=== PATIENT | female | born 1965 | race Caucasian/White ===

== ENCOUNTER 2016-07-28 10:05 | Inpatient (IN) | payer BC ==
--- NOTE | 2016-07-28 10:26 | EDM.PDOC ---
ED HPI GENERAL MEDICAL PROBLEM - General Chief Complaint: General Stated Complaint: CHILLS, BODY ACHES, BLOOD SUGAR ISSUES X6 DAYS Time Seen by Provider: 07/28/16 10:26 - History of Present Illness INITIAL COMMENTS - FREE TEXT/NARRATIVE: 51-year-old female presents emergency room not feeling well. Patient has a history of type 1 diabetes usually she is well controlled but her blood sugars have been going high. Her appetite is decreased. She denies pain other than in her extremities mostly her joints that are just achy. Patient denies any breathing difficulties or shortness of breath no chest discomfort. She has had no abdominal pain no nausea no vomiting. The patient is somewhat stressed out because she has many things she would like to do but just doesn't have the energy to get it done. generalized Pain Score (Numeric/FACES): 8 - Related Data Allergies Allergy/AdvReac Type Severity Reaction Status Date / Time Influenza Virus Vaccines Allergy Itching Verified 07/28/16 10:23 pneumococcal vaccine Allergy Redness Verified 07/28/16 10:23 Home Meds: Home Meds Hydrochlorothiazide 25 mg PO DAILY 07/28/16 [History] Insulin Aspart [NovoLOG] 100 unit SUBCUT ASDIRECTED PRN 07/28/16 [History] Insulin Glarg,Human.Rec.Analog [LantUS] 0 unit SUBCUT DAILY 07/28/16 [History] Lisinopril 40 mg PO DAILY 07/28/16 [History] Meloxicam 15 mg PO DAILY 07/28/16 [History] [place]-3/DHA/Epa/Fish Oil [Fish Oil 1,000 mg Softgel] 1 each PO DAILY 07/28/16 [ History] Venlafaxine [Effexor XR] 37.5 mg PO DAILY 07/28/16 [History] traZODone HCl [Trazodone HCl] 50 mg PO BEDTIME PRN 07/28/16 [History] ED ROS GENERAL - Review of Systems Review Of Systems: See Below Constitutional: Reports: no symptoms HEENT: Reports: No symptoms Respiratory: Reports: No Symptoms Cardiovascular: Reports: No symptoms Endocrine: Reports: fatigue, high glucose GI/Abdominal: Reports: No symptoms : Reports: no symptoms Musculoskeletal: Reports: joint pain, muscle pain. Denies: joint swelling Skin: Reports: other (She's developed a yeast type rash in her left lower abdomen) Neurological: Reports: No Symptoms Psychiatric: Reports: No symptoms ED EXAM, GENERAL - Physical Exam Exam: See Below Exam Limited By: No limitations General Appearance: alert, no apparent distress, other (No distress no smell of ketones) Eye Exam: bilateral eye: normal inspection Ears: normal external exam, normal canal, hearing grossly normal, normal TMs Head: atraumatic, normocephalic Neck: normal inspection, supple, non-tender, full range of motion. No: lymphadenopathy (L), lymphadenopathy (R) Respiratory/Chest: no respiratory distress, lungs clear, normal breath sounds Cardiovascular: regular rate, rhythm, no edema, no murmur GI/Abdominal: normal bowel sounds, soft, non tender, no organomegaly, no distention, no abnormal bruit, no mass Back Exam: normal inspection Extremities: normal inspection, no pedal edema Neurological: alert, oriented, normal cognition EKG INTERPRETATION EKG Date: 07/28/16 Rhythm: NSR [place]: normal P-wave: present QRS: normal ST-T: normal QT: normal Comparison: NA - no prior EKG Course - Vital Signs Last Recorded V/S: Last Vital Signs Temp 36.7 C 07/28/16 10:15 Pulse 84 07/28/16 11:54 Resp 18 07/28/16 11:54 BP 141/80 H 07/28/16 11:54 Pulse Ox 97 07/28/16 11:54 - Orders/Labs/Meds Orders: Active Orders 24 hr Category Date Time Status Patient Status [ADT] Stat ADT 07/28/16 12:13 Active EKG Documentation Completion [RC] STAT Care 07/28/16 12:24 Active Height and Weight [RC] DAILY Care 07/28/16 12:32 Active Intake and Output [RC] QSHIFT Care 07/28/16 12:32 Active Oxygen Therapy [RC] PRN Care 07/28/16 12:32 Active RT Aerosol Therapy [RC] ASDIRECTED Care 07/28/16 12:34 Active Up With Assistance [RC] ASDIRECTED Care 07/28/16 12:32 Active Up ad Jaja [RC] ASDIRECTED Care 07/28/16 12:32 Active VTE/DVT Education [RC] PER UNIT ROUTINE Care 07/28/16 12:32 Active Vital Signs [RC] Q4H Care 07/28/16 12:32 Active Consult to Case Management [CONS] Routine Cons 07/28/16 12:34 Active Consult to Diabetic Nurse Specialist [CONS] Routine Cons 07/28/16 12:34 Active Consult to Latex Foam Worker [CONS] Routine Cons 07/28/16 12:34 Active Respiratory Care Assess and Treatment [CONS] Routine Cons 07/28/16 12:34 Active Consistent Carbohydrate Diet [DIET] Diet 07/28/16 Lunch Active BASIC METABOLIC PANEL,BMP [CHEM] AM Lab 07/29/16 05:11 Ordered BASIC METABOLIC PANEL,BMP [CHEM] AM Lab 07/30/16 05:11 Ordered BASIC METABOLIC PANEL,BMP [CHEM] AM Lab 07/31/16 05:11 Ordered BASIC METABOLIC PANEL,BMP [CHEM] AM Lab 08/01/16 05:11 Ordered C-REACTIVE PROTEIN [CHEM] AM Lab 07/29/16 05:11 Ordered C-REACTIVE PROTEIN [CHEM] AM Lab 07/30/16 05:11 Ordered C-REACTIVE PROTEIN [CHEM] AM Lab 07/31/16 05:11 Ordered CBC WITH AUTO DIFF [HEME] AM Lab 07/29/16 05:11 Ordered CBC WITH AUTO DIFF [HEME] AM Lab 07/30/16 05:11 Ordered CBC WITH AUTO DIFF [HEME] AM Lab 07/31/16 05:11 Ordered CBC WITH AUTO DIFF [HEME] AM Lab 08/01/16 05:11 Ordered CULTURE BLOOD [BC] Stat Lab 07/28/16 12:06 Received CULTURE BLOOD [BC] Stat Lab 07/28/16 12:16 Received CULTURE STREP A CONFIRMATION [RM] Stat Lab 07/28/16 10:50 Results CULTURE URINE [RM] Stat Lab 07/28/16 10:40 Received LIPID PANEL [CHEM] AM Lab 07/29/16 05:11 Ordered MAGNESIUM [CHEM] AM Lab 07/29/16 05:11 Ordered MAGNESIUM [CHEM] AM Lab 07/30/16 05:11 Ordered MAGNESIUM [CHEM] AM Lab 07/31/16 05:11 Ordered MAGNESIUM [CHEM] AM Lab 08/01/16 05:11 Ordered STREP SCRN A RAPID W CULT CONF [RM] Stat Lab 07/28/16 10:50 Results Acetaminophen [Tylenol] Med 07/28/16 12:32 Active 650 mg PO Q4H PRN Acetaminophen/HYDROcodone [[place] 325-5 MG] Med 07/28/16 12:32 Active 1 tab PO Q4H PRN Albuterol [Proventil Neb Soln] Med 07/28/16 12:32 Active 2.5 mg NEB Q2H PRN Aspirin Med 07/29/16 09:00 Ordered 81 mg PO DAILY Bisacodyl [Dulcolax] Med 07/28/16 12:32 Active 5 mg PO DAILY PRN Docusate Sodium/Sennosides [Senna Plus] Med 07/28/16 12:32 Active 1 tab PO BID PRN Enoxaparin [Lovenox] Med 07/29/16 09:00 Active 30 mg SUBCUT DAILY Fish Oil/[place]-3 Fatty Acids [Fish Oil] Med 07/29/16 09:00 Active 1 gm PO DAILY HYDROmorphone [Dilaudid] Med 07/28/16 12:32 Active 0.25 mg IVPUSH Q2H PRN Hydrochlorothiazide Med 07/29/16 09:00 Active 25 mg PO DAILY Insulin Aspart [NovoLOG] Med 07/28/16 12:37 Pending 100 unit SUBCUT ASDIRECTED PRN LORazepam [Ativan] Med 07/28/16 12:32 Active 1 mg IV Q6H PRN Lisinopril [Prinivil] Med 07/29/16 09:00 Active 40 mg PO DAILY Magnesium Rep Pharmacy to Dose [Pharmacy to Dose - Med 07/28/16 13:30 Ordered Magnesium Replacement] 1 dose .XX ASDIRECTED Ondansetron [Zofran] Med 07/28/16 12:32 Active 4 mg IV Q6H PRN Polyethylene Glycol 3350 [MiraLAX] Med 07/28/16 12:32 Active 17 gm PO DAILY PRN Potassium Rep Pharmacy to Dose [Pharmacy to Dose - Med 07/28/16 13:30 Ordered Potassium Replacement] 1 dose .XX ASDIRECTED Sodium Chloride 0.9% [Normal Saline] 1,000 ml Med 07/28/16 10:45 Active IV ASDIRECTED Temazepam [Restoril] Med 07/28/16 12:32 Active 15 mg PO BEDTIME PRN Venlafaxine [Effexor XR] Med 07/29/16 09:00 Active 37.5 mg PO DAILY cefTRIAXone [Rocephin] 1 gm Med 07/29/16 11:00 Active Sodium Chloride 0.9% [Normal Saline] 100 ml IV Q24H traZODone Med 07/28/16 12:37 Active 50 mg PO BEDTIME PRN Resuscitation Status Routine Resus Stat 07/28/16 12:32 Ordered Medication Orders Acetaminophen (Tylenol) 650 mg PO Q4H PRN PRN Reason: Pain (Mild 1-3)/fever Hydrocodone Bitart/Acetaminophen ([place] 325-5 Mg) 1 tab PO Q4H PRN PRN Reason: Pain (moderate 4-6) Albuterol (Proventil Neb Soln) 2.5 mg NEB Q2H PRN PRN Reason: Shortness Of Breath/wheezing Aspirin (Aspirin) 81 mg PO DAILY [facility] Bisacodyl (Dulcolax) 5 mg PO DAILY PRN PRN Reason: Constipation Enoxaparin Sodium (Lovenox) 30 mg SUBCUT DAILY [facility] Fish Oil (Fish Oil) 1 gm PO DAILY [facility] Hydrochlorothiazide (Hydrochlorothiazide) 25 mg PO DAILY [facility] Hydromorphone HCl (Dilaudid) 0.25 mg IVPUSH Q2H PRN PRN Reason: Pain (severe 7-10) Sodium Chloride (Normal Saline) 1,000 mls @ 125 mls/hr IV ASDIRECTED [facility] Last Infusion: 07/28/16 11:35 Dose: 999 mls/hr Admin: 07/28/16 11:01 Dose: 125 mls/hr Ceftriaxone Sodium 1 gm/ (Sodium Chloride) 100 mls @ 200 mls/hr IV Q24H [facility] Insulin Aspart (Novolog) 100 unit SUBCUT ASDIRECTED PRN PRN Reason: blood sugars Lisinopril (Prinivil) 40 mg PO DAILY [facility] Lorazepam (Ativan) 1 mg IV Q6H PRN PRN Reason: Anxiety Magnesium Sulfate (Pharmacy To Dose - Magnesium Replacement) 1 dose .XX ASDIRECTED [facility] Ondansetron HCl (Zofran) 4 mg IV Q6H PRN PRN Reason: Nausea/Vomiting Polyethylene Glycol (Miralax) 17 gm PO DAILY PRN PRN Reason: Constipation Potassium Chloride (Pharmacy To Dose - Potassium Replacement) 1 dose .XX ASDIRECTED [facility] Senna/Docusate Sodium (Senna Plus) 1 tab PO BID PRN PRN Reason: Constipation Temazepam (Restoril) 15 mg PO BEDTIME PRN PRN Reason: Sleep Trazodone HCl (Trazodone) 50 mg PO BEDTIME PRN PRN Reason: Sleep Venlafaxine HCl (Effexor Xr) 37.5 mg PO DAILY [facility] Labs: Laboratory Tests 07/28/16 07/28/16 07/28/16 Range/Units 10:40 10:50 10:50 WBC 4.81 (3.98-10.04) K/mm3 RBC 3.26 L (3.98-5.22) M/mm3 Hgb 11.7 (11.2-15.7) gm/L Hct 32.7 L (34.1-44.9) % MCV 100.3 H (79.4-94.8) fl MCH 35.9 H (25.6-32.2) pg MCHC 35.8 H (32.2-35.5) g/dl RDW Std Deviation 43.7 (36.4-46.3) fL Plt Count 113 L (182-369) K/mm3 MPV 10.6 (9.4-12.3) fl Neutrophils % (Manual) 72 H (40-60) % Band Neutrophils % 0 (0-10) % Lymphocytes % (Manual) 26 (20-40) % Atypical Lymphs % 0 % Monocytes % (Manual) 2 (2-10) % Eosinophils % (Manual) 0 L (0.7-5.8) % Basophils % (Manual) 0 L (0.1-1.2) Platelet Estimate Decreased Plt Morphology Comment See note Polychromasia Few Anisocytosis 1+ slight Macrocytosis 1+ slight RBC Morph Comment Not Reportable Sodium 128 L (136-145) mEq/L Potassium 3.5 (3.5-5.1) mEq/L Chloride 92 L (98-107) mEq/L Carbon Dioxide 23 (21-32) mEq/L Anion Gap 16.5 H (5-15) BUN 26 H (7-18) mg/dL Creatinine 1.8 H (0.55-1.02) mg/dL Est Cr Clr Drug Dosing 39.54 mL/min Estimated GFR (MDRD) 30 (>60) mL/min BUN/Creatinine Ratio 14.4 (14-18) Glucose 532 H* (74-106) mg/dL Hemoglobin A1c (4.50-6.20) % Calcium 8.5 (8.5-10.1) mg/dL Total Bilirubin 0.8 (0.2-1.0) mg/dL AST 17 (15-37) U/L ALT 33 (14-59) U/L Alkaline Phosphatase 80 (46-116) U/L C-Reactive Protein (<1.0) mg/dL Total Protein 7.7 (6.4-8.2) g/dl Albumin 3.4 (3.4-5.0) g/dl Globulin 4.3 gm/dL Albumin/Globulin Ratio 0.8 L (1-2) Urine Color Yellow (Yellow) Urine Appearance Cloudy H (Clear) Urine pH 5.5 (5.0-8.0) Ur Specific [place] 1.020 (1.005-1.030) Urine Protein 2+ H (Negative) Urine Glucose (UA) 2+ H (Negative) Urine Ketones Trace H (Negative) Urine Occult Blood 3+ H (Negative) Urine Nitrite Negative (Negative) Urine Bilirubin Negative (Negative) Urine Urobilinogen 0.2 (0.2-1.0) Ur Leukocyte Esterase Trace H (Negative) Urine RBC 5-10 H (0-5) /hpf Urine WBC 75-100 H (0-5) /hpf Ur Epithelial Cells Not Reportable Ur Squamous Epith Cells 10-20 H (0-5) /hpf Urine Bacteria Many H (FEW) /hpf Urine Mucus Not seen (FEW) /hpf Ketones (0.0-0.3) mM Monoscreen (NEGATIVE) 07/28/16 07/28/16 07/28/16 Range/Units 10:50 10:50 10:50 WBC (3.98-10.04) K/mm3 RBC (3.98-5.22) M/mm3 Hgb (11.2-15.7) gm/L Hct (34.1-44.9) % MCV (79.4-94.8) fl MCH (25.6-32.2) pg MCHC (32.2-35.5) g/dl RDW Std Deviation (36.4-46.3) fL Plt Count (182-369) K/mm3 MPV (9.4-12.3) fl Neutrophils % (Manual) (40-60) % Band Neutrophils % (0-10) % Lymphocytes % (Manual) (20-40) % Atypical Lymphs % % Monocytes % (Manual) (2-10) % Eosinophils % (Manual) (0.7-5.8) % Basophils % (Manual) (0.1-1.2) Platelet Estimate Plt Morphology Comment Polychromasia Anisocytosis Macrocytosis RBC Morph Comment Sodium (136-145) mEq/L Potassium (3.5-5.1) mEq/L Chloride (98-107) mEq/L Carbon Dioxide (21-32) mEq/L Anion Gap (5-15) BUN (7-18) mg/dL Creatinine (0.55-1.02) mg/dL Est Cr Clr Drug Dosing mL/min Estimated GFR (MDRD) (>60) mL/min BUN/Creatinine Ratio (14-18) Glucose (74-106) mg/dL Hemoglobin A1c 9.00 H (4.50-6.20) % Calcium (8.5-10.1) mg/dL Total Bilirubin (0.2-1.0) mg/dL AST (15-37) U/L ALT (14-59) U/L Alkaline Phosphatase (46-116) U/L C-Reactive Protein 5.0 H* (<1.0) mg/dL Total Protein (6.4-8.2) g/dl Albumin (3.4-5.0) g/dl Globulin gm/dL Albumin/Globulin Ratio (1-2) Urine Color (Yellow) Urine Appearance (Clear) Urine pH (5.0-8.0) Ur Specific [place] (1.005-1.030) Urine Protein (Negative) Urine Glucose (UA) (Negative) Urine Ketones (Negative) Urine Occult Blood (Negative) Urine Nitrite (Negative) Urine Bilirubin (Negative) Urine Urobilinogen (0.2-1.0) Ur Leukocyte Esterase (Negative) Urine RBC (0-5) /hpf Urine WBC (0-5) /hpf Ur Epithelial Cells Ur Squamous Epith Cells (0-5) /hpf Urine Bacteria (FEW) /hpf Urine Mucus (FEW) /hpf Ketones 0.90 (0.0-0.3) mM Monoscreen (NEGATIVE) 07/28/16 Range/Units 10:50 WBC (3.98-10.04) K/mm3 RBC (3.98-5.22) M/mm3 Hgb (11.2-15.7) gm/L Hct (34.1-44.9) % MCV (79.4-94.8) fl MCH (25.6-32.2) pg MCHC (32.2-35.5) g/dl RDW Std Deviation (36.4-46.3) fL Plt Count (182-369) K/mm3 MPV (9.4-12.3) fl Neutrophils % (Manual) (40-60) % Band Neutrophils % (0-10) % Lymphocytes % (Manual) (20-40) % Atypical Lymphs % % Monocytes % (Manual) (2-10) % Eosinophils % (Manual) (0.7-5.8) % Basophils % (Manual) (0.1-1.2) Platelet Estimate Plt Morphology Comment Polychromasia Anisocytosis Macrocytosis RBC Morph Comment Sodium (136-145) mEq/L Potassium (3.5-5.1) mEq/L Chloride (98-107) mEq/L Carbon Dioxide (21-32) mEq/L Anion Gap (5-15) BUN (7-18) mg/dL Creatinine (0.55-1.02) mg/dL Est Cr Clr Drug Dosing mL/min Estimated GFR (MDRD) (>60) mL/min BUN/Creatinine Ratio (14-18) Glucose (74-106) mg/dL Hemoglobin A1c (4.50-6.20) % Calcium (8.5-10.1) mg/dL Total Bilirubin (0.2-1.0) mg/dL AST (15-37) U/L ALT (14-59) U/L Alkaline Phosphatase (46-116) U/L C-Reactive Protein (<1.0) mg/dL Total Protein (6.4-8.2) g/dl Albumin (3.4-5.0) g/dl Globulin gm/dL Albumin/Globulin Ratio (1-2) Urine Color (Yellow) Urine Appearance (Clear) Urine pH (5.0-8.0) Ur Specific [place] (1.005-1.030) Urine Protein (Negative) Urine Glucose (UA) (Negative) Urine Ketones (Negative) Urine Occult Blood (Negative) Urine Nitrite (Negative) Urine Bilirubin (Negative) Urine Urobilinogen (0.2-1.0) Ur Leukocyte Esterase (Negative) Urine RBC (0-5) /hpf Urine WBC (0-5) /hpf Ur Epithelial Cells Ur Squamous Epith Cells (0-5) /hpf Urine Bacteria (FEW) /hpf Urine Mucus (FEW) /hpf Ketones (0.0-0.3) mM Monoscreen Negative (NEGATIVE) Meds: Medications Generic Name Dose Route Start Last Admin Trade Name Freq PRN Reason Stop Dose Admin Acetaminophen 650 mg 07/28/16 12:32 Tylenol PO Q4H PRN Pain (Mild 1-3)/fever Hydrocodone Bitart/Acetaminophen 1 tab 07/28/16 12:32 [place] 325-5 Mg PO Q4H PRN Pain (moderate 4-6) Albuterol 2.5 mg 07/28/16 12:32 Proventil Neb Soln NEB Q2H PRN Shortness Of Breath/wheezing Aspirin 81 mg 07/29/16 09:00 Aspirin PO DAILY [facility] Bisacodyl 5 mg 07/28/16 12:32 Dulcolax PO DAILY PRN Constipation Enoxaparin Sodium 30 mg 07/29/16 09:00 Lovenox SUBCUT DAILY [facility] Fish Oil 1 gm 07/29/16 09:00 Fish Oil PO DAILY [facility] Hydrochlorothiazide 25 mg 07/29/16 09:00 Hydrochlorothiazide PO DAILY [facility] Hydromorphone HCl 0.25 mg 07/28/16 12:32 Dilaudid IVPUSH Q2H PRN Pain (severe 7-10) Sodium Chloride 1,000 mls @ 125 mls/hr 07/28/16 10:45 07/28/16 11:35 Normal Saline IV 999 mls/hr ASDIRECTED [facility] Infusion Ceftriaxone Sodium 1 gm/ 100 mls @ 200 mls/hr 07/29/16 11:00 Sodium Chloride IV Q24H [facility] Insulin Aspart 100 unit 07/28/16 12:37 Novolog SUBCUT ASDIRECTED PRN blood sugars Lisinopril 40 mg 07/29/16 09:00 Prinivil PO DAILY [facility] Lorazepam 1 mg 07/28/16 12:32 Ativan IV Q6H PRN Anxiety Magnesium Sulfate 1 dose 07/28/16 13:30 Pharmacy To Dose - Magnesium Replacement .XX ASDIRECTED [facility] Ondansetron HCl 4 mg 07/28/16 12:32 Zofran IV Q6H PRN Nausea/Vomiting Polyethylene Glycol 17 gm 07/28/16 12:32 Miralax PO DAILY PRN Constipation Potassium Chloride 1 dose 07/28/16 13:30 Pharmacy To Dose - Potassium Replacement .XX ASDIRECTED [facility] Senna/Docusate Sodium 1 tab 07/28/16 12:32 Senna Plus PO BID PRN Constipation Temazepam 15 mg 07/28/16 12:32 Restoril PO BEDTIME PRN Sleep Trazodone HCl 50 mg 07/28/16 12:37 Trazodone PO BEDTIME PRN Sleep Venlafaxine HCl 37.5 mg 07/29/16 09:00 Effexor Xr PO DAILY [facility] Discontinued Medications Generic Name Dose Route Start Last Admin Trade Name Freq PRN Reason Stop Dose Admin Ceftriaxone Sodium 1 gm/ 100 mls @ 200 mls/hr 07/28/16 11:37 07/28/16 12:23 Sodium Chloride IV 07/28/16 12:06 200 mls/hr ONETIME ONE Administration Insulin Human Regular 5 unit 07/28/16 11:45 07/28/16 11:51 Humulin R IV 07/28/16 11:46 5 unit NOW STA Administration Protocol Ondansetron HCl 4 mg 07/28/16 11:01 07/28/16 11:05 Zofran IVPUSH 07/28/16 11:02 4 mg ONETIME ONE Administration - Re-Assessments/Exams Free Text/Narrative Re-Assessment/Exam: 07/28/16 12:17 Patient was evaluated she's had a long history of type 1 diabetes did not appear to be ketotic. She was started on fluids labs obtained she has a urinary tract infection appears to be dehydrated with hyponatremia and hypochloremia she is developing what looks like a prerenal azotemia. Ketones are normal. After labs reviewed she was given normal saline liter bolus and 5 units of IV insulin. Blood cultures obtained. She would receive a gram of Rocephin. Case discussed with Dr. Franklin the patient will be hospitalized. Departure - Departure Time of Disposition: 12:16 Disposition: Admitted As Inpatient 65 Clinical Impression: Urinary tract infection, Dehydration, Hyperglycemia due to type 1 diabetes mellitus Referrals: Hema Negrete MD [Primary Care Provider] - Forms: ED Department Discharge - My Orders Last 24 Hours: My Active Orders 07/28/16 10:40 CULTURE URINE [RM] Stat 07/28/16 10:45 Sodium Chloride 0.9% [Normal Saline] 1,000 ml IV ASDIRECTED 07/28/16 10:50 CULTURE STREP A CONFIRMATION [RM] Stat STREP SCRN A RAPID W CULT CONF [RM] Stat 07/28/16 12:06 CULTURE BLOOD [BC] Stat 07/28/16 12:13 Patient Status [ADT] Stat 07/28/16 12:16 CULTURE BLOOD [BC] Stat 07/28/16 12:24 EKG Documentation Completion [RC] STAT - Assessment/Plan Last 24 Hours: My Active Orders 07/28/16 10:40 CULTURE URINE [RM] Stat 07/28/16 10:45 Sodium Chloride 0.9% [Normal Saline] 1,000 ml IV ASDIRECTED 07/28/16 10:50 CULTURE STREP A CONFIRMATION [RM] Stat STREP SCRN A RAPID W CULT CONF [RM] Stat 07/28/16 12:06 CULTURE BLOOD [BC] Stat 07/28/16 12:13 Patient Status [ADT] Stat 07/28/16 12:16 CULTURE BLOOD [BC] Stat 07/28/16 12:24 EKG Documentation Completion [RC] STAT
[2016-07-28] MEDS ORDERED: Sodium Chloride 0.9% 1,000 ML IV SCH (10:45)
[2016-07-28] MEDS ORDERED: Ondansetron 4 MG/2 ML SDV IVPUSH ONE (11:01)
[2016-07-28] MEDS ORDERED: cefTRIAXone 1 GM in Sodium Chloride 0.9% 100 ML IV ONE (11:37)
[2016-07-28] MEDS ORDERED: Insulin Regular, Human 100 Units/ML 3 ML Vial IV STA (11:45)
[2016-07-28] MEDS ORDERED: Polyethylene Glycol 3350 Powder 17 GM Packet PO PRN (12:32)
[2016-07-28] MEDS ORDERED: Bisacodyl 5 MG Tab PO PRN (12:32)
[2016-07-28] MEDS ORDERED: HYDROmorphone 1 MG/ML Syringe IVPUSH PRN (12:32)
[2016-07-28] MEDS ORDERED: Albuterol 0.083% 2.5 MG/3 ML Neb Soln NEB PRN (12:32)
[2016-07-28] MEDS ORDERED: Temazepam 15 MG Cap PO PRN (12:32)
[2016-07-28] MEDS ORDERED: Acetaminophen 325 MG Tab PO PRN (12:32)
[2016-07-28] MEDS ORDERED: traZODone 50 MG Tab PO PRN (12:37)
[2016-07-28] MEDS ORDERED: Insulin Aspart 100 Units/ML 3 ML Pen SUBCUT PRN (12:37)
--- NOTE | 2016-07-28 12:37 | PCM.HP ---
H&P History of Present Illness - General Date of Service: 07/28/16 Admit Problem/Dx: Admission Diagnosis/Problem Admission Diagnosis/Problem Urinary tract infection Source of Information: Patient, Provider, RN notes reviewed History Limitations: Reports: No limitations - History of Present Illness Initial Comments - Free Text/Narative: This is a 51 yo white female with past medical hx/o HTN, Chronic Pain, Anxiety/ Depression and Insomnia who comes in with complaints of not feeling well associated with chills, w/o energy, decreased appetite and multiple joint/ muscle aches. She carries a hx/o DM1 which she has been having issues controlling it. She denies any fever, nausea, vomiting, diarrhea, shortness of breath, chest pain or abdominal pain. Her initial work up in ED shows a CBC remarkable for RBC 3.26, MCV 100.3 and Platelet of 113. Her chemistry is significant for Na 128, CL 92, BUN 26, CR 1.8 , BS 532, and CRP 5. UA is pos for UTI. Her ketones is 0.90. Patient was referred to me for medical management of DM 1 with hyperglycemia and UTI. She is full code. generalized Pain Score (Numeric/FACES): 8 - Related Data Allergies/Adverse Reactions: Allergies Allergy/AdvReac Type Severity Reaction Status Date / Time Influenza Virus Vaccines Allergy Itching Verified 07/28/16 10:23 pneumococcal vaccine Allergy Redness Verified 07/28/16 10:23 Home Medications: Home Meds Hydrochlorothiazide 25 mg PO DAILY 07/28/16 [History] Insulin Aspart [NovoLOG] 100 unit SUBCUT ASDIRECTED PRN 07/28/16 [History] Insulin Glarg,Human.Rec.Analog [LantUS] 0 unit SUBCUT DAILY 07/28/16 [History] Lisinopril 40 mg PO DAILY 07/28/16 [History] Meloxicam 15 mg PO DAILY 07/28/16 [History] [place]-3/DHA/Epa/Fish Oil [Fish Oil 1,000 mg Softgel] 1 each PO DAILY 07/28/16 [ History] Venlafaxine [Effexor XR] 37.5 mg PO DAILY 07/28/16 [History] traZODone HCl [Trazodone HCl] 50 mg PO BEDTIME PRN 07/28/16 [History] Past Medical History HEENT History: Reports: Impaired vision Respiratory History: Reports: Asthma 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: Reports: Fibroids, Other (see below) Other OB/BYN History: hysterectomy with overies intact Psychiatric History: Reports: Depression Endocrine/Metabolic History: Reports: Diabetes, type I Other Endocrine/Metabolic History: recent weight gain - Infectious Disease History Infectious Disease History: Reports: Chicken pox - Past Surgical History GI Surgical History: Reports: Appendectomy, Bariatric procedure, Cholecystectomy Dermatological Surgical History: Reports: Other (see below) Social & Family History - Family History Family Medical History: Noncontributory - Tobacco Use Smoking Status *Q: Never Smoker - Caffeine Use Caffeine Use: Reports: None - Recreational Drug Use Recreational Drug Use: No H&P Review of Systems - Review of Systems: Review Of Systems: See Below General: Reports: fatigue, decreased appetite. Denies: fever, chills HEENT: Reports: no symptoms Pulmonary: Denies: Shortness of Breath Cardiovascular: Denies: chest pain, palpitations, dyspnea on exertion, edema Gastrointestinal: Denies: Abdominal pain, Nausea, Vomiting Genitourinary: Reports: no symptoms Musculoskeletal: Reports: joint pain, muscle pain Skin: Reports: rash (yeast like on left lower abdomen) Psychiatric: Denies: depression, anxiety, hallucinations Neurological: Denies: Confusion, Dizziness, Seizure, Syncope, Difficulty Walking , Weakness, Gait Disturbance Hematologic/Lymphatic: Reports: no symptoms Immunologic: Reports: no symptoms Exam - Exam Exam: See Below - Vital Signs Vital Signs: Last Vital Signs Temp 36.7 C 07/28/16 10:15 Pulse 84 07/28/16 11:54 Resp 18 07/28/16 11:54 BP 141/80 H 07/28/16 11:54 Pulse Ox 97 07/28/16 11:54 Weight: 77.111 kg - Exam General: alert, oriented, cooperative, mild distress HEENT: Conjunctiva clear, EACs clear, EOMI, Hearing intact, Mucosa moist & pink , Nares patent, Normal nasal septum, Posterior pharynx clear, Pupils equal, Pupils reactive, TMs clear Neck: supple, trachea midline, 2+ carotid pulse wo bruit, full range of motion Lungs: Clear to auscultation, Normal respiratory effort Cardiovascular: regular rate, regular rhythm Abdomen: normal bowel sounds, soft, other (skin irritation on left abdominal fold ). No: organomegaly (Female) Exam: Deferred Rectal (Female) Exam: Deferred Back Exam: normal inspection, decreased range of motion Extremities: normal inspection, normal pulses, other (ecchymosis on left lutz). No: clubbing, cyanosis, calf tenderness, edema Skin: warm, dry, intact Neuro Extensive - Mental Status: oriented x3, normal cognition, memory intact Neuro Extensive - Motor, Sensory, Reflexes: CN II-XII intact, normal gait Psychiatric: alert, normal affect, normal mood - Patient Data Lab Results last 24 hrs: Laboratory Results - last 24 hr 07/28/16 07/28/16 07/28/16 Range/Units 10:40 10:50 10:50 WBC 4.81 (3.98-10.04) K/mm3 RBC 3.26 L (3.98-5.22) M/mm3 Hgb 11.7 (11.2-15.7) gm/L Hct 32.7 L (34.1-44.9) % MCV 100.3 H (79.4-94.8) fl MCH 35.9 H (25.6-32.2) pg MCHC 35.8 H (32.2-35.5) g/dl RDW Std Deviation 43.7 (36.4-46.3) fL Plt Count 113 L (182-369) K/mm3 MPV 10.6 (9.4-12.3) fl Neutrophils % (Manual) 72 H (40-60) % Band Neutrophils % 0 (0-10) % Lymphocytes % (Manual) 26 (20-40) % Atypical Lymphs % 0 % Monocytes % (Manual) 2 (2-10) % Eosinophils % (Manual) 0 L (0.7-5.8) % Basophils % (Manual) 0 L (0.1-1.2) Platelet Estimate Decreased Plt Morphology Comment See note Polychromasia Few Anisocytosis 1+ slight Macrocytosis 1+ slight RBC Morph Comment Not Reportable Sodium 128 L (136-145) mEq/L Potassium 3.5 (3.5-5.1) mEq/L Chloride 92 L (98-107) mEq/L Carbon Dioxide 23 (21-32) mEq/L Anion Gap 16.5 H (5-15) BUN 26 H (7-18) mg/dL Creatinine 1.8 H (0.55-1.02) mg/dL Est Cr Clr Drug Dosing 39.54 mL/min Estimated GFR (MDRD) 30 (>60) mL/min BUN/Creatinine Ratio 14.4 (14-18) Glucose 532 H* (74-106) mg/dL Calcium 8.5 (8.5-10.1) mg/dL Total Bilirubin 0.8 (0.2-1.0) mg/dL AST 17 (15-37) U/L ALT 33 (14-59) U/L Alkaline Phosphatase 80 (46-116) U/L Total Protein 7.7 (6.4-8.2) g/dl Albumin 3.4 (3.4-5.0) g/dl Globulin 4.3 gm/dL Albumin/Globulin Ratio 0.8 L (1-2) Urine Color Yellow (Yellow) Urine Appearance Cloudy H (Clear) Urine pH 5.5 (5.0-8.0) Ur Specific [place] 1.020 (1.005-1.030) Urine Protein 2+ H (Negative) Urine Glucose (UA) 2+ H (Negative) Urine Ketones Trace H (Negative) Urine Occult Blood 3+ H (Negative) Urine Nitrite Negative (Negative) Urine Bilirubin Negative (Negative) Urine Urobilinogen 0.2 (0.2-1.0) Ur Leukocyte Esterase Trace H (Negative) Urine RBC 5-10 H (0-5) /hpf Urine WBC 75-100 H (0-5) /hpf Ur Epithelial Cells Not Reportable Ur Squamous Epith Cells 10-20 H (0-5) /hpf Urine Bacteria Many H (FEW) /hpf Urine Mucus Not seen (FEW) /hpf Ketones (0.0-0.3) mM 07/28/16 Range/Units 10:50 WBC (3.98-10.04) K/mm3 RBC (3.98-5.22) M/mm3 Hgb (11.2-15.7) gm/L Hct (34.1-44.9) % MCV (79.4-94.8) fl MCH (25.6-32.2) pg MCHC (32.2-35.5) g/dl RDW Std Deviation (36.4-46.3) fL Plt Count (182-369) K/mm3 MPV (9.4-12.3) fl Neutrophils % (Manual) (40-60) % Band Neutrophils % (0-10) % Lymphocytes % (Manual) (20-40) % Atypical Lymphs % % Monocytes % (Manual) (2-10) % Eosinophils % (Manual) (0.7-5.8) % Basophils % (Manual) (0.1-1.2) Platelet Estimate Plt Morphology Comment Polychromasia Anisocytosis Macrocytosis RBC Morph Comment Sodium (136-145) mEq/L Potassium (3.5-5.1) mEq/L Chloride (98-107) mEq/L Carbon Dioxide (21-32) mEq/L Anion Gap (5-15) BUN (7-18) mg/dL Creatinine (0.55-1.02) mg/dL Est Cr Clr Drug Dosing mL/min Estimated GFR (MDRD) (>60) mL/min BUN/Creatinine Ratio (14-18) Glucose (74-106) mg/dL Calcium (8.5-10.1) mg/dL Total Bilirubin (0.2-1.0) mg/dL AST (15-37) U/L ALT (14-59) U/L Alkaline Phosphatase (46-116) U/L Total Protein (6.4-8.2) g/dl Albumin (3.4-5.0) g/dl Globulin gm/dL Albumin/Globulin Ratio (1-2) Urine Color (Yellow) Urine Appearance (Clear) Urine pH (5.0-8.0) Ur Specific [place] (1.005-1.030) Urine Protein (Negative) Urine Glucose (UA) (Negative) Urine Ketones (Negative) Urine Occult Blood (Negative) Urine Nitrite (Negative) Urine Bilirubin (Negative) Urine Urobilinogen (0.2-1.0) Ur Leukocyte Esterase (Negative) Urine RBC (0-5) /hpf Urine WBC (0-5) /hpf Ur Epithelial Cells Ur Squamous Epith Cells (0-5) /hpf Urine Bacteria (FEW) /hpf Urine Mucus (FEW) /hpf Ketones 0.90 (0.0-0.3) mM Result Diagrams: 07/28/16 10:50 07/28/16 10:50 Shawn Results last 24 hrs: Microbiology 07/28/16 10:50 Influenza Type A Antigen Screen - Final Nasal, Left NEGATIVE INFLUENZA A VIRUS AG Influenza Type B Antigen Screen - Final NEGATIVE INFLUENZA B VIRUS AG 07/28/16 10:50 Group A Streptococcus Rapid Screen - Final Throat NEGATIVE STREP A SCREEN *Q Meaningful Use (ADM) - VTE *Q VTE Criteria *Q: - Stroke *Q Stroke Criteria *Q: - AMI *Q AMI Criteria *Q: Problem List Initiated/Reviewed/Updated: Yes Orders Last 24hrs: Active Orders 24 hr Category Date Time Status Patient Status [ADT] Stat ADT 07/28/16 12:13 Active EKG Documentation Completion [RC] STAT Care 07/28/16 12:24 Active Height and Weight [RC] DAILY Care 07/28/16 12:32 Active Intake and Output [RC] QSHIFT Care 07/28/16 12:32 Active Oxygen Therapy [RC] PRN Care 07/28/16 12:32 Active RT Aerosol Therapy [RC] ASDIRECTED Care 07/28/16 12:34 Active Up With Assistance [RC] ASDIRECTED Care 07/28/16 12:32 Active Up ad Jaja [RC] ASDIRECTED Care 07/28/16 12:32 Active VTE/DVT Education [RC] PER UNIT ROUTINE Care 07/28/16 12:32 Active Vital Signs [RC] Q4H Care 07/28/16 12:32 Active Consult to Case Management [CONS] Routine Cons 07/28/16 12:34 Active Consult to Diabetic Nurse Specialist [CONS] Routine Cons 07/28/16 12:34 Active Consult to Tool Grinding Technician [CONS] Routine Cons 07/28/16 12:34 Active Respiratory Care Assess and Treatment [CONS] Routine Cons 07/28/16 12:34 Active Consistent Carbohydrate Diet [DIET] Diet 07/28/16 Lunch Active A1C [GLYCOSYLATED HEMOGLOBIN,HGBA1C] [CHEM] Stat Lab 07/28/16 12:36 Ordered BASIC METABOLIC PANEL,BMP [CHEM] AM Lab 07/29/16 05:11 Ordered BASIC METABOLIC PANEL,BMP [CHEM] AM Lab 07/30/16 05:11 Ordered BASIC METABOLIC PANEL,BMP [CHEM] AM Lab 07/31/16 05:11 Ordered BASIC METABOLIC PANEL,BMP [CHEM] AM Lab 08/01/16 05:11 Ordered C-REACTIVE PROTEIN [CHEM] AM Lab 07/29/16 05:11 Ordered C-REACTIVE PROTEIN [CHEM] AM Lab 07/30/16 05:11 Ordered C-REACTIVE PROTEIN [CHEM] AM Lab 07/31/16 05:11 Ordered C-REACTIVE PROTEIN [CHEM] Stat Lab 07/28/16 12:34 Ordered CBC WITH AUTO DIFF [HEME] AM Lab 07/29/16 05:11 Ordered CBC WITH AUTO DIFF [HEME] AM Lab 07/30/16 05:11 Ordered CBC WITH AUTO DIFF [HEME] AM Lab 07/31/16 05:11 Ordered CBC WITH AUTO DIFF [HEME] AM Lab 08/01/16 05:11 Ordered CULTURE BLOOD [BC] Stat Lab 07/28/16 12:06 Received CULTURE BLOOD [BC] Stat Lab 07/28/16 12:16 Received CULTURE STREP A CONFIRMATION [RM] Stat Lab 07/28/16 10:50 Results CULTURE URINE [RM] Stat Lab 07/28/16 10:40 Received MAGNESIUM [CHEM] AM Lab 07/29/16 05:11 Ordered MAGNESIUM [CHEM] AM Lab 07/30/16 05:11 Ordered MAGNESIUM [CHEM] AM Lab 07/31/16 05:11 Ordered MAGNESIUM [CHEM] AM Lab 08/01/16 05:11 Ordered STREP SCRN A RAPID W CULT CONF [RM] Stat Lab 07/28/16 10:50 Results Acetaminophen [Tylenol] Med 07/28/16 12:32 Ordered 650 mg PO Q4H PRN Acetaminophen/HYDROcodone [[place] 325-5 MG] Med 07/28/16 12:32 Ordered 1 tab PO Q4H PRN Albuterol [Proventil Neb Soln] Med 07/28/16 12:32 Ordered 2.5 mg NEB Q2H PRN Bisacodyl [Dulcolax] Med 07/28/16 12:32 Ordered 5 mg PO DAILY PRN Docusate Sodium/Sennosides [Senna Plus] Med 07/28/16 12:32 Ordered 1 tab PO BID PRN Enoxaparin [Lovenox] Med 07/29/16 09:00 Ordered 30 mg SUBCUT DAILY HYDROmorphone [Dilaudid] Med 07/28/16 12:32 Ordered 0.25 mg IVPUSH Q2H PRN LORazepam [Ativan] Med 07/28/16 12:32 Ordered 1 mg IV Q6H PRN Ondansetron [Zofran] Med 07/28/16 12:32 Ordered 4 mg IV Q6H PRN Polyethylene Glycol 3350 [MiraLAX] Med 07/28/16 12:32 Ordered 17 gm PO DAILY PRN Sodium Chloride 0.9% [Normal Saline] 1,000 ml Med 07/28/16 10:45 Active IV ASDIRECTED Temazepam [Restoril] Med 07/28/16 12:32 Ordered 15 mg PO BEDTIME PRN Resuscitation Status Routine Resus Stat 07/28/16 12:32 Ordered Medication Orders Sodium Chloride (Normal Saline) 1,000 mls @ 125 mls/hr IV ASDIRECTED MAGO Last Infusion: 07/28/16 11:35 Dose: 999 mls/hr Admin: 07/28/16 11:01 Dose: 125 mls/hr Assessment/Plan Comment:: Assessment/Plan: Acute: Urinary Tract Infection - UA pos - CRP 5.0 - Risk factor: poorly controlled DM - UA Cx and Sx - IV Rocephin 1 gram daily Hyperglycemia with DM1.5 (LEE) - She used to be DM2 and now DM1 - BS 532 - Ketones 0.90 (normal) - A1C in April in the 5s per patient - A1C now is 9 - Insulin Regimen: she used to be on LA and SA, now only uses Lantus and units varies based on her intake - Patient I think is non-compliant - Accu-check and ISS - New Insulin Regimen based on weight: 38 TDI 19 units for Lantus in AM and 6 units Novolog SubQ with each meal Pseudo-hyponatremia - NA 128 - 2/2 Hyperglycemia - Treatment underlying cause Dehydration - BUN/Cr 26/1.8 - Spec 1.020 - She is clinically dehydrated - IV NS at 125 cc/hr Generalized Join/Muscle Aches - Strep and Influenza negative - Screen for Mononucleosis - Supportive care 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
[2016-07-28] MEDS ORDERED: 50% Dextrose in Water 50 ML Syringe IVPUSH PRN (15:26)
[2016-07-28] MEDS: Potassium Chloride 20 MEQ Tab.ER PO SCH ×2 (15:49→17:01)
[2016-07-28] MEDS: Insulin Aspart 100 Units/ML 3 ML Pen SUBCUT SCH ×3 (16:38→21:01)
[2016-07-28] MEDS: Sodium Chloride 0.9% 1,000 ML IV SCH (16:45)
[2016-07-28] MEDS ORDERED: Insulin Aspart 100 Units/ML 3 ML Pen SUBCUT SCH (17:00)
[2016-07-28] MEDS: Ondansetron 4 MG/2 ML SDV IV PRN (17:55)
[2016-07-28] MEDS: Temazepam 15 MG Cap PO PRN (21:06)
[2016-07-28] MEDS: Multivitamin/Iron/Folic Acid Tab PO SCH (22:06)
[2016-07-28] MEDS: Nystatin Topical Powder 15 GM Bottle TOP SCH (22:07)
[2016-07-29] MEDS: Sodium Chloride 0.9% 1,000 ML IV SCH ×3 (01:06→16:37)
[2016-07-29] MEDS: Ondansetron 4 MG/2 ML SDV IV PRN ×3 (07:45→18:30)
--- NOTE | 2016-07-29 07:55 | PCM.PN ---
- General Info Date of Service: 07/29/16 Admission Dx/Problem (Free Text): Admission Diagnosis/Problem Admission Diagnosis/Problem Urinary tract infection Subjective Update: Follow Up Functional Status: Reports: pain controlled, tolerating diet, ambulating, urinating. Denies: new symptoms - Review of Systems General: Reports: Malaise. Denies: Fever, Chills HEENT: Reports: no symptoms Pulmonary: Denies: shortness of breath Cardiovascular: Denies: Chest Pain, Edema Gastrointestinal: Denies: Abdominal pain, Nausea, Vomiting Genitourinary: Reports: no symptoms Musculoskeletal: Reports: joint pain, other (muscle aches) Skin: Denies: cyanosis, jaundice, pruritis, rash Neurological: Reports: Weakness. Denies: Confusion, Difficulty Walking Psychiatric: Denies: depression, anxiety, hallucinations Systems Review Comment:: No overnight issues. She slept very well. She feels better. Her UA is pos for GNR. She has no new complaints. He BS is not well controlled. Hgb is 9.5 from 11.7, Mg is 1.1 and lipid panel is abnormal. - Patient Data Vitals - most recent: Last Vital Signs Temp 37.2 C 07/29/16 07:35 Pulse 89 07/29/16 07:35 Resp 13 07/29/16 07:35 BP 144/83 H 07/29/16 07:35 Pulse Ox 98 07/29/16 07:35 Weight - most recent: 79.515 kg I&O - last 24 hours: Intake & Output 07/28/16 07/29/16 07/29/16 22:59 06:59 14:59 Intake Total 1480 800 Output Total 1150 Balance 1480 -350 Lab Results last 24 hrs: Laboratory Results - last 24 hr 07/28/16 07/28/16 07/28/16 Range/Units 13:42 16:37 21:00 WBC (3.98-10.04) K/mm3 RBC (3.98-5.22) M/mm3 Hgb (11.2-15.7) gm/L Hct (34.1-44.9) % MCV (79.4-94.8) fl MCH (25.6-32.2) pg MCHC (32.2-35.5) g/dl RDW Std Deviation (36.4-46.3) fL Plt Count (182-369) K/mm3 MPV (9.4-12.3) fl Neut % (Auto) (34.0-71.1) % Lymph % (Auto) (19.3-51.7) % Hayes % (Auto) (4.7-12.5) % Eos % (Auto) (0.7-5.8) Baso % (Auto) (0.1-1.2) % Neut # (Auto) (1.56-6.13) K/mm3 Lymph # (Auto) (1.18-3.74) K/mm3 Hayes # (Auto) (0.24-0.36) K/mm3 Eos # (Auto) (0.04-0.36) K/mm3 Baso # (Auto) (0.01-0.08) K/mm3 Manual Slide Review Sodium (136-145) mEq/L Potassium (3.5-5.1) mEq/L Chloride (98-107) mEq/L Carbon Dioxide (21-32) mEq/L Anion Gap (5-15) BUN (7-18) mg/dL Creatinine (0.55-1.02) mg/dL Est Cr Clr Drug Dosing mL/min Estimated GFR (MDRD) (>60) mL/min BUN/Creatinine Ratio (14-18) Glucose (74-106) mg/dL POC Glucose 281 H 297 H 288 H (70-105) mg/dL Calcium (8.5-10.1) mg/dL Magnesium (1.8-2.4) mg/dl C-Reactive Protein (<1.0) mg/dL Triglycerides (<150) mg/dL Cholesterol (<200) mg/dL LDL Cholesterol Direct (<100) mg/dL HDL Cholesterol (40-59) mg/dL 07/29/16 07/29/16 07/29/16 Range/Units 06:00 06:00 06:19 WBC 4.88 (3.98-10.04) K/mm3 RBC 2.68 L (3.98-5.22) M/mm3 Hgb 9.5 L (11.2-15.7) gm/L Hct 27.5 L (34.1-44.9) % MCV 102.6 H (79.4-94.8) fl MCH 35.4 H (25.6-32.2) pg MCHC 34.5 (32.2-35.5) g/dl RDW Std Deviation 44.4 (36.4-46.3) fL Plt Count 112 L (182-369) K/mm3 MPV 10.2 (9.4-12.3) fl Neut % (Auto) 49.0 (34.0-71.1) % Lymph % (Auto) 34.4 (19.3-51.7) % Hayes % (Auto) 12.7 H (4.7-12.5) % Eos % (Auto) 1.4 (0.7-5.8) Baso % (Auto) 2.3 H (0.1-1.2) % Neut # (Auto) 2.39 (1.56-6.13) K/mm3 Lymph # (Auto) 1.68 (1.18-3.74) K/mm3 Hayes # (Auto) 0.62 H (0.24-0.36) K/mm3 Eos # (Auto) 0.07 (0.04-0.36) K/mm3 Baso # (Auto) 0.11 H (0.01-0.08) K/mm3 Manual Slide Review Abnormal smear Sodium 139 (136-145) mEq/L Potassium 4.2 (3.5-5.1) mEq/L Chloride 105 (98-107) mEq/L Carbon Dioxide 23 (21-32) mEq/L Anion Gap 15.2 H (5-15) BUN 17 (7-18) mg/dL Creatinine 1.2 H (0.55-1.02) mg/dL Est Cr Clr Drug Dosing 59.30 mL/min Estimated GFR (MDRD) 47 (>60) mL/min BUN/Creatinine Ratio 14.2 (14-18) Glucose 297 H (74-106) mg/dL POC Glucose 242 H (70-105) mg/dL Calcium 7.8 L (8.5-10.1) mg/dL Magnesium 1.1 L (1.8-2.4) mg/dl C-Reactive Protein 4.4 H* (<1.0) mg/dL Triglycerides 187 H (<150) mg/dL Cholesterol 128 (<200) mg/dL LDL Cholesterol Direct 67 (<100) mg/dL HDL Cholesterol 36.0 L (40-59) mg/dL Med Orders - Current: Current Medications Acetaminophen (Tylenol) 650 mg PO Q4H PRN PRN Reason: Pain (Mild 1-3)/fever Last Admin: 07/28/16 17:05 Dose: 650 mg Hydrocodone Bitart/Acetaminophen (Britton 325-5 Mg) 1 tab PO Q4H PRN PRN Reason: Pain (moderate 4-6) Albuterol (Proventil Neb Soln) 2.5 mg NEB Q2H PRN PRN Reason: Shortness Of Breath/wheezing Aspirin (Aspirin) 81 mg PO DAILY [facility] Bisacodyl (Dulcolax) 5 mg PO DAILY PRN PRN Reason: Constipation Cyanocobalamin (Vitamin B12) 1,000 mcg PO DAILY [facility] Dextrose/Water (Dextrose 50% In Water) 50 ml IVPUSH ASDIRECTED PRN PRN Reason: Hypoglycemia Enoxaparin Sodium (Lovenox) 30 mg SUBCUT DAILY [facility] Fish Oil (Fish Oil) 1 gm PO DAILY [facility] Hydrochlorothiazide (Hydrochlorothiazide) 25 mg PO DAILY [facility] Hydromorphone HCl (Dilaudid) 0.25 mg IVPUSH Q2H PRN PRN Reason: Pain (severe 7-10) Ceftriaxone Sodium 1 gm/ (Sodium Chloride) 100 mls @ 200 mls/hr IV Q24H [facility] Sodium Chloride (Normal Saline) 1,000 mls @ 125 mls/hr IV ASDIRECTED [facility] Last Admin: 07/29/16 01:06 Dose: 125 mls/hr Insulin Aspart (Novolog) 6 unit SUBCUT TIDAC [facility] Last Admin: 07/28/16 16:38 Dose: 6 units Insulin Aspart (Novolog) 0 unit SUBCUT QIDACANDBED [facility] PRN Reason: Protocol Last Admin: 07/28/16 21:01 Dose: 6 units Insulin Detemir (Levemir) 19 unit SUBCUT DAILY [facility] Lisinopril (Prinivil) 40 mg PO DAILY [facility] Lorazepam (Ativan) 1 mg IV Q6H PRN PRN Reason: Anxiety Magnesium Sulfate (Pharmacy To Dose - Magnesium Replacement) 1 dose .XX ASDIRECTED [facility] Multivitamins/Minerals (Cerovite Advanced Formula Tablet) 1 tab PO BEDTIME [facility] Last Admin: 07/28/16 22:06 Dose: Not Given Nystatin (Nystop) 1 gm TOP BID [facility] Last Admin: 07/28/16 22:07 Dose: 1 applic Nystatin/Triamcinolone Acetonide (Mycolog Crm) 0 gm TOP BID [facility] Last Admin: 07/28/16 22:06 Dose: Not Given Ondansetron HCl (Zofran) 4 mg IV Q6H PRN PRN Reason: Nausea/Vomiting Last Admin: 07/29/16 07:45 Dose: 4 mg Polyethylene Glycol (Miralax) 17 gm PO DAILY PRN PRN Reason: Constipation Potassium Chloride (Pharmacy To Dose - Potassium Replacement) 1 dose .XX ASDIRECTED [facility] Senna/Docusate Sodium (Senna Plus) 1 tab PO BID PRN PRN Reason: Constipation Temazepam (Restoril) 30 mg PO BEDTIME PRN PRN Reason: Sleep Last Admin: 07/28/16 21:06 Dose: 30 mg Trazodone HCl (Trazodone) 50 mg PO BEDTIME PRN PRN Reason: Sleep Triamcinolone Acetonide (Triamcinolone Acetonide 0.1% Crm) 15 gm TOP BID [facility] Venlafaxine HCl (Effexor Xr) 37.5 mg PO DAILY [facility] Discontinued Medications Sodium Chloride (Normal Saline) 1,000 mls @ 125 mls/hr IV ASDIRECTED [facility] Last Infusion: 07/28/16 11:35 Dose: 999 mls/hr Ceftriaxone Sodium 1 gm/ (Sodium Chloride) 100 mls @ 200 mls/hr IV ONETIME ONE Stop: 07/28/16 12:06 Last Admin: 07/28/16 12:23 Dose: 200 mls/hr Insulin Aspart (Novolog) 100 unit SUBCUT ASDIRECTED PRN PRN Reason: blood sugars Insulin Aspart (Novolog) 0 unit SUBCUT QIDACANDBED [facility] PRN Reason: Protocol Insulin Human Regular (Humulin R) 5 unit IV NOW STA PRN Reason: Protocol Stop: 07/28/16 11:46 Last Admin: 07/28/16 11:51 Dose: 5 unit Ondansetron HCl (Zofran) 4 mg IVPUSH ONETIME ONE Stop: 07/28/16 11:02 Last Admin: 07/28/16 11:05 Dose: 4 mg Potassium Chloride (Klor-Con M20) 20 meq PO Q3H [facility] Stop: 07/28/16 18:01 Last Admin: 07/28/16 17:01 Dose: 20 meq Temazepam (Restoril) 15 mg PO BEDTIME PRN PRN Reason: Sleep - Exam General: alert, oriented, cooperative, no acute distress HEENT: Pupils equal, Pupils reactive, EOMI, Mucous membr. moist/pink Neck: supple, trachea midline, no JVD, no thyromegaly Lungs: Clear to auscultation, Normal respiratory effort Cardiovascular: Regular Rate, Regular Rhythm Abdomen: bowel sounds present, soft, no tenderness, no distension (Female) Exam: Deferred Back Exam: normal inspection, decreased range of motion Extremities: no edema, normal pulses, no tenderness/swelling, no clubbing, no cyanosis, no calf tenderness, calf tenderness Skin: warm, dry, intact, other (Abdominal skin rash: looks much better) Neurological: no new focal deficit Psy/Mental Status: alert, normal affect, normal mood - Problem List Review Problem List Initiated/Reviewed/Updated: Yes - My Orders Last 24 Hours: My Active Orders 07/28/16 12:32 Height and Weight [RC] 04 Intake and Output [RC] 04,16 Oxygen Therapy [RC] PRN Up With Assistance [RC] DAILY Up ad Jaja [RC] DAILY VTE/DVT Education [RC] QSHIFT Vital Signs [RC] Q4HR Acetaminophen [Tylenol] 650 mg PO Q4H PRN Acetaminophen/HYDROcodone [Britton 325-5 MG] 1 tab PO Q4H PRN Albuterol [Proventil Neb Soln] 2.5 mg NEB Q2H PRN Bisacodyl [Dulcolax] 5 mg PO DAILY PRN Docusate Sodium/Sennosides [Senna Plus] 1 tab PO BID PRN HYDROmorphone [Dilaudid] 0.25 mg IVPUSH Q2H PRN LORazepam [Ativan] 1 mg IV Q6H PRN Ondansetron [Zofran] 4 mg IV Q6H PRN Polyethylene Glycol 3350 [MiraLAX] 17 gm PO DAILY PRN Resuscitation Status Routine 07/28/16 12:34 RT Aerosol Therapy [RC] ASDIRECTED Consult to Case Management [CONS] Routine Consult to Diabetic Nurse Specialist [CONS] Routine Consult to [employer] Counterperson [CONS] Routine Respiratory Care Assess and Treatment [CONS] Routine 07/28/16 12:37 traZODone 50 mg PO BEDTIME PRN 04/22/17 13:30 Magnesium Rep Pharmacy to Dose [Pharmacy to Dose - Magnesium Replacement] 1 dose .XX ASDIRECTED Potassium Rep Pharmacy to Dose [Pharmacy to Dose - Potassium Replacement] 1 dose .XX ASDIRECTED 07/28/16 15:18 Patient Status [ADT] Routine 07/28/16 15:26 Blood Glucose Check, Bedside [RC] 07,11,17,21 Dextrose 50% in Water 50 ml IVPUSH ASDIRECTED PRN 07/28/16 15:30 Sodium Chloride 0.9% [Normal Saline] 1,000 ml IV ASDIRECTED 07/28/16 17:00 Insulin Aspart [NovoLOG] 6 unit SUBCUT TIDAC Insulin Aspart [NovoLOG] See Protocol SUBCUT QIDACANDBED 07/28/16 18:23 Temazepam [Restoril] 30 mg PO BEDTIME PRN 07/28/16 21:00 Multivitamins/Iron/Folic Acid [Cerovite Advanced Formula Tablet] 1 tab PO BEDTIME Nystatin/Triamcinolone Crm [Mycolog Crm] 0 gm TOP BID 07/28/16 21:30 Nystatin [Nystop] 1 gm TOP BID 07/28/16 Lunch Consistent Carbohydrate Diet [DIET] 07/29/16 09:00 Aspirin 81 mg PO DAILY Cyanocobalamin (Vitamin B12) [Vitamin B12] 1,000 mcg PO DAILY Enoxaparin [Lovenox] 30 mg SUBCUT DAILY Fish Oil/Lyons-3 Fatty Acids [Fish Oil] 1 gm PO DAILY Hydrochlorothiazide 25 mg PO DAILY Insulin Detemir [Levemir] 19 unit SUBCUT DAILY Lisinopril [Prinivil] 40 mg PO DAILY Venlafaxine [Effexor XR] 37.5 mg PO DAILY 07/29/16 10:00 Triamcinolone Acetonide [Triamcinolone Acetonide 0.1% Crm] 15 gm TOP BID 07/29/16 11:00 cefTRIAXone [Rocephin] 1 gm Sodium Chloride 0.9% [Normal Saline] 100 ml IV Q24H 07/30/16 05:11 BASIC METABOLIC PANEL,BMP [CHEM] AM C-REACTIVE PROTEIN [CHEM] AM CBC WITH AUTO DIFF [HEME] AM MAGNESIUM [CHEM] AM 07/31/16 05:11 BASIC METABOLIC PANEL,BMP [CHEM] AM C-REACTIVE PROTEIN [CHEM] AM CBC WITH AUTO DIFF [HEME] AM MAGNESIUM [CHEM] AM 08/01/16 05:11 BASIC METABOLIC PANEL,BMP [CHEM] AM CBC WITH AUTO DIFF [HEME] AM MAGNESIUM [CHEM] AM - Plan Plan:: Assessment/Plan: Acute: Urinary Tract Infection - UA pos for GNR - CRP 5.0 ---> 4.4 - Risk factor: poorly controlled DM - Pending UA Sx - Continue IV Rocephin 1 gram daily Hyperglycemia with DM 1.5 (LEE) - She used to be DM2 and now DM1 - BS 532, now in the upper 200 range - Ketones 0.90 (normal) - A1C in April in the 5s per patient - A1C now is 9 - Insulin Regimen: she used to be on LA and SA, now only uses Lantus and units varies based on her intake - Patient I think is non-compliant - Accu-check and ISS - New Insulin Regimen based on weight: 38 TDI 19 units for Lantus in AM and 6 units Novolog SubQ with each meal - Increased latuns to 20 units Sub Q daily and Novolog 7 units SubQ ACMEAL/ TID Generalized Joint/Muscle Aches - Strep and Influenza negative - Screen for Mononucleosis - Supportive care Cutaneous Candidiasis - 2/2 poorly controlled DM - Anti-fungal topical cream 15 grams BID - Looks better this am Dyslipidemia - Abnormal Trigs and HDL levels - Continue Fish Oil Supplement - Low Cholesterol diet 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
[2016-07-29] MEDS: Insulin Detemir 100 Units/ML 3 ML Pen SUBCUT SCH (08:32)
[2016-07-29] MEDS: Insulin Aspart 100 Units/ML 3 ML Pen SUBCUT SCH ×7 (08:34→21:02)
[2016-07-29] MEDS: Cyanocobalamin (Vitamin B12) 1,000 MCG Tab PO SCH (08:38)
[2016-07-29] MEDS: Fish Oil/Omega-3 Fatty Acids 1 Gm Cap PO SCH (08:38)
[2016-07-29] MEDS: Lisinopril 20 MG Tab PO SCH (08:38)
[2016-07-29] MEDS: Aspirin 81 MG Tab.Chew PO SCH (08:39)
[2016-07-29] MEDS: Venlafaxine 37.5 MG Cap.ER PO SCH (08:39)
[2016-07-29] MEDS: Nystatin Topical Powder 15 GM Bottle TOP SCH (08:39)
[2016-07-29] MEDS: Hydrochlorothiazide 25 MG Tab PO SCH (08:39)
[2016-07-29] MEDS ORDERED: Enoxaparin 30 MG/0.3 ML Syringe SUBCUT SCH (09:00)
[2016-07-29] MEDS ORDERED: INSULIN GLARGINE SUBCUT SCH (09:00)
[2016-07-29] MEDS ORDERED: Non-Formulary Medication 1 Each (Cyanocobalamin (Vitamin B-12) [Vitamin B-12] 1,000 MCG) PO SCH (09:00)
[2016-07-29] MEDS ORDERED: Insulin Detemir 100 Units/ML 3 ML Pen SUBCUT SCH (09:00)
[2016-07-29] MEDS ORDERED: [UNRECOGNIZED DRUG - OTHER] SUBCUT SCH (09:00)
[2016-07-29] MEDS ORDERED: Magnesium Sulfate/Water 2 GM in Premix Bag 1 BAG IV ONE ×3 (09:51→18:00)
[2016-07-29] MEDS ORDERED: Triamcinolone Acetonide 0.1% Crm 15 GM Tube TOP SCH (10:00)
[2016-07-29] MEDS: LORazepam 2 MG/ML MDV IV PRN ×2 (10:29→16:33)
[2016-07-29] MEDS: Acetaminophen/HYDROcodone 325-5 MG Tab PO PRN ×3 (10:29→18:30)
[2016-07-29] MEDS ORDERED: Sodium Chloride 0.9% 100 ML ONE (12:51)
[2016-07-29] MEDS: cefTRIAXone 1 GM in Sodium Chloride 0.9% 100 ML IV SCH (13:32)
[2016-07-29] MEDS ORDERED: Scopolamine 1.5 MG Transdermal Patch TRDERM PRN (16:15)
[2016-07-29] MEDS: Multivitamin/Iron/Folic Acid Tab PO SCH (20:35)
[2016-07-29] MEDS ORDERED: Multivitamins,Therapeutic Tab PO ONE (20:35)
[2016-07-29] MEDS: Temazepam 15 MG Cap PO PRN (20:39)
[2016-07-30] MEDS: Sodium Chloride 0.9% 1,000 ML IV SCH ×3 (00:53→16:49)
[2016-07-30] MEDS: LORazepam 2 MG/ML MDV IV PRN ×3 (05:58→21:09)
[2016-07-30] MEDS: Acetaminophen/HYDROcodone 325-5 MG Tab PO PRN ×2 (06:08→13:12)
[2016-07-30] MEDS: Insulin Detemir 100 Units/ML 3 ML Pen SUBCUT SCH (08:22)
[2016-07-30] MEDS: Insulin Aspart 100 Units/ML 3 ML Pen SUBCUT SCH ×7 (08:24→21:00)
[2016-07-30] MEDS: Lisinopril 20 MG Tab PO SCH (08:26)
[2016-07-30] MEDS: Enoxaparin 40 MG/0.4 ML Syringe SUBCUT SCH (08:26)
[2016-07-30] MEDS: Cyanocobalamin (Vitamin B12) 1,000 MCG Tab PO SCH (08:27)
[2016-07-30] MEDS: Aspirin 81 MG Tab.Chew PO SCH (08:27)
[2016-07-30] MEDS: Hydrochlorothiazide 25 MG Tab PO SCH (08:27)
[2016-07-30] MEDS: Fish Oil/Omega-3 Fatty Acids 1 Gm Cap PO SCH (08:27)
[2016-07-30] MEDS: Venlafaxine 37.5 MG Cap.ER PO SCH (08:27)
[2016-07-30] MEDS ORDERED: HYDROmorphone 0.5 MG/0.5 ML Syringe IVPUSH PRN (10:57)
[2016-07-30] MEDS ORDERED: Temazepam 30 MG Cap PO PRN (10:58)
[2016-07-30] MEDS: cefTRIAXone 1 GM in Sodium Chloride 0.9% 100 ML IV SCH (11:55)
--- NOTE | 2016-07-30 12:12 | PCM.PN ---
- General Info Date of Service: 07/30/16 Admission Dx/Problem (Free Text): Admission Diagnosis/Problem Admission Diagnosis/Problem Urinary tract infection Nkechi is seen this morning. She continues to feel fatigued and with achy joints, slowly improving. She does have discomfort to lower abdomen but no dysuria, no back pain. She has been afebrile. Functional Status: Reports: pain controlled, tolerating diet (minimal to no appetite; no vomiting today- tolerated breakfast well.), ambulating, urinating, new symptoms - Review of Systems General: Reports: Weakness, Fatigue, Malaise HEENT: Reports: no symptoms Pulmonary: Reports: no symptoms Cardiovascular: Reports: No Symptoms Gastrointestinal: Reports: Abdominal pain (achiness to lower abdomen), Decreased appetite, Nausea. Denies: Constipation, Diarrhea, Hematochezia, Melena, Vomiting (no further vomiting, none today) Genitourinary: Reports: no symptoms Musculoskeletal: Reports: no symptoms Skin: Reports: no symptoms Neurological: Reports: No Symptoms Psychiatric: Reports: no symptoms - Patient Data Vitals - most recent: Last Vital Signs Temp 98.1 F 07/30/16 11:58 Pulse 67 07/30/16 11:58 Resp 16 07/30/16 11:58 BP 121/83 07/30/16 11:58 Pulse Ox 98 07/30/16 11:58 Weight - most recent: 181 lb 3.2 oz I&O - last 24 hours: Intake & Output 07/29/16 07/30/16 07/30/16 22:59 06:59 14:59 Intake Total 2740 2355 Output Total 1300 1350 Balance 1440 1005 Lab Results last 24 hrs: Laboratory Results - last 24 hr 07/29/16 07/29/16 07/29/16 Range/Units 12:57 17:12 20:37 WBC (3.98-10.04) K/mm3 RBC (3.98-5.22) M/mm3 Hgb (11.2-15.7) gm/L Hct (34.1-44.9) % MCV (79.4-94.8) fl MCH (25.6-32.2) pg MCHC (32.2-35.5) g/dl RDW Std Deviation (36.4-46.3) fL Plt Count (182-369) K/mm3 MPV (9.4-12.3) fl Neut % (Auto) (34.0-71.1) % Lymph % (Auto) (19.3-51.7) % Elk % (Auto) (4.7-12.5) % Eos % (Auto) (0.7-5.8) Baso % (Auto) (0.1-1.2) % Neut # (Auto) (1.56-6.13) K/mm3 Lymph # (Auto) (1.18-3.74) K/mm3 Elk # (Auto) (0.24-0.36) K/mm3 Eos # (Auto) (0.04-0.36) K/mm3 Baso # (Auto) (0.01-0.08) K/mm3 Manual Slide Review Sodium (136-145) mEq/L Potassium (3.5-5.1) mEq/L Chloride (98-107) mEq/L Carbon Dioxide (21-32) mEq/L Anion Gap (5-15) BUN (7-18) mg/dL Creatinine (0.55-1.02) mg/dL Est Cr Clr Drug Dosing mL/min Estimated GFR (MDRD) (>60) mL/min BUN/Creatinine Ratio (14-18) Glucose (74-106) mg/dL POC Glucose 254 H 92 158 H (70-105) mg/dL Calcium (8.5-10.1) mg/dL Magnesium (1.8-2.4) mg/dl C-Reactive Protein (<1.0) mg/dL 07/30/16 07/30/16 07/30/16 Range/Units 05:10 05:10 08:21 WBC 4.19 (3.98-10.04) K/mm3 RBC 2.64 L (3.98-5.22) M/mm3 Hgb 9.4 L (11.2-15.7) gm/L Hct 27.5 L (34.1-44.9) % MCV 104.2 H (79.4-94.8) fl MCH 35.6 H (25.6-32.2) pg MCHC 34.2 (32.2-35.5) g/dl RDW Std Deviation 46.1 (36.4-46.3) fL Plt Count 129 L (182-369) K/mm3 MPV 10.0 (9.4-12.3) fl Neut % (Auto) 44.7 (34.0-71.1) % Lymph % (Auto) 41.3 (19.3-51.7) % Elk % (Auto) 10.0 (4.7-12.5) % Eos % (Auto) 1.7 (0.7-5.8) Baso % (Auto) 2.1 H (0.1-1.2) % Neut # (Auto) 1.87 (1.56-6.13) K/mm3 Lymph # (Auto) 1.73 (1.18-3.74) K/mm3 Elk # (Auto) 0.42 H (0.24-0.36) K/mm3 Eos # (Auto) 0.07 (0.04-0.36) K/mm3 Baso # (Auto) 0.09 H (0.01-0.08) K/mm3 Manual Slide Review Abnormal smear Sodium 138 (136-145) mEq/L Potassium 4.1 (3.5-5.1) mEq/L Chloride 106 (98-107) mEq/L Carbon Dioxide 25 (21-32) mEq/L Anion Gap 11.1 (5-15) BUN 10 (7-18) mg/dL Creatinine 1.1 H (0.55-1.02) mg/dL Est Cr Clr Drug Dosing 64.69 mL/min Estimated GFR (MDRD) 52 (>60) mL/min BUN/Creatinine Ratio 9.1 L (14-18) Glucose 223 H (74-106) mg/dL POC Glucose 292 H (70-105) mg/dL Calcium 7.9 L (8.5-10.1) mg/dL Magnesium 2.2 (1.8-2.4) mg/dl C-Reactive Protein 3.9 H* (<1.0) mg/dL Shawn Results last 24 hrs: Microbiology 07/28/16 12:16 Aerobic Blood Culture - Preliminary Blood NO GROWTH AFTER 1 DAY Anaerobic Blood Culture - Preliminary NO GROWTH AFTER 1 DAY Med Orders - Current: Current Medications Acetaminophen (Tylenol) 650 mg PO Q4H PRN PRN Reason: Pain (Mild 1-3)/fever Last Admin: 07/28/16 17:05 Dose: 650 mg Hydrocodone Bitart/Acetaminophen ([place] 325-5 Mg) 1 tab PO Q4H PRN PRN Reason: Pain (moderate 4-6) Last Admin: 07/30/16 06:08 Dose: 1 tab Albuterol (Proventil Neb Soln) 2.5 mg NEB Q2H PRN PRN Reason: Shortness Of Breath/wheezing Aspirin (Aspirin) 81 mg PO DAILY [facility] Last Admin: 07/30/16 08:27 Dose: 81 mg Bisacodyl (Dulcolax) 5 mg PO DAILY PRN PRN Reason: Constipation Cyanocobalamin (Vitamin B12) 1,000 mcg PO DAILY [facility] Last Admin: 07/30/16 08:27 Dose: 1,000 mcg Dextrose/Water (Dextrose 50% In Water) 50 ml IVPUSH ASDIRECTED PRN PRN Reason: Hypoglycemia Enoxaparin Sodium (Lovenox) 40 mg SUBCUT DAILY [facility] Last Admin: 07/30/16 08:26 Dose: 40 mg Fish Oil (Fish Oil) 1 gm PO DAILY [facility] Last Admin: 07/30/16 08:27 Dose: 1 gm Hydrochlorothiazide (Hydrochlorothiazide) 25 mg PO DAILY [facility] Last Admin: 07/30/16 08:27 Dose: 25 mg Hydromorphone HCl (Dilaudid) 0.25 mg IVPUSH Q2H PRN PRN Reason: Pain (severe 7-10) Ceftriaxone Sodium 1 gm/ (Sodium Chloride) 100 mls @ 200 mls/hr IV Q24H [facility] Last Admin: 07/30/16 11:55 Dose: 200 mls/hr Sodium Chloride (Normal Saline) 1,000 mls @ 125 mls/hr IV ASDIRECTED [facility] Last Admin: 07/30/16 08:51 Dose: 125 mls/hr Insulin Aspart (Novolog) 0 unit SUBCUT QIDACANDBED [facility] PRN Reason: Protocol Last Admin: 07/30/16 11:56 Dose: 4 units Insulin Aspart (Novolog) 7 unit SUBCUT TIDAC [facility] Last Admin: 07/30/16 11:56 Dose: 7 units Insulin Detemir (Levemir) 20 unit SUBCUT DAILY [facility] Last Admin: 07/30/16 08:22 Dose: 20 units Lisinopril (Prinivil) 40 mg PO DAILY [facility] Last Admin: 07/30/16 08:26 Dose: 40 mg Lorazepam (Ativan) 1 mg IV Q6H PRN PRN Reason: Anxiety Last Admin: 07/30/16 05:58 Dose: 1 mg Magnesium Sulfate (Pharmacy To Dose - Magnesium Replacement) 1 dose .XX ASDIRECTED PRN PRN Reason: rx to dose Miscellaneous Information (Remove Patch) 1 ea TRDERM Q72H PRN PRN Reason: Nausea/Vomiting Multivitamins (Thera) 1 each PO BEDTIME [facility] Nystatin/Triamcinolone Acetonide (Mycolog Crm) 0 gm TOP BID [facility] Last Admin: 07/30/16 08:27 Dose: 1 applic Ondansetron HCl (Zofran) 4 mg IV Q6H PRN PRN Reason: Nausea/Vomiting Last Admin: 07/29/16 18:30 Dose: 4 mg Polyethylene Glycol (Miralax) 17 gm PO DAILY PRN PRN Reason: Constipation Potassium Chloride (Pharmacy To Dose - Potassium Replacement) 1 dose .XX ASDIRECTED PRN PRN Reason: RX TO DOSE Scopolamine (Transderm-Scop) 1.5 mg TRDERM Q72H PRN PRN Reason: Nausea/Vomiting Last Admin: 07/29/16 16:38 Dose: 1.5 mg Senna/Docusate Sodium (Senna Plus) 1 tab PO BID PRN PRN Reason: Constipation Temazepam (Restoril) 30 mg PO BEDTIME PRN PRN Reason: Sleep Trazodone HCl (Trazodone) 50 mg PO BEDTIME PRN PRN Reason: Sleep Venlafaxine HCl (Effexor Xr) 37.5 mg PO DAILY [facility] Last Admin: 07/30/16 08:27 Dose: 37.5 mg Discontinued Medications Enoxaparin Sodium (Lovenox) 30 mg SUBCUT DAILY [facility] Last Admin: 07/29/16 08:38 Dose: 30 mg Hydromorphone HCl (Dilaudid) 0.25 mg IVPUSH Q2H PRN PRN Reason: Pain (severe 7-10) Sodium Chloride (Normal Saline) 1,000 mls @ 125 mls/hr IV ASDIRECTED [facility] Last Infusion: 07/28/16 11:35 Dose: 999 mls/hr Ceftriaxone Sodium 1 gm/ (Sodium Chloride) 100 mls @ 200 mls/hr IV ONETIME ONE Stop: 07/28/16 12:06 Last Admin: 07/28/16 12:23 Dose: 200 mls/hr Magnesium Sulfate 2 gm/ Premix 50 mls @ 25 mls/hr IV ONETIME ONE Stop: 07/29/16 11:50 Last Admin: 07/29/16 10:14 Dose: 25 mls/hr Magnesium Sulfate 2 gm/ Premix 50 mls @ 25 mls/hr IV ONETIME ONE Stop: 07/29/16 19:59 Last Admin: 07/29/16 17:16 Dose: 25 mls/hr Magnesium Sulfate 2 gm/ Premix 50 mls @ 25 mls/hr IV ONETIME ONE Stop: 07/29/16 13:59 Last Admin: 07/29/16 14:09 Dose: 25 mls/hr Sodium Chloride (Normal Saline) Confirm Administered Dose 100 mls @ as directed .ROUTE .STK-MED ONE Stop: 07/29/16 12:52 Last Admin: 07/29/16 13:01 Dose: Not Given Insulin Aspart (Novolog) 100 unit SUBCUT ASDIRECTED PRN PRN Reason: blood sugars Insulin Aspart (Novolog) 0 unit SUBCUT QIDACANDBED [facility] PRN Reason: Protocol Insulin Aspart (Novolog) 6 unit SUBCUT TIDAC [facility] Last Admin: 07/29/16 10:46 Dose: Not Given Insulin Detemir (Levemir) 19 unit SUBCUT DAILY [facility] Insulin Human Regular (Humulin R) 5 unit IV NOW STA PRN Reason: Protocol Stop: 07/28/16 11:46 Last Admin: 07/28/16 11:51 Dose: 5 unit Multivitamins (Thera) 1 each PO ONETIME ONE Stop: 07/29/16 20:36 Last Admin: 07/29/16 20:42 Dose: 1 each Multivitamins/Minerals (Cerovite Advanced Formula Tablet) 1 tab PO BEDTIME [facility] Last Admin: 07/29/16 20:35 Dose: Not Given Nystatin (Nystop) 1 gm TOP BID [facility] Last Admin: 07/29/16 08:39 Dose: 1 applic Ondansetron HCl (Zofran) 4 mg IVPUSH ONETIME ONE Stop: 07/28/16 11:02 Last Admin: 07/28/16 11:05 Dose: 4 mg Potassium Chloride (Klor-Con M20) 20 meq PO Q3H [facility] Stop: 07/28/16 18:01 Last Admin: 07/28/16 17:01 Dose: 20 meq Temazepam (Restoril) 15 mg PO BEDTIME PRN PRN Reason: Sleep Temazepam (Restoril) 30 mg PO BEDTIME PRN PRN Reason: Sleep Last Admin: 07/29/16 20:39 Dose: 30 mg Triamcinolone Acetonide (Triamcinolone Acetonide 0.1% Crm) 15 gm TOP BID [facility] Last Admin: 07/29/16 10:59 Dose: Not Given - Exam Quality Assessment: DVT prophylaxis General: alert, oriented, cooperative, no acute distress HEENT: Pupils equal, Pupils reactive, EOMI, Mucous membr. moist/pink Neck: supple Lungs: Clear to auscultation, Normal respiratory effort Cardiovascular: Regular Rate, Regular Rhythm Abdomen: bowel sounds present, soft, tenderness (mild to lower abdomen, suprapubic tenderness to palpation). No: rigidity, rebound, guarding, distension (Female) Exam: Deferred Back Exam: normal inspection Extremities: no edema, no calf tenderness Peripheral Pulses: 1+: dorsalis pedis (L), dorsalis pedis (R) Skin: warm, dry, intact Neurological: no new focal deficit Psy/Mental Status: alert, normal affect, normal mood - Problem List & Annotations (1) Urinary tract infection SNOMED Code(s): 55980609 Code(s): N39.0 - URINARY TRACT INFECTION, SITE NOT SPECIFIED Status: Acute Priority: High Current Visit: Yes Qualifiers: Urinary tract infection type: acute cystitis (2) Hyperglycemia due to type 1 diabetes mellitus SNOMED Code(s): 180198094078672, 118644046813259 Code(s): E10.65 - TYPE 1 DIABETES MELLITUS WITH HYPERGLYCEMIA Status: Chronic Priority: High Current Visit: Yes (3) Dehydration SNOMED Code(s): 92535155 Code(s): E86.0 - DEHYDRATION Status: Resolved Priority: High Current Visit: Yes - Problem List Review Problem List Initiated/Reviewed/Updated: Yes - Plan Plan:: Assessment/Plan: Acute: Urinary Tract Infection - UA pos for GNR- ecoli; sensitive to Rocephin- cont current tx - CRP 5.0 ---> 4.4-- improving - Risk factor: poorly controlled DM - Pending UA Sx - Continue IV Rocephin 1 gram daily Hyperglycemia with DM 1.5 (LEE) - She used to be DM2 and now DM1 - BS 532, now in the upper 200 range - Ketones 0.90 (normal) - A1C in April in the 5s per patient - A1C now is 9 - Insulin Regimen: she used to be on LA and SA, now only uses Lantus and units varies based on her intake - Patient I think is non-compliant - Accu-check and ISS - New Insulin Regimen based on weight: 38 TDI 19 units for Lantus in AM and 6 units Novolog SubQ with each meal - Increased latuns to 20 units Sub Q daily and Novolog 7 units SubQ ACMEAL/ TID Generalized Joint/Muscle Aches---very slowly improving - Strep and Influenza negative - Screen for Mononucleosis- negative - Supportive care Cutaneous Candidiasis--improved - 2/2 poorly controlled DM - Anti-fungal topical cream 15 grams BID - Looks better this am Dyslipidemia - Abnormal Trigs and HDL levels - Continue Fish Oil Supplement - Low Cholesterol diet Hx/o Gastric Bypass, 22 yrs ago - Stable - Continue oral MVI daily Resolved: S/P Pseudo-hyponatremia - NA 128 --> 139 - 2/2 Hyperglycemia - Treatment underlying cause S/p Dehydration - BUN/Cr 26/1.8 - Spec 1.020 - She is clinically dehydrated - IV NS at 125 cc/hr Plan: She looks much better; clinically improving Continue current treatment; at least 3 days of IV abx Routine AM Labs Diabetic Education Encourage to Ambulate TID as tolerated Additional orders as above DVT/GI prophylax Patient is Full Code
[2016-07-30] MEDS: Ondansetron 4 MG/2 ML SDV IV PRN (13:00)
[2016-07-30] MEDS: Famotidine 20 MG Tab PO SCH ×2 (16:48→20:55)
[2016-07-30] MEDS ORDERED: Multivitamins,Therapeutic Tab PO SCH (21:00)
--- NOTE | 2016-07-30 21:43 | PCM.SN ---
- Free Text/Narrative Note: She got nauseous this afternoon and her glucose dropped to as low as 39. Patient was offered food but refused so she was given Amp of D50 to improved her level. Patient is very picky with her meals and what she wants to eat. Given that I just started her on insulin regimen, I decided to d/c her scheduled Novolog and switched sliding scale instead. If she is better tomorrow , she can go home. Her PCP can continue to follow her insulin regimen. I could tell, she is non- compliant.
[2016-07-31] MEDS: Sodium Chloride 0.9% 1,000 ML IV SCH (04:23)
[2016-07-31] MEDS: Acetaminophen/HYDROcodone 325-5 MG Tab PO PRN (04:25)
[2016-07-31] MEDS: LORazepam 2 MG/ML MDV IV PRN (04:25)
[2016-07-31] MEDS: Insulin Aspart 100 Units/ML 3 ML Pen SUBCUT SCH ×2 (07:01→12:16)
--- NOTE | 2016-07-31 07:19 | PCM.DCSUM1 ---
Discharge Summary - Hospital Course Free Text/Narrative:: This is a 51 yo white female with past medical hx/o HTN, Chronic Pain, Anxiety/ Depression and Insomnia who comes in with complaints of not feeling well associated with chills, w/o energy, decreased appetite and multiple joint/ muscle aches. She carries a hx/o DM1 which she has been having issues controlling it. She denies any fever, nausea, vomiting, diarrhea, shortness of breath, chest pain or abdominal pain. Her initial work up in ED shows a CBC remarkable for RBC 3.26, MCV 100.3 and Platelet of 113. Her chemistry is significant for Na 128, CL 92, BUN 26, CR 1.8 , BS 532, and CRP 5. UA is pos for UTI. Her ketones is 0.90. Patient was referred to Hospitalist service for medical management of DM with hyperglycemia and UTI. She is full code. Patient is admitted, started on IV Rocephin for AUTI, SSI coverage for hyperglycemia. Blood sugars were 170-250's during her stay. A1C is 9.0, she states up from 5.0 since April. CDE was consulted and worked with her. UC came back with ecoli, pansensitive. BC were negative. She rec'd 3 days of IV abx, IVF x 2 days for hydration. She had decreased appetite with intermittent nausea, h.pylori was negative. Perry was also negative and checked due to myalgais and arthralgias. Strenght, appetite slowly improved, labs/CRP improved. She will be discharged home today with 5 day course of Ceftin and instructed to follow up with her PCP Dr. Suarez within 5-7 days of discharge for recheck and to continue to see CDE as outpatient for assistance and continuing ed re: DM. - Discharge Data Discharge Date: 07/31/16 (admit date 07/28/16) Discharge Disposition: Home, Self-Care 01 Condition: Undetermined - Discharge Diagnosis/Problem(s) (1) Urinary tract infection SNOMED Code(s): 94253153 ICD Code: N39.0 - URINARY TRACT INFECTION, SITE NOT SPECIFIED Status: Acute Priority: High Current Visit: Yes Qualifiers: Urinary tract infection type: acute cystitis (2) Hyperglycemia due to type 1 diabetes mellitus SNOMED Code(s): 752441917306401, 025551700971947 ICD Code: E10.65 - TYPE 1 DIABETES MELLITUS WITH HYPERGLYCEMIA Status: Chronic Priority: High Current Visit: Yes (3) Dehydration SNOMED Code(s): 80395841 ICD Code: E86.0 - DEHYDRATION Status: Resolved Priority: High Current Visit: Yes - Patient Summary/Data Operative Procedure(s) Performed: None Complications: None Consults: Consultations 07/28/16 12:34 Consult to Case Management [CONS] Routine Consult to Diabetic Nurse Specialist [CONS] Routine Consult to Sanitation Engineer [CONS] Routine Respiratory Care Assess and Treatment [CONS] Routine Labs Pending at D/C: None Recommended Follow-up Testing/Procedures: Follow up with Dr. Suarez within 5-7 days of discharge Recommend to Follow up with Diabetic Ed for further education/assistance with recent elevations of A1C and blood sugar changes Push fluids Tylenol if needed for pain/achiness Small frequent meals 4-5 times daily Planned Operative Procedure(s) after DC: None Hospital Course: As above - Patient Instructions Diet: Drink 8-10+ Glasses/Day, Diabetic Diet Activity: As Tolerated Showering/Bathing: May Shower Notify Provider of: Fever, Increased Pain, Nausea and/or Vomiting - Discharge Plan Prescriptions/Med Rec: Aspirin 81 mg PO DAILY #30 tab.chew Cefuroxime [Ceftin] 500 mg PO BID #10 tablet Famotidine [Pepcid] 20 mg PO BID #60 tablet Insulin Aspart [NovoLOG] 0 unit SUBCUT QIDACANDBED #3 pen Nystatin/Triamcinolone Crm [Mycolog Crm] 0 gm TOP BID #30 gm Home Medications: Home Meds Cyanocobalamin (Vitamin B-12) [Vitamin B-12] 1,000 mcg PO DAILY 07/28/16 [ History] Hydrochlorothiazide 25 mg PO DAILY 07/28/16 [History] Insulin Aspart [NovoLOG] 100 unit SUBCUT ASDIRECTED PRN 07/28/16 [History] Insulin Glarg,Human.Rec.Analog [Lantus] 0 unit SUBCUT DAILY 07/28/16 [History] Iron 1 tab PO DAILY 07/28/16 [History] Lisinopril 40 mg PO DAILY 07/28/16 [History] Meloxicam 15 mg PO DAILY 07/28/16 [History] Multivitamin [Daily Multiple Vitamin] 1 tab PO DAILY 07/28/16 [History] [place]-3/DHA/Epa/Fish Oil [Fish Oil 1,000 mg Softgel] 2 each PO DAILY 07/28/16 [ History] Venlafaxine [Effexor XR] 37.5 mg PO DAILY 07/28/16 [History] traZODone HCl [Trazodone HCl] 50 mg PO BEDTIME PRN 07/28/16 [History] Acetaminophen [Tylenol] 650 mg PO Q4H PRN #0 tablet 07/31/16 [Rx] Aspirin 81 mg PO DAILY #30 tab.chew 07/31/16 [Rx] Cefuroxime [Ceftin] 500 mg PO BID #10 tablet 07/31/16 [Rx] Famotidine [Pepcid] 20 mg PO BID #60 tablet 07/31/16 [Rx] Insulin Aspart [NovoLOG] 0 unit SUBCUT QIDACANDBED #3 pen 07/31/16 [Rx] Nystatin/Triamcinolone Crm [Mycolog Crm] 0 gm TOP BID #30 gm 07/31/16 [Rx] Patient Handouts: Diabetes and Foot Care, Diabetes and Sick Day Management, Diabetic Ketoacidosis, Urinary Tract Infection, Adult, [place] Forms: ED Department Discharge Referrals: Hema Negrete MD [Primary Care Provider] - - Discharge Summary/Plan Comment DC Time >30 min.: Yes (40 min) - General Info Date of Service: 07/31/16 Admission Dx/Problem (Free Text: Admission Diagnosis/Problem Admission Diagnosis/Problem Urinary tract infection [place] is seen this morning. She continues to feel fatigued and with achy joints, continues to slowly improving. She does have discomfort to lower abdomen but no dysuria, no back pain. She has been afebrile. Appetite is slowly improving also. Functional Status: Reports: pain controlled, tolerating diet, ambulating, urinating. Denies: new symptoms - Review of Systems General: Reports: Fatigue. Denies: Fever HEENT: Reports: no symptoms Pulmonary: Reports: no symptoms Cardiovascular: Reports: No Symptoms Gastrointestinal: Reports: Abdominal pain (suprapubic; improving), Decreased appetite (improving), Nausea (improving). Denies: Diarrhea, Vomiting Genitourinary: Reports: no symptoms Musculoskeletal: Reports: other (generalized achiness slowly improving) Neurological: Reports: No Symptoms Psychiatric: Reports: anxiety (improving slowly) - Patient Data Vitals - Most Recent: Last Vital Signs Temp 98.8 F 07/31/16 04:04 Pulse 66 07/31/16 04:04 Resp 15 07/31/16 04:04 BP 141/76 H 07/31/16 04:04 Pulse Ox 97 07/31/16 04:04 Weight - Most Recent: 184 lb 8 oz I&O - Last 24 hours: Intake & Output 07/30/16 07/31/16 07/31/16 22:59 06:59 14:59 Intake Total 2301 2068 Output Total 1250 1850 Balance 1051 218 Lab Results - Last 24 hrs: Laboratory Results - last 24 hr 07/30/16 07/30/16 07/30/16 Range/Units 05:10 08:21 13:41 WBC (3.98-10.04) K/mm3 RBC (3.98-5.22) M/mm3 Hgb (11.2-15.7) gm/L Hct (34.1-44.9) % MCV (79.4-94.8) fl MCH (25.6-32.2) pg MCHC (32.2-35.5) g/dl RDW Std Deviation (36.4-46.3) fL Plt Count (182-369) K/mm3 MPV (9.4-12.3) fl Neut % (Auto) (34.0-71.1) % Lymph % (Auto) (19.3-51.7) % Perry % (Auto) (4.7-12.5) % Eos % (Auto) (0.7-5.8) Baso % (Auto) (0.1-1.2) % Neut # (Auto) (1.56-6.13) K/mm3 Lymph # (Auto) (1.18-3.74) K/mm3 Perry # (Auto) (0.24-0.36) K/mm3 Eos # (Auto) (0.04-0.36) K/mm3 Baso # (Auto) (0.01-0.08) K/mm3 POC Glucose 292 H 39 L (70-105) mg/dL H. pylori IgG Antibody Negative (NEGATIVE) 07/30/16 07/30/16 07/30/16 Range/Units 14:10 14:49 17:28 WBC (3.98-10.04) K/mm3 RBC (3.98-5.22) M/mm3 Hgb (11.2-15.7) gm/L Hct (34.1-44.9) % MCV (79.4-94.8) fl MCH (25.6-32.2) pg MCHC (32.2-35.5) g/dl RDW Std Deviation (36.4-46.3) fL Plt Count (182-369) K/mm3 MPV (9.4-12.3) fl Neut % (Auto) (34.0-71.1) % Lymph % (Auto) (19.3-51.7) % Perry % (Auto) (4.7-12.5) % Eos % (Auto) (0.7-5.8) Baso % (Auto) (0.1-1.2) % Neut # (Auto) (1.56-6.13) K/mm3 Lymph # (Auto) (1.18-3.74) K/mm3 Perry # (Auto) (0.24-0.36) K/mm3 Eos # (Auto) (0.04-0.36) K/mm3 Baso # (Auto) (0.01-0.08) K/mm3 POC Glucose 41 L 133 H 170 H (70-105) mg/dL H. pylori IgG Antibody (NEGATIVE) 07/30/16 07/31/16 07/31/16 Range/Units 20:59 06:15 07:00 WBC 4.44 (3.98-10.04) K/mm3 RBC 2.72 L (3.98-5.22) M/mm3 Hgb 9.7 L (11.2-15.7) gm/L Hct 28.3 L (34.1-44.9) % MCV 104.0 H (79.4-94.8) fl MCH 35.7 H (25.6-32.2) pg MCHC 34.3 (32.2-35.5) g/dl RDW Std Deviation 46.6 H (36.4-46.3) fL Plt Count 191 (182-369) K/mm3 MPV 10.0 (9.4-12.3) fl Neut % (Auto) 49.5 (34.0-71.1) % Lymph % (Auto) 36.9 (19.3-51.7) % Perry % (Auto) 10.4 (4.7-12.5) % Eos % (Auto) 2.5 (0.7-5.8) Baso % (Auto) 0.5 (0.1-1.2) % Neut # (Auto) 2.20 (1.56-6.13) K/mm3 Lymph # (Auto) 1.64 (1.18-3.74) K/mm3 Perry # (Auto) 0.46 H (0.24-0.36) K/mm3 Eos # (Auto) 0.11 (0.04-0.36) K/mm3 Baso # (Auto) 0.02 (0.01-0.08) K/mm3 POC Glucose 255 H 159 H (70-105) mg/dL H. pylori IgG Antibody (NEGATIVE) ELVIRA Results - Last 24 hrs: Microbiology 07/28/16 12:16 Aerobic Blood Culture - Preliminary Blood NO GROWTH AFTER 2 DAYS Anaerobic Blood Culture - Preliminary NO GROWTH AFTER 2 DAYS Med Orders - Current: Current Medications Acetaminophen (Tylenol) 650 mg PO Q4H PRN PRN Reason: Pain (Mild 1-3)/fever Last Admin: 07/28/16 17:05 Dose: 650 mg Hydrocodone Bitart/Acetaminophen ([place] 325-5 Mg) 1 tab PO Q4H PRN PRN Reason: Pain (moderate 4-6) Last Admin: 07/31/16 04:25 Dose: 1 tab Albuterol (Proventil Neb Soln) 2.5 mg NEB Q2H PRN PRN Reason: Shortness Of Breath/wheezing Aspirin (Aspirin) 81 mg PO DAILY [facility] Last Admin: 07/30/16 08:27 Dose: 81 mg Bisacodyl (Dulcolax) 5 mg PO DAILY PRN PRN Reason: Constipation Last Admin: 07/31/16 06:56 Dose: 5 mg Cyanocobalamin (Vitamin B12) 1,000 mcg PO DAILY [facility] Last Admin: 07/30/16 08:27 Dose: 1,000 mcg Dextrose/Water (Dextrose 50% In Water) 50 ml IVPUSH ASDIRECTED PRN PRN Reason: Hypoglycemia Last Admin: 07/30/16 14:18 Dose: 50 ml Enoxaparin Sodium (Lovenox) 40 mg SUBCUT DAILY [facility] Last Admin: 07/30/16 08:26 Dose: 40 mg Famotidine (Pepcid) 20 mg PO BID [facility] Last Admin: 07/30/16 20:55 Dose: 20 mg Fish Oil (Fish Oil) 1 gm PO DAILY [facility] Last Admin: 07/30/16 08:27 Dose: 1 gm Hydrochlorothiazide (Hydrochlorothiazide) 25 mg PO DAILY [facility] Last Admin: 07/30/16 08:27 Dose: 25 mg Hydromorphone HCl (Dilaudid) 0.25 mg IVPUSH Q2H PRN PRN Reason: Pain (severe 7-10) Ceftriaxone Sodium 1 gm/ (Sodium Chloride) 100 mls @ 200 mls/hr IV Q24H [facility] Last Admin: 07/30/16 11:55 Dose: 200 mls/hr Sodium Chloride (Normal Saline) 1,000 mls @ 125 mls/hr IV ASDIRECTED [facility] Last Admin: 07/31/16 04:23 Dose: 125 mls/hr Insulin Aspart (Novolog) 0 unit SUBCUT QIDACANDBED [facility] PRN Reason: Protocol Last Admin: 07/31/16 07:01 Dose: 2 units Insulin Detemir (Levemir) 20 unit SUBCUT DAILY [facility] Last Admin: 07/30/16 08:22 Dose: 20 units Lisinopril (Prinivil) 40 mg PO DAILY [facility] Last Admin: 07/30/16 08:26 Dose: 40 mg Lorazepam (Ativan) 1 mg IV Q6H PRN PRN Reason: Anxiety Last Admin: 07/31/16 04:25 Dose: 1 mg Magnesium Sulfate (Pharmacy To Dose - Magnesium Replacement) 1 dose .XX ASDIRECTED PRN PRN Reason: rx to dose Miscellaneous Information (Remove Patch) 1 ea TRDERM Q72H PRN PRN Reason: Nausea/Vomiting Multivitamins (Thera) 1 each PO BEDTIME [facility] Last Admin: 07/30/16 20:55 Dose: 1 each Nystatin/Triamcinolone Acetonide (Mycolog Crm) 0 gm TOP BID [facility] Last Admin: 07/30/16 20:54 Dose: 1 applic Ondansetron HCl (Zofran) 4 mg IV Q6H PRN PRN Reason: Nausea/Vomiting Last Admin: 07/30/16 13:00 Dose: 4 mg Polyethylene Glycol (Miralax) 17 gm PO DAILY PRN PRN Reason: Constipation Potassium Chloride (Pharmacy To Dose - Potassium Replacement) 1 dose .XX ASDIRECTED PRN PRN Reason: RX TO DOSE Scopolamine (Transderm-Scop) 1.5 mg TRDERM Q72H PRN PRN Reason: Nausea/Vomiting Last Admin: 07/29/16 16:38 Dose: 1.5 mg Senna/Docusate Sodium (Senna Plus) 1 tab PO BID PRN PRN Reason: Constipation Temazepam (Restoril) 30 mg PO BEDTIME PRN PRN Reason: Sleep Last Admin: 07/30/16 21:08 Dose: 30 mg Trazodone HCl (Trazodone) 50 mg PO BEDTIME PRN PRN Reason: Sleep Venlafaxine HCl (Effexor Xr) 37.5 mg PO DAILY [facility] Last Admin: 07/30/16 08:27 Dose: 37.5 mg Discontinued Medications Enoxaparin Sodium (Lovenox) 30 mg SUBCUT DAILY [facility] Last Admin: 07/29/16 08:38 Dose: 30 mg Hydromorphone HCl (Dilaudid) 0.25 mg IVPUSH Q2H PRN PRN Reason: Pain (severe 7-10) Sodium Chloride (Normal Saline) 1,000 mls @ 125 mls/hr IV ASDIRECTED [facility] Last Infusion: 07/28/16 11:35 Dose: 999 mls/hr Ceftriaxone Sodium 1 gm/ (Sodium Chloride) 100 mls @ 200 mls/hr IV ONETIME ONE Stop: 07/28/16 12:06 Last Admin: 07/28/16 12:23 Dose: 200 mls/hr Magnesium Sulfate 2 gm/ Premix 50 mls @ 25 mls/hr IV ONETIME ONE Stop: 07/29/16 11:50 Last Admin: 07/29/16 10:14 Dose: 25 mls/hr Magnesium Sulfate 2 gm/ Premix 50 mls @ 25 mls/hr IV ONETIME ONE Stop: 07/29/16 19:59 Last Admin: 07/29/16 17:16 Dose: 25 mls/hr Magnesium Sulfate 2 gm/ Premix 50 mls @ 25 mls/hr IV ONETIME ONE Stop: 07/29/16 13:59 Last Admin: 07/29/16 14:09 Dose: 25 mls/hr Sodium Chloride (Normal Saline) Confirm Administered Dose 100 mls @ as directed .ROUTE .STK-MED ONE Stop: 07/29/16 12:52 Last Admin: 07/29/16 13:01 Dose: Not Given Insulin Aspart (Novolog) 100 unit SUBCUT ASDIRECTED PRN PRN Reason: blood sugars Insulin Aspart (Novolog) 0 unit SUBCUT QIDACANDBED [facility] PRN Reason: Protocol Insulin Aspart (Novolog) 6 unit SUBCUT TIDAC [facility] Last Admin: 07/29/16 10:46 Dose: Not Given Insulin Aspart (Novolog) 7 unit SUBCUT TIDAC [facility] Last Admin: 07/30/16 17:56 Dose: Not Given Insulin Detemir (Levemir) 19 unit SUBCUT DAILY [facility] Insulin Human Regular (Humulin R) 5 unit IV NOW STA PRN Reason: Protocol Stop: 07/28/16 11:46 Last Admin: 07/28/16 11:51 Dose: 5 unit Multivitamins (Thera) 1 each PO ONETIME ONE Stop: 07/29/16 20:36 Last Admin: 07/29/16 20:42 Dose: 1 each Multivitamins/Minerals (Cerovite Advanced Formula Tablet) 1 tab PO BEDTIME [facility] Last Admin: 07/29/16 20:35 Dose: Not Given Nystatin (Nystop) 1 gm TOP BID [facility] Last Admin: 07/29/16 08:39 Dose: 1 applic Ondansetron HCl (Zofran) 4 mg IVPUSH ONETIME ONE Stop: 07/28/16 11:02 Last Admin: 07/28/16 11:05 Dose: 4 mg Potassium Chloride (Klor-Con M20) 20 meq PO Q3H [facility]O Stop: 07/28/16 18:01 Last Admin: 07/28/16 17:01 Dose: 20 meq Temazepam (Restoril) 15 mg PO BEDTIME PRN PRN Reason: Sleep Temazepam (Restoril) 30 mg PO BEDTIME PRN PRN Reason: Sleep Last Admin: 07/29/16 20:39 Dose: 30 mg Triamcinolone Acetonide (Triamcinolone Acetonide 0.1% Crm) 15 gm TOP BID [facility] Last Admin: 07/29/16 10:59 Dose: Not Given - Exam Quality Assessment: Reports: DVT prophylaxis General: Reports: alert, oriented, cooperative, no acute distress HEENT: Reports: Pupils equal, Pupils reactive, EOMI, Mucous membr. moist/pink Neck: Reports: supple Lungs: Reports: Clear to auscultation, Normal respiratory effort Cardiovascular: Reports: Regular Rate, Regular Rhythm Abdomen: Reports: bowel sounds present, soft, no distension, tenderness ( minimal to suprapubic area this morning) (Female) Exam: Deferred Rectal (Female) Exam: Deferred Back Exam: Reports: normal inspection Extremities: Reports: no edema Skin: Reports: warm, dry, intact Neurological: Reports: no new focal deficit Psy/Mental Status: Reports: alert, normal affect, normal mood *Q Meaningful Use (DIS) - VTE *Q VTE Criteria *Q: - Stroke *Q Stroke Criteria *Q: - AMI *Q AMI Criteria *Q:
[2016-07-31] MEDS ORDERED: Magnesium Sulfate/Water 2 GM in Premix Bag 1 BAG IV ONE (08:30)
[2016-07-31] MEDS: Lisinopril 20 MG Tab PO SCH (08:45)
[2016-07-31] MEDS: Cyanocobalamin (Vitamin B12) 1,000 MCG Tab PO SCH (08:45)
[2016-07-31] MEDS: Venlafaxine 37.5 MG Cap.ER PO SCH (08:45)
[2016-07-31] MEDS: Fish Oil/Omega-3 Fatty Acids 1 Gm Cap PO SCH (08:45)
[2016-07-31] MEDS: Aspirin 81 MG Tab.Chew PO SCH (08:45)
[2016-07-31] MEDS: Hydrochlorothiazide 25 MG Tab PO SCH (08:46)
[2016-07-31] MEDS: Enoxaparin 40 MG/0.4 ML Syringe SUBCUT SCH (08:46)
[2016-07-31] MEDS: Insulin Detemir 100 Units/ML 3 ML Pen SUBCUT SCH (08:46)
[2016-07-31] MEDS: cefTRIAXone 1 GM in Sodium Chloride 0.9% 100 ML IV SCH (11:06)
[2016-07-31] MEDS: Famotidine 20 MG Tab PO SCH (11:07)
[2016-07-31 11:57] VITALS: BP 113/82
[2016-07-31] MEDS ORDERED: LORazepam 0.5 MG Tab PO ONE (12:04)
== END 2016-07-31 14:09 | disposition home or self-care (01) | DRG 463 ==
LOC: JD.ED 10:05 → JD.MS 12:13
PROVIDERS: ADMIT Internal Medicine; ATTEND Internal Medicine
DX: N39.0 Urinary tract infection, site not specified (principal); B96.20 Unspecified Escherichia coli [E. coli] as the cause of diseases classified elsewhere; E10.65 Type 1 diabetes mellitus with hyperglycemia; Z79.4 Long term (current) use of insulin; E86.0 Dehydration; E87.1 Hypo-osmolality and hyponatremia; E87.8 Other disorders of electrolyte and fluid balance, not elsewhere classified; F32.9 Major depressive disorder, single episode, unspecified; F41.9 Anxiety disorder, unspecified; I10 Essential (primary) hypertension; G47.00 Insomnia, unspecified; H54.7 Unspecified visual loss; B37.2 Candidiasis of skin and nail; Z98.84 Bariatric surgery status; E78.5 Hyperlipidemia, unspecified; G89.29 Other chronic pain; M25.50 Pain in unspecified joint; M79.1 Myalgia; Z91.14 Patient's other noncompliance with medication regimen; Z79.82 Long term (current) use of aspirin; Z88.7 Allergy status to serum and vaccine
CPT/HCPCS: 36415; 80048; 80053; 80061; 81001; 82009; 82962; 83036; 83735; 85025; 86140; 86308; 86677; 87040; 87081; 87086; 87088; 87186; 87430; 87804; 93005; 96361; 96365; 96375; 99222; 99232; 99285; 99285-25; A9270-GY; J0696; J1650; J1815-GY; J1817; J2060; J2405; J3475; J7030; J7040; J7060

== ENCOUNTER 2016-08-20 15:01 | Emergency (ER) | payer BC ==
[2016-08-20 15:18] VITALS: BP 161/125
[2016-08-20] MEDS ORDERED: HYDROmorphone 0.5 MG/0.5 ML Syringe IM ONE (15:51)
--- NOTE | 2016-08-20 16:00 | EDM.PDOC ---
ED HPI GENERAL MEDICAL PROBLEM - General Chief Complaint: Laceration Stated Complaint: FELL, HIT FACE ON BATH TUB Time Seen by Provider: 08/20/16 15:30 Source of Information: Reports: Patient History Limitations: Reports: No Limitations - History of Present Illness INITIAL COMMENTS - FREE TEXT/NARRATIVE: 51-year-old female presents for evaluation and treatment of an injury to the left cheek. Patient reports that she is currently moving. She states that she tripped on a box ans struck the left side her face in a cast iron bathtub. This occurred around 0900 today. She states that over the past few hours her left cheek has significantly become more swollen. She also reports a laceration to the inside of her mouth with a substantial amount of bleeding from the laceration. She states that she did not feel dizzy or lightheaded and the fall was caused by tripping. She did not hit her head, pass out or lose consciousness. No vision changes, or vomiting. Face is very tender to palpation. No bloody nose. No loose or missing teeth. Reports feeling dizzy and nauseated since falling but this is improving. Denies any neck pain. Patient's immunizations are up to date. Patient is a diabetic. Patient originally seen at the walk-in clinic and sent to us for further management. Left Face Pain Score (Numeric/FACES): 9 - Related Data Allergies Allergy/AdvReac Type Severity Reaction Status Date / Time Influenza Virus Vaccines Allergy Itching Verified 08/20/16 15:18 pneumococcal vaccine Allergy Redness Verified 08/20/16 15:18 Home Meds: Home Meds Cyanocobalamin (Vitamin B-12) [Vitamin B-12] 1,000 mcg PO DAILY 07/28/16 [ History] Hydrochlorothiazide 25 mg PO DAILY 07/28/16 [History] Insulin Aspart [NovoLOG] 100 unit SUBCUT ASDIRECTED PRN 07/28/16 [History] Insulin Glarg,Human.Rec.Analog [Lantus] 20 unit SUBCUT DAILY 07/28/16 [History] Iron 1 tab PO DAILY 07/28/16 [History] Lisinopril 40 mg PO DAILY 07/28/16 [History] Meloxicam 15 mg PO DAILY 07/28/16 [History] Multivitamin [Daily Multiple Vitamin] 1 tab PO DAILY 07/28/16 [History] [place]-3/DHA/Epa/Fish Oil [Fish Oil 1,000 mg Softgel] 2 each PO DAILY 07/28/16 [ History] Venlafaxine [Effexor XR] 37.5 mg PO DAILY 07/28/16 [History] traZODone HCl [Trazodone HCl] 50 mg PO BEDTIME PRN 07/28/16 [History] Acetaminophen [Tylenol] 650 mg PO Q4H PRN #0 tablet 07/31/16 [Rx] Aspirin 81 mg PO DAILY #30 tab.chew 07/31/16 [Rx] Amoxicillin/Potassium Clav [Augmentin 875-125 Tablet] 1 each PO BID #20 tablet 08/20/16 [Rx] LORazepam [Ativan] 0.5 mg PO TID PRN 08/20/16 [History] oxyCODONE HCl/Acetaminophen [Percocet 5-325 mg Tablet] 1 each PO Q6HR PRN #20 tablet 08/20/16 [Rx] Past Medical History HEENT History: Reports: Impaired Vision Other HEENT History: wear glasses Cardiovascular History: Reports: Hypertension Respiratory History: Reports: Asthma Gastrointestinal History: Reports: GERD, Pancreatitis Genitourinary History: Reports: UTI, Recurrent [employer] History: Reports: Fibroids, Other (See Below) Other OB/BYN History: hysterectomy with overies intact Neurological History: Reports: None Psychiatric History: Reports: Depression Endocrine/Metabolic History: Reports: Diabetes, Type I Other Endocrine/Metabolic History: recent weight gain Hematologic History: Reports: Iron Deficiency Dermatologic History: Reports: None - Infectious Disease History Infectious Disease History: Reports: Chicken Pox - Past Surgical History Cardiovascular Surgical History: Reports: None GI Surgical History: Reports: Appendectomy, Bariatric Procedure, Cholecystectomy Female Surgical History: Reports: Hysterectomy, Other (See Below) Neurological Surgical History: Reports: None Dermatological Surgical History: Reports: Other (See Below) Social & Family History - Family History Family Medical History: Noncontributory - Tobacco Use Smoking Status *Q: Never Smoker - Caffeine Use Caffeine Use: Reports: None - Recreational Drug Use Recreational Drug Use: No ED ROS GENERAL - Review of Systems Review Of Systems: See Below HEENT: Reports: Other (facial swelling left cheeck; approximately 4cm laceration to the left cheeck). Denies: Dental Pain, Nosebleed GI/Abdominal: Reports: Nausea (earlier now resvolving) Musculoskeletal: Denies: Neck Pain Skin: Reports: Wound (left inner cheeck) Neurological: Reports: Dizziness (earlier, now resolving). Denies: Headache, Syncope ED EXAM, SKIN/RASH Exam: See Below Exam Limited By: No Limitations General Appearance: Alert, WD/WN, No Apparent Distress Eye Exam: Bilateral Eye: EOMI, PERRL Ears: Normal External Exam, Normal Canal, Hearing Grossly Normal, Normal TMs Nose: Normal Inspection, No Blood Throat/Mouth: Normal Inspection, Normal Voice, No Airway Compromise, Other Head: Facial Swelling (softball sized swelling/hematoma to the left cheeck), Facial Tenderness (left inferior orbit, left zygomatic process), Sinus Tenderness (left maxillary sinus ) Neck: Normal Inspection, Supple, Non-Tender, Full Range of Motion Respiratory/Chest: No Respiratory Distress, Lungs Clear, Normal Breath Sounds Cardiovascular: Normal Peripheral Pulses, Regular Rate, Rhythm, No Murmur Neurological: Alert, Oriented, Normal Cognition, Normal Gait Psychiatric: Normal Affect, Normal Mood Skin: Warm, Dry, Ecchymosis (left cheeck) Location, Skin: Face (softball sized hematoma to the left cheeck; 4cm laceration to the left inner cheeck/mouth) Characteristics: Linear (linear 4cm laceration) Associated features: Tenderness Course - Vital Signs Last Recorded V/S: Last Vital Signs Temp 37.2 C 08/20/16 15:11 Pulse 112 H 08/20/16 15:11 Resp 18 08/20/16 15:11 BP 161/125 H 08/20/16 15:11 Pulse Ox 100 08/20/16 15:11 - Orders/Labs/Meds Meds: Medications Discontinued Medications Generic Name Dose Route Start Last Admin Trade Name Shashankq PRN Reason Stop Dose Admin Hydromorphone HCl 0.5 mg 08/20/16 15:51 08/20/16 16:14 Dilaudid IM 08/20/16 15:52 0.5 mg ONETIME ONE Administration - Radiology Interpretation Free Text/Narrative:: CT of the facial bones impression per DR. Black 1. Soft tissue swelling and soft tissue air within the left check as well as probable soft tissue hematoma. 2. No acute bony abnormality is appreciated on CT study of the facial bones. CT Results Date: 08/20/16 - Re-Assessments/Exams Free Text/Narrative Re-Assessment/Exam: 08/20/16 16:[address] results with the patient. I feel the laceration inside her mouth will heal well without sutures. At this time she should utilize medication for pain and ice. Will place her on antibiotics as the laceration is likely from her teeth and to prevent any infection. Will discharge home. Discharge instructions as documented. Departure - Departure Time of Disposition: 16:44 Disposition: Home, Self-Care 01 Condition: fair Clinical Impression: Hematoma - Discharge Information Prescriptions: oxyCODONE HCl/Acetaminophen [Percocet 5-325 mg Tablet] 1 each PO Q6HR PRN #20 tablet PRN Reason: Pain Amoxicillin/Potassium Clav [Augmentin 875-125 Tablet] 1 each PO BID #20 tablet Instructions: Hematoma, [id number] Referrals: Hema Negrete MD [Primary Care Provider] - Forms: ED Department Discharge Additional Instructions: You were given medication in the ER that can affect your ability to drive and operate machinery. No driving or operating machinery with in 12 hours of taking narcotic medication Take the Augmentin as prescribed. 1 tab PO bid x 10 days. Take with food. Recommend yogurt or a probiotic. Take percocoet 1 tab PO every 4-6 hours prn pain. No driving or operating machienry within 12 hours of taking percocet. Percocoet can be habit forming. Take as few of these as needed to control your pain. Followup with primary care provider on or Saturday this week for recheck. Rinse your mouth several times a day. Please return to the ER should your symptoms change or worsen.
--- NOTE | 2016-08-20 16:29 | CT ---
CT facial bones Technique: Multiple axial sections through the facial bones were obtained. Reconstructed coronal and sagittal images were reviewed. Findings: Diffuse soft tissue swelling is seen within the left cheek. Large amount of soft tissue air seen within the left cheek. Soft tissue density also noted within the soft tissue swelling presumably representing hematoma. Mastoid sinuses and middle ear cavities are clear. Mild nasal septal deviation is seen which is chronic. Paranasal sinuses are clear. No fracture is seen within the mandible. Zygomatic arches show no fracture. Surrounding bony structures around the sinuses appear intact. No acute nasal bone fracture is seen. No orbital wall fracture is seen. Impression: 1. Soft tissue swelling and soft tissue air within the left cheek as well as probable soft tissue hematoma. 2. No acute bony abnormality is appreciated on CT study of the facial bones. Diagnostic code #3
== END 2016-08-20 17:15 | disposition home or self-care (01) ==
LOC: JD.ED 15:01
DX: S01.412A Laceration without foreign body of left cheek and temporomandibular area, initial encounter (principal); S00.83XA Contusion of other part of head, initial encounter; I10 Essential (primary) hypertension; J45.909 Unspecified asthma, uncomplicated; K21.9 Gastro-esophageal reflux disease without esophagitis; E10.9 Type 1 diabetes mellitus without complications; Z88.8 Allergy status to other drugs, medicaments and biological substances; Z79.82 Long term (current) use of aspirin; Z79.899 Other long term (current) drug therapy; Z79.4 Long term (current) use of insulin; Z90.49 Acquired absence of other specified parts of digestive tract; Z90.710 Acquired absence of both cervix and uterus; W01.198A Fall on same level from slipping, tripping and stumbling with subsequent striking against other object, initial encounter
CPT/HCPCS: 70486; 96372; 99284; J1170; 99283

== ENCOUNTER 2017-01-10 17:36 | Inpatient (IN) | payer BC ==
--- NOTE | 2017-01-10 17:57 | EDM.PDOC ---
ED HPI GENERAL MEDICAL PROBLEM - General Chief Complaint: Neurological Problem Stated Complaint: Altered mental status Time Seen by Provider: 01/10/17 17:40 Source of Information: Reports: EMS, RN Notes Reviewed History Limitations: Reports: Altered Mental Status, Intoxication - History of Present Illness INITIAL COMMENTS - FREE TEXT/NARRATIVE: 51 year old female is brought to the ER today by [facility] due to altered mental status. Her daughter called EMS because she was unable to get ahold of her Mom all day today. The patient has a known history of alcohol abuse and diabetes. Blood sugar on scene was around 280. The patient was found on the floor with altered mental status and smells of ETOH. The patient is not able provide any additional information. During exam her speech is slurred and she appears acute intoxicated. I did find a pill in her lap during exam. Nursing staff did look it up and found that it is Lyrica. Family arrived shortly after patient's arrival and offered some additional information. The patient's daughter said that her brother who lives in [place] contacted her because he got a text from his Mom (Nkechi) stating "Please come, I have no one." The daughter tried to get a hold of Nkechi and was unable to so she went to her home and found her on the floor, surrounded by open pill bottles. There was "fluid" found on the patient's pillow described as schroeder in color. They are unsure if this is drool or vomit. The patient's is also present. When asked if they feel she intentionally overdosed they replied "absolutely." The patient has a history of depression with suicidal intent in the past. She drinks vodka daily. She has not been sober in over 5-6 years. When asked if she become shakey when she doesn't drink, the family replied "probably." The said he works quite a bit so he is unsure what Nkechi does throughout the day. The family did bring in her pill bottles and all pills from the floor. - Related Data Allergies Allergy/AdvReac Type Severity Reaction Status Date / Time Influenza Virus Vaccines Allergy Itching Verified 08/20/16 15:18 pneumococcal vaccine Allergy Redness Verified 08/20/16 15:18 Home Meds: Home Meds Cyanocobalamin (Vitamin B-12) [Vitamin B-12] 1,000 mcg PO DAILY 07/28/16 [ History] Hydrochlorothiazide 25 mg PO DAILY 07/28/16 [History] Insulin Aspart [NovoLOG] 100 unit SUBCUT ASDIRECTED PRN 07/28/16 [History] Insulin Glarg,Human.Rec.Analog [Lantus] 20 unit SUBCUT DAILY 07/28/16 [History] Iron 1 tab PO DAILY 07/28/16 [History] Lisinopril 40 mg PO DAILY 07/28/16 [History] Meloxicam 15 mg PO DAILY 07/28/16 [History] Multivitamin [Daily Multiple Vitamin] 1 tab PO DAILY 07/28/16 [History] [place]-3/DHA/Epa/Fish Oil [Fish Oil 1,000 mg Softgel] 2 each PO DAILY 07/28/16 [ History] Venlafaxine [Effexor XR] 37.5 mg PO DAILY 07/28/16 [History] traZODone HCl [Trazodone HCl] 50 mg PO BEDTIME PRN 07/28/16 [History] Acetaminophen [Tylenol] 650 mg PO Q4H PRN #0 tablet 07/31/16 [Rx] Aspirin 81 mg PO DAILY #30 tab.chew 07/31/16 [Rx] Amoxicillin/Potassium Clav [Augmentin 875-125 Tablet] 1 each PO BID #20 tablet 08/20/16 [Rx] LORazepam [Ativan] 0.5 mg PO TID PRN 08/20/16 [History] oxyCODONE HCl/Acetaminophen [Percocet 5-325 mg Tablet] 1 each PO Q6HR PRN #20 tablet 08/20/16 [Rx] Past Medical History HEENT History: Reports: Impaired Vision Other HEENT History: wear glasses Cardiovascular History: Reports: Hypertension Respiratory History: Reports: Asthma Gastrointestinal History: Reports: GERD, Pancreatitis Genitourinary History: Reports: UTI, Recurrent GORE SEAMER History: Reports: Fibroids, Other (See Below) Other OB/BYN History: hysterectomy with overies intact Neurological History: Reports: None Psychiatric History: Reports: Depression Endocrine/Metabolic History: Reports: Diabetes, Type I Other Endocrine/Metabolic History: recent weight gain Hematologic History: Reports: Iron Deficiency Dermatologic History: Reports: None - Infectious Disease History Infectious Disease History: Reports: Chicken Pox - Past Surgical History Cardiovascular Surgical History: Reports: None GI Surgical History: Reports: Appendectomy, Bariatric Procedure, Cholecystectomy Female Surgical History: Reports: Hysterectomy, Other (See Below) Neurological Surgical History: Reports: None Dermatological Surgical History: Reports: Other (See Below) Social & Family History - Family History Family Medical History: Noncontributory - Tobacco Use Smoking Status *Q: Never Smoker - Caffeine Use Caffeine Use: Reports: None - Recreational Drug Use Recreational Drug Use: No ED ROS GENERAL - Review of Systems Review Of Systems: ROS reveals no pertinent complaints other than HPI. (Patient unable to give any additional history) - Physical Exam Exam: See Below Exam Limited By: Altered Mental Status General Appearance: Lethargic, Other (altered mental status, slurred speech, unkept, smells of ETOH ) Eye Exam: Bilateral Eye: Other (Pupils are equal round and reactive. Pupils are mildly dilated. ) Head Exam: Atraumatic, Normocephalic Neck: Normal Inspection, Supple, Non-Tender, Full Range of Motion Respiratory/Chest: No Respiratory Distress, Lungs Clear, Normal Breath Sounds, No Accessory Muscle Use, Crackles (right base ), Other (oxygen saturation high 80s to low 90s on 5-6 L NC ) Cardiovascular: Normal Peripheral Pulses, No Edema, No Murmur, Tachycardia GI/Abdominal: Normal Bowel Sounds, Soft, Non-Tender, No Distention Neuro Exam (Abbreviated): Inattentive, Confused, Slow to Respond, Other ( lethargic. appears intoxicated. ) Extremities: Other (bruising to upper and lower extremities at various stagles of healing. ) Psychiatric: Flat Affect Skin Exam: Warm, Dry, Intact EKG INTERPRETATION EKG Date: 01/10/17 Time: 18:18 Rhythm: Other (Sinus tach) Rate (Beats/Min): 110 [place]: Normal P-Wave: Present QRS: Normal ST-T: Normal QT: Normal Course - Vital Signs Last Recorded V/S: Last Vital Signs Temp 98.0 F 01/10/17 17:40 Pulse 84 01/10/17 17:40 Resp 16 01/10/17 17:40 BP 92/61 01/10/17 17:40 Pulse Ox 89 L 01/10/17 17:40 - Orders/Labs/Meds Orders: Active Orders 24 hr Category Date Time Status EKG Documentation Completion [RC] ASDIRECTED Care 01/10/17 17:57 Active Peripheral IV Care [RC] . DIRECTED Care 01/10/17 17:50 Active CXR [Chest 1V Frontal] [CR] Stat Exams 01/10/17 17:49 Taken Cervical Spine wo Cont [CT] Stat Exams 01/10/17 17:51 Taken Head wo Cont [CT] Stat Exams 01/10/17 17:49 Taken ACETAMINOPHEN [CHEM] Stat Lab 01/10/17 18:30 Results COMPREHENSIVE METABOLIC PN,CMP [CHEM] Stat Lab 01/10/17 18:30 Results CREATINE KINASE,CK [CHEM] Stat Lab 01/10/17 18:30 Results ETHANOL BLOOD MEDICAL [CHEM] Stat Lab 01/10/17 18:30 Results LIPASE [CHEM] Stat Lab 01/10/17 18:30 Results Magnesium Sulfate/Water [Magnesium Sulfate 2 GM in Med 01/10/17 19:47 Active Water 50 ML] 2 gm Premix Bag 1 bag IV ONETIME Sodium Chloride 0.9% [Saline Flush] Med 01/10/17 17:48 Active 10 ml FLUSH ASDIRECTED PRN Peripheral IV Insertion Adult [OM.PC] Stat Oth 01/10/17 17:49 Ordered EKG 12 Lead [EK] Stat Ther 01/10/17 17:57 Ordered Medication Orders Magnesium Sulfate 2 gm/ Premix 50 mls @ 25 mls/hr IV ONETIME ONE Stop: 01/10/17 21:46 Sodium Chloride (Saline Flush) 10 ml FLUSH ASDIRECTED PRN PRN Reason: Keep Vein Open Last Admin: 01/10/17 18:22 Dose: 10 ml Labs: Laboratory Tests 01/10/17 01/10/17 01/10/17 Range/Units 17:49 18:10 18:10 WBC (3.98-10.04) K/mm3 RBC (3.98-5.22) M/mm3 Hgb (11.2-15.7) gm/L Hct (34.1-44.9) % MCV (79.4-94.8) fl MCH (25.6-32.2) pg MCHC (32.2-35.5) g/dl RDW Std Deviation (36.4-46.3) fL Plt Count (182-369) K/mm3 MPV (9.4-12.3) fl Neut % (Auto) (34.0-71.1) % Lymph % (Auto) (19.3-51.7) % [place] % (Auto) (4.7-12.5) % Eos % (Auto) (0.7-5.8) Baso % (Auto) (0.1-1.2) % Neut # (Auto) (1.56-6.13) K/mm3 Lymph # (Auto) (1.18-3.74) K/mm3 [place] # (Auto) (0.24-0.36) K/mm3 Eos # (Auto) (0.04-0.36) K/mm3 Baso # (Auto) (0.01-0.08) K/mm3 Manual Slide Review Sodium (136-145) mEq/L Potassium (3.5-5.1) mEq/L Chloride (98-107) mEq/L Carbon Dioxide (21-32) mEq/L Anion Gap (5-15) BUN (7-18) mg/dL Creatinine (0.55-1.02) mg/dL Est Cr Clr Drug Dosing mL/min Estimated GFR (MDRD) (>60) mL/min BUN/Creatinine Ratio (14-18) Glucose (74-106) mg/dL POC Glucose 253 H (70-105) mg/dL Serum Osmolality (280-300) mosm/kg Calcium (8.5-10.1) mg/dL Magnesium (1.8-2.4) mg/dl Total Bilirubin (0.2-1.0) mg/dL AST (15-37) U/L ALT (14-59) U/L Alkaline Phosphatase (46-116) U/L Total Protein (6.4-8.2) g/dl Albumin (3.4-5.0) g/dl Globulin gm/dL Albumin/Globulin Ratio (1-2) Lipase (73-393) U/L Urine Color Yellow (Yellow) Urine Appearance Cloudy H (Clear) Urine pH 5.5 (5.0-8.0) Ur Specific [place] 1.025 (1.005-1.030) Urine Protein 2+ H (Negative) Urine Glucose (UA) Negative (Negative) Urine Ketones Negative (Negative) Urine Occult Blood 2+ H (Negative) Urine Nitrite Negative (Negative) Urine Bilirubin Negative (Negative) Urine Urobilinogen 0.2 (0.2-1.0) Ur Leukocyte Esterase 1+ H (Negative) Urine RBC 5-10 H (0-5) /hpf Urine WBC 5-10 H (0-5) /hpf Ur Epithelial Cells 0-5 (0-5) /hpf Urine Bacteria Many H (FEW) /hpf Urine Mucus Few (FEW) /hpf Salicylates (2.8-20) mg/dL Urine Opiates Screen Negative (NEGATIVE) Ur Buprenorphine Scrn Negative (NEGATIVE) Ur Oxycodone Screen Negative (NEGATIVE) Urine Methadone Screen Negative (NEGATIVE) Ur Propoxyphene Screen Negative (NEGATIVE) Acetaminophen (10-30) ug/mL Ur Barbiturates Screen Negative (NEGATIVE) Ur Tricyclics Screen Negative (NEGATIVE) Ur Phencyclidine Scrn Negative (NEGATIVE) Ur Amphetamine Screen Negative (NEGATIVE) U Methamphetamines Scrn Negative (NEGATIVE) U Benzodiazepines Scrn Presumptive positive H (NEGATIVE) U Cocaine Metab Screen Negative (NEGATIVE) U Marijuana (THC) Screen Negative (NEGATIVE) Ethyl Alcohol (0.00) gm% Ketones (0.0-0.3) mM 01/10/17 01/10/17 01/10/17 Range/Units 18:30 18:30 18:30 WBC 7.74 (3.98-10.04) K/mm3 RBC 3.41 L (3.98-5.22) M/mm3 Hgb 12.6 (11.2-15.7) gm/L Hct 36.0 (34.1-44.9) % MCV 105.6 H (79.4-94.8) fl MCH 37.0 H (25.6-32.2) pg MCHC 35.0 (32.2-35.5) g/dl RDW Std Deviation 45.0 (36.4-46.3) fL Plt Count 109 L (182-369) K/mm3 MPV 9.5 (9.4-12.3) fl Neut % (Auto) 86.4 H (34.0-71.1) % Lymph % (Auto) 5.4 L (19.3-51.7) % [place] % (Auto) 7.8 (4.7-12.5) % Eos % (Auto) 0 L (0.7-5.8) Baso % (Auto) 0.1 (0.1-1.2) % Neut # (Auto) 6.69 H (1.56-6.13) K/mm3 Lymph # (Auto) 0.42 L (1.18-3.74) K/mm3 [place] # (Auto) 0.60 H (0.24-0.36) K/mm3 Eos # (Auto) 0.00 L (0.04-0.36) K/mm3 Baso # (Auto) 0.01 (0.01-0.08) K/mm3 Manual Slide Review Abnormal smear Sodium 135 L (136-145) mEq/L Potassium 5.2 H (3.5-5.1) mEq/L Chloride 99 (98-107) mEq/L Carbon Dioxide 20 L (21-32) mEq/L Anion Gap 21.2 H (5-15) BUN 42 H (7-18) mg/dL Creatinine 3.6 H (0.55-1.02) mg/dL Est Cr Clr Drug Dosing 15.78 mL/min Estimated GFR (MDRD) 13 (>60) mL/min BUN/Creatinine Ratio 11.7 L (14-18) Glucose 288 H (74-106) mg/dL POC Glucose (70-105) mg/dL Serum Osmolality (280-300) mosm/kg Calcium 7.9 L (8.5-10.1) mg/dL Magnesium (1.8-2.4) mg/dl Total Bilirubin 0.6 (0.2-1.0) mg/dL AST 498 H (15-37) U/L ALT 236 H (14-59) U/L Alkaline Phosphatase 124 H (46-116) U/L Total Protein 6.9 (6.4-8.2) g/dl Albumin 3.1 L (3.4-5.0) g/dl Globulin 3.8 gm/dL Albumin/Globulin Ratio 0.8 L (1-2) Lipase 66 L (73-393) U/L Urine Color (Yellow) Urine Appearance (Clear) Urine pH (5.0-8.0) Ur Specific [place] (1.005-1.030) Urine Protein (Negative) Urine Glucose (UA) (Negative) Urine Ketones (Negative) Urine Occult Blood (Negative) Urine Nitrite (Negative) Urine Bilirubin (Negative) Urine Urobilinogen (0.2-1.0) Ur Leukocyte Esterase (Negative) Urine RBC (0-5) /hpf Urine WBC (0-5) /hpf Ur Epithelial Cells (0-5) /hpf Urine Bacteria (FEW) /hpf Urine Mucus (FEW) /hpf Salicylates 1.4 L (2.8-20) mg/dL Urine Opiates Screen (NEGATIVE) Ur Buprenorphine Scrn (NEGATIVE) Ur Oxycodone Screen (NEGATIVE) Urine Methadone Screen (NEGATIVE) Ur Propoxyphene Screen (NEGATIVE) Acetaminophen 0 L (10-30) ug/mL Ur Barbiturates Screen (NEGATIVE) Ur Tricyclics Screen (NEGATIVE) Ur Phencyclidine Scrn (NEGATIVE) Ur Amphetamine Screen (NEGATIVE) U Methamphetamines Scrn (NEGATIVE) U Benzodiazepines Scrn (NEGATIVE) U Cocaine Metab Screen (NEGATIVE) U Marijuana (THC) Screen (NEGATIVE) Ethyl Alcohol 0.00 (0.00) gm% Ketones (0.0-0.3) mM 01/10/17 01/10/17 01/10/17 Range/Units 18:30 18:30 18:30 WBC (3.98-10.04) K/mm3 RBC (3.98-5.22) M/mm3 Hgb (11.2-15.7) gm/L Hct (34.1-44.9) % MCV (79.4-94.8) fl MCH (25.6-32.2) pg MCHC (32.2-35.5) g/dl RDW Std Deviation (36.4-46.3) fL Plt Count (182-369) K/mm3 MPV (9.4-12.3) fl Neut % (Auto) (34.0-71.1) % Lymph % (Auto) (19.3-51.7) % [place] % (Auto) (4.7-12.5) % Eos % (Auto) (0.7-5.8) Baso % (Auto) (0.1-1.2) % Neut # (Auto) (1.56-6.13) K/mm3 Lymph # (Auto) (1.18-3.74) K/mm3 [place] # (Auto) (0.24-0.36) K/mm3 Eos # (Auto) (0.04-0.36) K/mm3 Baso # (Auto) (0.01-0.08) K/mm3 Manual Slide Review Sodium (136-145) mEq/L Potassium (3.5-5.1) mEq/L Chloride (98-107) mEq/L Carbon Dioxide (21-32) mEq/L Anion Gap (5-15) BUN (7-18) mg/dL Creatinine (0.55-1.02) mg/dL Est Cr Clr Drug Dosing mL/min Estimated GFR (MDRD) (>60) mL/min BUN/Creatinine Ratio (14-18) Glucose (74-106) mg/dL POC Glucose (70-105) mg/dL Serum Osmolality 305 H (280-300) mosm/kg Calcium (8.5-10.1) mg/dL Magnesium 1.1 L (1.8-2.4) mg/dl Total Bilirubin (0.2-1.0) mg/dL AST (15-37) U/L ALT (14-59) U/L Alkaline Phosphatase (46-116) U/L Total Protein (6.4-8.2) g/dl Albumin (3.4-5.0) g/dl Globulin gm/dL Albumin/Globulin Ratio (1-2) Lipase (73-393) U/L Urine Color (Yellow) Urine Appearance (Clear) Urine pH (5.0-8.0) Ur Specific [place] (1.005-1.030) Urine Protein (Negative) Urine Glucose (UA) (Negative) Urine Ketones (Negative) Urine Occult Blood (Negative) Urine Nitrite (Negative) Urine Bilirubin (Negative) Urine Urobilinogen (0.2-1.0) Ur Leukocyte Esterase (Negative) Urine RBC (0-5) /hpf Urine WBC (0-5) /hpf Ur Epithelial Cells (0-5) /hpf Urine Bacteria (FEW) /hpf Urine Mucus (FEW) /hpf Salicylates (2.8-20) mg/dL Urine Opiates Screen (NEGATIVE) Ur Buprenorphine Scrn (NEGATIVE) Ur Oxycodone Screen (NEGATIVE) Urine Methadone Screen (NEGATIVE) Ur Propoxyphene Screen (NEGATIVE) Acetaminophen (10-30) ug/mL Ur Barbiturates Screen (NEGATIVE) Ur Tricyclics Screen (NEGATIVE) Ur Phencyclidine Scrn (NEGATIVE) Ur Amphetamine Screen (NEGATIVE) U Methamphetamines Scrn (NEGATIVE) U Benzodiazepines Scrn (NEGATIVE) U Cocaine Metab Screen (NEGATIVE) U Marijuana (THC) Screen (NEGATIVE) Ethyl Alcohol (0.00) gm% Ketones 1.23 (0.0-0.3) mM Meds: Medications Generic Name Dose Route Start Last Admin Trade Name Freq PRN Reason Stop Dose Admin Magnesium Sulfate 2 gm/ Premix 50 mls @ 25 mls/hr 01/10/17 19:47 IV 01/10/17 21:46 ONETIME ONE Sodium Chloride 10 ml 01/10/17 17:48 01/10/17 18:22 Saline Flush FLUSH 10 ml ASDIRECTED PRN Administration Keep Vein Open Discontinued Medications Generic Name Dose Route Start Last Admin Trade Name Freq PRN Reason Stop Dose Admin Sodium Chloride 1,000 mls @ 999 mls/hr 01/10/17 18:40 01/10/17 18:52 Normal Saline IV 01/10/17 19:40 999 mls/hr ONETIME ONE Administration Ceftriaxone Sodium 1 gm/ 100 mls @ 200 mls/hr 01/10/17 19:46 01/10/17 19:59 Sodium Chloride IV 01/10/17 20:15 200 mls/hr ONETIME ONE Administration - Re-Assessments/Exams Free Text/Narrative Re-Assessment/Exam: Nursing staff and I went through the pill bottles. Sertraline 50mg tabs. Filled 05/02/16 #30. 5 tabs in the bottle with two that have lost the coating HCTZ 25mg tabs. Filled 12/11/16 #30. 16 tabs in bottle Lyrica 75mg tabs. Filled 11/23/16 #60. 20 tabs in bottle Lisinopril 40mg tabs. Filled 12/11/16 #30. 9 tabs in bottle Trazadone 50mg tabs. Filled 12/24/16 #30. 1 tab in bottle Meloxicam 15mg tabs. Filled 11/26/16. #30. 1 tab in bottle Temazepam 30mg tabs. Filled 07/31/16 #30. 0 tabs in bottle Lorazepam 0.5mg tabs. Filled 07/31/16 #30. 0 tabs in bottle Venlafaxine 37.5mg tabs. Filled 11/23/16 #30. 0 tabs in bottle. I spoke to Greta at [place] poison control. Most concerning for overdose is the Venlafaxine due to risk for seizure and QT prolongation. Recommends treating with mag sulfate 2 grams if QT becomes prolonged. Also monitor for tachyarrhythmias. Otherwise recommend supportive treatment and at minimal over night admission. 01/10/17 19:[address]iscussed lab results with Dr. Salgado. WBC is normal. CMP reveals that the patient has an acute kidney injury as well as electrolyte abnormalities. Plan will be go given 2 grams Mag Sulfate for Mag of 1.1. Also, patient has a UTI. 1 gram Rocephin ordered. Chest x-ray reveals blunting of the right heart border. No clear consolidation or infiltrate. Otherwise unremarkable. UDS is positive for benzos. Otherwise negative. ETOH is 0. Salicylate and acetaminophen are normal. Head and c-spine CTs are negative for acute findings. Read by [facility]. I called and spoke to Hospitalist Dr. Franklin who has accepted care of patient for inpatient admission to ICU for altered mental status, overdose, and acute kidney injury. Departure - Departure Time of Disposition: 20:01 Disposition: Admitted As Inpatient 65 Condition: Serious Clinical Impression: Alcohol abuse Overdose Qualifiers: Encounter type: initial encounter Injury intent: undetermined intent Qualified Code(s): T50.904A - Poisoning by unspecified drugs, medicaments and biological substances, undetermined, initial encounter Altered mental status Qualifiers: Altered mental status type: unspecified Qualified Code(s): R41.82 - Altered mental status, unspecified - Discharge Information - My Orders Last 24 Hours: My Active Orders 01/10/17 17:48 Sodium Chloride 0.9% [Saline Flush] 10 ml FLUSH ASDIRECTED PRN 01/10/17 17:49 CXR [Chest 1V Frontal] [CR] Stat Head wo Cont [CT] Stat Peripheral IV Insertion Adult [OM.PC] Stat 01/10/17 17:50 Peripheral IV Care [RC] . DIRECTED 01/10/17 17:51 Cervical Spine wo Cont [CT] Stat 01/10/17 17:57 EKG Documentation Completion [RC] ASDIRECTED EKG 12 Lead [EK] Stat 01/10/17 18:30 ACETAMINOPHEN [CHEM] Stat COMPREHENSIVE METABOLIC PN,CMP [CHEM] Stat CREATINE KINASE,CK [CHEM] Stat ETHANOL BLOOD MEDICAL [CHEM] Stat LIPASE [CHEM] Stat 01/10/17 19:47 Magnesium Sulfate/Water [Magnesium Sulfate 2 GM in Water 50 ML] 2 gm Premix Bag 1 bag IV ONETIME - Assessment/Plan Last 24 Hours: My Active Orders 01/10/17 17:48 Sodium Chloride 0.9% [Saline Flush] 10 ml FLUSH ASDIRECTED PRN 01/10/17 17:49 CXR [Chest 1V Frontal] [CR] Stat Head wo Cont [CT] Stat Peripheral IV Insertion Adult [OM.PC] Stat 01/10/17 17:50 Peripheral IV Care [RC] . DIRECTED 01/10/17 17:51 Cervical Spine wo Cont [CT] Stat 01/10/17 17:57 EKG Documentation Completion [RC] ASDIRECTED EKG 12 Lead [EK] Stat 01/10/17 18:30 ACETAMINOPHEN [CHEM] Stat COMPREHENSIVE METABOLIC PN,CMP [CHEM] Stat CREATINE KINASE,CK [CHEM] Stat ETHANOL BLOOD MEDICAL [CHEM] Stat LIPASE [CHEM] Stat 01/10/17 19:47 Magnesium Sulfate/Water [Magnesium Sulfate 2 GM in Water 50 ML] 2 gm Premix Bag 1 bag IV ONETIME
[2017-01-10] MEDS: Sodium Chloride 0.9% 10 ML Syringe FLUSH PRN ×2 (18:22→22:16)
[2017-01-10] MEDS ORDERED: Sodium Chloride 0.9% 1,000 ML IV ONE ×2 (18:40→21:46)
[2017-01-10] MEDS ORDERED: cefTRIAXone 1 GM in Sodium Chloride 0.9% 100 ML IV ONE (19:46)
[2017-01-10] MEDS ORDERED: Magnesium Sulfate/Water 2 GM in Premix Bag 1 BAG IV ONE ×2 (19:47→22:14)
--- NOTE | 2017-01-10 21:06 | PCM.HP ---
H&P History of Present Illness - General Date of Service: 01/10/17 Admit Problem/Dx: Admission Diagnosis/Problem Admission Diagnosis/Problem Altered mental status Source of Information: Family, Provider, RN, RN Notes Reviewed, Significant Other History Limitations: Reports: Altered Mental Status - History of Present Illness Initial Comments - Free Text/Narative: Nkechi Pang is a 51 yo female pt. who was brought to our ED tonight via ambulance after being found in an altered mental status by family. Her daughter called EMS after she was unable to get ahold of her. Apparently the patient's son contacted the patient's daughter after he received a text from Nkechi stating "please come, I have no one." the daughter arrived at the patient' s house and Nkechi was found on the floor surrounded by open pill bottles. It is unknown how long she was down for. There was a fluid of some type found on the patient's pillow described as schroeder in color. They were unsure if this is drool or vomit. The patient's was also present in the ED. ED provider asked if they felt she was trying to overdose intentionally and they responded "absolutely." Patient has a history of depression and suicidal intent in the past. Family reports she drinks vodka daily. reports he works quite a bit and is unsure what the patient does throughout the day. Family reports she has not been sober in over 5-6 years and they believe she becomes shaky when she doesn't drink. The family did bring the pill bottles found near the patient. Blood sugar on scene was around 280. EMS crew and ED provider reported she smelled of EtOH. ED provider found a pill in her lap during her exam and this was found to be Lyrica. Pill bottles brought to ED and examined by ED staff were as follows: Sertraline 50mg tabs. Filled 05/02/16 #30. 5 tabs in the bottle with two that have lost the coating HCTZ 25mg tabs. Filled 12/11/16 #30. 16 tabs in bottle Lyrica 75mg tabs. Filled 11/23/16 #60. 20 tabs in bottle Lisinopril 40mg tabs. Filled 12/11/16 #30. 9 tabs in bottle Trazadone 50mg tabs. Filled 12/24/16 #30. 1 tab in bottle Meloxicam 15mg tabs. Filled 11/26/16. #30. 1 tab in bottle Temazepam 30mg tabs. Filled 07/31/16 #30. 0 tabs in bottle Lorazepam 0.5mg tabs. Filled 07/31/16 #30. 0 tabs in bottle Venlafaxine 37.5mg tabs. Filled 11/23/16 #30. 0 tabs in bottle. In ED patient was quite lethargic. Vital signs were: temp 98, pulse 84, respirations 16, BP 92/61, pulse ox 89% on room air. She was stared on O2. Labs were obtained. White count was normal at 7.74. Hemoglobin normal at 12.6. She was macrocytic at 105.6. Platelets were low at 109. Sodium was slightly low at 135. Potassium was slightly high at 5.2. Magnesium was very low at 1.1. Her anion gap was high at 21.2. BUN was high at 42. Creatinine was high at 3.16. Her EGFR was 13. Glucose was high at 288. Calcium was low at 7.9. AST was high at 498. PLT was high at 236. Alkaline phosphatase was high at 124. Albumin was low at 3.1. Lipase was low at 66. CRP was 1.9. Ethanol alcohol in the ED was negative. Urine drug screen was presumptive positive for benzodiazepines. All others were negative. Salicylate and acetaminophen are normal. UA was slightly suggestive of a UTI. Ketones were high at 1.23. [place] poison control was contacted by ED staff. They were mostly concerned with Venlafaxine causing seizure and QT prolongation. She was given 2 g of mag sulfate and 1 g Rocephin in ED. Chest x-ray revealed blunting of right heart border with no clear consolidation or infiltrate. Head and spine CTs, read by V rad, were negative for acute findings. Twelve-lead EKG obtained showed sinus tachycardia with no other ectopy. QT was normal. The patient was subsequently admitted to the ICU for altered mental status, overdose, and acute kidney injury. Once on the floor lab notified ED the patient 's CK returned [id number]. This is extremely high. Patient is a full code. She reportedly does not have a PCP. Left Leg Pain Score (Numeric/FACES): 7 (Patient unable to give definative number due to altered mental status. ) Bilateral Leg Pain Score (Numeric/FACES): 8 - Related Data Allergies/Adverse Reactions: Allergies Allergy/AdvReac Type Severity Reaction Status Date / Time Influenza Virus Vaccines Allergy Itching Verified 08/20/16 15:18 pneumococcal vaccine Allergy Redness Verified 08/20/16 15:18 Home Medications: Home Meds Cyanocobalamin (Vitamin B-12) [Vitamin B-12] 1,000 mcg PO DAILY 07/28/16 [ History] Hydrochlorothiazide 25 mg PO DAILY 07/28/16 [History] Insulin Aspart [NovoLOG] 100 unit SUBCUT ASDIRECTED PRN 07/28/16 [History] Insulin Glarg,Human.Rec.Analog [Lantus] 20 unit SUBCUT DAILY 07/28/16 [History] Iron 1 tab PO DAILY 07/28/16 [History] Lisinopril 40 mg PO DAILY 07/28/16 [History] Meloxicam 15 mg PO DAILY 07/28/16 [History] Multivitamin [Daily Multiple Vitamin] 1 tab PO DAILY 07/28/16 [History] [place]-3/DHA/Epa/Fish Oil [Fish Oil 1,000 mg Softgel] 2 each PO DAILY 07/28/16 [ History] Venlafaxine [Effexor XR] 37.5 mg PO DAILY 07/28/16 [History] traZODone HCl [Trazodone HCl] 50 mg PO BEDTIME PRN 07/28/16 [History] Acetaminophen [Tylenol] 650 mg PO Q4H PRN #0 tablet 07/31/16 [Rx] Aspirin 81 mg PO DAILY #30 tab.chew 07/31/16 [Rx] Amoxicillin/Potassium Clav [Augmentin 875-125 Tablet] 1 each PO BID #20 tablet 08/20/16 [Rx] LORazepam [Ativan] 0.5 mg PO TID PRN 08/20/16 [History] oxyCODONE HCl/Acetaminophen [Percocet 5-325 mg Tablet] 1 each PO Q6HR PRN #20 tablet 08/20/16 [Rx] Past Medical History HEENT History: Reports: Impaired Vision Other HEENT History: wear glasses Cardiovascular History: Reports: Hypertension Respiratory History: Reports: Asthma Gastrointestinal History: Reports: GERD, Pancreatitis Genitourinary History: Reports: UTI, Recurrent [employer]ER History: Reports: Fibroids, Other (See Below) Other OB/BYN History: hysterectomy with overies intact Musculoskeletal History: Reports: Other (See Below) Other Musculoskeletal History: pt takes lyrica for pain Neurological History: Reports: None Psychiatric History: Reports: Depression Endocrine/Metabolic History: Reports: Diabetes, Type I Other Endocrine/Metabolic History: recent weight gain Hematologic History: Reports: Iron Deficiency Other Oncologic History: colon polups Dermatologic History: Reports: None - Infectious Disease History Infectious Disease History: Reports: Chicken Pox - Past Surgical History Cardiovascular Surgical History: Reports: None GI Surgical History: Reports: Appendectomy, Bariatric Procedure, Cholecystectomy Female Surgical History: Reports: Hysterectomy, Other (See Below) Neurological Surgical History: Reports: None Dermatological Surgical History: Reports: Other (See Below) Social & Family History - Family History Family Medical History: Noncontributory - Tobacco Use Smoking Status *Q: Never Smoker Second Hand Smoke Exposure: No - Caffeine Use Caffeine Use: Reports: None Other Caffeine Use: unknown - Alcohol Use Days Per Week of Alcohol Use: 7 Number of Drinks Per Day: 3 Total Drinks Per Week: 21 Date of Last Drink: 01/09/17 Time of Last Drink: 21:00 - Recreational Drug Use Recreational Drug Use: No Recreational Drug Type: Reports: Other (see below) Other Recreational Drug Type: pt denies, unknown H&P Review of Systems - Review of Systems: Review Of Systems: Unable To Obtain Pulmonary: Denies: Shortness of Breath Cardiovascular: Denies: Chest Pain Gastrointestinal: Denies: Abdominal Pain Genitourinary: Denies: Dysuria Musculoskeletal: Reports: Leg Pain (patient rubs leg when asking about pain and points. She attempts to talk but I am unable to understand what she is saying. ) Review of Systems Comment:: Attempted ROS however pt. is very difficult to understand due to overdose. Exam - Exam Exam: See Below - Vital Signs Vital Signs: Last Vital Signs Temp 98.0 F 01/10/17 17:40 Pulse 105 H 01/10/17 20:35 Resp 18 01/10/17 20:35 BP 96/70 01/10/17 20:35 Pulse Ox 94 L 01/10/17 20:35 Weight: 176 lb - Exam Quality Assessment: Supplemental Oxygen, DVT Prophylaxis General: Alert, Cooperative, Mild Distress, Other (Responds to questions but speech is garbled and slurred. She is unkept.) HEENT: Conjunctiva Clear, Hearing Intact, Mucosa Moist & Haven, Nares Patent, Posterior Pharynx Clear, Pupils Equal, Pupils Reactive, Other (Pupils mildly dilated ) Neck: Supple, Trachea Midline. No: JVD Lungs: Normal Respiratory Effort, Crackles (most pronounced in lower quadrants ) Cardiovascular: Regular Rhythm, Tachycardia. No: Systolic Murmur, Diastolic Murmur GI/Abdominal Exam: Normal Bowel Sounds, Soft, Non-Tender, No Organomegaly, No Distention (Female) Exam: Deferred Rectal (Female) Exam: Deferred Back Exam: Normal Inspection, Full Range of Motion Extremities: No Pedal Edema, Normal Capillary Refill, Other (scattered bruising throughout extremities ). No: Non-Tender (light touch on left leg and patient yells. Appears to be tender throughout entire leg. Scattered bruising. Good pulse. No streaking, erythema, or increased warmth.) Peripheral Pulses: 3+: Radial (L), Radial (R), Posterior Tibial (L), Posterior Tibial (R), Dorsalis Pedis (L), Dorsalis Pedis (R) Skin: Warm, Dry, Intact, Ecchymosis (scattered and in various stages of healing ) Neurological: Cranial Nerves Intact (grossly ), Strength Equal Bilateral, Normal Tone, Sensation Intact. No: Normal Speech Neuro Extensive - Mental Status: Alert, Inattentive, Opens Eyes to Commands, Slow Response to Commands, Other (Difficult to examine due to garbled speech. She does appear to respond appropriatly when asked questions by pointing, etc. ) Neuro Extensive - Motor, Sensory, Reflexes: CN II-XII Intact (grossly ), Other ( Difficlut to examine due to patients altered state ). No: Tongue Deviation (L) , Tongue Deviation (R), Facial palsy (L), Facial Palsy (R), Facial Palsy w Forehead, Facial Palsy wo Forehead Psychiatric: Alert, Depressed, Hallucinations Physical Exam Comments:: patient examined while lying in bed. Exam is extremely difficult as patient does not follow directions and is unable to communicate with garbled speech. She does appear to respond appropriately by pointing when asked where she is having pain. She points to her left leg in a fight touch it she appears to be in distress. I explained to patient our plan and she appeared to understand. I asked patient if she was trying to kill herself tonight and she responds no and appears somewhat upset. She then attempted to tell me something but it was incomprehensible. - Patient Data Result Diagrams: 01/10/17 18:30 01/10/17 18:30 *Q Meaningful Use (ADM) - VTE *Q VTE Criteria *Q: - Stroke *Q Stroke Criteria *Q: - AMI *Q AMI Criteria *Q: - Problem List (1) Rhabdomyolysis SNOMED Code(s): 304057222 ICD Code: M62.82 - RHABDOMYOLYSIS Status: Acute Priority: High Current Visit: Yes Qualifiers: Rhabdomyolysis type: non-traumatic Qualified Code(s): M62.82 - Rhabdomyolysis (2) Altered mental status SNOMED Code(s): 295770682 ICD Code: R41.82 - ALTERED MENTAL STATUS, UNSPECIFIED Status: Acute Priority: High Current Visit: Yes Qualifiers: Altered mental status type: disorientation Qualified Code(s): R41.0 - Disorientation, unspecified (3) Alcohol abuse SNOMED Code(s): 38401365 ICD Code: F10.10 - ALCOHOL ABUSE, UNCOMPLICATED Status: Acute Priority: Medium Current Visit: Yes (4) Overdose SNOMED Code(s): 06489764 ICD Code: T50.901A - POISONING BY UNSP DRUG/MEDS/BIOL SUBST, ACCIDENTAL, INIT Status: Acute Priority: High Current Visit: Yes Qualifiers: Encounter type: initial encounter Injury intent: undetermined intent Qualified Code(s): T50.904A - Poisoning by unspecified drugs, medicaments and biological substances, undetermined, initial encounter (5) Urinary tract infection SNOMED Code(s): 66669641 ICD Code: N39.0 - URINARY TRACT INFECTION, SITE NOT SPECIFIED Status: Acute Priority: Medium Current Visit: Yes Qualifiers: Urinary tract infection type: acute cystitis (6) Hyperglycemia due to type 1 diabetes mellitus SNOMED Code(s): 767801392266216 ICD Code: E10.65 - TYPE 1 DIABETES MELLITUS WITH HYPERGLYCEMIA Status: Chronic Priority: Medium Current Visit: Yes (7) Hypomagnesemia SNOMED Code(s): 884704209 ICD Code: E83.42 - HYPOMAGNESEMIA Status: Acute Priority: High Current Visit: Yes Problem List Initiated/Reviewed/Updated: Yes Orders Last 24hrs: Active Orders 24 hr Category Date Time Status Patient Status [ADT] Routine ADT 01/10/17 20:33 Active Medication Orders Magnesium Sulfate 2 gm/ Premix 50 mls @ 25 mls/hr IV ONETIME ONE Stop: 01/10/17 21:46 Sodium Chloride (Saline Flush) 10 ml FLUSH ASDIRECTED PRN PRN Reason: Keep Vein Open Last Admin: 01/10/17 18:22 Dose: 10 ml Assessment/Plan Comment:: I/P: Acute: Altered mental status -Most likely 2/2 overdose of prescription medications -It is unknown how much or exactly what meds patient took -Review of medications prescribed is most concerning for risk of seizure and QT prolongation -Continuous cardiac monitoring -1:1 care -NPO -O2 as directed, monitor for respiratory depression -Unknown if suicide attempt -Hx/o depression and prior suicidal intent -UDS Positive for benzodiazepines -ETOH negative -Type I diabetic - Glucose in ED 288 -CT scan negative for acute abnormality -Repeat 12-lead EKG tomorrow AM -Follow-up EKG in AM -Aspiration/fall/seizure/suicide precautions as indicated Rhabdomyolysis -Unknown how long patient was lying on ground before being found -CK 37730 -Pt. complaining of leg pain -eGFR - 13 -Creatinine - 3.6 -BUN - 42 -Anion gap 21.2 -2nd IV established -2L fluid bolus now -Joseph cath for strict I&O -Avoid nephrotoxic drugs -Continue to monitor labs -Retroperitoneal US in AM UTI -UA mildly suggestive of UTI -Rocephin given in ED -Urine culture ordered Hx/o ETOH abuse -Family reports pt. drinks heavily daily -ETOH 0.00 in ED -Liver enzymes elevated -Concern over withdrawal symptoms -CIWAA protocol Q1hr initiated -PRN ativan ordered for seizures -Catapress PRN -Folic acid 1mg tomorrow -Thiamine 200mg IV now -Topamax 25 mg BID Concern over possible aspiration -Lower lobe crackles on exam -Pt. had apparently vomited on scene -Unknown how long patient was down -CXR reveals blunting of right heart border with no clear consolation or infiltrate - Repeat CXR in AM -WBC 7.74 -Pt. has new productive cough -Afebrile -Levaquin started Hypomagnesemia -Mag 1.1 in ED -Mag sulfate 2gm given in ED -Ordered 2nd Mag sulfate 2gm to follow ED dose -Pharmacy to monitor and replete Hyperglycemia -Type I diabetic -Glucose 288 in ED -Sliding scale insulin per protocol -A1C ordered in AM -D50 for hypoglycemia -Before meal and before bed glucose checks ordered Patient is high fall risk Chronic: HTN - PRN medications Asthma - PRN duoneb, RT assess and treat GERD Depression Iron deficiency Plan: CM/SW for discharge planning Dr. Gallardo consult Mason Mckeon consult Hold home medications for now Routine AM labs as ordered DVT/PE prophylaxis - MJ hose; SCDs and lovenox contraindicated in patients current medical state GI prophylaxis Other orders as indicated above Pt. is full code. This case was discussed with Dr. Franklin and he was intimately involved in patients care.
[2017-01-10] MEDS: Sodium Chloride 0.9% 1,000 ML IV SCH (21:30)
[2017-01-10] MEDS ORDERED: Sodium Chloride 0.9% 10 ML Syringe FLUSH PRN (21:45)
[2017-01-10] MEDS ORDERED: Sodium Chloride 0.9% 1,000 ML IV SCH (21:45)
[2017-01-10] MEDS ORDERED: hydrALAZINE 10 MG Tab PO PRN (21:53)
[2017-01-10] MEDS ORDERED: Thiamine 200 MG in Sodium Chloride 0.9% 100 ML IV ONE (21:54)
[2017-01-10] MEDS ORDERED: diphenhydrAMINE 50 MG/ML SDV IVPUSH ONE (21:56)
[2017-01-10] MEDS ORDERED: 50% Dextrose in Water 50 ML Syringe IVPUSH PRN (21:57)
[2017-01-10] MEDS ORDERED: cloNIDine 0.1 MG Tab PO PRN (22:06)
[2017-01-10] MEDS ORDERED: Famotidine 20 MG/2 ML SDV IVPUSH ONE (22:11)
[2017-01-10] MEDS ORDERED: Levofloxacin/Dextrose 5%-Water 250 MG in Premix Bag 1 BAG IV ONE (22:16)
[2017-01-10] MEDS: Insulin Aspart 100 Units/ML 3 ML Pen SUBCUT SCH (22:47)
[2017-01-11] MEDS: Insulin Aspart 100 Units/ML 3 ML Pen SUBCUT SCH ×3 (00:54→12:06)
[2017-01-11] MEDS: Sodium Chloride 0.9% 1,000 ML IV SCH ×4 (01:33→13:27)
[2017-01-11] MEDS: LORazepam 2 MG/ML MDV IVPUSH PRN ×5 (05:48→21:44)
--- NOTE | 2017-01-11 07:44 | CR ---
Chest: Portable view of the chest was obtained. Comparison: No prior chest x-ray. Mild increased density appears to be present within the right middle lobe and around the right perihilar region and within the right upper lung. Mild areas of bronchitis causing these findings is possible. Difficult to exclude mild area of pneumonia within the right middle lobe. Lungs otherwise are clear. Heart size is normal. Mediastinum is within normal limits. Bony structures are grossly intact. Impression: 1. Increased density within the right perihilar region, right upper lobe and right middle lobe. Areas of bronchitis are possible as well as possible right middle lobe pneumonia. 2. Other portions of the portable chest x-ray are unremarkable. Diagnostic code #3
--- NOTE | 2017-01-11 07:44 | CT ---
CT cervical spine Technique: Multiple axial sections were obtained from above C1 inferiorly to the bottom of T2. Reconstructed sagittal and coronal images were reviewed. Findings: Vertebral body heights and disc spaces are maintained. Minimal anterior endplate osteophytes are noted at C5-C6 and C6-C7. Visualized mastoid sinuses and middle ear cavities are clear. Posterior skull base is intact. Mild motion artifact is seen. Vertebral bodies and posterior arches appear intact. No fracture is identified. No bony central or bony neural foraminal stenosis is seen. No abnormal subluxation is seen on reconstructed sagittal images. Small air-fluid levels are seen within the sphenoid sinus. Patchy areas of increased density noted within the right upper lung with no prior chest CT imaging to correlate. Impression: 1. Air-fluid level within the sphenoid sinus. This represents either retained secretions or change from sinusitis. Please correlate with the patient's symptoms. 2. Patchy areas of increased density within the right upper lung. Uncertain without previous chest CT if this represents areas of scarring or other abnormality. 3. Minimal degenerative change. No acute cervical spine abnormality is identified. Diagnostic code #3 I agree with preliminary report issued by [facility] ([facility] report finalized on 01/10/17, 8:12 PM Central Time)
--- NOTE | 2017-01-11 07:44 | CT ---
Head CT Technique: Multiple axial sections through the brain were obtained. Intravenous contrast was not utilized. Comparison: No prior intracranial imaging. Findings: Ventricles along with basal cisterns and sulci over the convexities appear within normal limits for the patient's age. No abnormal parenchymal densities are seen. No evidence of intracranial hemorrhage. No midline shift or mass effect is seen. Bone window settings were reviewed which show mucosal thickening within the right maxillary sinus and ethmoid sinuses as well as sphenoid sinus showing an air-fluid level. No acute calvarial abnormality is seen. Impression: 1. Sinus findings which on head CT appear to represent changes of acute sinusitis. These findings are not seen on prior facial CT performed on 08/20/16. 2. No acute intracranial abnormality is identified. Diagnostic code #3 I agree with preliminary report issued by [facility] ([facility] report finalized on 01/10/17, 8:14 PM Central Time)
[2017-01-11] MEDS ORDERED: Folic Acid 1 MG Tab PO SCH (09:00)
[2017-01-11] MEDS ORDERED: Topiramate 25 MG Tab PO SCH (09:00)
[2017-01-11] MEDS ORDERED: Famotidine 20 MG Tab PO SCH (09:00)
--- NOTE | 2017-01-11 09:16 | US ---
Renal ultrasound: Multiple real-time images of the kidneys were obtained. Technologist's note: Suboptimal exam, patient extremely combative unresponsive to breathing and positioning instructions Kidneys show no hydronephrosis or discrete mass. Cortical thickness appears preserved. Resistivity indices within the right kidney appear within normal limits. Resistivity indices could not be obtained within the left kidney. Joseph catheter noted within the bladder. Measurements: Right kidney: Length 11.0 cm Left kidney length: 12.1 cm Impression: 1. Less than optimal study as noted above. Joseph catheter present within the bladder. 2. No abnormality is otherwise appreciated on renal ultrasound exam. Diagnostic code #2
--- NOTE | 2017-01-11 10:46 | CR ---
Chest: Two views of the chest were obtained. Comparison: Previous chest x-ray of 01/10/17. Poor inspiratory effort is seen as well as poor positioning. Within this limitation there is felt to be some atelectasis possibly due to aspiration within the right base. Lungs otherwise are grossly clear. Heart size and mediastinum are normal. Bony structures are grossly intact. Surgical clips are seen within the upper abdomen. Impression: 1. Increased density within the right lung base compatible with atelectasis possibly due to aspiration. 2. Nothing acute is otherwise appreciated. Diagnostic code #3
--- NOTE | 2017-01-11 14:03 | PCM.PN ---
- General Info Date of Service: 01/11/17 Admission Dx/Problem (Free Text): Admission Diagnosis/Problem Admission Diagnosis/Problem Altered mental status Subjective Update: Patient seen and examined bedside with the nurse. Still lethargic / obtunded and unresponsive to verbal and tactile stimuli. Does not follow commands. Family at bedside and was unanimous that patient was not making much progress. She is said to have a waxing and waning level of consciousness. Still on IVF hydration with 0.9% Normal saline. Noted to have labored breathing which was noisy. Patient undergoing frequent suctioning. Functional Status: Reports: Pain Controlled. Denies: Tolerating Diet, New Symptoms Pain Score: 0 - Review of Systems General: Reports: Other (obtunded) HEENT: Reports: Other (unable to determine) Pulmonary: Reports: Other (unable to determine) Cardiovascular: Reports: No Symptoms Gastrointestinal: Reports: No Symptoms Genitourinary: Reports: No Symptoms Musculoskeletal: Reports: No Symptoms Skin: Reports: No Symptoms Neurological: Reports: No Symptoms Psychiatric: Reports: No Symptoms Systems Review Comment:: Unable to determine as patient is unresponsive to tactile and verbal stimuli - Patient Data Vitals - Most Recent: Last Vital Signs Temp 100.5 F 01/11/17 12:00 Pulse 105 H 01/11/17 04:00 Resp 18 01/11/17 12:00 BP 117/78 01/11/17 12:00 Pulse Ox 94 L 01/11/17 12:00 Weight - Most Recent: 84.368 kg I&O - Last 24 Hours: Intake & Output 01/10/17 01/11/17 01/11/17 22:59 06:59 14:59 Intake Total 4273 Output Total 20 355 433 Balance -20 3918 -433 Imaging Impressions - Last 24 Hours: Chest X-ray 01/11/17: Increasing right lung base density compatible with atelectasis possibly due to aspiration otherwise clear. Lab Results Last 24 Hours: Laboratory Results - last 24 hr 01/10/17 01/11/17 01/11/17 Range/Units 22:36 00:47 01:40 WBC (3.98-10.04) K/mm3 RBC (3.98-5.22) M/mm3 Hgb (11.2-15.7) gm/L Hct (34.1-44.9) % MCV (79.4-94.8) fl MCH (25.6-32.2) pg MCHC (32.2-35.5) g/dl RDW Std Deviation (36.4-46.3) fL Plt Count (182-369) K/mm3 MPV (9.4-12.3) fl Neut % (Auto) (34.0-71.1) % Lymph % (Auto) (19.3-51.7) % [place] % (Auto) (4.7-12.5) % Eos % (Auto) (0.7-5.8) Baso % (Auto) (0.1-1.2) % Neut # (Auto) (1.56-6.13) K/mm3 Lymph # (Auto) (1.18-3.74) K/mm3 [place] # (Auto) (0.24-0.36) K/mm3 Eos # (Auto) (0.04-0.36) K/mm3 Baso # (Auto) (0.01-0.08) K/mm3 Manual Slide Review Puncture Site ABG pH (7.35-7.45) ABG pCO2 (35.0-45.0) mmHg ABG pO2 (80.0-100.0) mmHg ABG HCO3 (22.0-26.0) meq/L ABG O2 Saturation (96.0-97.0) % ABG Base Excess (-2-2.0) A-a Gradient mmHg O2 Delivery Device Oxygen Flow Rate FiO2 (21.00-100.00) % Sodium 139 (136-145) mEq/L Potassium 4.5 (3.5-5.1) mEq/L Chloride 107 (98-107) mEq/L Carbon Dioxide 19 L (21-32) mEq/L Anion Gap 17.5 H (5-15) BUN 42 H (7-18) mg/dL Creatinine 3.3 H (0.55-1.02) mg/dL Est Cr Clr Drug Dosing 20.84 mL/min Estimated GFR (MDRD) 15 (>60) mL/min BUN/Creatinine Ratio 12.7 L (14-18) Glucose 198 H (74-106) mg/dL POC Glucose 229 H 194 H (70-105) mg/dL Hemoglobin A1c (4.50-6.20) % Calcium 6.7 L (8.5-10.1) mg/dL Magnesium (1.8-2.4) mg/dl Total Bilirubin 0.3 (0.2-1.0) mg/dL AST 575 H (15-37) U/L ALT 229 H (14-59) U/L Alkaline Phosphatase 96 (46-116) U/L Creatine Kinase 87094 H (26-192) U/L Total Protein 5.9 L (6.4-8.2) g/dl Albumin 2.5 L (3.4-5.0) g/dl Globulin 3.4 gm/dL Albumin/Globulin Ratio 0.7 L (1-2) 01/11/17 01/11/17 01/11/17 Range/Units 05:00 05:40 05:40 WBC 5.31 (3.98-10.04) K/mm3 RBC 2.86 L (3.98-5.22) M/mm3 Hgb 10.5 L (11.2-15.7) gm/L Hct 30.9 L (34.1-44.9) % MCV 108.0 H (79.4-94.8) fl MCH 36.7 H (25.6-32.2) pg MCHC 34.0 (32.2-35.5) g/dl RDW Std Deviation 46.4 H (36.4-46.3) fL Plt Count 79 L (182-369) K/mm3 MPV 10.1 (9.4-12.3) fl Neut % (Auto) 83.4 H (34.0-71.1) % Lymph % (Auto) 10.0 L (19.3-51.7) % [place] % (Auto) 4.9 (4.7-12.5) % Eos % (Auto) 0.2 L (0.7-5.8) Baso % (Auto) 0.2 (0.1-1.2) % Neut # (Auto) 4.43 (1.56-6.13) K/mm3 Lymph # (Auto) 0.53 L (1.18-3.74) K/mm3 [place] # (Auto) 0.26 (0.24-0.36) K/mm3 Eos # (Auto) 0.01 L (0.04-0.36) K/mm3 Baso # (Auto) 0.01 (0.01-0.08) K/mm3 Manual Slide Review Abnormal smear Puncture Site Rt radial ABG pH 7.25 L (7.35-7.45) ABG pCO2 38.4 (35.0-45.0) mmHg ABG pO2 67.0 L (80.0-100.0) mmHg ABG HCO3 16.3 L (22.0-26.0) meq/L ABG O2 Saturation 93.5 L (96.0-97.0) % ABG Base Excess -9.7 L (-2-2.0) A-a Gradient 269 mmHg O2 Delivery Device Simple mask Oxygen Flow Rate 10.0 FiO2 60.00 (21.00-100.00) % Sodium 142 (136-145) mEq/L Potassium 4.6 (3.5-5.1) mEq/L Chloride 110 H (98-107) mEq/L Carbon Dioxide 20 L (21-32) mEq/L Anion Gap 16.6 H (5-15) BUN 47 H (7-18) mg/dL Creatinine 3.1 H (0.55-1.02) mg/dL Est Cr Clr Drug Dosing 22.19 mL/min Estimated GFR (MDRD) 16 (>60) mL/min BUN/Creatinine Ratio 15.2 (14-18) Glucose 182 H (74-106) mg/dL POC Glucose (70-105) mg/dL Hemoglobin A1c (4.50-6.20) % Calcium 6.6 L (8.5-10.1) mg/dL Magnesium 2.4 (1.8-2.4) mg/dl Total Bilirubin (0.2-1.0) mg/dL AST (15-37) U/L ALT (14-59) U/L Alkaline Phosphatase (46-116) U/L Creatine Kinase 58124 H (26-192) U/L Total Protein (6.4-8.2) g/dl Albumin (3.4-5.0) g/dl Globulin gm/dL Albumin/Globulin Ratio (1-2) 01/11/17 01/11/17 01/11/17 Range/Units 05:40 06:24 11:34 WBC (3.98-10.04) K/mm3 RBC (3.98-5.22) M/mm3 Hgb (11.2-15.7) gm/L Hct (34.1-44.9) % MCV (79.4-94.8) fl MCH (25.6-32.2) pg MCHC (32.2-35.5) g/dl RDW Std Deviation (36.4-46.3) fL Plt Count (182-369) K/mm3 MPV (9.4-12.3) fl Neut % (Auto) (34.0-71.1) % Lymph % (Auto) (19.3-51.7) % [place] % (Auto) (4.7-12.5) % Eos % (Auto) (0.7-5.8) Baso % (Auto) (0.1-1.2) % Neut # (Auto) (1.56-6.13) K/mm3 Lymph # (Auto) (1.18-3.74) K/mm3 [place] # (Auto) (0.24-0.36) K/mm3 Eos # (Auto) (0.04-0.36) K/mm3 Baso # (Auto) (0.01-0.08) K/mm3 Manual Slide Review Puncture Site ABG pH (7.35-7.45) ABG pCO2 (35.0-45.0) mmHg ABG pO2 (80.0-100.0) mmHg ABG HCO3 (22.0-26.0) meq/L ABG O2 Saturation (96.0-97.0) % ABG Base Excess (-2-2.0) A-a Gradient mmHg O2 Delivery Device Oxygen Flow Rate FiO2 (21.00-100.00) % Sodium (136-145) mEq/L Potassium (3.5-5.1) mEq/L Chloride (98-107) mEq/L Carbon Dioxide (21-32) mEq/L Anion Gap (5-15) BUN (7-18) mg/dL Creatinine (0.55-1.02) mg/dL Est Cr Clr Drug Dosing mL/min Estimated GFR (MDRD) (>60) mL/min BUN/Creatinine Ratio (14-18) Glucose (74-106) mg/dL POC Glucose 180 H 142 H (70-105) mg/dL Hemoglobin A1c 7.60 H (4.50-6.20) % Calcium (8.5-10.1) mg/dL Magnesium (1.8-2.4) mg/dl Total Bilirubin (0.2-1.0) mg/dL AST (15-37) U/L ALT (14-59) U/L Alkaline Phosphatase (46-116) U/L Creatine Kinase (26-192) U/L Total Protein (6.4-8.2) g/dl Albumin (3.4-5.0) g/dl Globulin gm/dL Albumin/Globulin Ratio (1-2) Med Orders - Current: Current Medications Clonidine HCl (Catapres) 0.1 mg PO Q4H PRN PRN Reason: Agitation Dextrose/Water (Dextrose 50% In Water) 50 ml IVPUSH ASDIRECTED PRN PRN Reason: hypoglycemia Famotidine (Pepcid) 20 mg PO DAILY [facility] Last Admin: 01/11/17 10:31 Dose: Not Given Folic Acid (Folic Acid) 1 mg PO DAILY [facility] Last Admin: 01/11/17 10:31 Dose: Not Given Hydralazine HCl (Apresoline) 20 mg PO Q6H PRN PRN Reason: Hypertension Sodium Chloride (Normal Saline) 1,000 mls @ 250 mls/hr IV ASDIRECTED [facility] Last Admin: 01/11/17 13:27 Dose: 250 mls/hr Insulin Aspart (Novolog) 0 unit SUBCUT Q6HR [facility] PRN Reason: Protocol Last Admin: 01/11/17 12:06 Dose: Not Given Lorazepam (Ativan) 1 - 3 mg IVPUSH Q4H PRN; Protocol PRN Reason: withdrawal Last Admin: 01/11/17 08:55 Dose: 2 mg Lorazepam (Ativan) 2 mg IVPUSH Q4H PRN PRN Reason: Seizures Magnesium Sulfate (Pharmacy To Dose - Magnesium Replacement) 1 dose .XX ASDIRECTED [facility] Metoprolol Tartrate (Lopressor) 5 mg IVPUSH Q4H PRN PRN Reason: Tachycardia Potassium Chloride (Pharmacy To Dose - Potassium Replacement) 1 dose .XX ASDIRECTED [facility] Sodium Chloride (Saline Flush) 10 ml FLUSH ASDIRECTED PRN PRN Reason: Keep Vein Open Last Admin: 01/10/17 22:16 Dose: 10 ml Sodium Chloride (Saline Flush) 10 ml FLUSH ASDIRECTED PRN PRN Reason: Keep Vein Open Discontinued Medications Diphenhydramine HCl (Benadryl) 50 mg IVPUSH ONETIME ONE Stop: 01/10/17 21:57 Last Admin: 01/10/17 22:28 Dose: 50 mg Famotidine (Pepcid) 20 mg IVPUSH ONETIME ONE Stop: 01/10/17 22:12 Last Admin: 01/10/17 22:28 Dose: 20 mg Sodium Chloride (Normal Saline) 1,000 mls @ 999 mls/hr IV ONETIME ONE Stop: 01/10/17 19:40 Last Admin: 01/10/17 18:52 Dose: 999 mls/hr Ceftriaxone Sodium 1 gm/ (Sodium Chloride) 100 mls @ 200 mls/hr IV ONETIME ONE Stop: 01/10/17 20:15 Last Admin: 01/10/17 19:59 Dose: 200 mls/hr Magnesium Sulfate 2 gm/ Premix 50 mls @ 25 mls/hr IV ONETIME ONE Stop: 01/10/17 21:46 Last Admin: 01/10/17 21:08 Dose: 25 mls/hr Sodium Chloride (Normal Saline) 1,000 mls @ 999 mls/hr IV ASDIRECTED [facility] Last Admin: 01/10/17 22:19 Dose: 999 mls/hr Sodium Chloride (Normal Saline) 1,000 mls @ 999 mls/hr IV ONETIME ONE Stop: 01/10/17 22:46 Last Admin: 01/10/17 22:18 Dose: 999 mls/hr Thiamine HCl 200 mg/ Sodium (Chloride) 102 mls @ 204 mls/hr IV ONETIME ONE Stop: 01/10/17 21:55 Last Admin: 01/10/17 22:39 Dose: 204 mls/hr Magnesium Sulfate 2 gm/ Premix 50 mls @ 25 mls/hr IV ONETIME ONE Stop: 01/11/17 00:13 Last Admin: 01/10/17 23:31 Dose: 25 mls/hr Levofloxacin/Dextrose 250 mg/ (Premix) 50 mls @ 50 mls/hr IV ONETIME ONE Stop: 01/10/17 23:15 Last Admin: 01/11/17 00:28 Dose: 50 mls/hr Topiramate (Topamax) 25 mg PO BID [facility] Last Admin: 01/11/17 12:19 Dose: Not Given - Exam Quality Assessment: Supplemental Oxygen, Urine Catheter, DVT Prophylaxis General: No Acute Distress, Obtunded, Other (Restless). No: Alert, Oriented, Cooperative HEENT: Pupils Equal, Pupils Reactive. No: Scleral Icterus Neck: Supple, Trachea Midline, No JVD Lungs: Clear to Auscultation, Other (Noisy breathing) Cardiovascular: Regular Rate, Regular Rhythm, No Murmurs GI/Abdominal Exam: Normal Bowel Sounds, Soft (Female) Exam: Deferred Back Exam: Normal Inspection Extremities: Normal Inspection, No Pedal Edema, Normal Capillary Refill Peripheral Pulses: 2+: Carotid (L), Carotid (R), Brachial (L), Brachial (R), Radial (L), Radial (R), Femoral (L), Femoral (R), Popliteal (L), Popliteal (R), Posterior Tibial (L), Posterior Tibial (R), Dorsalis Pedis (L), Dorsalis Pedis ( R) Skin: Warm, Dry, Intact Neurological: Other (Obtunded) Psy/Mental Status: Other (Obtunded). No: Alert - Problem List & Annotations (1) Anemia SNOMED Code(s): 384261005 Code(s): D64.9 - ANEMIA, UNSPECIFIED Status: Acute Current Visit: Yes Qualifiers: Anemia type: unspecified type Qualified Code(s): D64.9 - Anemia, unspecified Annotation/Comment:: Possibly dilutional (2) Thrombocytopenia SNOMED Code(s): 680030264 Code(s): D69.6 - THROMBOCYTOPENIA, UNSPECIFIED Status: Chronic Current Visit: Yes (3) Metabolic acidosis with normal anion gap and failure of bicarbonate regeneration SNOMED Code(s): 84690470 Code(s): E87.2 - ACIDOSIS Status: Acute Current Visit: Yes (4) Alcohol abuse SNOMED Code(s): 84099139 Code(s): F10.10 - ALCOHOL ABUSE, UNCOMPLICATED Status: Acute Priority: Medium Current Visit: Yes (5) Altered mental status SNOMED Code(s): 016982695 Code(s): R41.82 - ALTERED MENTAL STATUS, UNSPECIFIED Status: Acute Priority: High Current Visit: Yes Qualifiers: Altered mental status type: somnolence Qualified Code(s): R40.0 - Somnolence (6) Overdose SNOMED Code(s): 12469410 Code(s): T50.901A - POISONING BY UNSP DRUG/MEDS/BIOL SUBST, ACCIDENTAL, INIT Status: Acute Priority: High Current Visit: Yes Qualifiers: Encounter type: initial encounter Injury intent: undetermined intent Qualified Code(s): T50.904A - Poisoning by unspecified drugs, medicaments and biological substances, undetermined, initial encounter (7) Rhabdomyolysis SNOMED Code(s): 251778982 Code(s): M62.82 - RHABDOMYOLYSIS Status: Acute Priority: High Current Visit: Yes Qualifiers: Rhabdomyolysis type: non-traumatic Qualified Code(s): M62.82 - Rhabdomyolysis - Problem List Review Problem List Initiated/Reviewed/Updated: Yes - Plan Plan:: I/P: Acute: Altered mental status -Most likely 2/2 overdose of prescription medications -It is unknown how much or exactly what meds patient took -Review of medications prescribed is most concerning for risk of seizure and QT prolongation -Continuous cardiac monitoring -1:1 care -NPO -O2 as directed, monitor for respiratory depression -Unknown if suicide attempt -Hx/o depression and prior suicidal intent -UDS Positive for benzodiazepines -ETOH negative -Type I diabetic - Glucose in ED 288 -CT scan negative for acute abnormality -Repeat 12-lead EKG tomorrow AM -Follow-up EKG in AM -Aspiration/fall/seizure/suicide precautions as indicated Rhabdomyolysis -Unknown how long patient was lying on ground before being found -CK [address]31 -Pt. complaining of leg pain -eGFR - 13 -Creatinine - 3.6 -BUN - 42 -Anion gap 21.2 -2nd IV established -2L fluid bolus now -Joseph cath for strict I&O -Avoid nephrotoxic drugs -Continue to monitor labs -Retroperitoneal US in AM UTI -UA mildly suggestive of UTI -Rocephin given in ED -Urine culture ordered Hx/o ETOH abuse -Family reports pt. drinks heavily daily -ETOH 0.00 in ED -Liver enzymes elevated -Concern over withdrawal symptoms -CIWAA protocol Q1hr initiated -PRN ativan ordered for seizures -Catapress PRN -Folic acid 1mg tomorrow -Thiamine 200mg IV now -Topamax 25 mg BID Right lung atelectasis possibly due to aspiration -Lower lobe crackles on exam -Pt. had apparently vomited on scene -Unknown how long patient was down -CXR reveals blunting of right heart border with no clear consolation or infiltrate -WBC 7.74 -Pt. has new productive cough -Afebrile -Levaquin started Hypomagnesemia -Mag 1.1 in ED -Mag sulfate 2gm given in ED -Ordered 2nd Mag sulfate 2gm to follow ED dose -Pharmacy to monitor and replete Hyperglycemia -Type I diabetic -Start Insulin Glargin at 10 units at bedtime -D50 for hypoglycemia -Glucose checks every 6hrs Patient is high fall risk Chronic: HTN - PRN medications Asthma - PRN duoneb, RT assess and treat GERD Depression Iron deficiency Thrombocytopenia Plan: CM/SW for discharge planning Dr. Gallardo consult Mason Mckeon consult Hold home medications for now Routine AM labs CPK levels daily DVT/PE prophylaxis - MJ hose; SCDs and lovenox contraindicated in patients current medical state GI prophylaxis Other orders as indicated above Pt. is full code.
[2017-01-11] MEDS: Dextrose 5%-0.9% NaCl 1,000 ML IV SCH (18:02)
[2017-01-11] MEDS: Pantoprazole 40 MG Vial IVPUSH SCH (18:02)
[2017-01-11] MEDS: Insulin Detemir 100 Units/ML 3 ML Pen SUBCUT SCH (20:03)
[2017-01-12] MEDS: Dextrose 5%-0.9% NaCl 1,000 ML IV SCH ×2 (00:43→07:24)
[2017-01-12] MEDS: LORazepam 2 MG/ML MDV IVPUSH PRN ×9 (02:42→22:51)
[2017-01-12] MEDS: Metoprolol Tartrate 5 MG/5 ML SDV IVPUSH PRN ×2 (04:07→18:27)
[2017-01-12] MEDS: Pantoprazole 40 MG Vial IVPUSH SCH (08:08)
[2017-01-12] MEDS: Insulin Aspart 100 Units/ML 3 ML Pen SUBCUT SCH ×4 (10:07→21:38)
--- NOTE | 2017-01-12 12:53 | PCM.PN ---
- General Info Date of Service: 01/12/17 Admission Dx/Problem (Free Text): Admission Diagnosis/Problem Admission Diagnosis/Problem Altered mental status Subjective Update: Patient seen and examined bedside with the nurse. Daughter noted at bedside. Patient appears much improved today as she is able to respond to her name and makes attempts to speak. Functional Status: Denies: New Symptoms - Review of Systems Systems Review Comment:: Unable to assess as patient is still obtunded. - Patient Data Vitals - Most Recent: Last Vital Signs Temp 100.1 F 01/12/17 12:00 Pulse 111 H 01/12/17 04:07 Resp 16 01/12/17 12:00 BP 151/83 H 01/12/17 12:00 Pulse Ox 96 01/12/17 12:00 Weight - Most Recent: 85.91 kg I&O - Last 24 Hours: Intake & Output 01/11/17 01/12/17 01/12/17 22:59 06:59 14:59 Intake Total 3165 1669 Output Total 2130 625 400 Balance 1035 1044 -400 Lab Results Last 24 Hours: Laboratory Results - last 24 hr 01/11/17 01/11/17 01/12/17 Range/Units 17:21 20:01 03:08 WBC (3.98-10.04) K/mm3 RBC (3.98-5.22) M/mm3 Hgb (11.2-15.7) gm/L Hct (34.1-44.9) % MCV (79.4-94.8) fl MCH (25.6-32.2) pg MCHC (32.2-35.5) g/dl RDW Std Deviation (36.4-46.3) fL Plt Count (182-369) K/mm3 MPV (9.4-12.3) fl Neut % (Auto) (34.0-71.1) % Lymph % (Auto) (19.3-51.7) % [place] % (Auto) (4.7-12.5) % Eos % (Auto) (0.7-5.8) Baso % (Auto) (0.1-1.2) % Neut # (Auto) (1.56-6.13) K/mm3 Lymph # (Auto) (1.18-3.74) K/mm3 [place] # (Auto) (0.24-0.36) K/mm3 Eos # (Auto) (0.04-0.36) K/mm3 Baso # (Auto) (0.01-0.08) K/mm3 Manual Slide Review Sodium (136-145) mEq/L Potassium (3.5-5.1) mEq/L Chloride (98-107) mEq/L Carbon Dioxide (21-32) mEq/L Anion Gap (5-15) BUN (7-18) mg/dL Creatinine (0.55-1.02) mg/dL Est Cr Clr Drug Dosing mL/min Estimated GFR (MDRD) (>60) mL/min BUN/Creatinine Ratio (14-18) Glucose (74-106) mg/dL POC Glucose 136 H 197 H 228 H (70-105) mg/dL Calcium (8.5-10.1) mg/dL Magnesium (1.8-2.4) mg/dl 01/12/17 01/12/17 01/12/17 Range/Units 05:40 05:40 07:56 WBC 5.03 (3.98-10.04) K/mm3 RBC 2.86 L (3.98-5.22) M/mm3 Hgb 10.3 L (11.2-15.7) gm/L Hct 31.1 L (34.1-44.9) % MCV 108.7 H (79.4-94.8) fl MCH 36.0 H (25.6-32.2) pg MCHC 33.1 (32.2-35.5) g/dl RDW Std Deviation 47.0 H (36.4-46.3) fL Plt Count 77 L (182-369) K/mm3 MPV 10.5 (9.4-12.3) fl Neut % (Auto) 76.7 H (34.0-71.1) % Lymph % (Auto) 14.9 L (19.3-51.7) % [place] % (Auto) 7.4 (4.7-12.5) % Eos % (Auto) 0.4 L (0.7-5.8) Baso % (Auto) 0.2 (0.1-1.2) % Neut # (Auto) 3.86 (1.56-6.13) K/mm3 Lymph # (Auto) 0.75 L (1.18-3.74) K/mm3 [place] # (Auto) 0.37 H (0.24-0.36) K/mm3 Eos # (Auto) 0.02 L (0.04-0.36) K/mm3 Baso # (Auto) 0.01 (0.01-0.08) K/mm3 Manual Slide Review Abnormal smear Sodium 145 (136-145) mEq/L Potassium 4.0 (3.5-5.1) mEq/L Chloride 113 H (98-107) mEq/L Carbon Dioxide 19 L (21-32) mEq/L Anion Gap 17.0 H (5-15) BUN 30 H (7-18) mg/dL Creatinine 1.5 H (0.55-1.02) mg/dL Est Cr Clr Drug Dosing 45.85 mL/min Estimated GFR (MDRD) 36 (>60) mL/min BUN/Creatinine Ratio 20.0 H (14-18) Glucose 227 H (74-106) mg/dL POC Glucose 231 H (70-105) mg/dL Calcium 6.7 L (8.5-10.1) mg/dL Magnesium 1.7 L (1.8-2.4) mg/dl 01/12/17 Range/Units 10:04 WBC (3.98-10.04) K/mm3 RBC (3.98-5.22) M/mm3 Hgb (11.2-15.7) gm/L Hct (34.1-44.9) % MCV (79.4-94.8) fl MCH (25.6-32.2) pg MCHC (32.2-35.5) g/dl RDW Std Deviation (36.4-46.3) fL Plt Count (182-369) K/mm3 MPV (9.4-12.3) fl Neut % (Auto) (34.0-71.1) % Lymph % (Auto) (19.3-51.7) % [place] % (Auto) (4.7-12.5) % Eos % (Auto) (0.7-5.8) Baso % (Auto) (0.1-1.2) % Neut # (Auto) (1.56-6.13) K/mm3 Lymph # (Auto) (1.18-3.74) K/mm3 [place] # (Auto) (0.24-0.36) K/mm3 Eos # (Auto) (0.04-0.36) K/mm3 Baso # (Auto) (0.01-0.08) K/mm3 Manual Slide Review Sodium (136-145) mEq/L Potassium (3.5-5.1) mEq/L Chloride (98-107) mEq/L Carbon Dioxide (21-32) mEq/L Anion Gap (5-15) BUN (7-18) mg/dL Creatinine (0.55-1.02) mg/dL Est Cr Clr Drug Dosing mL/min Estimated GFR (MDRD) (>60) mL/min BUN/Creatinine Ratio (14-18) Glucose (74-106) mg/dL POC Glucose 262 H (70-105) mg/dL Calcium (8.5-10.1) mg/dL Magnesium (1.8-2.4) mg/dl Med Orders - Current: Current Medications Dextrose/Water (Dextrose 50% In Water) 50 ml IVPUSH ASDIRECTED PRN PRN Reason: hypoglycemia Hydralazine HCl (Apresoline) 10 mg IVPUSH Q2H PRN PRN Reason: Hypertension Dextrose/Sodium Chloride (Dextrose 5%-Normal Saline) 1,000 mls @ 150 mls/hr IV ASDIRECTED [facility] Last Admin: 01/12/17 07:24 Dose: 150 mls/hr Insulin Aspart (Novolog) 0 unit SUBCUT QIDACANDBED [facility] PRN Reason: Protocol Last Admin: 01/12/17 11:21 Dose: Not Given Insulin Detemir (Levemir) 10 unit SUBCUT BEDTIME [facility] Last Admin: 01/11/17 20:03 Dose: 10 units Lorazepam (Ativan) 2 mg IVPUSH Q4H PRN PRN Reason: Seizures Lorazepam (Ativan) 1 - 3 mg IVPUSH ASDIRECTED PRN; Protocol PRN Reason: withdrawal Last Admin: 01/12/17 09:58 Dose: 1 mg Magnesium Sulfate (Pharmacy To Dose - Magnesium Replacement) 1 dose .XX ASDIRECTED PRN PRN Reason: RX to Dose Metoprolol Tartrate (Lopressor) 5 mg IVPUSH Q4H PRN PRN Reason: Tachycardia Last Admin: 01/12/17 04:07 Dose: 5 mg Pantoprazole Sodium (Protonix Iv) 40 mg IVPUSH DAILY [facility] Last Admin: 01/12/17 08:08 Dose: 40 mg Potassium Chloride (Pharmacy To Dose - Potassium Replacement) 1 dose .XX ASDIRECTED [facility] Sodium Chloride (Saline Flush) 10 ml FLUSH ASDIRECTED PRN PRN Reason: Keep Vein Open Last Admin: 01/10/17 22:16 Dose: 10 ml Sodium Chloride (Saline Flush) 10 ml FLUSH ASDIRECTED PRN PRN Reason: Keep Vein Open Discontinued Medications Clonidine HCl (Catapres) 0.1 mg PO Q4H PRN PRN Reason: Agitation Diphenhydramine HCl (Benadryl) 50 mg IVPUSH ONETIME ONE Stop: 01/10/17 21:57 Last Admin: 01/10/17 22:28 Dose: 50 mg Famotidine (Pepcid) 20 mg IVPUSH ONETIME ONE Stop: 01/10/17 22:12 Last Admin: 01/10/17 22:28 Dose: 20 mg Famotidine (Pepcid) 20 mg PO DAILY [facility] Last Admin: 01/11/17 10:31 Dose: Not Given Folic Acid (Folic Acid) 1 mg PO DAILY [facility] Last Admin: 01/11/17 10:31 Dose: Not Given Hydralazine HCl (Apresoline) 20 mg PO Q6H PRN PRN Reason: Hypertension Sodium Chloride (Normal Saline) 1,000 mls @ 999 mls/hr IV ONETIME ONE Stop: 01/10/17 19:40 Last Admin: 01/10/17 18:52 Dose: 999 mls/hr Ceftriaxone Sodium 1 gm/ (Sodium Chloride) 100 mls @ 200 mls/hr IV ONETIME ONE Stop: 01/10/17 20:15 Last Admin: 01/10/17 19:59 Dose: 200 mls/hr Magnesium Sulfate 2 gm/ Premix 50 mls @ 25 mls/hr IV ONETIME ONE Stop: 01/10/17 21:46 Last Admin: 01/10/17 21:08 Dose: 25 mls/hr Sodium Chloride (Normal Saline) 1,000 mls @ 250 mls/hr IV ASDIRECTED [facility] Last Admin: 01/11/17 13:27 Dose: 250 mls/hr Sodium Chloride (Normal Saline) 1,000 mls @ 999 mls/hr IV ASDIRECTED [facility] Last Admin: 01/10/17 22:19 Dose: 999 mls/hr Sodium Chloride (Normal Saline) 1,000 mls @ 999 mls/hr IV ONETIME ONE Stop: 01/10/17 22:46 Last Admin: 01/10/17 22:18 Dose: 999 mls/hr Thiamine HCl 200 mg/ Sodium (Chloride) 102 mls @ 204 mls/hr IV ONETIME ONE Stop: 01/10/17 21:55 Last Admin: 01/10/17 22:39 Dose: 204 mls/hr Magnesium Sulfate 2 gm/ Premix 50 mls @ 25 mls/hr IV ONETIME ONE Stop: 01/11/17 00:13 Last Admin: 01/10/17 23:31 Dose: 25 mls/hr Levofloxacin/Dextrose 250 mg/ (Premix) 50 mls @ 50 mls/hr IV ONETIME ONE Stop: 01/10/17 23:15 Last Admin: 01/11/17 00:28 Dose: 50 mls/hr Magnesium Sulfate/Dextrose 1 (gm/ Premix) 100 mls @ 100 mls/hr IV Q1H [facility] Stop: 01/12/17 10:59 Last Admin: 01/12/17 10:41 Dose: 100 mls/hr Insulin Aspart (Novolog) 0 unit SUBCUT Q6HR [facility] PRN Reason: Protocol Last Admin: 01/11/17 12:06 Dose: Not Given Lorazepam (Ativan) 1 - 3 mg IVPUSH Q4H PRN; Protocol PRN Reason: withdrawal Last Admin: 01/11/17 21:44 Dose: 1 mg Magnesium Sulfate (Pharmacy To Dose - Magnesium Replacement) 1 dose .XX ASDIRECTED [facility] Topiramate (Topamax) 25 mg PO BID [facility] Last Admin: 01/11/17 12:19 Dose: Not Given - Exam Quality Assessment: Supplemental Oxygen, Urine Catheter, DVT Prophylaxis General: Obtunded. No: Alert, Oriented, Cooperative HEENT: Pupils Equal Neck: Supple Lungs: Clear to Auscultation, Normal Respiratory Effort Cardiovascular: Regular Rate, Regular Rhythm GI/Abdominal Exam: Normal Bowel Sounds, Soft, Non-Tender, No Organomegaly, No Distention, No Abnormal Bruit, No Mass, Pelvis Stable (Female) Exam: Deferred Back Exam: Normal Inspection Extremities: Normal Inspection, No Pedal Edema Peripheral Pulses: 2+: Carotid (L), Carotid (R), Brachial (L), Brachial (R), Radial (L), Radial (R), Femoral (L), Femoral (R), Popliteal (L), Popliteal (R), Posterior Tibial (L), Posterior Tibial (R), Dorsalis Pedis (L), Dorsalis Pedis ( R) Skin: Warm, Dry, Intact Neurological: No New Focal Deficit Psy/Mental Status: Other (Obtunded). No: Alert - Problem List & Annotations (1) Anemia SNOMED Code(s): 633230967 Code(s): D64.9 - ANEMIA, UNSPECIFIED Status: Acute Current Visit: Yes Qualifiers: Anemia type: unspecified type Qualified Code(s): D64.9 - Anemia, unspecified Annotation/Comment:: Possibly dilutional (2) Thrombocytopenia SNOMED Code(s): 763085369 Code(s): D69.6 - THROMBOCYTOPENIA, UNSPECIFIED Status: Chronic Current Visit: Yes (3) Metabolic acidosis with normal anion gap and failure of bicarbonate regeneration SNOMED Code(s): 69915437 Code(s): E87.2 - ACIDOSIS Status: Acute Current Visit: Yes (4) Alcohol abuse SNOMED Code(s): 94708978 Code(s): F10.10 - ALCOHOL ABUSE, UNCOMPLICATED Status: Acute Priority: Medium Current Visit: Yes (5) Altered mental status SNOMED Code(s): 807632793 Code(s): R41.82 - ALTERED MENTAL STATUS, UNSPECIFIED Status: Acute Priority: High Current Visit: Yes Qualifiers: Altered mental status type: somnolence Qualified Code(s): R40.0 - Somnolence (6) Overdose SNOMED Code(s): 86364773 Code(s): T50.901A - POISONING BY UNSP DRUG/MEDS/BIOL SUBST, ACCIDENTAL, INIT Status: Acute Priority: High Current Visit: Yes Qualifiers: Encounter type: initial encounter Injury intent: undetermined intent Qualified Code(s): T50.904A - Poisoning by unspecified drugs, medicaments and biological substances, undetermined, initial encounter (7) Rhabdomyolysis SNOMED Code(s): 675806470 Code(s): M62.82 - RHABDOMYOLYSIS Status: Acute Priority: High Current Visit: Yes Qualifiers: Rhabdomyolysis type: non-traumatic Qualified Code(s): M62.82 - Rhabdomyolysis - Problem List Review Problem List Initiated/Reviewed/Updated: Yes - My Orders Last 24 Hours: My Active Orders 01/11/17 17:32 Blood Glucose Check, Bedside [RC] Q6H 01/11/17 17:45 Dextrose 5%-0.9% NaCl [Dextrose 5%-Normal Saline] 1,000 ml IV ASDIRECTED Pantoprazole [ProTONIX IV] 40 mg IVPUSH DAILY 01/11/17 21:00 Insulin Detemir [Levemir] 10 unit SUBCUT BEDTIME 01/12/17 09:45 Insulin Aspart [NovoLOG] See Protocol SUBCUT QIDACANDBED 01/12/17 12:41 CREATINE KINASE,CK [CHEM] Stat 01/12/17 12:43 hydrALAZINE [Apresoline] 10 mg IVPUSH Q2H PRN - Plan Plan:: I/P: Acute: Altered mental status most likely 2/2 overdose of prescription medications -Continuous cardiac monitoring -1:1 care -NPO -Continue IV fluid hydration with D5 0.45% normal saline -Aspiration/fall/seizure/suicide precautions as indicated Rhabdomyolysis -Recheck CPK level today. -Continue IV fluid hydration UTI -UA mildly suggestive of UTI -Rocephin given in ED -Urine culture ordered Hx/o ETOH abuse -Family reports pt. drinks heavily daily -ETOH 0.00 in ED -Liver enzymes elevated -Concern over withdrawal symptoms -CIWAA protocol Q1hr initiated -PRN ativan ordered for seizures -Catapress PRN -Folic acid 1mg tomorrow -Thiamine 200mg IV now -Topamax 25 mg BID Right lung atelectasis possibly due to aspiration -Lower lobe crackles on exam -Pt. had apparently vomited on scene -Unknown how long patient was down -CXR reveals blunting of right heart border with no clear consolation or infiltrate -WBC 7.74 -Pt. has new productive cough -Afebrile -Levaquin started Hypomagnesemia -Pharmacy to monitor and replete Hyperglycemia -Type I diabetic -Start Insulin Glargin at 10 units at bedtime -D50 for hypoglycemia -Glucose checks every 6hrs Patient is high fall risk Chronic: HTN - PRN medications Asthma - PRN duoneb, RT assess and treat GERD Depression Iron deficiency Thrombocytopenia Plan: CM/SW for discharge planning Dr. Gallardo consult Mason Mckeon consult Hold home medications for now Routine AM labs CPK levels daily DVT/PE prophylaxis - MJ hose; SCDs and lovenox contraindicated in patients current medical state GI prophylaxis Other orders as indicated above Pt. is full code.
[2017-01-12] MEDS: hydrALAZINE 20 MG/ML SDV IVPUSH PRN ×2 (14:13→16:13)
[2017-01-12] MEDS: cefTRIAXone 1 GM in Sodium Chloride 0.9% 100 ML IV SCH (14:35)
[2017-01-12] MEDS: Dextrose 5%-0.45% NaCl 1,000 ML IV SCH ×2 (15:03→22:54)
[2017-01-12] MEDS: Insulin Detemir 100 Units/ML 3 ML Pen SUBCUT SCH (21:28)
[2017-01-12] MEDS: Sodium Chloride 0.9% 10 ML Syringe FLUSH PRN (22:52)
[2017-01-13] MEDS: hydrALAZINE 20 MG/ML SDV IVPUSH PRN ×2 (00:04→03:15)
[2017-01-13] MEDS: Insulin Aspart 100 Units/ML 3 ML Pen SUBCUT SCH ×5 (00:05→21:49)
[2017-01-13] MEDS: LORazepam 2 MG/ML MDV IVPUSH PRN ×12 (00:21→21:54)
[2017-01-13] MEDS: Metoprolol Tartrate 5 MG/5 ML SDV IVPUSH PRN ×3 (01:17→08:46)
[2017-01-13] MEDS: Dextrose 5%-0.45% NaCl 1,000 ML IV SCH (06:45)
[2017-01-13] MEDS: Pantoprazole 40 MG Vial IVPUSH SCH (08:01)
[2017-01-13] MEDS ORDERED: Magnesium Sulfate/Water 50 ML ONE (08:42)
[2017-01-13] MEDS ORDERED: Magnesium Sulfate/Water 2 GM in Premix Bag 1 BAG IV ONE (08:42)
[2017-01-13] MEDS ORDERED: Albuterol/Ipratropium 3.0-0.5 MG/3 ML Neb Soln ONE (08:52)
[2017-01-13] MEDS: Albuterol/Ipratropium 3.0-0.5 MG/3 ML Neb Soln NEB SCH ×5 (09:11→23:35)
--- NOTE | 2017-01-13 10:10 | PCM.PN ---
- General Info Date of Service: 01/13/17 Admission Dx/Problem (Free Text): Admission Diagnosis/Problem Admission Diagnosis/Problem Altered mental status Subjective Update: Patient seen and examined bedside with the nurse this morning. She is noted to be very restless and combative at times and has had to be held that. She is still on Ativan according to CIWA scale and vital signs are noted to be unstable. She appears hypoxic when she started struggling but once settled her oxygen saturation improves. Chest x-ray which was done as well as ABG did not reveal any obvious abnormalities. She is still on IV fluid hydration and repeat CPK level appears to be elevated at 11,000. Functional Status: Reports: Other (Patient is still sedated/obtunded and restless) - Review of Systems Systems Review Comment:: Unable to obtain as patient is still obtunded - Patient Data Vitals - Most Recent: Last Vital Signs Temp 99.0 F 01/13/17 08:00 Pulse 125 H 01/13/17 08:46 Resp 22 H 01/13/17 08:00 BP 156/91 H 01/13/17 08:46 Pulse Ox 96 01/13/17 09:18 Weight - Most Recent: 88.314 kg I&O - Last 24 Hours: Intake & Output 01/12/17 01/13/17 01/13/17 22:59 06:59 14:59 Intake Total 1882 1640 Output Total 837 785 300 Balance 1045 855 -300 Lab Results Last 24 Hours: Laboratory Results - last 24 hr 01/12/17 01/12/17 01/12/17 Range/Units 05:40 14:38 16:50 WBC (3.98-10.04) K/mm3 RBC (3.98-5.22) M/mm3 Hgb (11.2-15.7) gm/L Hct (34.1-44.9) % MCV (79.4-94.8) fl MCH (25.6-32.2) pg MCHC (32.2-35.5) g/dl RDW Std Deviation (36.4-46.3) fL Plt Count (182-369) K/mm3 MPV (9.4-12.3) fl Neut % (Auto) (34.0-71.1) % Lymph % (Auto) (19.3-51.7) % Dodge % (Auto) (4.7-12.5) % Eos % (Auto) (0.7-5.8) Baso % (Auto) (0.1-1.2) % Neut # (Auto) (1.56-6.13) K/mm3 Lymph # (Auto) (1.18-3.74) K/mm3 Dodge # (Auto) (0.24-0.36) K/mm3 Eos # (Auto) (0.04-0.36) K/mm3 Baso # (Auto) (0.01-0.08) K/mm3 Manual Slide Review Sodium (136-145) mEq/L Potassium (3.5-5.1) mEq/L Chloride (98-107) mEq/L Carbon Dioxide (21-32) mEq/L Anion Gap (5-15) BUN (7-18) mg/dL Creatinine (0.55-1.02) mg/dL Est Cr Clr Drug Dosing mL/min Estimated GFR (MDRD) (>60) mL/min BUN/Creatinine Ratio (14-18) Glucose (74-106) mg/dL POC Glucose 282 H 317 H (70-105) mg/dL Calcium (8.5-10.1) mg/dL Magnesium (1.8-2.4) mg/dl Creatine Kinase 04884 H (26-192) U/L 01/12/17 01/13/17 01/13/17 Range/Units 21:33 03:42 04:55 WBC 7.11 (3.98-10.04) K/mm3 RBC 2.68 L (3.98-5.22) M/mm3 Hgb 9.7 L (11.2-15.7) gm/L Hct 29.2 L (34.1-44.9) % MCV 109.0 H (79.4-94.8) fl MCH 36.2 H (25.6-32.2) pg MCHC 33.2 (32.2-35.5) g/dl RDW Std Deviation 48.4 H (36.4-46.3) fL Plt Count 68 L (182-369) K/mm3 MPV 10.2 (9.4-12.3) fl Neut % (Auto) 85.5 H (34.0-71.1) % Lymph % (Auto) 8.0 L (19.3-51.7) % Dodge % (Auto) 5.8 (4.7-12.5) % Eos % (Auto) 0.3 L (0.7-5.8) Baso % (Auto) 0.1 (0.1-1.2) % Neut # (Auto) 6.08 (1.56-6.13) K/mm3 Lymph # (Auto) 0.57 L (1.18-3.74) K/mm3 Dodge # (Auto) 0.41 H (0.24-0.36) K/mm3 Eos # (Auto) 0.02 L (0.04-0.36) K/mm3 Baso # (Auto) 0.01 (0.01-0.08) K/mm3 Manual Slide Review Abnormal smear Sodium (136-145) mEq/L Potassium (3.5-5.1) mEq/L Chloride (98-107) mEq/L Carbon Dioxide (21-32) mEq/L Anion Gap (5-15) BUN (7-18) mg/dL Creatinine (0.55-1.02) mg/dL Est Cr Clr Drug Dosing mL/min Estimated GFR (MDRD) (>60) mL/min BUN/Creatinine Ratio (14-18) Glucose (74-106) mg/dL POC Glucose 299 H 358 H (70-105) mg/dL Calcium (8.5-10.1) mg/dL Magnesium (1.8-2.4) mg/dl Creatine Kinase (26-192) U/L 01/13/17 Range/Units 04:55 WBC (3.98-10.04) K/mm3 RBC (3.98-5.22) M/mm3 Hgb (11.2-15.7) gm/L Hct (34.1-44.9) % MCV (79.4-94.8) fl MCH (25.6-32.2) pg MCHC (32.2-35.5) g/dl RDW Std Deviation (36.4-46.3) fL Plt Count (182-369) K/mm3 MPV (9.4-12.3) fl Neut % (Auto) (34.0-71.1) % Lymph % (Auto) (19.3-51.7) % Dodge % (Auto) (4.7-12.5) % Eos % (Auto) (0.7-5.8) Baso % (Auto) (0.1-1.2) % Neut # (Auto) (1.56-6.13) K/mm3 Lymph # (Auto) (1.18-3.74) K/mm3 Dodge # (Auto) (0.24-0.36) K/mm3 Eos # (Auto) (0.04-0.36) K/mm3 Baso # (Auto) (0.01-0.08) K/mm3 Manual Slide Review Sodium 144 (136-145) mEq/L Potassium 3.6 (3.5-5.1) mEq/L Chloride 114 H (98-107) mEq/L Carbon Dioxide 20 L (21-32) mEq/L Anion Gap 13.6 (5-15) BUN 16 (7-18) mg/dL Creatinine 1.1 H (0.55-1.02) mg/dL Est Cr Clr Drug Dosing 62.52 mL/min Estimated GFR (MDRD) 52 (>60) mL/min BUN/Creatinine Ratio 14.5 (14-18) Glucose 352 H (74-106) mg/dL POC Glucose (70-105) mg/dL Calcium 7.0 L (8.5-10.1) mg/dL Magnesium 1.6 L (1.8-2.4) mg/dl Creatine Kinase (26-192) U/L Med Orders - Current: Current Medications Albuterol/Ipratropium (Duoneb 3.0-0.5 Mg/3 Ml) 3 ml NEB Q4HRRT [facility] Last Admin: 01/13/17 09:14 Dose: Not Given Dextrose/Water (Dextrose 50% In Water) 50 ml IVPUSH ASDIRECTED PRN PRN Reason: hypoglycemia Hydralazine HCl (Apresoline) 10 mg IVPUSH Q2H PRN PRN Reason: Hypertension Last Admin: 01/13/17 03:15 Dose: 10 mg Ceftriaxone Sodium 1 gm/ (Sodium Chloride) 100 mls @ 200 mls/hr IV Q24H [facility] Last Admin: 01/12/17 14:35 Dose: 200 mls/hr Dextrose/Sodium Chloride (Dextrose 5%-1/2 Ns) 1,000 mls @ 125 mls/hr IV ASDIRECTED [facility] Last Admin: 01/13/17 06:45 Dose: 125 mls/hr Potassium Chloride 10 meq/ (Premix) 100 mls @ 100 mls/hr IV Q1H [facility] Stop: 01/13/17 14:59 Magnesium Sulfate 2 gm/ Premix 50 mls @ 25 mls/hr IV ONETIME ONE Stop: 01/13/17 10:41 Last Admin: 01/13/17 08:46 Dose: 25 mls/hr Insulin Aspart (Novolog) 0 unit SUBCUT Q6H [facility] PRN Reason: Protocol Last Admin: 01/13/17 04:13 Dose: 5 units Insulin Detemir (Levemir) 10 unit SUBCUT BID [facility] Lorazepam (Ativan) 2 mg IVPUSH Q4H PRN PRN Reason: Seizures Lorazepam (Ativan) 1 - 3 mg IVPUSH ASDIRECTED PRN; Protocol PRN Reason: withdrawal Last Admin: 01/13/17 08:08 Dose: 1 mg Magnesium Sulfate (Pharmacy To Dose - Magnesium Replacement) 1 dose .XX ASDIRECTED PRN PRN Reason: RX to Dose Metoprolol Tartrate (Lopressor) 5 mg IVPUSH Q4H PRN PRN Reason: Tachycardia Last Admin: 01/13/17 08:46 Dose: 5 mg Pantoprazole Sodium (Protonix Iv) 40 mg IVPUSH DAILY [facility] Last Admin: 01/13/17 08:01 Dose: 40 mg Potassium Chloride (Pharmacy To Dose - Potassium Replacement) 1 dose .XX ASDIRECTED [facility] Sodium Chloride (Saline Flush) 10 ml FLUSH ASDIRECTED PRN PRN Reason: Keep Vein Open Discontinued Medications Albuterol/Ipratropium (Duoneb 3.0-0.5 Mg/3 Ml) Confirm Administered Dose 3 ml .ROUTE .STK-MED ONE Stop: 01/13/17 08:53 Last Admin: 01/13/17 09:03 Dose: Not Given Clonidine HCl (Catapres) 0.1 mg PO Q4H PRN PRN Reason: Agitation Diphenhydramine HCl (Benadryl) 50 mg IVPUSH ONETIME ONE Stop: 01/10/17 21:57 Last Admin: 01/10/17 22:28 Dose: 50 mg Famotidine (Pepcid) 20 mg IVPUSH ONETIME ONE Stop: 01/10/17 22:12 Last Admin: 01/10/17 22:28 Dose: 20 mg Famotidine (Pepcid) 20 mg PO DAILY [facility] Last Admin: 01/11/17 10:31 Dose: Not Given Folic Acid (Folic Acid) 1 mg PO DAILY [facility] Last Admin: 01/11/17 10:31 Dose: Not Given Hydralazine HCl (Apresoline) 20 mg PO Q6H PRN PRN Reason: Hypertension Sodium Chloride (Normal Saline) 1,000 mls @ 999 mls/hr IV ONETIME ONE Stop: 01/10/17 19:40 Last Admin: 01/10/17 18:52 Dose: 999 mls/hr Ceftriaxone Sodium 1 gm/ (Sodium Chloride) 100 mls @ 200 mls/hr IV ONETIME ONE Stop: 01/10/17 20:15 Last Admin: 01/10/17 19:59 Dose: 200 mls/hr Magnesium Sulfate 2 gm/ Premix 50 mls @ 25 mls/hr IV ONETIME ONE Stop: 01/10/17 21:46 Last Admin: 01/10/17 21:08 Dose: 25 mls/hr Sodium Chloride (Normal Saline) 1,000 mls @ 250 mls/hr IV ASDIRECTED [facility] Last Admin: 01/11/17 13:27 Dose: 250 mls/hr Sodium Chloride (Normal Saline) 1,000 [facility]ls @ [facility] Admin: 01/10/17 22:19 Dose: 999 mls/hr Sodium Chloride (Normal Saline) 1,000 mls @ 999 mls/hr IV ONETIME ONE Stop: 01/10/17 22:46 Last Admin: 01/10/17 22:18 Dose: 999 mls/hr Thiamine HCl 200 mg/ Sodium (Chloride) 102 mls @ 204 mls/hr IV ONETIME ONE Stop: 01/10/17 21:55 Last Admin: 01/10/17 22:39 Dose: 204 mls/hr Magnesium Sulfate 2 gm/ Premix 50 mls @ 25 mls/hr IV ONETIME ONE Stop: 01/11/17 00:13 Last Admin: 01/10/17 23:31 Dose: 25 mls/hr Levofloxacin/Dextrose 250 mg/ (Premix) 50 mls @ 50 mls/hr IV ONETIME ONE Stop: 01/10/17 23:15 Last Admin: 01/11/17 00:28 Dose: 50 mls/hr Dextrose/Sodium Chloride (Dextrose 5%-Normal Saline) 1,000 mls @ 150 mls/hr IV ASDIRECTED [facility] Last Admin: 01/12/17 07:24 Dose: 150 mls/hr Magnesium Sulfate/Dextrose 1 (gm/ Premix) 100 mls @ 100 mls/hr IV Q1H [facility] Stop: 01/12/17 10:59 Last Admin: 01/12/17 10:41 Dose: 100 mls/hr Magnesium Sulfate/Dextrose 1 (gm/ Premix) 100 mls @ 100 mls/hr IV Q1H [facility] Stop: 01/13/17 10:59 Magnesium Sulfate (Magnesium Sulfate 2 Gm In Water 50 Ml) Confirm Administered Dose 50 mls @ as directed .ROUTE .STK-MED ONE Stop: 01/13/17 08:43 Last Admin: 01/13/17 08:59 Dose: Not Given Insulin Aspart (Novolog) 0 unit SUBCUT Q6HR [facility] PRN Reason: Protocol Last Admin: 01/11/17 12:06 Dose: Not Given Insulin Aspart (Novolog) 0 unit SUBCUT QIDACANDBED [facility] PRN Reason: Protocol Last Admin: 01/12/17 16:56 Dose: 4 units Insulin Aspart (Novolog) 0 unit SUBCUT Q6HR [facility] PRN Reason: Protocol Last Admin: 01/13/17 00:05 Dose: Not Given Insulin Detemir (Levemir) 10 unit SUBCUT BEDTIME [facility] Last Admin: 01/12/17 21:28 Dose: 10 units Lorazepam (Ativan) 1 - 3 mg IVPUSH Q4H PRN; Protocol PRN Reason: withdrawal Last Admin: 01/11/17 21:44 Dose: 1 mg Magnesium Sulfate (Pharmacy To Dose - Magnesium Replacement) 1 dose .XX ASDIRECTED [facility] Sodium Chloride (Saline Flush) 10 ml FLUSH ASDIRECTED PRN PRN Reason: Keep Vein Open Last Admin: 01/12/17 22:52 Dose: 10 ml Topiramate (Topamax) 25 mg PO BID [facility] Last Admin: 01/11/17 12:19 Dose: Not Given - Exam General: Mild Distress, Sedated, Obtunded HEENT: Pupils Equal, Pupils Reactive Neck: Supple Lungs: Clear to Auscultation, Other (Intermittent laboured breathing) Cardiovascular: Tachycardia GI/Abdominal Exam: Normal Bowel Sounds, Soft, Non-Tender, No Organomegaly, No Distention, No Abnormal Bruit, No Mass, Pelvis Stable (Female) Exam: Deferred Back Exam: Normal Inspection Extremities: Normal Inspection, No Pedal Edema Peripheral Pulses: 2+: Carotid (L), Carotid (R), Brachial (L), Brachial (R), Radial (L), Radial (R), Femoral (L), Femoral (R), Popliteal (L), Popliteal (R), Posterior Tibial (L), Posterior Tibial (R), Dorsalis Pedis (L), Dorsalis Pedis ( R) Skin: Warm, Dry, Intact Neurological: No New Focal Deficit Psy/Mental Status: Withdrawal Symptoms - Problem List & Annotations (1) Withdrawal symptoms, drug or narcotic SNOMED Code(s): 602854528 Code(s): F19.939 - OTHER PSYCHOACTIVE SUBSTANCE USE, UNSP WITH WITHDRAWAL, UNSP Status: Acute Current Visit: Yes (2) Overdose SNOMED Code(s): 12592719 Code(s): T50.901A - POISONING BY UNSP DRUG/MEDS/BIOL SUBST, ACCIDENTAL, INIT Status: Acute Priority: High Current Visit: Yes Qualifiers: Encounter type: initial encounter Injury intent: undetermined intent Qualified Code(s): T50.904A - Poisoning by unspecified drugs, medicaments and biological substances, undetermined, initial encounter (3) Altered mental status SNOMED Code(s): 794255332 Code(s): R41.82 - ALTERED MENTAL STATUS, UNSPECIFIED Status: Acute Priority: High Current Visit: Yes Qualifiers: Altered mental status type: somnolence Qualified Code(s): R40.0 - Somnolence (4) Escherichia coli urinary tract infection SNOMED Code(s): 163558183 Code(s): N39.0 - URINARY TRACT INFECTION, SITE NOT SPECIFIED; B96.20 - UNSP ESCHERICHIA COLI THE CAUSE OF DISEASES CLASSD ELSWHR Status: Acute Priority: High Current Visit: Yes (5) Rhabdomyolysis SNOMED Code(s): 909520434 Code(s): M62.82 - RHABDOMYOLYSIS Status: Acute Priority: High Current Visit: Yes Qualifiers: Rhabdomyolysis type: non-traumatic Qualified Code(s): M62.82 - Rhabdomyolysis (6) Anemia SNOMED Code(s): 127086249 Code(s): D64.9 - ANEMIA, UNSPECIFIED Status: Acute Current Visit: Yes Qualifiers: Anemia type: unspecified type Qualified Code(s): D64.9 - Anemia, unspecified Annotation/Comment:: Possibly dilutional (7) Thrombocytopenia SNOMED Code(s): 897730291 Code(s): D69.6 - THROMBOCYTOPENIA, UNSPECIFIED Status: Chronic Current Visit: Yes (8) Metabolic acidosis with normal anion gap and failure of bicarbonate regeneration SNOMED Code(s): 87383684 Code(s): E87.2 - ACIDOSIS Status: Acute Current Visit: Yes (9) Alcohol abuse SNOMED Code(s): 74758925 Code(s): F10.10 - ALCOHOL ABUSE, UNCOMPLICATED Status: Acute Priority: Medium Current Visit: Yes - Problem List Review Problem List Initiated/Reviewed/Updated: Yes - My Orders Last 24 Hours: My Active Orders 01/12/17 12:43 hydrALAZINE [Apresoline] 10 mg IVPUSH Q2H PRN 01/12/17 14:00 cefTRIAXone [Rocephin] 1 gm Sodium Chloride 0.9% [Normal Saline] 100 ml IV Q24H 01/12/17 14:15 Dextrose 5%-0.45% NaCl [Dextrose 5%-1/2 NS] 1,000 ml IV ASDIRECTED 01/13/17 04:00 Insulin Aspart [NovoLOG] See Protocol SUBCUT Q6H 01/13/17 08:42 Magnesium Sulfate/Water [Magnesium Sulfate 2 GM in Water 50 ML] 2 gm Premix Bag 1 bag IV ONETIME 01/13/17 08:55 RT Aerosol Therapy [RC] ASDIRECTED 01/13/17 09:00 Albuterol/Ipratropium [DuoNeb 3.0-0.5 MG/3 ML] 3 ml NEB Q4HRRT 01/13/17 09:29 ABG [BLOOD GAS ARTERIAL] [BG] Routine 01/13/17 09:31 Chest 1V Frontal [CR] Routine 01/13/17 10:00 Insulin Detemir [Levemir] 10 unit SUBCUT BID 01/13/17 11:00 Potassium Chloride [KCl 10 MEQ in Water 100 ML] 10 meq Premix Bag 1 bag IV Q1H - Plan Plan:: I/P: Acute: Altered mental status most likely 2/2 overdose of prescription medications -Continuous cardiac monitoring -1:1 care -NPO -Continue IV fluid hydration with 0.9% normal saline -Aspiration/fall/seizure/suicide precautions as indicated Rhabdomyolysis -Recheck CPK level daily. -Continue IV fluid hydration Escherichia coli UTI -Continue IV antibiotic therapy with Rocephin 1 g every 24 hours. Hx/o ETOH abuse/dependence -Family reports pt. drinks heavily daily -ETOH 0.00 in ED -Liver enzymes elevated -Concern over withdrawal symptoms -CIWAA protocol Q1hr initiated -PRN ativan ordered for seizures -Catapress PRN -Folic acid 1mg tomorrow -Thiamine 200mg IV now Right lung atelectasis possibly due to aspiration -Repeat chest x-ray done today we will await radiology interpretation. I personally reviewed the chest x-ray and appreciates only a left lower lobe atelectasis without any opacities or consolidation. - Continue DuoNeb therapy every 4 hours. Gait Hypomagnesemia -Pharmacy to monitor and replete Hyperglycemia -Start Insulin Glargin at 10 units twice daily -Low to medium-dose insulin sliding scale coverage. -D50 for hypoglycemia -Glucose checks every 6hrs Patient is high fall risk Chronic: HTN - PRN medications Asthma - PRN duoneb, RT assess and treat GERD Depression Iron deficiency Thrombocytopenia Plan: CM/SW for discharge planning Dr. Gallardo consult Mason Mckeon consult Hold home medications for now Routine AM labs CPK levels daily DVT/PE prophylaxis - MJ hose; SCDs and lovenox contraindicated in patients current medical state GI prophylaxis Other orders as indicated above Pt. is full code.
[2017-01-13] MEDS: Potassium Chloride 10 MEQ in Premix Bag 1 BAG IV SCH ×4 (10:11→13:08)
[2017-01-13] MEDS: Insulin Detemir 100 Units/ML 3 ML Pen SUBCUT SCH ×2 (10:13→21:50)
[2017-01-13] MEDS ORDERED: Furosemide 20 MG/2 ML VIAL IVPUSH ONE (10:42)
[2017-01-13] MEDS ORDERED: Sodium Chloride 0.9% 1,000 ML IV SCH (10:45)
[2017-01-13] MEDS: LORazepam 2 MG/ML MDV IVPUSH SCH ×2 (11:43→17:26)
[2017-01-13] MEDS: cefTRIAXone 1 GM in Sodium Chloride 0.9% 100 ML IV SCH (13:58)
[2017-01-13] MEDS ORDERED: LORazepam 2 MG/ML MDV IVPUSH PRN (15:46)
[2017-01-13] MEDS: Morphine 2 MG/ML Syringe IVPUSH PRN ×3 (15:55→22:00)
[2017-01-13] MEDS: Sodium Chloride 0.9% 1,000 ML IV SCH ×2 (16:37→21:40)
[2017-01-14] MEDS: LORazepam 2 MG/ML MDV IVPUSH SCH ×4 (00:32→18:14)
[2017-01-14] MEDS: Morphine 2 MG/ML Syringe IVPUSH PRN ×6 (00:58→19:52)
[2017-01-14] MEDS: LORazepam 2 MG/ML MDV IVPUSH PRN ×4 (01:04→21:15)
[2017-01-14] MEDS: Sodium Chloride 0.9% 1,000 ML IV SCH ×5 (02:25→22:26)
[2017-01-14] MEDS: Albuterol/Ipratropium 3.0-0.5 MG/3 ML Neb Soln NEB SCH ×3 (03:32→09:58)
[2017-01-14] MEDS: Insulin Aspart 100 Units/ML 3 ML Pen SUBCUT SCH ×4 (04:57→21:47)
[2017-01-14] MEDS: Metoprolol Tartrate 5 MG/5 ML SDV IVPUSH PRN ×3 (06:21→21:31)
[2017-01-14] MEDS: hydrALAZINE 20 MG/ML SDV IVPUSH PRN ×3 (06:53→15:36)
[2017-01-14] MEDS ORDERED: Magnesium Sulfate/Water 4 GM in Premix Bag 1 BAG IV SCH (08:30)
[2017-01-14] MEDS: Pantoprazole 40 MG Vial IVPUSH SCH (09:23)
[2017-01-14] MEDS: Insulin Detemir 100 Units/ML 3 ML Pen SUBCUT SCH ×2 (09:25→21:44)
--- NOTE | 2017-01-14 10:24 | CR ---
Chest: Portable view of the chest was obtained. Comparison: Prior chest x-ray of 01/11/17. Patchy areas of increased density are noted within the right upper and throughout the left lung as well as right lung. Atelectasis adjacent to the minor fissure that was noted on prior study appears improved. Heart size and mediastinum are within normal limits for portable technique. Bony structures are grossly intact. Previous abdominal surgery is noted. Impression: 1. Decreased atelectasis within the right lung base. 2. Areas of increasing density within the right and left lung with differential including change from aspiration, pneumonia as well as diffuse areas of atelectasis. Diagnostic code #3 Agree with preliminary report issued by [facility] ([facility] preliminary report dictated on 01/13/17, 12:44 PM Central Time)
[2017-01-14] MEDS ORDERED: Furosemide 40 MG/4 ML VIAL IVPUSH ONE (11:37)
[2017-01-14] MEDS: Potassium Chloride 10 MEQ in Premix Bag 1 BAG IV SCH ×4 (12:24→16:17)
--- NOTE | 2017-01-14 13:10 | PCM.PN ---
- General Info Date of Service: 01/14/17 Admission Dx/Problem (Free Text): Admission Diagnosis/Problem Admission Diagnosis/Problem Altered mental status Subjective Update: Patient seen and examined bedside with the nurse this morning. Still intermittently agitated with periods of rest. She is still on Ativan as well as morphine and vital signs are noted to be unstable. She appears hypoxic when she is restless but once settled her oxygen saturation improves. Chest x-ray was done this morning and we await radiology interpretation. She is still on IV fluid hydration at 200 mL/h and repeat CPK level has decreased to 5000. Patient is noted to have a run of V. tach as well as SVTs intermittently. - Review of Systems Systems Review Comment:: Unable to obtain as patient is still obtunded/sedated - Patient Data Vitals - Most Recent: Last Vital Signs Temp 99.4 F 01/14/17 09:07 Pulse 122 H 01/14/17 09:07 Resp 26 H 01/14/17 09:07 BP 140/83 01/14/17 09:07 Pulse Ox 97 01/14/17 09:58 Weight - Most Recent: 90.083 kg I&O - Last 24 Hours: Intake & Output 01/13/17 01/14/17 01/14/17 22:59 06:59 14:59 Intake Total 2550 241 Output Total 430 425 35 Balance 2120 -184 -35 Lab Results Last 24 Hours: Laboratory Results - last 24 hr 01/13/17 01/13/17 01/13/17 Range/Units 14:33 15:46 21:45 WBC (3.98-10.04) K/mm3 RBC (3.98-5.22) M/mm3 Hgb (11.2-15.7) gm/L Hct (34.1-44.9) % MCV (79.4-94.8) fl MCH (25.6-32.2) pg MCHC (32.2-35.5) g/dl RDW Std Deviation (36.4-46.3) fL Plt Count (182-369) K/mm3 MPV (9.4-12.3) fl Neut % (Auto) (34.0-71.1) % Lymph % (Auto) (19.3-51.7) % Miner % (Auto) (4.7-12.5) % Eos % (Auto) (0.7-5.8) Baso % (Auto) (0.1-1.2) % Neut # (Auto) (1.56-6.13) K/mm3 Lymph # (Auto) (1.18-3.74) K/mm3 Miner # (Auto) (0.24-0.36) K/mm3 Eos # (Auto) (0.04-0.36) K/mm3 Baso # (Auto) (0.01-0.08) K/mm3 Manual Slide Review Sodium (136-145) mEq/L Potassium (3.5-5.1) mEq/L Chloride (98-107) mEq/L Carbon Dioxide (21-32) mEq/L Anion Gap (5-15) BUN (7-18) mg/dL Creatinine (0.55-1.02) mg/dL Est Cr Clr Drug Dosing mL/min Estimated GFR (MDRD) (>60) mL/min BUN/Creatinine Ratio (14-18) Glucose (74-106) mg/dL POC Glucose 276 H 165 H (70-105) mg/dL Calcium (8.5-10.1) mg/dL Magnesium (1.8-2.4) mg/dl Creatine Kinase (26-192) U/L C.difficile 027-NAP1-B1 Presumptive negative C. difficile Tox (PCR) Negative 01/14/17 01/14/17 01/14/17 Range/Units 04:52 05:35 05:35 WBC 4.64 (3.98-10.04) K/mm3 RBC 2.40 L (3.98-5.22) M/mm3 Hgb 8.7 L (11.2-15.7) gm/L Hct 26.8 L (34.1-44.9) % MCV 111.7 H (79.4-94.8) fl MCH 36.3 H (25.6-32.2) pg MCHC 32.5 (32.2-35.5) g/dl RDW Std Deviation 50.3 H (36.4-46.3) fL Plt Count 68 L (182-369) K/mm3 MPV 10.5 (9.4-12.3) fl Neut % (Auto) 72.3 H (34.0-71.1) % Lymph % (Auto) 14.4 L (19.3-51.7) % Miner % (Auto) 11.2 (4.7-12.5) % Eos % (Auto) 1.5 (0.7-5.8) Baso % (Auto) 0.2 (0.1-1.2) % Neut # (Auto) 3.35 (1.56-6.13) K/mm3 Lymph # (Auto) 0.67 L (1.18-3.74) K/mm3 Miner # (Auto) 0.52 H (0.24-0.36) K/mm3 Eos # (Auto) 0.07 (0.04-0.36) K/mm3 Baso # (Auto) 0.01 (0.01-0.08) K/mm3 Manual Slide Review Abnormal smear Sodium 149 H (136-145) mEq/L Potassium 3.7 (3.5-5.1) mEq/L Chloride 117 H (98-107) mEq/L Carbon Dioxide 23 (21-32) mEq/L Anion Gap 12.7 (5-15) BUN 10 (7-18) mg/dL Creatinine 0.9 (0.55-1.02) mg/dL Est Cr Clr Drug Dosing 76.42 mL/min Estimated GFR (MDRD) > 60 (>60) mL/min BUN/Creatinine Ratio 11.1 L (14-18) Glucose 161 H (74-106) mg/dL POC Glucose 151 H (70-105) mg/dL Calcium 6.9 L (8.5-10.1) mg/dL Magnesium 1.6 L (1.8-2.4) mg/dl Creatine Kinase (26-192) U/L C.difficile 027-NAP1-B1 C. difficile Tox (PCR) 01/14/17 01/14/17 01/14/17 Range/Units 05:35 09:26 10:49 WBC (3.98-10.04) K/mm3 RBC (3.98-5.22) M/mm3 Hgb (11.2-15.7) gm/L Hct (34.1-44.9) % MCV (79.4-94.8) fl MCH (25.6-32.2) pg MCHC (32.2-35.5) g/dl RDW Std Deviation (36.4-46.3) fL Plt Count (182-369) K/mm3 MPV (9.4-12.3) fl Neut % (Auto) (34.0-71.1) % Lymph % (Auto) (19.3-51.7) % Miner % (Auto) (4.7-12.5) % Eos % (Auto) (0.7-5.8) Baso % (Auto) (0.1-1.2) % Neut # (Auto) (1.56-6.13) K/mm3 Lymph # (Auto) (1.18-3.74) K/mm3 Miner # (Auto) (0.24-0.36) K/mm3 Eos # (Auto) (0.04-0.36) K/mm3 Baso # (Auto) (0.01-0.08) K/mm3 Manual Slide Review Sodium (136-145) mEq/L Potassium (3.5-5.1) mEq/L Chloride (98-107) mEq/L Carbon Dioxide (21-32) mEq/L Anion Gap (5-15) BUN (7-18) mg/dL Creatinine (0.55-1.02) mg/dL Est Cr Clr Drug Dosing mL/min Estimated GFR (MDRD) (>60) mL/min BUN/Creatinine Ratio (14-18) Glucose (74-106) mg/dL POC Glucose 177 H 180 H (70-105) mg/dL Calcium (8.5-10.1) mg/dL Magnesium (1.8-2.4) mg/dl Creatine Kinase 5730 H (26-192) U/L C.difficile 027-NAP1-B1 C. difficile Tox (PCR) Shawn Results Last 24 Hours: Microbiology 01/13/17 14:33 Stool for WBCs - Final Stool / Feces NO WBC SEEN Med Orders - Current: Current Medications Dextrose/Water (Dextrose 50% In Water) 50 ml IVPUSH ASDIRECTED PRN PRN Reason: hypoglycemia Hydralazine HCl (Apresoline) 10 mg IVPUSH Q2H PRN PRN Reason: Hypertension Last Admin: 01/14/17 11:59 Dose: 10 mg Ceftriaxone Sodium 1 gm/ (Sodium Chloride) 100 mls @ 200 mls/hr IV Q24H [facility] Last Admin: 01/13/17 13:58 Dose: 200 mls/hr Potassium Chloride 10 meq/ (Premix) 100 mls @ 100 mls/hr IV Q1H [facility] Stop: 01/14/17 16:29 Last Admin: 01/14/17 12:24 Dose: 100 mls/hr Sodium Chloride (Normal Saline) 1,000 mls @ 100 mls/hr IV ASDIRECTED [facility] Insulin Aspart (Novolog) 0 unit SUBCUT Q6H [facility] PRN Reason: Protocol Last Admin: 01/14/17 10:49 Dose: 3 units Insulin Detemir (Levemir) 10 unit SUBCUT BID [facility] Last Admin: 01/14/17 09:25 Dose: 10 units Levalbuterol HCl (Xopenex) 1.25 mg NEB Q4HRRT [facility] Lorazepam (Ativan) 1 - 3 mg IVPUSH ASDIRECTED PRN; Protocol PRN Reason: withdrawal Last Admin: 01/14/17 01:04 Dose: 2 mg Lorazepam (Ativan) 4 mg IVPUSH Q6H [facility] Last Admin: 01/14/17 10:36 Dose: 4 mg Lorazepam (Ativan) 4 mg IVPUSH Q2H PRN PRN Reason: severe agitation/withdrawl Last Admin: 01/14/17 01:42 Dose: 4 mg Magnesium Sulfate (Pharmacy To Dose - Magnesium Replacement) 1 dose .XX ASDIRECTED PRN PRN Reason: RX to Dose Metoprolol Tartrate (Lopressor) 5 mg IVPUSH Q4H PRN PRN Reason: Tachycardia Last Admin: 01/14/17 06:21 Dose: 5 mg Morphine Sulfate (Morphine) 2 mg IVPUSH Q2H PRN PRN Reason: pain, NVPS agitation Last Admin: 01/14/17 11:11 Dose: 2 mg Pantoprazole Sodium (Protonix Iv) 40 mg IVPUSH DAILY [facility] Last Admin: 01/14/17 09:23 Dose: 40 mg Potassium Chloride (Pharmacy To Dose - Potassium Replacement) 1 dose .XX ASDIRECTED [facility] Sodium Chloride (Saline Flush) 10 ml FLUSH ASDIRECTED PRN PRN Reason: Keep Vein Open Discontinued Medications Albuterol/Ipratropium (Duoneb 3.0-0.5 Mg/3 Ml) 3 ml NEB Q4HRRT [facility] Last Admin: 01/14/17 09:58 Dose: 3 ml Albuterol/Ipratropium (Duoneb 3.0-0.5 Mg/3 Ml) Confirm Administered Dose 3 ml .ROUTE .STK-MED ONE Stop: 01/13/17 08:53 Last Admin: 01/13/17 09:03 Dose: Not Given Clonidine HCl (Catapres) 0.1 mg PO Q4H PRN PRN Reason: Agitation Diphenhydramine HCl (Benadryl) 50 mg IVPUSH ONETIME ONE Stop: 01/10/17 21:57 Last Admin: 01/10/17 22:28 Dose: 50 mg Famotidine (Pepcid) 20 mg IVPUSH ONETIME ONE Stop: 01/10/17 22:12 Last Admin: 01/10/17 22:28 Dose: 20 mg Famotidine (Pepcid) 20 mg PO DAILY [facility] Last Admin: 01/11/17 10:31 Dose: Not Given Folic Acid (Folic Acid) 1 mg PO DAILY [facility] Last Admin: 01/11/17 10:31 Dose: Not Given Furosemide (Lasix) 20 mg IVPUSH NOW ONE Stop: 01/13/17 10:43 Last Admin: 01/13/17 10:56 Dose: 20 mg Furosemide (Lasix) 40 mg IVPUSH NOW ONE Stop: 01/14/17 11:38 Last Admin: 01/14/17 11:51 Dose: 40 mg Hydralazine HCl (Apresoline) 20 mg PO Q6H PRN PRN Reason: Hypertension Sodium Chloride (Normal Saline) 1,000 mls @ 999 mls/hr IV ONETIME ONE Stop: 01/10/17 19:40 Last Admin: 01/10/17 18:52 Dose: 999 mls/hr Ceftriaxone Sodium 1 gm/ (Sodium Chloride) 100 mls @ 200 mls/hr IV ONETIME ONE Stop: 01/10/17 20:15 Last Admin: 01/10/17 19:59 Dose: 200 mls/hr Magnesium Sulfate 2 gm/ Premix 50 mls @ 25 mls/hr IV ONETIME ONE Stop: 01/10/17 21:46 Last Admin: 01/10/17 21:08 Dose: 25 mls/hr Sodium Chloride (Normal Saline) 1,000 mls @ 250 mls/hr IV ASDIRECTED [facility] Last Admin: 01/11/17 13:27 Dose: 250 mls/hr Sodium Chloride (Normal Saline) 1,000 mls @ 999 mls/hr IV ASDIRECTED [facility] Last Admin: 01/10/17 22:19 Dose: 999 mls/hr Sodium Chloride (Normal Saline) 1,000 mls @ 999 mls/hr IV ONETIME ONE Stop: 01/10/17 22:46 Last Admin: 01/10/17 22:18 Dose: 999 mls/hr Thiamine HCl 200 mg/ Sodium (Chloride) 102 mls @ 204 mls/hr IV ONETIME ONE Stop: 01/10/17 21:55 Last Admin: 01/10/17 22:39 Dose: 204 mls/hr Magnesium Sulfate 2 gm/ Premix 50 mls @ 25 mls/hr IV ONETIME ONE Stop: 01/11/17 00:13 Last Admin: 01/10/17 23:31 Dose: 25 mls/hr Levofloxacin/Dextrose 250 mg/ (Premix) 50 mls @ 50 mls/hr IV ONETIME ONE Stop: 01/10/17 23:15 Last Admin: 01/11/17 00:28 Dose: 50 mls/hr Dextrose/Sodium Chloride (Dextrose 5%-Normal Saline) 1,000 mls @ 150 mls/hr IV ASDIRECTED [facility] Last Admin: 01/12/17 07:24 Dose: 150 mls/hr Magnesium Sulfate/Dextrose 1 (gm/ Premix) 100 mls @ 100 mls/hr IV Q1H [facility] Stop: 01/12/17 10:59 Last Admin: 01/12/17 10:41 Dose: 100 mls/hr Dextrose/Sodium Chloride (Dextrose 5%-1/2 Ns) 1,000 mls @ 125 mls/hr IV ASDIRECTED [facility] Last Admin: 01/13/17 06:45 Dose: 125 mls/hr Magnesium Sulfate/Dextrose 1 (gm/ Premix) 100 mls @ 100 mls/hr IV Q1H [facility] Stop: 01/13/17 10:59 Potassium Chloride 10 meq/ (Premix) 100 mls @ 100 mls/hr IV Q1H [facility] Stop: 01/13/17 14:59 Last Admin: 01/13/17 13:08 Dose: 100 mls/hr Magnesium Sulfate 2 gm/ Premix 50 mls @ 25 mls/hr IV ONETIME ONE Stop: 01/13/17 10:41 Last Admin: 01/13/17 08:46 Dose: 25 mls/hr Magnesium Sulfate (Magnesium Sulfate 2 Gm In Water 50 Ml) Confirm Administered Dose 50 mls @ as directed .ROUTE .STK-MED ONE Stop: 01/13/17 08:43 Last Admin: 01/13/17 08:59 Dose: Not Given Sodium Chloride (Normal Saline) 1,000 mls @ 125 mls/hr IV ASDIRECTED [facility] Last Admin: 01/13/17 14:37 Dose: 125 mls/hr Sodium Chloride (Normal Saline) 1,000 mls @ 200 mls/hr IV ASDIRECTED [facility] Last Infusion: 01/14/17 12:40 Dose: 100 mls/hr Magnesium Sulfate 4 gm/ Premix 100 mls @ 25 mls/hr IV ONETIME [facility] Stop: 01/14/17 12:29 Last Admin: 01/14/17 08:48 Dose: 25 mls/hr Insulin Aspart (Novolog) 0 unit SUBCUT Q6HR [facility] PRN Reason: Protocol Last Admin: 01/11/17 12:06 Dose: Not Given Insulin Aspart (Novolog) 0 unit SUBCUT QIDACANDBED [facility] PRN Reason: Protocol Last Admin: 01/12/17 16:56 Dose: 4 units Insulin Aspart (Novolog) 0 unit SUBCUT Q6HR [facility] PRN Reason: Protocol Last Admin: 01/13/17 00:05 Dose: Not Given Insulin Detemir (Levemir) 10 unit SUBCUT BEDTIME [facility] Last Admin: 01/12/17 21:28 Dose: 10 units Lorazepam (Ativan) 1 - 3 mg IVPUSH Q4H PRN; Protocol PRN Reason: withdrawal Last Admin: 01/11/17 21:44 Dose: 1 mg Lorazepam (Ativan) 2 mg IVPUSH Q4H PRN PRN Reason: Seizures Last Admin: 01/13/17 13:55 Dose: 2 mg Magnesium Sulfate (Pharmacy To Dose - Magnesium Replacement) 1 dose .XX ASDIRECTED [facility] Sodium Chloride (Saline Flush) 10 ml FLUSH ASDIRECTED PRN PRN Reason: Keep Vein Open Last Admin: 01/12/17 22:52 Dose: 10 ml Topiramate (Topamax) 25 mg PO BID [facility] Last Admin: 01/11/17 12:19 Dose: Not Given - Exam General: Sedated, Obtunded. No: Alert, Oriented HEENT: Pupils Equal, Pupils Reactive, EOMI, Mucous Membr. Moist/[place]ck: Supple Lungs: Rales, Rhonchi, Other (Tachypnea) Cardiovascular: Tachycardia GI/Abdominal Exam: Normal Bowel Sounds, Soft, Non-Tender, No Organomegaly, No Distention, No Abnormal Bruit, No Mass, Pelvis Stable (Female) Exam: Deferred Back Exam: Normal Inspection Extremities: Normal Inspection, Normal Range of Motion, Non-Tender, No Pedal Edema, Normal Capillary Refill Peripheral Pulses: 2+: Carotid (L), Carotid (R), Brachial (L), Brachial (R), Radial (L), Radial (R), Femoral (L), Femoral (R), Popliteal (L), Popliteal (R), Posterior Tibial (L), Posterior Tibial (R), Dorsalis Pedis (L), Dorsalis Pedis ( R) Skin: Warm, Dry, Intact Neurological: Other (Patient is able to move all limbs) Psy/Mental Status: Other (Obtunded) - Problem List & Annotations (1) Withdrawal symptoms, drug or narcotic SNOMED Code(s): 539598895 Code(s): F19.939 - OTHER PSYCHOACTIVE SUBSTANCE USE, UNSP WITH WITHDRAWAL, UNSP Status: Acute Current Visit: Yes (2) Overdose SNOMED Code(s): 07362478 Code(s): T50.901A - POISONING BY UNSP DRUG/MEDS/BIOL SUBST, ACCIDENTAL, INIT Status: Acute Priority: High Current Visit: Yes Qualifiers: Encounter type: initial encounter Injury intent: undetermined intent Qualified Code(s): T50.904A - Poisoning by unspecified drugs, medicaments and biological substances, undetermined, initial encounter (3) Altered mental status SNOMED Code(s): 018480505 Code(s): R41.82 - ALTERED MENTAL STATUS, UNSPECIFIED Status: Acute Priority: High Current Visit: Yes Qualifiers: Altered mental status type: somnolence Qualified Code(s): R40.0 - Somnolence (4) Escherichia coli urinary tract infection SNOMED Code(s): 428939044 Code(s): N39.0 - URINARY TRACT INFECTION, SITE NOT SPECIFIED; B96.20 - UNSP ESCHERICHIA COLI THE CAUSE OF DISEASES CLASSD ELSWHR Status: Acute Priority: High Current Visit: Yes (5) Rhabdomyolysis SNOMED Code(s): 132562883 Code(s): M62.82 - RHABDOMYOLYSIS Status: Acute Priority: High Current Visit: Yes Qualifiers: Rhabdomyolysis type: non-traumatic Qualified Code(s): M62.82 - Rhabdomyolysis (6) Anemia SNOMED Code(s): 371708705 Code(s): D64.9 - ANEMIA, UNSPECIFIED Status: Acute Current Visit: Yes Qualifiers: Anemia type: unspecified type Qualified Code(s): D64.9 - Anemia, unspecified Annotation/Comment:: Possibly dilutional (7) Thrombocytopenia SNOMED Code(s): 548577834 Code(s): D69.6 - THROMBOCYTOPENIA, UNSPECIFIED Status: Chronic Current Visit: Yes (8) Metabolic acidosis with normal anion gap and failure of bicarbonate regeneration SNOMED Code(s): 15351065 Code(s): E87.2 - ACIDOSIS Status: Acute Current Visit: Yes (9) Alcohol abuse SNOMED Code(s): 41662173 Code(s): F10.10 - ALCOHOL ABUSE, UNCOMPLICATED Status: Acute Priority: Medium Current Visit: Yes - Problem List Review Problem List Initiated/Reviewed/Updated: Yes - My Orders Last 24 Hours: My Active Orders 01/13/17 14:33 CULTURE STOOL + SHIGATOX [RM] Routine 01/13/17 15:46 LORazepam [Ativan] 4 mg IVPUSH Q2H PRN Morphine 2 mg IVPUSH Q2H PRN 01/13/17 15:50 Communication Order [RC] STAT 01/14/17 09:54 Blood Glucose Check, Bedside [RC] ONETIME 01/14/17 11:38 RT Aerosol Therapy [RC] ASDIRECTED 01/14/17 11:57 Chest 1V Frontal [CR] Stat 01/14/17 12:30 Potassium Chloride [KCl 10 MEQ in Water 100 ML] 10 meq Premix Bag 1 bag IV Q1H 01/14/17 12:45 Sodium Chloride 0.9% [Normal Saline] 1,000 ml IV ASDIRECTED 01/14/17 13:00 CALCIUM, IONIZED [REF] Stat 01/14/17 14:00 Levalbuterol HCl [Xopenex] 1.25 mg NEB Q4HRRT - Plan Plan:: I/P: Acute: Altered mental status most likely 2/2 overdose of prescription medications -Continuous cardiac monitoring -1:1 care -Will plan to insert NG tube for feeding. -Continue IV fluid hydration with 0.9% normal saline -Aspiration/fall/seizure/suicide precautions as indicated Rhabdomyolysis -Recheck CPK level daily. -Continue IV fluid hydration Escherichia coli UTI -Continue IV antibiotic therapy with Rocephin 1 g every 24 hours. Hx/o ETOH abuse/dependence -Concern over withdrawal symptoms -CIWAA protocol -PRN ativan Right lung atelectasis possibly due to aspiration -Repeat chest x-ray done today we will await radiology interpretation. I personally reviewed the chest x-ray and appreciates only a left lower lobe atelectasis without any opacities or consolidation. - Continue bronchodilator therapy therapy every 4 hours. Hypomagnesemia -Pharmacy to monitor and replete Hyperglycemia -Start Insulin Glargin at 10 units twice daily -Low to medium-dose insulin sliding scale coverage. -D50 for hypoglycemia -Glucose checks every 6hrs Patient is high fall risk Chronic: HTN - PRN medications Asthma - PRN duoneb, RT assess and treat GERD Depression Iron deficiency Thrombocytopenia Plan: CM/SW for discharge planning Dr. Gallardo consult Mason Mckeon consult Hold home medications for now Routine AM labs CPK levels daily DVT/PE prophylaxis - MJ hose; SCDs and lovenox contraindicated in patients current medical state GI prophylaxis Other orders as indicated above Pt. is full code.
--- NOTE | 2017-01-14 13:39 | CR ---
Chest: Portable view of the chest was obtained. Comparison: Previous chest x-ray of 01/13/17. Increased density throughout the left chest as well as within the right chest is seen. Findings are stable from prior exam. Heart size and mediastinum are also stable as well as bony structures. Impression: 1. Diffuse increased density within both sides of the chest worse on the left side. Findings remain stable from previous study performed one day earlier. Diagnostic code #3
[2017-01-14] MEDS: cefTRIAXone 1 GM in Sodium Chloride 0.9% 100 ML IV SCH (14:09)
[2017-01-14] MEDS: Levalbuterol HCl 1.25 MG/3 ML Neb NEB SCH ×3 (14:36→21:19)
[2017-01-15] MEDS: LORazepam 2 MG/ML MDV IVPUSH SCH ×2 (00:36→05:06)
[2017-01-15] MEDS: Morphine 2 MG/ML Syringe IVPUSH PRN ×3 (00:56→06:38)
[2017-01-15] MEDS: LORazepam 2 MG/ML MDV IVPUSH PRN ×2 (01:32→02:45)
[2017-01-15] MEDS: hydrALAZINE 20 MG/ML SDV IVPUSH PRN ×6 (02:06→21:32)
[2017-01-15] MEDS: Metoprolol Tartrate 5 MG/5 ML SDV IVPUSH PRN ×5 (02:31→21:35)
[2017-01-15] MEDS: Levalbuterol HCl 1.25 MG/3 ML Neb NEB SCH ×6 (02:34→21:24)
[2017-01-15] MEDS: Insulin Aspart 100 Units/ML 3 ML Pen SUBCUT SCH ×3 (04:35→18:07)
[2017-01-15] MEDS: Pantoprazole 40 MG Vial IVPUSH SCH (08:13)
[2017-01-15] MEDS: Insulin Detemir 100 Units/ML 3 ML Pen SUBCUT SCH ×2 (08:19→21:15)
[2017-01-15] MEDS ORDERED: Furosemide 40 MG/4 ML VIAL IVPUSH ONE (09:16)
[2017-01-15] MEDS ORDERED: LORazepam 2 MG/ML MDV IVPUSH PRN (09:20)
--- NOTE | 2017-01-15 12:56 | PCM.PN ---
- General Info Date of Service: 01/15/17 Admission Dx/Problem (Free Text): Admission Diagnosis/Problem Admission Diagnosis/Problem Altered mental status Subjective Update: Patient seen and examined bedside with the nurse. No change in condition the patient appears to be resting comfortably. Vitals appear to be stable at this time. - Review of Systems Systems Review Comment:: Unable to obtain as patient is still obtunded - Patient Data Vitals - Most Recent: Last Vital Signs Temp 99.0 F 01/15/17 11:42 Pulse 104 H 01/15/17 11:42 Resp 19 01/15/17 11:42 BP 168/96 H 01/15/17 11:42 Pulse Ox 94 L 01/15/17 11:42 Weight - Most Recent: 90.945 kg I&O - Last 24 Hours: Intake & Output 01/14/17 01/15/17 01/15/17 22:59 06:59 14:59 Intake Total 2139 1126 Output Total 8498 377 7239 Balance 984 721 -1775 Lab Results Last 24 Hours: Laboratory Results - last 24 hr 01/14/17 01/14/17 01/15/17 Range/Units 16:55 21:43 04:31 POC Glucose 176 H 186 H 190 H (70-105) mg/dL Creatine Kinase (26-192) U/L NT-Pro-B Natriuret Pep (0-125) pg/mL 01/15/17 Range/Units 11:21 POC Glucose (70-105) mg/dL Creatine Kinase 2631 H (26-192) U/L NT-Pro-B Natriuret Pep 9394 H (0-125) pg/mL Shawn Results Last 24 Hours: Microbiology 01/13/17 14:33 Stool Culture - Preliminary Stool / Feces - Final - Final Med Orders - Current: Current Medications Dextrose/Water (Dextrose 50% In Water) 50 ml IVPUSH ASDIRECTED PRN PRN Reason: hypoglycemia Hydralazine HCl (Apresoline) 10 mg IVPUSH Q2H PRN PRN Reason: Hypertension Last Admin: 01/15/17 11:44 Dose: 10 mg Ceftriaxone Sodium 1 gm/ (Sodium Chloride) 100 mls @ 200 mls/hr IV Q24H [facility] Last Admin: 01/14/17 14:09 Dose: 200 mls/hr Sodium Chloride (Normal Saline) 1,000 mls @ 100 mls/hr IV ASDIRECTED [facility] Last Admin: 01/14/17 22:26 Dose: 100 mls/hr Insulin Aspart (Novolog) 0 unit SUBCUT Q6H [facility] PRN Reason: Protocol Last Admin: 01/15/17 11:53 Dose: Not Given Insulin Detemir (Levemir) 10 unit SUBCUT BID [facility] Last Admin: 01/15/17 08:19 Dose: 10 units Levalbuterol HCl (Xopenex) 1.25 mg NEB Q4HRRT [facility] Last Admin: 01/15/17 10:13 Dose: 1.25 mg Lorazepam (Ativan) 0 mg IVPUSH ASDIRECTED PRN; Protocol PRN Reason: withdrawal Magnesium Sulfate (Pharmacy To Dose - Magnesium Replacement) 1 dose .XX ASDIRECTED PRN PRN Reason: RX to Dose Metoprolol Tartrate (Lopressor) 5 mg IVPUSH Q4H PRN PRN Reason: Tachycardia Last Admin: 01/15/17 11:08 Dose: 5 mg Morphine Sulfate (Morphine) 2 mg IVPUSH Q2H PRN PRN Reason: pain, NVPS agitation Last Admin: 01/15/17 06:38 Dose: 2 mg Pantoprazole Sodium (Protonix Iv) 40 mg IVPUSH DAILY [facility] Last Admin: 01/15/17 08:13 Dose: 40 mg Potassium Chloride (Pharmacy To Dose - Potassium Replacement) 1 dose .XX ASDIRECTED [facility] Sodium Chloride (Saline Flush) 10 ml FLUSH ASDIRECTED PRN PRN Reason: Keep Vein Open Last Admin: 01/14/17 19:53 Dose: 10 ml Discontinued Medications Albuterol/Ipratropium (Duoneb 3.0-0.5 Mg/3 Ml) 3 ml NEB Q4HRRT [facility] Last Admin: 01/14/17 09:58 Dose: 3 ml Albuterol/Ipratropium (Duoneb 3.0-0.5 Mg/3 Ml) Confirm Administered Dose 3 ml .ROUTE .STK-MED ONE Stop: 01/13/17 08:53 Last Admin: 01/13/17 09:03 Dose: Not Given Clonidine HCl (Catapres) 0.1 mg PO Q4H PRN PRN Reason: Agitation Diphenhydramine HCl (Benadryl) 50 mg IVPUSH ONETIME ONE Stop: 01/10/17 21:57 Last Admin: 01/10/17 22:28 Dose: 50 mg Famotidine (Pepcid) 20 mg IVPUSH ONETIME ONE Stop: 01/10/17 22:12 Last Admin: 01/10/17 22:28 Dose: 20 mg Famotidine (Pepcid) 20 mg PO DAILY [facility] Last Admin: 01/11/17 10:31 Dose: Not Given Folic Acid (Folic Acid) 1 mg PO DAILY [facility] Last Admin: 01/11/17 10:31 Dose: Not Given Furosemide (Lasix) 20 mg IVPUSH NOW ONE Stop: 01/13/17 10:43 Last Admin: 01/13/17 10:56 Dose: 20 mg Furosemide (Lasix) 40 mg IVPUSH NOW ONE Stop: 01/14/17 11:38 Last Admin: 01/14/17 11:51 Dose: 40 mg Furosemide (Lasix) 40 mg IVPUSH NOW ONE Stop: 01/15/17 09:17 Last Admin: 01/15/17 09:27 Dose: 40 mg Hydralazine HCl (Apresoline) 20 mg PO Q6H PRN PRN Reason: Hypertension Sodium Chloride (Normal Saline) 1,000 mls @ 999 mls/hr IV ONETIME ONE Stop: 01/10/17 19:40 Last Admin: 01/10/17 18:52 Dose: 999 mls/hr Ceftriaxone Sodium 1 gm/ (Sodium Chloride) 100 mls @ 200 mls/hr IV ONETIME ONE Stop: 01/10/17 20:15 Last Admin: 01/10/17 19:59 Dose: 200 mls/hr Magnesium Sulfate 2 gm/ Premix 50 mls @ 25 mls/hr IV ONETIME ONE Stop: 01/10/17 21:46 Last Admin: 01/10/17 21:08 Dose: 25 mls/hr Sodium Chloride (Normal Saline) 1,000 mls @ 250 mls/hr IV ASDIRECTED [facility] Last Admin: 01/11/17 13:27 Dose: 250 mls/hr Sodium Chloride (Normal Saline) 1,000 mls @ 999 mls/hr IV ASDIRECTED [facility] Last Admin: 01/10/17 22:19 Dose: 999 mls/hr Sodium Chloride (Normal Saline) 1,000 mls @ 999 mls/hr IV ONETIME ONE Stop: 01/10/17 22:46 Last Admin: 01/10/17 22:18 Dose: 999 mls/hr Thiamine HCl 200 mg/ Sodium (Chloride) 102 mls @ 204 mls/hr IV ONETIME ONE Stop: 01/10/17 21:55 Last Admin: 01/10/17 22:39 Dose: 204 mls/hr Magnesium Sulfate 2 gm/ Premix 50 mls @ 25 mls/hr IV ONETIME ONE Stop: 01/11/17 00:13 Last Admin: 01/10/17 23:31 Dose: 25 mls/hr Levofloxacin/Dextrose 250 mg/ (Premix) 50 mls @ 50 mls/hr IV ONETIME ONE Stop: 01/10/17 23:15 Last Admin: 01/11/17 00:28 Dose: 50 mls/hr Dextrose/Sodium Chloride (Dextrose 5%-Normal Saline) 1,000 mls @ 150 mls/hr IV ASDIRECTED [facility] Last Admin: 01/12/17 07:24 Dose: 150 mls/hr Magnesium Sulfate/Dextrose 1 (gm/ Premix) 100 mls @ 100 mls/hr IV Q1H [facility] Stop: 01/12/17 10:59 Last Admin: 01/12/17 10:41 Dose: 100 mls/hr Dextrose/Sodium Chloride (Dextrose 5%-1/2 Ns) 1,000 mls @ 125 mls/hr IV ASDIRECTED [facility] Last Admin: 01/13/17 06:45 Dose: 125 mls/hr Magnesium Sulfate/Dextrose 1 (gm/ Premix) 100 mls @ 100 mls/hr IV Q1H [facility] Stop: 01/13/17 10:59 Potassium Chloride 10 meq/ (Premix) 100 mls @ 100 mls/hr IV Q1H [facility] Stop: 01/13/17 14:59 Last Admin: 01/13/17 13:08 Dose: 100 mls/hr Magnesium Sulfate 2 gm/ Premix 50 mls @ 25 mls/hr IV ONETIME ONE Stop: 01/13/17 10:41 Last Admin: 01/13/17 08:46 Dose: 25 mls/hr Magnesium Sulfate (Magnesium Sulfate 2 Gm In Water 50 Ml) Confirm Administered Dose 50 mls @ as directed .ROUTE .STK-MED ONE Stop: 01/13/17 08:43 Last Admin: 01/13/17 08:59 Dose: Not Given Sodium Chloride (Normal Saline) 1,000 mls @ 125 mls/hr IV ASDIRECTED [facility] Last Admin: 01/13/17 14:37 Dose: 125 mls/hr Sodium Chloride (Normal Saline) 1,000 mls @ 200 mls/hr IV ASDIRECTED [facility] Last Infusion: 01/14/17 12:40 Dose: 100 mls/hr Potassium Chloride 10 meq/ (Premix) 100 mls @ 100 mls/hr IV Q1H [facility] Stop: 01/14/17 16:29 Last Admin: 01/14/17 16:17 Dose: 100 mls/hr Magnesium Sulfate 4 gm/ Premix 100 mls @ 25 mls/hr IV ONETIME [facility] Stop: 01/14/17 12:29 Last Admin: 01/14/17 08:48 Dose: 25 mls/hr Insulin Aspart (Novolog) 0 unit SUBCUT Q6HR [facility] PRN Reason: Protocol Last Admin: 01/11/17 12:06 Dose: Not Given Insulin Aspart (Novolog) 0 unit SUBCUT QIDACANDBED [facility] PRN Reason: Protocol Last Admin: 01/12/17 16:56 Dose: 4 units Insulin Aspart (Novolog) 0 unit SUBCUT Q6HR [facility] PRN Reason: Protocol Last Admin: 01/13/17 00:05 Dose: Not Given Insulin Aspart (Novolog) 0 unit SUBCUT Q6H [facility] PRN Reason: Protocol Last Admin: 01/15/17 04:35 Dose: 3 units Insulin Detemir (Levemir) 10 unit SUBCUT BEDTIME [facility] Last Admin: 01/12/17 21:28 Dose: 10 units Lorazepam (Ativan) 1 - 3 mg IVPUSH Q4H PRN; Protocol PRN Reason: withdrawal Last Admin: 01/11/17 21:44 Dose: 1 mg Lorazepam (Ativan) 2 mg IVPUSH Q4H PRN PRN Reason: Seizures Last Admin: 01/13/17 13:55 Dose: 2 mg Lorazepam (Ativan) 1 - 3 mg IVPUSH ASDIRECTED PRN; Protocol PRN Reason: withdrawal Last Admin: 01/15/17 02:45 Dose: 2 mg Lorazepam (Ativan) 4 mg IVPUSH Q6H [facility] Last Admin: 01/15/17 05:06 Dose: 4 mg Lorazepam (Ativan) 4 mg IVPUSH Q2H PRN PRN Reason: severe agitation/withdrawl Last Admin: 01/14/17 01:42 Dose: 4 mg Magnesium Sulfate (Pharmacy To Dose - Magnesium Replacement) 1 dose .XX ASDIRECTED [facility] Sodium Chloride (Saline Flush) 10 ml FLUSH ASDIRECTED PRN PRN Reason: Keep Vein Open Last Admin: 01/12/17 22:52 Dose: 10 ml Topiramate (Topamax) 25 mg PO BID [facility] Last Admin: 01/11/17 12:19 Dose: Not Given - Exam General: Obtunded HEENT: Pupils Equal, Pupils Reactive, EOMI, Mucous Membr. Moist/[place] Neck: Supple Lungs: Rales, Rhonchi, Wheezing Cardiovascular: Regular Rate, Regular Rhythm GI/Abdominal Exam: Normal Bowel Sounds, Soft, Non-Tender, No Organomegaly, No Distention, No Abnormal Bruit, No Mass, Pelvis Stable (Female) Exam: Deferred Back Exam: Normal Inspection Extremities: Normal Inspection, Normal Range of Motion, Non-Tender, No Pedal Edema, Normal Capillary Refill Peripheral Pulses: 2+: Carotid (L), Carotid (R), Brachial (L), Brachial (R), Radial (L), Radial (R), Femoral (L), Femoral (R), Popliteal (L), Popliteal (R), Posterior Tibial (L), Posterior Tibial (R), Dorsalis Pedis (L), Dorsalis Pedis ( R) Skin: Warm, Dry, Other (Stage I decubitus ulcer noted) Neurological: Other (Patient is able to move all limbs) Psy/Mental Status: Agitated, Withdrawal Symptoms - Problem List & Annotations (1) Withdrawal symptoms, drug or narcotic SNOMED Code(s): 160496631 Code(s): F19.939 - OTHER PSYCHOACTIVE SUBSTANCE USE, UNSP WITH WITHDRAWAL, UNSP Status: Acute Priority: High Current Visit: Yes (2) Overdose SNOMED Code(s): 76906696 Code(s): T50.901A - POISONING BY UNSP DRUG/MEDS/BIOL SUBST, ACCIDENTAL, INIT Status: Acute Priority: High Current Visit: Yes Qualifiers: Encounter type: initial encounter Injury intent: undetermined intent Qualified Code(s): T50.904A - Poisoning by unspecified drugs, medicaments and biological substances, undetermined, initial encounter (3) Altered mental status SNOMED Code(s): 460408392 Code(s): R41.82 - ALTERED MENTAL STATUS, UNSPECIFIED Status: Acute Priority: High Current Visit: Yes Qualifiers: Altered mental status type: somnolence Qualified Code(s): R40.0 - Somnolence (4) Escherichia coli urinary tract infection SNOMED Code(s): 861004435 Code(s): N39.0 - URINARY TRACT INFECTION, SITE NOT SPECIFIED; B96.20 - UNSP ESCHERICHIA COLI THE CAUSE OF DISEASES CLASSD ELSWHR Status: Acute Priority: High Current Visit: Yes (5) Rhabdomyolysis SNOMED Code(s): 259026024 Code(s): M62.82 - RHABDOMYOLYSIS Status: Acute Priority: High Current Visit: Yes Qualifiers: Rhabdomyolysis type: non-traumatic Qualified Code(s): M62.82 - Rhabdomyolysis (6) Anemia SNOMED Code(s): 872867363 Code(s): D64.9 - ANEMIA, UNSPECIFIED Status: Acute Current Visit: Yes Qualifiers: Anemia type: unspecified type Qualified Code(s): D64.9 - Anemia, unspecified Annotation/Comment:: Possibly dilutional (7) Thrombocytopenia SNOMED Code(s): 798040360 Code(s): D69.6 - THROMBOCYTOPENIA, UNSPECIFIED Status: Chronic Current Visit: Yes (8) Metabolic acidosis with normal anion gap and failure of bicarbonate regeneration SNOMED Code(s): 73243768 Code(s): E87.2 - ACIDOSIS Status: Acute Priority: Medium Current Visit : Yes (9) Alcohol abuse SNOMED Code(s): 38972678 Code(s): F10.10 - ALCOHOL ABUSE, UNCOMPLICATED Status: Acute Priority: Medium Current Visit: Yes - Problem List Review Problem List Initiated/Reviewed/Updated: Yes - My Orders Last 24 Hours: My Active Orders 01/14/17 12:45 Sodium Chloride 0.9% [Normal Saline] 1,000 ml IV ASDIRECTED 01/14/17 14:00 Levalbuterol HCl [Xopenex] 1.25 mg NEB Q4HRRT 01/14/17 14:05 CALCIUM, IONIZED [REF] Stat 01/15/17 09:20 LORazepam [Ativan] See Protocol IVPUSH ASDIRECTED PRN 01/15/17 12:00 Insulin Aspart [NovoLOG] 0 unit SUBCUT Q6H - Assessment Assessment:: 1. Suicidal attempts with prescription drug overdose. 2. Acute withdrawal syndrome. 3. Altered mental status due to obtundation/sedation. 4. Urinary tract infection due to Escherichia coli. 5. Rhabdomyolysis. 6. Pneumonia versus atelectasis versus pulmonary vascular congestion. - Plan Plan:: 1. Continue ICU management. 2. We'll discontinue IV fluid hydration as CPK level has reduced considerably. We'll give IV fluid boluses as needed. 3. IV Lasix 40 mg twice daily. 4. Bronchodilator therapy with Xopenex every 4 hours as needed. Respiratory therapy evaluation and treatment. 5. Oxygen supplementation therapy to maintain oxygen saturation above 90%. 6. Continue IV antibiotic therapy with Rocephin and add azithromycin 500 mg twice daily. 7. Continue CIWA protocol according to CIWA scale with Ativan according to protocol. We'll attempt to safely awaken patient today. 8. DVT prophylaxis with MJ hose. Pharmacologic anticoagulation contraindicated as patient has thrombocytopenia from chronic alcohol use. 9. Substance abuse counseling and psychiatry consults in the chart for when patient is stable. 10. Social service evaluation for discharge planning.
[2017-01-15] MEDS: cefTRIAXone 1 GM in Sodium Chloride 0.9% 100 ML IV SCH (13:10)
[2017-01-15] MEDS: Azithromycin 500 MG in Sodium Chloride 0.9% 250 ML IV SCH (13:48)
[2017-01-15] MEDS: Furosemide 40 MG/4 ML VIAL IVPUSH SCH ×2 (15:54→21:15)
[2017-01-15] MEDS: Sodium Chloride 0.9% 1,000 ML IV SCH (16:00)
[2017-01-16] MEDS: hydrALAZINE 20 MG/ML SDV IVPUSH PRN ×4 (00:04→22:06)
[2017-01-16] MEDS: Morphine 2 MG/ML Syringe IVPUSH PRN ×4 (00:20→22:38)
[2017-01-16] MEDS: Insulin Aspart 100 Units/ML 3 ML Pen SUBCUT SCH ×4 (00:42→18:24)
[2017-01-16] MEDS: Levalbuterol HCl 1.25 MG/3 ML Neb NEB SCH ×7 (01:44→22:38)
[2017-01-16] MEDS ORDERED: Magnesium Sulfate/Water 2 GM in Premix Bag 1 BAG IV ONE ×2 (04:43→11:15)
[2017-01-16] MEDS: Potassium Chloride 10 MEQ in Premix Bag 1 BAG IV SCH ×7 (05:18→23:38)
[2017-01-16] MEDS: Dextrose 5% in Water 1,000 ML IV SCH ×2 (05:59→22:00)
--- NOTE | 2017-01-16 06:13 | PCM.SN ---
- Free Text/Narrative Note: I was called in to see the patient at about 4 AM this morning as the nurse reported the patient's had a right facial droop and was not moving the right side of the body and also was not responding to pain. Laboratory investigations obtained showed the patient's had a high sodium level of 152, hypokalemia with potassium of 3.0, magnesium of 0.9. Vital signs showed a blood pressure of 127/ 78 milligrams as omega-3 heart rate of 99, respiratory rate of 18 and oxygen saturation of 95% on 2 L of oxygen via nasal cannula. A CT scan of the head without contrast was requested to rule out any acute intracranial pathology. The results of the CT scan showed no CT evidence of acute stroke. It did show chronic age-related changes but no evidence of acute intracranial pathology. I then placed a call to the neurologist regional sales associate, Dr. Connolly and after discussing the case with him and he recommended that we get an MRI as well as EEG and call him back with the results. He also agreed with correcting the electrolytes imbalance and to continue observing the patient. At this time patient is resting in bed although she is unable to respond to verbal or tactile stimuli.
--- NOTE | 2017-01-16 06:26 | CR ---
Chest: Frontal view of the chest was obtained. Comparison: Prior chest x-ray of 01/14/17. Slight increased density within the right upper chest is seen which is fairly stable from most recent study. Left lung appears better aerated from prior exam but central lung markings remain increased on the left side. Heart size and mediastinum are normal. Bony structures are unremarkable. Surgical material is seen within the upper abdomen. Impression: 1. Chest slightly improved on the left side. Other portions of the chest remain stable. Diagnostic code #3
--- NOTE | 2017-01-16 08:21 | CT ---
Head CT Technique: Multiple axial sections through the brain were obtained. Comparison: Prior head CT study of 01/10/17. Findings: Ventricles along with basal cisterns and sulci over the convexities are within normal limits for the patient's age. No abnormal parenchymal densities are seen. No evidence of intracranial hemorrhage. No midline shift or mass effect is seen. Slight atherosclerotic calcification is seen within the carotid siphon. Bone window settings were reviewed which show moderate mucosal thickening within the right maxillary sinus as well as mucosal thickening within the ethmoid and frontal sinuses. Mild mucosal thickening also seen within the sphenoid sinus. Sinus findings were noted on previous exam but findings have slightly worsened. Impression: 1. No acute intracranial abnormality is definitely appreciated. 2. Sinus findings which have worsened from prior exam and please correlate if sinus findings are chronic or acute on chronic. Diagnostic code #3 Agree with preliminary report issued by [facility] ([facility] preliminary report dictated on 01/16/17, 6:22 AM Central Time)
[2017-01-16] MEDS: Furosemide 40 MG/4 ML VIAL IVPUSH SCH ×2 (09:35→21:54)
[2017-01-16] MEDS: Pantoprazole 40 MG Vial IVPUSH SCH (09:36)
--- NOTE | 2017-01-16 09:54 | MR ---
MRI brain Technique: T1 sagittal; T2, T2 FLAIR, T1 and diffusion axial; T1 FLAIR coronal images were also obtained through the brain. Comparison: Previous head CT exam performed on the same day. Findings: Motion artifact is seen throughout the exam. Ventricles along with basal cisterns are sulci over the convexities are within normal limits for the patient's age. Normal signal void is seen within the major cerebral arteries within the skull base. Sinus disease is seen as described on recent head CT exam. No abnormal signal is appreciated within the brain parenchyma. There are no definite acute diffusion abnormalities being seen. Impression: 1. Significant motion artifact. Within this limitation, sinus disease is seen as noted on recent CT exam. 2. No additional abnormality is appreciated on MRI study of the brain. No acute diffusion abnormalities are seen. Diagnostic code #2
[2017-01-16] MEDS ORDERED: LYTES IV SCH ×2 (10:00)
[2017-01-16] MEDS ORDERED: D10 IV SCH ×2 (10:00)
[2017-01-16] MEDS: Insulin Detemir 100 Units/ML 3 ML Pen SUBCUT SCH ×2 (10:00→21:55)
[2017-01-16] MEDS ORDERED: [UNRECOGNIZED DRUG - OTHER] IV SCH ×2 (10:00)
[2017-01-16] MEDS ORDERED: MVI IV SCH ×2 (10:00)
[2017-01-16] MEDS ORDERED: VITAMIN K IV SCH ×2 (10:00)
[2017-01-16] MEDS ORDERED: CALCIUM IV SCH ×2 (10:00)
[2017-01-16] MEDS ORDERED: Fat Emulsion 500 ML IV SCH (12:00)
[2017-01-16] MEDS: Enoxaparin 40 MG/0.4 ML Syringe SUBCUT SCH (12:42)
--- NOTE | 2017-01-16 13:16 | PCM.PN ---
- General Info Date of Service: 01/16/17 Subjective Update: No meaningful interactive activity, currently obtunded. CVA work up in progress ; family updated during rounds Functional Status: Reports: Urinating - Review of Systems General: Reports: No Symptoms HEENT: Reports: No Symptoms Pulmonary: Reports: No Symptoms Cardiovascular: Reports: No Symptoms Gastrointestinal: Reports: No Symptoms Genitourinary: Reports: No Symptoms Musculoskeletal: Reports: No Symptoms Skin: Reports: No Symptoms Neurological: Reports: No Symptoms Psychiatric: Reports: No Symptoms - Patient Data Vitals - Most Recent: Last Vital Signs Temp 37.3 C 01/16/17 12:00 Pulse 102 H 01/16/17 08:00 Resp 18 01/16/17 12:00 BP 144/78 H 01/16/17 12:00 Pulse Ox 93 L 01/16/17 12:00 Weight - Most Recent: 86.727 kg I&O - Last 24 Hours: Intake & Output 01/15/17 01/16/17 01/16/17 22:59 06:59 14:59 Intake Total 1227 Output Total 3035 810 420 Balance -1808 -810 -420 Lab Results Last 24 Hours: Laboratory Results - last 24 hr 01/15/17 01/15/17 01/15/17 Range/Units 11:52 17:48 21:17 WBC (3.98-10.04) K/mm3 RBC (3.98-5.22) M/mm3 Hgb (11.2-15.7) gm/L Hct (34.1-44.9) % MCV (79.4-94.8) fl MCH (25.6-32.2) pg MCHC (32.2-35.5) g/dl RDW Std Deviation (36.4-46.3) fL Plt Count (182-369) K/mm3 MPV (9.4-12.3) fl Neut % (Auto) (34.0-71.1) % Lymph % (Auto) (19.3-51.7) % Robeson % (Auto) (4.7-12.5) % Eos % (Auto) (0.7-5.8) Baso % (Auto) (0.1-1.2) % Neut # (Auto) (1.56-6.13) K/mm3 Lymph # (Auto) (1.18-3.74) K/mm3 Robeson # (Auto) (0.24-0.36) K/mm3 Eos # (Auto) (0.04-0.36) K/mm3 Baso # (Auto) (0.01-0.08) K/mm3 Manual Slide Review D-Dimer, Quantitative (0.19-0.59) mg/L Puncture Site ABG pH (7.35-7.45) ABG pCO2 (35.0-45.0) mmHg ABG pO2 (80.0-100.0) mmHg ABG HCO3 (22.0-26.0) meq/L ABG O2 Saturation (96.0-97.0) % ABG Base Excess (-2-2.0) A-a Gradient mmHg O2 Delivery Device Oxygen Flow Rate FiO2 (21.00-100.00) % Sodium (136-145) mEq/L Potassium (3.5-5.1) mEq/L Chloride (98-107) mEq/L Carbon Dioxide (21-32) mEq/L Anion Gap (5-15) BUN (7-18) mg/dL Creatinine (0.55-1.02) mg/dL Est Cr Clr Drug Dosing mL/min Estimated GFR (MDRD) (>60) mL/min BUN/Creatinine Ratio (14-18) Glucose (74-106) mg/dL POC Glucose 143 H 104 117 H (70-105) mg/dL Calcium (8.5-10.1) mg/dL Phosphorus (2.6-4.7) mg/dL Magnesium (1.8-2.4) mg/dl Total Bilirubin (0.2-1.0) mg/dL AST (15-37) U/L ALT (14-59) U/L Alkaline Phosphatase (46-116) U/L Ammonia (11-32) umol/L Creatine Kinase (26-192) U/L NT-Pro-B Natriuret Pep (0-125) pg/mL Total Protein (6.4-8.2) g/dl Albumin (3.4-5.0) g/dl Globulin gm/dL Albumin/Globulin Ratio (1-2) 01/16/17 01/16/17 01/16/17 Range/Units 00:22 02:55 02:55 WBC 4.33 (3.98-10.04) K/mm3 RBC 2.67 L (3.98-5.22) M/mm3 Hgb 9.6 L (11.2-15.7) gm/L Hct 29.6 L (34.1-44.9) % MCV 110.9 H (79.4-94.8) fl MCH 36.0 H (25.6-32.2) pg MCHC 32.4 (32.2-35.5) g/dl RDW Std Deviation 50.5 H (36.4-46.3) fL Plt Count 104 L (182-369) K/mm3 MPV 10.4 (9.4-12.3) fl Neut % (Auto) 64.3 (34.0-71.1) % Lymph % (Auto) 19.4 (19.3-51.7) % Robeson % (Auto) 12.5 (4.7-12.5) % Eos % (Auto) 1.2 (0.7-5.8) Baso % (Auto) 1.2 (0.1-1.2) % Neut # (Auto) 2.79 (1.56-6.13) K/mm3 Lymph # (Auto) 0.84 L (1.18-3.74) K/mm3 Robeson # (Auto) 0.54 H (0.24-0.36) K/mm3 Eos # (Auto) 0.05 (0.04-0.36) K/mm3 Baso # (Auto) 0.05 (0.01-0.08) K/mm3 Manual Slide Review Abnormal smear D-Dimer, Quantitative (0.19-0.59) mg/L Puncture Site ABG pH (7.35-7.45) ABG pCO2 (35.0-45.0) mmHg ABG pO2 (80.0-100.0) mmHg ABG HCO3 (22.0-26.0) meq/L ABG O2 Saturation (96.0-97.0) % ABG Base Excess (-2-2.0) A-a Gradient mmHg O2 Delivery Device Oxygen Flow Rate FiO2 (21.00-100.00) % Sodium 152 H (136-145) mEq/L Potassium 3.0 L (3.5-5.1) mEq/L Chloride 110 H (98-107) mEq/L Carbon Dioxide 28 (21-32) mEq/L Anion Gap 17.0 H (5-15) BUN 10 (7-18) mg/dL Creatinine 1.0 (0.55-1.02) mg/dL Est Cr Clr Drug Dosing 68.77 mL/min Estimated GFR (MDRD) 58 (>60) mL/min BUN/Creatinine Ratio 10.0 L (14-18) Glucose 146 H (74-106) mg/dL POC Glucose 146 H (70-105) mg/dL Calcium 8.3 L (8.5-10.1) mg/dL Phosphorus (2.6-4.7) mg/dL Magnesium 0.9 L (1.8-2.4) mg/dl Total Bilirubin 0.7 (0.2-1.0) mg/dL AST 83 H (15-37) U/L ALT 141 H (14-59) U/L Alkaline Phosphatase 80 (46-116) U/L Ammonia (11-32) umol/L Creatine Kinase (26-192) U/L NT-Pro-B Natriuret Pep (0-125) pg/mL Total Protein 6.0 L (6.4-8.2) g/dl Albumin 2.1 L (3.4-5.0) g/dl Globulin 3.9 gm/dL Albumin/Globulin Ratio 0.5 L (1-2) 01/16/17 01/16/17 01/16/17 Range/Units 02:55 02:55 05:49 WBC (3.98-10.04) K/mm3 RBC (3.98-5.22) M/mm3 Hgb (11.2-15.7) gm/L Hct (34.1-44.9) % MCV (79.4-94.8) fl MCH (25.6-32.2) pg MCHC (32.2-35.5) g/dl RDW Std Deviation (36.4-46.3) fL Plt Count (182-369) K/mm3 MPV (9.4-12.3) fl Neut % (Auto) (34.0-71.1) % Lymph % (Auto) (19.3-51.7) % Robeson % (Auto) (4.7-12.5) % Eos % (Auto) (0.7-5.8) Baso % (Auto) (0.1-1.2) % Neut # (Auto) (1.56-6.13) K/mm3 Lymph # (Auto) (1.18-3.74) K/mm3 Robeson # (Auto) (0.24-0.36) K/mm3 Eos # (Auto) (0.04-0.36) K/mm3 Baso # (Auto) (0.01-0.08) K/mm3 Manual Slide Review D-Dimer, Quantitative 2.73 H (0.19-0.59) mg/L Puncture Site Rt brachial ABG pH 7.44 (7.35-7.45) ABG pCO2 41.5 (35.0-45.0) mmHg ABG pO2 71.0 L (80.0-100.0) mmHg ABG HCO3 27.8 H (22.0-26.0) meq/L ABG O2 Saturation 92.6 L (96.0-97.0) % ABG Base Excess 3.8 H (-2-2.0) A-a Gradient 56 mmHg O2 Delivery Device Nasal cannula Oxygen Flow Rate 2.0 FiO2 28.00 (21.00-100.00) % Sodium (136-145) mEq/L Potassium (3.5-5.1) mEq/L Chloride (98-107) mEq/L Carbon Dioxide (21-32) mEq/L Anion Gap (5-15) BUN (7-18) mg/dL Creatinine (0.55-1.02) mg/dL Est Cr Clr Drug Dosing mL/min Estimated GFR (MDRD) (>60) mL/min BUN/Creatinine Ratio (14-18) Glucose (74-106) mg/dL POC Glucose (70-105) mg/dL Calcium (8.5-10.1) mg/dL Phosphorus (2.6-4.7) mg/dL Magnesium (1.8-2.4) mg/dl Total Bilirubin (0.2-1.0) mg/dL AST (15-37) U/L ALT (14-59) U/L Alkaline Phosphatase (46-116) U/L Ammonia 12 (11-32) umol/L Creatine Kinase (26-192) U/L NT-Pro-B Natriuret Pep (0-125) pg/mL Total Protein (6.4-8.2) g/dl Albumin (3.4-5.0) g/dl Globulin gm/dL Albumin/Globulin Ratio (1-2) 01/16/17 01/16/17 01/16/17 Range/Units 06:28 09:59 11:33 WBC (3.98-10.04) K/mm3 RBC (3.98-5.22) M/mm3 Hgb (11.2-15.7) gm/L Hct (34.1-44.9) % MCV (79.4-94.8) fl MCH (25.6-32.2) pg MCHC (32.2-35.5) g/dl RDW Std Deviation (36.4-46.3) fL Plt Count (182-369) K/mm3 MPV (9.4-12.3) fl Neut % (Auto) (34.0-71.1) % Lymph % (Auto) (19.3-51.7) % Robeson % (Auto) (4.7-12.5) % Eos % (Auto) (0.7-5.8) Baso % (Auto) (0.1-1.2) % Neut # (Auto) (1.56-6.13) K/mm3 Lymph # (Auto) (1.18-3.74) K/mm3 Robeson # (Auto) (0.24-0.36) K/mm3 Eos # (Auto) (0.04-0.36) K/mm3 Baso # (Auto) (0.01-0.08) K/mm3 Manual Slide Review D-Dimer, Quantitative (0.19-0.59) mg/L Puncture Site ABG pH (7.35-7.45) ABG pCO2 (35.0-45.0) mmHg ABG pO2 (80.0-100.0) mmHg ABG HCO3 (22.0-26.0) meq/L ABG O2 Saturation (96.0-97.0) % ABG Base Excess (-2-2.0) A-a Gradient mmHg O2 Delivery Device Oxygen Flow Rate FiO2 (21.00-100.00) % Sodium 150 H (136-145) mEq/L Potassium 3.6 (3.5-5.1) mEq/L Chloride 108 H (98-107) mEq/L Carbon Dioxide 27 (21-32) mEq/L Anion Gap 18.6 H (5-15) BUN 13 (7-18) mg/dL Creatinine 0.9 (0.55-1.02) mg/dL Est Cr Clr Drug Dosing 76.42 mL/min Estimated GFR (MDRD) > 60 (>60) mL/min BUN/Creatinine Ratio 14.4 (14-18) Glucose 224 H (74-106) mg/dL POC Glucose 140 H 208 H (70-105) mg/dL Calcium 8.4 L (8.5-10.1) mg/dL Phosphorus (2.6-4.7) mg/dL Magnesium (1.8-2.4) mg/dl Total Bilirubin (0.2-1.0) mg/dL AST (15-37) U/L ALT (14-59) U/L Alkaline Phosphatase (46-116) U/L Ammonia (11-32) umol/L Creatine Kinase (26-192) U/L NT-Pro-B Natriuret Pep (0-125) pg/mL Total Protein (6.4-8.2) g/dl Albumin (3.4-5.0) g/dl Globulin gm/dL Albumin/Globulin Ratio (1-2) 01/16/17 01/16/17 01/16/17 Range/Units 11:33 11:33 12:46 WBC (3.98-10.04) K/mm3 RBC (3.98-5.22) M/mm3 Hgb (11.2-15.7) gm/L Hct (34.1-44.9) % MCV (79.4-94.8) fl MCH (25.6-32.2) pg MCHC (32.2-35.5) g/dl RDW Std Deviation (36.4-46.3) fL Plt Count (182-369) K/mm3 MPV (9.4-12.3) fl Neut % (Auto) (34.0-71.1) % Lymph % (Auto) (19.3-51.7) % Robeson % (Auto) (4.7-12.5) % Eos % (Auto) (0.7-5.8) Baso % (Auto) (0.1-1.2) % Neut # (Auto) (1.56-6.13) K/mm3 Lymph # (Auto) (1.18-3.74) K/mm3 Robeson # (Auto) (0.24-0.36) K/mm3 Eos # (Auto) (0.04-0.36) K/mm3 Baso # (Auto) (0.01-0.08) K/mm3 Manual Slide Review D-Dimer, Quantitative (0.19-0.59) mg/L Puncture Site ABG pH (7.35-7.45) ABG pCO2 (35.0-45.0) mmHg ABG pO2 (80.0-100.0) mmHg ABG HCO3 (22.0-26.0) meq/L ABG O2 Saturation (96.0-97.0) % ABG Base Excess (-2-2.0) A-a Gradient mmHg O2 Delivery Device Oxygen Flow Rate FiO2 (21.00-100.00) % Sodium (136-145) mEq/L Potassium (3.5-5.1) mEq/L Chloride (98-107) mEq/L Carbon Dioxide (21-32) mEq/L Anion Gap (5-15) BUN (7-18) mg/dL Creatinine (0.55-1.02) mg/dL Est Cr Clr Drug Dosing mL/min Estimated GFR (MDRD) (>60) mL/min BUN/Creatinine Ratio (14-18) Glucose (74-106) mg/dL POC Glucose 236 H (70-105) mg/dL Calcium (8.5-10.1) mg/dL Phosphorus 2.3 L (2.6-4.7) mg/dL Magnesium (1.8-2.4) mg/dl Total Bilirubin (0.2-1.0) mg/dL AST (15-37) U/L ALT (14-59) U/L Alkaline Phosphatase (46-116) U/L Ammonia (11-32) umol/L Creatine Kinase 1323 H (26-192) U/L NT-Pro-B Natriuret Pep 6895 H (0-125) pg/mL Total Protein (6.4-8.2) g/dl Albumin (3.4-5.0) g/dl Globulin gm/dL Albumin/Globulin Ratio (1-2) Shawn Results Last 24 Hours: Microbiology 01/13/17 14:33 Stool Culture - Final Stool / Feces - Final - Final Med Orders - Current: Current Medications Dextrose/Water (Dextrose 50% In Water) 50 ml IVPUSH ASDIRECTED PRN PRN Reason: hypoglycemia Enoxaparin Sodium (Lovenox) 40 mg SUBCUT DAILY [facility] Last Admin: 01/16/17 12:42 Dose: 40 mg Furosemide (Lasix) 40 mg IVPUSH BID [facility] Stop: 01/16/17 21:01 Last Admin: 01/16/17 09:35 Dose: 40 mg Hydralazine HCl (Apresoline) 10 mg IVPUSH Q2H PRN PRN Reason: Hypertension Last Admin: 01/16/17 02:12 Dose: 10 mg Ceftriaxone Sodium 1 gm/ (Sodium Chloride) 100 mls @ 200 mls/hr IV Q24H [facility] Last Admin: 01/15/17 13:10 Dose: 200 mls/hr Azithromycin 500 mg/ Sodium (Chloride) 250 mls @ 250 mls/hr IV Q24H [facility] Last Admin: 01/15/17 13:48 Dose: 250 mls/hr Dextrose/Water (Dextrose 5% In Water) 1,000 mls @ 75 mls/hr IV ASDIRECTED [facility] Last Admin: 01/16/17 05:59 Dose: 75 mls/hr Multivitamins/Minerals 10 ml/Amino Acids/Electrolytes/Dextrose 1,010 mls @ 40 mls/hr IV Q24H [facility] Fat Emulsion Intravenous (Intralipid 20%) 500 mls @ 43 mls/hr IV Q24H [facility] Insulin Aspart (Novolog) 0 unit SUBCUT Q6H [facility] PRN Reason: Protocol Last Admin: 01/16/17 12:47 Dose: 6 units Insulin Detemir (Levemir) 10 unit SUBCUT BID [facility] Last Admin: 01/16/17 10:00 Dose: 10 units Levalbuterol HCl (Xopenex) 1.25 mg NEB Q4HRRT [facility] Last Admin: 01/16/17 09:50 Dose: 1.25 mg Lorazepam (Ativan) 0 mg IVPUSH ASDIRECTED PRN; Protocol PRN Reason: withdrawal Magnesium Sulfate (Pharmacy To Dose - Magnesium Replacement) 1 dose .XX ASDIRECTED PRN PRN Reason: RX to Dose Metoprolol Tartrate (Lopressor) 5 mg IVPUSH Q4H PRN PRN Reason: Tachycardia Last Admin: 01/15/17 21:35 Dose: 5 mg Morphine Sulfate (Morphine) 2 mg IVPUSH Q2H PRN PRN Reason: pain, NVPS agitation Last Admin: 01/16/17 09:34 Dose: 2 mg Pantoprazole Sodium (Protonix Iv) 40 mg IVPUSH DAILY [facility] Last Admin: 01/16/17 09:36 Dose: 40 mg Potassium Chloride (Pharmacy To Dose - Potassium Replacement) 1 dose .XX ASDIRECTED [facility] Sodium Chloride (Saline Flush) 10 ml FLUSH ASDIRECTED PRN PRN Reason: Keep Vein Open Last Admin: 01/14/17 19:53 Dose: 10 ml Discontinued Medications Albuterol/Ipratropium (Duoneb 3.0-0.5 Mg/3 Ml) 3 ml NEB Q4HRRT [facility] Last Admin: 01/14/17 09:58 Dose: 3 ml Albuterol/Ipratropium (Duoneb 3.0-0.5 Mg/3 Ml) Confirm Administered Dose 3 ml .ROUTE .STK-MED ONE Stop: 01/13/17 08:53 Last Admin: 01/13/17 09:03 Dose: Not Given Clonidine HCl (Catapres) 0.1 mg PO Q4H PRN PRN Reason: Agitation Diphenhydramine HCl (Benadryl) 50 mg IVPUSH ONETIME ONE Stop: 01/10/17 21:57 Last Admin: 01/10/17 22:28 Dose: 50 mg Famotidine (Pepcid) 20 mg IVPUSH ONETIME ONE Stop: 01/10/17 22:12 Last Admin: 01/10/17 22:28 Dose: 20 mg Famotidine (Pepcid) 20 mg PO DAILY [facility] Last Admin: 01/11/17 10:31 Dose: Not Given Folic Acid (Folic Acid) 1 mg PO DAILY [facility] Last Admin: 01/11/17 10:31 Dose: Not Given Furosemide (Lasix) 20 mg IVPUSH NOW ONE Stop: 01/13/17 10:43 Last Admin: 01/13/17 10:56 Dose: 20 mg Furosemide (Lasix) 40 mg IVPUSH NOW ONE Stop: 01/14/17 11:38 Last Admin: 01/14/17 11:51 Dose: 40 mg Furosemide (Lasix) 40 mg IVPUSH NOW ONE Stop: 01/15/17 09:17 Last Admin: 01/15/17 09:27 Dose: 40 mg Hydralazine HCl (Apresoline) 20 mg PO Q6H PRN PRN Reason: Hypertension Sodium Chloride (Normal Saline) 1,000 mls @ 999 mls/hr IV ONETIME ONE Stop: 01/10/17 19:40 Last Admin: 01/10/17 18:52 Dose: 999 mls/hr Ceftriaxone Sodium 1 gm/ (Sodium Chloride) 100 mls @ 200 mls/hr IV ONETIME ONE Stop: 01/10/17 20:15 Last Admin: 01/10/17 19:59 Dose: 200 mls/hr Magnesium Sulfate 2 gm/ Premix 50 mls @ 25 mls/hr IV ONETIME ONE Stop: 01/10/17 21:46 Last Admin: 01/10/17 21:08 Dose: 25 mls/hr Sodium Chloride (Normal Saline) 1,000 mls @ 250 mls/hr IV ASDIRECTED [facility] Last Admin: 01/11/17 13:27 Dose: 250 mls/hr Sodium Chloride (Normal Saline) 1,000 mls @ 999 mls/hr IV ASDIRECTED [facility] Last Admin: 01/10/17 22:19 Dose: 999 mls/hr Sodium Chloride (Normal Saline) 1,000 mls @ 999 mls/hr IV ONETIME ONE Stop: 01/10/17 22:46 Last Admin: 01/10/17 22:18 Dose: 999 mls/hr Thiamine HCl 200 mg/ Sodium (Chloride) 102 mls @ 204 mls/hr IV ONETIME ONE Stop: 01/10/17 21:55 Last Admin: 01/10/17 22:39 Dose: 204 mls/hr Magnesium Sulfate 2 gm/ Premix 50 mls @ 25 mls/hr IV ONETIME ONE Stop: 01/11/17 00:13 Last Admin: 01/10/17 23:31 Dose: 25 mls/hr Levofloxacin/Dextrose 250 mg/ (Premix) 50 mls @ 50 mls/hr IV ONETIME ONE Stop: 01/10/17 23:15 Last Admin: 01/11/17 00:28 Dose: 50 mls/hr Dextrose/Sodium Chloride (Dextrose 5%-Normal Saline) 1,000 mls @ 150 mls/hr IV ASDIRECTED [facility] Last Admin: 01/12/17 07:24 Dose: 150 mls/hr Magnesium Sulfate/Dextrose 1 (gm/ Premix) 100 mls @ 100 mls/hr IV Q1H [facility] Stop: 01/12/17 10:59 Last Admin: 01/12/17 10:41 Dose: 100 mls/hr Dextrose/Sodium Chloride (Dextrose 5%-1/2 Ns) 1,000 mls @ 125 mls/hr IV ASDIRECTED [facility] Last Admin: 01/13/17 06:45 Dose: 125 mls/hr Magnesium Sulfate/Dextrose 1 (gm/ Premix) 100 mls @ 100 mls/hr IV Q1H [facility] Stop: 01/13/17 10:59 Potassium Chloride 10 meq/ (Premix) 100 mls @ 100 mls/hr IV Q1H [facility] Stop: 01/13/17 14:59 Last Admin: 01/13/17 13:08 Dose: 100 mls/hr Magnesium Sulfate 2 gm/ Premix 50 mls @ 25 mls/hr IV ONETIME ONE Stop: 01/13/17 10:41 Last Admin: 01/13/17 08:46 Dose: 25 mls/hr Magnesium Sulfate (Magnesium Sulfate 2 Gm In Water 50 Ml) Confirm Administered Dose 50 mls @ as directed .ROUTE .K-MED ONE Stop: 01/13/17 08:43 Last Admin: 01/13/17 08:59 Dose: Not Given Sodium Chloride (Normal Saline) 1,000 mls @ 125 mls/hr IV ASDIRECTED [facility] Last Admin: 01/13/17 14:37 Dose: 125 mls/hr Sodium Chloride (Normal Saline) 1,000 mls @ 200 mls/hr IV ASDIRECTED [facility] Last Infusion: 01/14/17 12:40 Dose: 100 mls/hr Potassium Chloride 10 meq/ (Premix) 100 mls @ 100 mls/hr IV Q1H [facility] Stop: 01/14/17 16:29 Last Admin: 01/14/17 16:17 Dose: 100 mls/hr Magnesium Sulfate 4 gm/ Premix 100 mls @ 25 mls/hr IV ONETIME [facility] Stop: 01/14/17 12:29 Last Admin: 01/14/17 08:48 Dose: 25 mls/hr Sodium Chloride (Normal Saline) 1,000 mls @ 100 mls/hr IV ASDIRECTED [facility] Last Admin: 01/15/17 16:00 Dose: 100 mls/hr Magnesium Sulfate 2 gm/ Premix 50 mls @ 25 mls/hr IV ONETIME ONE Stop: 01/16/17 06:42 Last Admin: 01/16/17 05:18 Dose: 25 mls/hr Potassium Chloride 10 meq/ (Premix) 100 mls @ 100 mls/hr IV Q1H [facility] Stop: 01/16/17 10:59 Last Admin: 01/16/17 12:38 Dose: 100 mls/hr Multivitamins/Minerals 10 ml/Amino Acids/Electrolytes/Dextrose 1,010 mls @ 40 mls/hr IV Q24H [facility] Magnesium Sulfate 2 gm/ Premix 50 mls @ 25 mls/hr IV ONETIME ONE Stop: 01/16/17 13:14 Last Admin: 01/16/17 11:58 Dose: 25 mls/hr Insulin Aspart (Novolog) 0 unit SUBCUT Q6HR [facility] PRN Reason: Protocol Last Admin: 01/11/17 12:06 Dose: Not Given Insulin Aspart (Novolog) 0 unit SUBCUT QIDACANDBED [facility] PRN Reason: Protocol Last Admin: 01/12/17 16:56 Dose: 4 units Insulin Aspart (Novolog) 0 unit SUBCUT Q6HR [facility] PRN Reason: Protocol Last Admin: 01/13/17 00:05 Dose: Not Given Insulin Aspart (Novolog) 0 unit SUBCUT Q6H [facility] PRN Reason: Protocol Last Admin: 01/15/17 04:35 Dose: 3 units Insulin Detemir (Levemir) 10 unit SUBCUT BEDTIME [facility] Last Admin: 01/12/17 21:28 Dose: 10 units Lorazepam (Ativan) 1 - 3 mg IVPUSH Q4H PRN; Protocol PRN Reason: withdrawal Last Admin: 01/11/17 21:44 Dose: 1 mg Lorazepam (Ativan) 2 mg IVPUSH Q4H PRN PRN Reason: Seizures Last Admin: 01/13/17 13:55 Dose: 2 mg Lorazepam (Ativan) 1 - 3 mg IVPUSH ASDIRECTED PRN; Protocol PRN Reason: withdrawal Last Admin: 01/15/17 02:45 Dose: 2 mg Lorazepam (Ativan) 4 mg IVPUSH Q6H [facility] Last Admin: 01/15/17 05:06 Dose: 4 mg Lorazepam (Ativan) 4 mg IVPUSH Q2H PRN PRN Reason: severe agitation/withdrawl Last Admin: 01/14/17 01:42 Dose: 4 mg Magnesium Sulfate (Pharmacy To Dose - Magnesium Replacement) 1 dose .XX ASDIRECTED [facility] Sodium Chloride (Saline Flush) 10 ml FLUSH ASDIRECTED PRN PRN Reason: Keep Vein Open Last Admin: 01/12/17 22:52 Dose: 10 ml Topiramate (Topamax) 25 mg PO BID [facility] Last Admin: 01/11/17 12:19 Dose: Not Given - Exam Quality Assessment: Supplemental Oxygen, Central Line/PICC, DVT Prophylaxis General: Obtunded HEENT: Pupils Equal, Pupils Reactive Neck: Supple, Trachea Midline Lungs: Normal Respiratory Effort, Decreased Breath Sounds GI/Abdominal Exam: Normal Bowel Sounds, Soft, Non-Tender (Female) Exam: Deferred Back Exam: Normal Inspection Extremities: Normal Inspection Skin: Warm Neurological: No New Focal Deficit, Other (obtunded) - Problem List & Annotations (1) Encephalopathy acute SNOMED Code(s): 9136547 Code(s): G93.40 - ENCEPHALOPATHY, UNSPECIFIED Status: Acute Current Visit : Yes - Problem List Review Problem List Initiated/Reviewed/Updated: Yes - My Orders Last 24 Hours: My Active Orders 01/16/17 11:15 Enoxaparin [Lovenox] 40 mg SUBCUT DAILY 01/16/17 11:27 Notify Provider Consults [RC] ASDIRECTED 01/16/17 12:07 Neuro Check [RC] BID 01/16/17 13:00 Echo Comp wo Cont [US] Routine 01/16/17 18:00 BASIC METABOLIC PANEL,BMP [CHEM] Routine MAGNESIUM [CHEM] Routine - Assessment Assessment:: 1. Suicidal attempts with prescription drug overdose. 2. Acute withdrawal syndrome. 3. Altered mental status due---metabolic encephalopathy. 4. Urinary tract infection due to Escherichia coli. 5. Rhabdomyolysis, resolving. 6. Pneumonia versus atelectasis versus pulmonary vascular congestion; diuresed. - Plan Plan:: 1. Continue ICU management. 2. We'll discontinue IV fluid hydration as CPK level has reduced considerably. We'll give IV fluid boluses as needed. 3. IV Lasix 40 mg twice daily. 4. Bronchodilator therapy with Xopenex every 4 hours as needed. Respiratory therapy evaluation and treatment. 5. Oxygen supplementation therapy to maintain oxygen saturation above 90%. 6. Continue IV antibiotic therapy with Rocephin and add azithromycin 500 mg twice daily. 7. DC CIWA, neurochecks as ordered; aspiration precautions. 8. DVT prophylaxis with MJ hose. Pharmacologic anticoagulation contraindicated as patient has thrombocytopenia from chronic alcohol use. 9. Substance abuse counseling and psychiatry consults in the chart for when patient is stable. 10. Social service evaluation for discharge planning. 11. Dietary consult re: TPN. 12. Dextrose for free water, correct sodium --->LOS exceed 96 hours with current neurologic status
[2017-01-16] MEDS: cefTRIAXone 1 GM in Sodium Chloride 0.9% 100 ML IV SCH (14:48)
[2017-01-16] MEDS: Azithromycin 500 MG in Sodium Chloride 0.9% 250 ML IV SCH (14:52)
[2017-01-16] MEDS ORDERED: VITAMIN K IV ONE ×2 (15:00)
[2017-01-16] MEDS ORDERED: LYTES IV ONE ×2 (15:00)
[2017-01-16] MEDS ORDERED: MVI IV ONE ×2 (15:00)
[2017-01-16] MEDS ORDERED: [UNRECOGNIZED DRUG - OTHER] IV ONE ×2 (15:00)
[2017-01-16] MEDS ORDERED: CALCIUM IV ONE ×2 (15:00)
--- NOTE | 2017-01-16 15:21 | CR ---
Chest: Portable view of the chest was obtained. Study centered to the right side. Right-sided PICC line seen. Tip lies within the right atrium. Lungs are grossly clear. Impression: 1. Right atrial position of the PICC line. Diagnostic code #2
--- NOTE | 2017-01-16 15:21 | CR ---
Chest: Portable view of the chest were obtained. Comparison: Previous chest x-ray performed earlier on same day. Tip of PICC line difficult to determine due to patient rotation. Tip location presumably at the right atrial and superior vena cava junction. Lungs are grossly clear. Impression: 1. Findings as noted above. Diagnostic code #2
--- NOTE | 2017-01-16 15:45 | PCM.SN ---
- Free Text/Narrative Note: 01-16-17 Start- 1400 End 1440 PICC placement Order from Dr Moser for PICC placement for altered mental status and total parenteral nutrition. Chart reviewed. Patient educated. Agrees to proceed. Consent signed. Site cleansed with ChloraPrep. Lidocaine 1% local anesthetic injected prior to 20ga IV catheter insertion under ultrasound guidance. Sterile gown, gloves and drape used. 5fr Groshong NXT ClearVue dual lumen PICC inserted 38cm per sterile technique right proximal antecubital. Secured with statlock. Flushes well with NaCl with good blood return. Dressed with opsite with CHG. 7cm PICC catheter remains out for measurement purposes. Chest Xray taken. Confirmed SVC placement per radiologist. PICC line inserted per Lucas HERNANDEZ. Nguyễn Guerin VICE PRESIDENT OF [employer]ODUCT MARKETING
[2017-01-16] MEDS: Fat Emulsion 500 ML IV SCH (17:45)
[2017-01-16] MEDS ORDERED: Levalbuterol HCl 1.25 MG/3 ML Neb ONE (18:01)
[2017-01-16] MEDS ORDERED: Magnesium Sulfate/Water 50 ML IV SCH (23:30)
[2017-01-17] MEDS: Insulin Aspart 100 Units/ML 3 ML Pen SUBCUT SCH ×4 (00:22→19:06)
[2017-01-17] MEDS: Potassium Chloride 10 MEQ in Premix Bag 1 BAG IV SCH ×7 (00:46→16:19)
[2017-01-17] MEDS: Levalbuterol HCl 1.25 MG/3 ML Neb NEB SCH ×5 (01:19→20:49)
[2017-01-17] MEDS: Morphine 2 MG/ML Syringe IVPUSH PRN (04:24)
[2017-01-17] MEDS: hydrALAZINE 20 MG/ML SDV IVPUSH PRN (08:12)
[2017-01-17] MEDS ORDERED: Magnesium Sulfate/Water 2 GM in Premix Bag 1 BAG IV ONE ×3 (09:41→18:00)
[2017-01-17] MEDS ORDERED: CALCIUM IV SCH ×2 (10:00)
[2017-01-17] MEDS ORDERED: D10 IV SCH ×2 (10:00)
[2017-01-17] MEDS ORDERED: LYTES IV SCH ×2 (10:00)
[2017-01-17] MEDS ORDERED: MVI IV SCH ×2 (10:00)
[2017-01-17] MEDS ORDERED: Bisacodyl 10 MG Supp RECTAL ONE ×2 (10:00→13:15)
[2017-01-17] MEDS ORDERED: [UNRECOGNIZED DRUG - OTHER] IV SCH ×2 (10:00)
[2017-01-17] MEDS ORDERED: VITAMIN K IV SCH ×2 (10:00)
[2017-01-17] MEDS: Insulin Detemir 100 Units/ML 3 ML Pen SUBCUT SCH ×2 (10:11→20:46)
[2017-01-17] MEDS: Enoxaparin 40 MG/0.4 ML Syringe SUBCUT SCH (10:19)
[2017-01-17] MEDS: Pantoprazole 40 MG Vial IVPUSH SCH (10:21)
[2017-01-17] MEDS ORDERED: 50% Dextrose in Water 50 ML Syringe IVPUSH PRN (10:37)
[2017-01-17] MEDS: Lactated Ringers 1,000 ML IV SCH (11:06)
[2017-01-17] MEDS: Metoprolol Tartrate 5 MG/5 ML SDV IVPUSH SCH ×2 (11:10→19:09)
[2017-01-17] MEDS: Furosemide 40 MG/4 ML VIAL IVPUSH SCH (11:18)
--- NOTE | 2017-01-17 12:27 | PCM.PN ---
- General Info Date of Service: 01/17/17 Functional Status: Reports: Tolerating Diet (TPN), Other (obtunded; moving extremities) - Review of Systems General: Reports: No Symptoms HEENT: Reports: No Symptoms Pulmonary: Reports: No Symptoms Cardiovascular: Reports: No Symptoms Gastrointestinal: Reports: No Symptoms Genitourinary: Reports: No Symptoms Musculoskeletal: Reports: No Symptoms Skin: Reports: No Symptoms Neurological: Reports: No Symptoms Psychiatric: Reports: No Symptoms - Patient Data Vitals - Most Recent: Last Vital Signs Temp 36.9 C 01/17/17 08:00 Pulse 103 H 01/17/17 11:10 Resp 20 01/17/17 08:00 BP 146/85 H 01/17/17 11:10 Pulse Ox 93 L 01/17/17 08:00 Weight - Most Recent: 83.869 kg I&O - Last 24 Hours: Intake & Output 01/16/17 01/17/17 01/17/17 22:59 06:59 14:59 Intake Total 1600 2812 Output Total 560 1375 475 Balance 1040 1437 -475 Lab Results Last 24 Hours: Laboratory Results - last 24 hr 01/16/17 01/16/17 01/16/17 Range/Units 12:46 17:56 18:09 WBC (3.98-10.04) K/mm3 RBC (3.98-5.22) M/mm3 Hgb (11.2-15.7) gm/L Hct (34.1-44.9) % MCV (79.4-94.8) fl MCH (25.6-32.2) pg MCHC (32.2-35.5) g/dl RDW Std Deviation (36.4-46.3) fL Plt Count (182-369) K/mm3 MPV (9.4-12.3) fl Neutrophils % (Manual) (40-60) % Band Neutrophils % (0-10) % Lymphocytes % (Manual) (20-40) % Atypical Lymphs % % Monocytes % (Manual) (2-10) % Eosinophils % (Manual) (0.7-5.8) % Basophils % (Manual) (0.1-1.2) Toxic Granulation Platelet Estimate Macrocytosis Target Cells Tear Drop Cells RBC Morph Comment Sodium 149 H (136-145) mEq/L Potassium 3.1 L (3.5-5.1) mEq/L Chloride 108 H (98-107) mEq/L Carbon Dioxide 28 (21-32) mEq/L Anion Gap 16.1 H (5-15) BUN 12 (7-18) mg/dL Creatinine 0.9 (0.55-1.02) mg/dL Est Cr Clr Drug Dosing 76.42 mL/min Estimated GFR (MDRD) > 60 (>60) mL/min BUN/Creatinine Ratio 13.3 L (14-18) Glucose 293 H (74-106) mg/dL POC Glucose 236 H 267 H (70-105) mg/dL Calcium 8.2 L (8.5-10.1) mg/dL Magnesium 1.4 L (1.8-2.4) mg/dl C-Reactive Protein (<1.0) mg/dL 01/16/17 01/17/17 01/17/17 Range/Units 21:57 00:21 06:06 WBC (3.98-10.04) K/mm3 RBC (3.98-5.22) M/mm3 Hgb (11.2-15.7) gm/L Hct (34.1-44.9) % MCV (79.4-94.8) fl MCH (25.6-32.2) pg MCHC (32.2-35.5) g/dl RDW Std Deviation (36.4-46.3) fL Plt Count (182-369) K/mm3 MPV (9.4-12.3) fl Neutrophils % (Manual) (40-60) % Band Neutrophils % (0-10) % Lymphocytes % (Manual) (20-40) % Atypical Lymphs % % Monocytes % (Manual) (2-10) % Eosinophils % (Manual) (0.7-5.8) % Basophils % (Manual) (0.1-1.2) Toxic Granulation Platelet Estimate Macrocytosis Target Cells Tear Drop Cells RBC Morph Comment Sodium (136-145) mEq/L Potassium (3.5-5.1) mEq/L Chloride (98-107) mEq/L Carbon Dioxide (21-32) mEq/L Anion Gap (5-15) BUN (7-18) mg/dL Creatinine (0.55-1.02) mg/dL Est Cr Clr Drug Dosing mL/min Estimated GFR (MDRD) (>60) mL/min BUN/Creatinine Ratio (14-18) Glucose (74-106) mg/dL POC Glucose 296 H 382 H 300 H (70-105) mg/dL Calcium (8.5-10.1) mg/dL Magnesium (1.8-2.4) mg/dl C-Reactive Protein (<1.0) mg/dL 01/17/17 01/17/17 01/17/17 Range/Units 06:58 06:58 06:58 WBC 4.29 (3.98-10.04) K/mm3 RBC 2.58 L (3.98-5.22) M/mm3 Hgb 9.2 L (11.2-15.7) gm/L Hct 28.2 L (34.1-44.9) % MCV 109.3 H (79.4-94.8) fl MCH 35.7 H (25.6-32.2) pg MCHC 32.6 (32.2-35.5) g/dl RDW Std Deviation 49.0 H (36.4-46.3) fL Plt Count 122 L (182-369) K/mm3 MPV 10.6 (9.4-12.3) fl Neutrophils % (Manual) 70 H (40-60) % Band Neutrophils % 0 (0-10) % Lymphocytes % (Manual) 25 (20-40) % Atypical Lymphs % 0 % Monocytes % (Manual) 1 L (2-10) % Eosinophils % (Manual) 3 (0.7-5.8) % Basophils % (Manual) 1 (0.1-1.2) Toxic Granulation 1+ slight Platelet Estimate Decreased Macrocytosis 2+ moderate Target Cells 1+ slight Tear Drop Cells 1+ slight RBC Morph Comment Not Reportable Sodium 144 (136-145) mEq/L Potassium 3.3 L (3.5-5.1) mEq/L Chloride 104 (98-107) mEq/L Carbon Dioxide 32 (21-32) mEq/L Anion Gap 11.3 (5-15) BUN 11 (7-18) mg/dL Creatinine 1.0 (0.55-1.02) mg/dL Est Cr Clr Drug Dosing 68.77 mL/min Estimated GFR (MDRD) 58 (>60) mL/min BUN/Creatinine Ratio 11.0 L (14-18) Glucose 330 H (74-106) mg/dL POC Glucose 336 H (70-105) mg/dL Calcium 8.2 L (8.5-10.1) mg/dL Magnesium (1.8-2.4) mg/dl C-Reactive Protein 3.2 H* (<1.0) mg/dL 01/17/17 01/17/17 Range/Units 06:58 10:10 WBC (3.98-10.04) K/mm3 RBC (3.98-5.22) M/mm3 Hgb (11.2-15.7) gm/L Hct (34.1-44.9) % MCV (79.4-94.8) fl MCH (25.6-32.2) pg MCHC (32.2-35.5) g/dl RDW Std Deviation (36.4-46.3) fL Plt Count (182-369) K/mm3 MPV (9.4-12.3) fl Neutrophils % (Manual) (40-60) % Band Neutrophils % (0-10) % Lymphocytes % (Manual) (20-40) % Atypical Lymphs % % Monocytes % (Manual) (2-10) % Eosinophils % (Manual) (0.7-5.8) % Basophils % (Manual) (0.1-1.2) Toxic Granulation Platelet Estimate Macrocytosis Target Cells Tear Drop Cells RBC Morph Comment Sodium (136-145) mEq/L Potassium (3.5-5.1) mEq/L Chloride (98-107) mEq/L Carbon Dioxide (21-32) mEq/L Anion Gap (5-15) BUN (7-18) mg/dL Creatinine (0.55-1.02) mg/dL Est Cr Clr Drug Dosing mL/min Estimated GFR (MDRD) (>60) mL/min BUN/Creatinine Ratio (14-18) Glucose (74-106) mg/dL POC Glucose 293 H (70-105) mg/dL Calcium (8.5-10.1) mg/dL Magnesium 1.6 L (1.8-2.4) mg/dl C-Reactive Protein (<1.0) mg/dL Shawn Results Last 24 Hours: Microbiology 01/13/17 14:33 Stool Culture - Final Stool / Feces - Final - Final Med Orders - Current: Current Medications Dextrose/Water (Dextrose 50% In Water) 50 ml IVPUSH ASDIRECTED PRN PRN Reason: Hypoglycemia Enoxaparin Sodium (Lovenox) 40 mg SUBCUT DAILY [facility] Last Admin: 01/17/17 10:19 Dose: 40 mg Furosemide (Lasix) 40 mg IVPUSH DAILY [facility] Last Admin: 01/17/17 11:18 Dose: 40 mg Hydralazine HCl (Apresoline) 10 mg IVPUSH Q2H PRN PRN Reason: Hypertension Last Admin: 01/17/17 08:12 Dose: 10 mg Ceftriaxone Sodium 1 gm/ (Sodium Chloride) 100 mls @ 200 mls/hr IV Q24H [facility] Last Admin: 01/16/17 14:48 Dose: 200 mls/hr Azithromycin 500 mg/ Sodium (Chloride) 250 mls @ 250 mls/hr IV Q24H [facility] Last Admin: 01/16/17 14:52 Dose: 250 mls/hr Fat Emulsion Intravenous (Intralipid 20%) 500 mls @ 43 mls/hr IV [id number] [facility] Last Infusion: 01/16/17 19:10 Dose: 43 mls/hr Multivitamins/Minerals 10 ml/Amino Acids/Electrolytes/Dextrose 1,010 mls @ 40 mls/hr IV ONETIME ONE Stop: 01/17/17 16:14 Last Admin: 01/16/17 15:21 Dose: 40 mls/hr Lactated Ringer's (Ringers, Lactated) 1,000 mls @ 50 mls/hr IV ASDIRECTED [facility] Last Admin: 01/17/17 11:06 Dose: 50 mls/hr Magnesium Sulfate 2 gm/ Premix 50 mls @ 25 mls/hr IV ONETIME ONE Stop: 01/17/17 19:59 Potassium Chloride 10 meq/ (Premix) 100 mls @ 100 mls/hr IV Q1H [facility] Stop: 01/17/17 15:59 Last Admin: 01/17/17 12:09 Dose: 100 mls/hr Multivitamins/Minerals 10 ml/Amino Acids/Electrolytes/Dextrose 1,010 mls @ 55 mls/hr IV ONETIME ONE Stop: 01/18/17 09:21 Insulin Aspart (Novolog) 0 unit SUBCUT Q6H [facility] PRN Reason: Protocol Last Admin: 01/17/17 11:08 Dose: 9 units Insulin Detemir (Levemir) 10 unit SUBCUT BID [facility] Last Admin: 01/17/17 10:11 Dose: 10 units Levalbuterol HCl (Xopenex) 1.25 mg NEB QID [facility] Lorazepam (Ativan) 0 mg IVPUSH ASDIRECTED PRN; Protocol PRN Reason: withdrawal Metoprolol Tartrate (Lopressor) 5 mg IVPUSH Q6H [facility] Last Admin: 01/17/17 11:10 Dose: 5 mg Morphine Sulfate (Morphine) 2 mg IVPUSH Q2H PRN PRN Reason: pain, NVPS agitation Last Admin: 01/17/17 04:24 Dose: 2 mg Pantoprazole Sodium (Protonix Iv) 40 mg IVPUSH DAILY [facility] Last Admin: 01/17/17 10:21 Dose: 40 mg Potassium Chloride (Pharmacy To Dose - Potassium Replacement) 1 dose .XX ASDIRECTED [facility] Sodium Chloride (Saline Flush) 10 ml FLUSH ASDIRECTED PRN PRN Reason: Keep Vein Open Last Admin: 01/14/17 19:53 Dose: 10 ml Discontinued Medications Albuterol/Ipratropium (Duoneb 3.0-0.5 Mg/3 Ml) 3 ml NEB Q4HRRT [facility] Last Admin: 01/14/17 09:58 Dose: 3 ml Albuterol/Ipratropium (Duoneb 3.0-0.5 Mg/3 Ml) Confirm Administered Dose 3 ml .ROUTE .STK-MED ONE Stop: 01/13/17 08:53 Last Admin: 01/13/17 09:03 Dose: Not Given Bisacodyl (Dulcolax) 10 mg RECTAL ONETIME ONE Stop: 01/17/17 10:01 Clonidine HCl (Catapres) 0.1 mg PO Q4H PRN PRN Reason: Agitation Dextrose/Water (Dextrose 50% In Water) 50 ml IVPUSH ASDIRECTED PRN PRN Reason: hypoglycemia Diphenhydramine HCl (Benadryl) 50 mg IVPUSH ONETIME ONE Stop: 01/10/17 21:57 Last Admin: 01/10/17 22:28 Dose: 50 mg Famotidine (Pepcid) 20 mg IVPUSH ONETIME ONE Stop: 01/10/17 22:12 Last Admin: 01/10/17 22:28 Dose: 20 mg Famotidine (Pepcid) 20 mg PO DAILY [facility] Last Admin: 01/11/17 10:31 Dose: Not Given Folic Acid (Folic Acid) 1 mg PO DAILY [facility] Last Admin: 01/11/17 10:31 Dose: Not Given Furosemide (Lasix) 20 mg IVPUSH NOW ONE Stop: 01/13/17 10:43 Last Admin: 01/13/17 10:56 Dose: 20 mg Furosemide (Lasix) 40 mg IVPUSH NOW ONE Stop: 01/14/17 11:38 Last Admin: 01/14/17 11:51 Dose: 40 mg Furosemide (Lasix) 40 mg IVPUSH NOW ONE Stop: 01/15/17 09:17 Last Admin: 01/15/17 09:27 Dose: 40 mg Furosemide (Lasix) 40 mg IVPUSH BID [facility] Stop: 01/16/17 21:01 Last Admin: 01/16/17 21:54 Dose: 40 mg Hydralazine HCl (Apresoline) 20 mg PO Q6H PRN PRN Reason: Hypertension Sodium Chloride (Normal Saline) 1,000 mls @ 999 mls/hr IV ONETIME ONE Stop: 01/10/17 19:40 Last Admin: 01/10/17 18:52 Dose: 999 mls/hr Ceftriaxone Sodium 1 gm/ (Sodium Chloride) 100 mls @ 200 mls/hr IV ONETIME ONE Stop: 01/10/17 20:15 Last Admin: 01/10/17 19:59 Dose: 200 mls/hr Magnesium Sulfate 2 gm/ Premix 50 mls @ 25 mls/hr IV ONETIME ONE Stop: 01/10/17 21:46 Last Admin: 01/10/17 21:08 Dose: 25 mls/hr Sodium Chloride (Normal Saline) 1,000 mls @ 250 mls/hr IV ASDIRECTED [facility] Last Admin: 01/11/17 13:27 Dose: 250 mls/hr Sodium Chloride (Normal Saline) 1,000 mls @ 999 mls/hr IV ASDIRECTED [facility] Last Admin: 01/10/17 22:19 Dose: 999 mls/hr Sodium Chloride (Normal Saline) 1,000 mls @ 999 mls/hr IV ONETIME ONE Stop: 01/10/17 22:46 Last Admin: 01/10/17 22:18 Dose: 999 mls/hr Thiamine HCl 200 mg/ Sodium (Chloride) 102 mls @ 204 mls/hr IV ONETIME ONE Stop: 01/10/17 21:55 Last Admin: 01/10/17 22:39 Dose: 204 mls/hr Magnesium Sulfate 2 gm/ Premix 50 mls @ 25 mls/hr IV ONETIME ONE Stop: 01/11/17 00:13 Last Admin: 01/10/17 23:31 Dose: 25 mls/hr Levofloxacin/Dextrose 250 mg/ (Premix) 50 mls @ 50 mls/hr IV ONETIME ONE Stop: 01/10/17 23:15 Last Admin: 01/11/17 00:28 Dose: 50 mls/hr Dextrose/Sodium Chloride (Dextrose 5%-Normal Saline) 1,000 mls @ 150 mls/hr IV ASDIRECTED [facility] Last Admin: 01/12/17 07:24 Dose: 150 mls/hr Magnesium Sulfate/Dextrose 1 (gm/ Premix) 100 mls @ 100 mls/hr IV Q1H [facility] Stop: 01/12/17 10:59 Last Admin: 01/12/17 10:41 Dose: 100 mls/hr Dextrose/Sodium Chloride (Dextrose 5%-1/2 Ns) 1,000 mls @ 125 mls/hr IV ASDIRECTED [facility] Last Admin: 01/13/17 06:45 Dose: 125 mls/hr Magnesium Sulfate/Dextrose 1 (gm/ Premix) 100 mls @ 100 mls/hr IV Q1H [facility] Stop: 01/13/17 10:59 Potassium Chloride 10 meq/ (Premix) 100 mls @ 100 mls/hr IV Q1H [facility] Stop: 01/13/17 14:59 Last Admin: 01/13/17 13:08 Dose: 100 mls/hr Magnesium Sulfate 2 gm/ Premix 50 mls @ 25 mls/hr IV ONETIME ONE Stop: 01/13/17 10:41 Last Admin: 01/13/17 08:46 Dose: 25 mls/hr Magnesium Sulfate (Magnesium Sulfate 2 Gm In Water 50 Ml) Confirm Administered Dose 50 mls @ as directed .ROUTE .STK-MED ONE Stop: 01/13/17 08:43 Last Admin: 01/13/17 08:59 Dose: Not Given Sodium Chloride (Normal Saline) 1,000 mls @ 125 mls/hr IV ASDIRECTED [facility] Last Admin: 01/13/17 14:37 Dose: 125 mls/hr Sodium Chloride (Normal Saline) 1,000 mls @ 200 mls/hr IV ASDIRECTED [facility] Last Infusion: 01/14/17 12:40 Dose: 100 mls/hr Potassium Chloride 10 meq/ (Premix) 100 mls @ 100 mls/hr IV Q1H [facility] Stop: 01/14/17 16:29 Last Admin: 01/14/17 16:17 Dose: 100 mls/hr Magnesium Sulfate 4 gm/ Premix 100 mls @ 25 mls/hr IV ONETIME [facility] Stop: 01/14/17 12:29 Last Admin: 01/14/17 08:48 Dose: 25 mls/hr Sodium Chloride (Normal Saline) 1,000 mls @ 100 mls/hr IV ASDIRECTED [facility] Last Admin: 01/15/17 16:00 Dose: 100 mls/hr Magnesium Sulfate 2 gm/ Premix 50 mls @ 25 mls/hr IV ONETIME ONE Stop: 01/16/17 06:42 Last Admin: 01/16/17 05:18 Dose: 25 mls/hr Potassium Chloride 10 meq/ (Premix) 100 mls @ 100 mls/hr IV Q1H [facility] Stop: 01/16/17 10:59 Last Admin: 01/16/17 12:38 Dose: 100 mls/hr Dextrose/Water (Dextrose 5% In Water) 1,000 mls @ 75 mls/hr IV ASDIRECTED [facility] Last Admin: 01/16/17 22:00 Dose: 75 mls/hr Multivitamins/Minerals 10 ml/Amino Acids/Electrolytes/Dextrose 1,010 mls @ 40 mls/hr IV Q24H [facility] Magnesium Sulfate 2 gm/ Premix 50 mls @ 25 mls/hr IV ONETIME ONE Stop: 01/16/17 13:14 Last Admin: 01/16/17 11:58 Dose: 25 mls/hr Potassium Chloride 10 meq/ (Premix) 100 mls @ 100 mls/hr IV Q1H [facility] Stop: 01/17/17 03:29 Last Admin: 01/17/17 02:46 Dose: 100 mls/hr Magnesium Sulfate (Magnesium Sulfate 2 Gm In Water 50 Ml) 50 mls @ 25 mls/hr IV Q2H [facility] Stop: 01/17/17 01:29 Last Admin: 01/16/17 23:37 Dose: 25 mls/hr Magnesium Sulfate 2 gm/ Premix 50 mls @ 25 mls/hr IV ONETIME ONE Stop: 01/17/17 11:40 Magnesium Sulfate 2 gm/ Premix 50 mls @ 25 mls/hr IV ONETIME ONE Stop: 01/17/17 12:14 Last Admin: 01/17/17 12:08 Dose: 25 mls/hr Insulin Aspart (Novolog) 0 unit SUBCUT Q6HR [facility] PRN Reason: Protocol Last Admin: 01/11/17 12:06 Dose: Not Given Insulin Aspart (Novolog) 0 unit SUBCUT QIDACANDBED [facility] PRN Reason: Protocol Last Admin: 01/12/17 16:56 Dose: 4 units Insulin Aspart (Novolog) 0 unit SUBCUT Q6HR [facility] PRN Reason: Protocol Last Admin: 01/13/17 00:05 Dose: Not Given Insulin Aspart (Novolog) 0 unit SUBCUT Q6H [facility] PRN Reason: Protocol Last Admin: 01/15/17 04:35 Dose: 3 units Insulin Detemir (Levemir) 10 unit SUBCUT BEDTIME [facility] Last Admin: 01/12/17 21:28 Dose: 10 units Levalbuterol HCl (Xopenex) 1.25 mg NEB Q4HRRT [facility] Last Admin: 01/17/17 05:25 Dose: 1.25 mg Levalbuterol HCl (Xopenex) Confirm Administered Dose 1.25 mg .ROUTE .STK-MED ONE Stop: 01/16/17 18:02 Last Admin: 01/16/17 19:55 Dose: Not Given Lorazepam (Ativan) 1 - 3 mg IVPUSH Q4H PRN; Protocol PRN Reason: withdrawal Last Admin: 01/11/17 21:44 Dose: 1 mg Lorazepam (Ativan) 2 mg IVPUSH Q4H PRN PRN Reason: Seizures Last Admin: 01/13/17 13:55 Dose: 2 mg Lorazepam (Ativan) 1 - 3 mg IVPUSH ASDIRECTED PRN; Protocol PRN Reason: withdrawal Last Admin: 01/15/17 02:45 Dose: 2 mg Lorazepam (Ativan) 4 mg IVPUSH Q6H [facility] Last Admin: 01/15/17 05:06 Dose: 4 mg Lorazepam (Ativan) 4 mg IVPUSH Q2H PRN PRN Reason: severe agitation/withdrawl Last Admin: 01/14/17 01:42 Dose: 4 mg Magnesium Sulfate (Pharmacy To Dose - Magnesium Replacement) 1 dose .XX ASDIRECTED [facility] Metoprolol Tartrate (Lopressor) 5 mg IVPUSH Q4H PRN PRN Reason: Tachycardia Last Admin: 01/15/17 21:35 Dose: 5 mg Sodium Chloride (Saline Flush) 10 ml FLUSH ASDIRECTED PRN PRN Reason: Keep Vein Open Last Admin: 01/12/17 22:52 Dose: 10 ml Topiramate (Topamax) 25 mg PO BID [facility] Last Admin: 01/11/17 12:19 Dose: Not Given - Exam Quality Assessment: Central Line/PICC, DVT Prophylaxis, Skin Breakdown General: Obtunded HEENT: Pupils Equal, Pupils Reactive Neck: Supple, Trachea Midline Lungs: Normal Respiratory Effort, Decreased Breath Sounds Cardiovascular: Regular Rate, Regular Rhythm GI/Abdominal Exam: Normal Bowel Sounds, Soft, Non-Tender, No Organomegaly, No Distention (Female) Exam: Deferred Back Exam: Normal Inspection Extremities: Normal Inspection, Pedal Edema Skin: Warm Neurological: No New Focal Deficit Psy/Mental Status: Other (obtunded) - Problem List & Annotations (1) Encephalopathy acute SNOMED Code(s): 5454249 Code(s): G93.40 - ENCEPHALOPATHY, UNSPECIFIED Status: Acute Current Visit : Yes - Problem List Review Problem List Initiated/Reviewed/Updated: Yes - My Orders Last 24 Hours: My Active Orders 01/16/17 15:00 MVI, Adult with Vitamin K [M.V.I. Adult] 10 ml AA 4.25%/Calcium/D25W/Lytes [ Clinimix E 4.25/25] 1,000 ml IV ONETIME 01/16/17 18:00 Fat Emulsion [Intralipid 20%] 500 ml IV [id number] 01/17/17 09:45 Furosemide [Lasix] 40 mg IVPUSH DAILY Lactated Ringers [Ringers, Lactated] 1,000 ml IV ASDIRECTED 01/17/17 09:46 RT Aerosol Therapy [RC] ASDIRECTED Consult to Physical Therapy [PT Evaluation and Treatment] [CONS] Routine 01/17/17 09:49 Neurovascular Check [RC] Q4HR 01/17/17 09:50 Communication Order [RC] ASDIRECTED 01/17/17 10:37 Dextrose 50% in Water 50 ml IVPUSH ASDIRECTED PRN 01/17/17 12:00 Neuro Check [RC] Q4H Metoprolol Tartrate [Lopressor] 5 mg IVPUSH Q6H Potassium Chloride [KCl 10 MEQ in Water 100 ML] 10 meq Premix Bag 1 bag IV Q1H 01/17/17 13:00 Levalbuterol HCl [Xopenex] 1.25 mg NEB QID 01/17/17 15:00 MVI, Adult with Vitamin K [M.V.I. Adult] 10 ml AA 4.25%/Calcium/D25W/Lytes [ Clinimix E 4.25/25] 1,000 ml IV ONETIME 01/17/17 18:00 Magnesium Sulfate/Water [Magnesium Sulfate 2 GM in Water 50 ML] 2 gm Premix Bag 1 bag IV ONETIME - Assessment Assessment:: 1. S/P suicidal attempts with prescription drug overdose. 2. S/P acute withdrawal syndrome of multiple medications. 3. Altered mental status due--->metabolic encephalopathy; EEG results discussed , MRI unremarkable for CVA. 4. Urinary tract infection due to Escherichia coli-->completion of ATB therapy. 5. Rhabdomyolysis, resolving; current CPK-->TBD. 6. Pneumonia versus atelectasis versus pulmonary vascular congestion; diuresed. 7. Electrolytes abnormalities: K, Mg; 30 beat run of VT, Mg~1.6 8. 2D echo structurally normal heart, grade I diastolic dysfunction, LVEF WNL. - Plan Plan:: 1. Continue ICU management. 2. Adjust IV fluid hydration as CPK level has reduced considerably. Determine amount of free water, provided by IVF. 3. IV Lasix 40 mg twice daily, adjust as needed. 4. Bronchodilator therapy with Xopenex every 4 hours as needed. Respiratory therapy evaluation and treatment. 5. Oxygen supplementation therapy to maintain oxygen saturation above 90%. 6. Stop IV antibiotic therapy. 7. DC CIWA, neurochecks as ordered; aspiration precautions--->scheduled change of HOB either 30 or 40 degrees as ordered.. 8. DVT prophylaxis with MJ hose, added lovenox to avoid DVT, high probability, will monitor platelets. 9. Substance abuse counseling and psychiatry consults in the chart for when patient is stable. 10. Social service evaluation for discharge planning. 11. Dietary consult re: TPN. 12. Dextrose for free water, correct sodium---stopped, LR has been started. LOS>96 hours, minimal response, currently stable; consider transfer out of ICU.
[2017-01-17] MEDS: Azithromycin 500 MG in Sodium Chloride 0.9% 250 ML IV SCH (13:47)
[2017-01-17] MEDS: cefTRIAXone 1 GM in Sodium Chloride 0.9% 100 ML IV SCH (14:59)
[2017-01-17] MEDS ORDERED: LYTES IV ONE ×2 (15:00)
[2017-01-17] MEDS ORDERED: MVI IV ONE ×2 (15:00)
[2017-01-17] MEDS ORDERED: CALCIUM IV ONE ×2 (15:00)
[2017-01-17] MEDS ORDERED: [UNRECOGNIZED DRUG - OTHER] IV ONE ×2 (15:00)
[2017-01-17] MEDS ORDERED: VITAMIN K IV ONE ×2 (15:00)
[2017-01-17] MEDS ORDERED: Potassium Chloride 10 MEQ in Premix Bag 1 BAG IV SCH (16:15)
[2017-01-18] MEDS: Metoprolol Tartrate 5 MG/5 ML SDV IVPUSH SCH ×4 (00:35→17:47)
[2017-01-18] MEDS: Insulin Aspart 100 Units/ML 3 ML Pen SUBCUT SCH ×4 (00:37→17:46)
[2017-01-18] MEDS: hydrALAZINE 20 MG/ML SDV IVPUSH PRN ×3 (04:15→20:34)
[2017-01-18] MEDS: Morphine 2 MG/ML Syringe IVPUSH PRN ×3 (04:40→20:38)
[2017-01-18] MEDS: Lactated Ringers 1,000 ML IV SCH (06:35)
[2017-01-18] MEDS: Furosemide 40 MG/4 ML VIAL IVPUSH SCH (08:04)
[2017-01-18] MEDS: Pantoprazole 40 MG Vial IVPUSH SCH (08:05)
[2017-01-18] MEDS: Insulin Detemir 100 Units/ML 3 ML Pen SUBCUT SCH ×2 (08:06→20:58)
[2017-01-18] MEDS: Enoxaparin 40 MG/0.4 ML Syringe SUBCUT SCH (08:08)
[2017-01-18] MEDS: Levalbuterol HCl 1.25 MG/3 ML Neb NEB SCH ×4 (09:02→20:55)
[2017-01-18] MEDS ORDERED: Magnesium Sulfate/Water 4 GM in Premix Bag 1 BAG IV ONE (09:45)
[2017-01-18] MEDS: MVI IV SCH ×2 (10:27)
[2017-01-18] MEDS: VITAMIN K IV SCH ×2 (10:27)
[2017-01-18] MEDS: [UNRECOGNIZED DRUG - OTHER] IV SCH ×2 (10:27)
[2017-01-18] MEDS: LYTES IV SCH ×2 (10:27)
[2017-01-18] MEDS: CALCIUM IV SCH ×2 (10:27)
[2017-01-18] MEDS ORDERED: POTASSIUM CHLORIDE IV ONE (12:30)
[2017-01-18] MEDS ORDERED: LACTATED RINGERS IV ONE (12:30)
--- NOTE | 2017-01-18 14:18 | PCM.PN ---
- General Info Date of Service: 01/18/17 Functional Status: Reports: Urinating - Review of Systems General: Reports: No Symptoms HEENT: Reports: No Symptoms Pulmonary: Reports: No Symptoms Cardiovascular: Reports: No Symptoms Gastrointestinal: Reports: No Symptoms Genitourinary: Reports: No Symptoms Musculoskeletal: Reports: No Symptoms Skin: Reports: No Symptoms Neurological: Reports: Weakness, Other (more 4 extremity movement) Psychiatric: Reports: No Symptoms - Patient Data Vitals - Most Recent: Last Vital Signs Temp 37.2 C 01/18/17 12:00 Pulse 79 01/18/17 12:00 Resp 19 01/18/17 12:00 BP 141/77 H 01/18/17 12:00 Pulse Ox 94 L 01/18/17 12:00 Weight - Most Recent: 84.822 kg I&O - Last 24 Hours: Intake & Output 01/17/17 01/18/17 01/18/17 22:59 06:59 14:59 Intake Total 1100 2606 Output Total 429 576 0248 Balance 310 2121 -1150 Lab Results Last 24 Hours: Laboratory Results - last 24 hr 01/14/17 01/17/17 01/17/17 Range/Units 14:05 16:58 19:04 WBC (3.98-10.04) K/mm3 RBC (3.98-5.22) M/mm3 Hgb (11.2-15.7) gm/L Hct (34.1-44.9) % MCV (79.4-94.8) fl MCH (25.6-32.2) pg MCHC (32.2-35.5) g/dl RDW Std Deviation (36.4-46.3) fL Plt Count (182-369) K/mm3 MPV (9.4-12.3) fl Neut % (Auto) (34.0-71.1) % Lymph % (Auto) (19.3-51.7) % Tucker % (Auto) (4.7-12.5) % Eos % (Auto) (0.7-5.8) Baso % (Auto) (0.1-1.2) % Neut # (Auto) (1.56-6.13) K/mm3 Lymph # (Auto) (1.18-3.74) K/mm3 Tucker # (Auto) (0.24-0.36) K/mm3 Eos # (Auto) (0.04-0.36) K/mm3 Baso # (Auto) (0.01-0.08) K/mm3 Manual Slide Review Sodium (136-145) mEq/L Potassium (3.5-5.1) mEq/L Chloride (98-107) mEq/L Carbon Dioxide (21-32) mEq/L Anion Gap (5-15) BUN (7-18) mg/dL Creatinine (0.55-1.02) mg/dL Est Cr Clr Drug Dosing mL/min Estimated GFR (MDRD) (>60) mL/min BUN/Creatinine Ratio (14-18) Glucose (74-106) mg/dL POC Glucose 373 H (70-105) mg/dL Calcium (8.5-10.1) mg/dL Ionized Calcium 4.45 L (4.75-5.30) mg/dL Ionized Calcium pH 7.4 4.27 L (4.75-5.30) mg/dL Magnesium (1.8-2.4) mg/dl Creatine Kinase 469 H (26-192) U/L C-Reactive Protein (<1.0) mg/dL 01/17/17 01/18/17 01/18/17 Range/Units 20:27 00:35 06:01 WBC (3.98-10.04) K/mm3 RBC (3.98-5.22) M/mm3 Hgb (11.2-15.7) gm/L Hct (34.1-44.9) % MCV (79.4-94.8) fl MCH (25.6-32.2) pg MCHC (32.2-35.5) g/dl RDW Std Deviation (36.4-46.3) fL Plt Count (182-369) K/mm3 MPV (9.4-12.3) fl Neut % (Auto) (34.0-71.1) % Lymph % (Auto) (19.3-51.7) % Tucker % (Auto) (4.7-12.5) % Eos % (Auto) (0.7-5.8) Baso % (Auto) (0.1-1.2) % Neut # (Auto) (1.56-6.13) K/mm3 Lymph # (Auto) (1.18-3.74) K/mm3 Tucker # (Auto) (0.24-0.36) K/mm3 Eos # (Auto) (0.04-0.36) K/mm3 Baso # (Auto) (0.01-0.08) K/mm3 Manual Slide Review Sodium (136-145) mEq/L Potassium (3.5-5.1) mEq/L Chloride (98-107) mEq/L Carbon Dioxide (21-32) mEq/L Anion Gap (5-15) BUN (7-18) mg/dL Creatinine (0.55-1.02) mg/dL Est Cr Clr Drug Dosing mL/min Estimated GFR (MDRD) (>60) mL/min BUN/Creatinine Ratio (14-18) Glucose (74-106) mg/dL POC Glucose 268 H 321 H 260 H (70-105) mg/dL Calcium (8.5-10.1) mg/dL Ionized Calcium (4.75-5.30) mg/dL Ionized Calcium pH 7.4 (4.75-5.30) mg/dL Magnesium (1.8-2.4) mg/dl Creatine Kinase (26-192) U/L C-Reactive Protein (<1.0) mg/dL 01/18/17 01/18/17 01/18/17 Range/Units 08:47 08:47 11:58 WBC 4.98 (3.98-10.04) K/mm3 RBC 2.73 L (3.98-5.22) M/mm3 Hgb 9.7 L (11.2-15.7) gm/L Hct 29.3 L (34.1-44.9) % MCV 107.3 H (79.4-94.8) fl MCH 35.5 H (25.6-32.2) pg MCHC 33.1 (32.2-35.5) g/dl RDW Std Deviation 46.7 H (36.4-46.3) fL Plt Count 123 L (182-369) K/mm3 MPV 10.8 (9.4-12.3) fl Neut % (Auto) 66.3 (34.0-71.1) % Lymph % (Auto) 22.3 (19.3-51.7) % Tucker % (Auto) 7.4 (4.7-12.5) % Eos % (Auto) 2.6 (0.7-5.8) Baso % (Auto) 0.8 (0.1-1.2) % Neut # (Auto) 3.30 (1.56-6.13) K/mm3 Lymph # (Auto) 1.11 L (1.18-3.74) K/mm3 Tucker # (Auto) 0.37 H (0.24-0.36) K/mm3 Eos # (Auto) 0.13 (0.04-0.36) K/mm3 Baso # (Auto) 0.04 (0.01-0.08) K/mm3 Manual Slide Review Abnormal smear Sodium 141 (136-145) mEq/L Potassium 3.3 L (3.5-5.1) mEq/L Chloride 103 (98-107) mEq/L Carbon Dioxide 32 (21-32) mEq/L Anion Gap 9.3 (5-15) BUN 10 (7-18) mg/dL Creatinine 0.9 (0.55-1.02) mg/dL Est Cr Clr Drug Dosing 76.42 mL/min Estimated GFR (MDRD) > 60 (>60) mL/min BUN/Creatinine Ratio 11.1 L (14-18) Glucose 236 H (74-106) mg/dL POC Glucose 333 H (70-105) mg/dL Calcium 8.5 (8.5-10.1) mg/dL Ionized Calcium (4.75-5.30) mg/dL Ionized Calcium pH 7.4 (4.75-5.30) mg/dL Magnesium 1.3 L (1.8-2.4) mg/dl Creatine Kinase 323 H (26-192) U/L C-Reactive Protein 2.6 H* (<1.0) mg/dL Med Orders - Current: Current Medications Dextrose/Water (Dextrose 50% In Water) 50 ml IVPUSH ASDIRECTED PRN PRN Reason: Hypoglycemia Enoxaparin Sodium (Lovenox) 40 mg SUBCUT DAILY [facility] Last Admin: 01/18/17 08:08 Dose: 40 mg Furosemide (Lasix) 40 mg IVPUSH DAILY [facility] Last Admin: 01/18/17 08:04 Dose: 40 mg Hydralazine HCl (Apresoline) 10 mg IVPUSH Q2H PRN PRN Reason: Hypertension Last Admin: 01/18/17 04:15 Dose: 10 mg Fat Emulsion Intravenous (Intralipid 20%) 500 mls @ 43 mls/hr IV MoWeFr@1800 [facility] Last Infusion: 01/16/17 19:10 Dose: 43 mls/hr Lactated Ringer's (Ringers, Lactated) 1,000 mls @ 50 mls/hr IV ASDIRECTED [facility] Last Admin: 01/18/17 06:35 Dose: 50 mls/hr Multivitamins/Minerals 10 ml/Amino Acids/Electrolytes/Dextrose 1,010 mls @ 70 mls/hr IV DAILY@1000 [facility] Last Admin: 01/18/17 10:27 Dose: 70 mls/hr Amino Acids/Electrolytes/Dextrose (Clinimix E 4.25/25) 1,000 mls @ 70 mls/hr IV DAILY@2300 [facility] Potassium Chloride 80 meq/ (Lactated Ringer's) 1,040 mls @ 130 mls/hr IV ONETIME ONE Stop: 01/18/17 20:29 Last Admin: 01/18/17 12:04 Dose: 130 mls/hr Insulin Aspart (Novolog) 0 unit SUBCUT Q6H [facility] PRN Reason: Protocol Last Admin: 01/18/17 11:59 Dose: 12 units Insulin Detemir (Levemir) 10 unit SUBCUT BID [facility] Last Admin: 01/18/17 08:06 Dose: 10 units Levalbuterol HCl (Xopenex) 1.25 mg NEB QIDRT [facility] Last Admin: 01/18/17 09:02 Dose: 1.25 mg Lorazepam (Ativan) 0 mg IVPUSH ASDIRECTED PRN; Protocol PRN Reason: withdrawal Metoprolol Tartrate (Lopressor) 5 mg IVPUSH Q6H [facility] Last Admin: 01/18/17 11:56 Dose: 5 mg Morphine Sulfate (Morphine) 2 mg IVPUSH Q2H PRN PRN Reason: pain, NVPS agitation Last Admin: 01/18/17 13:33 Dose: 2 mg Pantoprazole Sodium (Protonix Iv) 40 mg IVPUSH DAILY [facility] Last Admin: 01/18/17 08:05 Dose: 40 mg Potassium Chloride (Pharmacy To Dose - Potassium Replacement) 1 dose .XX ASDIRECTED [facility] Sodium Chloride (Saline Flush) 10 ml FLUSH ASDIRECTED PRN PRN Reason: Keep Vein Open Last Admin: 01/14/17 19:53 Dose: 10 ml Discontinued Medications Albuterol/Ipratropium (Duoneb 3.0-0.5 Mg/3 Ml) 3 ml NEB Q4HRRT [facility] Last Admin: 01/14/17 09:58 Dose: 3 ml Albuterol/Ipratropium (Duoneb 3.0-0.5 Mg/3 Ml) Confirm Administered Dose 3 ml .ROUTE .STK-MED ONE Stop: 01/13/17 08:53 Last Admin: 01/13/17 09:03 Dose: Not Given Bisacodyl (Dulcolax) 10 mg RECTAL ONETIME ONE Stop: 01/17/17 10:01 Last Admin: 01/17/17 13:37 Dose: Not Given Bisacodyl (Dulcolax) 10 mg RECTAL ONETIME ONE Stop: 01/17/17 13:16 Last Admin: 01/17/17 13:35 Dose: 10 mg Clonidine HCl (Catapres) 0.1 mg PO Q4H PRN PRN Reason: Agitation Dextrose/Water (Dextrose 50% In Water) 50 ml IVPUSH ASDIRECTED PRN PRN Reason: hypoglycemia Diphenhydramine HCl (Benadryl) 50 mg IVPUSH ONETIME ONE Stop: 01/10/17 21:57 Last Admin: 01/10/17 22:28 Dose: 50 mg Famotidine (Pepcid) 20 mg IVPUSH ONETIME ONE Stop: 01/10/17 22:12 Last Admin: 01/10/17 22:28 Dose: 20 mg Famotidine (Pepcid) 20 mg PO DAILY [facility] Last Admin: 01/11/17 10:31 Dose: Not Given Folic Acid (Folic Acid) 1 mg PO DAILY [facility] Last Admin: 01/11/17 10:31 Dose: Not Given Furosemide (Lasix) 20 mg IVPUSH NOW ONE Stop: 01/13/17 10:43 Last Admin: 01/13/17 10:56 Dose: 20 mg Furosemide (Lasix) 40 mg IVPUSH NOW ONE Stop: 01/14/17 11:38 Last Admin: 01/14/17 11:51 Dose: 40 mg Furosemide (Lasix) 40 mg IVPUSH NOW ONE Stop: 01/15/17 09:17 Last Admin: 01/15/17 09:27 Dose: 40 mg Furosemide (Lasix) 40 mg IVPUSH BID [facility] Stop: 01/16/17 21:01 Last Admin: 01/16/17 21:54 Dose: 40 mg Hydralazine HCl (Apresoline) 20 mg PO Q6H PRN PRN Reason: Hypertension Sodium Chloride (Normal Saline) 1,000 mls @ 999 mls/hr IV ONETIME ONE Stop: 01/10/17 19:40 Last Admin: 01/10/17 18:52 Dose: 999 mls/hr Ceftriaxone Sodium 1 gm/ (Sodium Chloride) 100 mls @ 200 mls/hr IV ONETIME ONE Stop: 01/10/17 20:15 Last Admin: 01/10/17 19:59 Dose: 200 mls/hr Magnesium Sulfate 2 gm/ Premix 50 mls @ 25 mls/hr IV ONETIME ONE Stop: 01/10/17 21:46 Last Admin: 01/10/17 21:08 Dose: 25 mls/hr Sodium Chloride (Normal Saline) 1,000 mls @ 250 mls/hr IV ASDIRECTED [facility] Last Admin: 01/11/17 13:27 Dose: 250 mls/hr Sodium Chloride (Normal Saline) 1,000 mls @ 999 mls/hr IV ASDIRECTED [facility] Last Admin: 01/10/17 22:19 Dose: 999 mls/hr Sodium Chloride (Normal Saline) 1,000 mls @ 999 mls/hr IV ONETIME ONE Stop: 01/10/17 22:46 Last Admin: 01/10/17 22:18 Dose: 999 mls/hr Thiamine HCl 200 mg/ Sodium (Chloride) 102 mls @ 204 mls/hr IV ONETIME ONE Stop: 01/10/17 21:55 Last Admin: 01/10/17 22:39 Dose: 204 mls/hr Magnesium Sulfate 2 gm/ Premix 50 mls @ 25 mls/hr IV ONETIME ONE Stop: 01/11/17 00:13 Last Admin: 01/10/17 23:31 Dose: 25 mls/hr Levofloxacin/Dextrose 250 mg/ (Premix) 50 mls @ 50 mls/hr IV ONETIME ONE Stop: 01/10/17 23:15 Last Admin: 01/11/17 00:28 Dose: 50 mls/hr Dextrose/Sodium Chloride (Dextrose 5%-Normal Saline) 1,000 mls @ 150 mls/hr IV ASDIRECTED [facility] Last Admin: 01/12/17 07:24 Dose: 150 mls/hr Magnesium Sulfate/Dextrose 1 (gm/ Premix) 100 mls @ 100 mls/hr IV Q1H [facility] Stop: 01/12/17 10:59 Last Admin: 01/12/17 10:41 Dose: 100 mls/hr Ceftriaxone Sodium 1 gm/ (Sodium Chloride) 100 mls @ 200 mls/hr IV Q24H [facility] Last Admin: 01/17/17 14:59 Dose: 200 mls/hr Dextrose/Sodium Chloride (Dextrose 5%-1/2 Ns) 1,000 mls @ 125 mls/hr IV ASDIRECTED [facility] Last Admin: 01/13/17 06:45 Dose: 125 mls/hr Magnesium Sulfate/Dextrose 1 (gm/ Premix) 100 mls @ 100 mls/hr IV Q1H [facility] Stop: 01/13/17 10:59 Potassium Chloride 10 meq/ (Premix) 100 mls @ 100 mls/hr IV Q1H [facility] Stop: 01/13/17 14:59 Last Admin: 01/13/17 13:08 Dose: 100 mls/hr Magnesium Sulfate 2 gm/ Premix 50 mls @ 25 mls/hr IV ONETIME ONE Stop: 01/13/17 10:41 Last Admin: 01/13/17 08:46 Dose: 25 mls/hr Magnesium Sulfate (Magnesium Sulfate 2 Gm In Water 50 Ml) Confirm Administered Dose 50 mls @ as directed .ROUTE .STK-MED ONE Stop: 01/13/17 08:43 Last Admin: 01/13/17 08:59 Dose: Not Given Sodium Chloride (Normal Saline) 1,000 mls @ 125 mls/hr IV ASDIRECTED [facility] Last Admin: 01/13/17 14:37 Dose: 125 mls/hr Sodium Chloride (Normal Saline) 1,000 mls @ 200 mls/hr IV ASDIRECTED [facility] Last Infusion: 01/14/17 12:40 Dose: 100 mls/hr Potassium Chloride 10 meq/ (Premix) 100 mls @ 100 mls/hr IV Q1H [facility] Stop: 01/14/17 16:29 Last Admin: 01/14/17 16:17 Dose: 100 mls/hr Magnesium Sulfate 4 gm/ Premix 100 mls @ 25 mls/hr IV ONETIME [facility] Stop: 01/14/17 12:29 Last Admin: 01/14/17 08:48 Dose: 25 mls/hr Sodium Chloride (Normal Saline) 1,000 mls @ 100 mls/hr IV ASDIRECTED [facility] Last Admin: 01/15/17 16:00 Dose: 100 mls/hr Azithromycin 500 mg/ Sodium (Chloride) 250 mls @ 250 mls/hr IV Q24H [facility] Last Admin: 01/17/17 13:47 Dose: 250 mls/hr Magnesium Sulfate 2 gm/ Premix 50 mls @ 25 mls/hr IV ONETIME ONE Stop: 01/16/17 06:42 Last Admin: 01/16/17 05:18 Dose: 25 mls/hr Potassium Chloride 10 meq/ (Premix) 100 mls @ 100 mls/hr IV Q1H [facility] Stop: 01/16/17 10:59 Last Admin: 01/16/17 12:38 Dose: 100 mls/hr Dextrose/Water (Dextrose 5% In Water) 1,000 mls @ 75 mls/hr IV ASDIRECTED [facility] Last Admin: 01/16/17 22:00 Dose: 75 mls/hr Multivitamins/Minerals 10 ml/Amino Acids/Electrolytes/Dextrose 1,010 mls @ 40 mls/hr IV Q24H [facility] Magnesium Sulfate 2 gm/ Premix 50 mls @ 25 mls/hr IV ONETIME ONE Stop: 01/16/17 13:14 Last Admin: 01/16/17 11:58 Dose: 25 mls/hr Multivitamins/Minerals 10 ml/Amino Acids/Electrolytes/Dextrose 1,010 mls @ 40 mls/hr IV ONETIME ONE Stop: 01/17/17 16:14 Last Admin: 01/16/17 15:21 Dose: 40 mls/hr Potassium Chloride 10 meq/ (Premix) 100 mls @ 100 mls/hr IV Q1H [facility] Stop: 01/17/17 03:29 Last Admin: 01/17/17 02:46 Dose: 100 mls/hr Magnesium Sulfate (Magnesium Sulfate 2 Gm In Water 50 Ml) 50 mls @ 25 mls/hr IV Q2H [facility] Stop: 01/17/17 01:29 Last Admin: 01/16/17 23:37 Dose: 25 mls/hr Magnesium Sulfate 2 gm/ Premix 50 mls @ 25 mls/hr IV ONETIME ONE Stop: 01/17/17 11:40 Last Admin: 01/17/17 13:38 Dose: Not Given Magnesium Sulfate 2 gm/ Premix 50 mls @ 25 mls/hr IV ONETIME ONE Stop: 01/17/17 12:14 Last Admin: 01/17/17 12:08 Dose: 25 mls/hr Magnesium Sulfate 2 gm/ Premix 50 mls @ 25 mls/hr IV ONETIME ONE Stop: 01/17/17 19:59 Last Admin: 01/17/17 19:14 Dose: 25 mls/hr Potassium Chloride 10 meq/ (Premix) 100 mls @ 100 mls/hr IV Q1H [facility] Stop: 01/17/17 15:59 Last Admin: 01/17/17 16:19 Dose: 100 mls/hr Multivitamins/Minerals 10 ml/Amino Acids/Electrolytes/Dextrose 1,010 mls @ 55 mls/hr IV ONETIME ONE Stop: 01/18/17 09:21 Last Admin: 01/17/17 16:22 Dose: 55 mls/hr Potassium Chloride 10 meq/ (Premix) 100 mls @ 100 mls/hr IV Q1H [facility] Stop: 01/17/17 17:14 Last Admin: 01/17/17 16:23 Dose: Not Given Magnesium Sulfate 4 gm/ Premix 100 mls @ 50 mls/hr IV ONETIME ONE Stop: 01/18/17 11:44 Last Admin: 01/18/17 10:26 Dose: 50 mls/hr Insulin Aspart (Novolog) 0 unit SUBCUT Q6HR [facility] PRN Reason: Protocol Last Admin: 01/11/17 12:06 Dose: Not Given Insulin Aspart (Novolog) 0 unit SUBCUT QIDACANDBED [facility] PRN Reason: Protocol Last Admin: 01/12/17 16:56 Dose: 4 units Insulin Aspart (Novolog) 0 unit SUBCUT Q6HR [facility] PRN Reason: Protocol Last Admin: 01/13/17 00:05 Dose: Not Given Insulin Aspart (Novolog) 0 unit SUBCUT Q6H [facility] PRN Reason: Protocol Last Admin: 01/15/17 04:35 Dose: 3 units Insulin Detemir (Levemir) 10 unit SUBCUT BEDTIME [facility] Last Admin: 01/12/17 21:28 Dose: 10 units Levalbuterol HCl (Xopenex) 1.25 mg NEB Q4HRRT [facility] Last Admin: 01/17/17 05:25 Dose: 1.25 mg Levalbuterol HCl (Xopenex) Confirm Administered Dose 1.25 mg .ROUTE .STK-MED ONE Stop: 01/16/17 18:02 Last Admin: 01/16/17 19:55 Dose: Not Given Levalbuterol HCl (Xopenex) 1.25 mg NEB QID [facility] Last Admin: 01/17/17 20:49 Dose: 1.25 mg Lorazepam (Ativan) 1 - 3 mg IVPUSH Q4H PRN; Protocol PRN Reason: withdrawal Last Admin: 01/11/17 21:44 Dose: 1 mg Lorazepam (Ativan) 2 mg IVPUSH Q4H PRN PRN Reason: Seizures Last Admin: 01/13/17 13:55 Dose: 2 mg Lorazepam (Ativan) 1 - 3 mg IVPUSH ASDIRECTED PRN; Protocol PRN Reason: withdrawal Last Admin: 01/15/17 02:45 Dose: 2 mg Lorazepam (Ativan) 4 mg IVPUSH Q6H [facility] Last Admin: 01/15/17 05:06 Dose: 4 mg Lorazepam (Ativan) 4 mg IVPUSH Q2H PRN PRN Reason: severe agitation/withdrawl Last Admin: 01/14/17 01:42 Dose: 4 mg Magnesium Sulfate (Pharmacy To Dose - Magnesium Replacement) 1 dose .XX ASDIRECTED [facility] Metoprolol Tartrate (Lopressor) 5 mg IVPUSH Q4H PRN PRN Reason: Tachycardia Last Admin: 01/15/17 21:35 Dose: 5 mg Sodium Chloride (Saline Flush) 10 ml FLUSH ASDIRECTED PRN PRN Reason: Keep Vein Open Last Admin: 01/12/17 22:52 Dose: 10 ml Topiramate (Topamax) 25 mg PO BID [facility] Last Admin: 01/11/17 12:19 Dose: Not Given - Exam Quality Assessment: Supplemental Oxygen, Central Line/PICC, Urine Catheter, DVT Prophylaxis General: No Acute Distress, Lethargic HEENT: Pupils Equal Neck: Supple, Trachea Midline Lungs: Normal Respiratory Effort, Decreased Breath Sounds Cardiovascular: Regular Rate GI/Abdominal Exam: Normal Bowel Sounds, Soft, Non-Tender, No Organomegaly, No Distention (Female) Exam: Deferred Back Exam: Normal Inspection Extremities: Normal Inspection Skin: Warm Wound/Incisions: Erythema Neurological: No New Focal Deficit Psy/Mental Status: Alert, Other (more interaction, minimal verbal response; starting to track movement.) - Problem List & Annotations (1) Encephalopathy acute SNOMED Code(s): 8971871 Code(s): G93.40 - ENCEPHALOPATHY, UNSPECIFIED Status: Acute Current Visit : Yes - Problem List Review Problem List Initiated/Reviewed/Updated: Yes - My Orders Last 24 Hours: My Active Orders 01/18/17 10:00 MVI, Adult with Vitamin K [M.V.I. Adult] 10 ml AA 4.25%/Calcium/D25W/Lytes [ Clinimix E 4.25/25] 1,000 ml IV DAILY@1000 01/18/17 12:30 Potassium Chloride 80 meq Lactated Ringers [Ringers, Lactated] 1,000 ml IV ONETIME 01/18/17 23:00 AA 4.25%/Calcium/D25W/Lytes [Clinimix E 4.25/25] 1,000 ml IV DAILY@2300 01/18/17 Dinner NPO [Nothing Per Oral Diet] [DIET] - Assessment Assessment:: 1. S/P suicidal attempts with prescription drug overdose. 2. S/P acute withdrawal syndrome of multiple medications. 3. Altered mental status due--->Metabolic Encephalopathy, improving; EEG results discussed, MRI unremarkable for CVA. 4. Urinary tract infection due to Escherichia coli-->completion of ATB therapy. 5. Rhabdomyolysis, resolving; current CPK--.<500. 6. Pneumonia versus atelectasis versus pulmonary vascular congestion; diuresed. 7. Electrolytes abnormalities: K--added to TPN, Mg; 30 beat run of VT, Mg~1.3-- ->4Gm this am. 8. 2D echo structurally normal heart, grade I diastolic dysfunction, LVEF WNL. 9. Elevated BS, modest increase in insulin yesterday. - Plan Plan:: 1. Continue ICU management-->MS tele in am, 02/19/17. 2. Adjust IV fluid hydration as CPK level has reduced considerably. Determine amount of free water, provided by IVF. 3. IV Lasix 40 mg twice daily, adjust as needed. 4. Bronchodilator therapy with Xopenex every 4 hours as needed. Respiratory therapy evaluation and treatment. 5. Oxygen supplementation therapy to maintain oxygen saturation above 90%. 6. Stop IV antibiotic therapy. 7. DC CIWA, neurochecks as ordered; aspiration precautions--->scheduled change of HOB either 30 or 40 degrees as ordered.. 8. DVT prophylaxis with MJ hose, added lovenox to avoid DVT, high probability, will monitor platelets. 9. Substance abuse counseling and psychiatry consults in the chart for when patient is stable. 10. Social service evaluation for discharge planning. 11. Dietary consult re: TPN. 12. Dextrose for free water, correct sodium---stopped, LR has been started. 13. Consult OT LOS>96 hours, minimal response, currently stable; transfer out of ICU, .
[2017-01-18] MEDS: Fat Emulsion 500 ML IV SCH (17:52)
[2017-01-18] MEDS ORDERED: Haloperidol Lactate 5 MG/ML SDV IVPUSH PRN (21:10)
[2017-01-18] MEDS ORDERED: DEXTROSE IV SCH (23:00)
[2017-01-18] MEDS ORDERED: AMINO ACIDS IV SCH (23:00)
[2017-01-18] MEDS ORDERED: CALCIUM IV SCH (23:00)
[2017-01-18] MEDS ORDERED: LYTES IV SCH (23:00)
[2017-01-18] MEDS: traZODone 50 MG Tab PO PRN (23:50)
[2017-01-19] MEDS: Insulin Aspart 100 Units/ML 3 ML Pen SUBCUT SCH ×4 (00:07→18:24)
[2017-01-19] MEDS: Metoprolol Tartrate 5 MG/5 ML SDV IVPUSH SCH ×5 (00:09→23:50)
[2017-01-19] MEDS: Levalbuterol HCl 1.25 MG/3 ML Neb NEB SCH ×4 (06:19→20:17)
[2017-01-19] MEDS: Morphine 2 MG/ML Syringe IVPUSH PRN ×2 (07:48→18:34)
[2017-01-19] MEDS: Furosemide 40 MG/4 ML VIAL IVPUSH SCH (08:18)
[2017-01-19] MEDS: Pantoprazole 40 MG Vial IVPUSH SCH (08:18)
[2017-01-19] MEDS: Enoxaparin 40 MG/0.4 ML Syringe SUBCUT SCH (08:19)
[2017-01-19] MEDS: Insulin Detemir 100 Units/ML 3 ML Pen SUBCUT SCH ×2 (08:27→20:41)
[2017-01-19] MEDS: Lactated Ringers 1,000 ML IV SCH (10:11)
--- NOTE | 2017-01-19 12:16 | PCM.PN ---
- General Info Date of Service: 01/19/17 Functional Status: Reports: Tolerating Diet, Ambulating (minimal) - Review of Systems General: Reports: Weakness HEENT: Reports: No Symptoms Pulmonary: Reports: Shortness of Breath Cardiovascular: Reports: No Symptoms Gastrointestinal: Reports: No Symptoms Genitourinary: Reports: No Symptoms Musculoskeletal: Reports: No Symptoms Skin: Reports: No Symptoms Neurological: Reports: No Symptoms Psychiatric: Reports: No Symptoms - Patient Data Vitals - Most Recent: Last Vital Signs Temp 37.2 C 01/19/17 08:00 Pulse 89 01/19/17 06:07 Resp 18 01/19/17 08:00 BP 150/78 H 01/19/17 08:00 Pulse Ox 91 L 01/19/17 10:01 Weight - Most Recent: 86.273 kg I&O - Last 24 Hours: Intake & Output 01/18/17 01/19/17 01/19/17 22:59 06:59 14:59 Intake Total 1682 1316 Output Total 775 400 900 Balance 907 916 -900 Lab Results Last 24 Hours: Laboratory Results - last 24 hr 01/18/17 01/18/17 01/19/17 Range/Units 17:46 20:56 00:05 POC Glucose 338 H 249 H 361 H (70-105) mg/dL 01/19/17 Range/Units 06:03 POC Glucose 272 H (70-105) mg/dL Med Orders - Current: Current Medications Dextrose/Water (Dextrose 50% In Water) 50 ml IVPUSH ASDIRECTED PRN PRN Reason: Hypoglycemia Enoxaparin Sodium (Lovenox) 40 mg SUBCUT DAILY [facility] Last Admin: 01/19/17 08:19 Dose: 40 mg Furosemide (Lasix) 40 mg IVPUSH DAILY [facility] Last Admin: 01/19/17 08:18 Dose: 40 mg Haloperidol Lactate (Haldol) 0.5 mg IVPUSH Q6H PRN PRN Reason: restlessness Hydralazine HCl (Apresoline) 10 mg IVPUSH Q2H PRN PRN Reason: Hypertension Last Admin: 01/18/17 20:34 Dose: 10 mg Fat Emulsion Intravenous (Intralipid 20%) 500 mls @ 43 mls/hr IV [id number] [facility] Last Infusion: 01/18/17 19:13 Dose: 43 mls/hr Lactated Ringer's (Ringers, Lactated) 1,000 mls @ 50 mls/hr IV ASDIRECTED [facility] Last Admin: 01/19/17 10:11 Dose: 50 mls/hr Multivitamins/Minerals 10 ml/Amino Acids/Electrolytes/Dextrose 1,010 mls @ 70 mls/hr IV DAILY@1000 [facility] Last Admin: 01/18/17 10:27 Dose: 70 mls/hr Amino Acids/Electrolytes/Dextrose (Clinimix E 4.25/25) 1,000 mls @ 70 mls/hr IV DAILY@2300 [facility] Last Admin: 01/18/17 23:07 Dose: 70 mls/hr Insulin Aspart (Novolog) 0 unit SUBCUT Q6H [facility] PRN Reason: Protocol Last Admin: 01/19/17 06:10 Dose: 9 units Insulin Detemir (Levemir) 10 unit SUBCUT BID [facility] Last Admin: 01/19/17 08:27 Dose: 10 units Levalbuterol HCl (Xopenex) 1.25 mg NEB QIDRT [facility] Last Admin: 01/19/17 10:00 Dose: 1.25 mg Lorazepam (Ativan) 0 mg IVPUSH ASDIRECTED PRN; Protocol PRN Reason: withdrawal Metoprolol Tartrate (Lopressor) 5 mg IVPUSH Q6H [facility] Last Admin: 01/19/17 06:07 Dose: 5 mg Morphine Sulfate (Morphine) 2 mg IVPUSH Q2H PRN PRN Reason: pain, NVPS agitation Last Admin: 01/19/17 07:48 Dose: 2 mg Pantoprazole Sodium (Protonix Iv) 40 mg IVPUSH DAILY [facility] Last Admin: 01/19/17 08:18 Dose: 40 mg Potassium Chloride (Pharmacy To Dose - Potassium Replacement) 1 dose .XX ASDIRECTED [facility] Sodium Chloride (Saline Flush) 10 ml FLUSH ASDIRECTED PRN PRN Reason: Keep Vein Open Last Admin: 01/14/17 19:53 Dose: 10 ml Temazepam (Restoril) 15 mg PO BEDTIME [facility] Trazodone HCl (Trazodone) 50 mg PO BEDTIME PRN PRN Reason: Sleep Last Admin: 01/18/17 23:50 Dose: 50 mg Discontinued Medications Albuterol/Ipratropium (Duoneb 3.0-0.5 Mg/3 Ml) 3 ml NEB Q4HRRT [facility] Last Admin: 01/14/17 09:58 Dose: 3 ml Albuterol/Ipratropium (Duoneb 3.0-0.5 Mg/3 Ml) Confirm Administered Dose 3 ml .ROUTE .STK-MED ONE Stop: 01/13/17 08:53 Last Admin: 01/13/17 09:03 Dose: Not Given Bisacodyl (Dulcolax) 10 mg RECTAL ONETIME ONE Stop: 01/17/17 10:01 Last Admin: 01/17/17 13:37 Dose: Not Given Bisacodyl (Dulcolax) 10 mg RECTAL ONETIME ONE Stop: 01/17/17 13:16 Last Admin: 01/17/17 13:35 Dose: 10 mg Clonidine HCl (Catapres) 0.1 mg PO Q4H PRN PRN Reason: Agitation Dextrose/Water (Dextrose 50% In Water) 50 ml IVPUSH ASDIRECTED PRN PRN Reason: hypoglycemia Diphenhydramine HCl (Benadryl) 50 mg IVPUSH ONETIME ONE Stop: 01/10/17 21:57 Last Admin: 01/10/17 22:28 Dose: 50 mg Famotidine (Pepcid) 20 mg IVPUSH ONETIME ONE Stop: 01/10/17 22:12 Last Admin: 01/10/17 22:28 Dose: 20 mg Famotidine (Pepcid) 20 mg PO DAILY [facility] Last Admin: 01/11/17 10:31 Dose: Not Given Folic Acid (Folic Acid) 1 mg PO DAILY [facility] Last Admin: 01/11/17 10:31 Dose: Not Given Furosemide (Lasix) 20 mg IVPUSH NOW ONE Stop: 01/13/17 10:43 Last Admin: 01/13/17 10:56 Dose: 20 mg Furosemide (Lasix) 40 mg IVPUSH NOW ONE Stop: 01/14/17 11:38 Last Admin: 01/14/17 11:51 Dose: 40 mg Furosemide (Lasix) 40 mg IVPUSH NOW ONE Stop: 01/15/17 09:17 Last Admin: 01/15/17 09:27 Dose: 40 mg Furosemide (Lasix) 40 mg IVPUSH BID [facility] Stop: 01/16/17 21:01 Last Admin: 01/16/17 21:54 Dose: 40 mg Hydralazine HCl (Apresoline) 20 mg PO Q6H PRN PRN Reason: Hypertension Sodium Chloride (Normal Saline) 1,000 mls @ 999 mls/hr IV ONETIME ONE Stop: 01/10/17 19:40 Last Admin: 01/10/17 18:52 Dose: 999 mls/hr Ceftriaxone Sodium 1 gm/ (Sodium Chloride) 100 mls @ 200 mls/hr IV ONETIME ONE Stop: 01/10/17 20:15 Last Admin: 01/10/17 19:59 Dose: 200 mls/hr Magnesium Sulfate 2 gm/ Premix 50 mls @ 25 mls/hr IV ONETIME ONE Stop: 01/10/17 21:46 Last Admin: 01/10/17 21:08 Dose: 25 mls/hr Sodium Chloride (Normal Saline) 1,000 mls @ 250 mls/hr IV ASDIRECTED [facility] Last Admin: 01/11/17 13:27 Dose: 250 mls/hr Sodium Chloride (Normal Saline) 1,000 mls @ [facility] Admin: 01/10/17 22:19 Dose: 999 mls/hr Sodium Chloride (Normal Saline) 1,000 mls @ 999 mls/hr IV ONETIME ONE Stop: 01/10/17 22:46 Last Admin: 01/10/17 22:18 Dose: 999 mls/hr Thiamine HCl 200 mg/ Sodium (Chloride) 102 mls @ 204 mls/hr IV ONETIME ONE Stop: 01/10/17 21:55 Last Admin: 01/10/17 22:39 Dose: 204 mls/hr Magnesium Sulfate 2 gm/ Premix 50 mls @ 25 mls/hr IV ONETIME ONE Stop: 01/11/17 00:13 Last Admin: 01/10/17 23:31 Dose: 25 mls/hr Levofloxacin/Dextrose 250 mg/ (Premix) 50 mls @ 50 mls/hr IV ONETIME ONE Stop: 01/10/17 23:15 Last Admin: 01/11/17 00:28 Dose: 50 mls/hr Dextrose/Sodium Chloride (Dextrose 5%-Normal Saline) 1,000 mls @ 150 mls/hr IV ASDIRECTED [facility] Last Admin: 01/12/17 07:24 Dose: 150 mls/hr Magnesium Sulfate/Dextrose 1 (gm/ Premix) 100 mls @ 100 mls/hr IV Q1H [facility] Stop: 01/12/17 10:59 Last Admin: 01/12/17 10:41 Dose: 100 mls/hr Ceftriaxone Sodium 1 gm/ (Sodium Chloride) 100 mls @ 200 mls/hr IV Q24H [facility] Last Admin: 01/17/17 14:59 Dose: 200 mls/hr Dextrose/Sodium Chloride (Dextrose 5%-1/2 Ns) 1,000 mls @ 125 mls/hr IV ASDIRECTED [facility] Last Admin: 01/13/17 06:45 Dose: 125 mls/hr Magnesium Sulfate/Dextrose 1 (gm/ Premix) 100 mls @ 100 mls/hr IV Q1H [facility] Stop: 01/13/17 10:59 Potassium Chloride 10 meq/ (Premix) 100 mls @ 100 mls/hr IV Q1H [facility] Stop: 01/13/17 14:59 Last Admin: 01/13/17 13:08 Dose: 100 mls/hr Magnesium Sulfate 2 gm/ Premix 50 mls @ 25 mls/hr IV ONETIME ONE Stop: 01/13/17 10:41 Last Admin: 01/13/17 08:46 Dose: 25 mls/hr Magnesium Sulfate (Magnesium Sulfate 2 Gm In Water 50 Ml) Confirm Administered Dose 50 mls @ as directed .ROUTE .ST-MED ONE Stop: 01/13/17 08:43 Last Admin: 01/13/17 08:59 Dose: Not Given Sodium Chloride (Normal Saline) 1,000 mls @ 125 mls/hr IV ASDIRECTED [facility] Last Admin: 01/13/17 14:37 Dose: 125 mls/hr Sodium Chloride (Normal Saline) 1,000 mls @ 200 mls/hr IV ASDIRECTED [facility] Last Infusion: 01/14/17 12:40 Dose: 100 mls/hr Potassium Chloride 10 meq/ (Premix) 100 mls @ 100 mls/hr IV Q1H [facility] Stop: 01/14/17 16:29 Last Admin: 01/14/17 16:17 Dose: 100 mls/hr Magnesium Sulfate 4 gm/ Premix 100 mls @ 25 mls/hr IV ONETIME [facility] Stop: 01/14/17 12:29 Last Admin: 01/14/17 08:48 Dose: 25 mls/hr Sodium Chloride (Normal Saline) 1,000 mls @ 100 mls/hr IV ASDIRECTED [facility] Last Admin: 01/15/17 16:00 Dose: 100 mls/hr Azithromycin 500 mg/ Sodium (Chloride) 250 mls @ 250 mls/hr IV Q24H [facility] Last Admin: 01/17/17 13:47 Dose: 250 mls/hr Magnesium Sulfate 2 gm/ Premix 50 mls @ 25 mls/hr IV ONETIME ONE Stop: 01/16/17 06:42 Last Admin: 01/16/17 05:18 Dose: 25 mls/hr Potassium Chloride 10 meq/ (Premix) 100 mls @ 100 mls/hr IV Q1H [facility] Stop: 01/16/17 10:59 Last Admin: 01/16/17 12:38 Dose: 100 mls/hr Dextrose/Water (Dextrose 5% In Water) 1,000 mls @ 75 mls/hr IV ASDIRECTED [facility] Last Admin: 01/16/17 22:00 Dose: 75 mls/hr Multivitamins/Minerals 10 ml/Amino Acids/Electrolytes/Dextrose 1,010 mls @ 40 mls/hr IV Q24H [facility] Magnesium Sulfate 2 gm/ Premix 50 mls @ 25 mls/hr IV ONETIME ONE Stop: 01/16/17 13:14 Last Admin: 01/16/17 11:58 Dose: 25 mls/hr Multivitamins/Minerals 10 ml/Amino Acids/Electrolytes/Dextrose 1,010 mls @ 40 mls/hr IV ONETIME ONE Stop: 01/17/17 16:14 Last Admin: 01/16/17 15:21 Dose: 40 mls/hr Potassium Chloride 10 meq/ (Premix) 100 mls @ 100 mls/hr IV Q1H [facility] Stop: 01/17/17 03:29 Last Admin: 01/17/17 02:46 Dose: 100 mls/hr Magnesium Sulfate (Magnesium Sulfate 2 Gm In Water 50 Ml) 50 mls @ 25 mls/hr IV Q2H [facility] Stop: 01/17/17 01:29 Last Admin: 01/16/17 23:37 Dose: 25 mls/hr Magnesium Sulfate 2 gm/ Premix 50 mls @ 25 mls/hr IV ONETIME ONE Stop: 01/17/17 11:40 Last Admin: 01/17/17 13:38 Dose: Not Given Magnesium Sulfate 2 gm/ Premix 50 mls @ 25 mls/hr IV ONETIME ONE Stop: 01/17/17 12:14 Last Admin: 01/17/17 12:08 Dose: 25 mls/hr Magnesium Sulfate 2 gm/ Premix 50 mls @ 25 mls/hr IV ONETIME ONE Stop: 01/17/17 19:59 Last Admin: 01/17/17 19:14 Dose: 25 mls/hr Potassium Chloride 10 meq/ (Premix) 100 mls @ 100 mls/hr IV Q1H [facility] Stop: 01/17/17 15:59 Last Admin: 01/17/17 16:19 Dose: 100 mls/hr Multivitamins/Minerals 10 ml/Amino Acids/Electrolytes/Dextrose 1,010 mls @ 55 mls/hr IV ONETIME ONE Stop: 01/18/17 09:21 Last Admin: 01/17/17 16:22 Dose: 55 mls/hr Potassium Chloride 10 meq/ (Premix) 100 mls @ 100 mls/hr IV Q1H [facility] Stop: 01/17/17 17:14 Last Admin: 01/17/17 16:23 Dose: Not Given Magnesium Sulfate 4 gm/ Premix 100 mls @ 50 mls/hr IV ONETIME ONE Stop: 01/18/17 11:44 Last Admin: 01/18/17 10:26 Dose: 50 mls/hr Potassium Chloride 80 meq/ (Lactated Ringer's) 1,040 mls @ 130 mls/hr IV ONETIME ONE Stop: 01/18/17 20:29 Last Admin: 01/18/17 12:04 Dose: 130 mls/hr Insulin Aspart (Novolog) 0 unit SUBCUT Q6HR [facility] PRN Reason: Protocol Last Admin: 01/11/17 12:06 Dose: Not Given Insulin Aspart (Novolog) 0 unit SUBCUT QIDACANDBED [facility] PRN Reason: Protocol Last Admin: 01/12/17 16:56 Dose: 4 units Insulin Aspart (Novolog) 0 unit SUBCUT Q6HR [facility] PRN Reason: Protocol Last Admin: 01/13/17 00:05 Dose: Not Given Insulin Aspart (Novolog) 0 unit SUBCUT Q6H [facility] PRN Reason: Protocol Last Admin: 01/15/17 04:35 Dose: 3 units Insulin Detemir (Levemir) 10 unit SUBCUT BEDTIME [facility] Last Admin: 01/12/17 21:28 Dose: 10 units Levalbuterol HCl (Xopenex) 1.25 mg NEB Q4HRRT [facility] Last Admin: 01/17/17 05:25 Dose: 1.25 mg Levalbuterol HCl (Xopenex) Confirm Administered Dose 1.25 mg .ROUTE .STK-MED ONE Stop: 01/16/17 18:02 Last Admin: 01/16/17 19:55 Dose: Not Given Levalbuterol HCl (Xopenex) 1.25 mg NEB QID [facility] Last Admin: 01/17/17 20:49 Dose: 1.25 mg Lorazepam (Ativan) 1 - 3 mg IVPUSH Q4H PRN; Protocol PRN Reason: withdrawal Last Admin: 01/11/17 21:44 Dose: 1 mg Lorazepam (Ativan) 2 mg IVPUSH Q4H PRN PRN Reason: Seizures Last Admin: 01/13/17 13:55 Dose: 2 mg Lorazepam (Ativan) 1 - 3 mg IVPUSH ASDIRECTED PRN; Protocol PRN Reason: withdrawal Last Admin: 01/15/17 02:45 Dose: 2 mg Lorazepam (Ativan) 4 mg IVPUSH Q6H [facility] Last Admin: 01/15/17 05:06 Dose: 4 mg Lorazepam (Ativan) 4 mg IVPUSH Q2H PRN PRN Reason: severe agitation/withdrawl Last Admin: 01/14/17 01:42 Dose: 4 mg Magnesium Sulfate (Pharmacy To Dose - Magnesium Replacement) 1 dose .XX ASDIRECTED [facility] Metoprolol Tartrate (Lopressor) 5 mg IVPUSH Q4H PRN PRN Reason: Tachycardia Last Admin: 01/15/17 21:35 Dose: 5 mg Sodium Chloride (Saline Flush) 10 ml FLUSH ASDIRECTED PRN PRN Reason: Keep Vein Open Last Admin: 01/12/17 22:52 Dose: 10 ml Topiramate (Topamax) 25 mg PO BID [facility] Last Admin: 01/11/17 12:19 Dose: Not Given - Exam Quality Assessment: Urine Catheter, DVT Prophylaxis, Skin Breakdown General: Alert, Oriented, No Acute Distress HEENT: Pupils Equal, Pupils Reactive, EOMI Neck: Supple, Trachea Midline, No JVD Lungs: Normal Respiratory Effort, Decreased Breath Sounds Cardiovascular: Regular Rate, Regular Rhythm GI/Abdominal Exam: Normal Bowel Sounds, Soft, Non-Tender, No Organomegaly, No Distention (Female) Exam: Deferred Back Exam: Normal Inspection Extremities: Normal Inspection, Non-Tender Skin: Warm Neurological: No New Focal Deficit, Normal Speech Psy/Mental Status: Alert - Problem List & Annotations (1) Encephalopathy acute SNOMED Code(s): 8962309 Code(s): G93.40 - ENCEPHALOPATHY, UNSPECIFIED Status: Acute Current Visit : Yes (2) Personality disorder in adult SNOMED Code(s): 65753847 Code(s): F60.9 - PERSONALITY DISORDER, UNSPECIFIED Status: Acute Current Visit: Yes (3) Suicide attempt by multiple drug overdose SNOMED Code(s): 61885868 Code(s): T50.902A - POISONING BY UNSP DRUG/MEDS/BIOL SUBST, SELF-HARM, INIT Status: Acute Current Visit: Yes - Problem List Review Problem List Initiated/Reviewed/Updated: Yes - My Orders Last 24 Hours: My Active Orders 01/18/17 14:46 Consult to Occupational Therapy [OT Evaluation and Treatment] [CONS] Routine 01/18/17 17:00 Consult to Speech Language Pathology [STUDY DIRECTOR Evaluation and Treatment] [CONS] Routine 01/18/17 18:58 Communication Order [RC] ASDIRECTED 01/18/17 21:10 Haloperidol Lactate [Haldol] 0.5 mg IVPUSH Q6H PRN 01/18/17 23:00 AA 4.25%/Calcium/D25W/Lytes [Clinimix E 4.25/25] 1,000 ml IV DAILY@2300 01/18/17 23:24 traZODone 50 mg PO BEDTIME PRN 01/19/17 09:19 Admission Status [Patient Status] [ADT] Routine 01/19/17 11:15 Up With Assistance [RC] ASDIRECTED 01/19/17 21:00 Temazepam [Restoril] 15 mg PO BEDTIME 01/19/17 Breakfast Full Liquid Diet [DIET] - Assessment Assessment:: 1. S/P suicidal attempts with prescription drug overdose. 2. S/P acute withdrawal syndrome of multiple medications. 3. Altered mental status due--->Metabolic Encephalopathy,resolved. 4. Urinary tract infection due to Escherichia coli-->completed ATB therapy. 5. Rhabdomyolysis, resolving; current CPK--.<500; resolved. 6. Pneumonia versus atelectasis versus pulmonary vascular congestion; diuresed. 7. Electrolytes abnormalities: K--added to TPN, Mg; 30 beat run of VT, Mg~1.3-- ->4Gm this am. 8. 2D echo structurally normal heart, grade I diastolic dysfunction, LVEF WNL. 9. Elevated BS, modest increase in insulin yesterday. 10. Swallow eval completed, no restrictions will advance diet slowly. - Plan Plan:: 1. Transfer to [facility], room 8. 2. Continue LR at 50 cc/hr; start full liquids; complete current TPN, dc today. 3. IV Lasix 40 mg twice daily, adjust as needed. 4. Bronchodilator therapy with Xopenex every 4 hours as needed. Respiratory therapy evaluation and treatment. 5. Oxygen supplementation therapy to maintain oxygen saturation above 90%. 6. DC avalos later today 7. DC plan will change to psych/substance abuse needs; doubt need for SNF, will reassess after PT/OT eval. 8. DVT prophylaxis with MJ hose/Lovenox. 9. Substance abuse counseling and psychiatry consults in the chart for when patient is stable; Dr Gallardo VM for consult today if possible; Mason Mckeon on Saturday, 01/21. 10. Social service evaluation for discharge planning. 11. Dietary consult re: TPN--->stopped, see diet advanced to oral intake. LOS>96 hours, minimal response, currently stable; transfer out of ICU, .
[2017-01-19] MEDS: LYTES IV SCH ×2 (20:00)
[2017-01-19] MEDS: VITAMIN K IV SCH ×2 (20:00)
[2017-01-19] MEDS: CALCIUM IV SCH ×2 (20:00)
[2017-01-19] MEDS: MVI IV SCH ×2 (20:00)
[2017-01-19] MEDS: [UNRECOGNIZED DRUG - OTHER] IV SCH ×2 (20:00)
[2017-01-19] MEDS: traZODone 50 MG Tab PO PRN (20:41)
[2017-01-19] MEDS: Temazepam 15 MG Cap PO SCH (20:43)
[2017-01-20] MEDS: Metoprolol Tartrate 5 MG/5 ML SDV IVPUSH SCH ×2 (05:59→12:02)
[2017-01-20] MEDS: Lactated Ringers 1,000 ML IV SCH ×2 (05:59→21:35)
[2017-01-20] MEDS: Levalbuterol HCl 1.25 MG/3 ML Neb NEB SCH ×4 (06:23→20:17)
[2017-01-20] MEDS: Insulin Aspart 100 Units/ML 3 ML Pen SUBCUT SCH ×4 (07:06→21:20)
[2017-01-20] MEDS: Pantoprazole 40 MG Vial IVPUSH SCH (09:18)
[2017-01-20] MEDS: Furosemide 40 MG/4 ML VIAL IVPUSH SCH (09:18)
[2017-01-20] MEDS: Enoxaparin 40 MG/0.4 ML Syringe SUBCUT SCH (09:18)
[2017-01-20] MEDS: Insulin Detemir 100 Units/ML 3 ML Pen SUBCUT SCH ×2 (09:19→21:23)
[2017-01-20] MEDS ORDERED: QUEtiapine 25 MG Tab PO SCH (10:45)
--- NOTE | 2017-01-20 11:11 | PCM.PN ---
- General Info Date of Service: 01/20/17 Functional Status: Reports: Tolerating Diet - Review of Systems General: Reports: Weakness HEENT: Reports: No Symptoms Pulmonary: Reports: No Symptoms Cardiovascular: Reports: No Symptoms Gastrointestinal: Reports: No Symptoms Genitourinary: Reports: No Symptoms Musculoskeletal: Reports: No Symptoms Skin: Reports: No Symptoms Neurological: Reports: No Symptoms Psychiatric: Reports: No Symptoms - Patient Data Vitals - Most Recent: Last Vital Signs Temp 37.1 C 01/19/17 16:22 Pulse 82 01/20/17 05:59 Resp 14 01/19/17 16:22 BP 125/82 01/20/17 05:59 Pulse Ox 91 L 01/20/17 06:23 Weight - Most Recent: 87.226 kg I&O - Last 24 Hours: Intake & Output 01/19/17 01/20/17 01/20/17 22:59 06:59 14:59 Intake Total 784 1371 Output Total 150 1250 Balance 634 121 Lab Results Last 24 Hours: Laboratory Results - last 24 hr 01/19/17 01/19/17 01/19/17 Range/Units 12:28 18:18 20:40 POC Glucose 328 H 277 H 183 H (70-105) mg/dL 01/20/17 Range/Units 06:01 POC Glucose 127 H (70-105) mg/dL Med Orders - Current: Current Medications Dextrose/Water (Dextrose 50% In Water) 50 ml IVPUSH ASDIRECTED PRN PRN Reason: Hypoglycemia Enoxaparin Sodium (Lovenox) 40 mg SUBCUT DAILY [facility] Last Admin: 01/20/17 09:18 Dose: 40 mg Fluoxetine HCl (Prozac) 20 mg PO DAILY [facility] Folic Acid (Folic Acid) 1 mg PO DAILY [facility] Furosemide (Lasix) 40 mg IVPUSH DAILY [facility] Last Admin: 01/20/17 09:18 Dose: 40 mg Haloperidol Lactate (Haldol) 0.5 mg IVPUSH Q6H PRN PRN Reason: restlessness Hydralazine HCl (Apresoline) 10 mg IVPUSH Q2H PRN PRN Reason: Hypertension Last Admin: 01/18/17 20:34 Dose: 10 mg Lactated Ringer's (Ringers, Lactated) 1,000 mls @ 50 mls/hr IV ASDIRECTED [facility] Last Admin: 01/20/17 05:59 Dose: 50 mls/hr Insulin Aspart (Novolog) 0 unit SUBCUT QIDACANDBED [facility] PRN Reason: Protocol Last Admin: 01/20/17 07:06 Dose: Not Given Insulin Detemir (Levemir) 10 unit SUBCUT BID [facility] Last Admin: 01/20/17 09:19 Dose: 10 units Levalbuterol HCl (Xopenex) 1.25 mg NEB QIDRT [facility] Last Admin: 01/20/17 06:23 Dose: 1.25 mg Lorazepam (Ativan) 0 mg IVPUSH ASDIRECTED PRN; Protocol PRN Reason: withdrawal Metoprolol Tartrate (Lopressor) 5 mg IVPUSH Q6H [facility] Last Admin: 01/20/17 05:59 Dose: 5 mg Morphine Sulfate (Morphine) 2 mg IVPUSH Q2H PRN PRN Reason: pain, NVPS agitation Last Admin: 01/19/17 18:34 Dose: 2 mg Pantoprazole Sodium (Protonix Iv) 40 mg IVPUSH DAILY [facility] Last Admin: 01/20/17 09:18 Dose: 40 mg Potassium Chloride (Pharmacy To Dose - Potassium Replacement) 1 dose .XX ASDIRECTED [facility] Quetiapine Fumarate (Seroquel) 50 mg PO BEDTIME [facility] Sodium Chloride (Saline Flush) 10 ml FLUSH ASDIRECTED PRN PRN Reason: Keep Vein Open Last Admin: 01/14/17 19:53 Dose: 10 ml Temazepam (Restoril) 15 mg PO BEDTIME [facility] Last Admin: 01/19/17 20:43 Dose: 15 mg Thiamine HCl (Vitamin B-1) 100 mg PO DAILY [facility] Topiramate (Topamax) 25 mg PO BID [facility] Discontinued Medications Albuterol/Ipratropium (Duoneb 3.0-0.5 Mg/3 Ml) 3 ml NEB Q4HRRT [facility] Last Admin: 01/14/17 09:58 Dose: 3 ml Albuterol/Ipratropium (Duoneb 3.0-0.5 Mg/3 Ml) Confirm Administered Dose 3 ml .ROUTE .STK-MED ONE Stop: 01/13/17 08:53 Last Admin: 01/13/17 09:03 Dose: Not Given Bisacodyl (Dulcolax) 10 mg RECTAL ONETIME ONE Stop: 01/17/17 10:01 Last Admin: 01/17/17 13:37 Dose: Not Given Bisacodyl (Dulcolax) 10 mg RECTAL ONETIME ONE Stop: 01/17/17 13:16 Last Admin: 01/17/17 13:35 Dose: 10 mg Clonidine HCl (Catapres) 0.1 mg PO Q4H PRN PRN Reason: Agitation Dextrose/Water (Dextrose 50% In Water) 50 ml IVPUSH ASDIRECTED PRN PRN Reason: hypoglycemia Diphenhydramine HCl (Benadryl) 50 mg IVPUSH ONETIME ONE Stop: 01/10/17 21:57 Last Admin: 01/10/17 22:28 Dose: 50 mg Famotidine (Pepcid) 20 mg IVPUSH ONETIME ONE Stop: 01/10/17 22:12 Last Admin: 01/10/17 22:28 Dose: 20 mg Famotidine (Pepcid) 20 mg PO DAILY [facility] Last Admin: 01/11/17 10:31 Dose: Not Given Folic Acid (Folic Acid) 1 mg PO DAILY [facility] Last Admin: 01/11/17 10:31 Dose: Not Given Furosemide (Lasix) 20 mg IVPUSH NOW ONE Stop: 01/13/17 10:43 Last Admin: 01/13/17 10:56 Dose: 20 mg Furosemide (Lasix) 40 mg IVPUSH NOW ONE Stop: 01/14/17 11:38 Last Admin: 01/14/17 11:51 Dose: 40 mg Furosemide (Lasix) 40 mg IVPUSH NOW ONE Stop: 01/15/17 09:17 Last Admin: 01/15/17 09:27 Dose: 40 mg Furosemide (Lasix) 40 mg IVPUSH BID [facility] Stop: 01/16/17 21:01 Last Admin: 01/16/17 21:54 Dose: 40 mg Hydralazine HCl (Apresoline) 20 mg PO Q6H PRN PRN Reason: Hypertension Sodium Chloride (Normal Saline) 1,000 mls @ 999 mls/hr IV ONETIME ONE Stop: 01/10/17 19:40 Last Admin: 01/10/17 18:52 Dose: 999 mls/hr Ceftriaxone Sodium 1 gm/ (Sodium Chloride) 100 mls @ 200 mls/hr IV ONETIME ONE Stop: 01/10/17 20:15 Last Admin: 01/10/17 19:59 Dose: 200 mls/hr Magnesium Sulfate 2 gm/ Premix 50 mls @ 25 mls/hr IV ONETIME ONE Stop: 01/10/17 21:46 Last Admin: 01/10/17 21:08 Dose: 25 mls/hr Sodium Chloride (Normal Saline) 1,000 mls @ 250 mls/hr IV ASDIRECTED [facility] Last Admin: 01/11/17 13:27 Dose: 250 mls/hr Sodium Chloride (Normal Saline) 1,000 mls @ 999 mls/hr IV ASDIRECTED [facility] Last Admin: 01/10/17 22:19 Dose: 999 mls/hr Sodium Chloride (Normal Saline) 1,000 mls @ 999 mls/hr IV ONETIME ONE Stop: 01/10/17 22:46 Last Admin: 01/10/17 22:18 Dose: 999 mls/hr Thiamine HCl 200 mg/ Sodium (Chloride) 102 mls @ 204 mls/hr IV ONETIME ONE Stop: 01/10/17 21:55 Last Admin: 01/10/17 22:39 Dose: 204 mls/hr Magnesium Sulfate 2 gm/ Premix 50 mls @ 25 mls/hr IV ONETIME ONE Stop: 01/11/17 00:13 Last Admin: 01/10/17 23:31 Dose: 25 mls/hr Levofloxacin/Dextrose 250 mg/ (Premix) 50 mls @ 50 mls/hr IV ONETIME ONE Stop: 01/10/17 23:15 Last Admin: 01/11/17 00:28 Dose: 50 mls/hr Dextrose/Sodium Chloride (Dextrose 5%-Normal Saline) 1,000 mls @ 150 mls/hr IV ASDIRECTED [facility] Last Admin: 01/12/17 07:24 Dose: 150 mls/hr Magnesium Sulfate/Dextrose 1 (gm/ Premix) 100 mls @ 100 mls/hr IV Q1H [facility] Stop: 01/12/17 10:59 Last Admin: 01/12/17 10:41 Dose: 100 mls/hr Ceftriaxone Sodium 1 gm/ (Sodium Chloride) 100 mls @ 200 mls/hr IV Q24H [facility] Last Admin: 01/17/17 14:59 Dose: 200 mls/hr Dextrose/Sodium Chloride (Dextrose 5%-1/2 Ns) 1,000 mls @ 125 mls/hr IV ASDIRECTED [facility] Last Admin: 01/13/17 06:45 Dose: 125 mls/hr Magnesium Sulfate/Dextrose 1 (gm/ Premix) 100 mls @ 100 mls/hr IV Q1H [facility] Stop: 01/13/17 10:59 Potassium Chloride 10 meq/ (Premix) 100 mls @ 100 mls/hr IV Q1H [facility] Stop: 01/13/17 14:59 Last Admin: 01/13/17 13:08 Dose: 100 mls/hr Magnesium Sulfate 2 gm/ Premix 50 mls @ 25 mls/hr IV ONETIME ONE Stop: 01/13/17 10:41 Last Admin: 01/13/17 08:46 Dose: 25 mls/hr Magnesium Sulfate (Magnesium Sulfate 2 Gm In Water 50 Ml) Confirm Administered Dose 50 mls @ as directed .ROUTE .[facility] ONE Stop: 01/13/17 08:43 Last Admin: 01/13/17 08:59 Dose: Not Given Sodium Chloride (Normal Saline) 1,000 mls @ 125 mls/hr IV ASDIRECTED [facility] Last Admin: 01/13/17 14:37 Dose: 125 mls/hr Sodium Chloride (Normal Saline) 1,000 mls @ 200 mls/hr IV ASDIRECTED [facility] Last Infusion: 01/14/17 12:40 Dose: 100 mls/hr Potassium Chloride 10 meq/ (Premix) 100 mls @ 100 mls/hr IV Q1H [facility] Stop: 01/14/17 16:29 Last Admin: 01/14/17 16:17 Dose: 100 mls/hr Magnesium Sulfate 4 gm/ Premix 100 mls @ 25 mls/hr IV ONETIME [facility] Stop: 01/14/17 12:29 Last Admin: 01/14/17 08:48 Dose: 25 mls/hr Sodium Chloride (Normal Saline) 1,000 mls @ 100 mls/hr IV ASDIRECTED [facility] Last Admin: 01/15/17 16:00 Dose: 100 mls/hr Azithromycin 500 mg/ Sodium (Chloride) 250 mls @ 250 mls/hr IV Q24H [facility] Last Admin: 01/17/17 13:47 Dose: 250 mls/hr Magnesium Sulfate 2 gm/ Premix 50 mls @ 25 mls/hr IV ONETIME ONE Stop: 01/16/17 06:42 Last Admin: 01/16/17 05:18 Dose: 25 mls/hr Potassium Chloride 10 meq/ (Premix) 100 mls @ 100 mls/hr IV Q1H [facility] Stop: 01/16/17 10:59 Last Admin: 01/16/17 12:38 Dose: 100 mls/hr Dextrose/Water (Dextrose 5% In Water) 1,000 mls @ 75 mls/hr IV ASDIRECTED [facility] Last Admin: 01/16/17 22:00 Dose: 75 mls/hr Multivitamins/Minerals 10 ml/Amino Acids/Electrolytes/Dextrose 1,010 mls @ 40 mls/hr IV Q24H [facility] Magnesium Sulfate 2 gm/ Premix 50 mls @ 25 mls/hr IV ONETIME ONE Stop: 01/16/17 13:14 Last Admin: 01/16/17 11:58 Dose: 25 mls/hr Fat Emulsion Intravenous (Intralipid 20%) 500 mls @ 43 mls/hr IV [id number] [facility] Last Infusion: 01/18/17 19:13 Dose: 43 mls/hr Multivitamins/Minerals 10 ml/Amino Acids/Electrolytes/Dextrose 1,010 mls @ 40 mls/hr IV ONETIME ONE Stop: 01/17/17 16:14 Last Admin: 01/16/17 15:21 Dose: 40 mls/hr Potassium Chloride 10 meq/ (Premix) 100 mls @ 100 mls/hr IV Q1H [facility] Stop: 01/17/17 03:29 Last Admin: 01/17/17 02:46 Dose: 100 mls/hr Magnesium Sulfate (Magnesium Sulfate 2 Gm In Water 50 Ml) 50 mls @ 25 mls/hr IV Q2H [facility] Stop: 01/17/17 01:29 Last Admin: 01/16/17 23:37 Dose: 25 mls/hr Magnesium Sulfate 2 gm/ Premix 50 mls @ 25 mls/hr IV ONETIME ONE Stop: 01/17/17 11:40 Last Admin: 01/17/17 13:38 Dose: Not Given Magnesium Sulfate 2 gm/ Premix 50 mls @ 25 mls/hr IV ONETIME ONE Stop: 01/17/17 12:14 Last Admin: 01/17/17 12:08 Dose: 25 mls/hr Magnesium Sulfate 2 gm/ Premix 50 mls @ 25 mls/hr IV ONETIME ONE Stop: 01/17/17 19:59 Last Admin: 01/17/17 19:14 Dose: 25 mls/hr Potassium Chloride 10 meq/ (Premix) 100 mls @ 100 mls/hr IV Q1H [facility] Stop: 01/17/17 15:59 Last Admin: 01/17/17 16:19 Dose: 100 mls/hr Multivitamins/Minerals 10 ml/Amino Acids/Electrolytes/Dextrose 1,010 mls @ 55 mls/hr IV ONETIME ONE Stop: 01/18/17 09:21 Last Admin: 01/17/17 16:22 Dose: 55 mls/hr Potassium Chloride 10 meq/ (Premix) 100 mls @ 100 mls/hr IV Q1H [facility] Stop: 01/17/17 17:14 Last Admin: 01/17/17 16:23 Dose: Not Given Multivitamins/Minerals 10 ml/Amino Acids/Electrolytes/Dextrose 1,010 mls @ 70 mls/hr IV DAILY@1000 [facility] Last Admin: 01/19/17 20:00 Dose: Not Given Amino Acids/Electrolytes/Dextrose (Clinimix E 4.25/25) 1,000 mls @ 70 mls/hr IV DAILY@2300 [facility] Last Admin: 01/18/17 23:07 Dose: 70 mls/hr Magnesium Sulfate 4 gm/ Premix 100 mls @ 50 mls/hr IV ONETIME ONE Stop: 01/18/17 11:44 Last Admin: 01/18/17 10:26 Dose: 50 mls/hr Potassium Chloride 80 meq/ (Lactated Ringer's) 1,040 mls @ 130 mls/hr IV ONETIME ONE Stop: 01/18/17 20:29 Last Admin: 01/18/17 12:04 Dose: 130 mls/hr Insulin Aspart (Novolog) 0 unit SUBCUT Q6HR [facility] PRN Reason: Protocol Last Admin: 01/11/17 12:06 Dose: Not Given Insulin Aspart (Novolog) 0 unit SUBCUT QIDACANDBED [facility] PRN Reason: Protocol Last Admin: 01/12/17 16:56 Dose: 4 units Insulin Aspart (Novolog) 0 unit SUBCUT Q6HR [facility] PRN Reason: Protocol Last Admin: 01/13/17 00:05 Dose: Not Given Insulin Aspart (Novolog) 0 unit SUBCUT Q6H [facility] PRN Reason: Protocol Last Admin: 01/15/17 04:35 Dose: 3 units Insulin Aspart (Novolog) 0 unit SUBCUT Q6H [facility] PRN Reason: Protocol Last Admin: 01/19/17 18:24 Dose: 9 units Insulin Detemir (Levemir) 10 unit SUBCUT BEDTIME [facility] Last Admin: 01/12/17 21:28 Dose: 10 units Levalbuterol HCl (Xopenex) 1.25 mg NEB Q4HRRT [facility] Last Admin: 01/17/17 05:25 Dose: 1.25 mg Levalbuterol HCl (Xopenex) Confirm Administered Dose 1.25 mg .ROUTE .[facility] ONE Stop: 01/16/17 18:02 Last Admin: 01/16/17 19:55 Dose: Not Given Levalbuterol HCl (Xopenex) 1.25 mg NEB QID [facility] Last Admin: 01/17/17 20:49 Dose: 1.25 mg Lorazepam (Ativan) 1 - 3 mg IVPUSH Q4H PRN; Protocol PRN Reason: withdrawal Last Admin: 01/11/17 21:44 Dose: 1 mg Lorazepam (Ativan) 2 mg IVPUSH Q4H PRN PRN Reason: Seizures Last Admin: 01/13/17 13:55 Dose: 2 mg Lorazepam (Ativan) 1 - 3 mg IVPUSH ASDIRECTED PRN; Protocol PRN Reason: withdrawal Last Admin: 01/15/17 02:45 Dose: 2 mg Lorazepam (Ativan) 4 mg IVPUSH Q6H [facility] Last Admin: 01/15/17 05:06 Dose: 4 mg Lorazepam (Ativan) 4 mg IVPUSH Q2H PRN PRN Reason: severe agitation/withdrawl Last Admin: 01/14/17 01:42 Dose: 4 mg Magnesium Sulfate (Pharmacy To Dose - Magnesium Replacement) 1 dose .XX ASDIRECTED [facility] Metoprolol Tartrate (Lopressor) 5 mg IVPUSH Q4H PRN PRN Reason: Tachycardia Last Admin: 01/15/17 21:35 Dose: 5 mg Quetiapine Fumarate (Seroquel) 50 mg PO BEDTIME [facility] Last Admin: 01/20/17 10:53 Dose: Not Given Sodium Chloride (Saline Flush) 10 ml FLUSH ASDIRECTED PRN PRN Reason: Keep Vein Open Last Admin: 01/12/17 22:52 Dose: 10 ml Topiramate (Topamax) 25 mg PO BID [facility] Last Admin: 01/11/17 12:19 Dose: Not Given Trazodone HCl (Trazodone) 50 mg PO BEDTIME PRN PRN Reason: Sleep Last Admin: 01/19/17 20:41 Dose: 50 mg - Exam Quality Assessment: Urine Catheter, DVT Prophylaxis General: Alert, Oriented, No Acute Distress HEENT: Pupils Equal, Pupils Reactive, EOMI Neck: Supple, Trachea Midline, No JVD Lungs: Clear to Auscultation, Normal Respiratory Effort Cardiovascular: Regular Rate, Regular Rhythm GI/Abdominal Exam: Normal Bowel Sounds, Soft, Non-Tender, No Organomegaly, No Distention (Female) Exam: Deferred Back Exam: Normal Inspection Extremities: Normal Inspection Skin: Warm Neurological: No New Focal Deficit, Normal Speech Psy/Mental Status: Alert - Problem List & Annotations (1) Encephalopathy acute SNOMED Code(s): 8813443 Code(s): G93.40 - ENCEPHALOPATHY, UNSPECIFIED Status: Acute Current Visit : Yes (2) Personality disorder in adult SNOMED Code(s): 55383328 Code(s): F60.9 - PERSONALITY DISORDER, UNSPECIFIED Status: Acute Current Visit: Yes (3) Suicide attempt by multiple drug overdose SNOMED Code(s): 56501126 Code(s): T50.902A - POISONING BY UNSP DRUG/MEDS/BIOL SUBST, SELF-HARM, INIT Status: Acute Current Visit: Yes - Problem List Review Problem List Initiated/Reviewed/Updated: Yes - My Orders Last 24 Hours: My Active Orders 01/19/17 11:15 Up With Assistance [RC] ASDIRECTED 01/19/17 13:23 Neuro Check [RC] BID 01/19/17 21:00 Temazepam [Restoril] 15 mg PO BEDTIME 01/20/17 07:00 Insulin Aspart [NovoLOG] See Protocol SUBCUT QIDACANDBED 01/20/17 21:00 QUEtiapine [SEROquel] 50 mg PO BEDTIME 01/20/17 Lunch Soft Diet [DIET] - Assessment Assessment:: 1. S/P suicidal attempts with prescription drug overdose. 2. S/P acute withdrawal syndrome of multiple medications. 3. Altered mental status due--->Metabolic Encephalopathy,resolved. 4. Urinary tract infection due to Escherichia coli-->completed ATB therapy. 5. Rhabdomyolysis, resolving; current CPK--.<500; resolved. 6. Pneumonia versus atelectasis versus pulmonary vascular congestion; diuresed-- ->resolved. 7. Electrolytes abnormalities: start oral replacement. 8. 2D echo structurally normal heart, grade I diastolic dysfunction, LVEF WNL. 9. Elevated BS, modest increase in insulin yesterday. 10. Swallow eval completed, no restrictions will advance diet slowly-->soft diet today, patient refused liquids for breakfast. - Plan Plan:: 1. Transfer to [facility], room 8. 2. Continue LR at 50 cc/hr; start full liquids; complete current TPN, dc today. 3. IV Lasix 40 mg twice daily, adjust as needed. 4. Bronchodilator therapy with Xopenex every 4 hours as needed. Respiratory therapy evaluation and treatment. 5. Oxygen supplementation therapy to maintain oxygen saturation above 90%. 6. DC robbie later today 7. DC plan will change to psych/substance abuse needs; doubt need for SNF, will reassess after PT/OT eval. 8. DVT prophylaxis with MJ hose/Lovenox. 9. Substance abuse counseling and psychiatry consults in the chart for when patient is stable; Dr Gallardo VM for consult today if possible; Mason Mckeon on Saturday, 01/21. 10. Social service evaluation for discharge planning. 11. Dietary consult re: TPN--->stopped, see diet advanced to oral intake. 12. DC robbie; PICC for IV needs. LOS>96 hours, additional assessment by page/ pending; meds were added by Dr Gallardo; will be committed at [place].
[2017-01-20] MEDS: Potassium Chloride 20 MEQ Tab.ER PO SCH ×2 (12:39→21:17)
[2017-01-20] MEDS: Pantoprazole 40 MG Tab.CR PO SCH ×2 (12:39→17:15)
[2017-01-20] MEDS: Lisinopril 10 MG Tab PO SCH (17:50)
[2017-01-20] MEDS: QUEtiapine 25 MG Tab PO SCH (21:18)
[2017-01-20] MEDS: Topiramate 25 MG Tab PO SCH (21:18)
[2017-01-20] MEDS: Temazepam 15 MG Cap PO SCH (21:18)
[2017-01-21] MEDS: Pantoprazole 40 MG Tab.CR PO SCH ×2 (06:32→17:54)
[2017-01-21] MEDS: Levalbuterol HCl 1.25 MG/3 ML Neb NEB SCH ×4 (06:36→22:00)
[2017-01-21] MEDS: Insulin Aspart 100 Units/ML 3 ML Pen SUBCUT SCH ×4 (08:11→21:42)
[2017-01-21] MEDS: Insulin Detemir 100 Units/ML 3 ML Pen SUBCUT SCH ×2 (08:12→21:38)
[2017-01-21] MEDS: Lisinopril 10 MG Tab PO SCH (08:13)
[2017-01-21] MEDS: Enoxaparin 40 MG/0.4 ML Syringe SUBCUT SCH (08:13)
[2017-01-21] MEDS: Potassium Chloride 20 MEQ Tab.ER PO SCH ×2 (08:14→21:35)
[2017-01-21] MEDS: Thiamine 100 MG Tab PO SCH (08:14)
[2017-01-21] MEDS: Folic Acid 1 MG Tab PO SCH (08:14)
[2017-01-21] MEDS: FLUoxetine 20 MG Cap PO SCH (08:14)
[2017-01-21] MEDS: Topiramate 25 MG Tab PO SCH ×2 (08:15→21:35)
[2017-01-21] MEDS: Hydrochlorothiazide/Triamterene 50-75 MG Tab PO SCH (08:15)
--- NOTE | 2017-01-21 08:25 | CONS ---
CONSULTING PHYSICIAN: Eben Gallardo MD DATE OF CONSULTATION: 01/20/2017 TITLE: Psychiatric evaluation. This is a 60-minute inpatient clinical event. IDENTIFICATION: The patient is a 51-year-old female who is admitted to the inpatient medical unit at [facility] on 01/10/2017. She is seen for psychiatric evaluation. CHIEF COMPLAINT: "Combination of all other things. I just basically reviewed." HISTORY OF PRESENT ILLNESS: The patient is a 51-year-old female who is admitted to the inpatient MICU at [facility] on 01/10/2017, in the phase of overdose and alcohol intoxication. The patient was recently transferred to the regular medical unit after she was stabilized. At this point in time, she states that she has been drinking heavily for about 5 years. She states it has been on the order of "at least a few drinks a day." She states she drinks hard liquor. She states that she has been struggling with "some depression" for at least the past 6 months and reports a lot of "family problems" involving her children. She states that "mostly just mainly depression" but notes that there are "mood swings for sure." She states that she is increasingly isolative, has lack of appetite, lack of energy, lack of interest. She is having more crying episodes and she will sleep up to 12 hours a day, although she states that the sleep is disrupted and she does not feel very rested at any time during the day. She reports racing thoughts and ruminations and she states a lot of the reason she is drinking so heavily is "to help me sleep." She states that she feels safe at this point in time. She denies any suicidal or homicidal ideation, but does acknowledge she was suicidal prior to admission. Denies that she is having any psychotic, delusional, or paranoid symptoms at this point in time. She denies any illicit substance use complicating the clinical picture. She does report she is having a hard time thinking clearly. She does admit to racing thoughts, ruminations at this point in time. It is hard to focus or concentrate. She states that she is open to try medications knowing "anything to help" would be good at this point in time. She is feeling so poorly. MEDICATIONS: At time of presentation. 1. Insulin. 2. Trazodone 50 mg at bedtime. The patient states she did overdose on the trazodone. ALLERGIES: Influenza/immuno vaccine. PAST MEDICAL HISTORY: Type 1 diabetes. REVIEW OF SYSTEMS: Aside from endocrine, all other major organ systems are negative at this point in time for acute difficulties or complications. FAMILY PSYCHIATRIC AND CD HISTORY: The patient reports mother has a history of depression. PAST PSYCHIATRIC AND CD HISTORY: The patient denies any previous psychiatric hospitalizations or chemical dependency treatments. She is a nontobacco user. She has been drinking "a few drinks a day." For the past 5 years, there is some collateral information per staff report that the family has been concerned about patient's drinking for some time. The patient reports 2 suicide attempts by OD, the last 1 being 1 month ago. She denies any past psychiatric medication history aside from the trazodone, but collateral information from staff reveals the patient has been on temazepam, Zoloft, Effexor XR, Lyrica and Ativan in the past. PRIMARY MD: Dr. Suarez at [place]. SOCIAL HISTORY: The patient is born and raised in [place], [place]. She is a 3rd of 4 siblings and 2 sisters, 1 brother. The patient's parents have been for past 65 years. Father is a meneses. Mother is a nurse. The patient's highest level of education is that she has Bachelor's of Science from [employer]. She lives in [place] with her . Her is a tank six pack loader operator. She has been twice. 1st marriage was for 17 years. She has 3 children from this marriage. She has had a 2nd marriage now for 15 years. Denies any miscarriages or abortions. Denies any prior service or current legal difficulties. She was raised [employer]. She enjoys painting and gardening. MENTAL STATUS EXAM: The patient is a 51-year-old soft-spoken white female in no apparent distress. Speech is of increased latency of response, shortened duration of utterance. Psychomotor activity is within normal limits. There is no abnormal motor movements or tics observed. The patient is cognitively oriented. Mood is depressed. Affect is consistent with stated mood restrictive but cooperative overall for the purposes of the inpatient consult. There is no behavioral or stated evidence of acute suicidal or homicidal ideation or acute psychotic, delusional, or paranoid symptoms. Thought processes are significant for thought blocking as well as racing thoughts, ruminations, however there are no acute manic symptoms, loose associations evident. Judgment and insight do appear impaired at this point in time, but motivation for help appears good. VITALS: 134/84, 107, 70, and 99.5 degrees. IMPRESSION: [place] I. 1. Alcohol dependence, F10.20. 2. Bipolar affective disease, F31.67. 3. Rule out major depressive disorder. [place] II: None. [place] III. 1. Diabetes type 1. [place] IV: Severe. [place] V: 55. PLAN: 1. Discontinue trazodone. 2. Discontinue Effexor XR. The patient is currently been prescribed this medication. 3. Folic acid supplementation. 4. Thiamine supplementation. 5. Begin Prozac 20 mg q.a.m. for mood. 6. Begin Seroquel 50 mg at bedtime for clarity of thought and mood stability. 7. Begin Topamax 25 mg b.i.d. for mood stability, anxiety reduction and seizure prophylaxis. 8. Chemical dependency consult. 9. We will transfer to inpatient psych when medically stable for further treatment for her mood. 10.Sobriety. 11.AA rep to visit patient while the patient remains on unit. 12.Pastoral guidance. 13.We will continue to follow up with the patient on regular basis or on an as- needed basis while she remains on the inpatient medical unit. 14.We will follow up with the patient sooner if any complications in the interim. 15.Crisis plan is in place.. BECKIE /[id number]
[2017-01-21] MEDS: Saccharomyces Boulardii (Probiotic) 250 MG Cap PO SCH ×2 (12:58→21:37)
--- NOTE | 2017-01-21 14:13 | PCM.PN ---
- General Info Date of Service: 01/21/17 Functional Status: Reports: Tolerating Diet, Ambulating, Urinating - Review of Systems General: Reports: Weakness HEENT: Reports: No Symptoms Pulmonary: Reports: No Symptoms Cardiovascular: Reports: No Symptoms Gastrointestinal: Reports: No Symptoms Genitourinary: Reports: No Symptoms Musculoskeletal: Reports: No Symptoms Skin: Reports: No Symptoms Neurological: Reports: No Symptoms Psychiatric: Reports: No Symptoms - Patient Data Vitals - Most Recent: Last Vital Signs Temp 37.3 C 01/21/17 12:22 Pulse 92 01/21/17 12:22 Resp 19 01/21/17 12:22 BP 126/66 01/21/17 12:22 Pulse Ox 95 01/21/17 12:22 Weight - Most Recent: 81.238 kg I&O - Last 24 Hours: Intake & Output 01/20/17 01/21/17 01/21/17 22:59 06:59 14:59 Intake Total 1527 1052 Output Total 1500 900 Balance 27 152 Lab Results Last 24 Hours: Laboratory Results - last 24 hr 01/20/17 01/20/17 01/21/17 Range/Units 16:20 20:40 06:34 POC Glucose 276 H 269 H 280 H (70-105) mg/dL NT-Pro-B Natriuret Pep (0-125) pg/mL 01/21/17 01/21/17 Range/Units 06:55 11:39 POC Glucose 347 H (70-105) mg/dL NT-Pro-B Natriuret Pep 794 H (0-125) pg/mL Med Orders - Current: Current Medications Dextrose/Water (Dextrose 50% In Water) 50 ml IVPUSH ASDIRECTED PRN PRN Reason: Hypoglycemia Enoxaparin Sodium (Lovenox) 40 mg SUBCUT DAILY [facility] Last Admin: 01/21/17 08:13 Dose: 40 mg Fluoxetine HCl (Prozac) 20 mg PO DAILY [facility] Last Admin: 01/21/17 08:14 Dose: 20 mg Folic Acid (Folic Acid) 1 mg PO DAILY [facility] Last Admin: 01/21/17 08:14 Dose: 1 mg Haloperidol Lactate (Haldol) 0.5 mg IVPUSH Q6H PRN PRN Reason: restlessness Lactated Ringer's (Ringers, Lactated) 1,000 mls @ 50 mls/hr IV ASDIRECTED [facility] Last Admin: 01/20/17 21:35 Dose: 50 mls/hr Insulin Aspart (Novolog) 0 unit SUBCUT QIDACANDBED [facility] PRN Reason: Protocol Last Admin: 01/21/17 11:58 Dose: 12 units Insulin Detemir (Levemir) 10 unit SUBCUT BID [facility] Last Admin: 01/21/17 08:12 Dose: 10 units Levalbuterol HCl (Xopenex) 1.25 mg NEB QIDRT [facility] Last Admin: 01/21/17 09:35 Dose: 1.25 mg Lisinopril (Prinivil) 10 mg PO DAILY [facility] Last Admin: 01/21/17 08:13 Dose: 10 mg Lorazepam (Ativan) 0 mg IVPUSH ASDIRECTED PRN; Protocol PRN Reason: withdrawal Morphine Sulfate (Morphine) 2 mg IVPUSH Q2H PRN PRN Reason: pain, NVPS agitation Last Admin: 01/19/17 18:34 Dose: 2 mg Pantoprazole Sodium (Protonix) 40 mg PO BIDAC [facility] Last Admin: 01/21/17 06:32 Dose: 40 mg Potassium Chloride (Klor-Con M20) 40 meq PO BID [facility] Stop: 01/21/17 21:01 Last Admin: 01/21/17 08:14 Dose: 40 meq Quetiapine Fumarate (Seroquel) 50 mg PO BEDTIME [facility] Last Admin: 01/20/17 21:18 Dose: 50 mg Saccharomyces Boulardii (Florastor) 250 mg PO BID [facility] Last Admin: 01/21/17 12:58 Dose: 250 mg Sodium Chloride (Saline Flush) 10 ml FLUSH ASDIRECTED PRN PRN Reason: Keep Vein Open Last Admin: 01/14/17 19:53 Dose: 10 ml Temazepam (Restoril) 15 mg PO BEDTIME [facility] Last Admin: 01/20/17 21:18 Dose: 15 mg Thiamine HCl (Vitamin B-1) 100 mg PO DAILY [facility] Last Admin: 01/21/17 08:14 Dose: 100 mg Topiramate (Topamax) 25 mg PO BID [facility] Last Admin: 01/21/17 08:15 Dose: 25 mg Triamterene/HCTZ (Maxzide 50-75 Mg) 1 each PO DAILY [facility] Last Admin: 01/21/17 08:15 Dose: 1 each Discontinued Medications Albuterol/Ipratropium (Duoneb 3.0-0.5 Mg/3 Ml) 3 ml NEB Q4HRRT [facility] Last Admin: 01/14/17 09:58 Dose: 3 ml Albuterol/Ipratropium (Duoneb 3.0-0.5 Mg/3 Ml) Confirm Administered Dose 3 ml .ROUTE .STK-MED ONE Stop: 01/13/17 08:53 Last Admin: 01/13/17 09:03 Dose: Not Given Bisacodyl (Dulcolax) 10 mg RECTAL ONETIME ONE Stop: 01/17/17 10:01 Last Admin: 01/17/17 13:37 Dose: Not Given Bisacodyl (Dulcolax) 10 mg RECTAL ONETIME ONE Stop: 01/17/17 13:16 Last Admin: 01/17/17 13:35 Dose: 10 mg Clonidine HCl (Catapres) 0.1 mg PO Q4H PRN PRN Reason: Agitation Dextrose/Water (Dextrose 50% In Water) 50 ml IVPUSH ASDIRECTED PRN PRN Reason: hypoglycemia Diphenhydramine HCl (Benadryl) 50 mg IVPUSH ONETIME ONE Stop: 01/10/17 21:57 Last Admin: 01/10/17 22:28 Dose: 50 mg Famotidine (Pepcid) 20 mg IVPUSH ONETIME ONE Stop: 01/10/17 22:12 Last Admin: 01/10/17 22:28 Dose: 20 mg Famotidine (Pepcid) 20 mg PO DAILY [facility] Last Admin: 01/11/17 10:31 Dose: Not Given Folic Acid (Folic Acid) 1 mg PO DAILY [facility] Last Admin: 01/11/17 10:31 Dose: Not Given Furosemide (Lasix) 20 mg IVPUSH NOW ONE Stop: 01/13/17 10:43 Last Admin: 01/13/17 10:56 Dose: 20 mg Furosemide (Lasix) 40 mg IVPUSH NOW ONE Stop: 01/14/17 11:38 Last Admin: 01/14/17 11:51 Dose: 40 mg Furosemide (Lasix) 40 mg IVPUSH NOW ONE Stop: 01/15/17 09:17 Last Admin: 01/15/17 09:27 Dose: 40 mg Furosemide (Lasix) 40 mg IVPUSH BID [facility] Stop: 01/16/17 21:01 Last Admin: 01/16/17 21:54 Dose: 40 mg Furosemide (Lasix) 40 mg IVPUSH DAILY [facility] Last Admin: 01/20/17 09:18 Dose: 40 mg Hydralazine HCl (Apresoline) 20 mg PO Q6H PRN PRN Reason: Hypertension Hydralazine HCl (Apresoline) 10 mg IVPUSH Q2H PRN PRN Reason: Hypertension Last Admin: 01/18/17 20:34 Dose: 10 mg Sodium Chloride (Normal Saline) 1,000 mls @ 999 mls/hr IV ONETIME ONE Stop: 01/10/17 19:40 Last Admin: 01/10/17 18:52 Dose: 999 mls/hr Ceftriaxone Sodium 1 gm/ (Sodium Chloride) 100 mls @ 200 mls/hr IV ONETIME ONE Stop: 01/10/17 20:15 Last Admin: 01/10/17 19:59 Dose: 200 mls/hr Magnesium Sulfate 2 gm/ Premix 50 mls @ 25 mls/hr IV ONETIME ONE Stop: 01/10/17 21:46 Last Admin: 01/10/17 21:08 Dose: 25 mls/hr Sodium Chloride (Normal Saline) 1,000 mls @ 250 mls/hr IV ASDIRECTED [facility] Last Admin: 01/11/17 13:27 Dose: 250 mls/hr Sodium Chloride (Normal Saline) 1,000 mls @ 999 mls/hr IV ASDIRECTED [facility] Last Admin: 01/10/17 22:19 Dose: 999 mls/hr Sodium Chloride (Normal Saline) 1,000 mls @ 999 mls/hr IV ONETIME ONE Stop: 01/10/17 22:46 Last Admin: 01/10/17 22:18 Dose: 999 mls/hr Thiamine HCl 200 mg/ Sodium (Chloride) 102 mls @ 204 mls/hr IV ONETIME ONE Stop: 01/10/17 21:55 Last Admin: 01/10/17 22:39 Dose: 204 mls/hr Magnesium Sulfate 2 gm/ Premix 50 mls @ 25 mls/hr IV ONETIME ONE Stop: 01/11/17 00:13 Last Admin: 01/10/17 23:31 Dose: 25 mls/hr Levofloxacin/Dextrose 250 mg/ (Premix) 50 mls @ 50 mls/hr IV ONETIME ONE Stop: 01/10/17 23:15 Last Admin: 01/11/17 00:28 Dose: 50 mls/hr Dextrose/Sodium Chloride (Dextrose 5%-Normal Saline) 1,000 mls @ 150 mls/hr IV ASDIRECTED [facility] Last Admin: 01/12/17 07:24 Dose: 150 mls/hr Magnesium Sulfate/Dextrose 1 (gm/ Premix) 100 mls @ 100 mls/hr IV Q1H [facility] Stop: 01/12/17 10:59 Last Admin: 01/12/17 10:41 Dose: 100 mls/hr Ceftriaxone Sodium 1 gm/ (Sodium Chloride) 100 mls @ 200 mls/hr IV Q24H [facility] Last Admin: 01/17/17 14:59 Dose: 200 mls/hr Dextrose/Sodium Chloride (Dextrose 5%-1/2 Ns) 1,000 mls @ 125 mls/hr IV ASDIRECTED [facility] Last Admin: 01/13/17 06:45 Dose: 125 mls/hr Magnesium Sulfate/Dextrose 1 (gm/ Premix) 100 mls @ 100 mls/hr IV Q1H [facility] Stop: 01/13/17 10:59 Potassium Chloride 10 meq/ (Premix) 100 mls @ 100 mls/hr IV Q1H [facility] Stop: 01/13/17 14:59 Last Admin: 01/13/17 13:08 Dose: 100 mls/hr Magnesium Sulfate 2 gm/ Premix 50 mls @ 25 mls/hr IV ONETIME ONE Stop: 01/13/17 10:41 Last Admin: 01/13/17 08:46 Dose: 25 mls/hr Magnesium Sulfate (Magnesium Sulfate 2 Gm In Water 50 Ml) Confirm Administered Dose 50 mls @ as directed .ROUTE .STK-MED ONE Stop: 01/13/17 08:43 Last Admin: 01/13/17 08:59 Dose: Not Given Sodium Chloride (Normal Saline) 1,000 mls @ 125 mls/hr IV ASDIRECTED [facility] Last Admin: 01/13/17 14:37 Dose: 125 mls/hr Sodium Chloride (Normal Saline) 1,000 mls @ 200 mls/hr IV ASDIRECTED [facility] Last Infusion: 01/14/17 12:40 Dose: 100 mls/hr Potassium Chloride 10 meq/ (Premix) 100 mls @ 100 mls/hr IV Q1H [facility] Stop: 01/14/17 16:29 Last Admin: 01/14/17 16:17 Dose: 100 mls/hr Magnesium Sulfate 4 gm/ Premix 100 mls @ 25 mls/hr IV ONETIME [facility] Stop: 01/14/17 12:29 Last Admin: 01/14/17 08:48 Dose: 25 mls/hr Sodium Chloride (Normal Saline) 1,000 mls @ 100 mls/hr IV ASDIRECTED [facility] Last Admin: 01/15/17 16:00 Dose: 100 mls/hr Azithromycin 500 mg/ Sodium (Chloride) 250 mls @ 250 mls/hr IV Q24H [facility] Last Admin: 01/17/17 13:47 Dose: 250 mls/hr Magnesium Sulfate 2 gm/ Premix 50 mls @ 25 mls/hr IV ONETIME ONE Stop: 01/16/17 06:42 Last Admin: 01/16/17 05:18 Dose: 25 mls/hr Potassium Chloride 10 meq/ (Premix) 100 mls @ 100 mls/hr IV Q1H [facility] Stop: 01/16/17 10:59 Last Admin: 01/16/17 12:38 Dose: 100 mls/hr Dextrose/Water (Dextrose 5% In Water) 1,000 mls @ 75 mls/hr IV ASDIRECTED [facility] Last Admin: 01/16/17 22:00 Dose: 75 mls/hr Multivitamins/Minerals 10 ml/Amino Acids/Electrolytes/Dextrose 1,010 mls @ 40 mls/hr IV Q24H [facility] Magnesium Sulfate 2 gm/ Premix 50 mls @ 25 mls/hr IV ONETIME ONE Stop: 01/16/17 13:14 Last Admin: 01/16/17 11:58 Dose: 25 mls/hr Fat Emulsion Intravenous (Intralipid 20%) 500 mls @ 43 mls/hr IV [id number] [facility] Last Infusion: 01/18/17 19:13 Dose: 43 mls/hr Multivitamins/Minerals 10 ml/Amino Acids/Electrolytes/Dextrose 1,010 mls @ 40 mls/hr IV ONETIME ONE Stop: 01/17/17 16:14 Last Admin: 01/16/17 15:21 Dose: 40 mls/hr Potassium Chloride 10 meq/ (Premix) 100 mls @ 100 mls/hr IV Q1H [facility] Stop: 01/17/17 03:29 Last Admin: 01/17/17 02:46 Dose: 100 mls/hr Magnesium Sulfate (Magnesium Sulfate 2 Gm In Water 50 Ml) 50 mls @ 25 mls/hr IV Q2H [facility] Stop: 01/17/17 01:29 Last Admin: 01/16/17 23:37 Dose: 25 mls/hr Magnesium Sulfate 2 gm/ Premix 50 mls @ 25 mls/hr IV ONETIME ONE Stop: 01/17/17 11:40 Last Admin: 01/17/17 13:38 Dose: Not Given Magnesium Sulfate 2 gm/ Premix 50 mls @ 25 mls/hr IV ONETIME ONE Stop: 01/17/17 12:14 Last Admin: 01/17/17 12:08 Dose: 25 mls/hr Magnesium Sulfate 2 gm/ Premix 50 mls @ 25 mls/hr IV ONETIME ONE Stop: 01/17/17 19:59 Last Admin: 01/17/17 19:14 Dose: 25 mls/hr Potassium Chloride 10 meq/ (Premix) 100 mls @ 100 mls/hr IV Q1H [facility] Stop: 01/17/17 15:59 Last Admin: 01/17/17 16:19 Dose: 100 mls/hr Multivitamins/Minerals 10 ml/Amino Acids/Electrolytes/Dextrose 1,010 mls @ 55 mls/hr IV ONETIME ONE Stop: 01/18/17 09:21 Last Admin: 01/17/17 16:22 Dose: 55 mls/hr Potassium Chloride 10 meq/ (Premix) 100 mls @ 100 mls/hr IV Q1H [facility] Stop: 01/17/17 17:14 Last Admin: 01/17/17 16:23 Dose: Not Given Multivitamins/Minerals 10 ml/Amino Acids/Electrolytes/Dextrose 1,010 mls @ 70 mls/hr IV DAILY@1000 [facility] Last Admin: 01/19/17 20:00 Dose: Not Given Amino Acids/Electrolytes/Dextrose (Clinimix E 4.25/25) 1,000 mls @ 70 mls/hr IV DAILY@2300 [facility] Last Admin: 01/18/17 23:07 Dose: 70 mls/hr Magnesium Sulfate 4 gm/ Premix 100 mls @ 50 mls/hr IV ONETIME ONE Stop: 01/18/17 11:44 Last Admin: 01/18/17 10:26 Dose: 50 mls/hr Potassium Chloride 80 meq/ (Lactated Ringer's) 1,040 mls @ 130 mls/hr IV ONETIME ONE Stop: 01/18/17 20:29 Last Admin: 01/18/17 12:04 Dose: 130 mls/hr Insulin Aspart (Novolog) 0 unit SUBCUT Q6HR [facility] PRN Reason: Protocol Last Admin: 01/11/17 12:06 Dose: Not Given Insulin Aspart (Novolog) 0 unit SUBCUT QIDACANDBED [facility] PRN Reason: Protocol Last Admin: 01/12/17 16:56 Dose: 4 units Insulin Aspart (Novolog) 0 unit SUBCUT Q6HR [facility] PRN Reason: Protocol Last Admin: 01/13/17 00:05 Dose: Not Given Insulin Aspart (Novolog) 0 unit SUBCUT Q6H [facility] PRN Reason: Protocol Last Admin: 01/15/17 04:35 Dose: 3 units Insulin Aspart (Novolog) 0 unit SUBCUT Q6H [facility] PRN Reason: Protocol Last Admin: 01/19/17 18:24 Dose: 9 units Insulin Detemir (Levemir) 10 unit SUBCUT BEDTIME [facility] Last Admin: 01/12/17 21:28 Dose: 10 units Levalbuterol HCl (Xopenex) 1.25 mg NEB Q4HRRT [facility] Last Admin: 01/17/17 05:25 Dose: 1.25 mg Levalbuterol HCl (Xopenex) Confirm Administered Dose 1.25 mg .ROUTE .STK-MED ONE Stop: 01/16/17 18:02 Last Admin: 01/16/17 19:55 Dose: Not Given Levalbuterol HCl (Xopenex) 1.25 mg NEB QID [facility] Last Admin: 01/17/17 20:49 Dose: 1.25 mg Lorazepam (Ativan) 1 - 3 mg IVPUSH Q4H PRN; Protocol PRN Reason: withdrawal Last Admin: 01/11/17 21:44 Dose: 1 mg Lorazepam (Ativan) 2 mg IVPUSH Q4H PRN PRN Reason: Seizures Last Admin: 01/13/17 13:55 Dose: 2 mg Lorazepam (Ativan) 1 - 3 mg IVPUSH ASDIRECTED PRN; Protocol PRN Reason: withdrawal Last Admin: 01/15/17 02:45 Dose: 2 mg Lorazepam (Ativan) 4 mg IVPUSH Q6H [facility] Last Admin: 01/15/17 05:06 Dose: 4 mg Lorazepam (Ativan) 4 mg IVPUSH Q2H PRN PRN Reason: severe agitation/withdrawl Last Admin: 01/14/17 01:42 Dose: 4 mg Magnesium Sulfate (Pharmacy To Dose - Magnesium Replacement) 1 dose .XX ASDIRECTED [facility] Metoprolol Tartrate (Lopressor) 5 mg IVPUSH Q4H PRN PRN Reason: Tachycardia Last Admin: 01/15/17 21:35 Dose: 5 mg Metoprolol Tartrate (Lopressor) 5 mg IVPUSH Q6H [facility] Last Admin: 01/20/17 12:02 Dose: 5 mg Pantoprazole Sodium (Protonix Iv) 40 mg IVPUSH DAILY [facility] Last Admin: 01/20/17 09:18 Dose: 40 mg Potassium Chloride (Pharmacy To Dose - Potassium Replacement) 1 dose .XX ASDIRECTED [facility] Quetiapine Fumarate (Seroquel) 50 mg PO BEDTIME [facility] Last Admin: 01/20/17 10:53 Dose: Not Given Sodium Chloride (Saline Flush) 10 ml FLUSH ASDIRECTED PRN PRN Reason: Keep Vein Open Last Admin: 01/12/17 22:52 Dose: 10 ml Topiramate (Topamax) 25 mg PO BID [facility] Last Admin: 01/11/17 12:19 Dose: Not Given Trazodone HCl (Trazodone) 50 mg PO BEDTIME PRN PRN Reason: Sleep Last Admin: 01/19/17 20:41 Dose: 50 mg - Exam Quality Assessment: Central Line/PICC, DVT Prophylaxis General: Alert, Oriented, Cooperative, No Acute Distress HEENT: Pupils Equal, Pupils Reactive, EOMI Neck: Supple, Trachea Midline Lungs: Normal Respiratory Effort Cardiovascular: Regular Rate, Regular Rhythm GI/Abdominal Exam: Normal Bowel Sounds, Soft, Non-Tender, No Organomegaly, No Distention (Female) Exam: Deferred Back Exam: Normal Inspection Extremities: Normal Inspection, Normal Range of Motion Skin: Warm Neurological: No New Focal Deficit, Normal Speech Psy/Mental Status: Alert - Problem List & Annotations (1) Encephalopathy acute SNOMED Code(s): 9218245 Code(s): G93.40 - ENCEPHALOPATHY, UNSPECIFIED Status: Acute Current Visit : Yes (2) Personality disorder in adult SNOMED Code(s): 11948839 Code(s): F60.9 - PERSONALITY DISORDER, UNSPECIFIED Status: Acute Current Visit: Yes (3) Suicide attempt by multiple drug overdose SNOMED Code(s): 38372954 Code(s): T50.902A - POISONING BY UNSP DRUG/MEDS/BIOL SUBST, SELF-HARM, INIT Status: Acute Current Visit: Yes - Problem List Review Problem List Initiated/Reviewed/Updated: Yes - My Orders Last 24 Hours: My Active Orders 01/20/17 17:45 Lisinopril [Prinivil] 10 mg PO DAILY 01/20/17 21:00 QUEtiapine [SEROquel] 50 mg PO BEDTIME 01/21/17 09:00 HCTZ/Triamterene [Maxzide 50-75 MG] 1 each PO DAILY 01/21/17 12:43 C DIFFICILE BY PCR W/NAP1 [MOLEC] Routine 01/21/17 12:45 Saccharomyces Boulardii [Florastor] 250 mg PO BID 01/22/17 05:00 PRO B-TYPE NATRIUR PEPT,BNPPRO [CHEM] DAILY 01/23/17 05:00 PRO B-TYPE NATRIUR PEPT,BNPPRO [CHEM] DAILY 01/24/17 05:00 PRO B-TYPE NATRIUR PEPT,BNPPRO [CHEM] DAILY - Assessment Assessment:: 1. S/P suicidal attempts with prescription drug overdose; history of ETOH abuse /dependence. 2. S/P acute withdrawal syndrome of multiple medications. 3. Altered mental status due--->Metabolic Encephalopathy,resolved. 4. Urinary tract infection due to Escherichia coli-->completed ATB therapy. 5. Rhabdomyolysis, resolving; current CPK--.<500; resolved. 6. Pneumonia versus atelectasis versus pulmonary vascular congestion; diuresed-- ->resolved. 7. Electrolytes abnormalities: start oral replacement. 8. 2D echo structurally normal heart, grade I diastolic dysfunction, LVEF WNL. 9. Elevated BS, modest increase in insulin yesterday. 10. Diarrhea with stool studies, pending. - Plan Plan:: 1. Continue LR at 50 cc/hr; start full liquids; complete current TPN, dc today. 2. IV Lasix 40 mg twice daily, adjust as needed. 3. Bronchodilator therapy with Xopenex every 4 hours as needed. Respiratory therapy evaluation and treatment. 4. DC PICC 6. Clarify home meds. 7. Start meds suggested by psychiatry. 8. DVT prophylaxis with MJ hose/Lovenox. 10. Social service evaluation for discharge planning; change of plan to psych/ substance abuse; no longer needs SNF. LOS>96 hours, additional assessment by page/SA pending; meds were added by Dr Gallardo; will be committed at [place].
[2017-01-21] MEDS ORDERED: Budesonide/Formoterol 80-4.5 MCG/Puff 6.9 GM Inhaler INH SCH (21:00)
[2017-01-21] MEDS: Temazepam 15 MG Cap PO SCH (21:36)
[2017-01-21] MEDS: QUEtiapine 25 MG Tab PO SCH (21:37)
[2017-01-21] MEDS ORDERED: Formoterol/Mometasone 100-5 MCG 8.8 GM Inhaler IH ONE (22:00)
[2017-01-21] MEDS: Lactated Ringers 1,000 ML IV SCH (22:22)
--- NOTE | 2017-01-21 23:37 | CONS ---
CONSULTING PHYSICIAN: Mason Mckeon LAC DATE OF CONSULTATION: 01/21/2017 TIME: 10:07 p.m. The patient is a 51-year-old female, who was admitted to [facility] ICU on 01/10/2017. An alcohol and drug consultation were requested by her medical treatment team. SOURCE OF INFORMATION: Hospital records, patient's self report, and LANDON were signed to include the patient's in the evaluation, background research, and prescription drug monitoring report. HISTORY OF PRESENT ILLNESS: The patient is a 51-year-old female, admitted to [facility] ICU on 01/10/2017 with an overdose of pills secondary to dual diagnosis. To date, the patient has been hospitalized for 11 days in a life-threatening condition. The patient was brought to [facility] ED via [facility] after the patient's daughter alerted emergency responders that she could not get a hold of her mother. Emergency room reports indicate that the patient's son received a text from the patient on 01/10/2017 with a picture of a bowl of pills and a text stating "please come, I have no one." The family reports to ED physician that they felt the patient intentionally overdosed and that she has a history of depression with suicidal intent. The family goes on to report that the patient drinks vodka daily and has not been sober in over 5 to 6 years. The patient presented to ED with an altered mental state, rhabdomyolysis, anemia, thrombocytopenia, metabolic acidosis with normal anion gap and failure of bicarbonate regeneration secondary to overdose poisoned by unspecified drugs, medications, and/or biological substances undetermined. Complicating her medical condition is type 1 diabetes and post gastric bypass surgery. SOCIAL HISTORY: The patient reports that she was born and raised in [facility] and she is the third of 4 siblings. She has 2 sisters and 1 brother. The patient's parents have been for the past 65 years. Her father is a meneses and her mother is a nurse. The patient reports that she graduated with a Bachelor of Science from [employer] in developmental disability. She reports that she was at age 17 and had 3 children from that marriage. She was again in 2001 and they are still . 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 The patient has been unemployed for some time. She enjoys cooking and gardening and would like to be a caterer. She currently lives with her in [place], [place]. PSYCHIATRIC HISTORY: The patient denies any previous psychiatric hospitalizations; however, she reports 2 suicide attempts by overdose, the last one being 1 month ago. The prescription drug monitoring report was pulled and it indicates the patient has been prescribed lorazepam and temazepam in this past year. She reports to Dr. Gallardo that she has been struggling with depression for at least the past 6 months as well as mood swings. She has reported that she is increasingly isolating and has a lack of appetite, a lack of energy, and a lack of interest. She states that she is having more crying episodes and she will sleep up to 12 hours a day. She is reporting to Dr. Gallardo as well that she has racing thoughts and ruminations and she states this is a lot of the reason that she is drinking so heavily is to "help me sleep." SUBSTANCE ABUSE HISTORY: The patient denies any past chemical dependency treatment. Her response to substance abuse questioning is minimal and answers with equivocation. She reports no illicit or licit drug use or tobacco use. With regard to alcohol, the patient reports that she has had gastric bypass surgery when she was 28 years old and started drinking when she was 29. While in her 29, she states she and her would go out on Saturday night and she would typically drink 3 to 4 fruity drinks. In her early 39, she reports drinking on weekends, typically 5 to 6 [employer] or vodka grapefruit juice. In her late 39, she states she would drink maybe 3 times a week during the summer and less during the winter typically 4 to 5 drinks per occasion, drinking something sweet with an umbrella. She states she has been drunk probably 4 times in the past 5 years. In the last year, the patient reports that she is typically drinking 3 times a week during the summer and less in the winter, typically drinking 4 to 5 fruity drinks. When her was asked if her drinking was causing a problem in their marriage, he replied yes. At that point, the patient pointed out that he is drinking as well and he conceded that he is drinking as much as she is. The patient is denying drinking in combination with the pills when she overdosed; however, emergency room doctor's report that she smelled of an alcohol odor. Her MELANI was 0.00, however her medical condition upon arrival, indicates that alcohol could have been used and metabolized before admission. Accompanying the patient in ED was her daughter who reported that her mother has drank for a long time and that she is afraid that she will drink herself to . The patient's daughter also reports that the family has been trying to get the patient to go to substance abuse treatment; however, the patient becomes very angry with them when they talk about her alcohol use. Doctor reports indicate that the patient experienced severe withdrawals and displayed a high tolerance for Ativan. Dr. Gallardo has also visited with the patient and gave her an alcohol dependence diagnosis. The patient continues to drink exacerbating her diabetes type 1 and gastric bypass. The patient meets DSM-5 criteria for the following diagnosis. F10.20 alcohol use disorder, severe. F10.239 alcohol withdrawal without perceptual disturbance. ASAM DIMENSIONS: Dimension 1: Score 4. The patient presented incapacitated with severe signs and symptoms of intoxication and withdrawal. The patient presented as a danger to self or others. Dimension 2: Score 1. The patient is presenting with a type 1 diabetes and gastric bypass; however, she tolerates and jayson with physical discomfort and is able to get the services she needs. Dimension 3: Score 2+. The patient appears to have difficulty with impulse control and lacks coping skills. She attempted suicide twice in the past month, seems to have difficulty functioning in significant life areas, and has symptoms of emotional problems; however, she is able to participate in most treatment activities. Dimension 4: Score 4. The patient appears noncompliant with treatment, has no awareness of her addiction or mental health disorder and does not want or is unwilling to explore change or is in total denial of the illness and its implications. Dimension 5: Score 3+. The patient has little recognition in understanding of relapse and recidivism issues, displays a high vulnerability for further substance use or mental health problems. Dimension 6: Score 3. The patient is not engaged in structured meaningful activity and her drinks as well. Her family has pulled back their support for her. ASSESSMENT SUMMARY: The patient appears to be a nice woman who is very guarded about her substance use. Equivocated generalized and minimized her use. She is verbalizing and demonstrating very little insight into the seriousness of her medical condition, her mental health, her substance use, and the negative affects her behaviors are having on her family as well as her own self destruction. She continues to drink despite having diabetes type 1 and gastric bypass not to mention the amount that she is drinking far surpasses an acceptable amount for a gastric bypass patient. The patient is presenting with serious dual diagnosis and is meeting ASAM criteria for a level 3.7, medically monitored inpatient treatment. Her family has reported to hospital staff that they are seeking professional intervention as there is real concern for the patient's continued well being. The patient is meeting ASAM imminent danger criteria and the [facility] machine former was consulted concerning a petition for involuntary commitment which was exercised on 01/21/2017. Dr. Moser and Susu Jiménez RN the patient's machine adjuster leader case trim were consulted and it was agreed that a long-term facility would be appropriate to address this patient's dual diagnosis. Susu Jiménez RN will contact facilities tomorrow, 01/22/2017 to secure a safe discharge plan. RECOMMENDATION: Level 3.7 medically managed inpatient treatment at any admitting facility a petition for involuntary commitment was executed on 01/21/2017. BECKIE /[id number]
[2017-01-22] MEDS: Formoterol/Mometasone 100-5 MCG 8.8 GM Inhaler IH SCH ×2 (06:21→20:58)
[2017-01-22] MEDS: Levalbuterol HCl 1.25 MG/3 ML Neb NEB SCH ×4 (06:22→20:58)
[2017-01-22] MEDS: Insulin Aspart 100 Units/ML 3 ML Pen SUBCUT SCH ×4 (06:59→22:31)
[2017-01-22] MEDS: Pantoprazole 40 MG Tab.CR PO SCH ×2 (06:59→16:53)
[2017-01-22] MEDS: Insulin Detemir 100 Units/ML 3 ML Pen SUBCUT SCH ×2 (09:55→20:18)
[2017-01-22] MEDS: Enoxaparin 40 MG/0.4 ML Syringe SUBCUT SCH (09:56)
[2017-01-22] MEDS: Thiamine 100 MG Tab PO SCH (09:56)
[2017-01-22] MEDS: Topiramate 25 MG Tab PO SCH ×2 (09:56→20:18)
[2017-01-22] MEDS: Lisinopril 10 MG Tab PO SCH (09:56)
[2017-01-22] MEDS: Hydrochlorothiazide/Triamterene 50-75 MG Tab PO SCH (09:57)
[2017-01-22] MEDS: Folic Acid 1 MG Tab PO SCH (09:57)
[2017-01-22] MEDS: FLUoxetine 20 MG Cap PO SCH (09:57)
--- NOTE | 2017-01-22 11:59 | PCM.PN ---
- General Info Date of Service: 01/22/17 Functional Status: Reports: Tolerating Diet, Ambulating (with walker), Urinating - Review of Systems General: Reports: Weakness HEENT: Reports: No Symptoms Pulmonary: Reports: No Symptoms Cardiovascular: Reports: No Symptoms Gastrointestinal: Reports: No Symptoms Genitourinary: Reports: No Symptoms Musculoskeletal: Reports: No Symptoms Skin: Reports: No Symptoms Neurological: Reports: No Symptoms Psychiatric: Reports: No Symptoms - Patient Data Vitals - Most Recent: Last Vital Signs Temp 37.1 C 01/22/17 07:25 Pulse 87 01/22/17 07:25 Resp 19 01/22/17 07:25 BP 112/67 01/22/17 09:56 Pulse Ox 99 01/22/17 10:15 Weight - Most Recent: 78.562 kg I&O - Last 24 Hours: Intake & Output 01/21/17 01/22/17 01/22/17 22:59 06:59 14:59 Intake Total 770 650 60 Output Total 950 1400 Balance -180 -750 60 Lab Results Last 24 Hours: Laboratory Results - last 24 hr 01/21/17 01/21/17 01/22/17 Range/Units 16:07 20:28 05:55 POC Glucose 200 H 287 H (70-105) mg/dL NT-Pro-B Natriuret Pep 451 H (0-125) pg/mL 01/22/17 Range/Units 06:30 POC Glucose 156 H (70-105) mg/dL NT-Pro-B Natriuret Pep (0-125) pg/mL Med Orders - Current: Current Medications Dextrose/Water (Dextrose 50% In Water) 50 ml IVPUSH ASDIRECTED PRN PRN Reason: Hypoglycemia Enoxaparin Sodium (Lovenox) 40 mg SUBCUT DAILY [facility] Last Admin: 01/22/17 09:56 Dose: 40 mg Fluoxetine HCl (Prozac) 20 mg PO DAILY [facility] Last Admin: 01/22/17 09:57 Dose: 20 mg Folic Acid (Folic Acid) 1 mg PO DAILY [facility] Last Admin: 01/22/17 09:57 Dose: 1 mg Haloperidol Lactate (Haldol) 0.5 mg IVPUSH Q6H PRN PRN Reason: restlessness Lactated Ringer's (Ringers, Lactated) 1,000 mls @ 50 mls/hr IV ASDIRECTED [facility] Last Admin: 01/21/17 22:22 Dose: 50 mls/hr Insulin Aspart (Novolog) 0 unit SUBCUT QIDACANDBED [facility] PRN Reason: Protocol Last Admin: 01/22/17 06:59 Dose: 2 units Insulin Detemir (Levemir) 10 unit SUBCUT BID [facility] Last Admin: 01/22/17 09:55 Dose: 10 units Levalbuterol HCl (Xopenex) 1.25 mg NEB QIDRT [facility] Last Admin: 01/22/17 10:12 Dose: 1.25 mg Lisinopril (Prinivil) 10 mg PO DAILY [facility] Last Admin: 01/22/17 09:56 Dose: 10 mg Lorazepam (Ativan) 0 mg IVPUSH ASDIRECTED PRN; Protocol PRN Reason: withdrawal Mometasone Furoate/Formoterol Fumar (Dulera 100-5 Mcg) 2 puff IH BIDRT [facility] Last Admin: 01/22/17 06:21 Dose: 2 puff Morphine Sulfate (Morphine) 2 mg IVPUSH Q2H PRN PRN Reason: pain, NVPS agitation Last Admin: 01/19/17 18:34 Dose: 2 mg Pantoprazole Sodium (Protonix) 40 mg PO BIDAC [facility] Last Admin: 01/22/17 06:59 Dose: 40 mg Quetiapine Fumarate (Seroquel) 50 mg PO BEDTIME [facility] Last Admin: 01/21/17 21:37 Dose: 50 mg Saccharomyces Boulardii (Florastor) 250 mg PO BID [facility] Last Admin: 01/21/17 21:37 Dose: 250 mg Sodium Chloride (Saline Flush) 10 ml FLUSH ASDIRECTED PRN PRN Reason: Keep Vein Open Last Admin: 01/14/17 19:53 Dose: 10 ml Temazepam (Restoril) 15 mg PO BEDTIME [facility] Last Admin: 01/21/17 21:36 Dose: 15 mg Thiamine HCl (Vitamin B-1) 100 mg PO DAILY [facility] Last Admin: 01/22/17 09:56 Dose: 100 mg Topiramate (Topamax) 25 mg PO BID [facility] Last Admin: 01/22/17 09:56 Dose: 25 mg Triamterene/HCTZ (Maxzide 50-75 Mg) 1 each PO DAILY [facility] Last Admin: 01/22/17 09:57 Dose: 1 each Discontinued Medications Albuterol/Ipratropium (Duoneb 3.0-0.5 Mg/3 Ml) 3 ml NEB Q4HRRT [facility] Last Admin: 01/14/17 09:58 Dose: 3 ml Albuterol/Ipratropium (Duoneb 3.0-0.5 Mg/3 Ml) Confirm Administered Dose 3 ml .ROUTE .STK-MED ONE Stop: 01/13/17 08:53 Last Admin: 01/13/17 09:03 Dose: Not Given Bisacodyl (Dulcolax) 10 mg RECTAL ONETIME ONE Stop: 01/17/17 10:01 Last Admin: 01/17/17 13:37 Dose: Not Given Bisacodyl (Dulcolax) 10 mg RECTAL ONETIME ONE Stop: 01/17/17 13:16 Last Admin: 01/17/17 13:35 Dose: 10 mg Budesonide/Formoterol Fumarate (Symbicort 80-4.5 Mcg) 0 gm INH BID [facility] Clonidine HCl (Catapres) 0.1 mg PO Q4H PRN PRN Reason: Agitation Dextrose/Water (Dextrose 50% In Water) 50 ml IVPUSH ASDIRECTED PRN PRN Reason: hypoglycemia Diphenhydramine HCl (Benadryl) 50 mg IVPUSH ONETIME ONE Stop: 01/10/17 21:57 Last Admin: 01/10/17 22:28 Dose: 50 mg Famotidine (Pepcid) 20 mg IVPUSH ONETIME ONE Stop: 01/10/17 22:12 Last Admin: 01/10/17 22:28 Dose: 20 mg Famotidine (Pepcid) 20 mg PO DAILY [facility] Last Admin: 01/11/17 10:31 Dose: Not Given Folic Acid (Folic Acid) 1 mg PO DAILY [facility] Last Admin: 01/11/17 10:31 Dose: Not Given Furosemide (Lasix) 20 mg IVPUSH NOW ONE Stop: 01/13/17 10:43 Last Admin: 01/13/17 10:56 Dose: 20 mg Furosemide (Lasix) 40 mg IVPUSH NOW ONE Stop: 01/14/17 11:38 Last Admin: 01/14/17 11:51 Dose: 40 mg Furosemide (Lasix) 40 mg IVPUSH NOW ONE Stop: 01/15/17 09:17 Last Admin: 01/15/17 09:27 Dose: 40 mg Furosemide (Lasix) 40 mg IVPUSH BID [facility] Stop: 01/16/17 21:01 Last Admin: 01/16/17 21:54 Dose: 40 mg Furosemide (Lasix) 40 mg IVPUSH DAILY [facility] Last Admin: 01/20/17 09:18 Dose: 40 mg Hydralazine HCl (Apresoline) 20 mg PO Q6H PRN PRN Reason: Hypertension Hydralazine HCl (Apresoline) 10 mg IVPUSH Q2H PRN PRN Reason: Hypertension Last Admin: 01/18/17 20:34 Dose: 10 mg Sodium Chloride (Normal Saline) 1,000 mls @ 999 mls/hr IV ONETIME ONE Stop: 01/10/17 19:40 Last Admin: 01/10/17 18:52 Dose: 999 mls/hr Ceftriaxone Sodium 1 gm/ (Sodium Chloride) 100 mls @ 200 mls/hr IV ONETIME ONE Stop: 01/10/17 20:15 Last Admin: 01/10/17 19:59 Dose: 200 mls/hr Magnesium Sulfate 2 gm/ Premix 50 mls @ 25 mls/hr IV ONETIME ONE Stop: 01/10/17 21:46 Last Admin: 01/10/17 21:08 Dose: 25 mls/hr Sodium Chloride (Normal Saline) 1,000 mls @ 250 mls/hr IV ASDIRECTED [facility] Last Admin: 01/11/17 13:27 Dose: 250 mls/hr Sodium Chloride (Normal Saline) 1,000 mls @ 999 mls/hr IV ASDIRECTED [facility] Last Admin: 01/10/17 22:19 Dose: 999 mls/hr Sodium Chloride (Normal Saline) 1,000 mls @ 999 mls/hr IV ONETIME ONE Stop: 01/10/17 22:46 Last Admin: 01/10/17 22:18 Dose: 999 mls/hr Thiamine HCl 200 mg/ Sodium (Chloride) 102 mls @ 204 mls/hr IV ONETIME ONE Stop: 01/10/17 21:55 Last Admin: 01/10/17 22:39 Dose: 204 mls/hr Magnesium Sulfate 2 gm/ Premix 50 mls @ 25 mls/hr IV ONETIME ONE Stop: 01/11/17 00:13 Last Admin: 01/10/17 23:31 Dose: 25 mls/hr Levofloxacin/Dextrose 250 mg/ (Premix) 50 mls @ 50 mls/hr IV ONETIME ONE Stop: 01/10/17 23:15 Last Admin: 01/11/17 00:28 Dose: 50 mls/hr Dextrose/Sodium Chloride (Dextrose 5%-Normal Saline) 1,000 mls @ 150 mls/hr IV ASDIRECTED [facility] Last Admin: 01/12/17 07:24 Dose: 150 mls/hr Magnesium Sulfate/Dextrose 1 (gm/ Premix) 100 mls @ 100 mls/hr IV Q1H [facility] Stop: 01/12/17 10:59 Last Admin: 01/12/17 10:41 Dose: 100 mls/hr Ceftriaxone Sodium 1 gm/ (Sodium Chloride) 100 mls @ 200 mls/hr IV Q24H [facility] Last Admin: 01/17/17 14:59 Dose: 200 mls/hr Dextrose/Sodium Chloride (Dextrose 5%-1/2 Ns) 1,000 mls @ 125 mls/hr IV ASDIRECTED [facility] Last Admin: 01/13/17 06:45 Dose: 125 mls/hr Magnesium Sulfate/Dextrose 1 (gm/ Premix) 100 mls @ 100 mls/hr IV Q1H [facility] Stop: 01/13/17 10:59 Potassium Chloride 10 meq/ (Premix) 100 mls @ 100 mls/hr IV Q1H [facility] Stop: 01/13/17 14:59 Last Admin: 01/13/17 13:08 Dose: 100 mls/hr Magnesium Sulfate 2 gm/ Premix 50 mls @ 25 mls/hr IV ONETIME ONE Stop: 01/13/17 10:41 Last Admin: 01/13/17 08:46 Dose: 25 mls/hr Magnesium Sulfate (Magnesium Sulfate 2 Gm In Water 50 Ml) Confirm Administered Dose 50 mls @ as directed .ROUTE .STK-MED ONE Stop: 01/13/17 08:43 Last Admin: 01/13/17 08:59 Dose: Not Given Sodium Chloride (Normal Saline) 1,000 mls @ 125 mls/hr IV ASDIRECTED [facility] Last Admin: 01/13/17 14:37 Dose: 125 mls/hr Sodium Chloride (Normal Saline) 1,000 mls @ 200 mls/hr IV ASDIRECTED [facility] Last Infusion: 01/14/17 12:40 Dose: 100 mls/hr Potassium Chloride 10 meq/ (Premix) 100 mls @ 100 mls/hr IV Q1H [facility] Stop: 01/14/17 16:29 Last Admin: 01/14/17 16:17 Dose: 100 mls/hr Magnesium Sulfate 4 gm/ Premix 100 mls @ 25 mls/hr IV ONETIME [facility] Stop: 01/14/17 12:29 Last Admin: 01/14/17 08:48 Dose: 25 mls/hr Sodium Chloride (Normal Saline) 1,000 mls @ 100 mls/hr IV ASDIRECTED [facility] Last Admin: 01/15/17 16:00 Dose: 100 mls/hr Azithromycin 500 mg/ Sodium (Chloride) 250 mls @ 250 mls/hr IV Q24H [facility] Last Admin: 01/17/17 13:47 Dose: 250 mls/hr Magnesium Sulfate 2 gm/ Premix 50 mls @ 25 mls/hr IV ONETIME ONE Stop: 01/16/17 06:42 Last Admin: 01/16/17 05:18 Dose: 25 mls/hr Potassium Chloride 10 meq/ (Premix) 100 mls @ 100 mls/hr IV Q1H [facility] Stop: 01/16/17 10:59 Last Admin: 01/16/17 12:38 Dose: 100 mls/hr Dextrose/Water (Dextrose 5% In Water) 1,000 mls @ 75 mls/hr IV ASDIRECTED [facility] Last Admin: 01/16/17 22:00 Dose: 75 mls/hr Multivitamins/Minerals 10 ml/Amino Acids/Electrolytes/Dextrose 1,010 mls @ 40 mls/hr IV Q24H [facility] Magnesium Sulfate 2 gm/ Premix 50 mls @ 25 mls/hr IV ONETIME ONE Stop: 01/16/17 13:14 Last Admin: 01/16/17 11:58 Dose: 25 mls/hr Fat Emulsion Intravenous (Intralipid 20%) 500 mls @ 43 mls/hr IV [id number] [facility] Last Infusion: 01/18/17 19:13 Dose: 43 mls/hr Multivitamins/Minerals 10 ml/Amino Acids/Electrolytes/Dextrose 1,010 mls @ 40 mls/hr IV ONETIME ONE Stop: 01/17/17 16:14 Last Admin: 01/16/17 15:21 Dose: 40 mls/hr Potassium Chloride 10 meq/ (Premix) 100 mls @ 100 mls/hr IV Q1H [facility] Stop: 01/17/17 03:29 Last Admin: 01/17/17 02:46 Dose: 100 mls/hr Magnesium Sulfate (Magnesium Sulfate 2 Gm In Water 50 Ml) 50 mls @ 25 mls/hr IV Q2H [facility] Stop: 01/17/17 01:29 Last Admin: 01/16/17 23:37 Dose: 25 mls/hr Magnesium Sulfate 2 gm/ Premix 50 mls @ 25 mls/hr IV ONETIME ONE Stop: 01/17/17 11:40 Last Admin: 01/17/17 13:38 Dose: Not Given Magnesium Sulfate 2 gm/ Premix 50 mls @ 25 mls/hr IV ONETIME ONE Stop: 01/17/17 12:14 Last Admin: 01/17/17 12:08 Dose: 25 mls/hr Magnesium Sulfate 2 gm/ Premix 50 mls @ 25 mls/hr IV ONETIME ONE Stop: 01/17/17 19:59 Last Admin: 01/17/17 19:14 Dose: 25 mls/hr Potassium Chloride 10 meq/ (Premix) 100 mls @ 100 mls/hr IV Q1H [facility] Stop: 01/17/17 15:59 Last Admin: 01/17/17 16:19 Dose: 100 mls/hr Multivitamins/Minerals 10 ml/Amino Acids/Electrolytes/Dextrose 1,010 mls @ 55 mls/hr IV ONETIME ONE Stop: 01/18/17 09:21 Last Admin: 01/17/17 16:22 Dose: 55 mls/hr Potassium Chloride 10 meq/ (Premix) 100 mls @ 100 mls/hr IV Q1H [facility] Stop: 01/17/17 17:14 Last Admin: 01/17/17 16:23 Dose: Not Given Multivitamins/Minerals 10 ml/Amino Acids/Electrolytes/Dextrose 1,010 mls @ 70 mls/hr IV DAILY@1000 [facility] Last Admin: 01/19/17 20:00 Dose: Not Given Amino Acids/Electrolytes/Dextrose (Clinimix E 4.25/25) 1,000 mls @ 70 mls/hr IV DAILY@2300 [facility] Last Admin: 01/18/17 23:07 Dose: 70 mls/hr Magnesium Sulfate 4 gm/ Premix 100 mls @ 50 mls/hr IV ONETIME ONE Stop: 01/18/17 11:44 Last Admin: 01/18/17 10:26 Dose: 50 mls/hr Potassium Chloride 80 meq/ (Lactated Ringer's) 1,040 mls @ 130 mls/hr IV ONETIME ONE Stop: 01/18/17 20:29 Last Admin: 01/18/17 12:04 Dose: 130 mls/hr Insulin Aspart (Novolog) 0 unit SUBCUT Q6HR [facility] PRN Reason: Protocol Last Admin: 01/11/17 12:06 Dose: Not Given Insulin Aspart (Novolog) 0 unit SUBCUT QIDACANDBED [facility] PRN Reason: Protocol Last Admin: 01/12/17 16:56 Dose: 4 units Insulin Aspart (Novolog) 0 unit SUBCUT Q6HR [facility] PRN Reason: Protocol Last Admin: 01/13/17 00:05 Dose: Not Given Insulin Aspart (Novolog) 0 unit SUBCUT Q6H [facility] PRN Reason: Protocol Last Admin: 01/15/17 04:35 Dose: 3 units Insulin Aspart (Novolog) 0 unit SUBCUT Q6H [facility] PRN Reason: Protocol Last Admin: 01/19/17 18:24 Dose: 9 units Insulin Aspart (Novolog) 0 unit SUBCUT QIDACANDBED [facility] PRN Reason: Protocol Last Admin: 01/21/17 11:58 Dose: 12 units Insulin Detemir (Levemir) 10 unit SUBCUT BEDTIME [facility] Last Admin: 01/12/17 21:28 Dose: 10 units Levalbuterol HCl (Xopenex) 1.25 mg NEB Q4HRRT [facility] Last Admin: 01/17/17 05:25 Dose: 1.25 mg Levalbuterol HCl (Xopenex) Confirm Administered Dose 1.25 mg .ROUTE .STK-MED ONE Stop: 01/16/17 18:02 Last Admin: 01/16/17 19:55 Dose: Not Given Levalbuterol HCl (Xopenex) 1.25 mg NEB QID [facility] Last Admin: 01/17/17 20:49 Dose: 1.25 mg Lorazepam (Ativan) 1 - 3 mg IVPUSH Q4H PRN; Protocol PRN Reason: withdrawal Last Admin: 01/11/17 21:44 Dose: 1 mg Lorazepam (Ativan) 2 mg IVPUSH Q4H PRN PRN Reason: Seizures Last Admin: 01/13/17 13:55 Dose: 2 mg Lorazepam (Ativan) 1 - 3 mg IVPUSH ASDIRECTED PRN; Protocol PRN Reason: withdrawal Last Admin: 01/15/17 02:45 Dose: 2 mg Lorazepam (Ativan) 4 mg IVPUSH Q6H [facility] Last Admin: 01/15/17 05:06 Dose: 4 mg Lorazepam (Ativan) 4 mg IVPUSH Q2H PRN PRN Reason: severe agitation/withdrawl Last Admin: 01/14/17 01:42 Dose: 4 mg Magnesium Sulfate (Pharmacy To Dose - Magnesium Replacement) 1 dose .XX ASDIRECTED [facility] Metoprolol Tartrate (Lopressor) 5 mg IVPUSH Q4H PRN PRN Reason: Tachycardia Last Admin: 01/15/17 21:35 Dose: 5 mg Metoprolol Tartrate (Lopressor) 5 mg IVPUSH Q6H [facility] Last Admin: 01/20/17 12:02 Dose: 5 mg Mometasone Furoate/Formoterol Fumar (Dulera 100-5 Mcg) 2 puff IH ONETIME ONE Stop: 01/21/17 22:01 Last Admin: 01/21/17 21:58 Dose: 2 puff Pantoprazole Sodium (Protonix Iv) 40 mg IVPUSH DAILY [facility] Last Admin: 01/20/17 09:18 Dose: 40 mg Potassium Chloride (Pharmacy To Dose - Potassium Replacement) 1 dose .XX ASDIRECTED [facility] Potassium Chloride (Klor-Con M20) 40 meq PO BID [facility] Stop: 01/21/17 21:01 Last Admin: 01/21/17 21:35 Dose: 40 meq Quetiapine Fumarate (Seroquel) 50 mg PO BEDTIME [facility] Last Admin: 01/20/17 10:53 Dose: Not Given Sodium Chloride (Saline Flush) 10 ml FLUSH ASDIRECTED PRN PRN Reason: Keep Vein Open Last Admin: 01/12/17 22:52 Dose: 10 ml Topiramate (Topamax) 25 mg PO BID [facility] Last Admin: 01/11/17 12:19 Dose: Not Given Trazodone HCl (Trazodone) 50 mg PO BEDTIME PRN PRN Reason: Sleep Last Admin: 01/19/17 20:41 Dose: 50 mg - Exam Quality Assessment: DVT Prophylaxis General: Alert, Oriented, Cooperative, No Acute Distress HEENT: Pupils Equal, Pupils Reactive, EOMI Neck: Supple, Trachea Midline Lungs: Normal Respiratory Effort Cardiovascular: Regular Rate GI/Abdominal Exam: Normal Bowel Sounds, Soft, Non-Tender, No Organomegaly, No Distention (Female) Exam: Deferred Back Exam: Normal Inspection Extremities: Normal Inspection Skin: Warm Neurological: No New Focal Deficit Psy/Mental Status: Alert - Problem List & Annotations (1) Encephalopathy acute SNOMED Code(s): 5819313 Code(s): G93.40 - ENCEPHALOPATHY, UNSPECIFIED Status: Acute Current Visit : Yes (2) Personality disorder in adult SNOMED Code(s): 24884663 Code(s): F60.9 - PERSONALITY DISORDER, UNSPECIFIED Status: Acute Current Visit: Yes (3) Suicide attempt by multiple drug overdose SNOMED Code(s): 92392901 Code(s): T50.902A - POISONING BY UNSP DRUG/MEDS/BIOL SUBST, SELF-HARM, INIT Status: Acute Current Visit: Yes - Problem List Review Problem List Initiated/Reviewed/Updated: Yes - My Orders Last 24 Hours: My Active Orders 01/21/17 12:43 C DIFFICILE BY PCR W/NAP1 [MOLEC] Routine 01/21/17 12:45 Saccharomyces Boulardii [Florastor] 250 mg PO BID 01/21/17 17:00 Insulin Aspart [NovoLOG] See Protocol SUBCUT QIDACANDBED 01/21/17 20:32 Central Line PICC Discontinue [OM.PC] Routine 01/21/17 Dinner ADA Diabetic [[employer] Diet] [DIET] 01/23/17 05:00 PRO B-TYPE NATRIUR PEPT,BNPPRO [CHEM] DAILY 01/24/17 05:00 PRO B-TYPE NATRIUR PEPT,BNPPRO [CHEM] DAILY - Assessment Assessment:: 1. S/P suicidal attempts with prescription drug overdose; history of ETOH abuse /dependence. 2. S/P acute withdrawal syndrome of multiple medications. 3. Altered mental status due--->Metabolic Encephalopathy,resolved. 4. Urinary tract infection due to Escherichia coli-->completed ATB therapy. 5. Rhabdomyolysis, resolving; current CPK--.<500; resolved. 6. Pneumonia versus atelectasis versus pulmonary vascular congestion; diuresed-- ->resolved. 7. Electrolytes abnormalities: start oral replacement. 8. 2D echo structurally normal heart, grade I diastolic dysfunction, LVEF WNL. - Plan Plan:: 1. Continue LR at 50 cc/hr; start full liquids; complete current TPN, dc today. 2. IV Lasix 40 mg twice daily, adjust as needed. 3. Bronchodilator therapy with Xopenex every 4 hours as needed. Respiratory therapy evaluation and treatment. 4. DC PICC 6. Clarify home meds. 7. Start meds suggested by psychiatry. 8. DVT prophylaxis with MJ hose/Lovenox. 10. Social service evaluation for discharge planning; change of plan to psych/ substance abuse; no longer needs SNF. senior living psychiatric facility is sought followed by inpatient substance abuse treatment. LOS>96 hours, additional assessment by psychiatric/SA pending; meds were added by Dr Gallardo; will be committed at [place].
[2017-01-22] MEDS ORDERED: Benzocaine/Cetylpyridinium/Menthol Lozenge MUCMEM PRN (19:24)
[2017-01-22] MEDS: QUEtiapine 25 MG Tab PO SCH (20:17)
[2017-01-22] MEDS: Temazepam 15 MG Cap PO SCH (20:18)
[2017-01-22] MEDS: Saccharomyces Boulardii (Probiotic) 250 MG Cap PO SCH (20:19)
[2017-01-23] MEDS: Pantoprazole 40 MG Tab.CR PO SCH (05:20)
[2017-01-23] MEDS: Thiamine 100 MG Tab PO SCH (08:52)
[2017-01-23] MEDS: Saccharomyces Boulardii (Probiotic) 250 MG Cap PO SCH ×2 (08:52→11:33)
[2017-01-23] MEDS: Enoxaparin 40 MG/0.4 ML Syringe SUBCUT SCH (08:52)
[2017-01-23] MEDS: Insulin Detemir 100 Units/ML 3 ML Pen SUBCUT SCH (08:53)
[2017-01-23] MEDS: FLUoxetine 20 MG Cap PO SCH (08:53)
[2017-01-23] MEDS: Topiramate 25 MG Tab PO SCH (08:53)
[2017-01-23] MEDS: Folic Acid 1 MG Tab PO SCH (08:53)
[2017-01-23] MEDS: Hydrochlorothiazide/Triamterene 50-75 MG Tab PO SCH (08:53)
[2017-01-23] MEDS: Insulin Aspart 100 Units/ML 3 ML Pen SUBCUT SCH ×2 (08:54→11:32)
[2017-01-23] MEDS ORDERED: Lisinopril 20 MG Tab PO SCH (09:00)
[2017-01-23] MEDS: Levalbuterol HCl 1.25 MG/3 ML Neb NEB SCH (10:38)
[2017-01-23] MEDS ORDERED: Magnesium Sulfate/Water 4 GM in Premix Bag 1 BAG IV ONE (11:00)
--- NOTE | 2017-01-23 13:39 | PCM.DCSUM1 ---
Discharge Summary - Hospital Course Free Text/Narrative:: 51 year old female attempted suicide with a bowel of medication as described in the H and P. She was treated medically for withdrawal. The patient also had a UTI as well as rhabdomyolysis. She remained in the ICU for aggressive management of medical needs, the nigth of 01/15 her neuro exam changed and a CT of the head was performed this was negative for a CVA. An EEG was performed that was consistent with a metabolic encephalopathy, thus the patient had supported care and slowly became alert and oriented. The consult for psych as well as substance abuse were performed. Treatment for ARF, AUTI were continued. PT/OT were able to complete their consults. The patient had an involuntary commitment, when medically stable was transferred to [facility] for initially psychiatric care followed by substance abuse treatment. Throughout the hospital stay, there is documentation of a long standing abuse of alcohol. She was escorted by the [employer] department to [place]. Primary Dx Major Depressive disorder Bipolar affective disorder Alcohol Dependence Rhabdomyolysis Acute renal failure Diabetes mellitus, type 1 Metabolic encephalopathy Disposition [facility], [place] Activity As tolerated Diet ADA Medication See list Follow up TBD 1. Suicidal attempts with prescription drug overdose. 2. Acute withdrawal syndrome. 3. Altered mental status due---metabolic encephalopathy. 4. Urinary tract infection due to Escherichia coli. 5. Rhabdomyolysis, resolving. 6. Pneumonia versus atelectasis versus pulmonary vascular congestion; diuresed. - Plan Plan:: 1. Continue ICU management. 2. We'll discontinue IV fluid hydration as CPK level has reduced considerably. We'll give IV fluid boluses as needed. 3. IV Lasix 40 mg twice daily. 4. Bronchodilator therapy with Xopenex every 4 hours as needed. Respiratory therapy evaluation and treatment. 5. Oxygen supplementation therapy to maintain oxygen saturation above 90%. 6. Continue IV antibiotic therapy with Rocephin and add azithromycin 500 mg twice daily. 7. DC CIWA, neurochecks as ordered; aspiration precautions. 8. DVT prophylaxis with MJ hose. Pharmacologic anticoagulation contraindicated as patient has thrombocytopenia from chronic alcohol use. 9. Substance abuse counseling and psychiatry consults in the chart for when patient is stable. 10. Social service evaluation for discharge planning. 11. Dietary consult re: TPN. 12. Dextrose for free water, correct sodium - Discharge Data Discharge Date: 01/23/17 Discharge Disposition: DC/Tfer to Psych Hosp/Unit 65 Condition: Good - Discharge Diagnosis/Problem(s) (1) Encephalopathy acute SNOMED Code(s): 0474877 ICD Code: G93.40 - ENCEPHALOPATHY, UNSPECIFIED Status: Acute (2) Personality disorder in adult SNOMED Code(s): 56800986 ICD Code: F60.9 - PERSONALITY DISORDER, UNSPECIFIED Status: Acute (3) Suicide attempt by multiple drug overdose SNOMED Code(s): 98392529 ICD Code: T50.902A - POISONING BY UNSP DRUG/MEDS/BIOL SUBST, SELF-HARM, INIT Status: Acute - Patient Summary/Data Consults: Consultations 01/10/17 21:32 Consult to Case Management [CONS] Routine Consult to Label Paster [CONS] Routine Respiratory Care Assess and Treatment [CONS] Routine 01/11/17 08:00 Consult for Substance Abuse [CONS] Routine Consult to Physician [CONS] Routine 01/16/17 06:31 Nutrition Reassessment/Plan, Adult [Consult to Retail Store Associate] [CONS] Routine 01/17/17 09:46 Consult to Physical Therapy [PT Evaluation and Treatment] [CONS] Routine 01/18/17 14:46 Consult to Occupational Therapy [OT Evaluation and Treatment] [CONS] Routine 01/18/17 17:00 Consult to Speech Language Pathology [LUMP ROLLER Evaluation and Treatment] [CONS] Routine 01/20/17 10:23 Consult to Spiritual Care [CONS] Routine - Patient Instructions Diet: Diabetic Diet Activity: As Tolerated Driving: Do Not Drive Showering/Bathing: May Shower Notify Provider of: Fever - Discharge Plan Prescriptions/Med Rec: Benzocaine/Cetylpyrd/Menthol [Cepacol Sore Throat] 1 lozenge MUCMEM Q2HR PRN # 60 rusty PRN Reason: Sore Throat FLUoxetine [PROzac] 20 mg PO DAILY #30 cap Folic Acid 1 mg PO DAILY #30 tablet HCTZ/Triamterene [Maxzide 50-75 MG] 1 each PO DAILY #30 tablet Insulin Detemir [Levemir] 10 unit SUBCUT BID #30 pen Lisinopril [Prinivil] 20 mg PO DAILY #30 tablet Pantoprazole [ProTONIX] 40 mg PO BIDAC #60 tab.cr QUEtiapine [SEROquel] 50 mg PO BEDTIME #30 tablet Temazepam [Restoril] 15 mg PO BEDTIME #30 cap Thiamine [Vitamin B-1] 100 mg PO DAILY #30 tablet Topiramate [Topamax] 25 mg PO BID #60 tablet Home Medications: Home Meds Iron 1 tab PO DAILY 07/28/16 [History] Aspirin 81 mg PO DAILY #30 tab.chew 07/31/16 [Rx] Albuterol [Ventolin HFA] 2 puff INH Q4H PRN 01/21/17 [History] Budesonide/Formoterol Fumarate [Symbicort 80-4.5 Mcg Inhaler] 2 puff IH BID [History] Benzocaine/Cetylpyrd/Menthol [Cepacol Sore Throat] 1 lozenge MUCMEM Q2HR PRN # 60 rusty 01/23/17 [Rx] FLUoxetine [PROzac] 20 mg PO DAILY #30 cap 01/23/17 [Rx] Folic Acid 1 mg PO DAILY #30 tablet 01/23/17 [Rx] HCTZ/Triamterene [Maxzide 50-75 MG] 1 each PO DAILY #30 tablet 01/23/17 [Rx] Insulin Detemir [Levemir] 10 unit SUBCUT BID #30 pen 01/23/17 [Rx] Lisinopril [Prinivil] 20 mg PO DAILY #30 tablet 01/23/17 [Rx] Pantoprazole [ProTONIX] 40 mg PO BIDAC #60 tab.cr 01/23/17 [Rx] QUEtiapine [SEROquel] 50 mg PO BEDTIME #30 tablet 01/23/17 [Rx] Temazepam [Restoril] 15 mg PO BEDTIME #30 cap 01/23/17 [Rx] Thiamine [Vitamin B-1] 100 mg PO DAILY #30 tablet 01/23/17 [Rx] Topiramate [Topamax] 25 mg PO BID #60 tablet 01/23/17 [Rx] Patient Handouts: Alcohol Intoxication, [id number], Urinary Tract Infection, Adult, [id number], Drug Overdose, Iron Deficiency Anemia, Adult, Stress and Stress Management, Alcohol Withdrawal, [id number] Forms: ED Department Discharge Referrals: PCP,None [Primary Care Provider] - - Discharge Summary/Plan Comment DC Time >30 min.: No - General Info Functional Status: Reports: Tolerating Diet, Ambulating, Urinating - Review of Systems General: Reports: No Symptoms HEENT: Reports: No Symptoms Pulmonary: Reports: No Symptoms Cardiovascular: Reports: No Symptoms Gastrointestinal: Reports: No Symptoms Genitourinary: Reports: No Symptoms Musculoskeletal: Reports: No Symptoms Skin: Reports: No Symptoms Neurological: Reports: No Symptoms Psychiatric: Reports: No Symptoms - Patient Data Vitals - Most Recent: Last Vital Signs Temp 37.1 C 01/23/17 05:17 Pulse 100 01/23/17 09:31 Resp 14 01/23/17 05:17 BP 113/58 L 01/23/17 09:31 Pulse Ox 98 01/23/17 10:40 Weight - Most Recent: 76.566 kg I&O - Last 24 hours: Intake & Output 01/22/17 01/23/17 01/23/17 22:59 06:59 14:59 Intake Total 1390 400 120 Output Total 700 Balance 690 400 120 Lab Results - Last 24 hrs: Laboratory Results - last 24 hr 01/22/17 01/22/17 01/22/17 Range/Units 13:55 16:50 20:12 WBC (3.98-10.04) K/mm3 RBC (3.98-5.22) M/mm3 Hgb (11.2-15.7) gm/L Hct (34.1-44.9) % MCV (79.4-94.8) fl MCH (25.6-32.2) pg MCHC (32.2-35.5) g/dl RDW Std Deviation (36.4-46.3) fL Plt Count (182-369) K/mm3 MPV (9.4-12.3) fl Neut % (Auto) (34.0-71.1) % Lymph % (Auto) (19.3-51.7) % [place] % (Auto) (4.7-12.5) % Eos % (Auto) (0.7-5.8) Baso % (Auto) (0.1-1.2) % Neut # (Auto) (1.56-6.13) K/mm3 Lymph # (Auto) (1.18-3.74) K/mm3 [place] # (Auto) (0.24-0.36) K/mm3 Eos # (Auto) (0.04-0.36) K/mm3 Baso # (Auto) (0.01-0.08) K/mm3 Manual Slide Review Sodium (136-145) mEq/L Potassium (3.5-5.1) mEq/L Chloride (98-107) mEq/L Carbon Dioxide (21-32) mEq/L Anion Gap (5-15) BUN (7-18) mg/dL Creatinine (0.55-1.02) mg/dL Est Cr Clr Drug Dosing mL/min Estimated GFR (MDRD) (>60) mL/min BUN/Creatinine Ratio (14-18) Glucose (74-106) mg/dL POC Glucose 318 H 285 H 128 H (70-105) mg/dL Calcium (8.5-10.1) mg/dL Magnesium (1.8-2.4) mg/dl Total Bilirubin (0.2-1.0) mg/dL AST (15-37) U/L ALT (14-59) U/L Alkaline Phosphatase (46-116) U/L NT-Pro-B Natriuret Pep (0-125) pg/mL Total Protein (6.4-8.2) g/dl Albumin (3.4-5.0) g/dl Globulin gm/dL Albumin/Globulin Ratio (1-2) 01/23/17 01/23/17 01/23/17 Range/Units 05:05 05:05 06:16 WBC (3.98-10.04) K/mm3 RBC (3.98-5.22) M/mm3 Hgb (11.2-15.7) gm/L Hct (34.1-44.9) % MCV (79.4-94.8) fl MCH (25.6-32.2) pg MCHC (32.2-35.5) g/dl RDW Std Deviation (36.4-46.3) fL Plt Count (182-369) K/mm3 MPV (9.4-12.3) fl Neut % (Auto) (34.0-71.1) % Lymph % (Auto) (19.3-51.7) % [place] % (Auto) (4.7-12.5) % Eos % (Auto) (0.7-5.8) Baso % (Auto) (0.1-1.2) % Neut # (Auto) (1.56-6.13) K/mm3 Lymph # (Auto) (1.18-3.74) K/mm3 [place] # (Auto) (0.24-0.36) K/mm3 Eos # (Auto) (0.04-0.36) K/mm3 Baso # (Auto) (0.01-0.08) K/mm3 Manual Slide Review Sodium 140 (136-145) mEq/L Potassium 4.5 (3.5-5.1) mEq/L Chloride 106 (98-107) mEq/L Carbon Dioxide 19 L (21-32) mEq/L Anion Gap 19.5 H (5-15) BUN 14 (7-18) mg/dL Creatinine 1.8 H (0.55-1.02) mg/dL Est Cr Clr Drug Dosing 38.21 mL/min Estimated GFR (MDRD) 30 (>60) mL/min BUN/Creatinine Ratio 7.8 L (14-18) Glucose 115 H (74-106) mg/dL POC Glucose 133 H (70-105) mg/dL Calcium 9.0 (8.5-10.1) mg/dL Magnesium 1.3 L (1.8-2.4) mg/dl Total Bilirubin 0.5 (0.2-1.0) mg/dL AST 29 (15-37) U/L ALT 51 (14-59) U/L Alkaline Phosphatase 69 (46-116) U/L NT-Pro-B Natriuret Pep 245 H (0-125) pg/mL Total Protein 6.4 (6.4-8.2) g/dl Albumin 2.6 L (3.4-5.0) g/dl Globulin 3.8 gm/dL Albumin/Globulin Ratio 0.7 L (1-2) 01/23/17 01/23/17 Range/Units 09:45 11:19 WBC 4.00 (3.98-10.04) K/mm3 RBC 2.90 L (3.98-5.22) M/mm3 Hgb 10.1 L (11.2-15.7) gm/L Hct 31.5 L (34.1-44.9) % MCV 108.6 H (79.4-94.8) fl MCH 34.8 H (25.6-32.2) pg MCHC 32.1 L (32.2-35.5) g/dl RDW Std Deviation 50.1 H (36.4-46.3) fL Plt Count 271 (182-369) K/mm3 MPV 10.7 (9.4-12.3) fl Neut % (Auto) 49.6 (34.0-71.1) % Lymph % (Auto) 31.3 (19.3-51.7) % [place] % (Auto) 13.0 H (4.7-12.5) % Eos % (Auto) 3.8 (0.7-5.8) Baso % (Auto) 1.8 H (0.1-1.2) % Neut # (Auto) 1.99 (1.56-6.13) K/mm3 Lymph # (Auto) 1.25 (1.18-3.74) K/mm3 [place] # (Auto) 0.52 H (0.24-0.36) K/mm3 Eos # (Auto) 0.15 (0.04-0.36) K/mm3 Baso # (Auto) 0.07 (0.01-0.08) K/mm3 Manual Slide Review Abnormal smear Sodium (136-145) mEq/L Potassium (3.5-5.1) mEq/L Chloride (98-107) mEq/L Carbon Dioxide (21-32) mEq/L Anion Gap (5-15) BUN (7-18) mg/dL Creatinine (0.55-1.02) mg/dL Est Cr Clr Drug Dosing mL/min Estimated GFR (MDRD) (>60) mL/min BUN/Creatinine Ratio (14-18) Glucose (74-106) mg/dL POC Glucose 221 H (70-105) mg/dL Calcium (8.5-10.1) mg/dL Magnesium (1.8-2.4) mg/dl Total Bilirubin (0.2-1.0) mg/dL AST (15-37) U/L ALT (14-59) U/L Alkaline Phosphatase (46-116) U/L NT-Pro-B Natriuret Pep (0-125) pg/mL Total Protein (6.4-8.2) g/dl Albumin (3.4-5.0) g/dl Globulin gm/dL Albumin/Globulin Ratio (1-2) Med Orders - Current: Current Medications Benzocaine/Menthol (Cepacol Sore Throat) 1 lozenge MUCMEM Q2HR PRN PRN Reason: Sore Throat Last Admin: 01/22/17 20:18 Dose: 1 lozenge Dextrose/Water (Dextrose 50% In Water) 50 ml IVPUSH ASDIRECTED PRN PRN Reason: Hypoglycemia Enoxaparin Sodium (Lovenox) 40 mg SUBCUT DAILY [facility] Last Admin: 01/23/17 08:52 Dose: 40 mg Fluoxetine HCl (Prozac) 20 mg PO DAILY [facility] Last Admin: 01/23/17 08:53 Dose: 20 mg Folic Acid (Folic Acid) 1 mg PO DAILY [facility] Last Admin: 01/23/17 08:53 Dose: 1 mg Haloperidol Lactate (Haldol) 0.5 mg IVPUSH Q6H PRN PRN Reason: restlessness Magnesium Sulfate 4 gm/ Premix 100 mls @ 25 mls/hr IV ONETIME ONE Stop: 01/23/17 14:59 Last Admin: 01/23/17 11:26 Dose: 25 mls/hr Insulin Aspart (Novolog) 0 unit SUBCUT QIDACANDBED [facility] PRN Reason: Protocol Last Admin: 01/23/17 11:32 Dose: 4 units Insulin Detemir (Levemir) 10 unit SUBCUT BID [facility] Last Admin: 01/23/17 08:53 Dose: 10 units Levalbuterol HCl (Xopenex) 1.25 mg NEB QIDRT [facility] Last Admin: 01/23/17 10:38 Dose: 1.25 mg Lisinopril (Prinivil) 20 mg PO DAILY [facility] Last Admin: 01/23/17 08:53 Dose: 20 mg Lorazepam (Ativan) 0 mg IVPUSH ASDIRECTED PRN; Protocol PRN Reason: withdrawal Mometasone Furoate/Formoterol Fumar (Dulera 100-5 Mcg) 2 puff IH BIDRT [facility] Last Admin: 01/22/17 20:58 Dose: 2 puff Morphine Sulfate (Morphine) 2 mg IVPUSH Q2H PRN PRN Reason: pain, NVPS agitation Last Admin: 01/19/17 18:34 Dose: 2 mg Pantoprazole Sodium (Protonix) 40 mg PO BIDAC [facility] Last Admin: 01/23/17 05:20 Dose: 40 mg Quetiapine Fumarate (Seroquel) 50 mg PO BEDTIME [facility] Last Admin: 01/22/17 20:17 Dose: 50 mg Saccharomyces Boulardii (Florastor) 250 mg PO BID [facility] Last Admin: 01/23/17 11:33 Dose: 250 mg Sodium Chloride (Saline Flush) 10 ml FLUSH ASDIRECTED PRN PRN Reason: Keep Vein Open Last Admin: 01/14/17 19:53 Dose: 10 ml Temazepam (Restoril) 15 mg PO BEDTIME [facility] Last Admin: 01/22/17 20:18 Dose: 15 mg Thiamine HCl (Vitamin B-1) 100 mg PO DAILY [facility] Last Admin: 01/23/17 08:52 Dose: 100 mg Topiramate (Topamax) 25 mg PO BID [facility] Last Admin: 01/23/17 08:53 Dose: 25 mg Triamterene/HCTZ (Maxzide 50-75 Mg) 1 each PO DAILY [facility] Last Admin: 01/23/17 08:53 Dose: 1 each Discontinued Medications Albuterol/Ipratropium (Duoneb 3.0-0.5 Mg/3 Ml) 3 ml NEB Q4HRRT [facility] Last Admin: 01/14/17 09:58 Dose: 3 ml Albuterol/Ipratropium (Duoneb 3.0-0.5 Mg/3 Ml) Confirm Administered Dose 3 ml .ROUTE .STK-MED ONE Stop: 01/13/17 08:53 Last Admin: 01/13/17 09:03 Dose: Not Given Bisacodyl (Dulcolax) 10 mg RECTAL ONETIME ONE Stop: 01/17/17 10:01 Last Admin: 01/17/17 13:37 Dose: Not Given Bisacodyl (Dulcolax) 10 mg RECTAL ONETIME ONE Stop: 01/17/17 13:16 Last Admin: 01/17/17 13:35 Dose: 10 mg Budesonide/Formoterol Fumarate (Symbicort 80-4.5 Mcg) 0 gm INH BID [facility] Clonidine HCl (Catapres) 0.1 mg PO Q4H PRN PRN Reason: Agitation Dextrose/Water (Dextrose 50% In Water) 50 ml IVPUSH ASDIRECTED PRN PRN Reason: hypoglycemia Diphenhydramine HCl (Benadryl) 50 mg IVPUSH ONETIME ONE Stop: 01/10/17 21:57 Last Admin: 01/10/17 22:28 Dose: 50 mg Famotidine (Pepcid) 20 mg IVPUSH ONETIME ONE Stop: 01/10/17 22:12 Last Admin: 01/10/17 22:28 Dose: 20 mg Famotidine (Pepcid) 20 mg PO DAILY [facility] Last Admin: 01/11/17 10:31 Dose: Not Given Folic Acid (Folic Acid) 1 mg PO DAILY [facility] Last Admin: 01/11/17 10:31 Dose: Not Given Furosemide (Lasix) 20 mg IVPUSH NOW ONE Stop: 01/13/17 10:43 Last Admin: 01/13/17 10:56 Dose: 20 mg Furosemide (Lasix) 40 mg IVPUSH NOW ONE Stop: 01/14/17 11:38 Last Admin: 01/14/17 11:51 Dose: 40 mg Furosemide (Lasix) 40 mg IVPUSH NOW ONE Stop: 01/15/17 09:17 Last Admin: 01/15/17 09:27 Dose: 40 mg Furosemide (Lasix) 40 mg IVPUSH BID [facility] Stop: 01/16/17 21:01 Last Admin: 01/16/17 21:54 Dose: 40 mg Furosemide (Lasix) 40 mg IVPUSH DAILY [facility] Last Admin: 01/20/17 09:18 Dose: 40 mg Hydralazine HCl (Apresoline) 20 mg PO Q6H PRN PRN Reason: Hypertension Hydralazine HCl (Apresoline) 10 mg IVPUSH Q2H PRN PRN Reason: Hypertension Last Admin: 01/18/17 20:34 Dose: 10 mg Sodium Chloride (Normal Saline) 1,000 mls @ 999 mls/hr IV ONETIME ONE Stop: 01/10/17 19:40 Last Admin: 01/10/17 18:52 Dose: 999 mls/hr Ceftriaxone Sodium 1 gm/ (Sodium Chloride) 100 mls @ 200 mls/hr IV ONETIME ONE Stop: 01/10/17 20:15 Last Admin: 01/10/17 19:59 Dose: 200 mls/hr Magnesium Sulfate 2 gm/ Premix 50 mls @ 25 mls/hr IV ONETIME ONE Stop: 01/10/17 21:46 Last Admin: 01/10/17 21:08 Dose: 25 mls/hr Sodium Chloride (Normal Saline) 1,000 mls @ 250 mls/hr IV ASDIRECTED [facility] Last Admin: 01/11/17 13:27 Dose: 250 mls/hr Sodium Chloride (Normal Saline) 1,000 mls @ 999 mls/hr IV ASDIRECTED [facility] Last Admin: 01/10/17 22:19 Dose: 999 mls/hr Sodium Chloride (Normal Saline) 1,000 mls @ 999 mls/hr IV ONETIME ONE Stop: 01/10/17 22:46 Last Admin: 01/10/17 22:18 Dose: 999 mls/hr Thiamine HCl 200 mg/ Sodium (Chloride) 102 mls @ 204 mls/hr IV ONETIME ONE Stop: 01/10/17 21:55 Last Admin: 01/10/17 22:39 Dose: 204 mls/hr Magnesium Sulfate 2 gm/ Premix 50 mls @ 25 mls/hr IV ONETIME ONE Stop: 01/11/17 00:13 Last Admin: 01/10/17 23:31 Dose: 25 mls/hr Levofloxacin/Dextrose 250 mg/ (Premix) 50 mls @ 50 mls/hr IV ONETIME ONE Stop: 01/10/17 23:15 Last Admin: 01/11/17 00:28 Dose: 50 mls/hr Dextrose/Sodium Chloride (Dextrose 5%-Normal Saline) 1,000 mls [facility] Admin: 01/12/17 07:24 Dose: 150 mls/hr Magnesium Sulfate/Dextrose 1 (gm/ Premix) 100 mls @ 100 mls/hr IV Q1H [facility] Stop: 01/12/17 10:59 Last Admin: 01/12/17 10:41 Dose: 100 mls/hr Ceftriaxone Sodium 1 gm/ (Sodium Chloride) 100 mls @ 200 mls/hr IV Q24H [facility] Last Admin: 01/17/17 14:59 Dose: 200 mls/hr Dextrose/Sodium Chloride (Dextrose 5%-1/2 Ns) 1,000 mls @ 125 [facility] Last Admin: 01/13/17 06:45 Dose: 125 mls/hr Magnesium Sulfate/Dextrose 1 (gm/ Premix) 100 mls @ 100 mls/hr IV Q1H [facility] Stop: 01/13/17 10:59 Potassium Chloride 10 meq/ (Premix) 100 mls @ 100 mls/hr IV Q1H [facility] Stop: 01/13/17 14:59 Last Admin: 01/13/17 13:08 Dose: 100 mls/hr Magnesium Sulfate 2 gm/ Premix 50 mls @ 25 mls/hr IV ONETIME ONE Stop: 01/13/17 10:41 Last Admin: 01/13/17 08:46 Dose: 25 mls/hr Magnesium Sulfate (Magnesium Sulfate 2 Gm In Water 50 Ml) Confirm Administered Dose 50 mls @ as directed .ROUTE .[facility] ONE Stop: 01/13/17 08:43 Last Admin: 01/13/17 08:59 Dose: Not Given Sodium Chloride (Normal Saline) 1,000 mls @ 125 mls/hr IV ASDIRECTED [facility] Last Admin: 01/13/17 14:37 Dose: 125 mls/hr Sodium Chloride (Normal Saline) 1,000 mls @ 200 mls/hr IV ASDIRECTED [facility] Last Infusion: 01/14/17 12:40 Dose: 100 mls/hr Potassium Chloride 10 meq/ (Premix) 100 mls @ 100 mls/hr IV Q1H [facility] Stop: 01/14/17 16:29 Last Admin: 01/14/17 16:17 Dose: 100 mls/hr Magnesium Sulfate 4 gm/ Premix 100 mls @ 25 mls/hr IV ONETIME [facility] Stop: 01/14/17 12:29 Last Admin: 01/14/17 08:48 Dose: 25 mls/hr Sodium Chloride (Normal Saline) 1,000 mls @ 100 mls/hr IV ASDIRECTED [facility] Last Admin: 01/15/17 16:00 Dose: 100 mls/hr Azithromycin 500 mg/ Sodium (Chloride) 250 mls @ 250 mls/hr IV Q24H [facility] Last Admin: 01/17/17 13:47 Dose: 250 mls/hr Magnesium Sulfate 2 gm/ Premix 50 mls @ 25 mls/hr IV ONETIME ONE Stop: 01/16/17 06:42 Last Admin: 01/16/17 05:18 Dose: 25 mls/hr Potassium Chloride 10 meq/ (Premix) 100 mls @ 100 mls/hr IV Q1H [facility] Stop: 01/16/17 10:59 Last Admin: 01/16/17 12:38 Dose: 100 mls/hr Dextrose/Water (Dextrose 5% In Water) 1,000 mls @ 75 mls/hr IV ASDIRECTED [facility] Last Admin: 01/16/17 22:00 Dose: 75 mls/hr Multivitamins/Minerals 10 ml/Amino Acids/Electrolytes/Dextrose 1,010 mls @ 40 mls/hr IV Q24H [facility] Magnesium Sulfate 2 gm/ Premix 50 mls @ 25 mls/hr IV ONETIME ONE Stop: 01/16/17 13:14 Last Admin: 01/16/17 11:58 Dose: 25 mls/hr Fat Emulsion Intravenous (Intralipid 20%) 500 mls @ 43 mls/hr IV [id number] [facility] Last Infusion: 01/18/17 19:13 Dose: 43 mls/hr Multivitamins/Minerals 10 ml/Amino Acids/Electrolytes/Dextrose 1,010 mls @ 40 mls/hr IV ONETIME ONE Stop: 01/17/17 16:14 Last Admin: 01/16/17 15:21 Dose: 40 mls/hr Potassium Chloride 10 meq/ (Premix) 100 mls @ 100 mls/hr IV Q1H [facility] Stop: 01/17/17 03:29 Last Admin: 01/17/17 02:46 Dose: 100 mls/hr Magnesium Sulfate (Magnesium Sulfate 2 Gm In Water 50 Ml) 50 mls @ 25 mls/hr IV Q2H [facility] Stop: 01/17/17 01:29 Last Admin: 01/16/17 23:37 Dose: 25 mls/hr Magnesium Sulfate 2 gm/ Premix 50 mls @ 25 mls/hr IV ONETIME ONE Stop: 01/17/17 11:40 Last Admin: 01/17/17 13:38 Dose: Not Given Lactated Ringer's (Ringers, Lactated) 1,000 mls @ 50 mls/hr IV ASDIRECTED [facility] Last Admin: 01/21/17 22:22 Dose: 50 mls/hr Magnesium Sulfate 2 gm/ Premix 50 mls @ 25 mls/hr IV ONETIME ONE Stop: 01/17/17 12:14 Last Admin: 01/17/17 12:08 Dose: 25 mls/hr Magnesium Sulfate 2 gm/ Premix 50 mls @ 25 mls/hr IV ONETIME ONE Stop: 01/17/17 19:59 Last Admin: 01/17/17 19:14 Dose: 25 mls/hr Potassium Chloride 10 meq/ (Premix) 100 mls @ 100 mls/hr IV Q1H [facility] Stop: 01/17/17 15:59 Last Admin: 01/17/17 16:19 Dose: 100 mls/hr Multivitamins/Minerals 10 ml/Amino Acids/Electrolytes/Dextrose 1,010 mls @ 55 mls/hr IV ONETIME ONE Stop: 01/18/17 09:21 Last Admin: 01/17/17 16:22 Dose: 55 mls/hr Potassium Chloride 10 meq/ (Premix) 100 mls @ 100 mls/hr IV Q1H [facility] Stop: 01/17/17 17:14 Last Admin: 01/17/17 16:23 Dose: Not Given Multivitamins/Minerals 10 ml/Amino Acids/Electrolytes/Dextrose 1,010 mls @ 70 mls/hr IV DAILY@1000 MAGO Last Admin: 01/19/17 20:00 Dose: Not Given Amino Acids/Electrolytes/Dextrose (Clinimix E 4.25/25) 1,000 mls @ 70 mls/hr IV DAILY@2300 MAGO Last Admin: 01/18/17 23:07 Dose: 70 mls/hr Magnesium Sulfate 4 gm/ Premix 100 mls @ 50 mls/hr IV ONETIME ONE Stop: 01/18/17 11:44 Last Admin: 01/18/17 10:26 Dose: 50 mls/hr Potassium Chloride 80 meq/ (Lactated Ringer's) 1,040 mls @ 130 mls/hr IV ONETIME ONE Stop: 01/18/17 20:29 Last Admin: 01/18/17 12:04 Dose: 130 mls/hr Insulin Aspart (Novolog) 0 unit SUBCUT Q6HR [facility]O PRN Reason: Protocol Last Admin: 01/11/17 12:06 Dose: Not Given Insulin Aspart (Novolog) 0 unit SUBCUT QIDACANDBED MAGO PRN Reason: Protocol Last Admin: 01/12/17 16:56 Dose: 4 units Insulin Aspart (Novolog) 0 unit SUBCUT Q6HR [facility]O PRN Reason: Protocol Last Admin: 01/13/17 00:05 Dose: Not Given Insulin Aspart (Novolog) 0 unit SUBCUT Q6H [facility] PRN Reason: Protocol Last Admin: 01/15/17 04:35 Dose: 3 units Insulin Aspart (Novolog) 0 unit SUBCUT Q6H MAGO PRN Reason: Protocol Last Admin: 01/19/17 18:24 Dose: 9 units Insulin Aspart (Novolog) 0 unit SUBCUT QIDACANDBED [facility] PRN Reason: Protocol Last Admin: 01/21/17 11:58 Dose: 12 units Insulin Detemir (Levemir) 10 unit SUBCUT BEDTIME [facility] Last Admin: 01/12/17 21:28 Dose: 10 units Levalbuterol HCl (Xopenex) 1.25 mg NEB Q4HRRT [facility] Last Admin: 01/17/17 05:25 Dose: 1.25 mg Levalbuterol HCl (Xopenex) Confirm Administered Dose 1.25 mg .ROUTE [facility] Stop: 01/16/17 18:02 Last Admin: 01/16/17 19:55 Dose: Not Given Levalbuterol HCl (Xopenex) 1.25 mg NEB QID [facility] Last Admin: 01/17/17 20:49 Dose: 1.25 mg Lisinopril (Prinivil) 10 mg PO DAILY [facility] Last Admin: 01/22/17 09:56 Dose: 10 mg Lorazepam (Ativan) 1 - 3 mg IVPUSH Q4H PRN; Protocol PRN Reason: withdrawal Last Admin: 01/11/17 21:44 Dose: 1 mg Lorazepam (Ativan) 2 mg IVPUSH Q4H PRN PRN Reason: Seizures Last Admin: 01/13/17 13:55 Dose: 2 mg Lorazepam (Ativan) 1 - 3 mg IVPUSH ASDIRECTED PRN; Protocol PRN Reason: withdrawal Last Admin: 01/15/17 02:45 Dose: 2 mg Lorazepam (Ativan) 4 mg IVPUSH Q6H [facility] Last Admin: 01/15/17 05:06 Dose: 4 mg Lorazepam (Ativan) 4 mg IVPUSH Q2H PRN PRN Reason: severe agitation/withdrawl Last Admin: 01/14/17 01:42 Dose: 4 mg Magnesium Sulfate (Pharmacy To Dose - Magnesium Replacement) 1 dose .XX ASDIRECTED [facility] Metoprolol Tartrate (Lopressor) 5 mg IVPUSH Q4H PRN PRN Reason: Tachycardia Last Admin: 01/15/17 21:35 Dose: 5 mg Metoprolol Tartrate (Lopressor) 5 mg IVPUSH Q6H [facility] Last Admin: 01/20/17 12:02 Dose: 5 mg Mometasone Furoate/Formoterol Fumar (Dulera 100-5 Mcg) 2 puff IH ONETIME ONE Stop: 01/21/17 22:01 Last Admin: 01/21/17 21:58 Dose: 2 puff Pantoprazole Sodium (Protonix Iv) 40 mg IVPUSH DAILY [facility] Last Admin: 01/20/17 09:18 Dose: 40 mg Potassium Chloride (Pharmacy To Dose - Potassium Replacement) 1 dose .XX ASDIRECTED [facility] Potassium Chloride (Klor-Con M20) 40 meq PO BID [facility] [facility] Stop: 01/21/17 21:01 Last Admin: 01/21/17 21:35 Dose: 40 meq Quetiapine Fumarate (Seroquel) 50 mg PO BEDTIME [facility] Last Admin: 01/20/17 10:53 Dose: Not Given Sodium Chloride (Saline Flush) 10 ml FLUSH ASDIRECTED PRN PRN Reason: Keep Vein Open Last Admin: 01/12/17 22:52 Dose: 10 ml Topiramate (Topamax) 25 mg PO BID [facility] Last Admin: 01/11/17 12:19 Dose: Not Given Trazodone HCl (Trazodone) 50 mg PO BEDTIME PRN PRN Reason: Sleep Last Admin: 01/19/17 20:41 Dose: 50 mg - Exam Quality Assessment: Reports: DVT Prophylaxis General: Reports: Alert, Oriented, Cooperative HEENT: Reports: Pupils Equal, Pupils Reactive, EOMI Neck: Reports: Supple, Trachea Midline Lungs: Reports: Normal Respiratory Effort Cardiovascular: Reports: Regular Rate, Regular Rhythm GI/Abdominal Exam: Normal Bowel Sounds, Soft, Non-Tender, No Organomegaly, No Distention (Female) Exam: Deferred Rectal (Female) Exam: Deferred Back Exam: Reports: Normal Inspection Extremities: Normal Inspection Skin: Reports: Warm Neurological: Reports: No New Focal Deficit Psy/Mental Status: Reports: Alert, Anxious *Q Meaningful Use (DIS) - VTE *Q VTE Criteria *Q: - Stroke *Q Stroke Criteria *Q: - AMI *Q AMI Criteria *Q:
[2017-01-23 15:48] VITALS: BP 105/55
== END 2017-01-23 15:40 | DRG 52 ==
LOC: JD.ED 17:36 → JD.ICU 20:07 → JD.MS 01-19 12:08
PROVIDERS: ADMIT Internal Medicine; ATTEND Internal Medicine
PROC: 02HV33Z Insertion of Infusion Device into Superior Vena Cava, Percutaneous Approach (ICD-10-PCS; principal; 2017-01-16)
DX: G93.41 Metabolic encephalopathy (principal); R41.82 Altered mental status, unspecified; M62.82 Rhabdomyolysis; F10.20 Alcohol dependence, uncomplicated; N39.0 Urinary tract infection, site not specified; B96.20 Unspecified Escherichia coli [E. coli] as the cause of diseases classified elsewhere; F31.89 Other bipolar disorder; D64.9 Anemia, unspecified; D69.6 Thrombocytopenia, unspecified; T50.902A Poisoning by unspecified drugs, medicaments and biological substances, intentional self-harm, initial encounter; E10.65 Type 1 diabetes mellitus with hyperglycemia; Z79.4 Long term (current) use of insulin; E83.42 Hypomagnesemia; I10 Essential (primary) hypertension; J45.909 Unspecified asthma, uncomplicated; K21.9 Gastro-esophageal reflux disease without esophagitis; D50.9 Iron deficiency anemia, unspecified; Z91.81 History of falling; F19.939 Other psychoactive substance use, unspecified with withdrawal, unspecified; E87.0 Hyperosmolality and hypernatremia; E87.6 Hypokalemia; F60.9 Personality disorder, unspecified; R19.7 Diarrhea, unspecified; J69.0 Pneumonitis due to inhalation of food and vomit; J98.11 Atelectasis; Z98.84 Bariatric surgery status; Z88.7 Allergy status to serum and vaccine; Z79.82 Long term (current) use of aspirin; Z79.899 Other long term (current) drug therapy
CPT/HCPCS: 31720; 36415; 36569; 36600; 70450; 70450-26; 70551; 70551-26; 71010; 71010-26; 71020; 71020-26; 72125; 72125-26; 76770; 76770-26; 80048; 80053; 80306; 81001; 82009; 82140; 82330; 82550; 82803; 82962; 83036; 83690; 83735; 83880; 83930; 84100; 85025; 85379; 86140; 87046; 87086; 87088; 87186; 87493; 89055; 92610-GN; 93005; 93306; 94640; 94664; 94667; 94668; 94761; 94762; 95816; 95824; 96361; 96365; 97110-GO; 97110-GP; 97116-GP; 97161-GP; 97165-GO; 97530-GO; 99285; 99285-25; A9270-GY; C1751; C9113; G0480; J0360; J0456; J0696; J1200; J1650; J1815-GY; J1940; J1956; J2060; J2270; J3411; J3475; J3480; J3490; J7030; J7040; J7042; J7050; J7060; J7120; P9612

== ENCOUNTER 2017-05-19 04:45 | Inpatient (IN) | payer BC ==
[2017-05-19] MEDS ORDERED: Sodium Chloride 0.9% 1,000 ML IV SCH ×2 (05:00→11:00)
--- NOTE | 2017-05-19 05:03 | EDM.PDOC ---
ED HPI GENERAL MEDICAL PROBLEM - General Chief Complaint: Drug or Alcohol Abuse Stated Complaint: [facility] Time Seen by Provider: 05/19/17 05:05 Source of Information: Reports: EMS History Limitations: Reports: Other (Patient is obtunded) - History of Present Illness INITIAL COMMENTS - FREE TEXT/NARRATIVE: This is a 52-year-old female. She was brought into the ER by the ambulance because she was found to be unresponsive by her . Apparently she was laying on the floor in their bedroom and the last known time where she was responsive was at 8 PM yesterday evening according to the . When the emesis crew got there there were some pill bottles around there were all empty but we don't know how fully were in the first place. The pill bottles included lorazepam 1 mg fluoxetine 20 mg doxepin 10 mg Lyrica 75 mg and pravastatin. She also is believed to have been drinking some vodka last night. I can get no further history from the patient or the EMS due to the patient's condition. The is not here at this time. She does have a history and her notes of a previous overdose as well as problems with diabetes and elevated blood sugars. A blood sugar was not taken at the scene but here it was above 400. - Related Data Allergies Allergy/AdvReac Type Severity Reaction Status Date / Time Influenza Virus Vaccines Allergy Itching Verified 08/20/16 15:18 pneumococcal vaccine Allergy Redness Verified 08/20/16 15:18 Home Meds: Home Meds Iron 1 tab PO DAILY 07/28/16 [History] Aspirin 81 mg PO DAILY #30 tab.chew 07/31/16 [Rx] Albuterol [Ventolin HFA] 2 puff INH Q4H PRN 01/21/17 [History] Budesonide/Formoterol Fumarate [Symbicort 80-4.5 Mcg Inhaler] 2 puff IH BID [History] Benzocaine/Cetylpyrd/Menthol [Cepacol Sore Throat] 1 lozenge MUCMEM Q2HR PRN # 60 rusty 01/23/17 [Rx] FLUoxetine [PROzac] 20 mg PO DAILY #30 cap 01/23/17 [Rx] Folic Acid 1 mg PO DAILY #30 tablet 01/23/17 [Rx] HCTZ/Triamterene [Maxzide 50-75 MG] 1 each PO DAILY #30 tablet 01/23/17 [Rx] Insulin Detemir [Levemir] 10 unit SUBCUT BID #30 pen 01/23/17 [Rx] Lisinopril [Prinivil] 20 mg PO DAILY #30 tablet 01/23/17 [Rx] Pantoprazole [ProTONIX] 40 mg PO BIDAC #60 tab.cr 01/23/17 [Rx] QUEtiapine [SEROquel] 50 mg PO BEDTIME #30 tablet 01/23/17 [Rx] Temazepam [Restoril] 15 mg PO BEDTIME #30 cap 01/23/17 [Rx] Thiamine [Vitamin B-1] 100 mg PO DAILY #30 tablet 01/23/17 [Rx] Topiramate [Topamax] 25 mg PO BID #60 tablet 01/23/17 [Rx] Past Medical History HEENT History: Reports: Impaired Vision Other HEENT History: wear glasses Cardiovascular History: Reports: Hypertension Respiratory History: Reports: Asthma Gastrointestinal History: Reports: GERD, Pancreatitis Genitourinary History: Reports: UTI, 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: Fibroids, Other (See Below) Other OB/BYN History: hysterectomy with overies intact Musculoskeletal History: Reports: Other (See Below) Other Musculoskeletal History: pt takes lyrica for pain Neurological History: Reports: None Psychiatric History: Reports: Depression Endocrine/Metabolic History: Reports: Diabetes, Type I Other Endocrine/Metabolic History: recent weight gain Hematologic History: Reports: Iron Deficiency Other Oncologic History: colon polups Dermatologic History: Reports: None - Infectious Disease History Infectious Disease History: Reports: Chicken Pox - Past Surgical History Cardiovascular Surgical History: Reports: None GI Surgical History: Reports: Appendectomy, Bariatric Procedure, Cholecystectomy Female Surgical History: Reports: Hysterectomy, Other (See Below) Neurological Surgical History: Reports: None Dermatological Surgical History: Reports: Other (See Below) Social & Family History - Family History Family Medical History: Noncontributory - Tobacco Use Smoking Status *Q: Never Smoker Second Hand Smoke Exposure: No - Caffeine Use Caffeine Use: Reports: None Other Caffeine Use: unknown - Alcohol Use Days Per Week of Alcohol Use: 7 Number of Drinks Per Day: 3 Total Drinks Per Week: 21 - Recreational Drug Use Recreational Drug Use: No Recreational Drug Type: Reports: Other (see below) Other Recreational Drug Type: pt denies, unknown ED ROS GENERAL - Review of Systems Review Of Systems: Unable To Obtain (Patient is obtunded) - Physical Exam Exam: See Below Exam Limited By: Other (Patient is obtunded) General Appearance: Obtunded, Other (GCS = 7, once we get some more information on blood gas all determined at that time whether going to intubate her, her pulse ox even on room air has been 100%) Eye Exam: Bilateral Eye: Other (Pupils are very sluggish, she will open her eyes to painful stimuli, her eyes appear to be very dry) Ears: Normal External Exam, Normal Canal, Normal TMs Nose: Normal Inspection Throat/Mouth: Other (Very dry mucous membranes she does attempt to vocalize at times but is incomprehensible her airway is maintained at this time does not appear to be compromised) Head Exam: Atraumatic, Normocephalic Neck: Supple Respiratory/Chest: No Respiratory Distress, Lungs Clear, Normal Breath Sounds, Other (She does tend to have very deep respirations suggesting maybe coos moles respirations) Cardiovascular: Regular Rate, Rhythm, No Murmur, Tachycardia GI/Abdominal: Soft, Other (He does not appear to have any tenderness or flinching when I push deep into her abdomen no organomegaly noted) Neuro Exam (Abbreviated): Unresponsive Back Exam: Normal Inspection Extremities: Other (She will move her upper extremities and she does straighten her lower extremities when we roll her, but this is not purposeful movement, she does have an abnormal withdrawal to pain when I cause painful stimuli to her hands and fingers) Psychiatric: Other (Patient is unresponsive) Skin Exam: Other (Scan especially in the hands and feet is cool her central body skin temperature appears to be tepid) EKG INTERPRETATION EKG Interpretation Comments: EKG shows a sinus tachycardia there are no acute ST or T-wave changes noted there is no ischemia noted Course - Vital Signs Last Recorded V/S: Last Vital Signs Temp 96.6 F 05/19/17 04:58 Pulse 99 05/19/17 04:58 Resp 18 05/19/17 04:58 BP 117/87 05/19/17 04:58 Pulse Ox 100 05/19/17 04:58 - Orders/Labs/Meds Orders: Active Orders 24 hr Category Date Time Status EKG 12 Lead [EKG Documentation Completion] [RC] STAT Care 05/19/17 04:54 Active CXR [Chest 1V Frontal] [CR] Stat Exams 05/19/17 04:52 Taken Head wo Cont [CT] Stat Exams 05/19/17 04:57 Taken CULTURE BLOOD [BC] Stat Lab 05/19/17 07:45 Received CULTURE BLOOD [BC] Stat Lab 05/19/17 08:13 Received Insulin Regular, Human [HumuLIN R] 100 unit Med 05/19/17 07:30 Active Sodium Chloride 0.9% [Normal Saline] 99 ml IV TITRATE Sodium Chloride 0.9% [Normal Saline] 1,000 ml Med 05/19/17 05:00 Active IV ASDIRECTED Sodium Chloride 0.9% [Normal Saline] 1,000 ml Med 05/19/17 08:36 Active IV ONETIME Sodium Chloride 0.9% [Normal Saline] 1,000 ml Med 05/19/17 08:38 Active IV ONETIME Blood Culture x2 Reflex Set [OM.PC] Stat Oth 05/19/17 06:25 Ordered Medication Orders Sodium Chloride (Normal Saline) 1,000 mls @ 1,000 mls/hr IV ASDIRECTED MAGO Last Admin: 05/19/17 06:13 Dose: 1,000 mls/hr Insulin Human Regular 100 unit (/ Sodium Chloride) 100 mls @ 7.71 mls/hr IV TITRATE MAGO; 0.1 UNITS/KG/HR PRN Reason: Protocol Last Admin: 05/19/17 08:27 Dose: 0.03 units/kg/hr, 3 mls/hr Sodium Chloride (Normal Saline) 1,000 mls @ 999 mls/hr IV ONETIME ONE Stop: 05/19/17 09:36 Last Admin: 05/19/17 08:39 Dose: 999 mls/hr Sodium Chloride (Normal Saline) 1,000 mls @ 500 mls/hr IV ONETIME ONE Stop: 05/19/17 10:37 Last Admin: 05/19/17 08:39 Dose: 500 mls/hr Labs: Laboratory Tests 05/19/17 05/19/17 05/19/17 Range/Units 04:52 04:52 04:54 WBC (3.98-10.04) K/mm3 RBC (3.98-5.22) M/mm3 Hgb (11.2-15.7) gm/L Hct (34.1-44.9) % MCV (79.4-94.8) fl MCH (25.6-32.2) pg MCHC (32.2-35.5) g/dl RDW Std Deviation (36.4-46.3) fL Plt Count (182-369) K/mm3 MPV (9.4-12.3) fl Neut % (Auto) (34.0-71.1) % Lymph % (Auto) (19.3-51.7) % [place] % (Auto) (4.7-12.5) % Eos % (Auto) (0.7-5.8) Baso % (Auto) (0.1-1.2) % Neut # (Auto) (1.56-6.13) K/mm3 Lymph # (Auto) (1.18-3.74) K/mm3 [place] # (Auto) (0.24-0.36) K/mm3 Eos # (Auto) (0.04-0.36) K/mm3 Baso # (Auto) (0.01-0.08) K/mm3 Puncture Site Lt radial ABG pH 7.18 L* (7.35-7.45) ABG pCO2 31.3 L (35.0-45.0) mmHg ABG pO2 99.0 (80.0-100.0) mmHg ABG HCO3 11.3 L (22.0-26.0) meq/L ABG O2 Saturation 95.4 L (96.0-97.0) % ABG Base Excess -15.8 L (-2-2.0) O2 Delivery Device Room air FiO2 21.00 (21.00-100.00) % Sodium (136-145) mEq/L Potassium (3.5-5.1) mEq/L Chloride (98-107) mEq/L Carbon Dioxide (21-32) mEq/L Anion Gap (5-15) BUN (7-18) mg/dL Creatinine (0.55-1.02) mg/dL Est Cr Clr Drug Dosing Estimated GFR (MDRD) (>60) mL/min BUN/Creatinine Ratio (14-18) Glucose (74-106) mg/dL POC Glucose (70-105) mg/dL Lactic Acid (0.4-2.0) mmol/L Calcium (8.5-10.1) mg/dL Magnesium (1.8-2.4) mg/dl Total Bilirubin (0.2-1.0) mg/dL AST (15-37) U/L ALT (14-59) U/L Alkaline Phosphatase (46-116) U/L Creatine Kinase (26-192) U/L Troponin I (0.00-0.056) ng/mL Total Protein (6.4-8.2) g/dl Albumin (3.4-5.0) g/dl Globulin gm/dL Albumin/Globulin Ratio (1-2) HCG, Qual (NEGATIVE) Urine Color Yellow (Yellow) Urine Appearance Slt cloudy H (Clear) Urine pH 5.0 (5.0-8.0) Ur Specific [place] 1.010 (1.005-1.030) Urine Protein 2+ H (Negative) Urine Glucose (UA) 2+ H (Negative) Urine Ketones Negative (Negative) Urine Occult Blood 2+ H (Negative) Urine Nitrite Negative (Negative) Urine Bilirubin Negative (Negative) Urine Urobilinogen 0.2 (0.2-1.0) Ur Leukocyte Esterase Negative (Negative) Urine RBC 0-5 (0-5) /hpf Urine WBC 0-5 (0-5) /hpf Ur Epithelial Cells 0-5 (0-5) /hpf Urine Bacteria Many H (FEW) /hpf Urine Mucus Not seen (FEW) /hpf Urine Opiates Screen Negative (NEGATIVE) Ur Buprenorphine Scrn Negative (NEGATIVE) Ur Oxycodone Screen Negative (NEGATIVE) Urine Methadone Screen Negative (NEGATIVE) Ur Propoxyphene Screen Negative (NEGATIVE) Ur Barbiturates Screen Negative (NEGATIVE) Ur Tricyclics Screen Presumptive positive H (NEGATIVE) Ur Phencyclidine Scrn Negative (NEGATIVE) Ur Amphetamine Screen Negative (NEGATIVE) U Methamphetamines Scrn Negative (NEGATIVE) U Benzodiazepines Scrn Negative (NEGATIVE) U Cocaine Metab Screen Negative (NEGATIVE) U Marijuana (THC) Screen Negative (NEGATIVE) Ethyl Alcohol (0.00) gm% Ketones (0.0-0.3) mM 05/19/17 05/19/17 05/19/17 Range/Units 05:13 05:13 05:13 WBC 3.12 L (3.98-10.04) K/mm3 RBC 3.91 L (3.98-5.22) M/mm3 Hgb 12.8 (11.2-15.7) gm/L Hct 37.3 (34.1-44.9) % MCV 95.4 H (79.4-94.8) fl MCH 32.7 H (25.6-32.2) pg MCHC 34.3 (32.2-35.5) g/dl RDW Std Deviation 45.7 (36.4-46.3) fL Plt Count 123 L (182-369) K/mm3 MPV 9.6 (9.4-12.3) fl Neut % (Auto) 78.6 H (34.0-71.1) % Lymph % (Auto) 17.0 L (19.3-51.7) % [place] % (Auto) 3.5 L (4.7-12.5) % Eos % (Auto) 0.3 L (0.7-5.8) Baso % (Auto) 0.3 (0.1-1.2) % Neut # (Auto) 2.45 (1.56-6.13) K/mm3 Lymph # (Auto) 0.53 L (1.18-3.74) K/mm3 [place] # (Auto) 0.11 L (0.24-0.36) K/mm3 Eos # (Auto) 0.01 L (0.04-0.36) K/mm3 Baso # (Auto) 0.01 (0.01-0.08) K/mm3 Puncture Site ABG pH (7.35-7.45) ABG pCO2 (35.0-45.0) mmHg ABG pO2 (80.0-100.0) mmHg ABG HCO3 (22.0-26.0) meq/L ABG O2 Saturation (96.0-97.0) % ABG Base Excess (-2-2.0) O2 Delivery Device FiO2 (21.00-100.00) % Sodium 134 L (136-145) mEq/L Potassium 4.1 (3.5-5.1) mEq/L Chloride 98 (98-107) mEq/L Carbon Dioxide 15 L (21-32) mEq/L Anion Gap 25.1 H (5-15) BUN 23 H (7-18) mg/dL Creatinine 2.0 H (0.55-1.02) mg/dL Est Cr Clr Drug Dosing TNP Estimated GFR (MDRD) 26 (>60) mL/min BUN/Creatinine Ratio 11.5 L (14-18) Glucose 570 H* (74-106) mg/dL POC Glucose (70-105) mg/dL Lactic Acid 8.1 H (0.4-2.0) mmol/L Calcium 8.5 (8.5-10.1) mg/dL Magnesium 1.4 L (1.8-2.4) mg/dl Total Bilirubin 0.4 (0.2-1.0) mg/dL AST 27 (15-37) U/L ALT 33 (14-59) U/L Alkaline Phosphatase 82 (46-116) U/L Creatine Kinase 625 H (26-192) U/L Troponin I < 0.017 (0.00-0.056) ng/mL Total Protein 7.1 (6.4-8.2) g/dl Albumin 3.6 (3.4-5.0) g/dl Globulin 3.5 gm/dL Albumin/Globulin Ratio 1.0 (1-2) HCG, Qual (NEGATIVE) Urine Color (Yellow) Urine Appearance (Clear) Urine pH (5.0-8.0) Ur Specific [place] (1.005-1.030) Urine Protein (Negative) Urine Glucose (UA) (Negative) Urine Ketones (Negative) Urine Occult Blood (Negative) Urine Nitrite (Negative) Urine Bilirubin (Negative) Urine Urobilinogen (0.2-1.0) Ur Leukocyte Esterase (Negative) Urine RBC (0-5) /hpf Urine WBC (0-5) /hpf Ur Epithelial Cells (0-5) /hpf Urine Bacteria (FEW) /hpf Urine Mucus (FEW) /hpf Urine Opiates Screen (NEGATIVE) Ur Buprenorphine Scrn (NEGATIVE) Ur Oxycodone Screen (NEGATIVE) Urine Methadone Screen (NEGATIVE) Ur Propoxyphene Screen (NEGATIVE) Ur Barbiturates Screen (NEGATIVE) Ur Tricyclics Screen (NEGATIVE) Ur Phencyclidine Scrn (NEGATIVE) Ur Amphetamine Screen (NEGATIVE) U Methamphetamines Scrn (NEGATIVE) U Benzodiazepines Scrn (NEGATIVE) U Cocaine Metab Screen (NEGATIVE) U Marijuana (THC) Screen (NEGATIVE) Ethyl Alcohol 0.15 (0.00) gm% Ketones (0.0-0.3) mM 05/19/17 05/19/17 05/19/17 Range/Units 05:13 05:13 07:22 WBC (3.98-10.04) K/mm3 RBC (3.98-5.22) M/mm3 Hgb (11.2-15.7) gm/L Hct (34.1-44.9) % MCV (79.4-94.8) fl MCH (25.6-32.2) pg MCHC (32.2-35.5) g/dl RDW Std Deviation (36.4-46.3) fL Plt Count (182-369) K/mm3 MPV (9.4-12.3) fl Neut % (Auto) (34.0-71.1) % Lymph % (Auto) (19.3-51.7) % [place] % (Auto) (4.7-12.5) % Eos % (Auto) (0.7-5.8) Baso % (Auto) (0.1-1.2) % Neut # (Auto) (1.56-6.13) K/mm3 Lymph # (Auto) (1.18-3.74) K/mm3 [place] # (Auto) (0.24-0.36) K/mm3 Eos # (Auto) (0.04-0.36) K/mm3 Baso # (Auto) (0.01-0.08) K/mm3 Puncture Site ABG pH (7.35-7.45) ABG pCO2 (35.0-45.0) mmHg ABG pO2 (80.0-100.0) mmHg ABG HCO3 (22.0-26.0) meq/L ABG O2 Saturation (96.0-97.0) % ABG Base Excess (-2-2.0) O2 Delivery Device FiO2 (21.00-100.00) % Sodium (136-145) mEq/L Potassium (3.5-5.1) mEq/L Chloride (98-107) mEq/L Carbon Dioxide (21-32) mEq/L Anion Gap (5-15) BUN (7-18) mg/dL Creatinine (0.55-1.02) mg/dL Est Cr Clr Drug Dosing Estimated GFR (MDRD) (>60) mL/min BUN/Creatinine Ratio (14-18) Glucose (74-106) mg/dL POC Glucose 391 H (70-105) mg/dL Lactic Acid (0.4-2.0) mmol/L Calcium (8.5-10.1) mg/dL Magnesium (1.8-2.4) mg/dl Total Bilirubin (0.2-1.0) mg/dL AST (15-37) U/L ALT (14-59) U/L Alkaline Phosphatase (46-116) U/L Creatine Kinase (26-192) U/L Troponin I (0.00-0.056) ng/mL Total Protein (6.4-8.2) g/dl Albumin (3.4-5.0) g/dl Globulin gm/dL Albumin/Globulin Ratio (1-2) HCG, Qual Negative (NEGATIVE) Urine Color (Yellow) Urine Appearance (Clear) Urine pH (5.0-8.0) Ur Specific [place] (1.005-1.030) Urine Protein (Negative) Urine Glucose (UA) (Negative) Urine Ketones (Negative) Urine Occult Blood (Negative) Urine Nitrite (Negative) Urine Bilirubin (Negative) Urine Urobilinogen (0.2-1.0) Ur Leukocyte Esterase (Negative) Urine RBC (0-5) /hpf Urine WBC (0-5) /hpf Ur Epithelial Cells (0-5) /hpf Urine Bacteria (FEW) /hpf Urine Mucus (FEW) /hpf Urine Opiates Screen (NEGATIVE) Ur Buprenorphine Scrn (NEGATIVE) Ur Oxycodone Screen (NEGATIVE) Urine Methadone Screen (NEGATIVE) Ur Propoxyphene Screen (NEGATIVE) Ur Barbiturates Screen (NEGATIVE) Ur Tricyclics Screen (NEGATIVE) Ur Phencyclidine Scrn (NEGATIVE) Ur Amphetamine Screen (NEGATIVE) U Methamphetamines Scrn (NEGATIVE) U Benzodiazepines Scrn (NEGATIVE) U Cocaine Metab Screen (NEGATIVE) U Marijuana (THC) Screen (NEGATIVE) Ethyl Alcohol (0.00) gm% Ketones 1.11 (0.0-0.3) mM 05/19/17 Range/Units 08:12 WBC (3.98-10.04) K/mm3 RBC (3.98-5.22) M/mm3 Hgb (11.2-15.7) gm/L Hct (34.1-44.9) % MCV (79.4-94.8) fl MCH (25.6-32.2) pg MCHC (32.2-35.5) g/dl RDW Std Deviation (36.4-46.3) fL Plt Count (182-369) K/mm3 MPV (9.4-12.3) fl Neut % (Auto) (34.0-71.1) % Lymph % (Auto) (19.3-51.7) % [place] % (Auto) (4.7-12.5) % Eos % (Auto) (0.7-5.8) Baso % (Auto) (0.1-1.2) % Neut # (Auto) (1.56-6.13) K/mm3 Lymph # (Auto) (1.18-3.74) K/mm3 [place] # (Auto) (0.24-0.36) K/mm3 Eos # (Auto) (0.04-0.36) K/mm3 Baso # (Auto) (0.01-0.08) K/mm3 Puncture Site ABG pH (7.35-7.45) ABG pCO2 (35.0-45.0) mmHg ABG pO2 (80.0-100.0) mmHg ABG HCO3 (22.0-26.0) meq/L ABG O2 Saturation (96.0-97.0) % ABG Base Excess (-2-2.0) O2 Delivery Device FiO2 (21.00-100.00) % Sodium (136-145) mEq/L Potassium (3.5-5.1) mEq/L Chloride (98-107) mEq/L Carbon Dioxide (21-32) mEq/L Anion Gap (5-15) BUN (7-18) mg/dL Creatinine (0.55-1.02) mg/dL Est Cr Clr Drug Dosing Estimated GFR (MDRD) (>60) mL/min BUN/Creatinine Ratio (14-18) Glucose (74-106) mg/dL POC Glucose 338 H (70-105) mg/dL Lactic Acid (0.4-2.0) mmol/L Calcium (8.5-10.1) mg/dL Magnesium (1.8-2.4) mg/dl Total Bilirubin (0.2-1.0) mg/dL AST (15-37) U/L ALT (14-59) U/L Alkaline Phosphatase (46-116) U/L Creatine Kinase (26-192) U/L Troponin I (0.00-0.056) ng/mL Total Protein (6.4-8.2) g/dl Albumin (3.4-5.0) g/dl Globulin gm/dL Albumin/Globulin Ratio (1-2) HCG, Qual (NEGATIVE) Urine Color (Yellow) Urine Appearance (Clear) Urine pH (5.0-8.0) Ur Specific [place] (1.005-1.030) Urine Protein (Negative) Urine Glucose (UA) (Negative) Urine Ketones (Negative) Urine Occult Blood (Negative) Urine Nitrite (Negative) Urine Bilirubin (Negative) Urine Urobilinogen (0.2-1.0) Ur Leukocyte Esterase (Negative) Urine RBC (0-5) /hpf Urine WBC (0-5) /hpf Ur Epithelial Cells (0-5) /hpf Urine Bacteria (FEW) /hpf Urine Mucus (FEW) /hpf Urine Opiates Screen (NEGATIVE) Ur Buprenorphine Scrn (NEGATIVE) Ur Oxycodone Screen (NEGATIVE) Urine Methadone Screen (NEGATIVE) Ur Propoxyphene Screen (NEGATIVE) Ur Barbiturates Screen (NEGATIVE) Ur Tricyclics Screen (NEGATIVE) Ur Phencyclidine Scrn (NEGATIVE) Ur Amphetamine Screen (NEGATIVE) U Methamphetamines Scrn (NEGATIVE) U Benzodiazepines Scrn (NEGATIVE) U Cocaine Metab Screen (NEGATIVE) U Marijuana (THC) Screen (NEGATIVE) Ethyl Alcohol (0.00) gm% Ketones (0.0-0.3) mM Meds: Medications Generic Name Dose Route Start Last Admin Trade Name Freq PRN Reason Stop Dose Admin Sodium Chloride 1,000 mls @ 1,000 mls/hr 05/19/17 05:00 05/19/17 06:13 Normal Saline IV 1,000 mls/hr ASDIRECTED MAGO Administration Insulin Human Regular 100 unit 100 mls @ 7.71 mls/hr 05/19/17 07:30 05/19/17 08:27 / Sodium Chloride IV 0.03 units/kg/hr TITRATE MAGO 3 mls/hr Protocol Administration 0.1 UNITS/KG/HR Sodium Chloride 1,000 mls @ 999 mls/hr 05/19/17 08:36 05/19/17 08:39 Normal Saline IV 05/19/17 09:36 999 mls/hr ONETIME ONE Administration Sodium Chloride 1,000 mls @ 500 mls/hr 05/19/17 08:38 05/19/17 08:39 Normal Saline IV 05/19/17 10:37 500 mls/hr ONETIME ONE Administration Discontinued Medications Generic Name Dose Route Start Last Admin Trade Name Fabio PRN Reason Stop Dose Admin Sodium Chloride 1,000 mls @ 999 mls/hr 05/19/17 06:14 05/19/17 06:15 Normal Saline IV 05/19/17 07:14 999 mls/hr ONETIME ONE Administration Sodium Chloride 1,000 mls @ 999 mls/hr 05/19/17 06:14 05/19/17 04:57 Normal Saline IV 05/19/17 07:14 999 mls/hr ONETIME ONE Administration Sodium Chloride 1,000 mls @ 999 mls/hr 05/19/17 06:14 05/19/17 06:16 Normal Saline IV 05/19/17 07:14 Not Given ONETIME ONE Insulin Human Regular 10 unit 05/19/17 06:00 05/19/17 06:07 Humulin R IV 05/19/17 06:01 10 unit ONETIME ONE Administration - Radiology Interpretation Free Text/Narrative:: CT of the head does not show any acute findings. Chest x-ray shows some faint possible consolidative findings or could just be positional but no definite infiltrates. - Re-Assessments/Exams Free Text/Narrative Re-Assessment/Exam: 05/19/17 05:10 Blood gas on upon arrival shows a pH of 7.18 CO2 of 31 and O2 of 99 05/19/17 07:20 I called the nurse ladies underwear operator to come and intubate the patient because she continues to be unresponsive despite the time and her careful monitoring of her. As soon as the nurse ladies underwear operator arrived and started evaluating the patient the patient woke up and told her that she was cold. I go in and evaluate the patient in that she is fully awake and talking and she notes she is in the ER. Her blood sugar despite the 10 units of insulin is still over 400 by Accu-Chek and we will start an insulin drip on her. 02/11/18 08:40 The patient's arrived to the ER I spoke to him regarding the patient's condition. I also told the patient she will be admitted to the hospital to the ICU for control of her diabetes. I did speak to Dr. Moser regarding the patient and she'll place her in the ICU for further evaluation and treatment. Departure - Departure Time of Disposition: 08:41 Disposition: Admitted As Inpatient 65 Condition: Poor Clinical Impression: Severe dehydration, Unresponsive episode Diabetic ketoacidosis associated with type 1 diabetes mellitus Qualifiers: Diabetes mellitus complication detail: with coma Qualified Code(s): E10.11 - Type 1 diabetes mellitus with ketoacidosis with coma Alcohol intoxication Qualifiers: Complication of substance-induced condition: uncomplicated Qualified Code(s): F10.920 - Alcohol use, unspecified with intoxication, uncomplicated Rhabdomyolysis Qualifiers: Rhabdomyolysis type: non-traumatic Qualified Code(s): M62.82 - Rhabdomyolysis - Discharge Information Additional Instructions: I spoke to Dr. Moser and she will admit the patient to the ICU for further evaluation and treatment ED Communication - ED Communication Date/Time Date: 05/19/17 Time Called: 08:44 - Discussed Case With (1) Discussed Case With (1): Admitting Provider Person/s Notified (1): Myra Moser - Conversation Summary Summary Comment: I spoke with Dr. Moser and she'll admit the patient to the ICU for further evaluation and treatment - My Orders Last 24 Hours: My Active Orders 05/19/17 04:52 CXR [Chest 1V Frontal] [CR] Stat 05/19/17 04:54 EKG 12 Lead [EKG Documentation Completion] [RC] STAT 05/19/17 04:57 Head wo Cont [CT] Stat 05/19/17 05:00 Sodium Chloride 0.9% [Normal Saline] 1,000 ml IV ASDIRECTED 05/19/17 06:25 Blood Culture x2 Reflex Set [OM.PC] Stat 05/19/17 07:30 Insulin Regular, Human [HumuLIN R] 100 unit Sodium Chloride 0.9% [Normal Saline] 99 ml IV TITRATE 05/19/17 07:45 CULTURE BLOOD [BC] Stat 05/19/17 08:13 CULTURE BLOOD [BC] Stat 05/19/17 08:36 Sodium Chloride 0.9% [Normal Saline] 1,000 ml IV ONETIME 05/19/17 08:38 Sodium Chloride 0.9% [Normal Saline] 1,000 ml IV ONETIME - Assessment/Plan Last 24 Hours: My Active Orders 05/19/17 04:52 CXR [Chest 1V Frontal] [CR] Stat 05/19/17 04:54 EKG 12 Lead [EKG Documentation Completion] [RC] STAT 05/19/17 04:57 Head wo Cont [CT] Stat 05/19/17 05:00 Sodium Chloride 0.9% [Normal Saline] 1,000 ml IV ASDIRECTED 05/19/17 06:25 Blood Culture x2 Reflex Set [OM.PC] Stat 05/19/17 07:30 Insulin Regular, Human [HumuLIN R] 100 unit Sodium Chloride 0.9% [Normal Saline] 99 ml IV TITRATE 05/19/17 07:45 CULTURE BLOOD [BC] Stat 05/19/17 08:13 CULTURE BLOOD [BC] Stat 05/19/17 08:36 Sodium Chloride 0.9% [Normal Saline] 1,000 ml IV ONETIME 05/19/17 08:38 Sodium Chloride 0.9% [Normal Saline] 1,000 ml IV ONETIME
[2017-05-19] MEDS ORDERED: Insulin Regular, Human 100 Units/ML 3 ML Vial IV ONE (06:00)
[2017-05-19] MEDS ORDERED: Sodium Chloride 0.9% 1,000 ML IV ONE ×5 (06:14→08:38)
--- NOTE | 2017-05-19 10:59 | PCM.HP ---
H&P History of Present Illness - General Date of Service: 05/19/17 Source of Information: Provider History Limitations: Reports: No Limitations - History of Present Illness Initial Comments - Free Text/Narative: 52 year old female presented with a GCS 7, was found to have an AG 25; glucose 570; CK 625; lactic acid 8.1; BUN/Cr 23/2.0; Mg 1.4; MELANI 0.15. An ABG was done on arrival that documented a pH 7.18, CO2 31, O2 99. The original decision to intubated was cancelled after she began to respond to treatment of IVF, hydration and insulin. She was found by her with multiple empty bottles of prescription drugs. She had a similar episode in January 2017 when she called one of her children and subsequently took several of her prescriptions at one time mixed with alcohol. She was discharged for psychiatric treatment as well as substance abuse treatment. She will be admitted to the ICU for DKA and alcohol withdrawal. Onset of Symptoms: Reports: Unknown/Unsure Symptom Onset Date: 05/19/17 Duration of Symptoms: Reports: Hour(s):, Getting Worse Location: Reports: Generalized Quality: Reports: Same as Previous Episode Severity: Moderate Improves with: Reports: Medication Worsens with: Reports: None Associated Symptoms: Reports: Confusion, Weakness - Related Data Allergies/Adverse Reactions: Allergies Allergy/AdvReac Type Severity Reaction Status Date / Time Influenza Virus Vaccines Allergy Itching Verified 08/20/16 15:18 pneumococcal vaccine Allergy Redness Verified 08/20/16 15:18 Home Medications: Home Meds Iron 1 tab PO DAILY 07/28/16 [History] Aspirin 81 mg PO DAILY #30 tab.chew 07/31/16 [Rx] Albuterol [Ventolin HFA] 2 puff INH Q4H PRN 01/21/17 [History] Budesonide/Formoterol Fumarate [Symbicort 80-4.5 Mcg Inhaler] 2 puff IH BID [History] Benzocaine/Cetylpyrd/Menthol [Cepacol Sore Throat] 1 lozenge MUCMEM Q2HR PRN # 60 rusty 01/23/17 [Rx] FLUoxetine [PROzac] 20 mg PO DAILY #30 cap 01/23/17 [Rx] Folic Acid 1 mg PO DAILY #30 tablet 01/23/17 [Rx] HCTZ/Triamterene [Maxzide 50-75 MG] 1 each PO DAILY #30 tablet 01/23/17 [Rx] Insulin Detemir [Levemir] 10 unit SUBCUT BID #30 pen 01/23/17 [Rx] Lisinopril [Prinivil] 20 mg PO DAILY #30 tablet 01/23/17 [Rx] Pantoprazole [ProTONIX] 40 mg PO BIDAC #60 tab.cr 01/23/17 [Rx] QUEtiapine [SEROquel] 50 mg PO BEDTIME #30 tablet 01/23/17 [Rx] Temazepam [Restoril] 15 mg PO BEDTIME #30 cap 01/23/17 [Rx] Thiamine [Vitamin B-1] 100 mg PO DAILY #30 tablet 01/23/17 [Rx] Topiramate [Topamax] 25 mg PO BID #60 tablet 01/23/17 [Rx] Past Medical History HEENT History: Reports: Impaired Vision Other HEENT History: wear glasses Cardiovascular History: Reports: Hypertension Respiratory History: Reports: Asthma Gastrointestinal History: Reports: GERD, Pancreatitis Genitourinary History: Reports: UTI, Recurrent [employer] History: Reports: Fibroids, Other (See Below) Other OB/BYN History: hysterectomy with overies intact Musculoskeletal History: Reports: Other (See Below) Other Musculoskeletal History: pt takes lyrica for pain Neurological History: Reports: None Psychiatric History: Reports: Depression Endocrine/Metabolic History: Reports: Diabetes, Type I Other Endocrine/Metabolic History: recent weight gain Hematologic History: Reports: Iron Deficiency Other Oncologic History: colon polups Dermatologic History: Reports: None - Infectious Disease History Infectious Disease History: Reports: Chicken Pox - Past Surgical History Cardiovascular Surgical History: Reports: None GI Surgical History: Reports: Appendectomy, Bariatric Procedure, Cholecystectomy Female Surgical History: Reports: Hysterectomy, Other (See Below) Neurological Surgical History: Reports: None Dermatological Surgical History: Reports: Other (See Below) Social & Family History - Family History Family Medical History: Noncontributory - Tobacco Use Smoking Status *Q: Never Smoker Second Hand Smoke Exposure: No - Caffeine Use Caffeine Use: Reports: None Other Caffeine Use: unknown - Alcohol Use Days Per Week of Alcohol Use: 7 Number of Drinks Per Day: 3 Total Drinks Per Week: 21 - Recreational Drug Use Recreational Drug Use: No Recreational Drug Type: Reports: Other (see below) Other Recreational Drug Type: pt denies, unknown H&P Review of Systems - Review of Systems: Review Of Systems: Unable To Obtain Exam - Exam Exam: See Below - Vital Signs Vital Signs: Last Vital Signs Temp 35.9 C 05/19/17 04:58 Pulse 101 H 05/19/17 10:08 Resp 16 05/19/17 10:08 BP 156/86 H 05/19/17 10:08 Pulse Ox 95 05/19/17 10:08 Weight: 77.111 kg - Exam Quality Assessment: Supplemental Oxygen, DVT Prophylaxis General: Lethargic HEENT: Pupils Equal, Pupils Reactive Neck: Trachea Midline Lungs: Normal Respiratory Effort, Decreased Breath Sounds Cardiovascular: Regular Rate, Regular Rhythm GI/Abdominal Exam: Normal Bowel Sounds, Soft, Non-Tender, No Organomegaly, No Distention (Female) Exam: Deferred Rectal (Female) Exam: Deferred Back Exam: Normal Inspection Extremities: Normal Inspection, Non-Tender, No Pedal Edema Skin: Warm Neurological: Cranial Nerves Intact Neuro Extensive - Motor, Sensory, Reflexes: CN II-XII Intact Psychiatric: Other (lethargic) - Patient Data Lab Results Last 24 hrs: Laboratory Results - last 24 hr 05/19/17 Range/Units 10:36 POC Glucose 232 H (70-105) mg/dL Result Diagrams: 05/19/17 05:13 05/19/17 15:49 *Q Meaningful Use (ADM) - VTE *Q VTE Criteria *Q: - Stroke *Q Stroke Criteria *Q: - AMI *Q AMI Criteria *Q: Problem List Initiated/Reviewed/Updated: Yes Orders Last 24hrs: Active Orders 24 hr Category Date Time Status Sodium Chloride 0.9% [Normal Saline] 1,000 ml Med 05/19/17 11:00 Active IV ASDIRECTED Medication Orders Sodium Chloride (Normal Saline) 1,000 mls @ 1,000 mls/hr IV ASDIRECTED MAGO Last Admin: 05/19/17 06:13 Dose: 1,000 mls/hr Insulin Human Regular 100 unit (/ Sodium Chloride) 100 mls @ 7.71 mls/hr IV TITRATE MAGO; 0.1 UNITS/KG/HR PRN Reason: Protocol Last Titration: 05/19/17 10:56 Dose: 0.03 units/kg/hr, 2.5 mls/hr Titration: 05/19/17 09:30 Dose: 0.03 units/kg/hr, 3 mls/hr Admin: 05/19/17 08:27 Dose: 0.03 units/kg/hr, 3 mls/hr Sodium Chloride (Normal Saline) 1,000 mls @ 150 mls/hr IV ASDIRECTED MAGO Last Admin: 05/19/17 10:57 Dose: 150 mls/hr Assessment/Plan Comment:: Impression: DKA with history of DM type I AMS, improving JEFF ETOH dependence/abuse (21 drinks per week, drinks daily); MELANI 0.15 CIWA ~7 Query suicide gesture, prescription bottles were empty Depression/Anxiety--recent treatment Fall 2016 Chronic HTN Pancreatitis GERD Plan: DKA protocol CIWA protocol Psych consult SA consult Daily labs Home meds GI/DVT prophylaxis
[2017-05-19] MEDS ORDERED: Lactated Ringers 1,000 ML IV SCH (11:00)
[2017-05-19] MEDS ORDERED: Magnesium Sulfate/Water 4 GM in Premix Bag 1 BAG IV ONE (12:42)
[2017-05-19] MEDS: Sodium Chloride 0.9% 1,000 ML IV SCH ×2 (13:05→14:28)
[2017-05-19] MEDS: Magnesium Sulfate/Water 2 GM in Premix Bag 1 BAG IV SCH ×2 (13:15→14:31)
[2017-05-19] MEDS ORDERED: Metoprolol Tartrate 5 MG/5 ML SDV IVPUSH PRN (13:29)
[2017-05-19] MEDS ORDERED: Haloperidol Lactate 5 MG/ML SDV IVPUSH PRN (13:31)
[2017-05-19] MEDS: Pantoprazole 40 MG Tab.CR PO SCH (16:27)
--- NOTE | 2017-05-19 17:46 | CT ---
Head CT Technique: Multiple axial sections through the brain were obtained. Intravenous contrast was not utilized. Comparison: Prior head CT study of 01/16/17. Prior MRI brain of 01/16/17 is also available. Findings: Ventricles along with basal cisterns and sulci over convexities are within normal limits for the patient's age. No abnormal parenchymal densities are seen. No evidence of intracranial hemorrhage. No midline shift or mass effect is seen. Minimal mucosal thickening is seen within the left ethmoid sinus which is incidental. No acute calvarial abnormality is appreciated. Impression: 1. Sinus finding which is incidental. Nothing acute is seen on noncontrast head CT exam. No significant change from previous study is seen. Diagnostic code #2 I agree with preliminary report issued by [facility] ([facility] preliminary report dictated on 05/19/17, 6:42 AM Central Time)
--- NOTE | 2017-05-19 17:46 | CR ---
Chest: Portable view of the chest was obtained. Comparison: Prior chest x-ray of 01/16/17. Heart size and mediastinum are normal. Lungs are clear. Bony structures are grossly intact. Surgical clips are seen within the upper left abdomen. Impression: 1. Nothing acute is identified on portable chest x-ray. Diagnostic code #2
[2017-05-19] MEDS: chlordiazePOXIDE 25 MG Cap PO SCH ×2 (18:19→20:44)
[2017-05-19] MEDS: QUEtiapine 25 MG Tab PO SCH (20:44)
[2017-05-19] MEDS: Topiramate 25 MG Tab PO SCH (20:44)
[2017-05-19] MEDS: Metoprolol Tartrate 25 MG Tab PO SCH (20:44)
[2017-05-19] MEDS: cloNIDine 0.1 MG Tab PO SCH (20:55)
[2017-05-19] MEDS: Budesonide/Formoterol 80-4.5 MCG/Puff 6.9 GM Inhaler INH SCH (21:37)
[2017-05-19] MEDS: Dextrose 5%-0.9% NaCl 1,000 ML IV SCH (21:39)
[2017-05-20] MEDS: Dextrose 5%-0.9% NaCl 1,000 ML IV SCH (05:24)
[2017-05-20] MEDS: cloNIDine 0.1 MG Tab PO SCH ×3 (05:24→20:09)
[2017-05-20] MEDS: Pantoprazole 40 MG Tab.CR PO SCH ×2 (05:24→15:14)
[2017-05-20] MEDS: Insulin Detemir 100 Units/ML 3 ML Pen SUBCUT SCH ×3 (07:44→20:08)
[2017-05-20] MEDS: Aspirin 81 MG Tab.Chew PO SCH (08:14)
[2017-05-20] MEDS: Folic Acid 1 MG Tab PO SCH (08:14)
[2017-05-20] MEDS: chlordiazePOXIDE 25 MG Cap PO SCH ×2 (08:15→20:09)
[2017-05-20] MEDS: Metoprolol Tartrate 25 MG Tab PO SCH ×2 (08:15→20:09)
[2017-05-20] MEDS: Ferrous Sulfate 140 MG Tab PO SCH (08:16)
[2017-05-20] MEDS: Thiamine 100 MG Tab PO SCH (08:16)
[2017-05-20] MEDS: FLUoxetine 20 MG Cap PO SCH (08:16)
[2017-05-20] MEDS: Topiramate 25 MG Tab PO SCH ×2 (08:17→20:09)
[2017-05-20] MEDS ORDERED: Lactated Ringers 1,000 ML IV SCH (10:15)
[2017-05-20] MEDS: Budesonide/Formoterol 80-4.5 MCG/Puff 6.9 GM Inhaler INH SCH ×2 (10:21→20:20)
[2017-05-20] MEDS ORDERED: Potassium Chloride 20 MEQ Tab.ER PO SCH (11:30)
--- NOTE | 2017-05-20 11:30 | PCM.PN ---
- General Info Date of Service: 05/20/17 Functional Status: Reports: Pain Controlled, Tolerating Diet, Ambulating, Urinating - Review of Systems General: Reports: No Symptoms HEENT: Reports: No Symptoms Pulmonary: Reports: No Symptoms Cardiovascular: Reports: No Symptoms Gastrointestinal: Reports: No Symptoms Genitourinary: Reports: No Symptoms Musculoskeletal: Reports: No Symptoms Skin: Reports: No Symptoms Neurological: Reports: No Symptoms Psychiatric: Reports: No Symptoms - Patient Data Vitals - Most Recent: Last Vital Signs Temp 37.1 C 05/20/17 08:12 Pulse 73 05/20/17 08:15 Resp 16 05/20/17 08:12 BP 154/80 H 05/20/17 08:15 Pulse Ox 100 05/20/17 08:12 Weight - Most Recent: 83.143 kg I&O - Last 24 Hours: Intake & Output 05/19/17 05/20/17 05/20/17 22:59 06:59 14:59 Intake Total 3144 1480 484 Output Total 1650 550 Balance 1494 930 484 Lab Results Last 24 Hours: Laboratory Results - last 24 hr 05/19/17 05/19/17 05/19/17 Range/Units 13:02 14:11 15:12 WBC (3.98-10.04) K/mm3 RBC (3.98-5.22) M/mm3 Hgb (11.2-15.7) gm/L Hct (34.1-44.9) % MCV (79.4-94.8) fl MCH (25.6-32.2) pg MCHC (32.2-35.5) g/dl RDW Std Deviation (36.4-46.3) fL Plt Count (182-369) K/mm3 MPV (9.4-12.3) fl Neut % (Auto) (34.0-71.1) % Lymph % (Auto) (19.3-51.7) % [place] % (Auto) (4.7-12.5) % Eos % (Auto) (0.7-5.8) Baso % (Auto) (0.1-1.2) % Neut # (Auto) (1.56-6.13) K/mm3 Lymph # (Auto) (1.18-3.74) K/mm3 [place] # (Auto) (0.24-0.36) K/mm3 Eos # (Auto) (0.04-0.36) K/mm3 Baso # (Auto) (0.01-0.08) K/mm3 Sodium (136-145) mEq/L Potassium (3.5-5.1) mEq/L Chloride (98-107) mEq/L Carbon Dioxide (21-32) mEq/L Anion Gap (5-15) BUN (7-18) mg/dL Creatinine (0.55-1.02) mg/dL Est Cr Clr Drug Dosing mL/min Estimated GFR (MDRD) (>60) mL/min BUN/Creatinine Ratio (14-18) Glucose (74-106) mg/dL POC Glucose 135 H 72 79 (70-105) mg/dL Calcium (8.5-10.1) mg/dL C-Reactive Protein (<1.0) mg/dL Mycoplasma pneumon IgM (NEGATIVE) 05/19/17 05/19/17 05/19/17 Range/Units 15:49 16:15 17:14 WBC (3.98-10.04) K/mm3 RBC (3.98-5.22) M/mm3 Hgb (11.2-15.7) gm/L Hct (34.1-44.9) % MCV (79.4-94.8) fl MCH (25.6-32.2) pg MCHC (32.2-35.5) g/dl RDW Std Deviation (36.4-46.3) fL Plt Count (182-369) K/mm3 MPV (9.4-12.3) fl Neut % (Auto) (34.0-71.1) % Lymph % (Auto) (19.3-51.7) % [place] % (Auto) (4.7-12.5) % Eos % (Auto) (0.7-5.8) Baso % (Auto) (0.1-1.2) % Neut # (Auto) (1.56-6.13) K/mm3 Lymph # (Auto) (1.18-3.74) K/mm3 [place] # (Auto) (0.24-0.36) K/mm3 Eos # (Auto) (0.04-0.36) K/mm3 Baso # (Auto) (0.01-0.08) K/mm3 Sodium 145 (136-145) mEq/L Potassium 3.4 L (3.5-5.1) mEq/L Chloride 111 H (98-107) mEq/L Carbon Dioxide 21 (21-32) mEq/L Anion Gap 16.4 H (5-15) BUN 15 (7-18) mg/dL Creatinine 1.2 H (0.55-1.02) mg/dL Est Cr Clr Drug Dosing 58.63 mL/min Estimated GFR (MDRD) 47 (>60) mL/min BUN/Creatinine Ratio 12.5 L (14-18) Glucose 101 (74-106) mg/dL POC Glucose 87 90 (70-105) mg/dL Calcium 7.5 L (8.5-10.1) mg/dL C-Reactive Protein (<1.0) mg/dL Mycoplasma pneumon IgM (NEGATIVE) 05/19/17 05/19/17 05/19/17 Range/Units 18:15 20:00 20:01 WBC (3.98-10.04) K/mm3 RBC (3.98-5.22) M/mm3 Hgb (11.2-15.7) gm/L Hct (34.1-44.9) % MCV (79.4-94.8) fl MCH (25.6-32.2) pg MCHC (32.2-35.5) g/dl RDW Std Deviation (36.4-46.3) fL Plt Count (182-369) K/mm3 MPV (9.4-12.3) fl Neut % (Auto) (34.0-71.1) % Lymph % (Auto) (19.3-51.7) % [place] % (Auto) (4.7-12.5) % Eos % (Auto) (0.7-5.8) Baso % (Auto) (0.1-1.2) % Neut # (Auto) (1.56-6.13) K/mm3 Lymph # (Auto) (1.18-3.74) K/mm3 [place] # (Auto) (0.24-0.36) K/mm3 Eos # (Auto) (0.04-0.36) K/mm3 Baso # (Auto) (0.01-0.08) K/mm3 Sodium 142 (136-145) mEq/L Potassium 3.2 L (3.5-5.1) mEq/L Chloride 109 H (98-107) mEq/L Carbon Dioxide 21 (21-32) mEq/L Anion Gap 15.2 H (5-15) BUN 12 (7-18) mg/dL Creatinine 1.2 H (0.55-1.02) mg/dL Est Cr Clr Drug Dosing 58.63 mL/min Estimated GFR (MDRD) 47 (>60) mL/min BUN/Creatinine Ratio 10.0 L (14-18) Glucose 125 H (74-106) mg/dL POC Glucose 110 H 114 H (70-105) mg/dL Calcium 7.6 L (8.5-10.1) mg/dL C-Reactive Protein (<1.0) mg/dL Mycoplasma pneumon IgM (NEGATIVE) 05/19/17 05/19/17 05/19/17 Range/Units 21:00 22:09 23:23 WBC (3.98-10.04) K/mm3 RBC (3.98-5.22) M/mm3 Hgb (11.2-15.7) gm/L Hct (34.1-44.9) % MCV (79.4-94.8) fl MCH (25.6-32.2) pg MCHC (32.2-35.5) g/dl RDW Std Deviation (36.4-46.3) fL Plt Count (182-369) K/mm3 MPV (9.4-12.3) fl Neut % (Auto) (34.0-71.1) % Lymph % (Auto) (19.3-51.7) % [place] % (Auto) (4.7-12.5) % Eos % (Auto) (0.7-5.8) Baso % (Auto) (0.1-1.2) % Neut # (Auto) (1.56-6.13) K/mm3 Lymph # (Auto) (1.18-3.74) K/mm3 [place] # (Auto) (0.24-0.36) K/mm3 Eos # (Auto) (0.04-0.36) K/mm3 Baso # (Auto) (0.01-0.08) K/mm3 Sodium (136-145) mEq/L Potassium (3.5-5.1) mEq/L Chloride (98-107) mEq/L Carbon Dioxide (21-32) mEq/L Anion Gap (5-15) BUN (7-18) mg/dL Creatinine (0.55-1.02) mg/dL Est Cr Clr Drug Dosing mL/min Estimated GFR (MDRD) (>60) mL/min BUN/Creatinine Ratio (14-18) Glucose (74-106) mg/dL POC Glucose 131 H 139 H 136 H (70-105) mg/dL Calcium (8.5-10.1) mg/dL C-Reactive Protein (<1.0) mg/dL Mycoplasma pneumon IgM (NEGATIVE) 05/20/17 05/20/17 05/20/17 Range/Units 00:20 00:29 01:31 WBC (3.98-10.04) K/mm3 RBC (3.98-5.22) M/mm3 Hgb (11.2-15.7) gm/L Hct (34.1-44.9) % MCV (79.4-94.8) fl MCH (25.6-32.2) pg MCHC (32.2-35.5) g/dl RDW Std Deviation (36.4-46.3) fL Plt Count (182-369) K/mm3 MPV (9.4-12.3) fl Neut % (Auto) (34.0-71.1) % Lymph % (Auto) (19.3-51.7) % [place] % (Auto) (4.7-12.5) % Eos % (Auto) (0.7-5.8) Baso % (Auto) (0.1-1.2) % Neut # (Auto) (1.56-6.13) K/mm3 Lymph # (Auto) (1.18-3.74) K/mm3 [place] # (Auto) (0.24-0.36) K/mm3 Eos # (Auto) (0.04-0.36) K/mm3 Baso # (Auto) (0.01-0.08) K/mm3 Sodium 143 (136-145) mEq/L Potassium 3.1 L (3.5-5.1) mEq/L Chloride 112 H (98-107) mEq/L Carbon Dioxide 23 (21-32) mEq/L Anion Gap 11.1 (5-15) BUN 11 (7-18) mg/dL Creatinine 1.1 H (0.55-1.02) mg/dL Est Cr Clr Drug Dosing 63.96 mL/min Estimated GFR (MDRD) 52 (>60) mL/min BUN/Creatinine Ratio 10.0 L (14-18) Glucose 137 H (74-106) mg/dL POC Glucose 135 H 133 H (70-105) mg/dL Calcium 7.4 L (8.5-10.1) mg/dL C-Reactive Protein (<1.0) mg/dL Mycoplasma pneumon IgM (NEGATIVE) 05/20/17 05/20/17 05/20/17 Range/Units 02:44 03:30 05:19 WBC (3.98-10.04) K/mm3 RBC (3.98-5.22) M/mm3 Hgb (11.2-15.7) gm/L Hct (34.1-44.9) % MCV (79.4-94.8) fl MCH (25.6-32.2) pg MCHC (32.2-35.5) g/dl RDW Std Deviation (36.4-46.3) fL Plt Count (182-369) K/mm3 MPV (9.4-12.3) fl Neut % (Auto) (34.0-71.1) % Lymph % (Auto) (19.3-51.7) % [place] % (Auto) (4.7-12.5) % Eos % (Auto) (0.7-5.8) Baso % (Auto) (0.1-1.2) % Neut # (Auto) (1.56-6.13) K/mm3 Lymph # (Auto) (1.18-3.74) K/mm3 [place] # (Auto) (0.24-0.36) K/mm3 Eos # (Auto) (0.04-0.36) K/mm3 Baso # (Auto) (0.01-0.08) K/mm3 Sodium 143 (136-145) mEq/L Potassium 3.1 L (3.5-5.1) mEq/L Chloride 112 H (98-107) mEq/L Carbon Dioxide 23 (21-32) mEq/L Anion Gap 11.1 (5-15) BUN 11 (7-18) mg/dL Creatinine 1.1 H (0.55-1.02) mg/dL Est Cr Clr Drug Dosing 63.96 mL/min Estimated GFR (MDRD) 52 (>60) mL/min BUN/Creatinine Ratio 10.0 L (14-18) Glucose 100 (74-106) mg/dL POC Glucose 124 H 112 H (70-105) mg/dL Calcium 7.7 L (8.5-10.1) mg/dL C-Reactive Protein 0.2 (<1.0) mg/dL Mycoplasma pneumon IgM Negative (NEGATIVE) 05/20/17 05/20/17 05/20/17 Range/Units 05:19 05:19 06:40 WBC 4.39 (3.98-10.04) K/mm3 RBC 3.20 L (3.98-5.22) M/mm3 Hgb 10.6 L (11.2-15.7) gm/L Hct 30.8 L (34.1-44.9) % MCV 96.3 H (79.4-94.8) fl MCH 33.1 H (25.6-32.2) pg MCHC 34.4 (32.2-35.5) g/dl RDW Std Deviation 44.8 (36.4-46.3) fL Plt Count 115 L (182-369) K/mm3 MPV 9.7 (9.4-12.3) fl Neut % (Auto) 50.1 (34.0-71.1) % Lymph % (Auto) 40.5 (19.3-51.7) % [place] % (Auto) 6.2 (4.7-12.5) % Eos % (Auto) 3.0 (0.7-5.8) Baso % (Auto) 0.2 (0.1-1.2) % Neut # (Auto) 2.20 (1.56-6.13) K/mm3 Lymph # (Auto) 1.78 (1.18-3.74) K/mm3 [place] # (Auto) 0.27 (0.24-0.36) K/mm3 Eos # (Auto) 0.13 (0.04-0.36) K/mm3 Baso # (Auto) 0.01 (0.01-0.08) K/mm3 Sodium (136-145) mEq/L Potassium (3.5-5.1) mEq/L Chloride (98-107) mEq/L Carbon Dioxide (21-32) mEq/L Anion Gap (5-15) BUN (7-18) mg/dL Creatinine (0.55-1.02) mg/dL Est Cr Clr Drug Dosing mL/min Estimated GFR (MDRD) (>60) mL/min BUN/Creatinine Ratio (14-18) Glucose (74-106) mg/dL POC Glucose 106 H 135 H (70-105) mg/dL Calcium (8.5-10.1) mg/dL C-Reactive Protein (<1.0) mg/dL Mycoplasma pneumon IgM (NEGATIVE) 05/20/17 Range/Units 07:43 WBC (3.98-10.04) K/mm3 RBC (3.98-5.22) M/mm3 Hgb (11.2-15.7) gm/L Hct (34.1-44.9) % MCV (79.4-94.8) fl MCH (25.6-32.2) pg MCHC (32.2-35.5) g/dl RDW Std Deviation (36.4-46.3) fL Plt Count (182-369) K/mm3 MPV (9.4-12.3) fl Neut % (Auto) (34.0-71.1) % Lymph % (Auto) (19.3-51.7) % [place] % (Auto) (4.7-12.5) % Eos % (Auto) (0.7-5.8) Baso % (Auto) (0.1-1.2) % Neut # (Auto) (1.56-6.13) K/mm3 Lymph # (Auto) (1.18-3.74) K/mm3 [place] # (Auto) (0.24-0.36) K/mm3 Eos # (Auto) (0.04-0.36) K/mm3 Baso # (Auto) (0.01-0.08) K/mm3 Sodium (136-145) mEq/L Potassium (3.5-5.1) mEq/L Chloride (98-107) mEq/L Carbon Dioxide (21-32) mEq/L Anion Gap (5-15) BUN (7-18) mg/dL Creatinine (0.55-1.02) mg/dL Est Cr Clr Drug Dosing mL/min Estimated GFR (MDRD) (>60) mL/min BUN/Creatinine Ratio (14-18) Glucose (74-106) mg/dL POC Glucose 135 H (70-105) mg/dL Calcium (8.5-10.1) mg/dL C-Reactive Protein (<1.0) mg/dL Mycoplasma pneumon IgM (NEGATIVE) Shawn Results Last 24 Hours: Microbiology 05/19/17 18:00 Influenza Type A Antigen Screen - Final Nasal, Right NEGATIVE INFLUENZA A VIRUS AG Influenza Type B Antigen Screen - Final NEGATIVE INFLUENZA B VIRUS AG Med Orders - Current: Current Medications Aspirin (Aspirin) 81 mg PO DAILY [facility] Last Admin: 05/20/17 08:14 Dose: 81 mg Budesonide/Formoterol Fumarate (Symbicort 80-4.5 Mcg) 0 gm INH BID [facility] Last Admin: 05/20/17 10:21 Dose: Not Given Chlordiazepoxide HCl (Librium) 25 mg PO BID [facility] Last Admin: 05/20/17 08:15 Dose: 25 mg Clonidine HCl (Catapres) 0.1 mg PO Q8H [facility] Last Admin: 05/20/17 05:24 Dose: 0.1 mg Ferrous Sulfate (Slow Fe) 140 mg PO DAILY [facility] Last Admin: 05/20/17 08:16 Dose: 140 mg Fluoxetine HCl (Prozac) 20 mg PO DAILY [facility] Last Admin: 05/20/17 08:16 Dose: 20 mg Folic Acid (Folic Acid) 1 mg PO DAILY [facility] Last Admin: 05/20/17 08:14 Dose: 1 mg Haloperidol Lactate (Haldol) 1 mg IVPUSH Q8H PRN PRN Reason: restlessness Insulin Human Regular 100 unit (/ Sodium Chloride) 100 mls @ 8.31 mls/hr IV TITRATE MAGO; 0.1 UNITS/KG/HR PRN Reason: Protocol Last Titration: 05/20/17 06:42 Dose: 0.01 units/kg/hr, 1 mls/hr Dextrose/Sodium Chloride (Dextrose 5%-Normal Saline) 1,000 mls @ 125 mls/hr IV ASDIRECTED [facility] Last Admin: 05/20/17 05:24 Dose: 125 mls/hr Lactated Ringer's (Ringers, Lactated) 1,000 mls @ 75 mls/hr IV ASDIRECTED [facility] Stop: 05/20/17 16:00 Last Admin: 05/20/17 11:14 Dose: 75 mls/hr Potassium Chloride 10 meq/ (Premix) 100 mls @ 100 mls/hr IV ASDIRECTED [facility] Stop: 05/23/17 12:29 Insulin Aspart (Novolog) 0 unit SUBCUT QIDACANDBED [facility] PRN Reason: Protocol Insulin Detemir (Levemir) 10 unit SUBCUT BID [facility] Last Admin: 05/20/17 08:14 Dose: Not Given Metoprolol Tartrate (Lopressor) 5 mg IVPUSH Q4H PRN PRN Reason: HR>120 Metoprolol Tartrate (Lopressor) 25 mg PO Q12HR [facility] Last Admin: 05/20/17 08:15 Dose: 25 mg Pantoprazole Sodium (Protonix) 40 mg PO BIDAC [facility] Last Admin: 05/20/17 05:24 Dose: 40 mg Quetiapine Fumarate (Seroquel) 50 mg PO BEDTIME [facility] Last Admin: 05/19/17 20:44 Dose: 50 mg Thiamine HCl (Vitamin B-1) 100 mg PO DAILY [facility] Last Admin: 05/20/17 08:16 Dose: 100 mg Topiramate (Topamax) 25 mg PO BID [facility] Last Admin: 05/20/17 08:17 Dose: 25 mg Discontinued Medications Sodium Chloride (Normal Saline) 1,000 mls @ 1,000 mls/hr IV ASDIRECTED [facility] Last Admin: 05/19/17 06:13 Dose: 1,000 mls/hr Sodium Chloride (Normal Saline) 1,000 mls @ 999 mls/hr IV ONETIME ONE Stop: 05/19/17 07:14 Last Admin: 05/19/17 06:15 Dose: 999 mls/hr Sodium Chloride (Normal Saline) 1,000 mls @ 999 mls/hr IV ONETIME ONE Stop: 05/19/17 07:14 Last Admin: 05/19/17 04:57 Dose: 999 mls/hr Sodium Chloride (Normal Saline) 1,000 mls @ 999 mls/hr IV ONETIME ONE Stop: 05/19/17 07:14 Last Admin: 05/19/17 06:16 Dose: Not Given Insulin Human Regular 100 unit (/ Sodium Chloride) 100 mls @ 7.71 mls/hr IV TITRATE MAGO; 0.1 UNITS/KG/HR PRN Reason: Protocol Last Titration: 05/19/17 10:56 Dose: 0.03 units/kg/hr, 2.5 mls/hr Sodium Chloride (Normal Saline) 1,000 mls @ 999 mls/hr IV ONETIME ONE Stop: 05/19/17 09:36 Last Admin: 05/19/17 08:39 Dose: 999 mls/hr Sodium Chloride (Normal Saline) 1,000 mls @ 500 mls/hr IV ONETIME ONE Stop: 05/19/17 10:37 Last Admin: 05/19/17 08:39 Dose: 500 mls/hr Lactated Ringer's (Ringers, Lactated) 1,000 mls @ 150 mls/hr IV ASDIRECTED [facility] Sodium Chloride (Normal Saline) 1,000 mls @ 150 mls/hr IV ASDIRECTED [facility] Last Admin: 05/19/17 10:57 Dose: 150 mls/hr Magnesium Sulfate 4 gm/ Premix 100 mls @ 50 mls/hr IV ONETIME ONE Stop: 05/19/17 14:41 Last Admin: 05/19/17 13:24 Dose: Not Given Sodium Chloride (Normal Saline) 1,000 mls @ 999 mls/hr IV ASDIRECTED [facility] Stop: 05/20/17 13:49 Last Admin: 05/19/17 14:28 Dose: 999 mls/hr Magnesium Sulfate 2 gm/ Premix 50 mls @ 50 mls/hr IV Q1H [facility] Stop: 05/19/17 15:14 Last Admin: 05/19/17 14:31 Dose: 50 mls/hr Insulin Human Regular (Humulin R) 10 unit IV ONETIME ONE Stop: 05/19/17 06:01 Last Admin: 05/19/17 06:07 Dose: 10 unit - Exam Quality Assessment: Supplemental Oxygen, DVT Prophylaxis General: Alert, Oriented, Cooperative HEENT: Pupils Equal, Pupils Reactive, EOMI Neck: Trachea Midline, No JVD Lungs: Normal Respiratory Effort Cardiovascular: Regular Rate, Regular Rhythm GI/Abdominal Exam: Normal Bowel Sounds, Soft, Non-Tender, No Organomegaly, No Distention (Female) Exam: Deferred Back Exam: Normal Inspection Extremities: Normal Inspection Skin: Warm Neurological: No New Focal Deficit Psy/Mental Status: Alert, Normal Affect, Normal Mood - Problem List Review Problem List Initiated/Reviewed/Updated: Yes - My Orders Last 24 Hours: My Active Orders 05/19/17 12:30 Insulin Regular, Human [HumuLIN R] 100 unit Sodium Chloride 0.9% [Normal Saline] 99 ml IV TITRATE 05/19/17 12:42 Consult for Substance Abuse [CONS] Routine 05/19/17 12:43 CIWAA Assessment [RC] Q4HR Notify Provider Consults [RC] ASDIRECTED Consult to Physician [CONS] Routine 05/19/17 13:24 Consult to Physical Therapy [PT Evaluation and Treatment] [CONS] Routine 05/19/17 13:25 Consult to Occupational Therapy [OT Evaluation and Treatment] [CONS] Routine Consult to Supervisor Byproducts [CONS] Routine 05/19/17 13:29 Metoprolol Tartrate [Lopressor] 5 mg IVPUSH Q4H PRN 05/19/17 13:31 Haloperidol Lactate [Haldol] 1 mg IVPUSH Q8H PRN 05/19/17 16:00 Pantoprazole [ProTONIX] 40 mg PO BIDAC 05/19/17 18:30 chlordiazePOXIDE [Librium] 25 mg PO BID 05/19/17 21:00 Budesonide/Formoterol [Symbicort 80-4.5 MCG] 0 gm INH BID Dextrose 5%-0.9% NaCl [Dextrose 5%-Normal Saline] 1,000 ml IV ASDIRECTED Metoprolol Tartrate [Lopressor] 25 mg PO Q12HR QUEtiapine [SEROquel] 50 mg PO BEDTIME Topiramate [Topamax] 25 mg PO BID cloNIDine [Catapres] 0.1 mg PO Q8H 05/19/17 22:52 Code Status [Resuscitation Status] Routine 05/20/17 09:00 Aspirin 81 mg PO DAILY FLUoxetine [PROzac] 20 mg PO DAILY Ferrous Sulfate [Slow Fe] 140 mg PO DAILY Folic Acid 1 mg PO DAILY Thiamine [Vitamin B-1] 100 mg PO DAILY 05/20/17 10:12 Antiembolic Devices [RC] PER UNIT ROUTINE MJ Hose [Antiembolic Hose] [OM.PC] Routine 05/20/17 10:15 Lactated Ringers [Ringers, Lactated] 1,000 ml IV ASDIRECTED 05/20/17 11:00 Insulin Aspart [NovoLOG] See Protocol SUBCUT QIDACANDBED 05/20/17 11:22 BASIC METABOLIC PANEL,BMP [CHEM] Routine 05/20/17 11:30 Potassium Chloride [KCl 10 MEQ in Water 100 ML] 10 meq Premix Bag 1 bag IV ASDIRECTED 05/21/17 05:00 CBC WITH AUTO DIFF [HEME] DAILY CRP [C-REACTIVE PROTEIN] [CHEM] DAILY 05/22/17 05:00 CBC WITH AUTO DIFF [HEME] DAILY CRP [C-REACTIVE PROTEIN] [CHEM] DAILY 05/23/17 05:00 CBC WITH AUTO DIFF [HEME] DAILY - Plan Plan:: Impression: DKA with history of DM type I AMS, resolved JEFF, resolved ETOH dependence/abuse (21 drinks per week, drinks daily); MELANI 0.15 CIWA ~7-->0 Depression/Anxiety--recent treatment Fall 2016 Chronic HTN Pancreatitis GERD Plan: Advance diet as tolerated Replace electrolytes DKA protocol [facility] protocol Psych consult--declined SA consult--declined Patient stated that she will no longer see her psychiatrist in [place]. Will be treated by a psychologist in [facility]. Additional medical needs will be addressed by Dr Suarez. Daily labs Home meds GI/DVT prophylaxis
[2017-05-20] MEDS: Potassium Chloride 10 MEQ in Premix Bag 1 BAG IV SCH ×4 (12:00→15:13)
[2017-05-20] MEDS: Insulin Aspart 100 Units/ML 3 ML Pen SUBCUT SCH ×4 (12:09→23:17)
[2017-05-20] MEDS ORDERED: hydrALAZINE 20 MG/ML SDV IVPUSH PRN (16:19)
[2017-05-20] MEDS: QUEtiapine 25 MG Tab PO SCH (20:09)
[2017-05-21] MEDS: cloNIDine 0.1 MG Tab PO SCH (05:30)
[2017-05-21] MEDS: Pantoprazole 40 MG Tab.CR PO SCH (05:31)
[2017-05-21] MEDS: Insulin Aspart 100 Units/ML 3 ML Pen SUBCUT SCH (06:57)
[2017-05-21 08:14] VITALS: BP 140/77
[2017-05-21] MEDS: FLUoxetine 20 MG Cap PO SCH (08:20)
[2017-05-21] MEDS: Folic Acid 1 MG Tab PO SCH (08:20)
[2017-05-21] MEDS: Budesonide/Formoterol 80-4.5 MCG/Puff 6.9 GM Inhaler INH SCH ×2 (08:20→08:37)
[2017-05-21] MEDS: chlordiazePOXIDE 25 MG Cap PO SCH (08:20)
[2017-05-21] MEDS: Thiamine 100 MG Tab PO SCH (08:20)
[2017-05-21] MEDS: Aspirin 81 MG Tab.Chew PO SCH (08:20)
[2017-05-21] MEDS: Ferrous Sulfate 140 MG Tab PO SCH (08:20)
[2017-05-21] MEDS: Topiramate 25 MG Tab PO SCH (08:20)
[2017-05-21] MEDS: Metoprolol Tartrate 25 MG Tab PO SCH (08:20)
[2017-05-21] MEDS: Insulin Detemir 100 Units/ML 3 ML Pen SUBCUT SCH (09:00)
--- NOTE | 2017-05-21 11:37 | PCM.DCSUM1 ---
Discharge Summary - Hospital Course Free Text/Narrative:: 52 year old female presented with a GCS 7, was found to have an AG 25; glucose 570; CK 625; lactic acid 8.1; BUN/Cr 23/2.0; Mg 1.4; MELANI 0.15. An ABG was done on arrival that documented a pH 7.18, CO2 31, O2 99. The original decision to intubated was cancelled after she began to respond to treatment of IVF, hydration and insulin. She was found by her with multiple empty bottles of prescription drugs. She had a similar episode in January 2017 when she called one of her children and subsequently took several of her prescriptions at one time mixed with alcohol. She was discharged for psychiatric treatment as well as substance abuse treatment. She will be admitted to the ICU for DKA and alcohol withdrawal. 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 [CONS] Routine - Patient Instructions Diet: Heart Healthy Diet, Diabetic Diet (2000 kevon) Activity: As Tolerated Driving: Do Not Drive Showering/Bathing: May Shower Notify Provider of: Fever, Nausea and/or Vomiting - Discharge Plan Home Medications: Home Meds Iron 1 tab PO DAILY 07/28/16 [History] Aspirin 81 mg PO DAILY #30 tab.chew 07/31/16 [Rx] Albuterol [Ventolin HFA] 2 puff INH Q4H PRN 01/21/17 [History] Budesonide/Formoterol Fumarate [Symbicort 80-4.5 Mcg Inhaler] 2 puff IH BID [History] Benzocaine/Cetylpyrd/Menthol [Cepacol Sore Throat] 1 lozenge MUCMEM Q2HR PRN # 60 rusty 01/23/17 [Rx] FLUoxetine [PROzac] 20 mg PO DAILY #30 cap 01/23/17 [Rx] Folic Acid 1 mg PO DAILY #30 tablet 10/18/17 [Rx] HCTZ/Triamterene [Maxzide 50-75 MG] 1 each PO DAILY #30 tablet 01/23/17 [Rx] Insulin Detemir [Levemir] 10 unit SUBCUT BID #30 pen 01/23/17 [Rx] Lisinopril [Prinivil] 20 mg PO DAILY #30 tablet 01/23/17 [Rx] Pantoprazole [ProTONIX] 40 mg PO BIDAC #60 tab.cr 01/23/17 [Rx] QUEtiapine [SEROquel] 50 mg PO BEDTIME #30 tablet 01/23/17 [Rx] Temazepam [Restoril] 15 mg PO BEDTIME #30 cap 01/23/17 [Rx] Thiamine [Vitamin B-1] 100 mg PO DAILY #30 tablet 01/23/17 [Rx] Topiramate [Topamax] 25 mg PO BID #60 tablet 01/23/17 [Rx] Patient Handouts: Diabetic Ketoacidosis, Dehydration, Adult, [id number] - Discharge Summary/Plan Comment DC Time >30 min.: No Discharge Summary/Plan Comment: Impression: DKA with history of DM type I AMS, resolved JEFF, resolved ETOH dependence/abuse (21 drinks per week, drinks daily); MELANI 0.15 CIWA ~7-->0 Depression/Anxiety--recent treatment Fall 2016 Chronic HTN Pancreatitis GERD Plan: Advance diet as tolerated Replace electrolytes DKA protocol CIFL protocol Psych consult--declined SA consult--declined Patient stated that she will no longer see her psychiatrist in [place]. Will be treated by a psychologist in [facility]. Additional medical needs will be addressed by Dr Suarez. Daily labs Home meds GI/DVT prophylaxis - General Info Date of Service: 05/19/17 Functional Status: Reports: Tolerating Diet, Ambulating, Urinating - Review of Systems General: Reports: No Symptoms HEENT: Reports: No Symptoms Pulmonary: Reports: No Symptoms Cardiovascular: Reports: No Symptoms Gastrointestinal: Reports: No Symptoms Genitourinary: Reports: No Symptoms Musculoskeletal: Reports: No Symptoms Skin: Reports: No Symptoms Neurological: Reports: No Symptoms Psychiatric: Reports: No Symptoms - Patient Data Vitals - Most Recent: Last Vital Signs Temp 36.8 C 02/13/18 08:00 Pulse 71 05/21/17 08:20 Resp 18 05/21/17 08:00 BP 140/77 05/21/17 08:20 Pulse Ox 99 05/21/17 08:38 Weight - Most Recent: 84.1 kg I&O - Last 24 hours: Intake & Output 05/20/17 05/21/17 05/21/17 22:59 06:59 14:59 Intake Total 1947 1200 Output Total 1650 1000 400 Balance 297 200 -400 Lab Results - Last 24 hrs: Laboratory Results - last 24 hr 05/20/17 05/20/17 05/20/17 Range/Units 12:03 12:05 16:24 WBC (3.98-10.04) K/mm3 RBC (3.98-5.22) M/mm3 Hgb (11.2-15.7) gm/L Hct (34.1-44.9) % MCV (79.4-94.8) fl MCH (25.6-32.2) pg MCHC (32.2-35.5) g/dl RDW Std Deviation (36.4-46.3) fL Plt Count (182-369) K/mm3 MPV (9.4-12.3) fl Neut % (Auto) (34.0-71.1) % Lymph % (Auto) (19.3-51.7) % [place] % (Auto) (4.7-12.5) % Eos % (Auto) (0.7-5.8) Baso % (Auto) (0.1-1.2) % Neut # (Auto) (1.56-6.13) K/mm3 Lymph # (Auto) (1.18-3.74) K/mm3 [place] # (Auto) (0.24-0.36) K/mm3 Eos # (Auto) (0.04-0.36) K/mm3 Baso # (Auto) (0.01-0.08) K/mm3 Manual Slide Review Sodium 141 (136-145) mEq/L Potassium 3.4 L (3.5-5.1) mEq/L Chloride 108 H (98-107) mEq/L Carbon Dioxide 21 (21-32) mEq/L Anion Gap 15.4 H (5-15) BUN 10 (7-18) mg/dL Creatinine 1.1 H (0.55-1.02) mg/dL Est Cr Clr Drug Dosing 63.96 mL/min Estimated GFR (MDRD) 52 (>60) mL/min BUN/Creatinine Ratio 9.1 L (14-18) Glucose 223 H (74-106) mg/dL POC Glucose 235 H 257 H (70-105) mg/dL Calcium 7.9 L (8.5-10.1) mg/dL C-Reactive Protein (<1.0) mg/dL 05/20/17 05/20/17 05/21/17 Range/Units 16:25 20:06 05:49 WBC 3.65 L (3.98-10.04) K/mm3 RBC 3.19 L (3.98-5.22) M/mm3 Hgb 10.3 L (11.2-15.7) gm/L Hct 30.9 L (34.1-44.9) % MCV 96.9 H (79.4-94.8) fl MCH 32.3 H (25.6-32.2) pg MCHC 33.3 (32.2-35.5) g/dl RDW Std Deviation 44.8 (36.4-46.3) fL Plt Count 104 L (182-369) K/mm3 MPV 10.1 (9.4-12.3) fl Neut % (Auto) 44.7 (34.0-71.1) % Lymph % (Auto) 43.8 (19.3-51.7) % [place] % (Auto) 7.7 (4.7-12.5) % Eos % (Auto) 3.3 (0.7-5.8) Baso % (Auto) 0.5 (0.1-1.2) % Neut # (Auto) 1.63 (1.56-6.13) K/mm3 Lymph # (Auto) 1.60 (1.18-3.74) K/mm3 [place] # (Auto) 0.28 (0.24-0.36) K/mm3 Eos # (Auto) 0.12 (0.04-0.36) K/mm3 Baso # (Auto) 0.02 (0.01-0.08) K/mm3 Manual Slide Review Not Reportable Sodium 138 (136-145) mEq/L Potassium 4.7 (3.5-5.1) mEq/L Chloride 107 (98-107) mEq/L Carbon Dioxide 22 (21-32) mEq/L Anion Gap 13.7 (5-15) BUN 9 (7-18) mg/dL Creatinine 1.0 (0.55-1.02) mg/dL Est Cr Clr Drug Dosing 70.35 mL/min Estimated GFR (MDRD) 58 (>60) mL/min BUN/Creatinine Ratio 9.0 L (14-18) Glucose 276 H (74-106) mg/dL POC Glucose 165 H (70-105) mg/dL Calcium 8.1 L (8.5-10.1) mg/dL C-Reactive Protein (<1.0) mg/dL 05/21/17 05/21/17 05/21/17 Range/Units 05:49 05:50 07:54 WBC (3.98-10.04) K/mm3 RBC (3.98-5.22) M/mm3 Hgb (11.2-15.7) gm/L Hct (34.1-44.9) % MCV (79.4-94.8) fl MCH (25.6-32.2) pg MCHC (32.2-35.5) g/dl RDW Std Deviation (36.4-46.3) fL Plt Count (182-369) K/mm3 MPV (9.4-12.3) fl Neut % (Auto) (34.0-71.1) % Lymph % (Auto) (19.3-51.7) % [place] % (Auto) (4.7-12.5) % Eos % (Auto) (0.7-5.8) Baso % (Auto) (0.1-1.2) % Neut # (Auto) (1.56-6.13) K/mm3 Lymph # (Auto) (1.18-3.74) K/mm3 [place] # (Auto) (0.24-0.36) K/mm3 Eos # (Auto) (0.04-0.36) K/mm3 Baso # (Auto) (0.01-0.08) K/mm3 Manual Slide Review Sodium 141 (136-145) mEq/L Potassium 3.6 (3.5-5.1) mEq/L Chloride 109 H (98-107) mEq/L Carbon Dioxide 21 (21-32) mEq/L Anion Gap 14.6 (5-15) BUN 11 (7-18) mg/dL Creatinine 1.0 (0.55-1.02) mg/dL Est Cr Clr Drug Dosing 70.35 mL/min Estimated GFR (MDRD) 58 (>60) mL/min BUN/Creatinine Ratio 11.0 L (14-18) Glucose 86 (74-106) mg/dL POC Glucose 101 97 (70-105) mg/dL Calcium 8.5 (8.5-10.1) mg/dL C-Reactive Protein 0.2 (<1.0) mg/dL Med Orders - Current: Current Medications Aspirin (Aspirin) 81 mg PO DAILY [facility] Last Admin: 05/21/17 08:20 Dose: 81 mg Budesonide/Formoterol Fumarate (Symbicort 80-4.5 Mcg) 0 gm INH BID [facility] Last Admin: 05/21/17 08:37 Dose: 2 puff Chlordiazepoxide HCl (Librium) 25 mg PO BID [facility] Last Admin: 05/21/17 08:20 Dose: 25 mg Clonidine HCl (Catapres) 0.1 mg PO Q8H [facility] Last Admin: 05/21/17 05:30 Dose: Not Given Ferrous Sulfate (Slow Fe) 140 mg PO DAILY [facility] Last Admin: 05/21/17 08:20 Dose: 140 mg Fluoxetine HCl (Prozac) 20 mg PO DAILY [facility] Last Admin: 05/21/17 08:20 Dose: 20 mg Folic Acid (Folic Acid) 1 mg PO DAILY [facility] Last Admin: 05/21/17 08:20 Dose: 1 mg Haloperidol Lactate (Haldol) 1 mg IVPUSH Q8H PRN PRN Reason: restlessness Hydralazine HCl (Apresoline) 20 mg IVPUSH Q6H PRN PRN Reason: Hypertension Last Admin: 05/20/17 16:40 Dose: 20 mg Insulin Human Regular 100 unit (/ Sodium Chloride) 100 mls @ 8.31 mls/hr IV TITRATE MAGO; 0.1 UNITS/KG/HR PRN Reason: Protocol Last Titration: 05/20/17 06:42 Dose: 0.01 units/kg/hr, 1 mls/hr Dextrose/Sodium Chloride (Dextrose 5%-Normal Saline) 1,000 mls @ 125 mls/hr IV ASDIRECTED [facility] Last Admin: 05/20/17 05:24 Dose: 125 mls/hr Potassium Chloride 10 meq/ (Premix) 100 mls @ 100 mls/hr IV ASDIRECTED [facility] Stop: 05/23/17 12:29 Last Admin: 05/20/17 15:13 Dose: 100 mls/hr Insulin Aspart (Novolog) 0 unit SUBCUT QIDACANDBED [facility] PRN Reason: Protocol Last Admin: 05/21/17 06:57 Dose: Not Given Insulin Detemir (Levemir) 10 unit SUBCUT BID [facility] Last Admin: 05/21/17 09:00 Dose: 10 units Metoprolol Tartrate (Lopressor) 5 mg IVPUSH Q4H PRN PRN Reason: HR>120 Metoprolol Tartrate (Lopressor) 25 mg PO Q12HR [facility] Last Admin: 05/21/17 08:20 Dose: 25 mg Pantoprazole Sodium (Protonix) 40 mg PO BIDAC [facility] Last Admin: 05/21/17 05:31 Dose: 40 mg Quetiapine Fumarate (Seroquel) 50 mg PO BEDTIME [facility] Last Admin: 05/20/17 20:09 Dose: 50 mg Thiamine HCl (Vitamin B-1) 100 mg PO DAILY [facility] Last Admin: 05/21/17 08:20 Dose: 100 mg Topiramate (Topamax) 25 mg PO BID [facility] Last Admin: 05/21/17 08:20 Dose: 25 mg Discontinued Medications Sodium Chloride (Normal Saline) 1,000 mls @ 1,000 mls/hr IV ASDIRECTED [facility] Last Admin: 05/19/17 06:13 Dose: 1,000 mls/hr Sodium Chloride (Normal Saline) 1,000 mls @ 999 mls/hr IV ONETIME ONE Stop: 05/19/17 07:14 Last Admin: 05/19/17 06:15 Dose: 999 mls/hr Sodium Chloride (Normal Saline) 1,000 mls @ 999 mls/hr IV ONETIME ONE Stop: 05/19/17 07:14 Last Admin: 05/19/17 04:57 Dose: 999 mls/hr Sodium Chloride (Normal Saline) 1,000 mls @ 999 mls/hr IV ONETIME ONE Stop: 05/19/17 07:14 Last Admin: 05/19/17 06:16 Dose: Not Given Insulin Human Regular 100 unit (/ Sodium Chloride) 100 mls @ 7.71 mls/hr IV TITRATE MAGO; 0.1 UNITS/KG/HR PRN Reason: Protocol Last Titration: 05/19/17 10:56 Dose: 0.03 units/kg/hr, 2.5 mls/hr Sodium Chloride (Normal Saline) 1,000 mls @ 999 mls/hr IV ONETIME ONE Stop: 05/19/17 09:36 Last Admin: 05/19/17 08:39 Dose: 999 mls/hr Sodium Chloride (Normal Saline) 1,000 mls @ 500 mls/hr IV ONETIME ONE Stop: 05/19/17 10:37 Last Admin: 05/19/17 08:39 Dose: 500 mls/hr Lactated Ringer's (Ringers, Lactated) 1,000 mls @ 150 mls/hr IV ASDIRECTED [facility] Sodium Chloride (Normal Saline) 1,000 mls @ 150 mls/hr IV ASDIRECTED [facility] Last Admin: 05/19/17 10:57 Dose: 150 mls/hr Magnesium Sulfate 4 gm/ Premix 100 mls @ 50 mls/hr IV ONETIME ONE Stop: 05/19/17 14:41 Last Admin: 05/19/17 13:24 Dose: Not Given Sodium Chloride (Normal Saline) 1,000 mls @ 999 mls/hr IV ASDIRECTED [facility] Stop: 05/20/17 13:49 Last Admin: 05/19/17 14:28 Dose: 999 mls/hr Magnesium Sulfate 2 gm/ Premix 50 mls @ 50 mls/hr IV Q1H [facility] Stop: 05/19/17 15:14 Last Admin: 05/19/17 14:31 Dose: 50 mls/hr Lactated Ringer's (Ringers, Lactated) 1,000 mls @ 75 mls/hr IV ASDIRECTED [facility] Stop: 05/20/17 16:00 Last Admin: 05/20/17 11:14 Dose: 75 mls/hr Insulin Human Regular (Humulin R) 10 unit IV ONETIME ONE Stop: 05/19/17 06:01 Last Admin: 05/19/17 06:07 Dose: 10 unit Potassium Chloride (Klor-Con M20) 40 meq PO BID [facility] Stop: 05/21/17 21:01 Last Admin: 05/20/17 12:02 Dose: 40 meq - Exam Quality Assessment: Reports: DVT Prophylaxis General: Reports: Alert, Oriented, Cooperative, No Acute Distress HEENT: Reports: Pupils Equal, Pupils Reactive, EOMI Neck: Reports: Trachea Midline, No JVD Lungs: Reports: Normal Respiratory Effort GI/Abdominal Exam: Normal Bowel Sounds, Soft, Non-Tender, No Organomegaly, No Distention (Female) Exam: Deferred Rectal (Female) Exam: Deferred Back Exam: Reports: Normal Inspection Extremities: Normal Inspection, Normal Range of Motion, Non-Tender, No Pedal Edema Skin: Reports: Warm, Dry, Intact Neurological: Reports: No New Focal Deficit, Normal Gait, Normal Speech Psy/Mental Status: Reports: Alert, Normal Affect, Normal Mood *Q Meaningful Use (DIS) - VTE *Q VTE Criteria *Q: - Stroke *Q Stroke Criteria *Q: - AMI *Q AMI Criteria *Q:
== END 2017-05-21 12:20 | disposition home or self-care (01) | DRG 420 ==
LOC: JD.ED 04:45 → JD.ICU 09:54 → UNDOADMIN 09:54 → JD.ICU 12:15
PROVIDERS: ADMIT Internal Medicine Cardiovascular Disease; ATTEND Internal Medicine Cardiovascular Disease
DX: E10.11 Type 1 diabetes mellitus with ketoacidosis with coma (principal); Z79.4 Long term (current) use of insulin; F10.239 Alcohol dependence with withdrawal, unspecified; E86.0 Dehydration; Y90.0 Blood alcohol level of less than 20 mg/100 ml; N17.9 Acute kidney failure, unspecified; F32.9 Major depressive disorder, single episode, unspecified; F41.9 Anxiety disorder, unspecified; I10 Essential (primary) hypertension; J45.909 Unspecified asthma, uncomplicated; E61.1 Iron deficiency; K21.9 Gastro-esophageal reflux disease without esophagitis; H54.7 Unspecified visual loss; K86.1 Other chronic pancreatitis; Z88.7 Allergy status to serum and vaccine; Z79.82 Long term (current) use of aspirin; Z79.899 Other long term (current) drug therapy
CPT/HCPCS: 36415; 36600; 70450; 70450-26; 71045; 71045-26; 80048; 80053; 80306; 81001; 82009; 82550; 82803; 82962; 83605; 83735; 84484; 84703; 85025; 86140; 86738; 87040; 87804; 87899; 93005; 94664; 96361; 96365; 96376; 97161-GP; 97165-GO; 99223; 99231; 99238; 99285; 99285-25; A9270-GY; G0480; J0360; J1815; J1815-GY; J3475; J3480; J7030; J7040; J7042; J7120; P9612

== ENCOUNTER 2017-06-01 08:58 | Emergency (ER) | payer BC ==
[2017-06-01] MEDS ORDERED: Sodium Chloride 0.9% 10 ML Syringe FLUSH PRN ×2 (09:11→09:12)
[2017-06-01] MEDS ORDERED: Naloxone 0.4 MG/ML SDV IVPUSH ONE (09:12)
[2017-06-01] MEDS ORDERED: Naloxone 2 MG/2 ML Syringe ONE (09:15)
[2017-06-01 09:16] VITALS: BP 83/56
[2017-06-01] MEDS: Sodium Chloride 0.9% 1,000 ML IV SCH ×2 (09:17→10:25)
--- NOTE | 2017-06-01 09:53 | CT ---
Head CT Technique: Multiple axial sections through the brain were obtained. Intravenous contrast was not utilized. Comparison: Prior head CT exam of 05/19/17. Findings: Ventricles along with basal cisterns and sulci over the convexities are within normal limits for the patient's age. No abnormal parenchymal densities are seen. No evidence of intracranial hemorrhage. No midline shift or mass effect is seen. Mild mucosal thickening is seen within the sphenoid sinus. Minimal calcification within the carotid siphon is seen. No acute calvarial abnormality is seen. Impression: 1. Mild mucosal thickening within the sphenoid sinus which appears stable from prior exam and is felt to be incidental. 2. Nothing acute is identified on noncontrast head CT study. No significant change is seen from previous exam. Diagnostic code #2
[2017-06-01 09:56] LABS: ACETAMINOPHEN 0 ug/mL (10-30)
[2017-06-01] MEDS ORDERED: Sodium Chloride 0.9% 1,000 ML ONE (10:28)
[2017-06-01] MEDS ORDERED: Magnesium Sulfate/Water 2 GM in Premix Bag 1 BAG IV ONE (11:16)
--- NOTE | 2017-06-01 11:20 | EDM.PDOC ---
ED HPI GENERAL MEDICAL PROBLEM - General Chief Complaint: Neurological Problem Stated Complaint: [facility] Time Seen by Provider: 06/01/17 09:10 Source of Information: Reports: EMS, Family (), RN Notes Reviewed - History of Present Illness INITIAL COMMENTS - FREE TEXT/NARRATIVE: 52-year-old lady found unresponsive in a chair and either family or living room of home this morning by . He had gone to bed as usual last evening. At that time she was sitting in a chair watching a movie or something like that on her I pad. She was in no apparent distress. Of note she does drink alcohol, vodka daily and had been consuming alcohol yesterday evening as usual. Her was not aware of her being in any unusual emotional distress. When he awakened this morning she was sitting in the chair totally unresponsive. Initially thought she was , called EMS. He than realized she was breathing, was not dusky. Upon EMS arrival she was breathing with oxygenation around 88% room air. She was unresponsive verbally and to pain for them. She was hypotensive at the scene. They did start an IV and some IV normal saline with improved blood pressure recorded during transport. She does have history of a similar incident occurring last January about 4 months ago. At that time it benzodiazepine overdose. According to prior records she is on daily lorazepam, temazepam and trazodone in addition to her other meds. See medication list for details. Blood sugar on scene was 295. She also does have history of hypertension. - Related Data Allergies Allergy/AdvReac Type Severity Reaction Status Date / Time Influenza Virus Vaccines Allergy Itching Verified 08/20/16 15:18 pneumococcal vaccine Allergy Redness Verified 08/20/16 15:18 Home Meds: Home Meds Iron 1 tab PO DAILY 07/28/16 [History] Aspirin 81 mg PO DAILY #30 tab.chew 07/31/16 [Rx] Albuterol [Ventolin HFA] 2 puff INH Q4H PRN 01/21/17 [History] Budesonide/Formoterol Fumarate [Symbicort 80-4.5 Mcg Inhaler] 2 puff IH BID [History] Benzocaine/Cetylpyrd/Menthol [Cepacol Sore Throat] 1 lozenge MUCMEM Q2HR PRN # 60 rusty 01/23/17 [Rx] FLUoxetine [PROzac] 20 mg PO DAILY #30 cap 01/23/17 [Rx] Folic Acid 1 mg PO DAILY #30 tablet 01/23/17 [Rx] HCTZ/Triamterene [Maxzide 50-75 MG] 1 each PO DAILY #30 tablet 01/23/17 [Rx] Insulin Detemir [Levemir] 10 unit SUBCUT BID #30 pen 01/23/17 [Rx] Lisinopril [Prinivil] 20 mg PO DAILY #30 tablet 01/23/17 [Rx] Pantoprazole [ProTONIX] 40 mg PO BIDAC #60 tab.cr 01/23/17 [Rx] QUEtiapine [SEROquel] 50 mg PO BEDTIME #30 tablet 01/23/17 [Rx] Temazepam [Restoril] 15 mg PO BEDTIME #30 cap 01/23/17 [Rx] Thiamine [Vitamin B-1] 100 mg PO DAILY #30 tablet 01/23/17 [Rx] Topiramate [Topamax] 25 mg PO BID #60 tablet 01/23/17 [Rx] Past Medical History HEENT History: Reports: Impaired Vision Other HEENT History: wear glasses Cardiovascular History: Reports: Hypertension Respiratory History: Reports: Asthma Gastrointestinal History: Reports: GERD, Pancreatitis Genitourinary History: Reports: UTI, Recurrent [employer] History: Reports: Fibroids, Other (See Below) Other OB/BYN History: hysterectomy with overies intact Musculoskeletal History: Reports: Other (See Below) Other Musculoskeletal History: pt takes lyrica for pain Neurological History: Reports: None Psychiatric History: Reports: Depression Endocrine/Metabolic History: Reports: Diabetes, Type I Other Endocrine/Metabolic History: recent weight gain Hematologic History: Reports: Iron Deficiency Other Oncologic History: colon polups Dermatologic History: Reports: None - Infectious Disease History Infectious Disease History: Reports: Chicken Pox - Past Surgical History Cardiovascular Surgical History: Reports: None GI Surgical History: Reports: Appendectomy, Bariatric Procedure, Cholecystectomy Female Surgical History: Reports: Hysterectomy, Other (See Below) Neurological Surgical History: Reports: None Dermatological Surgical History: Reports: Other (See Below) Social & Family History - Family History Family Medical History: Noncontributory - Tobacco Use Smoking Status *Q: Unknown Ever Smoked Second Hand Smoke Exposure: No - Caffeine Use Caffeine Use: Reports: None Other Caffeine Use: unknown Caffeine Use Comment: unable to assess - Alcohol Use Days Per Week of Alcohol Use: 7 Number of Drinks Per Day: 3 Total Drinks Per Week: 21 - Recreational Drug Use Recreational Drug Use: No Recreational Drug Type: Reports: Other (see below) Other Recreational Drug Type: pt denies, unknown ED ROS GENERAL - Review of Systems Review Of Systems: Unable To Obtain (What limited information I do have is from her ) - Physical Exam Exam: See Below Exam Limited By: Altered Mental Status General Appearance: Obtunded, Other (Patient breathing on arrival to ED with no apparent airway difficulty, totally unresponsive verbally and to painful stimuli ) Eye Exam: Bilateral Eye: PERRL Ears: Normal External Exam Nose: Normal Inspection Throat/Mouth: Normal Inspection, Other Head Exam: Atraumatic (No evidence of intraoral injury) Neck: Supple, Full Range of Motion Respiratory/Chest: No Respiratory Distress, Lungs Clear, Normal Breath Sounds, No Accessory Muscle Use Cardiovascular: Regular Rate, Rhythm GI/Abdominal: Soft, Non-Tender Neuro Exam (Abbreviated): Unresponsive Extremities: Other (No evidence of upper or lower extremity injury, one area of mild bruising right forearm, otherwise no needle tracks visible) Skin Exam: Warm, Dry, Normal Color EKG INTERPRETATION EKG Date: 06/01/17 Rhythm: NSR [place]: Normal QRS: Normal ST-T: Other (T-wave inversions leads 3 and aVF) Course - Vital Signs Last Recorded V/S: Last Vital Signs Temp 95.1 F L 06/01/17 09:47 Pulse 83 06/01/17 09:10 Resp 16 06/01/17 09:10 BP 83/56 L 06/01/17 09:10 Pulse Ox 96 06/01/17 09:10 - Orders/Labs/Meds Orders: Active Orders 24 hr Category Date Time Status EKG 12 Lead [EKG Documentation Completion] [RC] STAT Care 06/01/17 09:10 Active Joseph Catheter Insertion [Insert Urinary Catheter] [OM. Care 06/01/17 11:45 Ordered PC] Q24H Insert Joseph Catheter [Insert Urinary Catheter] [OM.PC] Care 06/01/17 09:25 Ordered Stat POC Glucose [Blood Glucose Check, Bedside] [RC] ONETIME Care 06/01/17 09:25 Active Peripheral IV Care [RC] . DIRECTED Care 06/01/17 09:11 Active Peripheral IV Care [RC] . DIRECTED Care 06/01/17 09:12 Active Urinary Catheter Assessment [RC] ASDIRECTED Care 06/01/17 09:25 Active Urinary Catheter Assessment [RC] ASDIRECTED Care 06/01/17 11:39 Active Peripheral IV Insertion Adult [OM.PC] Stat Oth 06/01/17 09:11 Ordered Peripheral IV Insertion Adult [OM.PC] Stat Ot 06/01/17 09:12 Ordered Labs: Laboratory Tests 06/01/17 06/01/17 06/01/17 Range/Units 09:21 09:25 09:25 WBC 2.21 L* (3.98-10.04) K/mm3 RBC 3.29 L (3.98-5.22) M/mm3 Hgb 11.2 (11.2-15.7) gm/L Hct 31.8 L (34.1-44.9) % MCV 96.7 H (79.4-94.8) fl MCH 34.0 H (25.6-32.2) pg MCHC 35.2 (32.2-35.5) g/dl RDW Std Deviation 46.2 (36.4-46.3) fL Plt Count 132 L (182-369) K/mm3 MPV 9.7 (9.4-12.3) fl Neut % (Auto) 70.2 (34.0-71.1) % Lymph % (Auto) 23.5 (19.3-51.7) % Tripp % (Auto) 4.5 L (4.7-12.5) % Eos % (Auto) 0.9 (0.7-5.8) Baso % (Auto) 0.9 (0.1-1.2) % Neut # (Auto) 1.55 L (1.56-6.13) K/mm3 Lymph # (Auto) 0.52 L (1.18-3.74) K/mm3 Tripp # (Auto) 0.10 L (0.24-0.36) K/mm3 Eos # (Auto) 0.02 L (0.04-0.36) K/mm3 Baso # (Auto) 0.02 (0.01-0.08) K/mm3 Manual Slide Review Abnormal smear Puncture Site ABG pH (7.35-7.45) ABG pCO2 (35.0-45.0) mmHg ABG pO2 (80.0-100.0) mmHg ABG HCO3 (22.0-26.0) meq/L ABG O2 Saturation (96.0-97.0) % ABG Base Excess (-2-2.0) Burt Test O2 Delivery Device Oxygen Flow Rate FiO2 (21.00-100.00) % Sodium (136-145) mEq/L Potassium (3.5-5.1) mEq/L Chloride (98-107) mEq/L Carbon Dioxide (21-32) mEq/L Anion Gap (5-15) BUN (7-18) mg/dL Creatinine (0.55-1.02) mg/dL Est Cr Clr Drug Dosing Estimated GFR (MDRD) (>60) mL/min BUN/Creatinine Ratio (14-18) Glucose (74-106) mg/dL POC Glucose 295 H (70-105) mg/dL Lactic Acid (0.4-2.0) mmol/L Calcium (8.5-10.1) mg/dL Magnesium (1.8-2.4) mg/dl Total Bilirubin (0.2-1.0) mg/dL AST (15-37) U/L ALT (14-59) U/L Alkaline Phosphatase (46-116) U/L Total Protein (6.4-8.2) g/dl Albumin (3.4-5.0) g/dl Globulin gm/dL Albumin/Globulin Ratio (1-2) Urine Color (Yellow) Urine Appearance (Clear) Urine pH (5.0-8.0) Ur Specific [place] (1.005-1.030) Urine Protein (Negative) Urine Glucose (UA) (Negative) Urine Ketones (Negative) Urine Occult Blood (Negative) Urine Nitrite (Negative) Urine Bilirubin (Negative) Urine Urobilinogen (0.2-1.0) Ur Leukocyte Esterase (Negative) Urine RBC (0-5) /hpf Urine WBC (0-5) /hpf Ur Epithelial Cells (0-5) /hpf Urine Bacteria (FEW) /hpf Urine Mucus (FEW) /hpf Salicylates (2.8-20) mg/dL Urine Opiates Screen Negative (NEGATIVE) Ur Buprenorphine Scrn Negative (NEGATIVE) Ur Oxycodone Screen Negative (NEGATIVE) Urine Methadone Screen Negative (NEGATIVE) Ur Propoxyphene Screen Negative (NEGATIVE) Acetaminophen (10-30) ug/mL Ur Barbiturates Screen Negative (NEGATIVE) Ur Tricyclics Screen Negative (NEGATIVE) Ur Phencyclidine Scrn Negative (NEGATIVE) Ur Amphetamine Screen Negative (NEGATIVE) U Methamphetamines Scrn Negative (NEGATIVE) U Benzodiazepines Scrn Presumptive positive H (NEGATIVE) U Cocaine Metab Screen Negative (NEGATIVE) U Marijuana (THC) Screen Negative (NEGATIVE) Ethyl Alcohol (0.00) gm% 06/01/17 06/01/17 06/01/17 Range/Units 09:25 09:25 09:25 WBC (3.98-10.04) K/mm3 RBC (3.98-5.22) M/mm3 Hgb (11.2-15.7) gm/L Hct (34.1-44.9) % MCV (79.4-94.8) fl MCH (25.6-32.2) pg MCHC (32.2-35.5) g/dl RDW Std Deviation (36.4-46.3) fL Plt Count (182-369) K/mm3 MPV (9.4-12.3) fl Neut % (Auto) (34.0-71.1) % Lymph % (Auto) (19.3-51.7) % Tripp % (Auto) (4.7-12.5) % Eos % (Auto) (0.7-5.8) Baso % (Auto) (0.1-1.2) % Neut # (Auto) (1.56-6.13) K/mm3 Lymph # (Auto) (1.18-3.74) K/mm3 Tripp # (Auto) (0.24-0.36) K/mm3 Eos # (Auto) (0.04-0.36) K/mm3 Baso # (Auto) (0.01-0.08) K/mm3 Manual Slide Review Puncture Site ABG pH (7.35-7.45) ABG pCO2 (35.0-45.0) mmHg ABG pO2 (80.0-100.0) mmHg ABG HCO3 (22.0-26.0) meq/L ABG O2 Saturation (96.0-97.0) % ABG Base Excess (-2-2.0) Burt Test O2 Delivery Device Oxygen Flow Rate FiO2 (21.00-100.00) % Sodium 138 (136-145) mEq/L Potassium 4.0 (3.5-5.1) mEq/L Chloride 104 (98-107) mEq/L Carbon Dioxide 18 L (21-32) mEq/L Anion Gap 20.0 H (5-15) BUN 18 (7-18) mg/dL Creatinine 1.5 H (0.55-1.02) mg/dL Est Cr Clr Drug Dosing TNP Estimated GFR (MDRD) 36 (>60) mL/min BUN/Creatinine Ratio 12.0 L (14-18) Glucose 301 H (74-106) mg/dL POC Glucose (70-105) mg/dL Lactic Acid (0.4-2.0) mmol/L Calcium 8.4 L (8.5-10.1) mg/dL Magnesium 1.4 L (1.8-2.4) mg/dl Total Bilirubin 0.4 (0.2-1.0) mg/dL AST 22 (15-37) U/L ALT 36 (14-59) U/L Alkaline Phosphatase 88 (46-116) U/L Total Protein 6.1 L (6.4-8.2) g/dl Albumin 3.1 L (3.4-5.0) g/dl Globulin 3.0 gm/dL Albumin/Globulin Ratio 1.0 (1-2) Urine Color (Yellow) Urine Appearance (Clear) Urine pH (5.0-8.0) Ur Specific [place] (1.005-1.030) Urine Protein (Negative) Urine Glucose (UA) (Negative) Urine Ketones (Negative) Urine Occult Blood (Negative) Urine Nitrite (Negative) Urine Bilirubin (Negative) Urine Urobilinogen (0.2-1.0) Ur Leukocyte Esterase (Negative) Urine RBC (0-5) /hpf Urine WBC (0-5) /hpf Ur Epithelial Cells (0-5) /hpf Urine Bacteria (FEW) /hpf Urine Mucus (FEW) /hpf Salicylates 0.6 L (2.8-20) mg/dL Urine Opiates Screen (NEGATIVE) Ur Buprenorphine Scrn (NEGATIVE) Ur Oxycodone Screen (NEGATIVE) Urine Methadone Screen (NEGATIVE) Ur Propoxyphene Screen (NEGATIVE) Acetaminophen 0 L (10-30) ug/mL Ur Barbiturates Screen (NEGATIVE) Ur Tricyclics Screen (NEGATIVE) Ur Phencyclidine Scrn (NEGATIVE) Ur Amphetamine Screen (NEGATIVE) U Methamphetamines Scrn (NEGATIVE) U Benzodiazepines Scrn (NEGATIVE) U Cocaine Metab Screen (NEGATIVE) U Marijuana (THC) Screen (NEGATIVE) Ethyl Alcohol 0.10 (0.00) gm% 06/01/17 06/01/17 06/01/17 Range/Units 09:25 09:51 11:39 WBC (3.98-10.04) K/mm3 RBC (3.98-5.22) M/mm3 Hgb (11.2-15.7) gm/L Hct (34.1-44.9) % MCV (79.4-94.8) fl MCH (25.6-32.2) pg MCHC (32.2-35.5) g/dl RDW Std Deviation (36.4-46.3) fL Plt Count (182-369) K/mm3 MPV (9.4-12.3) fl Neut % (Auto) (34.0-71.1) % Lymph % (Auto) (19.3-51.7) % Tripp % (Auto) (4.7-12.5) % Eos % (Auto) (0.7-5.8) Baso % (Auto) (0.1-1.2) % Neut # (Auto) (1.56-6.13) K/mm3 Lymph # (Auto) (1.18-3.74) K/mm3 Tripp # (Auto) (0.24-0.36) K/mm3 Eos # (Auto) (0.04-0.36) K/mm3 Baso # (Auto) (0.01-0.08) K/mm3 Manual Slide Review Puncture Site Lt radial ABG pH 7.22 L (7.35-7.45) ABG pCO2 44.4 (35.0-45.0) mmHg ABG pO2 84.0 (80.0-100.0) mmHg ABG HCO3 17.4 L (22.0-26.0) meq/L ABG O2 Saturation 94.7 L (96.0-97.0) % ABG Base Excess -9.4 L (-2-2.0) Burt Test Positive O2 Delivery Device Nasal cannula Oxygen Flow Rate 2.0 FiO2 0.00 L (21.00-100.00) % Sodium (136-145) mEq/L Potassium (3.5-5.1) mEq/L Chloride (98-107) mEq/L Carbon Dioxide (21-32) mEq/L Anion Gap (5-15) BUN (7-18) mg/dL Creatinine (0.55-1.02) mg/dL Est Cr Clr Drug Dosing Estimated GFR (MDRD) (>60) mL/min BUN/Creatinine Ratio (14-18) Glucose (74-106) mg/dL POC Glucose (70-105) mg/dL Lactic Acid 3.7 H (0.4-2.0) mmol/L Calcium (8.5-10.1) mg/dL Magnesium (1.8-2.4) mg/dl Total Bilirubin (0.2-1.0) mg/dL AST (15-37) U/L ALT (14-59) U/L Alkaline Phosphatase (46-116) U/L Total Protein (6.4-8.2) g/dl Albumin (3.4-5.0) g/dl Globulin gm/dL Albumin/Globulin Ratio (1-2) Urine Color Yellow (Yellow) Urine Appearance Clear (Clear) Urine pH 6.5 (5.0-8.0) Ur Specific [place] 1.010 (1.005-1.030) Urine Protein 1+ H (Negative) Urine Glucose (UA) Negative (Negative) Urine Ketones Negative (Negative) Urine Occult Blood Trace-lysed H (Negative) Urine Nitrite Negative (Negative) Urine Bilirubin Negative (Negative) Urine Urobilinogen 0.2 (0.2-1.0) Ur Leukocyte Esterase Negative (Negative) Urine RBC 5-10 H (0-5) /hpf Urine WBC 0-5 (0-5) /hpf Ur Epithelial Cells 0-5 (0-5) /hpf Urine Bacteria Few (FEW) /hpf Urine Mucus Not seen (FEW) /hpf Salicylates (2.8-20) mg/dL Urine Opiates Screen (NEGATIVE) Ur Buprenorphine Scrn (NEGATIVE) Ur Oxycodone Screen (NEGATIVE) Urine Methadone Screen (NEGATIVE) Ur Propoxyphene Screen (NEGATIVE) Acetaminophen (10-30) ug/mL Ur Barbiturates Screen (NEGATIVE) Ur Tricyclics Screen (NEGATIVE) Ur Phencyclidine Scrn (NEGATIVE) Ur Amphetamine Screen (NEGATIVE) U Methamphetamines Scrn (NEGATIVE) U Benzodiazepines Scrn (NEGATIVE) U Cocaine Metab Screen (NEGATIVE) U Marijuana (THC) Screen (NEGATIVE) Ethyl Alcohol (0.00) gm% Meds: Medications Discontinued Medications Generic Name Dose Route Start Last Admin Trade Name Freq PRN Reason Stop Dose Admin Sodium Chloride 1,000 mls @ 150 mls/hr 06/01/17 09:15 06/01/17 10:25 Normal Saline IV 999 mls/hr ONETIME MAGO Administration Sodium Chloride Confirm 06/01/17 10:28 06/01/17 10:31 Normal Saline Administered 06/01/17 10:29 Not Given Dose 1,000 mls @ as directed .ROUTE .STK-MED ONE Magnesium Sulfate 2 gm/ Premix 50 mls @ 25 mls/hr 06/01/17 11:16 06/01/17 11: 21 IV 06/01/17 13:15 25 mls/hr ONETIME ONE Administration Magnesium Sulfate Confirm 06/01/17 11:24 Magnesium Sulfate 2 Gm In Water 50 Ml Administered 06/01/17 11:25 Dose 50 mls @ as directed .ROUTE .STK-MED ONE Naloxone HCl Confirm 06/01/17 09:15 06/01/17 10:31 Narcan Administered 06/01/17 09:16 Not Given Dose 2 mg .ROUTE .STK-MED ONE Naloxone HCl 2 mg 06/01/17 09:12 06/01/17 09:18 Narcan IVPUSH 06/01/17 09:13 2 mg ONETIME ONE Administration Sodium Chloride 10 ml 06/01/17 09:11 06/01/17 10:06 Saline Flush FLUSH 10 ml ASDIRECTED PRN Administration Keep Vein Open Sodium Chloride 10 ml 06/01/17 09:12 Saline Flush FLUSH ASDIRECTED PRN Keep Vein Open - Re-Assessments/Exams Free Text/Narrative Re-Assessment/Exam: 06/01/17 11:35. Upon arrival we maintained her at 2 L nasal cannula. With that sats ahve been running in the upper 90s, currently 100%. No wheezing stridor or other evidence of airway or respiratory distress. Labs have come back as documented. Blood alcohol 0.1. Tox screen positive for benzodiazepines, negative for everything else. Moderate dehydration with anion gap of around 20, bicarbonate 18. We did give 2 L of IV fluid on arrival with her initial blood pressure in the mid 80s. With that her blood pressures come up to the 100-110 range systolic. Heart rate continues around 85. She continues to be totally unresponsive verbally as well as to any type of touch or painful stimuli. We are still on ICU diversion. I've been told there is no plan for discharge at this time for any of the current ICU patients. Therefore she will be transferred to [facility]. I discussed this with her who is present and also with Dr. Chowdary, [facility] who does accept patient in transfer. Departure - Departure Time of Disposition: 11:05 Disposition: DC/Tfer to Acute Hospital 02 Condition: Fair Clinical Impression: Dehydration Drug overdose Qualifiers: Encounter type: initial encounter Injury intent: undetermined intent Qualified Code(s): T50.904A - Poisoning by unspecified drugs, medicaments and biological substances, undetermined, initial encounter Altered mental status Qualifiers: Altered mental status type: somnolence Qualified Code(s): R40.0 - Somnolence Alcohol intoxication Qualifiers: Complication of substance-induced condition: uncomplicated Qualified Code(s): F10.920 - Alcohol use, unspecified with intoxication, uncomplicated - Discharge Information Referrals: Hema Negrete MD [Primary Care Provider] - Forms: ED Department Discharge - My Orders Last 24 Hours: My Active Orders 06/01/17 09:10 EKG 12 Lead [EKG Documentation Completion] [] STAT 06/01/17 09:11 Peripheral IV Care [RC] . DIRECTED Peripheral IV Insertion Adult [OM.PC] Stat 06/01/17 09:12 Peripheral IV Care [] . DIRECTED Peripheral IV Insertion Adult [OM.PC] Stat 06/01/17 09:25 Insert Joseph Catheter [Insert Urinary Catheter] [OM.PC] Stat POC Glucose [Blood Glucose Check, Bedside] [] ONETIME Urinary Catheter Assessment [] ASDIRECTED 06/01/17 11:39 Urinary Catheter Assessment [] ASDIRECTED 06/01/17 11:45 Joseph Catheter Insertion [Insert Urinary Catheter] [OM.PC] Q24H - Assessment/Plan Last 24 Hours: My Active Orders 06/01/17 09:10 EKG 12 Lead [EKG Documentation Completion] [RC] STAT 06/01/17 09:11 Peripheral IV Care [RC] . DIRECTED Peripheral IV Insertion Adult [OM.PC] Stat 06/01/17 09:12 Peripheral IV Care [RC] . DIRECTED Peripheral IV Insertion Adult [OM.PC] Stat 06/01/17 09:25 Insert Joseph Catheter [Insert Urinary Catheter] [OM.PC] Stat POC Glucose [Blood Glucose Check, Bedside] [RC] ONETIME Urinary Catheter Assessment [RC] ASDIRECTED 06/01/17 11:39 Urinary Catheter Assessment [RC] ASDIRECTED 06/01/17 11:45 Joseph Catheter Insertion [Insert Urinary Catheter] [OM.PC] Q24H
[2017-06-01] MEDS ORDERED: Magnesium Sulfate/Water 50 ML ONE (11:24)
== END 2017-06-01 12:05 ==
LOC: JD.ED 08:58
DX: T65.94XA Toxic effect of unspecified substance, undetermined, initial encounter (principal); E86.0 Dehydration; R40.0 Somnolence; F10.920 Alcohol use, unspecified with intoxication, uncomplicated; E10.9 Type 1 diabetes mellitus without complications; I10 Essential (primary) hypertension; K21.9 Gastro-esophageal reflux disease without esophagitis; J45.909 Unspecified asthma, uncomplicated; Z88.7 Allergy status to serum and vaccine; Z79.82 Long term (current) use of aspirin; Z79.899 Other long term (current) drug therapy
CPT/HCPCS: 36415; 36600; 51702; 70450; 80053; 80306; 81001; 82803; 82962; 83605; 83735; 85025; 93005; 96361; 96365; 96375; 99285; G0480; J2310; J7040; J7050; 93010; J3475

== ENCOUNTER 2018-05-27 05:47 | Inpatient (IN) | payer BC ==
[2018-05-27] MEDS ORDERED: Midazolam 5 MG/ML 5 ML MDV ONE (05:50)
[2018-05-27] MEDS ORDERED: Succinylcholine 200 MG/10 ML MDV ONE (05:50)
[2018-05-27] MEDS ORDERED: Midazolam 1 MG/ML 5 ML SDV ONE (05:50)
[2018-05-27] MEDS ORDERED: Dextrose 5%-0.9% NaCl 1,000 ML ONE ×3 (05:54→12:32)
[2018-05-27] MEDS ORDERED: 50% Dextrose in Water 50 ML Syringe ONE ×2 (06:22→13:06)
--- NOTE | 2018-05-27 06:35 | EDM.PDOC ---
ED HPI GENERAL MEDICAL PROBLEM - General Chief Complaint: Neuro Symptoms/Deficits Stated Complaint: [facility] Time Seen by Provider: 05/27/18 06:37 Source of Information: Reports: EMS, Family (Social history was supplied to the EMS staff through the .) History Limitations: Reports: Other (A she arrives completely) - History of Present Illness INITIAL COMMENTS - FREE TEXT/NARRATIVE: Paramedics warned us that this patient was coming in unresponsive. Medical alert was called at 0540 hrs. She was attended immediately by all staff in the ED she was found to be unresponsive. History suggests she has taken a large amount of Lantus insulin and possibly multiple other drugs including Benadryl and effort to end her life. Apparently she has done this in the past. This is according to her who provided information to the procedures rn staff. He indicated that she probably did this around midnight as he could hear her stirring around the house When he awoke and checked on her head 0530 hours he called 911 because she was called and barely breathing. Completely unresponsive to physical and verbal stimuli. This is how she was when she arrived in the ED as well. Paramedics indicate that when they checked her blood sugar it would not read at all. She therefore received 2 A of D50 percent once an IV was established. She perhaps stirred a little bit after this but she never regained consciousness in terms of opening her eyes are ever becoming verbal. She remained unresponsive when she was in the ED. Making occasional gasping respirations which were insufficient to support her respiratory function. She therefore required immediate intubation. Succinylcholine 120 mg was given with 3 mg of Versed to facilitate the procedure although she didn't appear to have an intact gag reflex. She was noted to have green paint or what appears to be green paint in her right naris. Unclear if she was huffing/snorting some form of medication or hallucinogen. Initial blood sugar here was 138. Shortly thereafter i.e. 10 minutes it was down to 90. IV was started D5 normal saline at open. Blood sugars will be checked every 10-15 minutes. Patient was intubated with a 7.0 ET tube to 21 cm of the corner of her right lip. Good air entry to both lung capone. Ultimate difficulties encountered in terms of passing a nasogastric tube but was finally successful with deflation of the tube transiently. Patient is currently on a ventilator with respiratory rate of 14/m an FiO2 of 80% and rate of 14/m. 5 PEEP. I'll volume is 550 mils. Onset: Unknown/Unsure Onset Date: 05/27/18 (Believes he last heard her up around midnight.) Duration: Hour(s): Location: Reports: Generalized (Rise in the ED completely unresponsive.) Quality: Reports: Other (Unresponsive.) Severity: Severe Improves with: Reports: None Worsens with: Reports: None Context: Reports: Other (Appears to have purposely taking an overdose of insulin and other medications in an effort to end her life.). 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 (see below) - Related Data Allergies Allergy/AdvReac Type Severity Reaction Status Date / Time Influenza Virus Vaccines Allergy Itching Verified 08/20/16 15:18 pneumococcal vaccine Allergy Redness Verified 08/20/16 15:18 Home Meds: Home Meds Iron 1 tab PO DAILY 07/28/16 [History] Aspirin 81 mg PO DAILY #30 tab.chew 07/31/16 [Rx] Albuterol [Ventolin HFA] 2 puff INH Q4H PRN 01/21/17 [History] Budesonide/Formoterol Fumarate [Symbicort 80-4.5 Mcg Inhaler] 2 puff IH BID [History] Benzocaine/Cetylpyrd/Menthol [Cepacol Sore Throat] 1 lozenge MUCMEM Q2HR PRN # 60 rusty 01/23/17 [Rx] FLUoxetine [PROzac] 20 mg PO DAILY #30 cap 01/23/17 [Rx] Folic Acid 1 mg PO DAILY #30 tablet 01/23/17 [Rx] HCTZ/Triamterene [Maxzide 50-75 MG] 1 each PO DAILY #30 tablet 01/23/17 [Rx] Insulin Detemir [Levemir] 10 unit SUBCUT BID #30 pen 01/23/17 [Rx] Lisinopril [Prinivil] 20 mg PO DAILY #30 tablet 01/23/17 [Rx] Pantoprazole [ProTONIX] 40 mg PO BIDAC #60 tab.cr 01/23/17 [Rx] QUEtiapine [SEROquel] 50 mg PO BEDTIME #30 tablet 01/23/17 [Rx] Temazepam [Restoril] 15 mg PO BEDTIME #30 cap 01/23/17 [Rx] Thiamine [Vitamin B-1] 100 mg PO DAILY #30 tablet 01/23/17 [Rx] Topiramate [Topamax] 25 mg PO BID #60 tablet 01/23/17 [Rx] Past Medical History HEENT History: Reports: Impaired Vision Other HEENT History: wear glasses Cardiovascular History: Reports: Hypertension Respiratory History: Reports: Asthma Gastrointestinal History: Reports: GERD, Pancreatitis Genitourinary History: Reports: UTI, Recurrent 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: Reports: Fibroids, Other (See Below) Other 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: hysterectomy with overies intact Musculoskeletal History: Reports: Other (See Below) Other Musculoskeletal History: pt takes lyrica for pain Neurological History: Reports: None Psychiatric History: Reports: Depression, Suicide Attempt (Apparently has had multiple suicide attempts in the past one previous highway of taking an excess amount of insulin.) Endocrine/Metabolic History: Reports: Diabetes, Type I Other Endocrine/Metabolic History: recent weight gain Hematologic History: Reports: Iron Deficiency Other Oncologic History: colon polups Dermatologic History: Reports: None - Infectious Disease History Infectious Disease History: Reports: Chicken Pox - Past Surgical History Cardiovascular Surgical History: Reports: None GI Surgical History: Reports: Appendectomy, Bariatric Procedure, Cholecystectomy Female Surgical History: Reports: Hysterectomy, Other (See Below) Neurological Surgical History: Reports: None Dermatological Surgical History: Reports: Other (See Below) Social & Family History - Family History Family Medical History: Noncontributory - Caffeine Use Caffeine Use: Reports: None Other Caffeine Use: unknown Caffeine Use Comment: unable to assess - Living Situation & Occupation Living situation: Reports: Occupation: Unemployed ED ROS GENERAL - Review of Systems Review Of Systems: Unable To Obtain (Patient arrives completely unresponsive to verbal and physical stimuli.) ED EXAM, NEURO - Physical Exam Exam: See Below Exam Limited By: Altered Mental Status (Gasping shallow respirations at 68/m arrives in the ED completely obtunded and unresponsive to physical and verbal stimuli.) General Appearance: Obtunded, Other (Spine Dharmesh distress with gasping respirations at 6-7 breaths per minute insufficient to support respirations.) Eye Exam: Bilateral Eye: Normal Inspection, PERRL (Pupils are very sluggish to light prior to paralysis with succinylcholine.) Nose: Other (Reading pain-like substance in the right anterior naris that appears to been snorted. Unclear what this is) Throat/Mouth: Normal Inspection, Normal Lips, Normal Teeth, Normal Oropharynx, Other (Oropharynx is clear except for a menthol green like firm in the oropharynx) Head Exam: Atraumatic, Normocephalic, Other Neck: Normal Inspection, Supple (No overt signs of head or facial trauma). No: Lymphadenopathy (L), Lymphadenopathy (R) Respiratory/Chest: Respiratory Distress (Gasping respirations take at 6-7/m shallow and insufficient to support respiration.), Rhonchi (There are rhonchi both upper lobes) Cardiovascular: Normal Peripheral Pulses, Regular Rate, Rhythm, No Edema, No Gallop, No Murmur GI/Abdominal: Soft, Non-Tender (No bowel sounds identified.), No Organomegaly, No Abnormal Bruit, No Mass, Pelvis Stable, Abnormal Bowel Sounds, Other (Female) Exam: Normal External Exam Neurological: Other (Is completely unresponsive to physical and verbal stimuli. She is completely areflexic. Babinski's were both downgoing) DTR: 0: Bicep (R), Bicep (L), Tricep (R), Tricep (L), Patella (R), Patella (L), Achilles (R), Achilles (L) Back Exam: Normal Inspection Extremities: Normal Inspection, Normal Range of Motion, Non-Tender, No Pedal Edema Skin Exam: Cool EKG INTERPRETATION EKG Date: 05/27/18 Time: 07:13 Rhythm: Other (Sinus tachycardia) Rate (Beats/Min): 106 [place]: Normal P-Wave: Present (With borderline first-degree AV block) QRS: Other (Near Q-wave V1 and V2. Initial poor R-wave progression. Cannot rule out old anteroseptal myocardial infarction. There are Q waves also in II, III, and F aVF suggestive of an old inferior wall myocardial infarction.) ST-T: Normal QT: Prolonged EKG Interpretation Comments: Abnormal ECG Course - Vital Signs Last Recorded V/S: Last Vital Signs Temp 36.0 C 05/27/18 05:47 Pulse 125 H 05/27/18 05:47 Resp 14 05/27/18 05:47 BP 203/132 H 05/27/18 05:47 Pulse Ox 90 L 02/19/19 05:47 - Orders/Labs/Meds Orders: Active Orders 24 hr Category Date Time Status EKG Documentation Completion [RC] STAT Care 05/27/18 06:28 Active Insert Joseph Catheter [Insert Urinary Catheter] [OM.PC] Care 05/27/18 06:30 Ordered Q24H Urinary Catheter Assessment [RC] ASDIRECTED Care 05/27/18 06:25 Active ABG [BLOOD GAS ARTERIAL] [BG] Stat Lab 05/27/18 06:28 Ordered BLOOD GAS ARTERIAL [BG] Stat Lab 05/27/18 06:29 Received COOXIMETRY [BG] Stat Lab 05/27/18 06:29 Received INR,PT,PROTHROMBIN TIME [COAG] Stat Lab 05/27/18 05:55 Received PTT,PARTIAL THROMBOPLSTIN TIME [COAG] Stat Lab 05/27/18 05:55 Received Labs: Laboratory Tests 05/27/18 05/27/18 05/27/18 Range/Units 05:45 05:50 05:50 WBC 6.86 (3.98-10.04) K/mm3 RBC 3.48 L (3.98-5.22) M/mm3 Hgb 12.5 (11.2-15.7) gm/L Hct 35.7 (34.1-44.9) % MCV 102.6 H (79.4-94.8) fl MCH 35.9 H (25.6-32.2) pg MCHC 35.0 (32.2-35.5) g/dl RDW Std Deviation 43.0 (36.4-46.3) fL Plt Count 187 (182-369) K/mm3 MPV 9.7 (9.4-12.3) fl Neut % (Auto) 68.5 (34.0-71.1) % Lymph % (Auto) 25.5 (19.3-51.7) % [place] % (Auto) 5.5 (4.7-12.5) % Eos % (Auto) 0.1 L (0.7-5.8) Baso % (Auto) 0.3 (0.1-1.2) % Neut # (Auto) 4.69 (1.56-6.13) K/mm3 Lymph # (Auto) 1.75 (1.18-3.74) K/mm3 [place] # (Auto) 0.38 H (0.24-0.36) K/mm3 Eos # (Auto) 0.01 L (0.04-0.36) K/mm3 Baso # (Auto) 0.02 (0.01-0.08) K/mm3 Sodium 136 (136-145) mEq/L Potassium 3.6 (3.5-5.1) mEq/L Chloride 104 (98-107) mEq/L Carbon Dioxide 24 (21-32) mEq/L Anion Gap 11.6 (5-15) BUN 19 H (7-18) mg/dL Creatinine 1.2 H (0.55-1.02) mg/dL Est Cr Clr Drug Dosing TNP Estimated GFR (MDRD) 47 (>60) mL/min BUN/Creatinine Ratio 15.8 (14-18) Glucose 105 (74-106) mg/dL POC Glucose 128 H (70-105) mg/dL Lactic Acid (0.4-2.0) mmol/L Calcium 8.4 L (8.5-10.1) mg/dL Magnesium (1.8-2.4) mg/dl Total Bilirubin 0.4 (0.2-1.0) mg/dL AST 270 H (15-37) U/L ALT 86 H (14-59) U/L Alkaline Phosphatase 109 (46-116) U/L CK-MB (CK-2) (0-3.6) ng/ml Troponin I (0.00-0.056) ng/mL C-Reactive Protein (<1.0) mg/dL NT-Pro-B Natriuret Pep (0-125) pg/mL Total Protein 6.9 (6.4-8.2) g/dl Albumin 3.2 L (3.4-5.0) g/dl Globulin 3.7 gm/dL Albumin/Globulin Ratio 0.9 L (1-2) Salicylates (2.8-20) mg/dL Urine Opiates Screen (WERCUX=911) Ur Buprenorphine Scrn (CUTOFF=10) Ur Oxycodone Screen (UZC9JR=514) Urine Methadone Screen (MVOKCI=725) Ur Propoxyphene Screen (GABOPG=817) Acetaminophen (10-30) ug/mL Ur Barbiturates Screen (QKAWPZ=494) Ur Tricyclics Screen (EQGKHB=985) Ur Phencyclidine Scrn (CUTOFF=25) Ur Amphetamine Screen (GLUOCQ=444) U Methamphetamines Scrn (POEUVI=824) U Benzodiazepines Scrn (AJJDGK=283) U Cocaine Metab Screen (CTJXGM=962) U Marijuana (THC) Screen (CUTOFF=50) Ethyl Alcohol 0.18 (0.00) gm% 05/27/18 05/27/18 05/27/18 Range/Units 05:50 05:50 05:50 WBC (3.98-10.04) K/mm3 RBC (3.98-5.22) M/mm3 Hgb (11.2-15.7) gm/L Hct (34.1-44.9) % MCV (79.4-94.8) fl MCH (25.6-32.2) pg MCHC (32.2-35.5) g/dl RDW Std Deviation (36.4-46.3) fL Plt Count (182-369) K/mm3 MPV (9.4-12.3) fl Neut % (Auto) (34.0-71.1) % Lymph % (Auto) (19.3-51.7) % [place] % (Auto) (4.7-12.5) % Eos % (Auto) (0.7-5.8) Baso % (Auto) (0.1-1.2) % Neut # (Auto) (1.56-6.13) K/mm3 Lymph # (Auto) (1.18-3.74) K/mm3 [place] # (Auto) (0.24-0.36) K/mm3 Eos # (Auto) (0.04-0.36) K/mm3 Baso # (Auto) (0.01-0.08) K/mm3 Sodium (136-145) mEq/L Potassium (3.5-5.1) mEq/L Chloride (98-107) mEq/L Carbon Dioxide (21-32) mEq/L Anion Gap (5-15) BUN (7-18) mg/dL Creatinine (0.55-1.02) mg/dL Est Cr Clr Drug Dosing Estimated GFR (MDRD) (>60) mL/min BUN/Creatinine Ratio (14-18) Glucose (74-106) mg/dL POC Glucose (70-105) mg/dL Lactic Acid 2.1 H (0.4-2.0) mmol/L Calcium (8.5-10.1) mg/dL Magnesium 1.6 L (1.8-2.4) mg/dl Total Bilirubin (0.2-1.0) mg/dL AST (15-37) U/L ALT (14-59) U/L Alkaline Phosphatase (46-116) U/L CK-MB (CK-2) (0-3.6) ng/ml Troponin I (0.00-0.056) ng/mL C-Reactive Protein < 0.2 (<1.0) mg/dL NT-Pro-B Natriuret Pep 859 H (0-125) pg/mL Total Protein (6.4-8.2) g/dl Albumin (3.4-5.0) g/dl Globulin gm/dL Albumin/Globulin Ratio (1-2) Salicylates (2.8-20) mg/dL Urine Opiates Screen (IPHWGI=599) Ur Buprenorphine Scrn (CUTOFF=10) Ur Oxycodone Screen (PPC0JJ=661) Urine Methadone Screen (ZXYQDZ=130) Ur Propoxyphene Screen (LGALFM=925) Acetaminophen (10-30) ug/mL Ur Barbiturates Screen (ZOSJEQ=399) Ur Tricyclics Screen (XBHWLS=177) Ur Phencyclidine Scrn (CUTOFF=25) Ur Amphetamine Screen (COEMFG=910) U Methamphetamines Scrn (JUWJLL=646) U Benzodiazepines Scrn (JZHMRC=890) U Cocaine Metab Screen (WMCZUF=922) U Marijuana (THC) Screen (CUTOFF=50) Ethyl Alcohol (0.00) gm% 05/27/18 05/27/18 05/27/18 Range/Units 05:54 05:55 05:55 WBC (3.98-10.04) K/mm3 RBC (3.98-5.22) M/mm3 Hgb (11.2-15.7) gm/L Hct (34.1-44.9) % MCV (79.4-94.8) fl MCH (25.6-32.2) pg MCHC (32.2-35.5) g/dl RDW Std Deviation (36.4-46.3) fL Plt Count (182-369) K/mm3 MPV (9.4-12.3) fl Neut % (Auto) (34.0-71.1) % Lymph % (Auto) (19.3-51.7) % [place] % (Auto) (4.7-12.5) % Eos % (Auto) (0.7-5.8) Baso % (Auto) (0.1-1.2) % Neut # (Auto) (1.56-6.13) K/mm3 Lymph # (Auto) (1.18-3.74) K/mm3 [place] # (Auto) (0.24-0.36) K/mm3 Eos # (Auto) (0.04-0.36) K/mm3 Baso # (Auto) (0.01-0.08) K/mm3 Sodium (136-145) mEq/L Potassium (3.5-5.1) mEq/L Chloride (98-107) mEq/L Carbon Dioxide (21-32) mEq/L Anion Gap (5-15) BUN (7-18) mg/dL Creatinine (0.55-1.02) mg/dL Est Cr Clr Drug Dosing Estimated GFR (MDRD) (>60) mL/min BUN/Creatinine Ratio (14-18) Glucose (74-106) mg/dL POC Glucose 91 (70-105) mg/dL Lactic Acid (0.4-2.0) mmol/L Calcium (8.5-10.1) mg/dL Magnesium (1.8-2.4) mg/dl Total Bilirubin (0.2-1.0) mg/dL AST (15-37) U/L ALT (14-59) U/L Alkaline Phosphatase (46-116) U/L CK-MB (CK-2) 3.1 (0-3.6) ng/ml Troponin I 0.083 H* (0.00-0.056) ng/mL C-Reactive Protein (<1.0) mg/dL NT-Pro-B Natriuret Pep (0-125) pg/mL Total Protein (6.4-8.2) g/dl Albumin (3.4-5.0) g/dl Globulin gm/dL Albumin/Globulin Ratio (1-2) Salicylates 0.4 L (2.8-20) mg/dL Urine Opiates Screen (JENNYG=257) Ur Buprenorphine Scrn (CUTOFF=10) Ur Oxycodone Screen (TAU1EV=270) Urine Methadone Screen (FTIYEI=182) Ur Propoxyphene Screen (VJMSQE=438) Acetaminophen 0 L (10-30) ug/mL Ur Barbiturates Screen (WDDIHI=706) Ur Tricyclics Screen (XCVFZV=006) Ur Phencyclidine Scrn (CUTOFF=25) Ur Amphetamine Screen (VALSKG=091) U Methamphetamines Scrn (YHAPKF=637) U Benzodiazepines Scrn (USAPDQ=262) U Cocaine Metab Screen (XDBLNK=409) U Marijuana (THC) Screen (CUTOFF=50) Ethyl Alcohol (0.00) gm% 05/27/18 05/27/18 05/27/18 Range/Units 06:06 06:20 06:21 WBC (3.98-10.04) K/mm3 RBC (3.98-5.22) M/mm3 Hgb (11.2-15.7) gm/L Hct (34.1-44.9) % MCV (79.4-94.8) fl MCH (25.6-32.2) pg MCHC (32.2-35.5) g/dl RDW Std Deviation (36.4-46.3) fL Plt Count (182-369) K/mm3 MPV (9.4-12.3) fl Neut % (Auto) (34.0-71.1) % Lymph % (Auto) (19.3-51.7) % [place] % (Auto) (4.7-12.5) % Eos % (Auto) (0.7-5.8) Baso % (Auto) (0.1-1.2) % Neut # (Auto) (1.56-6.13) K/mm3 Lymph # (Auto) (1.18-3.74) K/mm3 [place] # (Auto) (0.24-0.36) K/mm3 Eos # (Auto) (0.04-0.36) K/mm3 Baso # (Auto) (0.01-0.08) K/mm3 Sodium (136-145) mEq/L Potassium (3.5-5.1) mEq/L Chloride (98-107) mEq/L Carbon Dioxide (21-32) mEq/L Anion Gap (5-15) BUN (7-18) mg/dL Creatinine (0.55-1.02) mg/dL Est Cr Clr Drug Dosing Estimated GFR (MDRD) (>60) mL/min BUN/Creatinine Ratio (14-18) Glucose (74-106) mg/dL POC Glucose 138 H 82 (70-105) mg/dL Lactic Acid (0.4-2.0) mmol/L Calcium (8.5-10.1) mg/dL Magnesium (1.8-2.4) mg/dl Total Bilirubin (0.2-1.0) mg/dL AST (15-37) U/L ALT (14-59) U/L Alkaline Phosphatase (46-116) U/L CK-MB (CK-2) (0-3.6) ng/ml Troponin I (0.00-0.056) ng/mL C-Reactive Protein (<1.0) mg/dL NT-Pro-B Natriuret Pep (0-125) pg/mL Total Protein (6.4-8.2) g/dl Albumin (3.4-5.0) g/dl Globulin gm/dL Albumin/Globulin Ratio (1-2) Salicylates (2.8-20) mg/dL Urine Opiates Screen Negative (NYAVDV=267) Ur Buprenorphine Scrn Negative (CUTOFF=10) Ur Oxycodone Screen Negative (NDS7NU=447) Urine Methadone Screen Negative (GZGOMF=899) Ur Propoxyphene Screen Negative (STCKBH=990) Acetaminophen (10-30) ug/mL Ur Barbiturates Screen Negative (XINYLT=642) Ur Tricyclics Screen Negative (PCICZO=431) Ur Phencyclidine Scrn Negative (CUTOFF=25) Ur Amphetamine Screen Negative (VFZOUZ=834) U Methamphetamines Scrn Negative (QWGJOE=920) U Benzodiazepines Scrn Negative (NJTEGQ=013) U Cocaine Metab Screen Negative (ZDHLIJ=519) U Marijuana (THC) Screen Negative (CUTOFF=50) Ethyl Alcohol (0.00) gm% 05/27/18 05/27/18 05/27/18 Range/Units 06:35 06:51 07:06 WBC (3.98-10.04) K/mm3 RBC (3.98-5.22) M/mm3 Hgb (11.2-15.7) gm/L Hct (34.1-44.9) % MCV (79.4-94.8) fl MCH (25.6-32.2) pg MCHC (32.2-35.5) g/dl RDW Std Deviation (36.4-46.3) fL Plt Count (182-369) K/mm3 MPV (9.4-12.3) fl Neut % (Auto) (34.0-71.1) % Lymph % (Auto) (19.3-51.7) % [place] % (Auto) (4.7-12.5) % Eos % (Auto) (0.7-5.8) Baso % (Auto) (0.1-1.2) % Neut # (Auto) (1.56-6.13) K/mm3 Lymph # (Auto) (1.18-3.74) K/mm3 [place] # (Auto) (0.24-0.36) K/mm3 Eos # (Auto) (0.04-0.36) K/mm3 Baso # (Auto) (0.01-0.08) K/mm3 Sodium (136-145) mEq/L Potassium (3.5-5.1) mEq/L Chloride (98-107) mEq/L Carbon Dioxide (21-32) mEq/L Anion Gap (5-15) BUN (7-18) mg/dL Creatinine (0.55-1.02) mg/dL Est Cr Clr Drug Dosing Estimated GFR (MDRD) (>60) mL/min BUN/Creatinine Ratio (14-18) Glucose (74-106) mg/dL POC Glucose 170 H 225 H 285 H (70-105) mg/dL Lactic Acid (0.4-2.0) mmol/L Calcium (8.5-10.1) mg/dL Magnesium (1.8-2.4) mg/dl Total Bilirubin (0.2-1.0) mg/dL AST (15-37) U/L ALT (14-59) U/L Alkaline Phosphatase (46-116) U/L CK-MB (CK-2) (0-3.6) ng/ml Troponin I (0.00-0.056) ng/mL C-Reactive Protein (<1.0) mg/dL NT-Pro-B Natriuret Pep (0-125) pg/mL Total Protein (6.4-8.2) g/dl Albumin (3.4-5.0) g/dl Globulin gm/dL Albumin/Globulin Ratio (1-2) Salicylates (2.8-20) mg/dL Urine Opiates Screen (YWDPKF=107) Ur Buprenorphine Scrn (CUTOFF=10) Ur Oxycodone Screen (OBG5ES=901) Urine Methadone Screen (RBJMAX=191) Ur Propoxyphene Screen (VHVZNH=011) Acetaminophen (10-30) ug/mL Ur Barbiturates Screen (SPWYVD=524) Ur Tricyclics Screen (IIPQST=323) Ur Phencyclidine Scrn (CUTOFF=25) Ur Amphetamine Screen (OMGKGB=466) U Methamphetamines Scrn (ZRTBQR=661) U Benzodiazepines Scrn (PVSEDP=863) U Cocaine Metab Screen (NWFELG=524) U Marijuana (THC) Screen (CUTOFF=50) Ethyl Alcohol (0.00) gm% Meds: Medications Discontinued Medications Generic Name Dose Route Start Last Admin Trade Name Fabio PRN Reason Stop Dose Admin Dextrose/Water Confirm 05/27/18 06:22 Dextrose 50% In Water Administered 05/27/18 06:23 Dose 50 ml .ROUTE .STK-MED ONE Dextrose/Sodium Chloride Confirm 05/27/18 05:54 Dextrose 5%-Normal Saline Administered 05/27/18 05:55 Dose 1,000 mls @ as directed .ROUTE .STK-MED ONE Propofol Confirm 05/27/18 06:15 Diprivan 100 Ml Administered 05/27/18 06:16 Dose 100 mls @ as directed .ROUTE .STK-MED ONE Dextrose/Sodium Chloride Confirm 05/27/18 06:59 Dextrose 5%-Normal Saline Administered 05/27/18 07:00 Dose 1,000 mls @ as directed .ROUTE .STK-MED ONE - Radiology Interpretation Free Text/Narrative:: 53-year-old female presents the ED unresponsive. By history from her relate to the procedures rn staff he last heard her stirring around midnight. Paramedics identified that she appears to taken an excessive amount of Lantus insulin. She has 3 pins each containing over 500 units and most of the insulin is gone. There is some suggestion that she also took an overdose of Benadryl. Apparently she has tried to commit suicide in the past in a similar fashion on on more than one occasion. Her daughter shortly after 0500 hrs. this morning and found her completely unresponsive and barely breathing. Called 911. Paramedics arrived to find her unresponsive to verbal and physical stimuli. Blood sugar assessment showed it to be 0 or would not read on the monitor. IV was started and she was given 2 A of D50 percent and this established a blood sugar of about 185. This really didn't produce any significant change in her mental status. She perhaps stirred a little bit but made no purposeful movements. She did not open her eyes she did not ever become verbal. She arrived in the ED unresponsive again to verbal and physical stimuli. She had gasping respirations which were quite shallow at 6-7/m enough to maintain adequate respiratory function. She therefore was intubated with the use of succinylcholine 120 mg IV and 3 mg of Versed IV. She is intubated with a #7 [place] ET tube 21 cm corner of the right lip. Sectioning reveals the ET tube is 2 cm above the james. A nasogastric tube was placed with a great deal of difficulty having to deflate the ET tube to get it into the esophagus. However this is subsequently been pulled out accidentally. It only drained a foamy greenish mid green colored secretion of unclear etiology. It's obviously something else that she ingested. She is currently on a vent at 16 rest per minute. Tidal volume is 550. PEEP of 5. Currently on FiO2 of 80%. This is maintaining O2 sats of 100% uric blood gases are to be repeated shortly. Initial blood gases done with a respiratory rate of 14 and a PaO2 of 70 produced a pH of 7.19 and a PCO2 of 58.7 and a PaO2 of 81. Sats were 91.8%. Therefore adjustments to the ventilator were made to the above-mentioned settings. CT of the brain has been completed and CT appears to be completely normal. There is no intracranial bleeding mass effect. - Re-Assessments/Exams Free Text/Narrative Re-Assessment/Exam: 05/27/18 07:10 Total white count is 6.86 with auto differential of 68.5% neutrophils. Hemoglobin is 12.5 with hematocrit 35.7. MCV is mildly elevated at 102.6. Platelet count 187,000. Sodium 136 with a potassium of 3.6. Chloride 104 bicarbonate 24. And a gap is 11.6. B1 is 19 with creatinine 1.2. GFR is 47. Gross is 105. Lactic acid is 2.1. Calcium 8.4 magnesium slightly low at 1.6. Bilirubin is 0.4. AST is 270 ALT of 86. Alkaline phosphatase is 109. C-reactive protein less than 0.2. BNP is elevated at 859. Protein is 6.9 with an albumin fraction slightly low at 3.2.. Urine drug screen is completely negative. Blood alcohol was 0.18 g percent. Serum salicylates and acetaminophen levels are not yet back. Nurses just told me that her serum troponin is 0.083 mildly elevated. I spoke with Dr. Franklin -- government relations director hospitalist and he has accepted care of this patient to the intensive care unit. Transfer to the unit as soon as nursing staff have a bed available 05/27/18 07:24 serum salicylates and acetaminophen levels are negative. is currently sedated with propofol drip at 0.5 mcg/kg/m. He has received vecuronium 8 mg IV 1 dose to maintain paralysis. 05/27/18 07:28 Transported to the ICU now. Note ET tube was deflated and pushed 2 cm further into the trachea to now lie at 23 cm of the corner of her right lip. The tip of the ET tube was slightly above the clavicles on chest x-ray. Departure - Departure Time of Disposition: 07:29 Disposition: Admitted As Inpatient 65 Condition: Serious Clinical Impression: Intentional overdose of drug by injectable substance - Discharge Information *PRESCRIPTION DRUG MONITORING PROGRAM REVIEWED*: Not Applicable *COPY OF PRESCRIPTION DRUG MONITORING REPORT IN PATIENT CHRIS: Not Applicable Instructions: Alcohol Use Disorder Forms: ED Department Discharge Additional Instructions: Patient admitted to the intensive care unit after arriving in the ED completely obtunded unresponsive to verbal and physical stimuli. When paramedics arrived on scene they measured her blood sugar to be 0 or unmeasurable. Several empty vials of Lantus insulin pens were identified on scene H1 contains over 500 units. 2 were completely empty one had some left in it. Her last her stirring about 12:00 and of the suspect she took the medication around that time. It's also suspect she took other medications such as Benadryl or other sedatives. She also has blood alcohol of 0.[address] head reveals no abnormalities. Patient required 2 further doses of D50 percent in the ED. Last blood sugar before leaving the ED was 285. She can is maintained on IV D5 normal saline at 125 mils per hour at present. Suggest repeat ABGs once she reaches the ICU. Critical Care Note - Critical Care Note Total Time (mins): 120 - My Orders Last 24 Hours: My Active Orders 05/27/18 05:55 INR,PT,PROTHROMBIN TIME [COAG] Stat PTT,PARTIAL THROMBOPLSTIN TIME [COAG] Stat 05/27/18 06:25 Urinary Catheter Assessment [RC] ASDIRECTED 05/27/18 06:28 EKG Documentation Completion [RC] STAT ABG [BLOOD GAS ARTERIAL] [BG] Stat 05/27/18 06:29 BLOOD GAS ARTERIAL [BG] Stat COOXIMETRY [BG] Stat 05/27/18 06:30 Insert Joseph Catheter [Insert Urinary Catheter] [OM.PC] Q24H - Assessment/Plan Last 24 Hours: My Active Orders 05/27/18 05:55 INR,PT,PROTHROMBIN TIME [COAG] Stat PTT,PARTIAL THROMBOPLSTIN TIME [COAG] Stat 05/27/18 06:25 Urinary Catheter Assessment [RC] ASDIRECTED 05/27/18 06:28 EKG Documentation Completion [RC] STAT ABG [BLOOD GAS ARTERIAL] [BG] Stat 05/27/18 06:29 BLOOD GAS ARTERIAL [BG] Stat COOXIMETRY [BG] Stat 05/27/18 06:30 Insert Joseph Catheter [Insert Urinary Catheter] [OM.PC] Q24H
--- NOTE | 2018-05-27 07:11 | CT ---
Head CT Technique: Multiple axial sections through the brain were obtained. Intravenous contrast was not utilized. Comparison: Prior head CT study of 06/01/17. Findings: Ventricles along with basal cisterns and sulci over the convexities appear within normal limits for the patient's age. No abnormal parenchymal densities are seen. No evidence of intracranial hemorrhage. No midline shift or mass effect is seen. Moderate mucosal thickening seen within right maxillary sinus is partially visualized air-fluid level. No acute calvarial abnormality is seen. Impression: 1. Moderate mucosal thickening within the right maxillary sinus with partially visualized air-fluid level. This air-fluid level either represents sinusitis or retained secretion if patient has no infectious symptoms. 2. No acute intracranial abnormality is otherwise seen. Diagnostic code #3
--- NOTE | 2018-05-27 07:17 | CR ---
Chest: Portable view of the chest was obtained. Comparison: Prior chest x-ray of 05/19/17. Heart size appears within normal limits. Upper mediastinum is normal. Tip of endotracheal tube lies slightly above the superior clavicles. Nasogastric tube is seen with tip lying within the stomach. Previous gastric surgery and cholecystectomy is noted. Lungs are clear. Impression: 1. Tip of endotracheal tube above the superior clavicles. 2. Nasogastric tube with tip in the stomach. 3. Other incidental findings. Diagnostic code #3
[2018-05-27] MEDS ORDERED: LORazepam 2 MG/ML SDV IVPUSH PRN (08:45)
[2018-05-27] MEDS ORDERED: Temazepam 7.5 MG Cap PO PRN (08:48)
[2018-05-27] MEDS ORDERED: Bisacodyl 5 MG Tab PO PRN (08:48)
[2018-05-27] MEDS ORDERED: Acetaminophen 325 MG Tab PO PRN (08:48)
[2018-05-27] MEDS ORDERED: Acetaminophen/HYDROcodone 325-5 MG Tab PO PRN (08:48)
[2018-05-27] MEDS ORDERED: Albuterol/Ipratropium 3.0-0.5 MG/3 ML Neb Soln NEB PRN (08:48)
[2018-05-27] MEDS ORDERED: Docusate Sodium 100 MG Cap PO PRN (08:48)
[2018-05-27] MEDS ORDERED: Ondansetron 4 MG/2 ML SDV IV PRN (08:48)
[2018-05-27] MEDS ORDERED: HYDROmorphone 1 MG/ML Syringe IVPUSH PRN (08:48)
[2018-05-27] MEDS ORDERED: Promethazine 6.25 MG in Sodium Chloride 0.9% 50 ML IV PRN (08:48)
[2018-05-27] MEDS ORDERED: cefTRIAXone 1 GM in Sodium Chloride 0.9% 100 ML IV SCH (09:00)
[2018-05-27] MEDS ORDERED: cloNIDine 0.3 MG/Day Transdermal Patch TRDERM ONE (09:00)
[2018-05-27] MEDS ORDERED: Magnesium Sulfate/Water 2 GM in Premix Bag 1 BAG IV ONE (09:15)
--- NOTE | 2018-05-27 09:38 | CR ---
Chest: Frontal view of the chest was obtained. Comparison: Prior chest x-ray performed on 05/27/15. Endotracheal tube is seen. Tip lies slightly past the lower level clavicles in satisfactory position. Nasogastric tube is seen with tip lying within the stomach. Heart size and mediastinum are within normal limits for portable technique. Lungs are clear. Stable surgical material is seen within the upper abdomen. Impression: 1. Satisfactory position of endotracheal tube and nasogastric tube. 2. Nothing acute is otherwise seen. Diagnostic code #3
[2018-05-27] MEDS: Enoxaparin 40 MG/0.4 ML Syringe SUBCUT SCH (10:33)
[2018-05-27] MEDS ORDERED: Dextrose 5%-0.9% NaCl 1,000 ML IV SCH ×3 (12:30→15:00)
[2018-05-27] MEDS: Ampicillin/Sulbactam Na 3 GM in Sodium Chloride 0.9% 100 ML IV SCH ×3 (12:38→22:22)
[2018-05-27] MEDS: 50% Dextrose in Water 50 ML Syringe IVPUSH PRN ×6 (13:10→22:39)
--- NOTE | 2018-05-27 14:12 | PCM.HP ---
H&P History of Present Illness - General Date of Service: 05/27/18 Admit Problem/Dx: Admission Diagnosis/Problem Admission Diagnosis/Problem Intentional overdose of drug by injectable substance Source of Information: Patient, Family, Old Records, Provider, RN Notes Reviewed History Limitations: Reports: Altered Mental Status - History of Present Illness Initial Comments - Free Text/Narative: This is a 53 yo white female with past medical hx/o Impaired Vision, HTN, Asthma , GERD, Hx/o Pancreatitis, Insomnia, Anxiety, Recurrent UTI, MANOJ, Hx/o Suicide Attempt, DM1, and Depression who was brought in by paramedics due to unresponsiveness. Her last known well was about midnight. Per ED notes, patient has taken large amount of LA insulin (at least 3-4 pens) and possibly numerous other drugs to include Benadryl and ETOH in an effort to end her life. Patient carries a previous hx/o similar attempt in the past. Her indicated that she may have done so at midnight. When her woke up and checked on her at about 5:30 AM, she was unresponsive and barely breathing. It was unclear however what triggers it but her believed it may be due to her children not talking to her. Paramedics did check her glucose but the meter would not read her glucose so she was given D50 until she was brought to ED for further evaluation. In ED, she remained unresponsive with worsening respiratory status and therefore she required immediate intubation. Her initial work up in ED shows a CBC significant for RBC of 3.48, MCV of 102.6 , MCH of 35.9, Eosinophils of 0.1%, and Monocyte# of 0.38. Her initial ABG shows a pH of 7.19, pCO2 of 58.7, pO2 of 81, HCO3 of 21.7, O2 Sat of 91.8% on 70 % FiO2, VT 500 with PEEP of 5. Her chemistry is remarkable for BUN of 19, Cr of 1.2, BS of 128, LA of 2.1, Ca of 8.4, Mg of 1.6, AST of 270, ALT of 86, Initial troponin of 0.083, ProBNP of 859, and Albumin of 3.2. Her UDS is pos for Salicylates at 0.4 and MELANI level is 0.18. Patient was admitted for AMS, Respiratory Failure, Hypoglycemia and Suicide Attempted Via Insulin Injection. - Related Data Allergies/Adverse Reactions: Allergies Allergy/AdvReac Type Severity Reaction Status Date / Time Influenza Virus Vaccines Allergy Itching Verified 08/20/16 15:18 pneumococcal vaccine Allergy Redness Verified 08/20/16 15:18 Home Medications: Home Meds Insulin Detemir [Levemir] 30 unit SUBCUT 05/27/18 [History] Insulin Glarg,Human.Rec.Analog [Lantus Solostar] 30 units SUBCUT QAM 05/27/18 [ History] Lisinopril [Zestril] 40 mg PO DAILY 05/27/18 [History] Past Medical History HEENT History: Reports: Impaired Vision Other HEENT History: wear glasses Cardiovascular History: Reports: Hypertension Respiratory History: Reports: Asthma Gastrointestinal History: Reports: GERD, Pancreatitis Genitourinary History: Reports: UTI, Recurrent [employer] History: Reports: Fibroids, Other (See Below) Other OB/BYN History: hysterectomy with overies intact Musculoskeletal History: Reports: Other (See Below) Other Musculoskeletal History: pt takes lyrica for pain Neurological History: Reports: None Psychiatric History: Reports: Depression, Suicide Attempt Endocrine/Metabolic History: Reports: Diabetes, Type I Other Endocrine/Metabolic History: recent weight gain Hematologic History: Reports: Iron Deficiency Other Oncologic History: colon polups Dermatologic History: Reports: None - Infectious Disease History Infectious Disease History: Reports: Chicken Pox - Past Surgical History Cardiovascular Surgical History: Reports: None GI Surgical History: Reports: Appendectomy, Bariatric Procedure, Cholecystectomy Female Surgical History: Reports: Hysterectomy, Other (See Below) Neurological Surgical History: Reports: None Dermatological Surgical History: Reports: Other (See Below) Social & Family History - Family History Family Medical History: Noncontributory - Tobacco Use Smoking Status *Q: Never Smoker Second Hand Smoke Exposure: No - Caffeine Use Caffeine Use: Reports: Coffee Other Caffeine Use: unknown Caffeine Use Comment: unable to assess - Alcohol Use Days Per Week of Alcohol Use: 7 Number of Drinks Per Day: 7 Total Drinks Per Week: 49 - Recreational Drug Use Recreational Drug Use: No - Living Situation & Occupation Living situation: Reports: Occupation: Unemployed H&P Review of Systems - Review of Systems: Review Of Systems: Unable To Obtain Review of Systems Comment:: Unable to obtain. She is sedated intubated on mechanical ventilator Exam - Exam Exam: See Below - Vital Signs Vital Signs: Last Vital Signs Temp 36.4 C 05/27/18 12:00 Pulse 90 05/27/18 12:00 Resp 14 05/27/18 12:00 BP 123/73 05/27/18 12:00 Pulse Ox 100 05/27/18 12:00 Weight: 72.575 kg - Exam General: Sedated, Other HEENT: Pupils Equal, Other (Pinpointed pipils; presence of GT tube). No: Pupils Reactive Neck: Supple Lungs: Other (mechanical breath sounds; ET tube in placed) Cardiovascular: Regular Rate, Regular Rhythm GI/Abdominal Exam: Normal Bowel Sounds, Soft, Non-Tender, No Organomegaly, No Distention, No Abnormal Bruit (Female) Exam: Other (indwelling avalos catheter) Rectal (Female) Exam: Deferred Back Exam: Other (deferred) Extremities: Normal Inspection, Non-Tender, No Pedal Edema, Normal Capillary Refill Peripheral Pulses: 2+: Posterior Tibial (L), Posterior Tibial (R), Dorsalis Pedis (L), Dorsalis Pedis (R) Skin: Warm, Dry, Intact Neuro Extensive - Mental Status: Other (deferred) Neuro Extensive - Motor, Sensory, Reflexes: Other (deferred) Psychiatric: Other (deferred) Physical Exam Comments:: Physical examination is very limited. She is sedated, intubated on mechanical ventilator - Patient Data Lab Results Last 24 hrs: Laboratory Results - last 24 hr 05/27/18 05/27/18 05/27/18 Range/Units 05:45 05:50 05:50 WBC 6.86 (3.98-10.04) K/mm3 RBC 3.48 L (3.98-5.22) M/mm3 Hgb 12.5 (11.2-15.7) gm/L Hct 35.7 (34.1-44.9) % MCV 102.6 H (79.4-94.8) fl MCH 35.9 H (25.6-32.2) pg MCHC 35.0 (32.2-35.5) g/dl RDW Std Deviation 43.0 (36.4-46.3) fL Plt Count 187 (182-369) K/mm3 MPV 9.7 (9.4-12.3) fl Neut % (Auto) 68.5 (34.0-71.1) % Lymph % (Auto) 25.5 (19.3-51.7) % Gove % (Auto) 5.5 (4.7-12.5) % Eos % (Auto) 0.1 L (0.7-5.8) Baso % (Auto) 0.3 (0.1-1.2) % Neut # (Auto) 4.69 (1.56-6.13) K/mm3 Lymph # (Auto) 1.75 (1.18-3.74) K/mm3 Gove # (Auto) 0.38 H (0.24-0.36) K/mm3 Eos # (Auto) 0.01 L (0.04-0.36) K/mm3 Baso # (Auto) 0.02 (0.01-0.08) K/mm3 PT (9.5-12.1) SECONDS INR APTT (24-31) SECONDS Puncture Site ABG pH (7.35-7.45) ABG pCO2 (35.0-45.0) mmHg ABG pO2 (80.0-100.0) mmHg ABG HCO3 (22.0-26.0) meq/L ABG O2 Saturation (96.0-97.0) % ABG Base Excess (-2-2.0) ABG Hemoglobin (12.0-18.0) g/L ABG Oxyhemoglobin ABG Carboxyhemoglobin (0.00-1.50) %THgb ABG Methemoglobin (0.00-1.5) % Burt Test A-a Gradient mmHg O2 Delivery Device FiO2 (21.00-100.00) % Tidal Volume cc PEEP cmH20 Sodium 136 (136-145) mEq/L Potassium 3.6 (3.5-5.1) mEq/L Chloride 104 (98-107) mEq/L Carbon Dioxide 24 (21-32) mEq/L Anion Gap 11.6 (5-15) BUN 19 H (7-18) mg/dL Creatinine 1.2 H (0.55-1.02) mg/dL Est Cr Clr Drug Dosing TNP Estimated GFR (MDRD) 47 (>60) mL/min BUN/Creatinine Ratio 15.8 (14-18) Glucose 105 (74-106) mg/dL POC Glucose 128 H (70-105) mg/dL Lactic Acid (0.4-2.0) mmol/L Calcium 8.4 L (8.5-10.1) mg/dL Magnesium (1.8-2.4) mg/dl Total Bilirubin 0.4 (0.2-1.0) mg/dL AST 270 H (15-37) U/L ALT 86 H (14-59) U/L Alkaline Phosphatase 109 (46-116) U/L CK-MB (CK-2) (0-3.6) ng/ml Troponin I (0.00-0.056) ng/mL C-Reactive Protein (<1.0) mg/dL NT-Pro-B Natriuret Pep (0-125) pg/mL Total Protein 6.9 (6.4-8.2) g/dl Albumin 3.2 L (3.4-5.0) g/dl Globulin 3.7 gm/dL Albumin/Globulin Ratio 0.9 L (1-2) Salicylates (2.8-20) mg/dL Urine Opiates Screen (RELDLZ=273) Ur Buprenorphine Scrn (CUTOFF=10) Ur Oxycodone Screen (WJK3CY=140) Urine Methadone Screen (TJBQQL=514) Ur Propoxyphene Screen (RHUNJU=864) Acetaminophen (10-30) ug/mL Ur Barbiturates Screen (ODWAMU=871) Ur Tricyclics Screen (WRFEUA=559) Ur Phencyclidine Scrn (CUTOFF=25) Ur Amphetamine Screen (XPINHA=357) U Methamphetamines Scrn (KIYOBE=462) U Benzodiazepines Scrn (OGDDLY=962) U Cocaine Metab Screen (YRGLPW=088) U Marijuana (THC) Screen (CUTOFF=50) Ethyl Alcohol 0.18 (0.00) gm% 05/27/18 05/27/18 05/27/18 Range/Units 05:50 05:50 05:50 WBC (3.98-10.04) K/mm3 RBC (3.98-5.22) M/mm3 Hgb (11.2-15.7) gm/L Hct (34.1-44.9) % MCV (79.4-94.8) fl MCH (25.6-32.2) pg MCHC (32.2-35.5) g/dl RDW Std Deviation (36.4-46.3) fL Plt Count (182-369) K/mm3 MPV (9.4-12.3) fl Neut % (Auto) (34.0-71.1) % Lymph % (Auto) (19.3-51.7) % Gove % (Auto) (4.7-12.5) % Eos % (Auto) (0.7-5.8) Baso % (Auto) (0.1-1.2) % Neut # (Auto) (1.56-6.13) K/mm3 Lymph # (Auto) (1.18-3.74) K/mm3 Gove # (Auto) (0.24-0.36) K/mm3 Eos # (Auto) (0.04-0.36) K/mm3 Baso # (Auto) (0.01-0.08) K/mm3 PT (9.5-12.1) SECONDS INR APTT (24-31) SECONDS Puncture Site ABG pH (7.35-7.45) ABG pCO2 (35.0-45.0) mmHg ABG pO2 (80.0-100.0) mmHg ABG HCO3 (22.0-26.0) meq/L ABG O2 Saturation (96.0-97.0) % ABG Base Excess (-2-2.0) ABG Hemoglobin (12.0-18.0) g/L ABG Oxyhemoglobin ABG Carboxyhemoglobin (0.00-1.50) %THgb ABG Methemoglobin (0.00-1.5) % Burt Test A-a Gradient mmHg O2 Delivery Device FiO2 (21.00-100.00) % Tidal Volume cc PEEP cmH20 Sodium (136-145) mEq/L Potassium (3.5-5.1) mEq/L Chloride (98-107) mEq/L Carbon Dioxide (21-32) mEq/L Anion Gap (5-15) BUN (7-18) mg/dL Creatinine (0.55-1.02) mg/dL Est Cr Clr Drug Dosing Estimated GFR (MDRD) (>60) mL/min BUN/Creatinine Ratio (14-18) Glucose (74-106) mg/dL POC Glucose (70-105) mg/dL Lactic Acid 2.1 H (0.4-2.0) mmol/L Calcium (8.5-10.1) mg/dL Magnesium 1.6 L (1.8-2.4) mg/dl Total Bilirubin (0.2-1.0) mg/dL AST (15-37) U/L ALT (14-59) U/L Alkaline Phosphatase (46-116) U/L CK-MB (CK-2) (0-3.6) ng/ml Troponin I (0.00-0.056) ng/mL C-Reactive Protein < 0.2 (<1.0) mg/dL NT-Pro-B Natriuret Pep 859 H (0-125) pg/mL Total Protein (6.4-8.2) g/dl Albumin (3.4-5.0) g/dl Globulin gm/dL Albumin/Globulin Ratio (1-2) Salicylates (2.8-20) mg/dL Urine Opiates Screen (NAQNIK=608) Ur Buprenorphine Scrn (CUTOFF=10) Ur Oxycodone Screen (XPQ2KP=666) Urine Methadone Screen (PKXZTV=925) Ur Propoxyphene Screen (ZDRLVV=841) Acetaminophen (10-30) ug/mL Ur Barbiturates Screen (HDJFAF=557) Ur Tricyclics Screen (ASUVPP=682) Ur Phencyclidine Scrn (CUTOFF=25) Ur Amphetamine Screen (SYQGIQ=120) U Methamphetamines Scrn (LRCDMM=396) U Benzodiazepines Scrn (JZYTEW=959) U Cocaine Metab Screen (WSOGIT=295) U Marijuana (THC) Screen (CUTOFF=50) Ethyl Alcohol (0.00) gm% 05/27/18 05/27/18 05/27/18 Range/Units 05:54 05:55 05:55 WBC (3.98-10.04) K/mm3 RBC (3.98-5.22) M/mm3 Hgb (11.2-15.7) gm/L Hct (34.1-44.9) % MCV (79.4-94.8) fl MCH (25.6-32.2) pg MCHC (32.2-35.5) g/dl RDW Std Deviation (36.4-46.3) fL Plt Count (182-369) K/mm3 MPV (9.4-12.3) fl Neut % (Auto) (34.0-71.1) % Lymph % (Auto) (19.3-51.7) % Gove % (Auto) (4.7-12.5) % Eos % (Auto) (0.7-5.8) Baso % (Auto) (0.1-1.2) % Neut # (Auto) (1.56-6.13) K/mm3 Lymph # (Auto) (1.18-3.74) K/mm3 Gove # (Auto) (0.24-0.36) K/mm3 Eos # (Auto) (0.04-0.36) K/mm3 Baso # (Auto) (0.01-0.08) K/mm3 PT 10.3 (9.5-12.1) SECONDS INR 0.94 APTT 24 (24-31) SECONDS Puncture Site ABG pH (7.35-7.45) ABG pCO2 (35.0-45.0) mmHg ABG pO2 (80.0-100.0) mmHg ABG HCO3 (22.0-26.0) meq/L ABG O2 Saturation (96.0-97.0) % ABG Base Excess (-2-2.0) ABG Hemoglobin (12.0-18.0) g/L ABG Oxyhemoglobin ABG Carboxyhemoglobin (0.00-1.50) %THgb ABG Methemoglobin (0.00-1.5) % Burt Test A-a Gradient mmHg O2 Delivery Device FiO2 (21.00-100.00) % Tidal Volume cc PEEP cmH20 Sodium (136-145) mEq/L Potassium (3.5-5.1) mEq/L Chloride (98-107) mEq/L Carbon Dioxide (21-32) mEq/L Anion Gap (5-15) BUN (7-18) mg/dL Creatinine (0.55-1.02) mg/dL Est Cr Clr Drug Dosing Estimated GFR (MDRD) (>60) mL/min BUN/Creatinine Ratio (14-18) Glucose (74-106) mg/dL POC Glucose 91 (70-105) mg/dL Lactic Acid (0.4-2.0) mmol/L Calcium (8.5-10.1) mg/dL Magnesium (1.8-2.4) mg/dl Total Bilirubin (0.2-1.0) mg/dL AST (15-37) U/L ALT (14-59) U/L Alkaline Phosphatase (46-116) U/L CK-MB (CK-2) 3.1 (0-3.6) ng/ml Troponin I 0.083 H* (0.00-0.056) ng/mL C-Reactive Protein (<1.0) mg/dL NT-Pro-B Natriuret Pep (0-125) pg/mL Total Protein (6.4-8.2) g/dl Albumin (3.4-5.0) g/dl Globulin gm/dL Albumin/Globulin Ratio (1-2) Salicylates (2.8-20) mg/dL Urine Opiates Screen (NOCDKX=493) Ur Buprenorphine Scrn (CUTOFF=10) Ur Oxycodone Screen (GNP8HK=275) Urine Methadone Screen (SMIPWE=275) Ur Propoxyphene Screen (DICYVG=918) Acetaminophen 0 L (10-30) ug/mL Ur Barbiturates Screen (CQFVBC=355) Ur Tricyclics Screen (ZNXFDV=799) Ur Phencyclidine Scrn (CUTOFF=25) Ur Amphetamine Screen (SSSOFA=299) U Methamphetamines Scrn (FUBFRY=728) U Benzodiazepines Scrn (WTWIYG=247) U Cocaine Metab Screen (OEUJIV=812) U Marijuana (THC) Screen (CUTOFF=50) Ethyl Alcohol (0.00) gm% 05/27/18 05/27/18 05/27/18 Range/Units 05:55 06:06 06:20 WBC (3.98-10.04) K/mm3 RBC (3.98-5.22) M/mm3 Hgb (11.2-15.7) gm/L Hct (34.1-44.9) % MCV (79.4-94.8) fl MCH (25.6-32.2) pg MCHC (32.2-35.5) g/dl RDW Std Deviation (36.4-46.3) fL Plt Count (182-369) K/mm3 MPV (9.4-12.3) fl Neut % (Auto) (34.0-71.1) % Lymph % (Auto) (19.3-51.7) % Gove % (Auto) (4.7-12.5) % Eos % (Auto) (0.7-5.8) Baso % (Auto) (0.1-1.2) % Neut # (Auto) (1.56-6.13) K/mm3 Lymph # (Auto) (1.18-3.74) K/mm3 Gove # (Auto) (0.24-0.36) K/mm3 Eos # (Auto) (0.04-0.36) K/mm3 Baso # (Auto) (0.01-0.08) K/mm3 PT (9.5-12.1) SECONDS INR APTT (24-31) SECONDS Puncture Site ABG pH (7.35-7.45) ABG pCO2 (35.0-45.0) mmHg ABG pO2 (80.0-100.0) mmHg ABG HCO3 (22.0-26.0) meq/L ABG O2 Saturation (96.0-97.0) % ABG Base Excess (-2-2.0) ABG Hemoglobin (12.0-18.0) g/L ABG Oxyhemoglobin ABG Carboxyhemoglobin (0.00-1.50) %THgb ABG Methemoglobin (0.00-1.5) % Burt Test A-a Gradient mmHg O2 Delivery Device FiO2 (21.00-100.00) % Tidal Volume cc PEEP cmH20 Sodium (136-145) mEq/L Potassium (3.5-5.1) mEq/L Chloride (98-107) mEq/L Carbon Dioxide (21-32) mEq/L Anion Gap (5-15) BUN (7-18) mg/dL Creatinine (0.55-1.02) mg/dL Est Cr Clr Drug Dosing Estimated GFR (MDRD) (>60) mL/min BUN/Creatinine Ratio (14-18) Glucose (74-106) mg/dL POC Glucose 138 H (70-105) mg/dL Lactic Acid (0.4-2.0) mmol/L Calcium (8.5-10.1) mg/dL Magnesium (1.8-2.4) mg/dl Total Bilirubin (0.2-1.0) mg/dL AST (15-37) U/L ALT (14-59) U/L Alkaline Phosphatase (46-116) U/L CK-MB (CK-2) (0-3.6) ng/ml Troponin I (0.00-0.056) ng/mL C-Reactive Protein (<1.0) mg/dL NT-Pro-B Natriuret Pep (0-125) pg/mL Total Protein (6.4-8.2) g/dl Albumin (3.4-5.0) g/dl Globulin gm/dL Albumin/Globulin Ratio (1-2) Salicylates 0.4 L (2.8-20) mg/dL Urine Opiates Screen Negative (IDPVGC=334) Ur Buprenorphine Scrn Negative (CUTOFF=10) Ur Oxycodone Screen Negative (YPR7ZU=451) Urine Methadone Screen Negative (RCUHAB=299) Ur Propoxyphene Screen Negative (DNQIAR=336) Acetaminophen (10-30) ug/mL Ur Barbiturates Screen Negative (BICOWY=111) Ur Tricyclics Screen Negative (GPRYTU=723) Ur Phencyclidine Scrn Negative (CUTOFF=25) Ur Amphetamine Screen Negative (XOCIBV=127) U Methamphetamines Scrn Negative (IXZMME=126) U Benzodiazepines Scrn Negative (XCHPUX=333) U Cocaine Metab Screen Negative (ZZQMUH=588) U Marijuana (THC) Screen Negative (CUTOFF=50) Ethyl Alcohol (0.00) gm% 05/27/18 05/27/18 05/27/18 Range/Units 06:21 06:29 06:35 WBC (3.98-10.04) K/mm3 RBC (3.98-5.22) M/mm3 Hgb (11.2-15.7) gm/L Hct (34.1-44.9) % MCV (79.4-94.8) fl MCH (25.6-32.2) pg MCHC (32.2-35.5) g/dl RDW Std Deviation (36.4-46.3) fL Plt Count (182-369) K/mm3 MPV (9.4-12.3) fl Neut % (Auto) (34.0-71.1) % Lymph % (Auto) (19.3-51.7) % Gove % (Auto) (4.7-12.5) % Eos % (Auto) (0.7-5.8) Baso % (Auto) (0.1-1.2) % Neut # (Auto) (1.56-6.13) K/mm3 Lymph # (Auto) (1.18-3.74) K/mm3 Gove # (Auto) (0.24-0.36) K/mm3 Eos # (Auto) (0.04-0.36) K/mm3 Baso # (Auto) (0.01-0.08) K/mm3 PT (9.5-12.1) SECONDS INR APTT (24-31) SECONDS Puncture Site Rt radial ABG pH 7.19 L* (7.35-7.45) ABG pCO2 58.7 H (35.0-45.0) mmHg ABG pO2 81.0 (80.0-100.0) mmHg ABG HCO3 21.7 L (22.0-26.0) meq/L ABG O2 Saturation 91.8 L (96.0-97.0) % ABG Base Excess -6.5 L (-2-2.0) ABG Hemoglobin 10.8 L (12.0-18.0) g/L ABG Oxyhemoglobin 90.1 ABG Carboxyhemoglobin 1.0 (0.00-1.50) %THgb ABG Methemoglobin 0.9 (0.00-1.5) % Burt Test Positive A-a Gradient 294 mmHg O2 Delivery Device FiO2 70.00 (21.00-100.00) % Tidal Volume 500.0 cc PEEP 5.0 cmH20 Sodium (136-145) mEq/L Potassium (3.5-5.1) mEq/L Chloride (98-107) mEq/L Carbon Dioxide (21-32) mEq/L Anion Gap (5-15) BUN (7-18) mg/dL Creatinine (0.55-1.02) mg/dL Est Cr Clr Drug Dosing Estimated GFR (MDRD) (>60) mL/min BUN/Creatinine Ratio (14-18) Glucose (74-106) mg/dL POC Glucose 82 170 H (70-105) mg/dL Lactic Acid (0.4-2.0) mmol/L Calcium (8.5-10.1) mg/dL Magnesium (1.8-2.4) mg/dl Total Bilirubin (0.2-1.0) mg/dL AST (15-37) U/L ALT (14-59) U/L Alkaline Phosphatase (46-116) U/L CK-MB (CK-2) (0-3.6) ng/ml Troponin I (0.00-0.056) ng/mL C-Reactive Protein (<1.0) mg/dL NT-Pro-B Natriuret Pep (0-125) pg/mL Total Protein (6.4-8.2) g/dl Albumin (3.4-5.0) g/dl Globulin gm/dL Albumin/Globulin Ratio (1-2) Salicylates (2.8-20) mg/dL Urine Opiates Screen (PJFMYF=152) Ur Buprenorphine Scrn (CUTOFF=10) Ur Oxycodone Screen (CMZ5EA=207) Urine Methadone Screen (MEREZS=154) Ur Propoxyphene Screen (NDHTTZ=842) Acetaminophen (10-30) ug/mL Ur Barbiturates Screen (JPMWMR=730) Ur Tricyclics Screen (BUYELR=255) Ur Phencyclidine Scrn (CUTOFF=25) Ur Amphetamine Screen (ILRCRU=824) U Methamphetamines Scrn (OIUHZN=206) U Benzodiazepines Scrn (SJQOBX=036) U Cocaine Metab Screen (IFIMHC=997) U Marijuana (THC) Screen (CUTOFF=50) Ethyl Alcohol (0.00) gm% 05/27/18 05/27/18 05/27/18 Range/Units 06:51 07:06 07:47 WBC (3.98-10.04) K/mm3 RBC (3.98-5.22) M/mm3 Hgb (11.2-15.7) gm/L Hct (34.1-44.9) % MCV (79.4-94.8) fl MCH (25.6-32.2) pg MCHC (32.2-35.5) g/dl RDW Std Deviation (36.4-46.3) fL Plt Count (182-369) K/mm3 MPV (9.4-12.3) fl Neut % (Auto) (34.0-71.1) % Lymph % (Auto) (19.3-51.7) % Gove % (Auto) (4.7-12.5) % Eos % (Auto) (0.7-5.8) Baso % (Auto) (0.1-1.2) % Neut # (Auto) (1.56-6.13) K/mm3 Lymph # (Auto) (1.18-3.74) K/mm3 Gove # (Auto) (0.24-0.36) K/mm3 Eos # (Auto) (0.04-0.36) K/mm3 Baso # (Auto) (0.01-0.08) K/mm3 PT (9.5-12.1) SECONDS INR APTT (24-31) SECONDS Puncture Site ABG pH (7.35-7.45) ABG pCO2 (35.0-45.0) mmHg ABG pO2 (80.0-100.0) mmHg ABG HCO3 (22.0-26.0) meq/L ABG O2 Saturation (96.0-97.0) % ABG Base Excess (-2-2.0) ABG Hemoglobin (12.0-18.0) g/L ABG Oxyhemoglobin ABG Carboxyhemoglobin (0.00-1.50) %THgb ABG Methemoglobin (0.00-1.5) % Burt Test A-a Gradient mmHg O2 Delivery Device FiO2 (21.00-100.00) % Tidal Volume cc PEEP cmH20 Sodium (136-145) mEq/L Potassium (3.5-5.1) mEq/L Chloride (98-107) mEq/L Carbon Dioxide (21-32) mEq/L Anion Gap (5-15) BUN (7-18) mg/dL Creatinine (0.55-1.02) mg/dL Est Cr Clr Drug Dosing Estimated GFR (MDRD) (>60) mL/min BUN/Creatinine Ratio (14-18) Glucose (74-106) mg/dL POC Glucose 225 H 285 H 254 H (70-105) mg/dL Lactic Acid (0.4-2.0) mmol/L Calcium (8.5-10.1) mg/dL Magnesium (1.8-2.4) mg/dl Total Bilirubin (0.2-1.0) mg/dL AST (15-37) U/L ALT (14-59) U/L Alkaline Phosphatase (46-116) U/L CK-MB (CK-2) (0-3.6) ng/ml Troponin I (0.00-0.056) ng/mL C-Reactive Protein (<1.0) mg/dL NT-Pro-B Natriuret Pep (0-125) pg/mL Total Protein (6.4-8.2) g/dl Albumin (3.4-5.0) g/dl Globulin gm/dL Albumin/Globulin Ratio (1-2) Salicylates (2.8-20) mg/dL Urine Opiates Screen (HUECIQ=347) Ur Buprenorphine Scrn (CUTOFF=10) Ur Oxycodone Screen (FEF7ER=189) Urine Methadone Screen (QMOCLX=572) Ur Propoxyphene Screen (JRLZZO=772) Acetaminophen (10-30) ug/mL Ur Barbiturates Screen (EYPHCX=648) Ur Tricyclics Screen (ZAUIWE=457) Ur Phencyclidine Scrn (CUTOFF=25) Ur Amphetamine Screen (QUIDFE=377) U Methamphetamines Scrn (NNILKZ=342) U Benzodiazepines Scrn (VLSNJP=501) U Cocaine Metab Screen (KMYYJA=985) U Marijuana (THC) Screen (CUTOFF=50) Ethyl Alcohol (0.00) gm% 05/27/18 05/27/18 05/27/18 Range/Units 08:25 08:35 09:01 WBC (3.98-10.04) K/mm3 RBC (3.98-5.22) M/mm3 Hgb (11.2-15.7) gm/L Hct (34.1-44.9) % MCV (79.4-94.8) fl MCH (25.6-32.2) pg MCHC (32.2-35.5) g/dl RDW Std Deviation (36.4-46.3) fL Plt Count (182-369) K/mm3 MPV (9.4-12.3) fl Neut % (Auto) (34.0-71.1) % Lymph % (Auto) (19.3-51.7) % Gove % (Auto) (4.7-12.5) % Eos % (Auto) (0.7-5.8) Baso % (Auto) (0.1-1.2) % Neut # (Auto) (1.56-6.13) K/mm3 Lymph # (Auto) (1.18-3.74) K/mm3 Gove # (Auto) (0.24-0.36) K/mm3 Eos # (Auto) (0.04-0.36) K/mm3 Baso # (Auto) (0.01-0.08) K/mm3 PT (9.5-12.1) SECONDS INR APTT (24-31) SECONDS Puncture Site Rt brachial ABG pH 7.35 (7.35-7.45) ABG pCO2 31.4 L (35.0-45.0) mmHg ABG pO2 208.0 H* (80.0-100.0) mmHg ABG HCO3 17.0 L (22.0-26.0) meq/L ABG O2 Saturation 98.1 H (96.0-97.0) % ABG Base Excess -7.1 L (-2-2.0) ABG Hemoglobin (12.0-18.0) g/L ABG Oxyhemoglobin ABG Carboxyhemoglobin (0.00-1.50) %THgb ABG Methemoglobin (0.00-1.5) % Burt Test Positive A-a Gradient 265 mmHg O2 Delivery Device Ventilator FiO2 80.00 (21.00-100.00) % Tidal Volume 550.0 cc PEEP 5.0 cmH20 Sodium (136-145) mEq/L Potassium (3.5-5.1) mEq/L Chloride (98-107) mEq/L Carbon Dioxide (21-32) mEq/L Anion Gap (5-15) BUN (7-18) mg/dL Creatinine (0.55-1.02) mg/dL Est Cr Clr Drug Dosing Estimated GFR (MDRD) (>60) mL/min BUN/Creatinine Ratio (14-18) Glucose (74-106) mg/dL POC Glucose 243 H 206 H (70-105) mg/dL Lactic Acid (0.4-2.0) mmol/L Calcium (8.5-10.1) mg/dL Magnesium (1.8-2.4) mg/dl Total Bilirubin (0.2-1.0) mg/dL AST (15-37) U/L ALT (14-59) U/L Alkaline Phosphatase (46-116) U/L CK-MB (CK-2) (0-3.6) ng/ml Troponin I (0.00-0.056) ng/mL C-Reactive Protein (<1.0) mg/dL NT-Pro-B Natriuret Pep (0-125) pg/mL Total Protein (6.4-8.2) g/dl Albumin (3.4-5.0) g/dl Globulin gm/dL Albumin/Globulin Ratio (1-2) Salicylates (2.8-20) mg/dL Urine Opiates Screen (BOQHYN=605) Ur Buprenorphine Scrn (CUTOFF=10) Ur Oxycodone Screen (RFT9LO=745) Urine Methadone Screen (WUBJTR=227) Ur Propoxyphene Screen (KTPIZS=933) Acetaminophen (10-30) ug/mL Ur Barbiturates Screen (XHAFVR=851) Ur Tricyclics Screen (GZABLI=279) Ur Phencyclidine Scrn (CUTOFF=25) Ur Amphetamine Screen (SMZPGC=073) U Methamphetamines Scrn (YSNMBE=573) U Benzodiazepines Scrn (LDOFGQ=281) U Cocaine Metab Screen (UZMJYF=773) U Marijuana (THC) Screen (CUTOFF=50) Ethyl Alcohol (0.00) gm% 05/27/18 05/27/18 05/27/18 Range/Units 10:02 12:34 13:00 WBC (3.98-10.04) K/mm3 RBC (3.98-5.22) M/mm3 Hgb (11.2-15.7) gm/L Hct (34.1-44.9) % MCV (79.4-94.8) fl MCH (25.6-32.2) pg MCHC (32.2-35.5) g/dl RDW Std Deviation (36.4-46.3) fL Plt Count (182-369) K/mm3 MPV (9.4-12.3) fl Neut % (Auto) (34.0-71.1) % Lymph % (Auto) (19.3-51.7) % Gove % (Auto) (4.7-12.5) % Eos % (Auto) (0.7-5.8) Baso % (Auto) (0.1-1.2) % Neut # (Auto) (1.56-6.13) K/mm3 Lymph # (Auto) (1.18-3.74) K/mm3 Gove # (Auto) (0.24-0.36) K/mm3 Eos # (Auto) (0.04-0.36) K/mm3 Baso # (Auto) (0.01-0.08) K/mm3 PT (9.5-12.1) SECONDS INR APTT (24-31) SECONDS Puncture Site ABG pH (7.35-7.45) ABG pCO2 (35.0-45.0) mmHg ABG pO2 (80.0-100.0) mmHg ABG HCO3 (22.0-26.0) meq/L ABG O2 Saturation (96.0-97.0) % ABG Base Excess (-2-2.0) ABG Hemoglobin (12.0-18.0) g/L ABG Oxyhemoglobin ABG Carboxyhemoglobin (0.00-1.50) %THgb ABG Methemoglobin (0.00-1.5) % Burt Test A-a Gradient mmHg O2 Delivery Device FiO2 (21.00-100.00) % Tidal Volume cc PEEP cmH20 Sodium (136-145) mEq/L Potassium (3.5-5.1) mEq/L Chloride (98-107) mEq/L Carbon Dioxide (21-32) mEq/L Anion Gap (5-15) BUN (7-18) mg/dL Creatinine (0.55-1.02) mg/dL Est Cr Clr Drug Dosing Estimated GFR (MDRD) (>60) mL/min BUN/Creatinine Ratio (14-18) Glucose (74-106) mg/dL POC Glucose 175 H 66 L 41 L (70-105) mg/dL Lactic Acid (0.4-2.0) mmol/L Calcium (8.5-10.1) mg/dL Magnesium (1.8-2.4) mg/dl Total Bilirubin (0.2-1.0) mg/dL AST (15-37) U/L ALT (14-59) U/L Alkaline Phosphatase (46-116) U/L CK-MB (CK-2) (0-3.6) ng/ml Troponin I (0.00-0.056) ng/mL C-Reactive Protein (<1.0) mg/dL NT-Pro-B Natriuret Pep (0-125) pg/mL Total Protein (6.4-8.2) g/dl Albumin (3.4-5.0) g/dl Globulin gm/dL Albumin/Globulin Ratio (1-2) Salicylates (2.8-20) mg/dL Urine Opiates Screen (VILCUP=435) Ur Buprenorphine Scrn (CUTOFF=10) Ur Oxycodone Screen (BQF1TS=332) Urine Methadone Screen (QCTPJN=010) Ur Propoxyphene Screen (DHWSTO=875) Acetaminophen (10-30) ug/mL Ur Barbiturates Screen (OSCBYZ=167) Ur Tricyclics Screen (OIBEIJ=257) Ur Phencyclidine Scrn (CUTOFF=25) Ur Amphetamine Screen (FEGKID=494) U Methamphetamines Scrn (WJBXHJ=286) U Benzodiazepines Scrn (OWTQMF=136) U Cocaine Metab Screen (GNJSFB=610) U Marijuana (THC) Screen (CUTOFF=50) Ethyl Alcohol (0.00) gm% 05/27/18 05/27/18 Range/Units 13:08 13:31 WBC (3.98-10.04) K/mm3 RBC (3.98-5.22) M/mm3 Hgb (11.2-15.7) gm/L Hct (34.1-44.9) % MCV (79.4-94.8) fl MCH (25.6-32.2) pg MCHC (32.2-35.5) g/dl RDW Std Deviation (36.4-46.3) fL Plt Count (182-369) K/mm3 MPV (9.4-12.3) fl Neut % (Auto) (34.0-71.1) % Lymph % (Auto) (19.3-51.7) % Gove % (Auto) (4.7-12.5) % Eos % (Auto) (0.7-5.8) Baso % (Auto) (0.1-1.2) % Neut # (Auto) (1.56-6.13) K/mm3 Lymph # (Auto) (1.18-3.74) K/mm3 Gove # (Auto) (0.24-0.36) K/mm3 Eos # (Auto) (0.04-0.36) K/mm3 Baso # (Auto) (0.01-0.08) K/mm3 PT (9.5-12.1) SECONDS INR APTT (24-31) SECONDS Puncture Site ABG pH (7.35-7.45) ABG pCO2 (35.0-45.0) mmHg ABG pO2 (80.0-100.0) mmHg ABG HCO3 (22.0-26.0) meq/L ABG O2 Saturation (96.0-97.0) % ABG Base Excess (-2-2.0) ABG Hemoglobin (12.0-18.0) g/L ABG Oxyhemoglobin ABG Carboxyhemoglobin (0.00-1.50) %THgb ABG Methemoglobin (0.00-1.5) % Burt Test A-a Gradient mmHg O2 Delivery Device FiO2 (21.00-100.00) % Tidal Volume cc PEEP cmH20 Sodium (136-145) mEq/L Potassium (3.5-5.1) mEq/L Chloride (98-107) mEq/L Carbon Dioxide (21-32) mEq/L Anion Gap (5-15) BUN (7-18) mg/dL Creatinine (0.55-1.02) mg/dL Est Cr Clr Drug Dosing Estimated GFR (MDRD) (>60) mL/min BUN/Creatinine Ratio (14-18) Glucose 206 H (74-106) mg/dL POC Glucose 124 H (70-105) mg/dL Lactic Acid (0.4-2.0) mmol/L Calcium (8.5-10.1) mg/dL Magnesium (1.8-2.4) mg/dl Total Bilirubin (0.2-1.0) mg/dL AST (15-37) U/L ALT (14-59) U/L Alkaline Phosphatase (46-116) U/L CK-MB (CK-2) 3.0 (0-3.6) ng/ml Troponin I 0.221 H* (0.00-0.056) ng/mL C-Reactive Protein (<1.0) mg/dL NT-Pro-B Natriuret Pep (0-125) pg/mL Total Protein (6.4-8.2) g/dl Albumin (3.4-5.0) g/dl Globulin gm/dL Albumin/Globulin Ratio (1-2) Salicylates (2.8-20) mg/dL Urine Opiates Screen (RIGJVO=864) Ur Buprenorphine Scrn (CUTOFF=10) Ur Oxycodone Screen (ZEM0BV=775) Urine Methadone Screen (DPJZTY=722) Ur Propoxyphene Screen (BOBOGH=900) Acetaminophen (10-30) ug/mL Ur Barbiturates Screen (MORYUH=668) Ur Tricyclics Screen (FXCRDH=523) Ur Phencyclidine Scrn (CUTOFF=25) Ur Amphetamine Screen (NWENJB=165) U Methamphetamines Scrn (MNEQQT=785) U Benzodiazepines Scrn (MYLCKJ=088) U Cocaine Metab Screen (OBTYXS=029) U Marijuana (THC) Screen (CUTOFF=50) Ethyl Alcohol (0.00) gm% Result Diagrams: 05/30/18 05:20 05/30/18 05:20 Problem List Initiated/Reviewed/Updated: Yes Orders Last 24hrs: Active Orders 24 hr Category Date Time Status Admission Status [Patient Status] [ADT] Routine ADT 05/27/18 07:55 Active Accu Check [Blood Glucose Check, Bedside] [RC] Q1HR Care 05/27/18 08:55 Active Bedrest Bathroom Privileges [RC] ASDIRECTED Care 05/27/18 08:48 Active Cardiac Monitoring [RC] CONTINUOUS Care 05/27/18 08:48 Active EKG Documentation Completion [RC] ASDIRECTED Care 05/27/18 14:00 Active Height and Weight [RC] 04 Care 05/27/18 08:48 Active Insert Avalos Catheter [Insert Urinary Catheter] [OM.PC] Care 05/27/18 06:30 Ordered Q24H Intake and Output [RC] Q2HR Care 05/27/18 08:48 Active Oxygen Therapy [RC] PRN Care 05/27/18 08:48 Active Pulse Oximetry [RC] CONTINUOUS Care 05/27/18 08:48 Active RASS Sedation Scale [RC] ASDIRECTED Care 05/27/18 09:08 Active RT Aerosol Therapy [RC] ASDIRECTED Care 05/27/18 08:49 Active Urinary Catheter Assessment [RC] Q4HR Care 05/27/18 06:25 Active VTE/DVT Education [RC] DAILY Care 05/27/18 08:48 Active Ventilator Assessment [RT Ventilator, Adult] [RC] Care 05/27/18 06:15 Active ASDIRECTED Vital Signs [RC] Q4HR Care 05/27/18 08:48 Active Consult to Case Management/Dehydrogenation Operator [CONS] Cons 05/27/18 08:48 Active Routine Respiratory Care Assess and Treatment [CONS] Routine Cons 05/27/18 08:48 Active Nothing per Oral Now Diet [DIET] Diet 05/27/18 Lunch Active BASIC METABOLIC PANEL,BMP [CHEM] AM Lab 05/28/18 05:11 Ordered BASIC METABOLIC PANEL,BMP [CHEM] AM Lab 05/29/18 05:11 Ordered BASIC METABOLIC PANEL,BMP [CHEM] AM Lab 05/30/18 05:11 Ordered BASIC METABOLIC PANEL,BMP [CHEM] AM Lab 05/31/18 05:11 Ordered BASIC METABOLIC PANEL,BMP [CHEM] AM Lab 06/01/18 05:11 Ordered BASIC METABOLIC PANEL,BMP [CHEM] AM Lab 06/02/18 05:11 Ordered C-REACTIVE PROTEIN [CHEM] AM Lab 05/28/18 05:11 Ordered C-REACTIVE PROTEIN [CHEM] AM Lab 05/29/18 05:11 Ordered C-REACTIVE PROTEIN [CHEM] AM Lab 05/30/18 05:11 Ordered C-REACTIVE PROTEIN [CHEM] AM Lab 05/31/18 05:11 Ordered C-REACTIVE PROTEIN [CHEM] AM Lab 06/01/18 05:11 Ordered C-REACTIVE PROTEIN [CHEM] AM Lab 06/02/18 05:11 Ordered CBC WITH AUTO DIFF [HEME] AM Lab 05/28/18 05:11 Ordered CBC WITH AUTO DIFF [HEME] AM Lab 05/29/18 05:11 Ordered CBC WITH AUTO DIFF [HEME] AM Lab 05/30/18 05:11 Ordered CBC WITH AUTO DIFF [HEME] AM Lab 05/31/18 05:11 Ordered CBC WITH AUTO DIFF [HEME] AM Lab 06/01/18 05:11 Ordered CBC WITH AUTO DIFF [HEME] AM Lab 06/02/18 05:11 Ordered CKMB [CHEM] Q6H Lab 05/27/18 19:00 Ordered CKMB [CHEM] Q6H Lab 05/28/18 01:00 Ordered MAGNESIUM [CHEM] AM Lab 05/28/18 05:11 Ordered MAGNESIUM [CHEM] AM Lab 05/29/18 05:11 Ordered MAGNESIUM [CHEM] AM Lab 05/30/18 05:11 Ordered MAGNESIUM [CHEM] AM Lab 05/31/18 05:11 Ordered MAGNESIUM [CHEM] AM Lab 06/01/18 05:11 Ordered MAGNESIUM [CHEM] AM Lab 06/02/18 05:11 Ordered TROPONIN I [CHEM] Q6H Lab 05/27/18 19:00 Ordered TROPONIN I [CHEM] Q6H Lab 05/28/18 01:00 Ordered Acetaminophen [Tylenol] Med 05/27/18 08:48 Active 650 mg PO Q4H PRN Acetaminophen/HYDROcodone [[place] 325-5 MG] Med 05/27/18 08:48 Active 1 tab PO Q4H PRN Albuterol/Ipratropium [DuoNeb 3.0-0.5 MG/3 ML] Med 05/27/18 08:48 Active 3 ml NEB Q4H PRN Ampicillin/Sulbactam Na [Unasyn] 3 gm Med 05/27/18 11:00 Active Sodium Chloride 0.9% [Normal Saline] 100 ml IV Q6H Bisacodyl [Dulcolax] Med 05/27/18 08:48 Active 5 mg PO DAILY PRN Dextrose 5%-0.9% NaCl [Dextrose 5%-Normal Saline] 1,000 Med 05/27/18 12:45 Active ml IV ASDIRECTED Dextrose 50% in Water Med 05/27/18 13:03 Active 50 ml IVPUSH ASDIRECTED PRN Docusate Sodium [Colace] Med 05/27/18 08:48 Active 100 mg PO BID PRN Docusate Sodium/Sennosides [Senna Plus] Med 05/27/18 08:48 Active 1 tab PO BID PRN Enoxaparin [Lovenox] Med 05/27/18 09:00 Active 40 mg SUBCUT DAILY HYDROmorphone [Dilaudid] Med 05/27/18 08:48 Active 0.25 mg IVPUSH Q2H PRN LORazepam [Ativan] Med 05/27/18 08:48 Active 1 mg IV Q6H PRN LORazepam [Ativan] Med 05/27/18 08:45 Active 2 mg IVPUSH Q4H PRN Metoprolol Tartrate [Lopressor] Med 05/27/18 08:45 Active 5 mg IVPUSH Q4H PRN Ondansetron [Zofran] Med 05/27/18 08:48 Active 4 mg IV Q6H PRN Pharmacy to Dose - Magnesium R [Pharmacy to Dose - Med 05/27/18 08:45 Active Magnesium Replacement] 0 dose .XX ASDIRECTED PRN Pharmacy to Dose - Potassium R [Pharmacy to Dose - Med 05/27/18 08:45 Active Potassium Replacement] 0 dose .XX ASDIRECTED PRN Promethazine [Phenergan] 6.25 mg Med 05/27/18 08:48 Active Sodium Chloride 0.9% [Normal Saline] 50 ml IV Q6H Propofol [Diprivan 100 ML] 100 ml Med 05/27/18 09:15 Active IV TITRATE Temazepam [Restoril] Med 05/27/18 08:48 Active 7.5 mg PO BEDTIME PRN hydrALAZINE [Apresoline] Med 05/27/18 08:45 Active 20 mg IVPUSH Q4H PRN Desired Level of Sedation (RASS) [AST] Click To Edit Oth 05/27/18 09:08 Ordered Resuscitation Status Routine Resus Stat 05/27/18 08:48 Ordered EKG 12 Lead [EK] Stat Ther 05/27/18 14:00 Ordered Medication Orders Acetaminophen (Tylenol) 650 mg PO Q4H PRN PRN Reason: Pain (Mild 1-3)/fever Hydrocodone Bitart/Acetaminophen ([place] 325-5 Mg) 1 tab PO Q4H PRN PRN Reason: Pain (moderate 4-6) Albuterol/Ipratropium (Duoneb 3.0-0.5 Mg/3 Ml) 3 ml NEB Q4H PRN PRN Reason: Shortness Of Breath/wheezing Bisacodyl (Dulcolax) 5 mg PO DAILY PRN PRN Reason: Constipation Dextrose/Water (Dextrose 50% In Water) 50 ml IVPUSH ASDIRECTED PRN PRN Reason: Hypoglycemia Last Admin: 05/27/18 13:10 Dose: 50 ml Docusate Sodium (Colace) 100 mg PO BID PRN PRN Reason: Constipation Enoxaparin Sodium (Lovenox) 40 mg SUBCUT DAILY MAGO Last Admin: 05/27/18 10:33 Dose: 40 mg Hydralazine HCl (Apresoline) 20 mg IVPUSH Q4H PRN PRN Reason: Hypertension Hydromorphone HCl (Dilaudid) 0.25 mg IVPUSH Q2H PRN PRN Reason: Pain (severe 7-10) Promethazine HCl 6.25 mg/ (Sodium Chloride) 50.25 mls @ 100 mls/hr IV Q6H PRN PRN Reason: Nausea/Vomiting Ampicillin Sodium/Sulbactam (Sodium 3 gm/ Sodium Chloride) 100 mls @ 200 mls/ hr IV Q6H MAGO Last Admin: 05/27/18 12:38 Dose: 200 mls/hr Propofol (Diprivan 100 Ml) 100 mls @ 0.9 mls/hr IV TITRATE MAGO; Protocol Last Admin: 05/27/18 13:02 Dose: 100 mcg/kg/min, 45 mls/hr Titration: 05/27/18 12:56 Dose: 100 mcg/kg/min, 45 mls/hr Admin: 05/27/18 10:42 Dose: 100 mcg/kg/min, 45 mls/hr Titration: 05/27/18 10:42 Dose: 100 mcg/kg/min, 45 mls/hr Admin: 05/27/18 09:57 Dose: 100 mcg/kg/min, 45 mls/hr Dextrose/Sodium Chloride (Dextrose 5%-Normal Saline) 1,000 mls @ 150 mls/hr IV ASDIRECTED MAGO Lorazepam (Ativan) 2 mg IVPUSH Q4H PRN PRN Reason: Seizures Lorazepam (Ativan) 1 mg IV Q6H PRN PRN Reason: Anxiety Magnesium Sulfate (Pharmacy To Dose - Magnesium Replacement) 0 dose .XX ASDIRECTED PRN PRN Reason: RX TO WATCH MAG Metoprolol Tartrate (Lopressor) 5 mg IVPUSH Q4H PRN PRN Reason: Tachycardia Ondansetron HCl (Zofran) 4 mg IV Q6H PRN PRN Reason: Nausea/Vomiting Potassium Chloride (Pharmacy To Dose - Potassium Replacement) 0 dose .XX ASDIRECTED PRN PRN Reason: RX TO WATCH K Senna/Docusate Sodium (Senna Plus) 1 tab PO BID PRN PRN Reason: Constipation Temazepam (Restoril) 7.5 mg PO BEDTIME PRN PRN Reason: Sleep Assessment/Plan Comment:: Assessment/Plan: Acute: AMS - 2/2 Toxic/Metabolic Encephalopathy - Head CT scan shows no acute intra-cranial abnormality - MELANI is O.18 and Significant hypoglycemia - Currently on sedation due to mechanical ventilation Respiratory Failure w/ Possible Associated Aspiration - 2/2 AMS and Not able to Protect her Airway - ABG shows pH of 7.19, pCO2 of 58.7, pO2 of 81, HCO3 of 21.7, O2 Sat of 91.8 on Vent - Initial Vent Setting: AC 500/VT, 16/RR, 5/PEEP on 80% FiO2 - IV Unasyn for Aspiration Syndrome coverage Suicide Attempt via OD of Insulin - Carries a hx/o it in the past - Took for pens of [place] insulin - She has received dextrose en route and while in ED - She is currently on D5W for maintenance; will continue it - Accu-check Q1H and may change to [id number] as needed - 1:1 care once off vent - Tele-psych and SAC consult when appropriate Severe Hypoglycemia - Iatrogenic from significant amount of insulin she took - Hypoglycemia protocol plus on dextrose IV fluids Positive Troponin W/ Prolonged QT - Likely 2/2 Demand Ischemia - Malignant Hypertensive on presentation - CKMB is negative - Serial EKGs and will continue to monitor Malignant HTN - Carries a hx/o HTN - Documented BP of 203/132 and 148/102 mmHg - Now improved - Resume home BP meds along with PRN anti-hypertensive agents Chronic: Impaired Vision HTN Asthma GERD Hx/o Pancreatitis Fibroids OA/DJD Hx/o Suicide Attempt Depression DM1 and MANOJ Plan: Admit to ICU Vent Management with RASS of Moderate Sedation (-3) Continue D5W for glucose maintenance at 250 cc/hr Routine AM Labs Aspiration Precaution DVT/GI PPx: Lovenox SQ/PPI Accu-check Q1H and if needed 30mins Dietary Education and Dietary Weight SW/CM for d/c planning
--- NOTE | 2018-05-27 14:25 | PCM.SN ---
- Free Text/Narrative Note: Her troponin is trending up from 0.083 to 0.221. However her CKMB remains within normal limits. Her EKG shows sinus rhythm with prolonged QT at 463 (QTC 573). We will continue to monitor.
[2018-05-27] MEDS: Pantoprazole 40 MG Vial IVPUSH SCH (15:28)
[2018-05-27] MEDS: Dextrose 10% in Water 500 ML IV SCH ×2 (15:35→19:09)
[2018-05-27] MEDS ORDERED: 50% Dextrose in Water 50 ML Syringe IVPUSH PRN (20:27)
[2018-05-27] MEDS ORDERED: Potassium Chloride 20 MEQ Tab.ER PO ONE (22:00)
[2018-05-27] MEDS ORDERED: Magnesium Oxide 400 MG Tab PO ONE (22:00)
[2018-05-27] MEDS: Dextrose 10% in Water 1,000 ML IV SCH (22:03)
[2018-05-27] MEDS ORDERED: Magnesium Sulfate/Water 50 ML IV ONE (22:15)
[2018-05-27] MEDS: Potassium Chloride 100 ML IV SCH (23:16)
[2018-05-28] MEDS: Dextrose 10% in Water 1,000 ML IV SCH (00:03)
[2018-05-28] MEDS: Potassium Chloride 100 ML IV SCH ×5 (00:04→04:03)
[2018-05-28] MEDS: 50% Dextrose in Water 50 ML Syringe IVPUSH PRN ×9 (00:11→23:08)
[2018-05-28] MEDS ORDERED: Potassium Chloride 20 MEQ Tab.ER PO SCH (02:00)
[2018-05-28] MEDS: Pantoprazole 40 MG Vial IVPUSH SCH ×2 (03:05→15:03)
[2018-05-28] MEDS: Dextrose 10% in Water 500 ML IV SCH ×8 (03:43→23:08)
[2018-05-28] MEDS: Ampicillin/Sulbactam Na 3 GM in Sodium Chloride 0.9% 100 ML IV SCH ×3 (05:13→18:58)
--- NOTE | 2018-05-28 08:40 | PCM.PN ---
- General Info Date of Service: 05/28/18 Admission Dx/Problem (Free Text): Admission Diagnosis/Problem Admission Diagnosis/Problem Intentional overdose of drug by injectable substance Subjective Update: Follow Up Functional Status: Reports: Pain Controlled, Urinating. Denies: New Symptoms - Review of Systems General: Denies: Fever, Chills Systems Review Comment:: Sedated/Intubated on Mechanical Ventilator - Patient Data Vitals - Most Recent: Last Vital Signs Temp 36.9 C 05/28/18 04:00 Pulse 102 H 05/28/18 04:00 Resp 18 05/28/18 04:00 BP 145/75 H 05/28/18 04:00 Pulse Ox 100 05/28/18 08:10 Weight - Most Recent: 86.999 kg I&O - Last 24 Hours: Intake & Output 05/27/18 05/28/18 05/28/18 22:59 06:59 14:59 Intake Total 2625 3410 Output Total 465 1250 Balance 2160 2160 Lab Results Last 24 Hours: Laboratory Results - last 24 hr 05/27/18 05/27/18 05/27/18 Range/Units 08:35 09:01 10:02 WBC (3.98-10.04) K/mm3 RBC (3.98-5.22) M/mm3 Hgb (11.2-15.7) gm/L Hct (34.1-44.9) % MCV (79.4-94.8) fl MCH (25.6-32.2) pg MCHC (32.2-35.5) g/dl RDW Std Deviation (36.4-46.3) fL Plt Count (182-369) K/mm3 MPV (9.4-12.3) fl Neut % (Auto) (34.0-71.1) % Lymph % (Auto) (19.3-51.7) % Griggs % (Auto) (4.7-12.5) % Eos % (Auto) (0.7-5.8) Baso % (Auto) (0.1-1.2) % Neut # (Auto) (1.56-6.13) K/mm3 Lymph # (Auto) (1.18-3.74) K/mm3 Griggs # (Auto) (0.24-0.36) K/mm3 Eos # (Auto) (0.04-0.36) K/mm3 Baso # (Auto) (0.01-0.08) K/mm3 Puncture Site Rt brachial ABG pH 7.35 (7.35-7.45) ABG pCO2 31.4 L (35.0-45.0) mmHg ABG pO2 208.0 H* (80.0-100.0) mmHg ABG HCO3 17.0 L (22.0-26.0) meq/L ABG O2 Saturation 98.1 H (96.0-97.0) % ABG Base Excess -7.1 L (-2-2.0) Burt Test Positive A-a Gradient 265 mmHg O2 Delivery Device Ventilator FiO2 80.00 (21.00-100.00) % Tidal Volume 550.0 cc PEEP 5.0 cmH20 Sodium (136-145) mEq/L Potassium (3.5-5.1) mEq/L Chloride (98-107) mEq/L Carbon Dioxide (21-32) mEq/L Anion Gap (5-15) BUN (7-18) mg/dL Creatinine (0.55-1.02) mg/dL Est Cr Clr Drug Dosing mL/min Estimated GFR (MDRD) (>60) mL/min BUN/Creatinine Ratio (14-18) Glucose (74-106) mg/dL POC Glucose 206 H 175 H (70-105) mg/dL Calcium (8.5-10.1) mg/dL Magnesium (1.8-2.4) mg/dl CK-MB (CK-2) (0-3.6) ng/ml Troponin I (0.00-0.056) ng/mL C-Reactive Protein (<1.0) mg/dL 05/27/18 05/27/18 05/27/18 Range/Units 12:34 13:00 13:08 WBC (3.98-10.04) K/mm3 RBC (3.98-5.22) M/mm3 Hgb (11.2-15.7) gm/L Hct (34.1-44.9) % MCV (79.4-94.8) fl MCH (25.6-32.2) pg MCHC (32.2-35.5) g/dl RDW Std Deviation (36.4-46.3) fL Plt Count (182-369) K/mm3 MPV (9.4-12.3) fl Neut % (Auto) (34.0-71.1) % Lymph % (Auto) (19.3-51.7) % Griggs % (Auto) (4.7-12.5) % Eos % (Auto) (0.7-5.8) Baso % (Auto) (0.1-1.2) % Neut # (Auto) (1.56-6.13) K/mm3 Lymph # (Auto) (1.18-3.74) K/mm3 Griggs # (Auto) (0.24-0.36) K/mm3 Eos # (Auto) (0.04-0.36) K/mm3 Baso # (Auto) (0.01-0.08) K/mm3 Puncture Site ABG pH (7.35-7.45) ABG pCO2 (35.0-45.0) mmHg ABG pO2 (80.0-100.0) mmHg ABG HCO3 (22.0-26.0) meq/L ABG O2 Saturation (96.0-97.0) % ABG Base Excess (-2-2.0) Burt Test A-a Gradient mmHg O2 Delivery Device FiO2 (21.00-100.00) % Tidal Volume cc PEEP cmH20 Sodium (136-145) mEq/L Potassium (3.5-5.1) mEq/L Chloride (98-107) mEq/L Carbon Dioxide (21-32) mEq/L Anion Gap (5-15) BUN (7-18) mg/dL Creatinine (0.55-1.02) mg/dL Est Cr Clr Drug Dosing mL/min Estimated GFR (MDRD) (>60) mL/min BUN/Creatinine Ratio (14-18) Glucose 206 H (74-106) mg/dL POC Glucose 66 L 41 L (70-105) mg/dL Calcium (8.5-10.1) mg/dL Magnesium (1.8-2.4) mg/dl CK-MB (CK-2) 3.0 (0-3.6) ng/ml Troponin I 0.221 H* (0.00-0.056) ng/mL C-Reactive Protein (<1.0) mg/dL 05/27/18 05/27/18 05/27/18 Range/Units 13:31 14:07 15:05 WBC (3.98-10.04) K/mm3 RBC (3.98-5.22) M/mm3 Hgb (11.2-15.7) gm/L Hct (34.1-44.9) % MCV (79.4-94.8) fl MCH (25.6-32.2) pg MCHC (32.2-35.5) g/dl RDW Std Deviation (36.4-46.3) fL Plt Count (182-369) K/mm3 MPV (9.4-12.3) fl Neut % (Auto) (34.0-71.1) % Lymph % (Auto) (19.3-51.7) % Griggs % (Auto) (4.7-12.5) % Eos % (Auto) (0.7-5.8) Baso % (Auto) (0.1-1.2) % Neut # (Auto) (1.56-6.13) K/mm3 Lymph # (Auto) (1.18-3.74) K/mm3 Griggs # (Auto) (0.24-0.36) K/mm3 Eos # (Auto) (0.04-0.36) K/mm3 Baso # (Auto) (0.01-0.08) K/mm3 Puncture Site ABG pH (7.35-7.45) ABG pCO2 (35.0-45.0) mmHg ABG pO2 (80.0-100.0) mmHg ABG HCO3 (22.0-26.0) meq/L ABG O2 Saturation (96.0-97.0) % ABG Base Excess (-2-2.0) Burt Test A-a Gradient mmHg O2 Delivery Device FiO2 (21.00-100.00) % Tidal Volume cc PEEP cmH20 Sodium (136-145) mEq/L Potassium (3.5-5.1) mEq/L Chloride (98-107) mEq/L Carbon Dioxide (21-32) mEq/L Anion Gap (5-15) BUN (7-18) mg/dL Creatinine (0.55-1.02) mg/dL Est Cr Clr Drug Dosing mL/min Estimated GFR (MDRD) (>60) mL/min BUN/Creatinine Ratio (14-18) Glucose (74-106) mg/dL POC Glucose 124 H 112 H 66 L (70-105) mg/dL Calcium (8.5-10.1) mg/dL Magnesium (1.8-2.4) mg/dl CK-MB (CK-2) (0-3.6) ng/ml Troponin I (0.00-0.056) ng/mL C-Reactive Protein (<1.0) mg/dL 05/27/18 05/27/18 05/27/18 Range/Units 16:04 17:07 17:36 WBC (3.98-10.04) K/mm3 RBC (3.98-5.22) M/mm3 Hgb (11.2-15.7) gm/L Hct (34.1-44.9) % MCV (79.4-94.8) fl MCH (25.6-32.2) pg MCHC (32.2-35.5) g/dl RDW Std Deviation (36.4-46.3) fL Plt Count (182-369) K/mm3 MPV (9.4-12.3) fl Neut % (Auto) (34.0-71.1) % Lymph % (Auto) (19.3-51.7) % Griggs % (Auto) (4.7-12.5) % Eos % (Auto) (0.7-5.8) Baso % (Auto) (0.1-1.2) % Neut # (Auto) (1.56-6.13) K/mm3 Lymph # (Auto) (1.18-3.74) K/mm3 Griggs # (Auto) (0.24-0.36) K/mm3 Eos # (Auto) (0.04-0.36) K/mm3 Baso # (Auto) (0.01-0.08) K/mm3 Puncture Site ABG pH (7.35-7.45) ABG pCO2 (35.0-45.0) mmHg ABG pO2 (80.0-100.0) mmHg ABG HCO3 (22.0-26.0) meq/L ABG O2 Saturation (96.0-97.0) % ABG Base Excess (-2-2.0) Burt Test A-a Gradient mmHg O2 Delivery Device FiO2 (21.00-100.00) % Tidal Volume cc PEEP cmH20 Sodium (136-145) mEq/L Potassium (3.5-5.1) mEq/L Chloride (98-107) mEq/L Carbon Dioxide (21-32) mEq/L Anion Gap (5-15) BUN (7-18) mg/dL Creatinine (0.55-1.02) mg/dL Est Cr Clr Drug Dosing mL/min Estimated GFR (MDRD) (>60) mL/min BUN/Creatinine Ratio (14-18) Glucose (74-106) mg/dL POC Glucose 68 L 33 L 119 H (70-105) mg/dL Calcium (8.5-10.1) mg/dL Magnesium (1.8-2.4) mg/dl CK-MB (CK-2) (0-3.6) ng/ml Troponin I (0.00-0.056) ng/mL C-Reactive Protein (<1.0) mg/dL 05/27/18 05/27/18 05/27/18 Range/Units 18:10 18:48 18:55 WBC (3.98-10.04) K/mm3 RBC (3.98-5.22) M/mm3 Hgb (11.2-15.7) gm/L Hct (34.1-44.9) % MCV (79.4-94.8) fl MCH (25.6-32.2) pg MCHC (32.2-35.5) g/dl RDW Std Deviation (36.4-46.3) fL Plt Count (182-369) K/mm3 MPV (9.4-12.3) fl Neut % (Auto) (34.0-71.1) % Lymph % (Auto) (19.3-51.7) % Griggs % (Auto) (4.7-12.5) % Eos % (Auto) (0.7-5.8) Baso % (Auto) (0.1-1.2) % Neut # (Auto) (1.56-6.13) K/mm3 Lymph # (Auto) (1.18-3.74) K/mm3 Griggs # (Auto) (0.24-0.36) K/mm3 Eos # (Auto) (0.04-0.36) K/mm3 Baso # (Auto) (0.01-0.08) K/mm3 Puncture Site ABG pH (7.35-7.45) ABG pCO2 (35.0-45.0) mmHg ABG pO2 (80.0-100.0) mmHg ABG HCO3 (22.0-26.0) meq/L ABG O2 Saturation (96.0-97.0) % ABG Base Excess (-2-2.0) Burt Test A-a Gradient mmHg O2 Delivery Device FiO2 (21.00-100.00) % Tidal Volume cc PEEP cmH20 Sodium 142 (136-145) mEq/L Potassium 3.2 L (3.5-5.1) mEq/L Chloride 110 H (98-107) mEq/L Carbon Dioxide 22 (21-32) mEq/L Anion Gap 13.2 (5-15) BUN 15 (7-18) mg/dL Creatinine 1.1 H (0.55-1.02) mg/dL Est Cr Clr Drug Dosing 63.22 mL/min Estimated GFR (MDRD) 52 (>60) mL/min BUN/Creatinine Ratio 13.6 L (14-18) Glucose 73 L (74-106) mg/dL POC Glucose 68 L 71 (70-105) mg/dL Calcium 7.8 L (8.5-10.1) mg/dL Magnesium 1.5 L (1.8-2.4) mg/dl CK-MB (CK-2) 2.4 (0-3.6) ng/ml Troponin I 0.241 H* (0.00-0.056) ng/mL C-Reactive Protein (<1.0) mg/dL 05/27/18 05/27/18 05/27/18 Range/Units 19:40 19:54 21:17 WBC (3.98-10.04) K/mm3 RBC (3.98-5.22) M/mm3 Hgb (11.2-15.7) gm/L Hct (34.1-44.9) % MCV (79.4-94.8) fl MCH (25.6-32.2) pg MCHC (32.2-35.5) g/dl RDW Std Deviation (36.4-46.3) fL Plt Count (182-369) K/mm3 MPV (9.4-12.3) fl Neut % (Auto) (34.0-71.1) % Lymph % (Auto) (19.3-51.7) % Griggs % (Auto) (4.7-12.5) % Eos % (Auto) (0.7-5.8) Baso % (Auto) (0.1-1.2) % Neut # (Auto) (1.56-6.13) K/mm3 Lymph # (Auto) (1.18-3.74) K/mm3 Griggs # (Auto) (0.24-0.36) K/mm3 Eos # (Auto) (0.04-0.36) K/mm3 Baso # (Auto) (0.01-0.08) K/mm3 Puncture Site Rt radial ABG pH 7.39 (7.35-7.45) ABG pCO2 32.1 L (35.0-45.0) mmHg ABG pO2 104.0 H (80.0-100.0) mmHg ABG HCO3 19.2 L (22.0-26.0) meq/L ABG O2 Saturation 96.9 (96.0-97.0) % ABG Base Excess -4.5 L (-2-2.0) Burt Test A-a Gradient 80 mmHg O2 Delivery Device Ac FiO2 35.00 (21.00-100.00) % Tidal Volume 550.0 cc PEEP 5.0 cmH20 Sodium (136-145) mEq/L Potassium (3.5-5.1) mEq/L Chloride (98-107) mEq/L Carbon Dioxide (21-32) mEq/L Anion Gap (5-15) BUN (7-18) mg/dL Creatinine (0.55-1.02) mg/dL Est Cr Clr Drug Dosing mL/min Estimated GFR (MDRD) (>60) mL/min BUN/Creatinine Ratio (14-18) Glucose (74-106) mg/dL POC Glucose 75 39 L (70-105) mg/dL Calcium (8.5-10.1) mg/dL Magnesium (1.8-2.4) mg/dl CK-MB (CK-2) (0-3.6) ng/ml Troponin I (0.00-0.056) ng/mL C-Reactive Protein (<1.0) mg/dL 05/27/18 05/27/18 05/27/18 Range/Units 22:27 23:03 23:34 WBC (3.98-10.04) K/mm3 RBC (3.98-5.22) M/mm3 Hgb (11.2-15.7) gm/L Hct (34.1-44.9) % MCV (79.4-94.8) fl MCH (25.6-32.2) pg MCHC (32.2-35.5) g/dl RDW Std Deviation (36.4-46.3) fL Plt Count (182-369) K/mm3 MPV (9.4-12.3) fl Neut % (Auto) (34.0-71.1) % Lymph % (Auto) (19.3-51.7) % Griggs % (Auto) (4.7-12.5) % Eos % (Auto) (0.7-5.8) Baso % (Auto) (0.1-1.2) % Neut # (Auto) (1.56-6.13) K/mm3 Lymph # (Auto) (1.18-3.74) K/mm3 Griggs # (Auto) (0.24-0.36) K/mm3 Eos # (Auto) (0.04-0.36) K/mm3 Baso # (Auto) (0.01-0.08) K/mm3 Puncture Site ABG pH (7.35-7.45) ABG pCO2 (35.0-45.0) mmHg ABG pO2 (80.0-100.0) mmHg ABG HCO3 (22.0-26.0) meq/L ABG O2 Saturation (96.0-97.0) % ABG Base Excess (-2-2.0) Burt Test A-a Gradient mmHg O2 Delivery Device FiO2 (21.00-100.00) % Tidal Volume cc PEEP cmH20 Sodium (136-145) mEq/L Potassium (3.5-5.1) mEq/L Chloride (98-107) mEq/L Carbon Dioxide (21-32) mEq/L Anion Gap (5-15) BUN (7-18) mg/dL Creatinine (0.55-1.02) mg/dL Est Cr Clr Drug Dosing mL/min Estimated GFR (MDRD) (>60) mL/min BUN/Creatinine Ratio (14-18) Glucose (74-106) mg/dL POC Glucose 63 L 104 80 (70-105) mg/dL Calcium (8.5-10.1) mg/dL Magnesium (1.8-2.4) mg/dl CK-MB (CK-2) (0-3.6) ng/ml Troponin I (0.00-0.056) ng/mL C-Reactive Protein (<1.0) mg/dL 05/28/18 05/28/18 05/28/18 Range/Units 00:07 00:39 01:06 WBC (3.98-10.04) K/mm3 RBC (3.98-5.22) M/mm3 Hgb (11.2-15.7) gm/L Hct (34.1-44.9) % MCV (79.4-94.8) fl MCH (25.6-32.2) pg MCHC (32.2-35.5) g/dl RDW Std Deviation (36.4-46.3) fL Plt Count (182-369) K/mm3 MPV (9.4-12.3) fl Neut % (Auto) (34.0-71.1) % Lymph % (Auto) (19.3-51.7) % Griggs % (Auto) (4.7-12.5) % Eos % (Auto) (0.7-5.8) Baso % (Auto) (0.1-1.2) % Neut # (Auto) (1.56-6.13) K/mm3 Lymph # (Auto) (1.18-3.74) K/mm3 Griggs # (Auto) (0.24-0.36) K/mm3 Eos # (Auto) (0.04-0.36) K/mm3 Baso # (Auto) (0.01-0.08) K/mm3 Puncture Site ABG pH (7.35-7.45) ABG pCO2 (35.0-45.0) mmHg ABG pO2 (80.0-100.0) mmHg ABG HCO3 (22.0-26.0) meq/L ABG O2 Saturation (96.0-97.0) % ABG Base Excess (-2-2.0) Burt Test A-a Gradient mmHg O2 Delivery Device FiO2 (21.00-100.00) % Tidal Volume cc PEEP cmH20 Sodium (136-145) mEq/L Potassium (3.5-5.1) mEq/L Chloride (98-107) mEq/L Carbon Dioxide (21-32) mEq/L Anion Gap (5-15) BUN (7-18) mg/dL Creatinine (0.55-1.02) mg/dL Est Cr Clr Drug Dosing mL/min Estimated GFR (MDRD) (>60) mL/min BUN/Creatinine Ratio (14-18) Glucose (74-106) mg/dL POC Glucose 43 L 103 100 (70-105) mg/dL Calcium (8.5-10.1) mg/dL Magnesium (1.8-2.4) mg/dl CK-MB (CK-2) (0-3.6) ng/ml Troponin I (0.00-0.056) ng/mL C-Reactive Protein (<1.0) mg/dL 05/28/18 05/28/18 05/28/18 Range/Units 01:35 01:40 02:14 WBC (3.98-10.04) K/mm3 RBC (3.98-5.22) M/mm3 Hgb (11.2-15.7) gm/L Hct (34.1-44.9) % MCV (79.4-94.8) fl MCH (25.6-32.2) pg MCHC (32.2-35.5) g/dl RDW Std Deviation (36.4-46.3) fL Plt Count (182-369) K/mm3 MPV (9.4-12.3) fl Neut % (Auto) (34.0-71.1) % Lymph % (Auto) (19.3-51.7) % Griggs % (Auto) (4.7-12.5) % Eos % (Auto) (0.7-5.8) Baso % (Auto) (0.1-1.2) % Neut # (Auto) (1.56-6.13) K/mm3 Lymph # (Auto) (1.18-3.74) K/mm3 Griggs # (Auto) (0.24-0.36) K/mm3 Eos # (Auto) (0.04-0.36) K/mm3 Baso # (Auto) (0.01-0.08) K/mm3 Puncture Site ABG pH (7.35-7.45) ABG pCO2 (35.0-45.0) mmHg ABG pO2 (80.0-100.0) mmHg ABG HCO3 (22.0-26.0) meq/L ABG O2 Saturation (96.0-97.0) % ABG Base Excess (-2-2.0) Burt Test A-a Gradient mmHg O2 Delivery Device FiO2 (21.00-100.00) % Tidal Volume cc PEEP cmH20 Sodium (136-145) mEq/L Potassium (3.5-5.1) mEq/L Chloride (98-107) mEq/L Carbon Dioxide (21-32) mEq/L Anion Gap (5-15) BUN (7-18) mg/dL Creatinine (0.55-1.02) mg/dL Est Cr Clr Drug Dosing mL/min Estimated GFR (MDRD) (>60) mL/min BUN/Creatinine Ratio (14-18) Glucose (74-106) mg/dL POC Glucose 71 100 (70-105) mg/dL Calcium (8.5-10.1) mg/dL Magnesium (1.8-2.4) mg/dl CK-MB (CK-2) 1.7 (0-3.6) ng/ml Troponin I 0.242 H* (0.00-0.056) ng/mL C-Reactive Protein (<1.0) mg/dL 05/28/18 05/28/18 05/28/18 Range/Units 02:42 03:14 03:44 WBC (3.98-10.04) K/mm3 RBC (3.98-5.22) M/mm3 Hgb (11.2-15.7) gm/L Hct (34.1-44.9) % MCV (79.4-94.8) fl MCH (25.6-32.2) pg MCHC (32.2-35.5) g/dl RDW Std Deviation (36.4-46.3) fL Plt Count (182-369) K/mm3 MPV (9.4-12.3) fl Neut % (Auto) (34.0-71.1) % Lymph % (Auto) (19.3-51.7) % Griggs % (Auto) (4.7-12.5) % Eos % (Auto) (0.7-5.8) Baso % (Auto) (0.1-1.2) % Neut # (Auto) (1.56-6.13) K/mm3 Lymph # (Auto) (1.18-3.74) K/mm3 Griggs # (Auto) (0.24-0.36) K/mm3 Eos # (Auto) (0.04-0.36) K/mm3 Baso # (Auto) (0.01-0.08) K/mm3 Puncture Site ABG pH (7.35-7.45) ABG pCO2 (35.0-45.0) mmHg ABG pO2 (80.0-100.0) mmHg ABG HCO3 (22.0-26.0) meq/L ABG O2 Saturation (96.0-97.0) % ABG Base Excess (-2-2.0) Burt Test A-a Gradient mmHg O2 Delivery Device FiO2 (21.00-100.00) % Tidal Volume cc PEEP cmH20 Sodium (136-145) mEq/L Potassium (3.5-5.1) mEq/L Chloride (98-107) mEq/L Carbon Dioxide (21-32) mEq/L Anion Gap (5-15) BUN (7-18) mg/dL Creatinine (0.55-1.02) mg/dL Est Cr Clr Drug Dosing mL/min Estimated GFR (MDRD) (>60) mL/min BUN/Creatinine Ratio (14-18) Glucose (74-106) mg/dL POC Glucose 93 64 L 117 H (70-105) mg/dL Calcium (8.5-10.1) mg/dL Magnesium (1.8-2.4) mg/dl CK-MB (CK-2) (0-3.6) ng/ml Troponin I (0.00-0.056) ng/mL C-Reactive Protein (<1.0) mg/dL 05/28/18 05/28/18 05/28/18 Range/Units 04:14 04:47 05:52 WBC 8.22 (3.98-10.04) K/mm3 RBC 3.23 L (3.98-5.22) M/mm3 Hgb 11.8 (11.2-15.7) gm/L Hct 33.8 L (34.1-44.9) % MCV 104.6 H (79.4-94.8) fl MCH 36.5 H (25.6-32.2) pg MCHC 34.9 (32.2-35.5) g/dl RDW Std Deviation 45.0 (36.4-46.3) fL Plt Count 109 L (182-369) K/mm3 MPV 9.8 (9.4-12.3) fl Neut % (Auto) 81.8 H (34.0-71.1) % Lymph % (Auto) 11.6 L (19.3-51.7) % Griggs % (Auto) 5.2 (4.7-12.5) % Eos % (Auto) 0.9 (0.7-5.8) Baso % (Auto) 0.1 (0.1-1.2) % Neut # (Auto) 6.73 H (1.56-6.13) K/mm3 Lymph # (Auto) 0.95 L (1.18-3.74) K/mm3 Griggs # (Auto) 0.43 H (0.24-0.36) K/mm3 Eos # (Auto) 0.07 (0.04-0.36) K/mm3 Baso # (Auto) 0.01 (0.01-0.08) K/mm3 Puncture Site ABG pH (7.35-7.45) ABG pCO2 (35.0-45.0) mmHg ABG pO2 (80.0-100.0) mmHg ABG HCO3 (22.0-26.0) meq/L ABG O2 Saturation (96.0-97.0) % ABG Base Excess (-2-2.0) Burt Test A-a Gradient mmHg O2 Delivery Device FiO2 (21.00-100.00) % Tidal Volume cc PEEP cmH20 Sodium (136-145) mEq/L Potassium (3.5-5.1) mEq/L Chloride (98-107) mEq/L Carbon Dioxide (21-32) mEq/L Anion Gap (5-15) BUN (7-18) mg/dL Creatinine (0.55-1.02) mg/dL Est Cr Clr Drug Dosing mL/min Estimated GFR (MDRD) (>60) mL/min BUN/Creatinine Ratio (14-18) Glucose (74-106) mg/dL POC Glucose 102 102 (70-105) mg/dL Calcium (8.5-10.1) mg/dL Magnesium (1.8-2.4) mg/dl CK-MB (CK-2) (0-3.6) ng/ml Troponin I (0.00-0.056) ng/mL C-Reactive Protein (<1.0) mg/dL 05/28/18 05/28/18 05/28/18 Range/Units 05:52 06:07 06:46 WBC (3.98-10.04) K/mm3 RBC (3.98-5.22) M/mm3 Hgb (11.2-15.7) gm/L Hct (34.1-44.9) % MCV (79.4-94.8) fl MCH (25.6-32.2) pg MCHC (32.2-35.5) g/dl RDW Std Deviation (36.4-46.3) fL Plt Count (182-369) K/mm3 MPV (9.4-12.3) fl Neut % (Auto) (34.0-71.1) % Lymph % (Auto) (19.3-51.7) % [place] % (Auto) (4.7-12.5) % Eos % (Auto) (0.7-5.8) Baso % (Auto) (0.1-1.2) % Neut # (Auto) (1.56-6.13) K/mm3 Lymph # (Auto) (1.18-3.74) K/mm3 [place] # (Auto) (0.24-0.36) K/mm3 Eos # (Auto) (0.04-0.36) K/mm3 Baso # (Auto) (0.01-0.08) K/mm3 Puncture Site ABG pH (7.35-7.45) ABG pCO2 (35.0-45.0) mmHg ABG pO2 (80.0-100.0) mmHg ABG HCO3 (22.0-26.0) meq/L ABG O2 Saturation (96.0-97.0) % ABG Base Excess (-2-2.0) Burt Test A-a Gradient mmHg O2 Delivery Device FiO2 (21.00-100.00) % Tidal Volume cc PEEP cmH20 Sodium 137 (136-145) mEq/L Potassium 3.6 (3.5-5.1) mEq/L Chloride 105 (98-107) mEq/L Carbon Dioxide 20 L (21-32) mEq/L Anion Gap 15.6 H (5-15) BUN 10 (7-18) mg/dL Creatinine 1.1 H (0.55-1.02) mg/dL Est Cr Clr Drug Dosing 63.22 mL/min Estimated GFR (MDRD) 52 (>60) mL/min BUN/Creatinine Ratio 9.1 L (14-18) Glucose 43 L (74-106) mg/dL POC Glucose 42 L 98 (70-105) mg/dL Calcium 7.3 L (8.5-10.1) mg/dL Magnesium 1.5 L (1.8-2.4) mg/dl CK-MB (CK-2) (0-3.6) ng/ml Troponin I (0.00-0.056) ng/mL C-Reactive Protein 2.7 H* (<1.0) mg/dL 05/28/18 Range/Units 07:54 WBC (3.98-10.04) K/mm3 RBC (3.98-5.22) M/mm3 Hgb (11.2-15.7) gm/L Hct (34.1-44.9) % MCV (79.4-94.8) fl MCH (25.6-32.2) pg MCHC (32.2-35.5) g/dl RDW Std Deviation (36.4-46.3) fL Plt Count (182-369) K/mm3 MPV (9.4-12.3) fl Neut % (Auto) (34.0-71.1) % Lymph % (Auto) (19.3-51.7) % [place] % (Auto) (4.7-12.5) % Eos % (Auto) (0.7-5.8) Baso % (Auto) (0.1-1.2) % Neut # (Auto) (1.56-6.13) K/mm3 Lymph # (Auto) (1.18-3.74) K/mm3 [place] # (Auto) (0.24-0.36) K/mm3 Eos # (Auto) (0.04-0.36) K/mm3 Baso # (Auto) (0.01-0.08) K/mm3 Puncture Site ABG pH (7.35-7.45) ABG pCO2 (35.0-45.0) mmHg ABG pO2 (80.0-100.0) mmHg ABG HCO3 (22.0-26.0) meq/L ABG O2 Saturation (96.0-97.0) % ABG Base Excess (-2-2.0) Burt Test A-a Gradient mmHg O2 Delivery Device FiO2 (21.00-100.00) % Tidal Volume cc PEEP cmH20 Sodium (136-145) mEq/L Potassium (3.5-5.1) mEq/L Chloride (98-107) mEq/L Carbon Dioxide (21-32) mEq/L Anion Gap (5-15) BUN (7-18) mg/dL Creatinine (0.55-1.02) mg/dL Est Cr Clr Drug Dosing mL/min Estimated GFR (MDRD) (>60) mL/min BUN/Creatinine Ratio (14-18) Glucose (74-106) mg/dL POC Glucose 78 (70-105) mg/dL Calcium (8.5-10.1) mg/dL Magnesium (1.8-2.4) mg/dl CK-MB (CK-2) (0-3.6) ng/ml Troponin I (0.00-0.056) ng/mL C-Reactive Protein (<1.0) mg/dL Med Orders - Current: Current Medications Acetaminophen (Tylenol) 650 mg PO Q4H PRN PRN Reason: Pain (Mild 1-3)/fever Hydrocodone Bitart/Acetaminophen ([place] 325-5 Mg) 1 tab PO Q4H PRN PRN Reason: Pain (moderate 4-6) Albuterol/Ipratropium (Duoneb 3.0-0.5 Mg/3 Ml) 3 ml NEB Q4H PRN PRN Reason: Shortness Of Breath/wheezing Bisacodyl (Dulcolax) 5 mg PO DAILY PRN PRN Reason: Constipation Dextrose/Water (Dextrose 50% In Water) 50 ml IVPUSH ASDIRECTED PRN PRN Reason: Hypoglycemia Last Admin: 05/28/18 07:58 Dose: 25 ml Docusate Sodium (Colace) 100 mg PO BID PRN PRN Reason: Constipation Enoxaparin Sodium (Lovenox) 40 mg SUBCUT DAILY MAGO Last Admin: 05/27/18 10:33 Dose: 40 mg Hydralazine HCl (Apresoline) 20 mg IVPUSH Q4H PRN PRN Reason: Hypertension Hydromorphone HCl (Dilaudid) 0.25 mg IVPUSH Q2H PRN PRN Reason: Pain (severe 7-10) Promethazine HCl 6.25 mg/ (Sodium Chloride) 50.25 mls @ 100 mls/hr IV Q6H PRN PRN Reason: Nausea/Vomiting Ampicillin Sodium/Sulbactam (Sodium 3 gm/ Sodium Chloride) 100 mls @ 200 mls/ hr IV Q6H MAGO Last Admin: 05/28/18 05:13 Dose: 200 mls/hr Propofol (Diprivan 100 Ml) 100 mls @ 0.9 mls/hr IV TITRATE MAGO; Protocol Last Titration: 05/28/18 07:30 Dose: 60 mcg/kg/min, 27 mls/hr Dextrose/Water (Dextrose 10% In Water) 500 mls @ 300 mls/hr IV ASDIRECTED MAGO Last Admin: 05/28/18 07:42 Dose: 300 mls/hr Lorazepam (Ativan) 2 mg IVPUSH Q4H PRN PRN Reason: Seizures Lorazepam (Ativan) 1 mg IV Q6H PRN PRN Reason: Anxiety Magnesium Sulfate (Pharmacy To Dose - Magnesium Replacement) 0 dose .XX ASDIRECTED PRN PRN Reason: RX TO WATCH MAG Metoprolol Tartrate (Lopressor) 5 mg IVPUSH Q4H PRN PRN Reason: Tachycardia Ondansetron HCl (Zofran) 4 mg IV Q6H PRN PRN Reason: Nausea/Vomiting Pantoprazole Sodium (Protonix Iv) 40 mg IVPUSH Q12H [facility] Last Admin: 05/28/18 03:05 Dose: 40 mg Potassium Chloride (Pharmacy To Dose - Potassium Replacement) 0 dose .XX ASDIRECTED PRN PRN Reason: RX TO WATCH K Senna/Docusate Sodium (Senna Plus) 1 tab PO BID PRN PRN Reason: Constipation Temazepam (Restoril) 7.5 mg PO BEDTIME PRN PRN Reason: Sleep Discontinued Medications Clonidine HCl (Catapres-Tts 3) 0.3 mg TRDERM Q7D ONE Stop: 05/27/18 09:01 Last Admin: 05/27/18 09:59 Dose: Not Given Dextrose/Water (Dextrose 50% In Water) Confirm Administered Dose 50 ml .ROUTE .STK-MED ONE Stop: 05/27/18 06:23 Last Admin: 05/27/18 14:53 Dose: Not Given Dextrose/Water (Dextrose 50% In Water) Confirm Administered Dose 50 ml .ROUTE .STK-MED ONE Stop: 05/27/18 13:07 Last Admin: 05/27/18 13:12 Dose: Not Given Dextrose/Water (Dextrose 50% In Water) 50 ml IVPUSH ASDIRECTED PRN PRN Reason: Hypoglycemia Dextrose/Sodium Chloride (Dextrose 5%-Normal Saline) Confirm Administered Dose 1 ,000 mls @ as directed .ROUTE .STK-MED ONE Stop: 05/27/18 05:55 Last Admin: 05/27/18 14:53 Dose: Not Given Propofol (Diprivan 100 Ml) Confirm Administered Dose 100 mls @ as directed .ROUTE .STK-MED ONE Stop: 05/27/18 06:16 Last Admin: 05/27/18 14:53 Dose: Not Given Dextrose/Sodium Chloride (Dextrose 5%-Normal Saline) Confirm Administered Dose 1 ,000 mls @ as directed .ROUTE .STK-MED ONE Stop: 05/27/18 07:00 Last Admin: 05/27/18 14:53 Dose: Not Given Propofol (Diprivan 100 Ml) Confirm Administered Dose 100 mls @ as directed .ROUTE .STK-MED ONE Stop: 05/27/18 08:21 Last Admin: 05/27/18 10:33 Dose: Not Given Ceftriaxone Sodium 1 gm/ (Sodium Chloride) 100 mls @ 200 mls/hr IV Q24H [facility] Last Admin: 05/27/18 14:54 Dose: Not Given Magnesium Sulfate 2 gm/ Premix 50 mls @ 25 mls/hr IV ONETIME ONE Stop: 05/27/18 11:14 Last Admin: 05/27/18 10:30 Dose: 25 mls/hr Dextrose/Sodium Chloride (Dextrose 5%-Normal Saline) 1,000 mls @ 125 mls/hr IV ASDIRECTED MAGO Last Infusion: 05/27/18 14:55 Dose: 200 mls/hr Dextrose/Sodium Chloride (Dextrose 5%-Normal Saline) Confirm Administered Dose 1 ,000 mls @ as directed .ROUTE .STK-MED ONE Stop: 05/27/18 12:33 Last Admin: 05/27/18 13:05 Dose: Not Given Dextrose/Sodium Chloride (Dextrose 5%-Normal Saline) 1,000 mls @ 150 mls/hr IV ASDIRECTED MAGO Dextrose/Sodium Chloride (Dextrose 5%-Normal Saline) 1,000 mls @ 200 mls/hr IV ASDIRECTED MAGO Dextrose/Water (Dextrose 10% In Water) 500 mls @ 150 mls/hr IV ASDIRECTED MAGO Last Infusion: 05/27/18 19:10 Dose: 200 mls/hr Dextrose/Water (Dextrose 10% In Water) 1,000 mls @ 300 mls/hr IV ASDIRECTED MAGO Last Admin: 05/28/18 00:03 Dose: 300 mls/hr Potassium Chloride (Kcl 10 Meq In Water 100 Ml) 100 mls @ 100 mls/hr IV Q1H [facility] Stop: 05/28/18 03:59 Last Admin: 05/28/18 04:03 Dose: 100 mls/hr Magnesium Sulfate (Magnesium Sulfate 2 Gm In Water 50 Ml) 50 mls @ 25 mls/hr IV ONETIME ONE Stop: 05/28/18 00:14 Last Admin: 05/27/18 23:16 Dose: 25 mls/hr Midazolam HCl (Versed 5 Mg/Ml) 50 mg .ROUTE .STK-MED ONE Stop: 05/27/18 05:51 Midazolam HCl (Versed 1 Mg/Ml) 10 mg .ROUTE .STK-MED ONE Stop: 05/27/18 05:51 Succinylcholine Chloride (Quelicin) 200 mg .ROUTE .STK-MED ONE Stop: 05/27/18 05:51 Vecuronium [facility] (Vecuronium) 10 mg .ROUTE .STK-MED ONE Stop: 05/27/18 05:51 - Exam General: Sedated, Other (She is able to move and respond with sternal rub or painful stimuli) HEENT: Pupils Equal, Other (dilated and sluggish pupils) Lungs: Other (mechanical breath sounds). No: Normal Respiratory Effort Cardiovascular: Regular Rate, Regular Rhythm GI/Abdominal Exam: Normal Bowel Sounds, Soft, Non-Tender, No Organomegaly, No Distention, No Abnormal Bruit (Female) Exam: Other (indwelling avalos catheter) Back Exam: Other (deferred) Extremities: Normal Inspection, Non-Tender, No Pedal Edema, Normal Capillary Refill Peripheral Pulses: 2+: Dorsalis Pedis (L), Dorsalis Pedis (R) Skin: Warm, Dry, Intact Neurological: Other (deferred) Physical Findings Comments:: Physical examination is limited. She is currently sedated, intubated on mechanical ventilator. - Problem List Review Problem List Initiated/Reviewed/Updated: Yes - My Orders Last 24 Hours: My Active Orders 05/27/18 08:45 LORazepam [Ativan] 2 mg IVPUSH Q4H PRN Metoprolol Tartrate [Lopressor] 5 mg IVPUSH Q4H PRN Pharmacy to Dose - Magnesium R [Pharmacy to Dose - Magnesium Replacement] 0 dose .XX ASDIRECTED PRN Pharmacy to Dose - Potassium R [Pharmacy to Dose - Potassium Replacement] 0 dose .XX ASDIRECTED PRN hydrALAZINE [Apresoline] 20 mg IVPUSH Q4H PRN 05/27/18 08:48 Bedrest Bathroom Privileges [RC] ASDIRECTED Cardiac Monitoring [RC] CONTINUOUS Height and Weight [RC] 04 Intake and Output [RC] Q2HR Oxygen Therapy [RC] PRN Pulse Oximetry [RC] CONTINUOUS VTE/DVT Education [RC] 09, Vital Signs [RC] Q4HR Consult to Case Management/Orthotic Technician [CONS] Routine Respiratory Care Assess and Treatment [CONS] Routine Acetaminophen [Tylenol] 650 mg PO Q4H PRN Acetaminophen/HYDROcodone [[place] 325-5 MG] 1 tab PO Q4H PRN Albuterol/Ipratropium [DuoNeb 3.0-0.5 MG/3 ML] 3 ml NEB Q4H PRN Bisacodyl [Dulcolax] 5 mg PO DAILY PRN Docusate Sodium [Colace] 100 mg PO BID PRN Docusate Sodium/Sennosides [Senna Plus] 1 tab PO BID PRN HYDROmorphone [Dilaudid] 0.25 mg IVPUSH Q2H PRN LORazepam [Ativan] 1 mg IV Q6H PRN Ondansetron [Zofran] 4 mg IV Q6H PRN Promethazine [Phenergan] 6.25 mg Sodium Chloride 0.9% [Normal Saline] 50 ml IV Q6H Temazepam [Restoril] 7.5 mg PO BEDTIME PRN Resuscitation Status Routine 05/27/18 08:49 RT Aerosol Therapy [RC] ASDIRECTED 05/27/18 08:55 Accu Check [Blood Glucose Check, Bedside] [RC] Q30M 05/27/18 09:00 Enoxaparin [Lovenox] 40 mg SUBCUT DAILY 05/27/18 09:08 RASS Sedation Scale [RC] ASDIRECTED Desired Level of Sedation (RASS) [AST] Click To Edit 05/27/18 09:15 Propofol [Diprivan 100 ML] 100 ml IV TITRATE 05/27/18 11:00 Ampicillin/Sulbactam Na [Unasyn] 3 gm Sodium Chloride 0.9% [Normal Saline] 100 ml IV Q6H 05/27/18 13:03 Dextrose 50% in Water 50 ml IVPUSH ASDIRECTED PRN 05/27/18 14:00 EKG 12 Lead [EK] Stat 05/27/18 15:00 Pantoprazole [ProTONIX IV] 40 mg IVPUSH Q12H 05/27/18 Lunch Nothing per Oral Now Diet [DIET] 05/28/18 00:30 Dextrose 10% in Water 500 ml IV ASDIRECTED 05/28/18 08:08 ABG [BLOOD GAS ARTERIAL] [BG] Urgent 05/29/18 05:11 BASIC METABOLIC PANEL,BMP [CHEM] AM C-REACTIVE PROTEIN [CHEM] AM CBC WITH AUTO DIFF [HEME] AM MAGNESIUM [CHEM] AM 05/30/18 05:11 BASIC METABOLIC PANEL,BMP [CHEM] AM C-REACTIVE PROTEIN [CHEM] AM CBC WITH AUTO DIFF [HEME] AM MAGNESIUM [CHEM] AM 05/31/18 05:11 BASIC METABOLIC PANEL,BMP [CHEM] AM C-REACTIVE PROTEIN [CHEM] AM CBC WITH AUTO DIFF [HEME] AM MAGNESIUM [CHEM] AM 06/01/18 05:11 BASIC METABOLIC PANEL,BMP [CHEM] AM C-REACTIVE PROTEIN [CHEM] AM CBC WITH AUTO DIFF [HEME] AM MAGNESIUM [CHEM] AM 06/02/18 05:11 BASIC METABOLIC PANEL,BMP [CHEM] AM C-REACTIVE PROTEIN [CHEM] AM CBC WITH AUTO DIFF [HEME] AM MAGNESIUM [CHEM] AM - Plan Plan:: Assessment/Plan: Acute: AMS - 2/2 Toxic/Metabolic Encephalopathy - Head CT scan shows no acute intra-cranial abnormality - MELANI is 0.18 and Significant hypoglycemia - Currently on sedation due to mechanical ventilation Respiratory Failure w/ Possible Associated Aspiration - 2/2 AMS and Not able to Protect her Airway - ABG shows pH of 7.19, pCO2 of 58.7, pO2 of 81, HCO3 of 21.7, O2 Sat of 91.8 on Vent; her repeat ABG looks good plan for extubation after morning rounds today - Initial Vent Setting: AC 500/VT, 16/RR, 5/PEEP on 80% FiO2; now AC 500/12/5 /30% - IV Unasyn for Aspiration Syndrome coverage - Sedation vacation with plan for extubation Suicide Attempt via OD of Insulin - Carries a hx/o it in the past - Took for pens of [place] insulin - She has received dextrose en route and while in ED - She is currently on D5W for maintenance; will continue it - Accu-check Q1H and may change to [id number] as needed - 1:1 care once off vent - Tele-psych and SAC consult when appropriate Severe Hypoglycemia - Iatrogenic from significant amount of insulin she took - Hypoglycemia protocol plus on dextrose IV fluids - Continue routine accu-check Positive Troponin W/ Prolonged QT - Likely 2/2 Demand Ischemia - Malignant Hypertensive on presentation - CKMB is negative - Serial EKGs and will continue to monitor Resolved: S/p Malignant HTN - Carries a hx/o HTN - Documented BP of 203/132 and 148/102 mmHg - Now improved - Resume home BP meds along with PRN anti-hypertensive agents Chronic: Impaired Vision HTN Asthma GERD Hx/o Pancreatitis Fibroids OA/DJD Hx/o Suicide Attempt Depression DM1 and MANOJ Plan: She is comfortable Plan for extubation Continue D5W for glucose maintenance at 300 cc/hr Routine AM Labs Aspiration Precaution DVT/GI PPx: Lovenox SQ/PPI Continue routine Accu-check w/ hypoglycemia protocol Tele-psych and SAC consult when appropriate SW/CM for d/c planning Code status: 1 Expect she should be able to come off vent w/o any difficulties but may run into compliance. Patient is still young and carries no significant pulmonary disease or insufficiency.
[2018-05-28] MEDS ORDERED: Magnesium Sulfate/Water 4 GM in Premix Bag 1 BAG IV ONE (10:00)
[2018-05-28] MEDS: Enoxaparin 40 MG/0.4 ML Syringe SUBCUT SCH (10:46)
[2018-05-28] MEDS: Metoprolol Tartrate 5 MG/5 ML SDV IVPUSH PRN (12:30)
[2018-05-28] MEDS ORDERED: Racepinephrine 2.25% 0.5 ML Neb Soln NEB ONE (13:23)
[2018-05-28] MEDS ORDERED: Sodium Chloride 0.9% Inhalation Soln 3 ML Neb INH PRN (13:23)
[2018-05-28] MEDS ORDERED: Racepinephrine 2.25% 0.5 ML Neb Soln ONE (13:26)
[2018-05-28] MEDS ORDERED: Modafinil 200 MG Tab PO STA (13:28)
--- NOTE | 2018-05-28 13:32 | PCM.SN ---
- Free Text/Narrative Note: Patient was successfully extubated at 1320. Her was out in the yanez during the procedure. Ordered post extubation x-ray. She is currently on NC sating at 100% with a HR of 100.
--- NOTE | 2018-05-28 14:10 | CR ---
Chest: Portable view of the chest was obtained. Comparison: Prior chest x-ray of 05/27/18. Endotracheal tube has been removed in the interim from prior study. Nasogastric tube remains in place with tip lying within the body of the stomach. Lungs are clear. Heart size and mediastinum are within normal limits for portable technique. Impression: 1. Endotracheal tube has been removed in the interim from prior study. 2. Nasogastric tube remains in place. 3. Nothing acute is otherwise seen. Diagnostic code #2
[2018-05-28] MEDS: Saccharomyces Boulardii (Probiotic) 250 MG Cap PO SCH (20:58)
[2018-05-29] MEDS: LORazepam 2 MG/ML SDV IV PRN ×3 (00:02→23:08)
[2018-05-29] MEDS: Dextrose 10% in Water 500 ML IV SCH ×9 (00:12→13:26)
[2018-05-29] MEDS: Pantoprazole 40 MG Vial IVPUSH SCH ×2 (02:07→15:16)
[2018-05-29] MEDS ORDERED: Thiamine 200 MG/2 ML MDV IV ONE (07:45)
[2018-05-29] MEDS ORDERED: Thiamine 100 MG in Sodium Chloride 0.9% 100 ML IV ONE (08:00)
[2018-05-29] MEDS ORDERED: Modafinil 200 MG Tab PO SCH (08:00)
[2018-05-29] MEDS: Saccharomyces Boulardii (Probiotic) 250 MG Cap PO SCH ×2 (08:41→21:20)
[2018-05-29] MEDS: Enoxaparin 40 MG/0.4 ML Syringe SUBCUT SCH (08:41)
--- NOTE | 2018-05-29 08:49 | PCM.PN ---
- General Info Date of Service: 05/29/18 Admission Dx/Problem (Free Text): Admission Diagnosis/Problem Admission Diagnosis/Problem Intentional overdose of drug by injectable substance Subjective Update: Follow Up Functional Status: Reports: Pain Controlled, Urinating. Denies: New Symptoms - Review of Systems General: Denies: Fever, Chills HEENT: Reports: No Symptoms Pulmonary: Reports: No Symptoms Cardiovascular: Denies: Chest Pain, Dyspnea on Exertion, Lightheadedness Gastrointestinal: Denies: Abdominal Pain, Nausea, Vomiting Genitourinary: Reports: No Symptoms Musculoskeletal: Reports: No Symptoms Skin: Reports: No Symptoms Neurological: Reports: No Symptoms Systems Review Comment:: NO significant overnight issues. She is comfortable and resting right now. She is alert to voice but still non-sensible and inappropriate. She has received ativan to calm her down. - Patient Data Vitals - Most Recent: Last Vital Signs Temp 36.7 C 05/29/18 08:00 Pulse 83 05/29/18 08:00 Resp 20 05/29/18 08:00 BP 137/75 05/29/18 08:00 Pulse Ox 100 05/29/18 08:00 Weight - Most Recent: 86.908 kg I&O - Last 24 Hours: Intake & Output 05/28/18 05/29/18 05/29/18 22:59 06:59 14:59 Intake Total 2631 2481 Output Total 2070 1200 350 Balance 561 1281 -350 Lab Results Last 24 Hours: Laboratory Results - last 24 hr 05/28/18 05/28/18 05/28/18 Range/Units 08:29 09:11 09:37 WBC (3.98-10.04) K/mm3 RBC (3.98-5.22) M/mm3 Hgb (11.2-15.7) gm/L Hct (34.1-44.9) % MCV (79.4-94.8) fl MCH (25.6-32.2) pg MCHC (32.2-35.5) g/dl RDW Std Deviation (36.4-46.3) fL Plt Count (182-369) K/mm3 MPV (9.4-12.3) fl Neut % (Auto) (34.0-71.1) % Lymph % (Auto) (19.3-51.7) % [place] % (Auto) (4.7-12.5) % Eos % (Auto) (0.7-5.8) Baso % (Auto) (0.1-1.2) % Neut # (Auto) (1.56-6.13) K/mm3 Lymph # (Auto) (1.18-3.74) K/mm3 [place] # (Auto) (0.24-0.36) K/mm3 Eos # (Auto) (0.04-0.36) K/mm3 Baso # (Auto) (0.01-0.08) K/mm3 Manual Slide Review Sodium (136-145) mEq/L Potassium (3.5-5.1) mEq/L Chloride (98-107) mEq/L Carbon Dioxide (21-32) mEq/L Anion Gap (5-15) BUN (7-18) mg/dL Creatinine (0.55-1.02) mg/dL Est Cr Clr Drug Dosing mL/min Estimated GFR (MDRD) (>60) mL/min BUN/Creatinine Ratio (14-18) Glucose (74-106) mg/dL POC Glucose 87 101 94 (70-105) mg/dL Calcium (8.5-10.1) mg/dL Magnesium (1.8-2.4) mg/dl C-Reactive Protein (<1.0) mg/dL 05/28/18 05/28/18 05/28/18 Range/Units 10:48 11:21 11:54 WBC (3.98-10.04) K/mm3 RBC (3.98-5.22) M/mm3 Hgb (11.2-15.7) gm/L Hct (34.1-44.9) % MCV (79.4-94.8) fl MCH (25.6-32.2) pg MCHC (32.2-35.5) g/dl RDW Std Deviation (36.4-46.3) fL Plt Count (182-369) K/mm3 MPV (9.4-12.3) fl Neut % (Auto) (34.0-71.1) % Lymph % (Auto) (19.3-51.7) % [place] % (Auto) (4.7-12.5) % Eos % (Auto) (0.7-5.8) Baso % (Auto) (0.1-1.2) % Neut # (Auto) (1.56-6.13) K/mm3 Lymph # (Auto) (1.18-3.74) K/mm3 [place] # (Auto) (0.24-0.36) K/mm3 Eos # (Auto) (0.04-0.36) K/mm3 Baso # (Auto) (0.01-0.08) K/mm3 Manual Slide Review Sodium (136-145) mEq/L Potassium (3.5-5.1) mEq/L Chloride (98-107) mEq/L Carbon Dioxide (21-32) mEq/L Anion Gap (5-15) BUN (7-18) mg/dL Creatinine (0.55-1.02) mg/dL Est Cr Clr Drug Dosing mL/min Estimated GFR (MDRD) (>60) mL/min BUN/Creatinine Ratio (14-18) Glucose (74-106) mg/dL POC Glucose 95 89 99 (70-105) mg/dL Calcium (8.5-10.1) mg/dL Magnesium (1.8-2.4) mg/dl C-Reactive Protein (<1.0) mg/dL 05/28/18 05/28/18 05/28/18 Range/Units 13:02 14:20 15:28 WBC (3.98-10.04) K/mm3 RBC (3.98-5.22) M/mm3 Hgb (11.2-15.7) gm/L Hct (34.1-44.9) % MCV (79.4-94.8) fl MCH (25.6-32.2) pg MCHC (32.2-35.5) g/dl RDW Std Deviation (36.4-46.3) fL Plt Count (182-369) K/mm3 MPV (9.4-12.3) fl Neut % (Auto) (34.0-71.1) % Lymph % (Auto) (19.3-51.7) % [place] % (Auto) (4.7-12.5) % Eos % (Auto) (0.7-5.8) Baso % (Auto) (0.1-1.2) % Neut # (Auto) (1.56-6.13) K/mm3 Lymph # (Auto) (1.18-3.74) K/mm3 [place] # (Auto) (0.24-0.36) K/mm3 Eos # (Auto) (0.04-0.36) K/mm3 Baso # (Auto) (0.01-0.08) K/mm3 Manual Slide Review Sodium (136-145) mEq/L Potassium (3.5-5.1) mEq/L Chloride (98-107) mEq/L Carbon Dioxide (21-32) mEq/L Anion Gap (5-15) BUN (7-18) mg/dL Creatinine (0.55-1.02) mg/dL Est Cr Clr Drug Dosing mL/min Estimated GFR (MDRD) (>60) mL/min BUN/Creatinine Ratio (14-18) Glucose (74-106) mg/dL POC Glucose 108 H 105 79 (70-105) mg/dL Calcium (8.5-10.1) mg/dL Magnesium (1.8-2.4) mg/dl C-Reactive Protein (<1.0) mg/dL 05/28/18 05/28/18 05/28/18 Range/Units 16:48 18:11 19:59 WBC (3.98-10.04) K/mm3 RBC (3.98-5.22) M/mm3 Hgb (11.2-15.7) gm/L Hct (34.1-44.9) % MCV (79.4-94.8) fl MCH (25.6-32.2) pg MCHC (32.2-35.5) g/dl RDW Std Deviation (36.4-46.3) fL Plt Count (182-369) K/mm3 MPV (9.4-12.3) fl Neut % (Auto) (34.0-71.1) % Lymph % (Auto) (19.3-51.7) % [place] % (Auto) (4.7-12.5) % Eos % (Auto) (0.7-5.8) Baso % (Auto) (0.1-1.2) % Neut # (Auto) (1.56-6.13) K/mm3 Lymph # (Auto) (1.18-3.74) K/mm3 [place] # (Auto) (0.24-0.36) K/mm3 Eos # (Auto) (0.04-0.36) K/mm3 Baso # (Auto) (0.01-0.08) K/mm3 Manual Slide Review Sodium (136-145) mEq/L Potassium (3.5-5.1) mEq/L Chloride (98-107) mEq/L Carbon Dioxide (21-32) mEq/L Anion Gap (5-15) BUN (7-18) mg/dL Creatinine (0.55-1.02) mg/dL Est Cr Clr Drug Dosing mL/min Estimated GFR (MDRD) (>60) mL/min BUN/Creatinine Ratio (14-18) Glucose (74-106) mg/dL POC Glucose 121 H 76 84 (70-105) mg/dL Calcium (8.5-10.1) mg/dL Magnesium (1.8-2.4) mg/dl C-Reactive Protein (<1.0) mg/dL 05/28/18 05/28/18 05/28/18 Range/Units 21:13 21:49 23:04 WBC (3.98-10.04) K/mm3 RBC (3.98-5.22) M/mm3 Hgb (11.2-15.7) gm/L Hct (34.1-44.9) % MCV (79.4-94.8) fl MCH (25.6-32.2) pg MCHC (32.2-35.5) g/dl RDW Std Deviation (36.4-46.3) fL Plt Count (182-369) K/mm3 MPV (9.4-12.3) fl Neut % (Auto) (34.0-71.1) % Lymph % (Auto) (19.3-51.7) % [place] % (Auto) (4.7-12.5) % Eos % (Auto) (0.7-5.8) Baso % (Auto) (0.1-1.2) % Neut # (Auto) (1.56-6.13) K/mm3 Lymph # (Auto) (1.18-3.74) K/mm3 [place] # (Auto) (0.24-0.36) K/mm3 Eos # (Auto) (0.04-0.36) K/mm3 Baso # (Auto) (0.01-0.08) K/mm3 Manual Slide Review Sodium (136-145) mEq/L Potassium (3.5-5.1) mEq/L Chloride (98-107) mEq/L Carbon Dioxide (21-32) mEq/L Anion Gap (5-15) BUN (7-18) mg/dL Creatinine (0.55-1.02) mg/dL Est Cr Clr Drug Dosing mL/min Estimated GFR (MDRD) (>60) mL/min BUN/Creatinine Ratio (14-18) Glucose (74-106) mg/dL POC Glucose 67 L 99 67 L (70-105) mg/dL Calcium (8.5-10.1) mg/dL Magnesium (1.8-2.4) mg/dl C-Reactive Protein (<1.0) mg/dL 05/28/18 05/29/18 05/29/18 Range/Units 23:36 00:11 01:16 WBC (3.98-10.04) K/mm3 RBC (3.98-5.22) M/mm3 Hgb (11.2-15.7) gm/L Hct (34.1-44.9) % MCV (79.4-94.8) fl MCH (25.6-32.2) pg MCHC (32.2-35.5) g/dl RDW Std Deviation (36.4-46.3) fL Plt Count (182-369) K/mm3 MPV (9.4-12.3) fl Neut % (Auto) (34.0-71.1) % Lymph % (Auto) (19.3-51.7) % [place] % (Auto) (4.7-12.5) % Eos % (Auto) (0.7-5.8) Baso % (Auto) (0.1-1.2) % Neut # (Auto) (1.56-6.13) K/mm3 Lymph # (Auto) (1.18-3.74) K/mm3 [place] # (Auto) (0.24-0.36) K/mm3 Eos # (Auto) (0.04-0.36) K/mm3 Baso # (Auto) (0.01-0.08) K/mm3 Manual Slide Review Sodium (136-145) mEq/L Potassium (3.5-5.1) mEq/L Chloride (98-107) mEq/L Carbon Dioxide (21-32) mEq/L Anion Gap (5-15) BUN (7-18) mg/dL Creatinine (0.55-1.02) mg/dL Est Cr Clr Drug Dosing mL/min Estimated GFR (MDRD) (>60) mL/min BUN/Creatinine Ratio (14-18) Glucose (74-106) mg/dL POC Glucose 96 104 127 H (70-105) mg/dL Calcium (8.5-10.1) mg/dL Magnesium (1.8-2.4) mg/dl C-Reactive Protein (<1.0) mg/dL 05/29/18 05/29/18 05/29/18 Range/Units 02:11 03:19 04:08 WBC (3.98-10.04) K/mm3 RBC (3.98-5.22) M/mm3 Hgb (11.2-15.7) gm/L Hct (34.1-44.9) % MCV (79.4-94.8) fl MCH (25.6-32.2) pg MCHC (32.2-35.5) g/dl RDW Std Deviation (36.4-46.3) fL Plt Count (182-369) K/mm3 MPV (9.4-12.3) fl Neut % (Auto) (34.0-71.1) % Lymph % (Auto) (19.3-51.7) % [place] % (Auto) (4.7-12.5) % Eos % (Auto) (0.7-5.8) Baso % (Auto) (0.1-1.2) % Neut # (Auto) (1.56-6.13) K/mm3 Lymph # (Auto) (1.18-3.74) K/mm3 [place] # (Auto) (0.24-0.36) K/mm3 Eos # (Auto) (0.04-0.36) K/mm3 Baso # (Auto) (0.01-0.08) K/mm3 Manual Slide Review Sodium (136-145) mEq/L Potassium (3.5-5.1) mEq/L Chloride (98-107) mEq/L Carbon Dioxide (21-32) mEq/L Anion Gap (5-15) BUN (7-18) mg/dL Creatinine (0.55-1.02) mg/dL Est Cr Clr Drug Dosing mL/min Estimated GFR (MDRD) (>60) mL/min BUN/Creatinine Ratio (14-18) Glucose (74-106) mg/dL POC Glucose 125 H 141 H 131 H (70-105) mg/dL Calcium (8.5-10.1) mg/dL Magnesium (1.8-2.4) mg/dl C-Reactive Protein (<1.0) mg/dL 05/29/18 05/29/18 05/29/18 Range/Units 04:40 04:40 05:30 WBC 4.93 (3.98-10.04) K/mm3 RBC 2.90 L (3.98-5.22) M/mm3 Hgb 10.4 L (11.2-15.7) gm/L Hct 30.3 L (34.1-44.9) % MCV 104.5 H (79.4-94.8) fl MCH 35.9 H (25.6-32.2) pg MCHC 34.3 (32.2-35.5) g/dl RDW Std Deviation 43.9 (36.4-46.3) fL Plt Count 93 L (182-369) K/mm3 MPV 10.3 (9.4-12.3) fl Neut % (Auto) 67.5 (34.0-71.1) % Lymph % (Auto) 17.0 L (19.3-51.7) % [place] % (Auto) 10.8 (4.7-12.5) % Eos % (Auto) 4.3 (0.7-5.8) Baso % (Auto) 0.2 (0.1-1.2) % Neut # (Auto) 3.33 (1.56-6.13) K/mm3 Lymph # (Auto) 0.84 L (1.18-3.74) K/mm3 [place] # (Auto) 0.53 H (0.24-0.36) K/mm3 Eos # (Auto) 0.21 (0.04-0.36) K/mm3 Baso # (Auto) 0.01 (0.01-0.08) K/mm3 Manual Slide Review Abnormal smear Sodium 138 (136-145) mEq/L Potassium 3.1 L (3.5-5.1) mEq/L Chloride 105 (98-107) mEq/L Carbon Dioxide 22 (21-32) mEq/L Anion Gap 14.1 (5-15) BUN 5 L (7-18) mg/dL Creatinine 1.0 (0.55-1.02) mg/dL Est Cr Clr Drug Dosing 69.55 mL/min Estimated GFR (MDRD) 58 (>60) mL/min BUN/Creatinine Ratio 5.0 L (14-18) Glucose 134 H (74-106) mg/dL POC Glucose 148 H (70-105) mg/dL Calcium 7.5 L (8.5-10.1) mg/dL Magnesium 1.5 L (1.8-2.4) mg/dl C-Reactive Protein 1.6 H* (<1.0) mg/dL 05/29/18 05/29/18 05/29/18 Range/Units 06:07 06:48 08:09 WBC (3.98-10.04) K/mm3 RBC (3.98-5.22) M/mm3 Hgb (11.2-15.7) gm/L Hct (34.1-44.9) % MCV (79.4-94.8) fl MCH (25.6-32.2) pg MCHC (32.2-35.5) g/dl RDW Std Deviation (36.4-46.3) fL Plt Count (182-369) K/mm3 MPV (9.4-12.3) fl Neut % (Auto) (34.0-71.1) % Lymph % (Auto) (19.3-51.7) % [place] % (Auto) (4.7-12.5) % Eos % (Auto) (0.7-5.8) Baso % (Auto) (0.1-1.2) % Neut # (Auto) (1.56-6.13) K/mm3 Lymph # (Auto) (1.18-3.74) K/mm3 [place] # (Auto) (0.24-0.36) K/mm3 Eos # (Auto) (0.04-0.36) K/mm3 Baso # (Auto) (0.01-0.08) K/mm3 Manual Slide Review Sodium (136-145) mEq/L Potassium (3.5-5.1) mEq/L Chloride (98-107) mEq/L Carbon Dioxide (21-32) mEq/L Anion Gap (5-15) BUN (7-18) mg/dL Creatinine (0.55-1.02) mg/dL Est Cr Clr Drug Dosing mL/min Estimated GFR (MDRD) (>60) mL/min BUN/Creatinine Ratio (14-18) Glucose (74-106) mg/dL POC Glucose 146 H 169 H 164 H (70-105) mg/dL Calcium (8.5-10.1) mg/dL Magnesium (1.8-2.4) mg/dl C-Reactive Protein (<1.0) mg/dL Med Orders - Current: Current Medications Acetaminophen (Tylenol) 650 mg PO Q4H PRN PRN Reason: Pain (Mild 1-3)/fever Hydrocodone Bitart/Acetaminophen ([place] 325-5 Mg) 1 tab PO Q4H PRN PRN Reason: Pain (moderate 4-6) Albuterol/Ipratropium (Duoneb 3.0-0.5 Mg/3 Ml) 3 ml NEB Q4H PRN PRN Reason: Shortness Of Breath/wheezing Bisacodyl (Dulcolax) 5 mg PO DAILY PRN PRN Reason: Constipation Dextrose/Water (Dextrose 50% In Water) 50 ml IVPUSH ASDIRECTED PRN PRN Reason: Hypoglycemia Last Admin: 05/28/18 23:08 Dose: 25 ml Docusate Sodium (Colace) 100 mg PO BID PRN PRN Reason: Constipation Enoxaparin Sodium (Lovenox) 40 mg SUBCUT DAILY MAGO Last Admin: 05/29/18 08:41 Dose: 40 mg Hydralazine HCl (Apresoline) 20 mg IVPUSH Q4H PRN PRN Reason: Hypertension Hydromorphone HCl (Dilaudid) 0.25 mg IVPUSH Q2H PRN PRN Reason: Pain (severe 7-10) Promethazine HCl 6.25 mg/ (Sodium Chloride) 50.25 mls @ 100 mls/hr IV Q6H PRN PRN Reason: Nausea/Vomiting Propofol (Diprivan 100 Ml) 100 mls @ 0.9 mls/hr IV TITRATE MAGO; Protocol Last Titration: 05/28/18 13:15 Dose: 0 mcg/kg/min, 0 mls/hr Dextrose/Water (Dextrose 10% In Water) 500 mls @ 300 mls/hr IV ASDIRECTED MAGO Last Admin: 05/29/18 08:25 Dose: 300 mls/hr Lorazepam (Ativan) 2 mg IVPUSH Q4H PRN PRN Reason: Seizures Lorazepam (Ativan) 1 mg IV Q6H PRN PRN Reason: Anxiety Last Admin: 05/29/18 00:02 Dose: 1 mg Magnesium Sulfate (Pharmacy To Dose - Magnesium Replacement) 0 dose .XX ASDIRECTED PRN PRN Reason: RX TO WATCH MAG Metoprolol Tartrate (Lopressor) 5 mg IVPUSH Q4H PRN PRN Reason: Tachycardia Last Admin: 05/28/18 12:30 Dose: 5 mg Ondansetron HCl (Zofran) 4 mg IV Q6H PRN PRN Reason: Nausea/Vomiting Pantoprazole Sodium (Protonix Iv) 40 mg IVPUSH Q12H [facility] Last Admin: 05/29/18 02:07 Dose: 40 mg Potassium Chloride (Pharmacy To Dose - Potassium Replacement) 0 dose .XX ASDIRECTED PRN PRN Reason: RX TO WATCH K Saccharomyces Boulardii (Florastor) 250 mg PO BID [facility] Stop: 05/30/18 09:01 Last Admin: 05/29/18 08:41 Dose: Not Given Senna/Docusate Sodium (Senna Plus) 1 tab PO BID PRN PRN Reason: Constipation Sodium Chloride (Sodium Chloride 0.9%) 3 ml INH ASDIRECTED PRN PRN Reason: mix with racepinephrine neb Temazepam (Restoril) 7.5 mg PO BEDTIME PRN PRN Reason: Sleep Discontinued Medications Clonidine HCl (Catapres-Tts 3) 0.3 mg TRDERM Q7D ONE Stop: 05/27/18 09:01 Last Admin: 05/27/18 09:59 Dose: Not Given Dextrose/Water (Dextrose 50% In Water) Confirm Administered Dose 50 ml .ROUTE .[facility] ONE Stop: 05/27/18 06:23 Last Admin: 05/27/18 14:53 Dose: Not Given Dextrose/Water (Dextrose 50% In Water) Confirm Administered Dose 50 ml .ROUTE .[facility] ONE Stop: 05/27/18 13:07 Last Admin: 05/27/18 13:12 Dose: Not Given Dextrose/Water (Dextrose 50% In Water) 50 ml IVPUSH ASDIRECTED PRN PRN Reason: Hypoglycemia Dextrose/Sodium Chloride (Dextrose 5%-Normal Saline) Confirm Administered Dose 1 ,000 mls @ as directed .ROUTE .[facility] ONE Stop: 05/27/18 05:55 Last Admin: 05/27/18 14:53 Dose: Not Given Propofol (Diprivan 100 Ml) Confirm Administered Dose 100 mls @ as directed .ROUTE .[facility] ONE Stop: 05/27/18 06:16 Last Admin: 05/27/18 14:53 Dose: Not Given Dextrose/Sodium Chloride (Dextrose 5%-Normal Saline) Confirm Administered Dose 1 ,000 mls @ as directed .ROUTE .[facility] ONE Stop: 05/27/18 07:00 Last Admin: 05/27/18 14:53 Dose: Not Given Propofol (Diprivan 100 Ml) Confirm Administered Dose 100 mls @ as directed .ROUTE .[facility] ONE Stop: 05/27/18 08:21 Last Admin: 05/27/18 10:33 Dose: Not Given Ampicillin Sodium/Sulbactam (Sodium 3 gm/ Sodium Chloride) 100 mls @ 200 mls/ hr IV Q6H [facility] Last Admin: 05/28/18 18:58 Dose: 200 mls/hr Ceftriaxone Sodium 1 gm/ (Sodium Chloride) 100 mls @ 200 mls/hr IV Q24H [facility] Last Admin: 05/27/18 14:54 Dose: Not Given Magnesium Sulfate 2 gm/ Premix 50 mls @ 25 mls/hr IV ONETIME ONE Stop: 05/27/18 11:14 Last Admin: 05/27/18 10:30 Dose: 25 mls/hr Dextrose/Sodium Chloride (Dextrose 5%-Normal Saline) 1,000 mls @ 125 mls/hr IV ASDIRECTED [facility] Last Infusion: 05/27/18 14:55 Dose: 200 mls/hr Dextrose/Sodium Chloride (Dextrose 5%-Normal Saline) Confirm Administered Dose 1 ,000 mls @ as directed .ROUTE .[facility] ONE Stop: 05/27/18 12:33 Last Admin: 05/27/18 13:05 Dose: Not Given Dextrose/Sodium Chloride (Dextrose 5%-Normal Saline) 1,000 mls @ 150 mls/hr IV ASDIRECTED MAGO Dextrose/Sodium Chloride (Dextrose 5%-Normal Saline) 1,000 mls @ 200 mls/hr IV ASDIRECTED MAGO Dextrose/Water (Dextrose 10% In Water) 500 mls @ 150 mls/hr IV ASDIRECTED MAGO Last Infusion: 05/27/18 19:10 Dose: 200 mls/hr Dextrose/Water (Dextrose 10% In Water) 1,000 mls @ 300 mls/hr IV ASDIRECTED MAGO Last Admin: 05/28/18 00:03 Dose: 300 mls/hr Potassium Chloride (Kcl 10 Meq In Water 100 Ml) 100 mls @ 100 mls/hr IV Q1H MAGO Stop: 05/28/18 03:59 Last Admin: 05/28/18 04:03 Dose: 100 mls/hr Magnesium Sulfate (Magnesium Sulfate 2 Gm In Water 50 Ml) 50 mls @ 25 mls/hr IV ONETIME ONE Stop: 05/28/18 00:14 Last Admin: 05/27/18 23:16 Dose: 25 mls/hr Magnesium Sulfate 4 gm/ Premix 100 mls @ 25 mls/hr IV ONETIME ONE Stop: 05/28/18 13:59 Last Admin: 05/28/18 10:54 Dose: 25 mls/hr Midazolam HCl (Versed 5 Mg/Ml) 50 mg .ROUTE .[facility] ONE Stop: 05/27/18 05:51 Midazolam HCl (Versed 1 Mg/Ml) 10 mg .ROUTE .[facility] ONE Stop: 05/27/18 05:51 Modafinil (Provigil) 200 mg PO NOW STA Stop: 05/28/18 13:29 Last Admin: 05/28/18 13:44 Dose: 200 mg Modafinil (Provigil) 200 mg PO DAILY MAGO Stop: 05/29/18 08:01 Last Admin: 05/29/18 08:40 Dose: Not Given Racepinephrine (S-2 2.25%) 0.5 ml NEB ONETIME ONE Stop: 05/28/18 13:24 Last Admin: 05/28/18 13:33 Dose: 0.5 ml Racepinephrine (S-2 2.25%) Confirm Administered Dose 0.5 ml .ROUTE .[facility] ONE Stop: 05/28/18 13:27 Last Admin: 05/28/18 13:33 Dose: Not Given Succinylcholine Chloride (Quelicin) 200 mg .ROUTE .[facility] ONE Stop: 05/27/18 05:51 Thiamine HCl (Vitamin B-1) 100 mg IV ONETIME ONE Stop: 05/29/18 07:46 Last Admin: 05/29/18 08:38 Dose: 100 mg Vecuronium [place] (Vecuronium) 10 mg .ROUTE .[facility] ONE Stop: 05/27/18 05:51 - Exam General: Sedated HEENT: Pupils Equal, Pupils Reactive Neck: Supple Lungs: Clear to Auscultation, Normal Respiratory Effort Cardiovascular: Regular Rate, Regular Rhythm GI/Abdominal Exam: Normal Bowel Sounds, Soft, Non-Tender, No Distention, No Abnormal Bruit (Female) Exam: Other (indwelling avalos catheter) Back Exam: Other (deferred) Extremities: Non-Tender, No Pedal Edema, Normal Capillary Refill Peripheral Pulses: 2+: Dorsalis Pedis (L), Dorsalis Pedis (R) Skin: Warm, Dry, Intact Neurological: Other (deferred) Psy/Mental Status: Other (not appropriate) Physical Findings Comments:: Physical exam is limited due to sedation from benzo - Problem List Review Problem List Initiated/Reviewed/Updated: Yes - My Orders Last 24 Hours: My Active Orders 05/28/18 13:20 Extubation [RT Extubation] [RC] PER UNIT ROUTINE 05/28/18 13:23 Sodium Chloride 0.9% 3 ml INH ASDIRECTED PRN 05/28/18 19:25 One To One Therapy [BH] Urgent 05/28/18 19:53 One To One Therapy [BH] Routine 05/28/18 21:00 Saccharomyces Boulardii [Florastor] 250 mg PO BID 05/30/18 05:11 BASIC METABOLIC PANEL,BMP [CHEM] AM C-REACTIVE PROTEIN [CHEM] AM CBC WITH AUTO DIFF [HEME] AM MAGNESIUM [CHEM] AM 05/31/18 05:11 BASIC METABOLIC PANEL,BMP [CHEM] AM C-REACTIVE PROTEIN [CHEM] AM CBC WITH AUTO DIFF [HEME] AM MAGNESIUM [CHEM] AM 06/01/18 05:11 BASIC METABOLIC PANEL,BMP [CHEM] AM C-REACTIVE PROTEIN [CHEM] AM CBC WITH AUTO DIFF [HEME] AM MAGNESIUM [CHEM] AM 06/02/18 05:11 BASIC METABOLIC PANEL,BMP [CHEM] AM C-REACTIVE PROTEIN [CHEM] AM CBC WITH AUTO DIFF [HEME] AM MAGNESIUM [CHEM] AM - Plan Plan:: Assessment/Plan: Acute: Probable Anoxic Brain Injury - She was out for unknown duration; deprived of glucose and +/- O2 plus she was also intoxicated - Severity unclear at this point; only time will tell - EEG plus MRI - She need stroke rehab for discharge care plan AMS - 2/2 Suspect Hypoxic Brain Injury - Unclear how long she was out - She was severely hypoglycemic plus intoxicated with MELANI level of 0.18 - Head CT scan shows no acute intra-cranial abnormality - She is now off mechanical ventilation - Plan for EEG and MRI Suicide Attempt via OD of Insulin - Carries a hx/o it in the past - Took for pens of [place] insulin - She has received dextrose en route and while in ED - She is currently on D5W for maintenance; will continue it - Accu-check Q1H and may change to [id number] as needed - 1:1 care once off vent - Tele-psych and SAC consult when appropriate Permissive Hyperglycemia - BS now near 200s to upper 200s - She is unable to take food orally due to AMS - Continue Dextrose but will titrate rate as needed Resolved: S/p Respiratory Failure w/ Possible Associated Aspiration - 2/2 AMS and Not able to Protect her Airway - ABG shows pH of 7.19, pCO2 of 58.7, pO2 of 81, HCO3 of 21.7, O2 Sat of 91.8 on Vent; her repeat ABG looks good plan for extubation after morning rounds today - Initial Vent Setting: AC 500/VT, 16/RR, 5/PEEP on 80% FiO2; now AC 500/12/5 /30% - IV Unasyn for Aspiration Syndrome coverage - Sedation vacation with plan for extubation S/p Severe Hypoglycemia - Iatrogenic from significant amount of insulin she took - Hypoglycemia protocol plus on dextrose IV fluids - Continue routine accu-check PS/p ositive Troponin W/ Prolonged QT - Likely 2/2 Demand Ischemia - Malignant Hypertensive on presentation - CKMB is negative - Serial EKGs and will continue to monitor S/p Malignant HTN - Carries a hx/o HTN - Documented BP of 203/132 and 148/102 mmHg - Now improved - Resume home BP meds along with PRN anti-hypertensive agents Chronic: Impaired Vision HTN Asthma GERD Hx/o Pancreatitis Fibroids OA/DJD Hx/o Suicide Attempt Depression DM1 and MANOJ Plan: She is comfortable and hemodynamically stable right now Continue D5W for glucose maintenance at 300 cc/hr; may need to cut down to 250 based on future BS levels Routine AM Labs Aspiration Precaution Accu-check may change to Q4 or Q6 pending future subsequent glucose levels DVT/GI PPx: Lovenox SQ/PPI Continue routine Accu-check w/ hypoglycemia protocol Tele-psych and SAC consult discontinue; SW/CM for d/c planning for possible stroke rehab placement Code status: 1 LOS anticipate > 96 hrs due to slow response to treatment Patient remains non-sensible and inappropriate. When awake, she is all over and moves all extremities but she it "not there", as witnessed last night. Her was informed about possible brain injury as an expected outcome after extubation. However we will continue treat her medically. If she is not able to regain lucency by the next couple of days, we will discussed stroke rehab or SNF with . Her prognosis is guarded at this point.
[2018-05-29] MEDS ORDERED: Potassium Chloride 10 MEQ in Premix Bag 1 BAG IV SCH (09:15)
[2018-05-29] MEDS ORDERED: Magnesium Sulfate/Water 4 GM in Premix Bag 1 BAG IV ONE ×2 (09:15→12:00)
--- NOTE | 2018-05-29 10:47 | PCM.SN ---
- Free Text/Narrative Note: 05/29/18 [id number] IV started 22 guage right wrist area. Flushes well and secured. IV started 20 guage left hand area times 1 attempt. Flushes well and secured. Isaias WINSLOW
[2018-05-29] MEDS: Potassium Chloride 10 MEQ in Premix Bag 1 BAG IV SCH ×4 (11:00→14:50)
[2018-05-29] MEDS: hydrALAZINE 20 MG/ML SDV IVPUSH PRN ×2 (11:38→17:58)
[2018-05-29] MEDS ORDERED: Haloperidol Lactate 5 MG/ML SDV ONE (14:00)
[2018-05-29] MEDS ORDERED: Haloperidol Lactate 5 MG/ML SDV IVPUSH ONE ×2 (14:00→14:20)
[2018-05-29] MEDS ORDERED: LORazepam 2 MG/ML SDV IVPUSH ONE (14:10)
[2018-05-29] MEDS ORDERED: Dextrose 10% in Water 1,000 ML IV SCH (16:00)
--- NOTE | 2018-05-29 17:08 | PCM.SN ---
- Free Text/Narrative Note: Patient unable to comply with EEG so we try tomorrow per RT. We also attempted Brain MRI but very uncooperative in the imaging room despite having given ativan and haldol. We will reconsider those in the morning.
[2018-05-29] MEDS ORDERED: chlordiazePOXIDE 25 MG Cap PO PRN (18:17)
[2018-05-29] MEDS ORDERED: cloNIDine 0.1 MG Tab PO PRN (18:17)
[2018-05-29] MEDS: LORazepam 2 MG/ML SDV IV SCH (18:25)
[2018-05-30] MEDS: Pantoprazole 40 MG Vial IVPUSH SCH ×2 (03:16→15:37)
[2018-05-30] MEDS ORDERED: Magnesium Sulfate/Water 4 GM in Premix Bag 1 BAG IV ONE (08:00)
[2018-05-30] MEDS ORDERED: Dextrose 10% in Water 1,000 ML IV SCH ×2 (08:00→18:30)
[2018-05-30] MEDS ORDERED: diazePAM 5 MG/ML-2ml Syringe IV ONE (08:03)
[2018-05-30] MEDS ORDERED: Thiamine 100 MG in Sodium Chloride 0.9% 50 ML IV SCH (09:00)
[2018-05-30] MEDS: LORazepam 2 MG/ML SDV IV PRN (09:00)
--- NOTE | 2018-05-30 09:23 | PCM.PN ---
- General Info Date of Service: 05/30/18 Admission Dx/Problem (Free Text): Admission Diagnosis/Problem Admission Diagnosis/Problem Intentional overdose of drug by injectable substance Subjective Update: Follow Up Functional Status: Reports: Pain Controlled, Urinating. Denies: New Symptoms - Review of Systems General: Denies: Fever, Chills HEENT: Reports: No Symptoms Pulmonary: Denies: Shortness of Breath, Cough, Sputum, Wheezing Cardiovascular: Denies: Chest Pain, Dyspnea on Exertion Gastrointestinal: Denies: Abdominal Pain, Nausea, Vomiting Genitourinary: Reports: No Symptoms Musculoskeletal: Reports: No Symptoms Skin: Denies: Cyanosis, Pallor, Diaphoresis, Bruising Neurological: Reports: Confusion Systems Review Comment:: Patient is awake and alert but non-sensible. She groans and growls and at times thrash and flails. Her eyes are open and reactive to light and accommodation however she does not tract to voices. She also does not respond to verbal calls or simple commands calls by her at bedside. She stares and yawns and moves her extremities in bed. Her glucose however is fairly controlled at this point. - Patient Data Vitals - Most Recent: Last Vital Signs Temp 36.9 C 05/30/18 04:00 Pulse 114 H 05/30/18 04:00 Resp 21 H 05/30/18 04:00 BP 150/70 H 05/30/18 04:00 Pulse Ox 98 05/30/18 07:55 Weight - Most Recent: 86.183 kg I&O - Last 24 Hours: Intake & Output 05/29/18 05/30/18 05/30/18 22:59 06:59 14:59 Intake Total 4852 2596 Output Total 2435 1050 Balance 2417 1546 Lab Results Last 24 Hours: Laboratory Results - last 24 hr 05/29/18 05/29/18 05/29/18 Range/Units 11:20 15:44 18:04 WBC (3.98-10.04) K/mm3 RBC (3.98-5.22) M/mm3 Hgb (11.2-15.7) gm/L Hct (34.1-44.9) % MCV (79.4-94.8) fl MCH (25.6-32.2) pg MCHC (32.2-35.5) g/dl RDW Std Deviation (36.4-46.3) fL Plt Count (182-369) K/mm3 MPV (9.4-12.3) fl Neut % (Auto) (34.0-71.1) % Lymph % (Auto) (19.3-51.7) % Kay % (Auto) (4.7-12.5) % Eos % (Auto) (0.7-5.8) Baso % (Auto) (0.1-1.2) % Neut # (Auto) (1.56-6.13) K/mm3 Lymph # (Auto) (1.18-3.74) K/mm3 Kay # (Auto) (0.24-0.36) K/mm3 Eos # (Auto) (0.04-0.36) K/mm3 Baso # (Auto) (0.01-0.08) K/mm3 Sodium (136-145) mEq/L Potassium (3.5-5.1) mEq/L Chloride (98-107) mEq/L Carbon Dioxide (21-32) mEq/L Anion Gap (5-15) BUN (7-18) mg/dL Creatinine (0.55-1.02) mg/dL Est Cr Clr Drug Dosing mL/min Estimated GFR (MDRD) (>60) mL/min BUN/Creatinine Ratio (14-18) Glucose (74-106) mg/dL POC Glucose 196 H 229 H 255 H (70-105) mg/dL Calcium (8.5-10.1) mg/dL Magnesium (1.8-2.4) mg/dl C-Reactive Protein (<1.0) mg/dL 05/29/18 05/30/18 05/30/18 Range/Units 22:21 00:05 05:20 WBC 3.69 L (3.98-10.04) K/mm3 RBC 3.05 L (3.98-5.22) M/mm3 Hgb 10.8 L (11.2-15.7) gm/L Hct 31.4 L (34.1-44.9) % MCV 103.0 H (79.4-94.8) fl MCH 35.4 H (25.6-32.2) pg MCHC 34.4 (32.2-35.5) g/dl RDW Std Deviation 43.2 (36.4-46.3) fL Plt Count 107 L (182-369) K/mm3 MPV 10.6 (9.4-12.3) fl Neut % (Auto) 55.8 (34.0-71.1) % Lymph % (Auto) 30.4 (19.3-51.7) % Kay % (Auto) 8.9 (4.7-12.5) % Eos % (Auto) 4.3 (0.7-5.8) Baso % (Auto) 0.3 (0.1-1.2) % Neut # (Auto) 2.06 (1.56-6.13) K/mm3 Lymph # (Auto) 1.12 L (1.18-3.74) K/mm3 Kay # (Auto) 0.33 (0.24-0.36) K/mm3 Eos # (Auto) 0.16 (0.04-0.36) K/mm3 Baso # (Auto) 0.01 (0.01-0.08) K/mm3 Sodium (136-145) mEq/L Potassium (3.5-5.1) mEq/L Chloride (98-107) mEq/L Carbon Dioxide (21-32) mEq/L Anion Gap (5-15) BUN (7-18) mg/dL Creatinine (0.55-1.02) mg/dL Est Cr Clr Drug Dosing mL/min Estimated GFR (MDRD) (>60) mL/min BUN/Creatinine Ratio (14-18) Glucose (74-106) mg/dL POC Glucose 293 H 229 H (70-105) mg/dL Calcium (8.5-10.1) mg/dL Magnesium (1.8-2.4) mg/dl C-Reactive Protein (<1.0) mg/dL 05/30/18 05/30/18 Range/Units 05:20 06:35 WBC (3.98-10.04) K/mm3 RBC (3.98-5.22) M/mm3 Hgb (11.2-15.7) gm/L Hct (34.1-44.9) % MCV (79.4-94.8) fl MCH (25.6-32.2) pg MCHC (32.2-35.5) g/dl RDW Std Deviation (36.4-46.3) fL Plt Count (182-369) K/mm3 MPV (9.4-12.3) fl Neut % (Auto) (34.0-71.1) % Lymph % (Auto) (19.3-51.7) % Kay % (Auto) (4.7-12.5) % Eos % (Auto) (0.7-5.8) Baso % (Auto) (0.1-1.2) % Neut # (Auto) (1.56-6.13) K/mm3 Lymph # (Auto) (1.18-3.74) K/mm3 Kay # (Auto) (0.24-0.36) K/mm3 Eos # (Auto) (0.04-0.36) K/mm3 Baso # (Auto) (0.01-0.08) K/mm3 Sodium 133 L (136-145) mEq/L Potassium 3.9 (3.5-5.1) mEq/L Chloride 103 (98-107) mEq/L Carbon Dioxide 23 (21-32) mEq/L Anion Gap 10.9 (5-15) BUN 3 L (7-18) mg/dL Creatinine 0.9 (0.55-1.02) mg/dL Est Cr Clr Drug Dosing 77.27 mL/min Estimated GFR (MDRD) > 60 (>60) mL/min BUN/Creatinine Ratio 3.3 L (14-18) Glucose 165 H (74-106) mg/dL POC Glucose 177 H (70-105) mg/dL Calcium 7.9 L (8.5-10.1) mg/dL Magnesium 1.6 L (1.8-2.4) mg/dl C-Reactive Protein 0.6 (<1.0) mg/dL Med Orders - Current: Current Medications Acetaminophen (Tylenol) 650 mg PO Q4H PRN PRN Reason: Pain (Mild 1-3)/fever Hydrocodone Bitart/Acetaminophen ([place] 325-5 Mg) 1 tab PO Q4H PRN PRN Reason: Pain (moderate 4-6) Albuterol/Ipratropium (Duoneb 3.0-0.5 Mg/3 Ml) 3 ml NEB Q4H PRN PRN Reason: Shortness Of Breath/wheezing Bisacodyl (Dulcolax) 5 mg PO DAILY PRN PRN Reason: Constipation Chlordiazepoxide HCl (Librium) 25 mg PO Q8H PRN PRN Reason: Withdrawal Symptoms Clonidine HCl (Catapres) 0.1 mg PO Q4H PRN PRN Reason: Agitation Dextrose/Water (Dextrose 50% In Water) 50 ml IVPUSH ASDIRECTED PRN PRN Reason: Hypoglycemia Last Admin: 05/28/18 23:08 Dose: 25 ml Docusate Sodium (Colace) 100 mg PO BID PRN PRN Reason: Constipation Enoxaparin Sodium (Lovenox) 40 mg SUBCUT DAILY MAGO Last Admin: 05/29/18 08:41 Dose: 40 mg Hydralazine HCl (Apresoline) 20 mg IVPUSH Q4H PRN PRN Reason: Hypertension Last Admin: 05/29/18 17:58 Dose: 20 mg Hydromorphone HCl (Dilaudid) 0.25 mg IVPUSH Q2H PRN PRN Reason: Pain (severe 7-10) Promethazine HCl 6.25 mg/ (Sodium Chloride) 50.25 mls @ 100 mls/hr IV Q6H PRN PRN Reason: Nausea/Vomiting Propofol (Diprivan 100 Ml) 100 mls @ 0.9 mls/hr IV TITRATE MAGO; Protocol Last Titration: 05/28/18 13:15 Dose: 0 mcg/kg/min, 0 mls/hr Dextrose/Water (Dextrose 10% In Water) 1,000 mls @ 150 mls/hr IV ASDIRECTED [facility] Magnesium Sulfate 4 gm/ Premix 100 mls @ 25 mls/hr IV ONETIME ONE Stop: 05/30/18 11:59 Lorazepam (Ativan) 2 mg IVPUSH Q4H PRN PRN Reason: Seizures Lorazepam (Ativan) 0 mg IV Q4H PRN; Protocol PRN Reason: Withdrawal Symptoms Last Admin: 05/29/18 23:08 Dose: 1 mg Lorazepam (Ativan) 0 mg IV ASDIRECTED MAGO; Protocol Last Admin: 05/29/18 18:25 Dose: 2 mg Magnesium Sulfate (Pharmacy To Dose - Magnesium Replacement) 0 dose .XX ASDIRECTED PRN PRN Reason: RX TO WATCH MAG Metoprolol Tartrate (Lopressor) 5 mg IVPUSH Q4H PRN PRN Reason: Tachycardia Last Admin: 05/28/18 12:30 Dose: 5 mg Ondansetron HCl (Zofran) 4 mg IV Q6H PRN PRN Reason: Nausea/Vomiting Pantoprazole Sodium (Protonix Iv) 40 mg IVPUSH Q12H MAGO Last Admin: 05/30/18 03:16 Dose: 40 mg Potassium Chloride (Pharmacy To Dose - Potassium Replacement) 0 dose .XX ASDIRECTED PRN PRN Reason: RX TO WATCH K Senna/Docusate Sodium (Senna Plus) 1 tab PO BID PRN PRN Reason: Constipation Sodium Chloride (Sodium Chloride 0.9%) 3 ml INH ASDIRECTED PRN PRN Reason: mix with racepinephrine neb Temazepam (Restoril) 7.5 mg PO BEDTIME PRN PRN Reason: Sleep Thiamine HCl (Vitamin B-1) 100 mg IVPUSH DAILY [facility] Stop: 05/31/18 09:01 Discontinued Medications Clonidine HCl (Catapres-Tts 3) 0.3 mg TRDERM Q7D ONE Stop: 05/27/18 09:01 Last Admin: 05/27/18 09:59 Dose: Not Given Dextrose/Water (Dextrose 50% In Water) Confirm Administered Dose 50 ml .ROUTE .STK-MED ONE Stop: 05/27/18 06:23 Last Admin: 05/27/18 14:53 Dose: Not Given Dextrose/Water (Dextrose 50% In Water) Confirm Administered Dose 50 ml .ROUTE .STK-MED ONE Stop: 05/27/18 13:07 Last Admin: 05/27/18 13:12 Dose: Not Given Dextrose/Water (Dextrose 50% In Water) 50 ml IVPUSH ASDIRECTED PRN PRN Reason: Hypoglycemia Diazepam (Valium) 3 mg IV ONETIME ONE Stop: 05/30/18 08:04 Last Admin: 05/30/18 08:16 Dose: 3 mg Haloperidol Lactate (Haldol) Confirm Administered Dose 5 mg .ROUTE .STK-MED ONE Stop: 05/29/18 14:01 Last Admin: 05/29/18 14:50 Dose: Not Given Haloperidol Lactate (Haldol) 2 mg IVPUSH ONETIME ONE Stop: 05/29/18 14:01 Last Admin: 05/29/18 14:00 Dose: 2 mg Haloperidol Lactate (Haldol) 1 mg IVPUSH ONETIME ONE Stop: 05/29/18 14:21 Last Admin: 05/29/18 14:57 Dose: 1 mg Dextrose/Sodium Chloride (Dextrose 5%-Normal Saline) Confirm Administered Dose 1 ,000 mls @ as directed .ROUTE .[facility] ONE Stop: 05/27/18 05:55 Last Admin: 05/27/18 14:53 Dose: Not Given Propofol (Diprivan 100 Ml) Confirm Administered Dose 100 mls @ as directed .ROUTE .[facility] ONE Stop: 05/27/18 06:16 Last Admin: 05/27/18 14:53 Dose: Not Given Dextrose/Sodium Chloride (Dextrose 5%-Normal Saline) Confirm Administered Dose 1 ,000 mls @ as directed .ROUTE .[facility] ONE Stop: 05/27/18 07:00 Last Admin: 05/27/18 14:53 Dose: Not Given Propofol (Diprivan 100 Ml) Confirm Administered Dose 100 mls @ as directed .ROUTE .[facility] ONE Stop: 05/27/18 08:21 Last Admin: 05/27/18 10:33 Dose: Not Given Ampicillin Sodium/Sulbactam (Sodium 3 gm/ Sodium Chloride) 100 mls @ 200 mls/ hr IV Q6H [facility] Last Admin: 05/28/18 18:58 Dose: 200 mls/hr Ceftriaxone Sodium 1 gm/ (Sodium Chloride) 100 mls @ 200 mls/hr IV Q24H [facility] Last Admin: 05/27/18 14:54 Dose: Not Given Magnesium Sulfate 2 gm/ Premix 50 mls @ 25 mls/hr IV ONETIME ONE Stop: 05/27/18 11:14 Last Admin: 05/27/18 10:30 Dose: 25 mls/hr Dextrose/Sodium Chloride (Dextrose 5%-Normal Saline) 1,000 mls @ 125 mls/hr IV ASDIRECTED [facility] Last Infusion: 05/27/18 14:55 Dose: 200 mls/hr Dextrose/Sodium Chloride (Dextrose 5%-Normal Saline) Confirm Administered Dose 1 ,000 mls @ as directed .ROUTE .[facility] ONE Stop: 05/27/18 12:33 Last Admin: 05/27/18 13:05 Dose: Not Given Dextrose/Sodium Chloride (Dextrose 5%-Normal Saline) 1,000 mls @ 150 mls/hr IV ASDIRECTED MAGO Dextrose/Sodium Chloride (Dextrose 5%-Normal Saline) 1,000 mls @ 200 mls/hr IV ASDIRECTED MAGO Dextrose/Water (Dextrose 10% In Water) 500 mls @ 150 mls/hr IV ASDIRECTED MAGO Last Infusion: 05/27/18 19:10 Dose: 200 mls/hr Dextrose/Water (Dextrose 10% In Water) 1,000 mls @ 300 mls/hr IV ASDIRECTED MAGO Last Admin: 05/28/18 00:03 Dose: 300 mls/hr Potassium Chloride (Kcl 10 Meq In Water 100 Ml) 100 mls @ 100 mls/hr IV Q1H MAGO Stop: 05/28/18 03:59 Last Admin: 05/28/18 04:03 Dose: 100 mls/hr Magnesium Sulfate (Magnesium Sulfate 2 Gm In Water 50 Ml) 50 mls @ 25 mls/hr IV ONETIME ONE Stop: 05/28/18 00:14 Last Admin: 05/27/18 23:16 Dose: 25 mls/hr Dextrose/Water (Dextrose 10% In Water) 500 mls @ 300 mls/hr IV ASDIRECTED MAGO Last Admin: 05/29/18 13:26 Dose: 300 mls/hr Magnesium Sulfate 4 gm/ Premix 100 mls @ 25 mls/hr IV ONETIME ONE Stop: 05/28/18 13:59 Last Admin: 05/28/18 10:54 Dose: 25 mls/hr Magnesium Sulfate 4 gm/ Premix 100 mls @ 25 mls/hr IV ONETIME ONE Stop: 05/29/18 15:59 Last Admin: 05/29/18 11:01 Dose: 25 mls/hr Potassium Chloride 10 meq/ (Premix) 100 mls @ 100 mls/hr IV Q1H MAGO Stop: 05/29/18 15:59 Last Admin: 05/29/18 14:50 Dose: 100 mls/hr Thiamine HCl 100 mg/ Sodium (Chloride) 51 mls @ 100 mls/hr IV DAILY MAGO Stop: 05/31/18 09:31 Lorazepam (Ativan) 1 mg IV Q6H PRN PRN Reason: Anxiety Last Admin: 05/29/18 13:50 Dose: 1 mg Lorazepam (Ativan) 1 mg IVPUSH ONETIME ONE Stop: 05/29/18 14:11 Last Admin: 05/29/18 14:10 Dose: 1 mg Midazolam HCl (Versed 5 Mg/Ml) 50 mg .ROUTE .STK-MED ONE Stop: 05/27/18 05:51 Midazolam HCl (Versed 1 Mg/Ml) 10 mg .ROUTE .STK-MED ONE Stop: 05/27/18 05:51 Modafinil (Provigil) 200 mg PO NOW STA Stop: 05/28/18 13:29 Last Admin: 05/28/18 13:44 Dose: 200 mg Modafinil (Provigil) 200 mg PO DAILY MAGO Stop: 05/29/18 08:01 Last Admin: 05/29/18 08:40 Dose: Not Given Racepinephrine (S-2 2.25%) 0.5 ml NEB ONETIME ONE Stop: 05/28/18 13:24 Last Admin: 05/28/18 13:33 Dose: 0.5 ml Racepinephrine (S-2 2.25%) Confirm Administered Dose 0.5 ml .ROUTE .STK-MED ONE Stop: 05/28/18 13:27 Last Admin: 05/28/18 13:33 Dose: Not Given Saccharomyces Boulardii (Florastor) 250 mg PO BID MAGO Stop: 05/30/18 09:01 Last Admin: 05/29/18 21:20 Dose: Not Given Succinylcholine Chloride (Quelicin) 200 mg .ROUTE .STK-MED ONE Stop: 05/27/18 05:51 Thiamine HCl (Vitamin B-1) 100 mg IV ONETIME ONE Stop: 05/29/18 07:46 Last Admin: 05/29/18 08:38 Dose: 100 mg Vecuronium [place] (Vecuronium) 10 mg .ROUTE .STK-MED ONE Stop: 05/27/18 05:51 - Exam General: No Acute Distress, Other (Awake and comfortable). No: Cooperative HEENT: Pupils Equal, Pupils Reactive, Other (dried crusty blood around her nare) Neck: Supple Lungs: Normal Respiratory Effort, Decreased Breath Sounds Cardiovascular: Regular Rate, Regular Rhythm GI/Abdominal Exam: Normal Bowel Sounds, Soft, Non-Tender, No Organomegaly, No Distention, No Abnormal Bruit, No Mass (Female) Exam: Other (indwlling avalos catheter) Back Exam: Other (deferred) Extremities: Normal Inspection, Normal Range of Motion, Non-Tender, No Pedal Edema, Normal Capillary Refill Peripheral Pulses: 2+: Dorsalis Pedis (L), Dorsalis Pedis (R) Skin: Dry, Intact Neurological: Other (unable to perform , she is to able to follow commands) Psy/Mental Status: Normal Affect, Normal Mood, Other (Awake) - Problem List Review Problem List Initiated/Reviewed/Updated: Yes - My Orders Last 24 Hours: My Active Orders 05/29/18 14:49 EKG 12 Lead [EK] Routine 05/29/18 16:00 Dextrose 10% in Water 1,000 ml IV ASDIRECTED 05/29/18 18:16 CIWAA Assessment [RC] Q1HR LORazepam [Ativan] See Protocol IV Q4H PRN 05/29/18 18:17 Notify Provider [RC] PRN chlordiazePOXIDE [Librium] 25 mg PO Q8H PRN cloNIDine [Catapres] 0.1 mg PO Q4H PRN Seizure Precautions [OM.PC] Routine 05/29/18 18:30 LORazepam [Ativan] See Protocol IV ASDIRECTED 05/30/18 08:00 Brain wo Cont [MR] Routine Magnesium Sulfate/Water [Magnesium Sulfate 4 GM in Water 100 ML] 4 gm Premix Bag 1 bag IV ONETIME 05/30/18 09:00 Thiamine [Vitamin B-1] 100 mg IVPUSH DAILY 05/31/18 05:11 BASIC METABOLIC PANEL,BMP [CHEM] AM C-REACTIVE PROTEIN [CHEM] AM CBC WITH AUTO DIFF [HEME] AM MAGNESIUM [CHEM] AM 06/01/18 05:11 BASIC METABOLIC PANEL,BMP [CHEM] AM C-REACTIVE PROTEIN [CHEM] AM CBC WITH AUTO DIFF [HEME] AM MAGNESIUM [CHEM] AM 06/02/18 05:11 BASIC METABOLIC PANEL,BMP [CHEM] AM C-REACTIVE PROTEIN [CHEM] AM CBC WITH AUTO DIFF [HEME] AM MAGNESIUM [CHEM] AM - Plan Plan:: Assessment/Plan: Acute: Anoxic Brain Injury - She appears to be in a semi-vegetative state - She was out for unknown duration; deprived of glucose and +/- O2 plus she was also intoxicated - Severity unclear at this point; only time will tell - Unable to perform neuro exam due to inability to follow simple commands - Brain MRI report reads nothing acute is appreciated - EEG completed with pending report - Spoke to Dr. Connolly on-call Neurologist in [facility] and discussed case with him. He recommends to wait a few more days; if she does not recover cognitively then we would address nutritional status and possibly penitentiary rather than stroker rehab AMS - 2/2 Hypoxic Brain Injury - Unclear how long she was out - She was severely hypoglycemic plus intoxicated with MELANI level of 0.18 - Head CT scan and MRI both show no acute intra-cranial abnormality - Completed EEG pending report Permissive Hyperglycemia, Improved - BS now < 200 - She is unable to take food orally due to AMS - Continue Dextrose but will titrate rate as needed Resolved: S/p Respiratory Failure w/ Possible Associated Aspiration - 2/2 AMS and Not able to Protect her Airway - ABG shows pH of 7.19, pCO2 of 58.7, pO2 of 81, HCO3 of 21.7, O2 Sat of 91.8 on Vent; her repeat ABG looks good plan for extubation after morning rounds today - Initial Vent Setting: AC 500/VT, 16/RR, 5/PEEP on 80% FiO2; now AC 500/12/5 /30% - IV Unasyn for Aspiration Syndrome coverage - Sedation vacation with plan for extubation S/p Severe Hypoglycemia - Iatrogenic from significant amount of insulin she took - Hypoglycemia protocol plus on dextrose IV fluids - Continue routine accu-check PS/p ositive Troponin W/ Prolonged QT - Likely 2/2 Demand Ischemia - Malignant Hypertensive on presentation - CKMB is negative - Serial EKGs and will continue to monitor S/p Malignant HTN - Carries a hx/o HTN - Documented BP of 203/132 and 148/102 mmHg - Now improved - Resume home BP meds along with PRN anti-hypertensive agents S/p Suicide Attempt via OD of Insulin - Carries a hx/o it in the past - Took for pens of [place] insulin - She has received dextrose en route and while in ED - She is currently on D5W for maintenance; will continue it - Accu-check Q1H and may change to [id number] as needed - 1:1 care once off vent - Tele-psych and SAC consult when appropriate Chronic: Impaired Vision HTN Asthma GERD Hx/o Pancreatitis Fibroids OA/DJD Hx/o Suicide Attempt Depression DM1 and MANOJ Plan: She remains comfortable and hemodynamically stable Continue D5W for glucose maintenance at 150cc/hr; may need PEG tube down the road if she remains in a semi-vegetative state Routine AM Labs Aspiration Precaution Accu-check Q6H DVT/GI PPx: Lovenox SQ/PPI Continue routine Accu-check w/ hypoglycemia protocol SW/CM for d/c planning for possible NS vs stroke rehab placement Code status: 1 LOS anticipate > 96 hrs due to slow response to treatment Prognosis is guarded-devastating (fpc prognosis)
--- NOTE | 2018-05-30 09:25 | MR ---
MRI brain Technique: T1 and T2 FLAIR sagittal; T2, T2 FLAIR, T1 and diffusion axial; T1 and gradient echo coronal images were obtained through the brain. Comparison: Prior head CT study of 05/27/18. Findings: Right maxillary sinus is almost completely opacified compatible with prominent mucosal thickening and possible superimposed retention cysts. Minimal fluid is noted within the right maxillary sinus. Mild mucosal thickening is seen within the right frontal sinus and ethmoid sinuses as well as right sphenoid sinus. Ventricles along with basal cisterns and sulci over the convexities are within normal limits for the patient's age. No abnormal signal is seen within the brain parenchyma. Normal signal void is seen within the major cerebral arteries within the skull base. No acute diffusion abnormalities are seen. No midline shift or mass effect is seen. Impression: 1. Sinus findings as noted above likely representing chronic sinusitis. 2. Nothing acute is appreciated on MRI study of the brain. Diagnostic code #2
[2018-05-30] MEDS: Saccharomyces Boulardii (Probiotic) 250 MG Cap PO SCH (09:26)
[2018-05-30] MEDS: Enoxaparin 40 MG/0.4 ML Syringe SUBCUT SCH (09:35)
[2018-05-30] MEDS: Thiamine 200 MG/2 ML MDV IVPUSH SCH (09:36)
[2018-05-30] MEDS: hydrALAZINE 20 MG/ML SDV IVPUSH PRN (17:14)
[2018-05-31] MEDS: Pantoprazole 40 MG Vial IVPUSH SCH ×2 (03:09→15:25)
[2018-05-31] MEDS ORDERED: Insulin Lispro 100 UNIT/ML 10 ML VIAL SUBCUT SCH (07:15)
--- NOTE | 2018-05-31 07:15 | PCM.PN ---
- General Info Date of Service: 05/31/18 Admission Dx/Problem (Free Text): Admission Diagnosis/Problem Admission Diagnosis/Problem Intentional overdose of drug by injectable substance Subjective Update: Follow Up Functional Status: Reports: Pain Controlled, Urinating. Denies: Tolerating Diet , Ambulating, New Symptoms - Review of Systems General: Denies: Fever, Chills HEENT: Reports: No Symptoms Pulmonary: Denies: Shortness of Breath Cardiovascular: Denies: Chest Pain, Dyspnea on Exertion, Lightheadedness Gastrointestinal: Denies: Abdominal Pain, Nausea, Vomiting Genitourinary: Reports: No Symptoms Musculoskeletal: Reports: No Symptoms Skin: Denies: Cyanosis Neurological: Reports: No Symptoms Psychiatric: Reports: No Symptoms Systems Review Comment:: No overnight or acute issues. She is essentially the same as yesterday. She was awake all night. Her eyes are wide open but does tract and does not follow simple commands. Her BS is 331 this AM already on 100cc/hr on D10W. Her urine output been low and her sodium starting to drop. - Patient Data Vitals - Most Recent: Last Vital Signs Temp 36.9 C 05/31/18 03:00 Pulse 114 H 05/30/18 04:00 Resp 23 H 05/31/18 03:00 BP 146/73 H 05/31/18 03:00 Pulse Ox 98 05/31/18 03:00 Weight - Most Recent: 86.183 kg I&O - Last 24 Hours: Intake & Output 05/30/18 05/31/18 05/31/18 22:59 06:59 14:59 Intake Total 1842 875 Output Total 875 240 Balance 967 635 Lab Results Last 24 Hours: Laboratory Results - last 24 hr 05/30/18 05/30/18 05/30/18 Range/Units 12:08 18:18 23:29 WBC (3.98-10.04) K/mm3 RBC (3.98-5.22) M/mm3 Hgb (11.2-15.7) gm/L Hct (34.1-44.9) % MCV (79.4-94.8) fl MCH (25.6-32.2) pg MCHC (32.2-35.5) g/dl RDW Std Deviation (36.4-46.3) fL Plt Count (182-369) K/mm3 MPV (9.4-12.3) fl Neut % (Auto) (34.0-71.1) % Lymph % (Auto) (19.3-51.7) % [place] % (Auto) (4.7-12.5) % Eos % (Auto) (0.7-5.8) Baso % (Auto) (0.1-1.2) % Neut # (Auto) (1.56-6.13) K/mm3 Lymph # (Auto) (1.18-3.74) K/mm3 [place] # (Auto) (0.24-0.36) K/mm3 Eos # (Auto) (0.04-0.36) K/mm3 Baso # (Auto) (0.01-0.08) K/mm3 Sodium (136-145) mEq/L Potassium (3.5-5.1) mEq/L Chloride (98-107) mEq/L Carbon Dioxide (21-32) mEq/L Anion Gap (5-15) BUN (7-18) mg/dL Creatinine (0.55-1.02) mg/dL Est Cr Clr Drug Dosing mL/min Estimated GFR (MDRD) (>60) mL/min BUN/Creatinine Ratio (14-18) Glucose (74-106) mg/dL POC Glucose 136 H 277 H 254 H (70-105) mg/dL Calcium (8.5-10.1) mg/dL Magnesium (1.8-2.4) mg/dl C-Reactive Protein (<1.0) mg/dL 05/31/18 05/31/18 Range/Units 05:30 05:30 WBC 3.09 L (3.98-10.04) K/mm3 RBC 3.07 L (3.98-5.22) M/mm3 Hgb 10.9 L (11.2-15.7) gm/L Hct 32.1 L (34.1-44.9) % MCV 104.6 H (79.4-94.8) fl MCH 35.5 H (25.6-32.2) pg MCHC 34.0 (32.2-35.5) g/dl RDW Std Deviation 44.0 (36.4-46.3) fL Plt Count 124 L (182-369) K/mm3 MPV 10.0 (9.4-12.3) fl Neut % (Auto) 58.6 (34.0-71.1) % Lymph % (Auto) 26.2 (19.3-51.7) % [place] % (Auto) 12.3 (4.7-12.5) % Eos % (Auto) 2.3 (0.7-5.8) Baso % (Auto) 0.6 (0.1-1.2) % Neut # (Auto) 1.81 (1.56-6.13) K/mm3 Lymph # (Auto) 0.81 L (1.18-3.74) K/mm3 [place] # (Auto) 0.38 H (0.24-0.36) K/mm3 Eos # (Auto) 0.07 (0.04-0.36) K/mm3 Baso # (Auto) 0.02 (0.01-0.08) K/mm3 Sodium 130 L (136-145) mEq/L Potassium 4.6 (3.5-5.1) mEq/L Chloride 100 (98-107) mEq/L Carbon Dioxide 24 (21-32) mEq/L Anion Gap 10.6 (5-15) BUN 6 L (7-18) mg/dL Creatinine 1.1 H (0.55-1.02) mg/dL Est Cr Clr Drug Dosing 63.22 mL/min Estimated GFR (MDRD) 52 (>60) mL/min BUN/Creatinine Ratio 5.5 L (14-18) Glucose 300 H (74-106) mg/dL POC Glucose (70-105) mg/dL Calcium 8.1 L (8.5-10.1) mg/dL Magnesium 2.0 (1.8-2.4) mg/dl C-Reactive Protein 0.5 (<1.0) mg/dL Med Orders - Current: Current Medications Acetaminophen (Tylenol) 650 mg PO Q4H PRN PRN Reason: Pain (Mild 1-3)/fever Hydrocodone Bitart/Acetaminophen ([place] 325-5 Mg) 1 tab PO Q4H PRN PRN Reason: Pain (moderate 4-6) Albuterol/Ipratropium (Duoneb 3.0-0.5 Mg/3 Ml) 3 ml NEB Q4H PRN PRN Reason: Shortness Of Breath/wheezing Bisacodyl (Dulcolax) 5 mg PO DAILY PRN PRN Reason: Constipation Chlordiazepoxide HCl (Librium) 25 mg PO Q8H PRN PRN Reason: Withdrawal Symptoms Clonidine HCl (Catapres) 0.1 mg PO Q4H PRN PRN Reason: Agitation Dextrose/Water (Dextrose 50% In Water) 50 ml IVPUSH ASDIRECTED PRN PRN Reason: Hypoglycemia Last Admin: 05/28/18 23:08 Dose: 25 ml Docusate Sodium (Colace) 100 mg PO BID PRN PRN Reason: Constipation Enoxaparin Sodium (Lovenox) 40 mg SUBCUT DAILY MAGO Last Admin: 05/30/18 09:35 Dose: 40 mg Hydralazine HCl (Apresoline) 20 mg IVPUSH Q4H PRN PRN Reason: Hypertension Last Admin: 05/30/18 17:14 Dose: 20 mg Hydromorphone HCl (Dilaudid) 0.25 mg IVPUSH Q2H PRN PRN Reason: Pain (severe 7-10) Promethazine HCl 6.25 mg/ (Sodium Chloride) 50.25 mls @ 100 mls/hr IV Q6H PRN PRN Reason: Nausea/Vomiting Propofol (Diprivan 100 Ml) 100 mls @ 0.9 mls/hr IV TITRATE MAGO; Protocol Last Titration: 05/28/18 13:15 Dose: 0 mcg/kg/min, 0 mls/hr Dextrose/Water (Dextrose 10% In Water) 1,000 mls @ 100 mls/hr IV ASDIRECTED MAGO Last Admin: 05/31/18 00:29 Dose: 100 mls/hr Insulin Human Lispro (Humalog) 0 unit SUBCUT Q6H MAGO; Protocol Lorazepam (Ativan) 2 mg IVPUSH Q4H PRN PRN Reason: Seizures Lorazepam (Ativan) 0 mg IV Q4H PRN; Protocol PRN Reason: Withdrawal Symptoms Last Admin: 05/30/18 09:00 Dose: 2 mg Lorazepam (Ativan) 0 mg IV ASDIRECTED MAGO; Protocol Last Admin: 05/29/18 18:25 Dose: 2 mg Magnesium Sulfate (Pharmacy To Dose - Magnesium Replacement) 0 dose .XX ASDIRECTED PRN PRN Reason: RX TO WATCH MAG Metoprolol Tartrate (Lopressor) 5 mg IVPUSH Q4H PRN PRN Reason: Tachycardia Last Admin: 05/28/18 12:30 Dose: 5 mg Ondansetron HCl (Zofran) 4 mg IV Q6H PRN PRN Reason: Nausea/Vomiting Pantoprazole Sodium (Protonix Iv) 40 mg IVPUSH Q12H [facility] Last Admin: 05/31/18 03:09 Dose: 40 mg Potassium Chloride (Pharmacy To Dose - Potassium Replacement) 0 dose .XX ASDIRECTED PRN PRN Reason: RX TO WATCH K Senna/Docusate Sodium (Senna Plus) 1 tab PO BID PRN PRN Reason: Constipation Sodium Chloride (Sodium Chloride 0.9%) 3 ml INH ASDIRECTED PRN PRN Reason: mix with racepinephrine neb Temazepam (Restoril) 7.5 mg PO BEDTIME PRN PRN Reason: Sleep Thiamine HCl (Vitamin B-1) 100 mg IVPUSH DAILY [facility] Stop: 05/31/18 09:01 Last Admin: 05/30/18 09:36 Dose: 100 mg Discontinued Medications Clonidine HCl (Catapres-Tts 3) 0.3 mg TRDERM Q7D ONE Stop: 05/27/18 09:01 Last Admin: 05/27/18 09:59 Dose: Not Given Dextrose/Water (Dextrose 50% In Water) Confirm Administered Dose 50 ml .ROUTE .STK-MED ONE Stop: 05/27/18 06:23 Last Admin: 05/27/18 14:53 Dose: Not Given Dextrose/Water (Dextrose 50% In Water) Confirm Administered Dose 50 ml .ROUTE .STK-MED ONE Stop: 05/27/18 13:07 Last Admin: 05/27/18 13:12 Dose: Not Given Dextrose/Water (Dextrose 50% In Water) 50 ml IVPUSH ASDIRECTED PRN PRN Reason: Hypoglycemia Diazepam (Valium) 3 mg IV ONETIME ONE Stop: 05/30/18 08:04 Last Admin: 05/30/18 08:16 Dose: 3 mg Haloperidol Lactate (Haldol) Confirm Administered Dose 5 mg .ROUTE .STK-MED ONE Stop: 05/29/18 14:01 Last Admin: 05/29/18 14:50 Dose: Not Given Haloperidol Lactate (Haldol) 2 mg IVPUSH ONETIME ONE Stop: 05/29/18 14:01 Last Admin: 05/29/18 14:00 Dose: 2 mg Haloperidol Lactate (Haldol) 1 mg IVPUSH ONETIME ONE Stop: 05/29/18 14:21 Last Admin: 05/29/18 14:57 Dose: 1 mg Dextrose/Sodium Chloride (Dextrose 5%-Normal Saline) Confirm Administered Dose 1 ,000 mls @ as directed .ROUTE .[facility] ONE Stop: 05/27/18 05:55 Last Admin: 05/27/18 14:53 Dose: Not Given Propofol (Diprivan 100 Ml) Confirm Administered Dose 100 mls @ as directed .ROUTE .[facility] ONE Stop: 05/27/18 06:16 Last Admin: 05/27/18 14:53 Dose: Not Given Dextrose/Sodium Chloride (Dextrose 5%-Normal Saline) Confirm Administered Dose 1 ,000 mls @ as directed .ROUTE .[facility] ONE Stop: 05/27/18 07:00 Last Admin: 05/27/18 14:53 Dose: Not Given Propofol (Diprivan 100 Ml) Confirm Administered Dose 100 mls @ as directed .ROUTE .[facility] ONE Stop: 05/27/18 08:21 Last Admin: 05/27/18 10:33 Dose: Not Given Ampicillin Sodium/Sulbactam (Sodium 3 gm/ Sodium Chloride) 100 mls @ 200 mls/ hr IV Q6H [facility] Last Admin: 05/28/18 18:58 Dose: 200 mls/hr Ceftriaxone Sodium 1 gm/ (Sodium Chloride) 100 mls @ 200 mls/hr IV Q24H [facility] Last Admin: 05/27/18 14:54 Dose: Not Given Magnesium Sulfate 2 gm/ Premix 50 mls @ 25 mls/hr IV ONETIME ONE Stop: 05/27/18 11:14 Last Admin: 05/27/18 10:30 Dose: 25 mls/hr Dextrose/Sodium Chloride (Dextrose 5%-Normal Saline) 1,000 mls @ 125 mls/hr IV ASDIRECTED [facility] Last Infusion: 05/27/18 14:55 Dose: 200 mls/hr Dextrose/Sodium Chloride (Dextrose 5%-Normal Saline) Confirm Administered Dose 1 ,000 mls @ as directed .ROUTE .ST-MED ONE Stop: 05/27/18 12:33 Last Admin: 05/27/18 13:05 Dose: Not Given Dextrose/Sodium Chloride (Dextrose 5%-Normal Saline) 1,000 mls @ 150 mls/hr IV ASDIRECTED MAGO Dextrose/Sodium Chloride (Dextrose 5%-Normal Saline) 1,000 mls @ 200 mls/hr IV ASDIRECTED MAGO Dextrose/Water (Dextrose 10% In Water) 500 mls @ 150 mls/hr IV ASDIRECTED MAGO Last Infusion: 05/27/18 19:10 Dose: 200 mls/hr Dextrose/Water (Dextrose 10% In Water) 1,000 mls @ 300 mls/hr IV ASDIRECTED MAGO Last Admin: 05/28/18 00:03 Dose: 300 mls/hr Potassium Chloride (Kcl 10 Meq In Water 100 Ml) 100 mls @ 100 mls/hr IV Q1H MAGO Stop: 05/28/18 03:59 Last Admin: 05/28/18 04:03 Dose: 100 mls/hr Magnesium Sulfate (Magnesium Sulfate 2 Gm In Water 50 Ml) 50 mls @ 25 mls/hr IV ONETIME ONE Stop: 05/28/18 00:14 Last Admin: 05/27/18 23:16 Dose: 25 mls/hr Dextrose/Water (Dextrose 10% In Water) 500 mls @ 300 mls/hr IV ASDIRECTED MAGO Last Admin: 05/29/18 13:26 Dose: 300 mls/hr Magnesium Sulfate 4 gm/ Premix 100 mls @ 25 mls/hr IV ONETIME ONE Stop: 05/28/18 13:59 Last Admin: 05/28/18 10:54 Dose: 25 mls/hr Magnesium Sulfate 4 gm/ Premix 100 mls @ 25 mls/hr IV ONETIME ONE Stop: 05/29/18 15:59 Last Admin: 05/29/18 11:01 Dose: 25 mls/hr Potassium Chloride 10 meq/ (Premix) 100 mls @ 100 mls/hr IV Q1H MAGO Stop: 05/29/18 15:59 Last Admin: 05/29/18 14:50 Dose: 100 mls/hr Thiamine HCl 100 mg/ Sodium (Chloride) 51 mls @ 100 mls/hr IV DAILY MAGO Stop: 05/31/18 09:31 Dextrose/Water (Dextrose 10% In Water) 1,000 mls @ 150 mls/hr IV ASDIRECTED [facility] Last Infusion: 05/30/18 18:31 Dose: 100 mls/hr Magnesium Sulfate 4 gm/ Premix 100 mls @ 25 mls/hr IV ONETIME ONE Stop: 05/30/18 11:59 Last Admin: 05/30/18 09:26 Dose: 25 mls/hr Lorazepam (Ativan) 1 mg IV Q6H PRN PRN Reason: Anxiety Last Admin: 05/29/18 13:50 Dose: 1 mg Lorazepam (Ativan) 1 mg IVPUSH ONETIME ONE Stop: 05/29/18 14:11 Last Admin: 05/29/18 14:10 Dose: 1 mg Midazolam HCl (Versed 5 Mg/Ml) 50 mg .ROUTE .STK-MED ONE Stop: 05/27/18 05:51 Midazolam HCl (Versed 1 Mg/Ml) 10 mg .ROUTE .STK-MED ONE Stop: 05/27/18 05:51 Modafinil (Provigil) 200 mg PO NOW STA Stop: 05/28/18 13:29 Last Admin: 05/28/18 13:44 Dose: 200 mg Modafinil (Provigil) 200 mg PO DAILY MAGO Stop: 05/29/18 08:01 Last Admin: 05/29/18 08:40 Dose: Not Given Racepinephrine (S-2 2.25%) 0.5 ml NEB ONETIME ONE Stop: 05/28/18 13:24 Last Admin: 05/28/18 13:33 Dose: 0.5 ml Racepinephrine (S-2 2.25%) Confirm Administered Dose 0.5 ml .ROUTE .STK-MED ONE Stop: 05/28/18 13:27 Last Admin: 05/28/18 13:33 Dose: Not Given Saccharomyces Boulardii (Florastor) 250 mg PO BID MAGO Stop: 05/30/18 09:01 Last Admin: 05/30/18 09:26 Dose: Not Given Succinylcholine Chloride (Quelicin) 200 mg .ROUTE .STK-MED ONE Stop: 05/27/18 05:51 Thiamine HCl (Vitamin B-1) 100 mg IV ONETIME ONE Stop: 05/29/18 07:46 Last Admin: 05/29/18 08:38 Dose: 100 mg Vecuronium [place] (Vecuronium) 10 mg .ROUTE .STK-MED ONE Stop: 05/27/18 05:51 - Exam Quality Assessment: No: Supplemental Oxygen General: No Acute Distress, Other (Awake). No: Alert HEENT: Pupils Equal, Pupils Reactive, Other (sore on left nare) Neck: Supple Lungs: Clear to Auscultation, Normal Respiratory Effort Cardiovascular: Regular Rate, Regular Rhythm GI/Abdominal Exam: Normal Bowel Sounds, Soft, Non-Tender, No Organomegaly, No Distention, No Abnormal Bruit (Female) Exam: Other (indwelling avalos catheter) Back Exam: Other (deferred) Extremities: Normal Inspection, Non-Tender, No Pedal Edema, Normal Capillary Refill Peripheral Pulses: 2+: Dorsalis Pedis (L), Dorsalis Pedis (R) Skin: Warm, Dry, Intact Neurological: Other (deferred) Psy/Mental Status: Other (flat affect) Physical Findings Comments:: She is in a semi-vegetative state. She moves her hands and legs arounds spontaneously. She is essentially the same as yesterday. She flinches with painful stimuli (i.e. sternal rub, pen poke and pinching) but no verbal response or any attempt to stop it. Her urine output is low and Cr level starting to go up. Her sodium is going down. - Problem List Review Problem List Initiated/Reviewed/Updated: Yes - My Orders Last 24 Hours: My Active Orders 05/30/18 09:00 Thiamine [Vitamin B-1] 100 mg IVPUSH DAILY 05/30/18 18:27 Patient Status [ADT] Routine 05/30/18 18:30 Dextrose 10% in Water 1,000 ml IV ASDIRECTED 05/31/18 07:15 Insulin Lispro [HumaLOG] See Protocol SUBCUT Q6H 06/01/18 05:11 BASIC METABOLIC PANEL,BMP [CHEM] AM C-REACTIVE PROTEIN [CHEM] AM CBC WITH AUTO DIFF [HEME] AM MAGNESIUM [CHEM] AM 06/02/18 05:11 BASIC METABOLIC PANEL,BMP [CHEM] AM C-REACTIVE PROTEIN [CHEM] AM CBC WITH AUTO DIFF [HEME] AM MAGNESIUM [CHEM] AM - Plan Plan:: Assessment/Plan: Acute: Anoxic Brain Injury - She appears to be in a semi-vegetative state - She was out for unknown duration; deprived of glucose and +/- O2 plus she was also intoxicated - Severity unclear at this point; only time will tell - Unable to perform neuro exam due to inability to follow simple commands - Brain MRI report reads nothing acute is appreciated - EEG completed with pending report - Spoke to Dr. Connolly on-call Neurologist in [facility] and discussed case with him. He recommends to wait a few more days; if she does not recover cognitively then we would address nutritional status and possibly prison rather than stroker rehab Permissive Hyperglycemia, Worse today - BS starting to go up - She is unable to take food orally due to AMS - D10w will switch to D5W0.9NS since her sodium is trending down and urine output is low - Low dose ISS Resolved: S/p Respiratory Failure w/ Possible Associated Aspiration - 2/2 AMS and Not able to Protect her Airway - ABG shows pH of 7.19, pCO2 of 58.7, pO2 of 81, HCO3 of 21.7, O2 Sat of 91.8 on Vent; her repeat ABG looks good plan for extubation after morning rounds today - Initial Vent Setting: AC 500/VT, 16/RR, 5/PEEP on 80% FiO2; now AC 500/12/5 /30% - IV Unasyn for Aspiration Syndrome coverage - Sedation vacation with plan for extubation S/p Severe Hypoglycemia - Iatrogenic from significant amount of insulin she took - Hypoglycemia protocol plus on dextrose IV fluids - Continue routine accu-check S/p Positive Troponin W/ Prolonged QT - Likely 2/2 Demand Ischemia - Malignant Hypertensive on presentation - CKMB is negative - Serial EKGs and will continue to monitor S/p Malignant HTN - Carries a hx/o HTN - Documented BP of 203/132 and 148/102 mmHg - Now improved - Resume home BP meds along with PRN anti-hypertensive agents S/p Suicide Attempt via OD of Insulin - Carries a hx/o it in the past - Took for pens of [place] insulin - She has received dextrose en route and while in ED - She is currently on D5W for maintenance; will continue it - Accu-check Q1H and may change to [id number] as needed - 1:1 care once off vent - Tele-psych and SAC consult when appropriate Chronic: Impaired Vision HTN Asthma GERD Hx/o Pancreatitis Fibroids OA/DJD Hx/o Suicide Attempt Depression DM1 and MANOJ Plan: She remains comfortable and hemodynamically stable Transfer to [facility] [[email or web address]] Changed IVF to D5W0.9%NS for glucose maintenance at 125cc/hr; consider PEG tube in AM if she remains in a semi-vegetative state (no sense of awareness) Routine AM Labs Aspiration Precaution Accu-check Q6H Discontinue avalos catheter Continue IV Thiamine DVT/GI PPx: Lovenox SQ/PPI Continue routine Accu-check w/ hypoglycemia protocol SW/CM for d/c planning for possible NS vs stroke rehab placement Code status: 1 LOS > 96 hrs due to pending [facility] placement and the need for possible PEG tube placement
[2018-05-31] MEDS: Insulin Lispro 100 UNIT/ML 10 ML VIAL SUBCUT SCH ×3 (08:15→17:53)
[2018-05-31] MEDS: Enoxaparin 40 MG/0.4 ML Syringe SUBCUT SCH (08:17)
[2018-05-31] MEDS: Thiamine 200 MG/2 ML MDV IVPUSH SCH (08:18)
[2018-05-31] MEDS: Dextrose 5%-0.9% NaCl 1,000 ML IV SCH ×2 (11:58→21:29)
[2018-05-31] MEDS: Metoprolol Tartrate 5 MG/5 ML SDV IVPUSH PRN ×2 (12:45→22:44)
[2018-05-31] MEDS: hydrALAZINE 20 MG/ML SDV IVPUSH PRN (15:23)
[2018-06-01] MEDS: Insulin Lispro 100 UNIT/ML 10 ML VIAL SUBCUT SCH ×5 (00:04→23:24)
[2018-06-01] MEDS: LORazepam 2 MG/ML SDV IV PRN (00:16)
[2018-06-01] MEDS: Pantoprazole 40 MG Vial IVPUSH SCH ×2 (02:27→15:54)
[2018-06-01] MEDS ORDERED: Sodium Chloride 0.9% 500 ML IV ONE (07:37)
--- NOTE | 2018-06-01 07:39 | PCM.PN ---
- General Info Date of Service: 06/01/18 Admission Dx/Problem (Free Text): Admission Diagnosis/Problem Admission Diagnosis/Problem Intentional overdose of drug by injectable substance Subjective Update: Follow Up Functional Status: Reports: Pain Controlled, Urinating. Denies: New Symptoms - Review of Systems General: Denies: Fever, Chills HEENT: Reports: No Symptoms Pulmonary: Denies: Shortness of Breath Cardiovascular: Denies: Chest Pain, Dyspnea on Exertion, Lightheadedness Gastrointestinal: Denies: Abdominal Pain, Nausea, Vomiting Genitourinary: Reports: No Symptoms Skin: Denies: Cyanosis, Mottled, Pallor, Diaphoresis, Bruising Neurological: Denies: Confusion, Weakness, Gait Disturbance Psychiatric: Denies: Depression, Anxiety, Agitation, Hallucinations Systems Review Comment:: No overnight or acute issues. She is essentially the same. Unable to follow cues and eyes does not tract. When offered food, she stares at it and does not know what to do with it. She is still NPO but her glucose are in the 200-300s. Her Mg level today is slightly low at 1.6. - Patient Data Vitals - Most Recent: Last Vital Signs Temp 37.4 C 06/01/18 03:06 Pulse 106 H 06/01/18 03:06 Resp 18 06/01/18 03:06 BP 138/92 H 06/01/18 03:06 Pulse Ox 98 06/01/18 03:06 Weight - Most Recent: 85.275 kg I&O - Last 24 Hours: Intake & Output 05/31/18 06/01/18 06/01/18 22:59 06:59 14:59 Intake Total 103 1173 Output Total 950 Balance 103 223 Lab Results Last 24 Hours: Laboratory Results - last 24 hr 05/31/18 05/31/18 05/31/18 Range/Units 05:28 11:30 17:46 WBC (3.98-10.04) K/mm3 RBC (3.98-5.22) M/mm3 Hgb (11.2-15.7) gm/L Hct (34.1-44.9) % MCV (79.4-94.8) fl MCH (25.6-32.2) pg MCHC (32.2-35.5) g/dl RDW Std Deviation (36.4-46.3) fL Plt Count (182-369) K/mm3 MPV (9.4-12.3) fl Neut % (Auto) (34.0-71.1) % Lymph % (Auto) (19.3-51.7) % [place] % (Auto) (4.7-12.5) % Eos % (Auto) (0.7-5.8) Baso % (Auto) (0.1-1.2) % Neut # (Auto) (1.56-6.13) K/mm3 Lymph # (Auto) (1.18-3.74) K/mm3 [place] # (Auto) (0.24-0.36) K/mm3 Eos # (Auto) (0.04-0.36) K/mm3 Baso # (Auto) (0.01-0.08) K/mm3 Sodium (136-145) mEq/L Potassium (3.5-5.1) mEq/L Chloride (98-107) mEq/L Carbon Dioxide (21-32) mEq/L Anion Gap (5-15) BUN (7-18) mg/dL Creatinine (0.55-1.02) mg/dL Est Cr Clr Drug Dosing mL/min Estimated GFR (MDRD) (>60) mL/min BUN/Creatinine Ratio (14-18) Glucose (74-106) mg/dL POC Glucose 331 H 230 H 370 H (70-105) mg/dL Calcium (8.5-10.1) mg/dL Magnesium (1.8-2.4) mg/dl C-Reactive Protein (<1.0) mg/dL 05/31/18 06/01/18 06/01/18 Range/Units 23:39 06:38 06:40 WBC 2.81 L (3.98-10.04) K/mm3 RBC 2.70 L (3.98-5.22) M/mm3 Hgb 9.7 L (11.2-15.7) gm/L Hct 28.3 L (34.1-44.9) % MCV 104.8 H (79.4-94.8) fl MCH 35.9 H (25.6-32.2) pg MCHC 34.3 (32.2-35.5) g/dl RDW Std Deviation 43.5 (36.4-46.3) fL Plt Count 125 L (182-369) K/mm3 MPV 9.6 (9.4-12.3) fl Neut % (Auto) 45.2 (34.0-71.1) % Lymph % (Auto) 35.6 (19.3-51.7) % [place] % (Auto) 16.7 H (4.7-12.5) % Eos % (Auto) 2.1 (0.7-5.8) Baso % (Auto) 0.4 (0.1-1.2) % Neut # (Auto) 1.27 L (1.56-6.13) K/mm3 Lymph # (Auto) 1.00 L (1.18-3.74) K/mm3 [place] # (Auto) 0.47 H (0.24-0.36) K/mm3 Eos # (Auto) 0.06 (0.04-0.36) K/mm3 Baso # (Auto) 0.01 (0.01-0.08) K/mm3 Sodium (136-145) mEq/L Potassium (3.5-5.1) mEq/L Chloride (98-107) mEq/L Carbon Dioxide (21-32) mEq/L Anion Gap (5-15) BUN (7-18) mg/dL Creatinine (0.55-1.02) mg/dL Est Cr Clr Drug Dosing mL/min Estimated GFR (MDRD) (>60) mL/min BUN/Creatinine Ratio (14-18) Glucose (74-106) mg/dL POC Glucose 295 H 302 H (70-105) mg/dL Calcium (8.5-10.1) mg/dL Magnesium (1.8-2.4) mg/dl C-Reactive Protein (<1.0) mg/dL 06/01/18 Range/Units 06:40 WBC (3.98-10.04) K/mm3 RBC (3.98-5.22) M/mm3 Hgb (11.2-15.7) gm/L Hct (34.1-44.9) % MCV (79.4-94.8) fl MCH (25.6-32.2) pg MCHC (32.2-35.5) g/dl RDW Std Deviation (36.4-46.3) fL Plt Count (182-369) K/mm3 MPV (9.4-12.3) fl Neut % (Auto) (34.0-71.1) % Lymph % (Auto) (19.3-51.7) % [place] % (Auto) (4.7-12.5) % Eos % (Auto) (0.7-5.8) Baso % (Auto) (0.1-1.2) % Neut # (Auto) (1.56-6.13) K/mm3 Lymph # (Auto) (1.18-3.74) K/mm3 [place] # (Auto) (0.24-0.36) K/mm3 Eos # (Auto) (0.04-0.36) K/mm3 Baso # (Auto) (0.01-0.08) K/mm3 Sodium 136 (136-145) mEq/L Potassium 4.2 (3.5-5.1) mEq/L Chloride 105 (98-107) mEq/L Carbon Dioxide 22 (21-32) mEq/L Anion Gap 13.2 (5-15) BUN 11 (7-18) mg/dL Creatinine 1.1 H (0.55-1.02) mg/dL Est Cr Clr Drug Dosing 63.22 mL/min Estimated GFR (MDRD) 52 (>60) mL/min BUN/Creatinine Ratio 10.0 L (14-18) Glucose 264 H (74-106) mg/dL POC Glucose (70-105) mg/dL Calcium 8.4 L (8.5-10.1) mg/dL Magnesium 1.6 L (1.8-2.4) mg/dl C-Reactive Protein 0.4 (<1.0) mg/dL Med Orders - Current: Current Medications Acetaminophen (Tylenol) 650 mg PO Q4H PRN PRN Reason: Pain (Mild 1-3)/fever Hydrocodone Bitart/Acetaminophen ([place]beer 325-5 Mg) 1 tab PO Q4H PRN PRN Reason: Pain (moderate 4-6) Albuterol/Ipratropium (Duoneb 3.0-0.5 Mg/3 Ml) 3 ml NEB Q4H PRN PRN Reason: Shortness Of Breath/wheezing Bisacodyl (Dulcolax) 5 mg PO DAILY PRN PRN Reason: Constipation Chlordiazepoxide HCl (Librium) 25 mg PO Q8H PRN PRN Reason: Withdrawal Symptoms Clonidine HCl (Catapres) 0.1 mg PO Q4H PRN PRN Reason: Agitation Dextrose/Water (Dextrose 50% In Water) 50 ml IVPUSH ASDIRECTED PRN PRN Reason: Hypoglycemia Last Admin: 05/28/18 23:08 Dose: 25 ml Docusate Sodium (Colace) 100 mg PO BID PRN PRN Reason: Constipation Enoxaparin Sodium (Lovenox) 40 mg SUBCUT DAILY MAGO Last Admin: 05/31/18 08:17 Dose: 40 mg Hydralazine HCl (Apresoline) 20 mg IVPUSH Q4H PRN PRN Reason: Hypertension Last Admin: 05/31/18 15:23 Dose: 20 mg Hydromorphone HCl (Dilaudid) 0.25 mg IVPUSH Q2H PRN PRN Reason: Pain (severe 7-10) Promethazine HCl 6.25 mg/ (Sodium Chloride) 50.25 mls @ 100 mls/hr IV Q6H PRN PRN Reason: Nausea/Vomiting Dextrose/Sodium Chloride (Dextrose 5%-Normal Saline) 1,000 mls @ 100 mls/hr IV ASDIRECTED MAGO Last Admin: 05/31/18 21:29 Dose: 100 mls/hr Sodium Chloride (Normal Saline) 500 mls @ 999 mls/hr IV .BOLUS ONE Stop: 06/01/18 08:07 Insulin Human Lispro (Humalog) 0 unit SUBCUT Q6HR MAGO; Protocol Last Admin: 06/01/18 06:46 Dose: 8 units Lorazepam (Ativan) 2 mg IVPUSH Q4H PRN PRN Reason: Seizures Lorazepam (Ativan) 0 mg IV Q4H PRN; Protocol PRN Reason: Withdrawal Symptoms Last Admin: 06/01/18 00:16 Dose: 1 mg Lorazepam (Ativan) 0 mg IV ASDIRECTED MAGO; Protocol Last Admin: 05/29/18 18:25 Dose: 2 mg Magnesium Sulfate (Pharmacy To Dose - Magnesium Replacement) 0 dose .XX ASDIRECTED PRN PRN Reason: RX TO WATCH MAG Metoprolol Tartrate (Lopressor) 5 mg IVPUSH Q4H PRN PRN Reason: Tachycardia Last Admin: 05/31/18 22:44 Dose: 5 mg Ondansetron HCl (Zofran) 4 mg IV Q6H PRN PRN Reason: Nausea/Vomiting Pantoprazole Sodium (Protonix Iv) 40 mg IVPUSH Q12H [facility] Last Admin: 06/01/18 02:27 Dose: 40 mg Potassium Chloride (Pharmacy To Dose - Potassium Replacement) 0 dose .XX ASDIRECTED PRN PRN Reason: RX TO WATCH K Senna/Docusate Sodium (Senna Plus) 1 tab PO BID PRN PRN Reason: Constipation Sodium Chloride (Sodium Chloride 0.9%) 3 ml INH ASDIRECTED PRN PRN Reason: mix with racepinephrine neb Temazepam (Restoril) 7.5 mg PO BEDTIME PRN PRN Reason: Sleep Discontinued Medications Clonidine HCl (Catapres-Tts 3) 0.3 mg TRDERM Q7D ONE Stop: 05/27/18 09:01 Last Admin: 05/27/18 09:59 Dose: Not Given Dextrose/Water (Dextrose 50% In Water) Confirm Administered Dose 50 ml .ROUTE .STK-MED ONE Stop: 05/27/18 06:23 Last Admin: 05/27/18 14:53 Dose: Not Given Dextrose/Water (Dextrose 50% In Water) Confirm Administered Dose 50 ml .ROUTE .STK-MED ONE Stop: 05/27/18 13:07 Last Admin: 05/27/18 13:12 Dose: Not Given Dextrose/Water (Dextrose 50% In Water) 50 ml IVPUSH ASDIRECTED PRN PRN Reason: Hypoglycemia Diazepam (Valium) 3 mg IV ONETIME ONE Stop: 05/30/18 08:04 Last Admin: 05/30/18 08:16 Dose: 3 mg Haloperidol Lactate (Haldol) Confirm Administered Dose 5 mg .ROUTE .STK-MED ONE Stop: 05/29/18 14:01 Last Admin: 05/29/18 14:50 Dose: Not Given Haloperidol Lactate (Haldol) 2 mg IVPUSH ONETIME ONE Stop: 05/29/18 14:01 Last Admin: 05/29/18 14:00 Dose: 2 mg Haloperidol Lactate (Haldol) 1 mg IVPUSH ONETIME ONE Stop: 05/29/18 14:21 Last Admin: 05/29/18 14:57 Dose: 1 mg Dextrose/Sodium Chloride (Dextrose 5%-Normal Saline) Confirm Administered Dose 1 ,000 mls @ as directed .ROUTE .[facility] ONE Stop: 05/27/18 05:55 Last Admin: 05/27/18 14:53 Dose: Not Given Propofol (Diprivan 100 Ml) Confirm Administered Dose 100 mls @ as directed .ROUTE .[facility] ONE Stop: 05/27/18 06:16 Last Admin: 05/27/18 14:53 Dose: Not Given Dextrose/Sodium Chloride (Dextrose 5%-Normal Saline) Confirm Administered Dose 1 ,000 mls @ as directed .ROUTE .[facility] ONE Stop: 05/27/18 07:00 Last Admin: 05/27/18 14:53 Dose: Not Given Propofol (Diprivan 100 Ml) Confirm Administered Dose 100 mls @ as directed .ROUTE .[facility] ONE Stop: 05/27/18 08:21 Last Admin: 05/27/18 10:33 Dose: Not Given Ampicillin Sodium/Sulbactam (Sodium 3 gm/ Sodium Chloride) 100 mls @ 200 mls/ hr IV Q6H [facility] Last Admin: 05/28/18 18:58 Dose: 200 mls/hr Ceftriaxone Sodium 1 gm/ (Sodium Chloride) 100 mls @ 200 mls/hr IV Q24H [facility] Last Admin: 05/27/18 14:54 Dose: Not Given Magnesium Sulfate 2 gm/ Premix 50 mls @ 25 mls/hr IV ONETIME ONE Stop: 05/27/18 11:14 Last Admin: 05/27/18 10:30 Dose: 25 mls/hr Propofol (Diprivan 100 Ml) 100 mls @ 0.9 mls/hr IV TITRATE MAGO; Protocol Last Titration: 05/28/18 13:15 Dose: 0 mcg/kg/min, 0 mls/hr Dextrose/Sodium Chloride (Dextrose 5%-Normal Saline) 1,000 mls @ 125 mls/hr IV ASDIRECTED MAGO Last Infusion: 05/27/18 14:55 Dose: 200 mls/hr Dextrose/Sodium Chloride (Dextrose 5%-Normal Saline) Confirm Administered Dose 1 ,000 mls @ as directed .ROUTE .[facility] ONE Stop: 05/27/18 12:33 Last Admin: 05/27/18 13:05 Dose: Not Given Dextrose/Sodium Chloride (Dextrose 5%-Normal Saline) 1,000 mls @ 150 mls/hr IV ASDIRECTED MAGO Dextrose/Sodium Chloride (Dextrose 5%-Normal Saline) 1,000 mls @ 200 mls/hr IV ASDIRECTED MAGO Dextrose/Water (Dextrose 10% In Water) 500 mls @ 150 mls/hr IV ASDIRECTED MAGO Last Infusion: 05/27/18 19:10 Dose: 200 mls/hr Dextrose/Water (Dextrose 10% In Water) 1,000 mls @ 300 mls/hr IV ASDIRECTED MAGO Last Admin: 05/28/18 00:03 Dose: 300 mls/hr Potassium Chloride (Kcl 10 Meq In Water 100 Ml) 100 mls @ 100 mls/hr IV Q1H MAGO Stop: 05/28/18 03:59 Last Admin: 05/28/18 04:03 Dose: 100 mls/hr Magnesium Sulfate (Magnesium Sulfate 2 Gm In Water 50 Ml) 50 mls @ 25 mls/hr IV ONETIME ONE Stop: 05/28/18 00:14 Last Admin: 05/27/18 23:16 Dose: 25 mls/hr Dextrose/Water (Dextrose 10% In Water) 500 mls @ 300 mls/hr IV ASDIRECTED MAGO Last Admin: 05/29/18 13:26 Dose: 300 mls/hr Magnesium Sulfate 4 gm/ Premix 100 mls @ 25 mls/hr IV ONETIME ONE Stop: 05/28/18 13:59 Last Admin: 05/28/18 10:54 Dose: 25 mls/hr Magnesium Sulfate 4 gm/ Premix 100 mls @ 25 mls/hr IV ONETIME ONE Stop: 05/29/18 15:59 Last Admin: 05/29/18 11:01 Dose: 25 mls/hr Potassium Chloride 10 meq/ (Premix) 100 mls @ 100 mls/hr IV Q1H MAGO Stop: 05/29/18 15:59 Last Admin: 05/29/18 14:50 Dose: 100 mls/hr Thiamine HCl 100 mg/ Sodium (Chloride) 51 mls @ 100 mls/hr IV DAILY MAGO Stop: 05/31/18 09:31 Dextrose/Water (Dextrose 10% In Water) 1,000 mls @ 150 mls/hr IV ASDIRECTED MAGO Last Infusion: 05/30/18 18:31 Dose: 100 mls/hr Magnesium Sulfate 4 gm/ Premix 100 mls @ 25 mls/hr IV ONETIME ONE Stop: 05/30/18 11:59 Last Admin: 05/30/18 09:26 Dose: 25 mls/hr Dextrose/Water (Dextrose 10% In Water) 1,000 mls @ 100 mls/hr IV ASDIRECTED [facility] Last Infusion: 05/31/18 07:30 Dose: 75 mls/hr Insulin Human Lispro (Humalog) 0 unit SUBCUT Q6H MAGO; Protocol Last Admin: 05/31/18 07:34 Dose: Not Given Lorazepam (Ativan) 1 mg IV Q6H PRN PRN Reason: Anxiety Last Admin: 05/29/18 13:50 Dose: 1 mg Lorazepam (Ativan) 1 mg IVPUSH ONETIME ONE Stop: 05/29/18 14:11 Last Admin: 05/29/18 14:10 Dose: 1 mg Midazolam HCl (Versed 5 Mg/Ml) 50 mg .ROUTE .STK-MED ONE Stop: 05/27/18 05:51 Midazolam HCl (Versed 1 Mg/Ml) 10 mg .ROUTE .STK-MED ONE Stop: 05/27/18 05:51 Modafinil (Provigil) 200 mg PO NOW STA Stop: 05/28/18 13:29 Last Admin: 05/28/18 13:44 Dose: 200 mg Modafinil (Provigil) 200 mg PO DAILY MAGO Stop: 05/29/18 08:01 Last Admin: 05/29/18 08:40 Dose: Not Given Racepinephrine (S-2 2.25%) 0.5 ml NEB ONETIME ONE Stop: 05/28/18 13:24 Last Admin: 05/28/18 13:33 Dose: 0.5 ml Racepinephrine (S-2 2.25%) Confirm Administered Dose 0.5 ml .ROUTE .STK-MED ONE Stop: 05/28/18 13:27 Last Admin: 05/28/18 13:33 Dose: Not Given Saccharomyces Boulardii (Florastor) 250 mg PO BID MAGO Stop: 05/30/18 09:01 Last Admin: 05/30/18 09:26 Dose: Not Given Succinylcholine Chloride (Quelicin) 200 mg .ROUTE .STK-MED ONE Stop: 05/27/18 05:51 Thiamine HCl (Vitamin B-1) 100 mg IV ONETIME ONE Stop: 05/29/18 07:46 Last Admin: 05/29/18 08:38 Dose: 100 mg Thiamine HCl (Vitamin B-1) 100 mg IVPUSH DAILY MAGO Stop: 05/31/18 09:01 Last Admin: 05/31/18 08:18 Dose: 100 mg Vecuronium Effort (Vecuronium) 10 mg .ROUTE .STK-MED ONE Stop: 05/27/18 05:51 - Exam General: No Acute Distress, Other (Comfortable in bed non-verabl and does not follow commands) HEENT: Pupils Equal, Pupils Reactive, Other Neck: Supple Lungs: Clear to Auscultation, Normal Respiratory Effort Cardiovascular: Regular Rate, Regular Rhythm GI/Abdominal Exam: Normal Bowel Sounds, Soft, Non-Tender, No Organomegaly, No Distention, No Abnormal Bruit (Female) Exam: Deferred Back Exam: Normal Inspection Extremities: Normal Inspection, Non-Tender, No Pedal Edema, Normal Capillary Refill Peripheral Pulses: 2+: Dorsalis Pedis (L), Dorsalis Pedis (R) Skin: Warm, Dry, Intact Neurological: Other Psy/Mental Status: No: Normal Affect - Problem List Review Problem List Initiated/Reviewed/Updated: Yes - My Orders Last 24 Hours: My Active Orders 05/31/18 07:30 Insulin Lispro [HumaLOG] 0 unit SUBCUT Q6HR 05/31/18 11:45 Dextrose 5%-0.9% NaCl [Dextrose 5%-Normal Saline] 1,000 ml IV ASDIRECTED 06/01/18 04:00 Bladder Scan [RC] ASDIRECTED 06/01/18 06:40 CBC WITH AUTO DIFF [HEME] AM 06/01/18 07:37 Sodium Chloride 0.9% [Normal Saline] 500 ml IV .BOLUS 06/02/18 05:11 BASIC METABOLIC PANEL,BMP [CHEM] AM C-REACTIVE PROTEIN [CHEM] AM CBC WITH AUTO DIFF [HEME] AM MAGNESIUM [CHEM] AM - Plan Plan:: Assessment/Plan: Acute: Anoxic Brain Injury - She appears to be in a semi-vegetative state - She was out for unknown duration; deprived of glucose and +/- O2 plus she was also intoxicated - Severity unclear at this point; only time will tell - Unable to perform neuro exam due to inability to follow simple commands - Brain MRI report reads nothing acute is appreciated - EEG completed with pending report - Spoke to Dr. Connolly on-call Neurologist in [facility] and discussed case with him. He recommends to wait a few more days; if she does not recover cognitively then we would address nutritional status and possibly group home rather than stroker rehab Permissive Hyperglycemia - BS fluctuates in the 200s-300s - She is unable to take food orally due to AMS; offered food but stares at it - Continue D5W 0.9NS but at 75cchr - Continue Low dose ISS Hypomagnesemia - Mg 1.6 - 2/2 NPO status - Replete and monitor Mild Renal Insufficiency - 2/2 NPO status - Bolus 500 ml of NS x1 Malnutrition/Nutritional Status - Has been NPO since admission - Consulted Dr. Melo for placement Resolved: S/p Respiratory Failure w/ Possible Associated Aspiration - 2/2 AMS and Not able to Protect her Airway - ABG shows pH of 7.19, pCO2 of 58.7, pO2 of 81, HCO3 of 21.7, O2 Sat of 91.8 on Vent; her repeat ABG looks good plan for extubation after morning rounds today - Initial Vent Setting: AC 500/VT, 16/RR, 5/PEEP on 80% FiO2; now AC 500/12/5 /30% - IV Unasyn for Aspiration Syndrome coverage - Sedation vacation with plan for extubation S/p Severe Hypoglycemia - Iatrogenic from significant amount of insulin she took - Hypoglycemia protocol plus on dextrose IV fluids - Continue routine accu-check S/p Positive Troponin W/ Prolonged QT - Likely 2/2 Demand Ischemia - Malignant Hypertensive on presentation - CKMB is negative - Serial EKGs and will continue to monitor S/p Malignant HTN - Carries a hx/o HTN - Documented BP of 203/132 and 148/102 mmHg - Now improved - Resume home BP meds along with PRN anti-hypertensive agents S/p Suicide Attempt via OD of Insulin - Carries a hx/o it in the past - Took for pens of [place] insulin - She has received dextrose en route and while in ED - She is currently on D5W for maintenance; will continue it - Accu-check Q1H and may change to [id number] as needed - 1:1 care once off vent - Tele-psych and SAC consult when appropriate Chronic: Impaired Vision HTN Asthma GERD Hx/o Pancreatitis Fibroids OA/DJD Hx/o Suicide Attempt Depression DM1 and MANOJ Plan: She is essentially the same Aspiration Precaution Accu-check Q6H Continue IV Thiamine DVT/GI PPx: Lovenox SQ/PPI Continue routine Accu-check w/ hypoglycemia protocol SW/CM for d/c planning for possible NS vs stroke rehab placement Code status: 1 LOS > 96 hrs due to pending NH placement and the need for possible PEG tube placement
[2018-06-01] MEDS: Dextrose 5%-0.9% NaCl 1,000 ML IV SCH (09:07)
[2018-06-01] MEDS: Enoxaparin 40 MG/0.4 ML Syringe SUBCUT SCH (09:10)
[2018-06-01] MEDS ORDERED: Magnesium Sulfate/Water 4 GM in Premix Bag 1 BAG IV ONE (10:30)
[2018-06-01] MEDS: LORazepam 2 MG/ML SDV IV SCH ×2 (16:00→18:02)
[2018-06-01] MEDS: hydrALAZINE 20 MG/ML SDV IVPUSH PRN (18:19)
[2018-06-01] MEDS: Dextrose 5%-0.9% NaCl with KCl 1,000 ML IV SCH (21:35)
[2018-06-02] MEDS: Pantoprazole 40 MG Vial IVPUSH SCH ×2 (03:43→14:18)
[2018-06-02] MEDS: Insulin Lispro 100 UNIT/ML 10 ML VIAL SUBCUT SCH ×3 (05:28→17:31)
--- NOTE | 2018-06-02 08:03 | PCM.PN ---
- General Info Date of Service: 06/02/18 Admission Dx/Problem (Free Text): Admission Diagnosis/Problem Admission Diagnosis/Problem Intentional overdose of drug by injectable substance Subjective Update: Follow Up Functional Status: Reports: Pain Controlled, Urinating. Denies: New Symptoms - Patient Data Vitals - Most Recent: Last Vital Signs Temp 37.1 C 06/02/18 03:33 Pulse 103 H 06/02/18 03:33 Resp 17 06/02/18 03:33 BP 132/49 L 06/02/18 03:33 Pulse Ox 97 06/02/18 03:33 Weight - Most Recent: 86.319 kg I&O - Last 24 Hours: Intake & Output 06/01/18 06/02/18 06/02/18 22:59 06:59 14:59 Intake Total 1200 900 Balance 1200 900 Lab Results Last 24 Hours: Laboratory Results - last 24 hr 06/01/18 06/01/18 06/01/18 Range/Units 06:40 11:52 17:11 WBC (3.98-10.04) K/mm3 RBC (3.98-5.22) M/mm3 Hgb (11.2-15.7) gm/L Hct (34.1-44.9) % MCV (79.4-94.8) fl MCH (25.6-32.2) pg MCHC (32.2-35.5) g/dl RDW Std Deviation (36.4-46.3) fL Plt Count (182-369) K/mm3 MPV (9.4-12.3) fl Neut % (Auto) (34.0-71.1) % Lymph % (Auto) (19.3-51.7) % [place] % (Auto) (4.7-12.5) % Eos % (Auto) (0.7-5.8) Baso % (Auto) (0.1-1.2) % Neut # (Auto) (1.56-6.13) K/mm3 Lymph # (Auto) (1.18-3.74) K/mm3 [place] # (Auto) (0.24-0.36) K/mm3 Eos # (Auto) (0.04-0.36) K/mm3 Baso # (Auto) (0.01-0.08) K/mm3 Manual Slide Review Abnormal smear Sodium (136-145) mEq/L Potassium (3.5-5.1) mEq/L Chloride (98-107) mEq/L Carbon Dioxide (21-32) mEq/L Anion Gap (5-15) BUN (7-18) mg/dL Creatinine (0.55-1.02) mg/dL Est Cr Clr Drug Dosing mL/min Estimated GFR (MDRD) (>60) mL/min BUN/Creatinine Ratio (14-18) Glucose (74-106) mg/dL POC Glucose 147 H 265 H (70-105) mg/dL Calcium (8.5-10.1) mg/dL Magnesium (1.8-2.4) mg/dl C-Reactive Protein (<1.0) mg/dL 06/01/18 06/02/18 06/02/18 Range/Units 23:13 05:19 06:05 WBC 2.64 L (3.98-10.04) K/mm3 RBC 2.53 L (3.98-5.22) M/mm3 Hgb 9.1 L (11.2-15.7) gm/L Hct 27.0 L (34.1-44.9) % MCV 106.7 H (79.4-94.8) fl MCH 36.0 H (25.6-32.2) pg MCHC 33.7 (32.2-35.5) g/dl RDW Std Deviation 45.4 (36.4-46.3) fL Plt Count 121 L (182-369) K/mm3 MPV 10.1 (9.4-12.3) fl Neut % (Auto) 47.2 (34.0-71.1) % Lymph % (Auto) 36.4 (19.3-51.7) % [place] % (Auto) 12.9 H (4.7-12.5) % Eos % (Auto) 2.7 (0.7-5.8) Baso % (Auto) 0.4 (0.1-1.2) % Neut # (Auto) 1.25 L (1.56-6.13) K/mm3 Lymph # (Auto) 0.96 L (1.18-3.74) K/mm3 [place] # (Auto) 0.34 (0.24-0.36) K/mm3 Eos # (Auto) 0.07 (0.04-0.36) K/mm3 Baso # (Auto) 0.01 (0.01-0.08) K/mm3 Manual Slide Review Abnormal smear Sodium (136-145) mEq/L Potassium (3.5-5.1) mEq/L Chloride (98-107) mEq/L Carbon Dioxide (21-32) mEq/L Anion Gap (5-15) BUN (7-18) mg/dL Creatinine (0.55-1.02) mg/dL Est Cr Clr Drug Dosing mL/min Estimated GFR (MDRD) (>60) mL/min BUN/Creatinine Ratio (14-18) Glucose (74-106) mg/dL POC Glucose 217 H 246 H (70-105) mg/dL Calcium (8.5-10.1) mg/dL Magnesium (1.8-2.4) mg/dl C-Reactive Protein (<1.0) mg/dL 06/02/18 Range/Units 06:05 WBC (3.98-10.04) K/mm3 RBC (3.98-5.22) M/mm3 Hgb (11.2-15.7) gm/L Hct (34.1-44.9) % MCV (79.4-94.8) fl MCH (25.6-32.2) pg MCHC (32.2-35.5) g/dl RDW Std Deviation (36.4-46.3) fL Plt Count (182-369) K/mm3 MPV (9.4-12.3) fl Neut % (Auto) (34.0-71.1) % Lymph % (Auto) (19.3-51.7) % [place] % (Auto) (4.7-12.5) % Eos % (Auto) (0.7-5.8) Baso % (Auto) (0.1-1.2) % Neut # (Auto) (1.56-6.13) K/mm3 Lymph # (Auto) (1.18-3.74) K/mm3 [place] # (Auto) (0.24-0.36) K/mm3 Eos # (Auto) (0.04-0.36) K/mm3 Baso # (Auto) (0.01-0.08) K/mm3 Manual Slide Review Sodium 140 (136-145) mEq/L Potassium 3.8 (3.5-5.1) mEq/L Chloride 108 H (98-107) mEq/L Carbon Dioxide 21 (21-32) mEq/L Anion Gap 14.8 (5-15) BUN 10 (7-18) mg/dL Creatinine 1.0 (0.55-1.02) mg/dL Est Cr Clr Drug Dosing 69.55 mL/min Estimated GFR (MDRD) 58 (>60) mL/min BUN/Creatinine Ratio 10.0 L (14-18) Glucose 232 H (74-106) mg/dL POC Glucose (70-105) mg/dL Calcium 7.9 L (8.5-10.1) mg/dL Magnesium 1.8 (1.8-2.4) mg/dl C-Reactive Protein < 0.2 (<1.0) mg/dL Med Orders - Current: Current Medications Acetaminophen (Tylenol) 650 mg PO Q4H PRN PRN Reason: Pain (Mild 1-3)/fever Hydrocodone Bitart/Acetaminophen (Vinson 325-5 Mg) 1 tab PO Q4H PRN PRN Reason: Pain (moderate 4-6) Albuterol/Ipratropium (Duoneb 3.0-0.5 Mg/3 Ml) 3 ml NEB Q4H PRN PRN Reason: Shortness Of Breath/wheezing Bisacodyl (Dulcolax) 5 mg PO DAILY PRN PRN Reason: Constipation Dextrose/Water (Dextrose 50% In Water) 50 ml IVPUSH ASDIRECTED PRN PRN Reason: Hypoglycemia Last Admin: 05/28/18 23:08 Dose: 25 ml Docusate Sodium (Colace) 100 mg PO BID PRN PRN Reason: Constipation Enoxaparin Sodium (Lovenox) 40 mg SUBCUT DAILY MAGO Last Admin: 06/01/18 09:10 Dose: 40 mg Hydralazine HCl (Apresoline) 20 mg IVPUSH Q4H PRN PRN Reason: Hypertension Last Admin: 06/01/18 18:19 Dose: 20 mg Hydromorphone HCl (Dilaudid) 0.25 mg IVPUSH Q2H PRN PRN Reason: Pain (severe 7-10) Promethazine HCl 6.25 mg/ (Sodium Chloride) 50.25 mls @ 100 mls/hr IV Q6H PRN PRN Reason: Nausea/Vomiting Potassium Chloride/Dextrose/Sod Cl (D5 Ns With 20 Meq Kcl) 1,000 mls @ 75 mls/ hr IV ASDIRECTED MAGO Last Admin: 06/01/18 21:35 Dose: 75 mls/hr Insulin Human Lispro (Humalog) 0 unit SUBCUT Q6HR [facility]; Protocol Last Admin: 06/02/18 05:28 Dose: 4 units Lorazepam (Ativan) 2 mg IVPUSH Q4H PRN PRN Reason: Seizures Lorazepam (Ativan) 0.5 mg IVPUSH Q4H PRN PRN Reason: Anxiety Magnesium Sulfate (Pharmacy To Dose - Magnesium Replacement) 0 dose .XX ASDIRECTED PRN PRN Reason: RX TO WATCH MAG Metoprolol Tartrate (Lopressor) 5 mg IVPUSH Q4H PRN PRN Reason: Tachycardia Last Admin: 05/31/18 22:44 Dose: 5 mg Ondansetron HCl (Zofran) 4 mg IV Q6H PRN PRN Reason: Nausea/Vomiting Pantoprazole Sodium (Protonix Iv) 40 mg IVPUSH Q12H [facility] Last Admin: 06/02/18 03:43 Dose: 40 mg Potassium Chloride (Pharmacy To Dose - Potassium Replacement) 0 dose .XX ASDIRECTED PRN PRN Reason: RX TO WATCH K Senna/Docusate Sodium (Senna Plus) 1 tab PO BID PRN PRN Reason: Constipation Sodium Chloride (Sodium Chloride 0.9%) 3 ml INH ASDIRECTED PRN PRN Reason: mix with racepinephrine neb Discontinued Medications Chlordiazepoxide HCl (Librium) 25 mg PO Q8H PRN PRN Reason: Withdrawal Symptoms Clonidine HCl (Catapres-Tts 3) 0.3 mg TRDERM Q7D ONE Stop: 05/27/18 09:01 Last Admin: 05/27/18 09:59 Dose: Not Given Clonidine HCl (Catapres) 0.1 mg PO Q4H PRN PRN Reason: Agitation Dextrose/Water (Dextrose 50% In Water) Confirm Administered Dose 50 ml .ROUTE .STK-MED ONE Stop: 05/27/18 06:23 Last Admin: 05/27/18 14:53 Dose: Not Given Dextrose/Water (Dextrose 50% In Water) Confirm Administered Dose 50 ml .ROUTE .STK-MED ONE Stop: 05/27/18 13:07 Last Admin: 05/27/18 13:12 Dose: Not Given Dextrose/Water (Dextrose 50% In Water) 50 ml IVPUSH ASDIRECTED PRN PRN Reason: Hypoglycemia Diazepam (Valium) 3 mg IV ONETIME ONE Stop: 05/30/18 08:04 Last Admin: 05/30/18 08:16 Dose: 3 mg Haloperidol Lactate (Haldol) Confirm Administered Dose 5 mg .ROUTE .STK-MED ONE Stop: 05/29/18 14:01 Last Admin: 05/29/18 14:50 Dose: Not Given Haloperidol Lactate (Haldol) 2 mg IVPUSH ONETIME ONE Stop: 05/29/18 14:01 Last Admin: 05/29/18 14:00 Dose: 2 mg Haloperidol Lactate (Haldol) 1 mg IVPUSH ONETIME ONE Stop: 05/29/18 14:21 Last Admin: 05/29/18 14:57 Dose: 1 mg Dextrose/Sodium Chloride (Dextrose 5%-Normal Saline) Confirm Administered Dose 1 ,000 mls @ as directed .ROUTE .ST-MED ONE Stop: 05/27/18 05:55 Last Admin: 05/27/18 14:53 Dose: Not Given Propofol (Diprivan 100 Ml) Confirm Administered Dose 100 mls @ as directed .ROUTE .STK-MED ONE Stop: 05/27/18 06:16 Last Admin: 05/27/18 14:53 Dose: Not Given Dextrose/Sodium Chloride (Dextrose 5%-Normal Saline) Confirm Administered Dose 1 ,000 mls @ as directed .ROUTE .STK-MED ONE Stop: 05/27/18 07:00 Last Admin: 05/27/18 14:53 Dose: Not Given Propofol (Diprivan 100 Ml) Confirm Administered Dose 100 mls @ as directed .ROUTE .STK-MED ONE Stop: 05/27/18 08:21 Last Admin: 05/27/18 10:33 Dose: Not Given Ampicillin Sodium/Sulbactam (Sodium 3 gm/ Sodium Chloride) 100 mls @ 200 mls/ hr IV Q6H MAGO Last Admin: 05/28/18 18:58 Dose: 200 mls/hr Ceftriaxone Sodium 1 gm/ (Sodium Chloride) 100 mls @ 200 mls/hr IV Q24H MAGO Last Admin: 05/27/18 14:54 Dose: Not Given Magnesium Sulfate 2 gm/ Premix 50 mls @ 25 mls/hr IV ONETIME ONE Stop: 05/27/18 11:14 Last Admin: 05/27/18 10:30 Dose: 25 mls/hr Propofol (Diprivan 100 Ml) 100 mls @ 0.9 mls/hr IV TITRATE MAGO; Protocol Last Titration: 05/28/18 13:15 Dose: 0 mcg/kg/min, 0 mls/hr Dextrose/Sodium Chloride (Dextrose 5%-Normal Saline) 1,000 mls @ 125 mls/hr IV ASDIRECTED MAGO Last Infusion: 05/27/18 14:55 Dose: 200 mls/hr Dextrose/Sodium Chloride (Dextrose 5%-Normal Saline) Confirm Administered Dose 1 ,000 mls @ as directed .ROUTE .K-MED ONE Stop: 05/27/18 12:33 Last Admin: 05/27/18 13:05 Dose: Not Given Dextrose/Sodium Chloride (Dextrose 5%-Normal Saline) 1,000 mls @ 150 mls/hr IV ASDIRECTED MAGO Dextrose/Sodium Chloride (Dextrose 5%-Normal Saline) 1,000 mls @ 200 mls/hr IV ASDIRECTED MAGO Dextrose/Water (Dextrose 10% In Water) 500 mls @ 150 mls/hr IV ASDIRECTED MAGO Last Infusion: 05/27/18 19:10 Dose: 200 mls/hr Dextrose/Water (Dextrose 10% In Water) 1,000 mls @ 300 mls/hr IV ASDIRECTED MAGO Last Admin: 05/28/18 00:03 Dose: 300 mls/hr Potassium Chloride (Kcl 10 Meq In Water 100 Ml) 100 mls @ 100 mls/hr IV Q1H MAGO Stop: 05/28/18 03:59 Last Admin: 05/28/18 04:03 Dose: 100 mls/hr Magnesium Sulfate (Magnesium Sulfate 2 Gm In Water 50 Ml) 50 mls @ 25 mls/hr IV ONETIME ONE Stop: 05/28/18 00:14 Last Admin: 05/27/18 23:16 Dose: 25 mls/hr Dextrose/Water (Dextrose 10% In Water) 500 mls @ 300 mls/hr IV ASDIRECTED MAGO Last Admin: 05/29/18 13:26 Dose: 300 mls/hr Magnesium Sulfate 4 gm/ Premix 100 mls @ 25 mls/hr IV ONETIME ONE Stop: 05/28/18 13:59 Last Admin: 05/28/18 10:54 Dose: 25 mls/hr Magnesium Sulfate 4 gm/ Premix 100 mls @ 25 mls/hr IV ONETIME ONE Stop: 05/29/18 15:59 Last Admin: 05/29/18 11:01 Dose: 25 mls/hr Potassium Chloride 10 meq/ (Premix) 100 mls @ 100 mls/hr IV Q1H MAGO Stop: 05/29/18 15:59 Last Admin: 05/29/18 14:50 Dose: 100 mls/hr Thiamine HCl 100 mg/ Sodium (Chloride) 51 mls @ 100 mls/hr IV DAILY MAGO Stop: 05/31/18 09:31 Dextrose/Water (Dextrose 10% In Water) 1,000 mls @ 150 mls/hr IV ASDIRECTED [facility] Last Infusion: 05/30/18 18:31 Dose: 100 mls/hr Magnesium Sulfate 4 gm/ Premix 100 mls @ 25 mls/hr IV ONETIME ONE Stop: 05/30/18 11:59 Last Admin: 05/30/18 09:26 Dose: 25 mls/hr Dextrose/Water (Dextrose 10% In Water) 1,000 mls @ 100 mls/hr IV ASDIRECTED [facility] Last Infusion: 05/31/18 07:30 Dose: 75 mls/hr Dextrose/Sodium Chloride (Dextrose 5%-Normal Saline) 1,000 mls @ 100 mls/hr IV ASDIRECTED [facility] Last Admin: 06/01/18 09:07 Dose: 100 mls/hr Sodium Chloride (Normal Saline) 500 mls @ 999 mls/hr IV .BOLUS ONE Stop: 06/01/18 08:07 Last Admin: 06/01/18 08:14 Dose: 999 mls/hr Magnesium Sulfate 4 gm/ Premix 100 mls @ 25 mls/hr IV ONETIME ONE Stop: 06/01/18 14:29 Last Admin: 06/01/18 11:40 Dose: 25 mls/hr Insulin Human Lispro (Humalog) 0 unit SUBCUT Q6H [facility]O; Protocol Last Admin: 05/31/18 07:34 Dose: Not Given Lorazepam (Ativan) 1 mg IV Q6H PRN PRN Reason: Anxiety Last Admin: 05/29/18 13:50 Dose: 1 mg Lorazepam (Ativan) 1 mg IVPUSH ONETIME ONE Stop: 05/29/18 14:11 Last Admin: 05/29/18 14:10 Dose: 1 mg Lorazepam (Ativan) 0 mg IV Q4H PRN; Protocol PRN Reason: Withdrawal Symptoms Last Admin: 06/01/18 00:16 Dose: 1 mg Lorazepam (Ativan) 0 mg IV ASDIRECTED MAGO; Protocol Last Admin: 06/01/18 18:02 Dose: 1 mg Midazolam HCl (Versed 5 Mg/Ml) 50 mg .ROUTE .STK-MED ONE Stop: 05/27/18 05:51 Midazolam HCl (Versed 1 Mg/Ml) 10 mg .ROUTE .STK-MED ONE Stop: 05/27/18 05:51 Modafinil (Provigil) 200 mg PO NOW STA Stop: 05/28/18 13:29 Last Admin: 05/28/18 13:44 Dose: 200 mg Modafinil (Provigil) 200 mg PO DAILY MAGO Stop: 05/29/18 08:01 Last Admin: 05/29/18 08:40 Dose: Not Given Racepinephrine (S-2 2.25%) 0.5 ml NEB ONETIME ONE Stop: 05/28/18 13:24 Last Admin: 05/28/18 13:33 Dose: 0.5 ml Racepinephrine (S-2 2.25%) Confirm Administered Dose 0.5 ml .ROUTE .STK-MED ONE Stop: 05/28/18 13:27 Last Admin: 05/28/18 13:33 Dose: Not Given Saccharomyces Boulardii (Florastor) 250 mg PO BID MAGO Stop: 05/30/18 09:01 Last Admin: 05/30/18 09:26 Dose: Not Given Succinylcholine Chloride (Quelicin) 200 mg .ROUTE .STK-MED ONE Stop: 05/27/18 05:51 Temazepam (Restoril) 7.5 mg PO BEDTIME PRN PRN Reason: Sleep Thiamine HCl (Vitamin B-1) 100 mg IV ONETIME ONE Stop: 05/29/18 07:46 Last Admin: 05/29/18 08:38 Dose: 100 mg Thiamine HCl (Vitamin B-1) 100 mg IVPUSH DAILY MAGO Stop: 05/31/18 09:01 Last Admin: 05/31/18 08:18 Dose: 100 mg Vecuronium [place] (Vecuronium) 10 mg .ROUTE .STK-MED ONE Stop: 05/27/18 05:51 - My Orders Last 24 Hours: My Active Orders 06/01/18 12:02 Consult to Physician [CONS] Routine 06/01/18 12:04 Notify Provider Consults [RC] ASDIRECTED 06/01/18 12:15 Dextrose 5%-0.9% NaCl with KCl [D5 NS with 20 mEq KCl] 1,000 ml IV ASDIRECTED 06/02/18 08:02 LORazepam [Ativan] 0.5 mg IVPUSH Q4H PRN - Plan Plan:: Assessment/Plan: Acute: Anoxic Brain Injury - She appears to be in a semi-vegetative state - She was out for unknown duration; deprived of glucose and +/- O2 plus she was also intoxicated - Severity unclear at this point; only time will tell - Unable to perform neuro exam due to inability to follow simple commands - Brain MRI report reads nothing acute is appreciated - EEG completed with pending report - Spoke to Dr. Connolly on-call Neurologist in [facility] and discussed case with him. He recommends to wait a few more days; if she does not recover cognitively then we would address nutritional status and possibly group home rather than stroker rehab Permissive Hyperglycemia - BS fluctuates in the 200s-300s - She is unable to take food orally due to AMS; offered food but stares at it - Continue D5W 0.9NS but at 75cchr - Continue Low dose ISS Hypomagnesemia - Mg 1.6 - 2/2 NPO status - Replete and monitor Mild Renal Insufficiency - 2/2 NPO status - Bolus 500 ml of NS x1 Malnutrition/Nutritional Status - Has been NPO since admission - Consulted Dr. Melo for placement Resolved: S/p Respiratory Failure w/ Possible Associated Aspiration - 2/2 AMS and Not able to Protect her Airway - ABG shows pH of 7.19, pCO2 of 58.7, pO2 of 81, HCO3 of 21.7, O2 Sat of 91.8 on Vent; her repeat ABG looks good plan for extubation after morning rounds today - Initial Vent Setting: AC 500/VT, 16/RR, 5/PEEP on 80% FiO2; now AC 500/12/5 /30% - IV Unasyn for Aspiration Syndrome coverage - Sedation vacation with plan for extubation S/p Severe Hypoglycemia - Iatrogenic from significant amount of insulin she took - Hypoglycemia protocol plus on dextrose IV fluids - Continue routine accu-check S/p Positive Troponin W/ Prolonged QT - Likely 2/2 Demand Ischemia - Malignant Hypertensive on presentation - CKMB is negative - Serial EKGs and will continue to monitor S/p Malignant HTN - Carries a hx/o HTN - Documented BP of 203/132 and 148/102 mmHg - Now improved - Resume home BP meds along with PRN anti-hypertensive agents S/p Suicide Attempt via OD of Insulin - Carries a hx/o it in the past - Took for pens of [place] insulin - She has received dextrose en route and while in ED - She is currently on D5W for maintenance; will continue it - Accu-check Q1H and may change to [id number] as needed - 1:1 care once off vent - Tele-psych and SAC consult when appropriate Chronic: Impaired Vision HTN Asthma GERD Hx/o Pancreatitis Fibroids OA/DJD Hx/o Suicide Attempt Depression DM1 and MANOJ Plan: She is essentially the same Aspiration Precaution Accu-check Q6H Continue IV Thiamine DVT/GI PPx: Lovenox SQ/PPI Continue routine Accu-check w/ hypoglycemia protocol SW/CM for d/c planning for possible NS vs stroke rehab placement Code status: 1 LOS > 96 hrs due to pending NH placement and the need for possible PEG tube placement
[2018-06-02] MEDS: Enoxaparin 40 MG/0.4 ML Syringe SUBCUT SCH (08:25)
--- NOTE | 2018-06-02 09:57 | PCM.PN ---
- General Info Date of Service: 06/02/18 Admission Dx/Problem (Free Text): Admission Diagnosis/Problem Admission Diagnosis/Problem Intentional overdose of drug by injectable substance Subjective Update: In to see Nkechi. She is lying in bed. She does open her eyes when you speak to her and look at you, but then at other times she will close her eyes and not pay attention. She did squeeze my hand on command on left hand but not on right. She also pulled her left foot up on command but not her right. Attempted to see if she would eat a cracker and she would not chain repairer it in her hand. Dr. Melo is consulted for a PEG tube tomorrow for feeding. Otherwise labs continue to be stable. We are awaiting placement. Functional Status: Reports: Urinating, Other (Does not appear to be in any pain) . Denies: Tolerating Diet, Ambulating - Review of Systems General: Denies: Fever Pulmonary: Denies: Cough Cardiovascular: Denies: Edema Gastrointestinal: Denies: Diarrhea, Vomiting Systems Review Comment:: Unable to asses ROS due to patients mental state. - Patient Data Vitals - Most Recent: Last Vital Signs Temp 97.5 F 06/02/18 08:20 Pulse 99 06/02/18 08:23 Resp 16 06/02/18 08:20 BP 159/78 H 06/02/18 08:23 Pulse Ox 98 06/02/18 08:23 Weight - Most Recent: 190 lb 4.8 oz I&O - Last 24 Hours: Intake & Output 06/01/18 06/02/18 06/02/18 22:59 06:59 14:59 Intake Total 1200 900 Balance 1200 900 Lab Results Last 24 Hours: Laboratory Results - last 24 hr 06/01/18 06/01/18 06/01/18 Range/Units 11:52 17:11 23:13 WBC (3.98-10.04) K/mm3 RBC (3.98-5.22) M/mm3 Hgb (11.2-15.7) gm/L Hct (34.1-44.9) % MCV (79.4-94.8) fl MCH (25.6-32.2) pg MCHC (32.2-35.5) g/dl RDW Std Deviation (36.4-46.3) fL Plt Count (182-369) K/mm3 MPV (9.4-12.3) fl Neut % (Auto) (34.0-71.1) % Lymph % (Auto) (19.3-51.7) % Hunt % (Auto) (4.7-12.5) % Eos % (Auto) (0.7-5.8) Baso % (Auto) (0.1-1.2) % Neut # (Auto) (1.56-6.13) K/mm3 Lymph # (Auto) (1.18-3.74) K/mm3 Hunt # (Auto) (0.24-0.36) K/mm3 Eos # (Auto) (0.04-0.36) K/mm3 Baso # (Auto) (0.01-0.08) K/mm3 Manual Slide Review Sodium (136-145) mEq/L Potassium (3.5-5.1) mEq/L Chloride (98-107) mEq/L Carbon Dioxide (21-32) mEq/L Anion Gap (5-15) BUN (7-18) mg/dL Creatinine (0.55-1.02) mg/dL Est Cr Clr Drug Dosing mL/min Estimated GFR (MDRD) (>60) mL/min BUN/Creatinine Ratio (14-18) Glucose (74-106) mg/dL POC Glucose 147 H 265 H 217 H (70-105) mg/dL Calcium (8.5-10.1) mg/dL Magnesium (1.8-2.4) mg/dl C-Reactive Protein (<1.0) mg/dL 06/02/18 06/02/18 06/02/18 Range/Units 05:19 06:05 06:05 WBC 2.64 L (3.98-10.04) K/mm3 RBC 2.53 L (3.98-5.22) M/mm3 Hgb 9.1 L (11.2-15.7) gm/L Hct 27.0 L (34.1-44.9) % MCV 106.7 H (79.4-94.8) fl MCH 36.0 H (25.6-32.2) pg MCHC 33.7 (32.2-35.5) g/dl RDW Std Deviation 45.4 (36.4-46.3) fL Plt Count 121 L (182-369) K/mm3 MPV 10.1 (9.4-12.3) fl Neut % (Auto) 47.2 (34.0-71.1) % Lymph % (Auto) 36.4 (19.3-51.7) % Hunt % (Auto) 12.9 H (4.7-12.5) % Eos % (Auto) 2.7 (0.7-5.8) Baso % (Auto) 0.4 (0.1-1.2) % Neut # (Auto) 1.25 L (1.56-6.13) K/mm3 Lymph # (Auto) 0.96 L (1.18-3.74) K/mm3 Hunt # (Auto) 0.34 (0.24-0.36) K/mm3 Eos # (Auto) 0.07 (0.04-0.36) K/mm3 Baso # (Auto) 0.01 (0.01-0.08) K/mm3 Manual Slide Review Abnormal smear Sodium 140 (136-145) mEq/L Potassium 3.8 (3.5-5.1) mEq/L Chloride 108 H (98-107) mEq/L Carbon Dioxide 21 (21-32) mEq/L Anion Gap 14.8 (5-15) BUN 10 (7-18) mg/dL Creatinine 1.0 (0.55-1.02) mg/dL Est Cr Clr Drug Dosing 69.55 mL/min Estimated GFR (MDRD) 58 (>60) mL/min BUN/Creatinine Ratio 10.0 L (14-18) Glucose 232 H (74-106) mg/dL POC Glucose 246 H (70-105) mg/dL Calcium 7.9 L (8.5-10.1) mg/dL Magnesium 1.8 (1.8-2.4) mg/dl C-Reactive Protein < 0.2 (<1.0) mg/dL Med Orders - Current: Current Medications Acetaminophen (Tylenol) 650 mg PO Q4H PRN PRN Reason: Pain (Mild 1-3)/fever Hydrocodone Bitart/Acetaminophen ([place] 325-5 Mg) 1 tab PO Q4H PRN PRN Reason: Pain (moderate 4-6) Albuterol/Ipratropium (Duoneb 3.0-0.5 Mg/3 Ml) 3 ml NEB Q4H PRN PRN Reason: Shortness Of Breath/wheezing Bisacodyl (Dulcolax) 5 mg PO DAILY PRN PRN Reason: Constipation Dextrose/Water (Dextrose 50% In Water) 50 ml IVPUSH ASDIRECTED PRN PRN Reason: Hypoglycemia Last Admin: 05/28/18 23:08 Dose: 25 ml Docusate Sodium (Colace) 100 mg PO BID PRN PRN Reason: Constipation Enoxaparin Sodium (Lovenox) 40 mg SUBCUT DAILY REPLACED BY [facility] Last Admin: 06/02/18 08:25 Dose: 40 mg Hydralazine HCl (Apresoline) 20 mg IVPUSH Q4H PRN PRN Reason: Hypertension Last Admin: 06/01/18 18:19 Dose: 20 mg Hydromorphone HCl (Dilaudid) 0.25 mg IVPUSH Q2H PRN PRN Reason: Pain (severe 7-10) Promethazine HCl 6.25 mg/ (Sodium Chloride) 50.25 mls @ 100 mls/hr IV Q6H PRN PRN Reason: Nausea/Vomiting Potassium Chloride/Dextrose/Sod Cl (D5 Ns With 20 Meq Kcl) 1,000 mls @ 75 mls/ hr IV ASDIRECTED REPLACED BY [facility] Last Admin: 06/01/18 21:35 Dose: 75 mls/hr Insulin Human Lispro (Humalog) 0 unit SUBCUT Q6HR REPLACED BY [facility]; Protocol Last Admin: 06/02/18 05:28 Dose: 4 units Lorazepam (Ativan) 2 mg IVPUSH Q4H PRN PRN Reason: Seizures Lorazepam (Ativan) 0.5 mg IVPUSH Q4H PRN PRN Reason: Anxiety Magnesium Sulfate (Pharmacy To Dose - Magnesium Replacement) 0 dose .XX ASDIRECTED PRN PRN Reason: RX TO WATCH MAG Metoprolol Tartrate (Lopressor) 5 mg IVPUSH Q4H PRN PRN Reason: Tachycardia Last Admin: 05/31/18 22:44 Dose: 5 mg Ondansetron HCl (Zofran) 4 mg IV Q6H PRN PRN Reason: Nausea/Vomiting Pantoprazole Sodium (Protonix Iv) 40 mg IVPUSH Q12H REPLACED BY [facility] Last Admin: 06/02/18 03:43 Dose: 40 mg Potassium Chloride (Pharmacy To Dose - Potassium Replacement) 0 dose .XX ASDIRECTED PRN PRN Reason: RX TO WATCH K Senna/Docusate Sodium (Senna Plus) 1 tab PO BID PRN PRN Reason: Constipation Sodium Chloride (Sodium Chloride 0.9%) 3 ml INH ASDIRECTED PRN PRN Reason: mix with racepinephrine neb Discontinued Medications Chlordiazepoxide HCl (Librium) 25 mg PO Q8H PRN PRN Reason: Withdrawal Symptoms Clonidine HCl (Catapres-Tts 3) 0.3 mg TRDERM Q7D ONE Stop: 05/27/18 09:01 Last Admin: 05/27/18 09:59 Dose: Not Given Clonidine HCl (Catapres) 0.1 mg PO Q4H PRN PRN Reason: Agitation Dextrose/Water (Dextrose 50% In Water) Confirm Administered Dose 50 ml .ROUTE .STK-MED ONE Stop: 05/27/18 06:23 Last Admin: 05/27/18 14:53 Dose: Not Given Dextrose/Water (Dextrose 50% In Water) Confirm Administered Dose 50 ml .ROUTE .STK-MED ONE Stop: 05/27/18 13:07 Last Admin: 05/27/18 13:12 Dose: Not Given Dextrose/Water (Dextrose 50% In Water) 50 ml IVPUSH ASDIRECTED PRN PRN Reason: Hypoglycemia Diazepam (Valium) 3 mg IV ONETIME ONE Stop: 05/30/18 08:04 Last Admin: 05/30/18 08:16 Dose: 3 mg Haloperidol Lactate (Haldol) Confirm Administered Dose 5 mg .ROUTE .STK-MED ONE Stop: 05/29/18 14:01 Last Admin: 05/29/18 14:50 Dose: Not Given Haloperidol Lactate (Haldol) 2 mg IVPUSH ONETIME ONE Stop: 05/29/18 14:01 Last Admin: 05/29/18 14:00 Dose: 2 mg Haloperidol Lactate (Haldol) 1 mg IVPUSH ONETIME ONE Stop: 05/29/18 14:21 Last Admin: 05/29/18 14:57 Dose: 1 mg Dextrose/Sodium Chloride (Dextrose 5%-Normal Saline) Confirm Administered Dose 1 ,000 mls @ as directed .ROUTE .STK-MED ONE Stop: 05/27/18 05:55 Last Admin: 05/27/18 14:53 Dose: Not Given Propofol (Diprivan 100 Ml) Confirm Administered Dose 100 mls @ as directed .ROUTE .[facility] ONE Stop: 05/27/18 06:16 Last Admin: 05/27/18 14:53 Dose: Not Given Dextrose/Sodium Chloride (Dextrose 5%-Normal Saline) Confirm Administered Dose 1 ,000 mls @ as directed .ROUTE .[facility] ONE Stop: 05/27/18 07:00 Last Admin: 05/27/18 14:53 Dose: Not Given Propofol (Diprivan 100 Ml) Confirm Administered Dose 100 mls @ as directed .ROUTE .[facility] ONE Stop: 05/27/18 08:21 Last Admin: 05/27/18 10:33 Dose: Not Given Ampicillin Sodium/Sulbactam (Sodium 3 gm/ Sodium Chloride) 100 mls @ 200 mls/ hr IV Q6H REPLACED BY [facility] Last Admin: 05/28/18 18:58 Dose: 200 mls/hr Ceftriaxone Sodium 1 gm/ (Sodium Chloride) 100 mls @ 200 mls/hr IV Q24H REPLACED BY [facility] Last Admin: 05/27/18 14:54 Dose: Not Given Magnesium Sulfate 2 gm/ Premix 50 mls @ 25 mls/hr IV ONETIME ONE Stop: 05/27/18 11:14 Last Admin: 05/27/18 10:30 Dose: 25 mls/hr Propofol (Diprivan 100 Ml) 100 mls @ 0.9 mls/hr IV TITRATE MAGO; Protocol Last Titration: 05/28/18 13:15 Dose: 0 mcg/kg/min, 0 mls/hr Dextrose/Sodium Chloride (Dextrose 5%-Normal Saline) 1,000 mls @ 125 mls/hr IV ASDIRECTED MAGO Last Infusion: 05/27/18 14:55 Dose: 200 mls/hr Dextrose/Sodium Chloride (Dextrose 5%-Normal Saline) Confirm Administered Dose 1 ,000 mls @ as directed .ROUTE .[facility] ONE Stop: 05/27/18 12:33 Last Admin: 05/27/18 13:05 Dose: Not Given Dextrose/Sodium Chloride (Dextrose 5%-Normal Saline) 1,000 mls @ 150 mls/hr IV ASDIRECTED MAGO Dextrose/Sodium Chloride (Dextrose 5%-Normal Saline) 1,000 mls @ 200 mls/hr IV ASDIRECTED MAGO Dextrose/Water (Dextrose 10% In Water) 500 mls @ 150 mls/hr IV ASDIRECTED MAGO Last Infusion: 05/27/18 19:10 Dose: 200 mls/hr Dextrose/Water (Dextrose 10% In Water) 1,000 mls @ 300 mls/hr IV ASDIRECTED MAGO Last Admin: 05/28/18 00:03 Dose: 300 mls/hr Potassium Chloride (Kcl 10 Meq In Water 100 Ml) 100 mls @ 100 mls/hr IV Q1H MAGO Stop: 05/28/18 03:59 Last Admin: 05/28/18 04:03 Dose: 100 mls/hr Magnesium Sulfate (Magnesium Sulfate 2 Gm In Water 50 Ml) 50 mls @ 25 mls/hr IV ONETIME ONE Stop: 05/28/18 00:14 Last Admin: 05/27/18 23:16 Dose: 25 mls/hr Dextrose/Water (Dextrose 10% In Water) 500 mls @ 300 mls/hr IV ASDIRECTED MAGO Last Admin: 05/29/18 13:26 Dose: 300 mls/hr Magnesium Sulfate 4 gm/ Premix 100 mls @ 25 mls/hr IV ONETIME ONE Stop: 05/28/18 13:59 Last Admin: 05/28/18 10:54 Dose: 25 mls/hr Magnesium Sulfate 4 gm/ Premix 100 mls @ 25 mls/hr IV ONETIME ONE Stop: 05/29/18 15:59 Last Admin: 05/29/18 11:01 Dose: 25 mls/hr Potassium Chloride 10 meq/ (Premix) 100 mls @ 100 mls/hr IV Q1H MAGO Stop: 05/29/18 15:59 Last Admin: 05/29/18 14:50 Dose: 100 mls/hr Thiamine HCl 100 mg/ Sodium (Chloride) 51 mls @ 100 mls/hr IV DAILY MAGO Stop: 05/31/18 09:31 Dextrose/Water (Dextrose 10% In Water) 1,000 mls @ 150 mls/hr IV ASDIRECTED MAGO Last Infusion: 05/30/18 18:31 Dose: 100 mls/hr Magnesium Sulfate 4 gm/ Premix 100 mls @ 25 mls/hr IV ONETIME ONE Stop: 05/30/18 11:59 Last Admin: 05/30/18 09:26 Dose: 25 mls/hr Dextrose/Water (Dextrose 10% In Water) 1,000 mls @ 100 mls/hr IV ASDIRECTED REPLACED BY [facility] Last Infusion: 05/31/18 07:30 Dose: 75 mls/hr Dextrose/Sodium Chloride (Dextrose 5%-Normal Saline) 1,000 mls @ 100 mls/hr IV ASDIRECTED MAGO Last Admin: 06/01/18 09:07 Dose: 100 mls/hr Sodium Chloride (Normal Saline) 500 mls @ 999 mls/hr IV .BOLUS ONE Stop: 06/01/18 08:07 Last Admin: 06/01/18 08:14 Dose: 999 mls/hr Magnesium Sulfate 4 gm/ Premix 100 mls @ 25 mls/hr IV ONETIME ONE Stop: 06/01/18 14:29 Last Admin: 06/01/18 11:40 Dose: 25 mls/hr Insulin Human Lispro (Humalog) 0 unit SUBCUT Q6H [facility]O; Protocol Last Admin: 05/31/18 07:34 Dose: Not Given Lorazepam (Ativan) 1 mg IV Q6H PRN PRN Reason: Anxiety Last Admin: 05/29/18 13:50 Dose: 1 mg Lorazepam (Ativan) 1 mg IVPUSH ONETIME ONE Stop: 05/29/18 14:11 Last Admin: 05/29/18 14:10 Dose: 1 mg Lorazepam (Ativan) 0 mg IV Q4H PRN; Protocol PRN Reason: Withdrawal Symptoms Last Admin: 06/01/18 00:16 Dose: 1 mg Lorazepam (Ativan) 0 mg IV ASDIRECTED REPLACED BY [facility]; Protocol Last Admin: 06/01/18 18:02 Dose: 1 mg Midazolam HCl (Versed 5 Mg/Ml) 50 mg .ROUTE .STK-MED ONE Stop: 05/27/18 05:51 Midazolam HCl (Versed 1 Mg/Ml) 10 mg .ROUTE .STK-MED ONE Stop: 05/27/18 05:51 Modafinil (Provigil) 200 mg PO NOW [facility] Stop: 05/28/18 13:29 Last Admin: 05/28/18 13:44 Dose: 200 mg Modafinil (Provigil) 200 mg PO DAILY REPLACED BY [facility] Stop: 05/29/18 08:01 Last Admin: 05/29/18 08:40 Dose: Not Given Racepinephrine (S-2 2.25%) 0.5 ml NEB ONETIME ONE Stop: 05/28/18 13:24 Last Admin: 05/28/18 13:33 Dose: 0.5 ml Racepinephrine (S-2 2.25%) Confirm Administered Dose 0.5 ml .ROUTE .STK-MED ONE Stop: 05/28/18 13:27 Last Admin: 05/28/18 13:33 Dose: Not Given Saccharomyces Boulardii (Florastor) 250 mg PO BID MAGO Stop: 05/30/18 09:01 Last Admin: 05/30/18 09:26 Dose: Not Given Succinylcholine Chloride (Quelicin) 200 mg .ROUTE .STK-MED ONE Stop: 05/27/18 05:51 Temazepam (Restoril) 7.5 mg PO BEDTIME PRN PRN Reason: Sleep Thiamine HCl (Vitamin B-1) 100 mg IV ONETIME ONE Stop: 05/29/18 07:46 Last Admin: 05/29/18 08:38 Dose: 100 mg Thiamine HCl (Vitamin B-1) 100 mg IVPUSH DAILY [facility] Stop: 05/31/18 09:01 Last Admin: 05/31/18 08:18 Dose: 100 mg Vecuronium [place] (Vecuronium) 10 mg .ROUTE .STK-MED ONE Stop: 05/27/18 05:51 - Exam Quality Assessment: DVT Prophylaxis General: Alert, No Acute Distress HEENT: Pupils Equal, Pupils Reactive Neck: Supple Lungs: Clear to Auscultation, Normal Respiratory Effort Cardiovascular: Regular Rate, Regular Rhythm GI/Abdominal Exam: Normal Bowel Sounds, Soft (Female) Exam: Deferred Extremities: Normal Inspection, No Pedal Edema, Normal Capillary Refill Peripheral Pulses: 2+: Radial (L), Radial (R), Dorsalis Pedis (L), Dorsalis Pedis (R) Skin: Warm, Dry, Intact Neurological: Other (unable to accurately insurance assistant neurological status due to menal state. She does lightly squeeze left hand and raise left foot to command, however nothing is noted on right side. ) Psy/Mental Status: Alert. No: Agitated - Problem List & Annotations (1) Intentional overdose of drug by injectable substance SNOMED Code(s): 709322428 Code(s): T50.902A - POISONING BY UNSP DRUG/MEDS/BIOL SUBST, SELF-HARM, INIT Status: Acute Priority: High Current Visit: Yes (2) Alcohol abuse SNOMED Code(s): 00514715 Code(s): F10.10 - ALCOHOL ABUSE, UNCOMPLICATED Status: Acute Priority: Medium Current Visit: No (3) Altered mental status SNOMED Code(s): 801767583 Code(s): R41.82 - ALTERED MENTAL STATUS, UNSPECIFIED Status: Acute Priority: High Current Visit: Yes Qualifiers: Altered mental status type: persistent vegetative state Qualified Code(s): R40.3 - Persistent vegetative state (4) Anoxic brain damage Status: Acute Priority: High Current Visit: Yes - Problem List Review Problem List Initiated/Reviewed/Updated: Yes - Plan Plan:: Assessment/Plan: Acute: Anoxic Brain Injury - She appears to be in a semi-vegetative state - She was out for unknown duration; deprived of glucose and +/- O2 plus she was also intoxicated - Severity unclear at this point; only time will tell - Unable to perform neuro exam due to inability to follow simple commands - Brain MRI report reads nothing acute is appreciated - EEG completed with pending report - Spoke to Dr. Connolly on-call Neurologist in [facility] and discussed case with him. He recommends to wait a few more days; if she does not recover cognitively then we would address nutritional status and possibly alf rather than stroker rehab Permissive Hyperglycemia - BS fluctuates in the 200s-300s - She is unable to take food orally due to AMS; offered food but stares at it - Continue D5W 0.9NS but at 75cchr - Continue Low dose ISS Malnutrition/Nutritional Status - Has been NPO since admission - Consulted Dr. Melo for PEG placement tomorrow Resolved: S/p Respiratory Failure w/ Possible Associated Aspiration - 2/2 AMS and Not able to Protect her Airway - ABG shows pH of 7.19, pCO2 of 58.7, pO2 of 81, HCO3 of 21.7, O2 Sat of 91.8 on Vent; her repeat ABG looks good plan for extubation after morning rounds today - Initial Vent Setting: AC 500/VT, 16/RR, 5/PEEP on 80% FiO2; now AC 500/12/5 /30% - IV Unasyn for Aspiration Syndrome coverage - Sedation vacation with plan for extubation S/p Severe Hypoglycemia - Iatrogenic from significant amount of insulin she took - Hypoglycemia protocol plus on dextrose IV fluids - Continue routine accu-check S/p Positive Troponin W/ Prolonged QT - Likely 2/2 Demand Ischemia - Malignant Hypertensive on presentation - CKMB is negative - Serial EKGs and will continue to monitor S/p Malignant HTN - Carries a hx/o HTN - Documented BP of 203/132 and 148/102 mmHg - Now improved - Resume home BP meds along with PRN anti-hypertensive agents S/p Suicide Attempt via OD of Insulin - Carries a hx/o it in the past - Took for pens of [place] insulin - She has received dextrose en route and while in ED - She is currently on D5W for maintenance; will continue it - Accu-check Q1H and may change to [id number] as needed - 1:1 care once off vent - Tele-psych and SAC consult when appropriate S/P Hypomagnesemia - Mg 1.6-->1.8 - 2/2 NPO status - Replete and monitor S/P Mild Renal Insufficiency - 2/2 NPO status - Bolus 500 ml of NS x1 Chronic: Impaired Vision HTN Asthma GERD Hx/o Pancreatitis Fibroids OA/DJD Hx/o Suicide Attempt Depression DM1 and MANOJ Plan: She is essentially the same Aspiration Precaution Accu-check Q6H Continue IV Thiamine DVT/GI PPx: Lovenox SQ/PPI Continue routine Accu-check w/ hypoglycemia protocol SW/CM for d/c planning for possible NS vs stroke rehab placement Code status: 1 LOS > 96 hrs due to pending NH placement and the need for possible PEG tube placement
[2018-06-02] MEDS: Dextrose 5%-0.9% NaCl with KCl 1,000 ML IV SCH (10:25)
[2018-06-02] MEDS: LORazepam 2 MG/ML SDV IVPUSH PRN ×2 (12:25→17:00)
[2018-06-02] MEDS: hydrALAZINE 20 MG/ML SDV IVPUSH PRN ×2 (15:22→19:48)
[2018-06-02] MEDS: Metoprolol Tartrate 5 MG/5 ML SDV IVPUSH PRN (17:41)
[2018-06-03] MEDS: Dextrose 5%-0.9% NaCl with KCl 1,000 ML IV SCH ×2 (00:03→15:10)
[2018-06-03] MEDS: Insulin Lispro 100 UNIT/ML 10 ML VIAL SUBCUT SCH ×4 (00:07→18:10)
[2018-06-03] MEDS: Pantoprazole 40 MG Vial IVPUSH SCH ×2 (03:02→14:05)
[2018-06-03] MEDS: LORazepam 2 MG/ML SDV IVPUSH PRN (03:24)
--- NOTE | 2018-06-03 08:47 | PCM.PN ---
- General Info Date of Service: 06/03/18 Admission Dx/Problem (Free Text): Admission Diagnosis/Problem Admission Diagnosis/Problem Intentional overdose of drug by injectable substance Subjective Update: In to see Nkechi. She is sleeping. She was straight cath'ed twice last night with significant retention. She is high risk for UTI from avalos catheter due to her mental status. Otherwise she remains stable pending placement. Nursing is working on progression out of 1:1. She has been hypertensive and tachycardic to some extent. PRN IVP medications remain in place until we can obtain PEG tube. IV fluids have been turned down. Functional Status: Reports: Pain Controlled, Urinating. Denies: Tolerating Diet (no apparent pain ), Ambulating, New Symptoms - Review of Systems General: Denies: Fever Pulmonary: Denies: Cough Cardiovascular: Denies: Edema Gastrointestinal: Denies: Diarrhea, Vomiting Neurological: Reports: Other (No change from prior day ) Psychiatric: Reports: No Symptoms Systems Review Comment:: Due to patients mental status unable to obtain ROS. She does not appear to be in any pain. She is alert and will make eye contact occasionally although other times she will not respond to her name. - Patient Data Vitals - Most Recent: Last Vital Signs Temp 98.6 F 06/02/18 19:38 Pulse 105 H 06/02/18 20:02 Resp 16 06/02/18 19:38 BP 140/74 06/03/18 03:10 Pulse Ox 98 06/02/18 20:02 Weight - Most Recent: 189 lb 9.6 oz I&O - Last 24 Hours: Intake & Output 06/02/18 06/03/18 06/03/18 22:59 06:59 14:59 Intake Total 1403 356 Output Total 1000 Balance 403 356 Lab Results Last 24 Hours: Laboratory Results - last 24 hr 06/02/18 06/02/18 06/03/18 Range/Units 11:04 17:23 00:01 WBC (3.98-10.04) K/mm3 RBC (3.98-5.22) M/mm3 Hgb (11.2-15.7) gm/L Hct (34.1-44.9) % MCV (79.4-94.8) fl MCH (25.6-32.2) pg MCHC (32.2-35.5) g/dl RDW Std Deviation (36.4-46.3) fL Plt Count (182-369) K/mm3 MPV (9.4-12.3) fl Neut % (Auto) (34.0-71.1) % Lymph % (Auto) (19.3-51.7) % Drew % (Auto) (4.7-12.5) % Eos % (Auto) (0.7-5.8) Baso % (Auto) (0.1-1.2) % Neut # (Auto) (1.56-6.13) K/mm3 Lymph # (Auto) (1.18-3.74) K/mm3 Drew # (Auto) (0.24-0.36) K/mm3 Eos # (Auto) (0.04-0.36) K/mm3 Baso # (Auto) (0.01-0.08) K/mm3 POC Glucose 223 H 277 H 291 H (70-105) mg/dL 06/03/18 06/03/18 Range/Units 06:00 08:13 WBC 3.03 L (3.98-10.04) K/mm3 RBC 2.58 L (3.98-5.22) M/mm3 Hgb 9.2 L (11.2-15.7) gm/L Hct 27.7 L (34.1-44.9) % MCV 107.4 H (79.4-94.8) fl MCH 35.7 H (25.6-32.2) pg MCHC 33.2 (32.2-35.5) g/dl RDW Std Deviation 45.4 (36.4-46.3) fL Plt Count 182 (182-369) K/mm3 MPV 9.2 L (9.4-12.3) fl Neut % (Auto) 42.5 (34.0-71.1) % Lymph % (Auto) 35.0 (19.3-51.7) % Drew % (Auto) 17.5 H (4.7-12.5) % Eos % (Auto) 3.3 (0.7-5.8) Baso % (Auto) 0.7 (0.1-1.2) % Neut # (Auto) 1.29 L (1.56-6.13) K/mm3 Lymph # (Auto) 1.06 L (1.18-3.74) K/mm3 Drew # (Auto) 0.53 H (0.24-0.36) K/mm3 Eos # (Auto) 0.10 (0.04-0.36) K/mm3 Baso # (Auto) 0.02 (0.01-0.08) K/mm3 POC Glucose 224 H (70-105) mg/dL Med Orders - Current: Current Medications Acetaminophen (Tylenol) 650 mg PO Q4H PRN PRN Reason: Pain (Mild 1-3)/fever Hydrocodone Bitart/Acetaminophen ([place]ell 325-5 Mg) 1 tab PO Q4H PRN PRN Reason: Pain (moderate 4-6) Albuterol/Ipratropium (Duoneb 3.0-0.5 Mg/3 Ml) 3 ml NEB Q4H PRN PRN Reason: Shortness Of Breath/wheezing Bisacodyl (Dulcolax) 5 mg PO DAILY PRN PRN Reason: Constipation Dextrose/Water (Dextrose 50% In Water) 50 ml IVPUSH ASDIRECTED PRN PRN Reason: Hypoglycemia Last Admin: 05/28/18 23:08 Dose: 25 ml Docusate Sodium (Colace) 100 mg PO BID PRN PRN Reason: Constipation Enoxaparin Sodium (Lovenox) 40 mg SUBCUT DAILY [facility] Last Admin: 06/02/18 08:25 Dose: 40 mg Hydralazine HCl (Apresoline) 20 mg IVPUSH Q4H PRN PRN Reason: Hypertension Last Admin: 06/02/18 19:48 Dose: 20 mg Hydromorphone HCl (Dilaudid) 0.25 mg IVPUSH Q2H PRN PRN Reason: Pain (severe 7-10) Promethazine HCl 6.25 mg/ (Sodium Chloride) 50.25 mls @ 100 mls/hr IV Q6H PRN PRN Reason: Nausea/Vomiting Potassium Chloride/Dextrose/Sod Cl (D5 Ns With 20 Meq Kcl) 1,000 mls @ 75 mls/ hr IV ASDIRECTED [facility] Last Admin: 06/03/18 00:03 Dose: 75 mls/hr Insulin Human Lispro (Humalog) 0 unit SUBCUT Q6HR [facility]; Protocol Last Admin: 06/03/18 06:05 Dose: 4 units Lorazepam (Ativan) 2 mg IVPUSH Q4H PRN PRN Reason: Seizures Lorazepam (Ativan) 0.5 mg IVPUSH Q4H PRN PRN Reason: Anxiety Last Admin: 06/03/18 03:24 Dose: 0.5 mg Magnesium Sulfate (Pharmacy To Dose - Magnesium Replacement) 0 dose .XX ASDIRECTED PRN PRN Reason: RX TO WATCH MAG Metoprolol Tartrate (Lopressor) 5 mg IVPUSH Q4H PRN PRN Reason: Tachycardia Last Admin: 06/02/18 17:41 Dose: 5 mg Ondansetron HCl (Zofran) 4 mg IV Q6H PRN PRN Reason: Nausea/Vomiting Pantoprazole Sodium (Protonix Iv) 40 mg IVPUSH Q12H [facility] Last Admin: 06/03/18 03:02 Dose: 40 mg Potassium Chloride (Pharmacy To Dose - Potassium Replacement) 0 dose .XX ASDIRECTED PRN PRN Reason: RX TO WATCH K Senna/Docusate Sodium (Senna Plus) 1 tab PO BID PRN PRN Reason: Constipation Sodium Chloride (Sodium Chloride 0.9%) 3 ml INH ASDIRECTED PRN PRN Reason: mix with racepinephrine neb Discontinued Medications Chlordiazepoxide HCl (Librium) 25 mg PO Q8H PRN PRN Reason: Withdrawal Symptoms Clonidine HCl (Catapres-Tts 3) 0.3 mg TRDERM Q7D ONE Stop: 05/27/18 09:01 Last Admin: 05/27/18 09:59 Dose: Not Given Clonidine HCl (Catapres) 0.1 mg PO Q4H PRN PRN Reason: Agitation Dextrose/Water (Dextrose 50% In Water) Confirm Administered Dose 50 ml .ROUTE .STK-MED ONE Stop: 05/27/18 06:23 Last Admin: 05/27/18 14:53 Dose: Not Given Dextrose/Water (Dextrose 50% In Water) Confirm Administered Dose 50 ml .ROUTE .STK-MED ONE Stop: 05/27/18 13:07 Last Admin: 05/27/18 13:12 Dose: Not Given Dextrose/Water (Dextrose 50% In Water) 50 ml IVPUSH ASDIRECTED PRN PRN Reason: Hypoglycemia Diazepam (Valium) 3 mg IV ONETIME ONE Stop: 05/30/18 08:04 Last Admin: 05/30/18 08:16 Dose: 3 mg Haloperidol Lactate (Haldol) Confirm Administered Dose 5 mg .ROUTE .[facility]-MED ONE Stop: 05/29/18 14:01 Last Admin: 05/29/18 14:50 Dose: Not Given Haloperidol Lactate (Haldol) 2 mg IVPUSH ONETIME ONE Stop: 05/29/18 14:01 Last Admin: 05/29/18 14:00 Dose: 2 mg Haloperidol Lactate (Haldol) 1 mg IVPUSH ONETIME ONE Stop: 05/29/18 14:21 Last Admin: 05/29/18 14:57 Dose: 1 mg Dextrose/Sodium Chloride (Dextrose 5%-Normal Saline) Confirm Administered Dose 1 ,000 mls @ as directed .ROUTE .[facility] ONE Stop: 05/27/18 05:55 Last Admin: 05/27/18 14:53 Dose: Not Given Propofol (Diprivan 100 Ml) Confirm Administered Dose 100 mls @ as directed .ROUTE .[facility] ONE Stop: 05/27/18 06:16 Last Admin: 05/27/18 14:53 Dose: Not Given Dextrose/Sodium Chloride (Dextrose 5%-Normal Saline) Confirm Administered Dose 1 ,000 mls @ as directed .ROUTE .[facility] ONE Stop: 05/27/18 07:00 Last Admin: 05/27/18 14:53 Dose: Not Given Propofol (Diprivan 100 Ml) Confirm Administered Dose 100 mls @ as directed .ROUTE .[facility] ONE Stop: 05/27/18 08:21 Last Admin: 05/27/18 10:33 Dose: Not Given Ampicillin Sodium/Sulbactam (Sodium 3 gm/ Sodium Chloride) 100 mls @ 200 mls/ hr IV Q6H [facility] Last Admin: 05/28/18 18:58 Dose: 200 mls/hr Ceftriaxone Sodium 1 gm/ (Sodium Chloride) 100 mls @ 200 mls/hr IV Q24H [facility] Last Admin: 05/27/18 14:54 Dose: Not Given Magnesium Sulfate 2 gm/ Premix 50 mls @ 25 mls/hr IV ONETIME ONE Stop: 05/27/18 11:14 Last Admin: 05/27/18 10:30 Dose: 25 mls/hr Propofol (Diprivan 100 Ml) 100 mls @ 0.9 mls/hr IV TITRATE [facility]; Protocol Last Titration: 05/28/18 13:15 Dose: 0 mcg/kg/min, 0 mls/hr Dextrose/Sodium Chloride (Dextrose 5%-Normal Saline) 1,000 mls @ 125 mls/hr IV ASDIRECTED [facility] Last Infusion: 05/27/18 14:55 Dose: 200 mls/hr Dextrose/Sodium Chloride (Dextrose 5%-Normal Saline) Confirm Administered Dose 1 ,000 mls @ as directed .ROUTE .STK-MED ONE Stop: 05/27/18 12:33 Last Admin: 05/27/18 13:05 Dose: Not Given Dextrose/Sodium Chloride (Dextrose 5%-Normal Saline) 1,000 mls @ 150 mls/hr IV ASDIRECTED [facility] Dextrose/Sodium Chloride (Dextrose 5%-Normal Saline) 1,000 mls @ 200 mls/hr IV ASDIRECTED [facility] Dextrose/Water (Dextrose 10% In Water) 500 mls @ 150 mls/hr IV ASDIRECTED [facility] Last Infusion: 05/27/18 19:10 Dose: 200 mls/hr Dextrose/Water (Dextrose 10% In Water) 1,000 mls @ 300 mls/hr IV ASDIRECTED [facility] Last Admin: 05/28/18 00:03 Dose: 300 mls/hr Potassium Chloride (Kcl 10 Meq In Water 100 Ml) 100 mls @ 100 mls/hr IV Q1H [facility] Stop: 05/28/18 03:59 Last Admin: 05/28/18 04:03 Dose: 100 mls/hr Magnesium Sulfate (Magnesium Sulfate 2 Gm In Water 50 Ml) 50 mls @ 25 mls/hr IV ONETIME ONE Stop: 05/28/18 00:14 Last Admin: 05/27/18 23:16 Dose: 25 mls/hr Dextrose/Water (Dextrose 10% In Water) 500 mls @ 300 mls/hr IV ASDIRECTED [facility] Last Admin: 05/29/18 13:26 Dose: 300 mls/hr Magnesium Sulfate 4 gm/ Premix 100 mls @ 25 mls/hr IV ONETIME ONE Stop: 05/28/18 13:59 Last Admin: 05/28/18 10:54 Dose: 25 mls/hr Magnesium Sulfate 4 gm/ Premix 100 mls @ 25 mls/hr IV ONETIME ONE Stop: 05/29/18 15:59 Last Admin: 05/29/18 11:01 Dose: 25 mls/hr Potassium Chloride 10 meq/ (Premix) 100 mls @ 100 mls/hr IV Q1H [facility] Stop: 05/29/18 15:59 Last Admin: 05/29/18 14:50 Dose: 100 mls/hr Thiamine HCl 100 mg/ Sodium (Chloride) 51 mls @ 100 mls/hr IV DAILY [facility] Stop: 05/31/18 09:31 Dextrose/Water (Dextrose 10% In Water) 1,000 mls @ 150 mls/hr IV ASDIRECTED [facility] Last Infusion: 05/30/18 18:31 Dose: 100 mls/hr Magnesium Sulfate 4 gm/ Premix 100 mls @ 25 mls/hr IV ONETIME ONE Stop: 05/30/18 11:59 Last Admin: 05/30/18 09:26 Dose: 25 mls/hr Dextrose/Water (Dextrose 10% In Water) 1,000 mls @ 100 mls/hr IV ASDIRECTED [facility] Last Infusion: 05/31/18 07:30 Dose: 75 mls/hr Dextrose/Sodium Chloride (Dextrose 5%-Normal Saline) 1,000 mls @ 100 mls/hr IV ASDIRECTED [facility] Last Admin: 06/01/18 09:07 Dose: 100 mls/hr Sodium Chloride (Normal Saline) 500 mls @ 999 mls/hr IV .BOLUS ONE Stop: 06/01/18 08:07 Last Admin: 06/01/18 08:14 Dose: 999 mls/hr Magnesium Sulfate 4 gm/ Premix 100 mls @ 25 mls/hr IV ONETIME ONE Stop: 06/01/18 14:29 Last Admin: 06/01/18 11:40 Dose: 25 mls/hr Insulin Human Lispro (Humalog) 0 unit SUBCUT Q6H [facility]; Protocol Last Admin: 05/31/18 07:34 Dose: Not Given Lorazepam (Ativan) 1 mg IV Q6H PRN PRN Reason: Anxiety Last Admin: 05/29/18 13:50 Dose: 1 mg Lorazepam (Ativan) 1 mg IVPUSH ONETIME ONE Stop: 05/29/18 14:11 Last Admin: 05/29/18 14:10 Dose: 1 mg Lorazepam (Ativan) 0 mg IV Q4H PRN; Protocol PRN Reason: Withdrawal Symptoms Last Admin: 06/01/18 00:16 Dose: 1 mg Lorazepam (Ativan) 0 mg IV ASDIRECTED [facility]; Protocol Last Admin: 06/01/18 18:02 Dose: 1 mg Midazolam HCl (Versed 5 Mg/Ml) 50 mg .ROUTE .STK-MED ONE Stop: 05/27/18 05:51 Midazolam HCl (Versed 1 Mg/Ml) 10 mg .ROUTE .STK-MED ONE Stop: 05/27/18 05:51 Modafinil (Provigil) 200 mg PO NOW STA Stop: 05/28/18 13:29 Last Admin: 05/28/18 13:44 Dose: 200 mg Modafinil (Provigil) 200 mg PO DAILY [facility] Stop: 05/29/18 08:01 Last Admin: 05/29/18 08:40 Dose: Not Given Racepinephrine (S-2 2.25%) 0.5 ml NEB ONETIME ONE Stop: 05/28/18 13:24 Last Admin: 05/28/18 13:33 Dose: 0.5 ml Racepinephrine (S-2 2.25%) Confirm Administered Dose 0.5 ml .ROUTE .STK-MED ONE Stop: 05/28/18 13:27 Last Admin: 05/28/18 13:33 Dose: Not Given Saccharomyces Boulardii (Florastor) 250 mg PO BID [facility] Stop: 05/30/18 09:01 Last Admin: 05/30/18 09:26 Dose: Not Given Succinylcholine Chloride (Quelicin) 200 mg .ROUTE .STK-MED ONE Stop: 05/27/18 05:51 Temazepam (Restoril) 7.5 mg PO BEDTIME PRN PRN Reason: Sleep Thiamine HCl (Vitamin B-1) 100 mg IV ONETIME ONE Stop: 05/29/18 07:46 Last Admin: 05/29/18 08:38 Dose: 100 mg Thiamine HCl (Vitamin B-1) 100 mg IVPUSH DAILY [facility] Stop: 05/31/18 09:01 Last Admin: 05/31/18 08:18 Dose: 100 mg Vecuronium [place] (Vecuronium) 10 mg .ROUTE .STK-MED ONE Stop: 05/27/18 05:51 - Exam Quality Assessment: DVT Prophylaxis General: Alert, No Acute Distress HEENT: Pupils Equal, Pupils Reactive Neck: Supple Lungs: Clear to Auscultation, Normal Respiratory Effort Cardiovascular: Regular Rhythm, Tachycardia (107) GI/Abdominal Exam: Normal Bowel Sounds, Soft Extremities: Normal Inspection, No Pedal Edema, Normal Capillary Refill Peripheral Pulses: 2+: Radial (L), Radial (R), Dorsalis Pedis (L), Dorsalis Pedis (R) Skin: Warm, Dry Neurological: No New Focal Deficit Psy/Mental Status: Alert - Problem List & Annotations (1) Intentional overdose of drug by injectable substance SNOMED Code(s): 703104909 Code(s): T50.902A - POISONING BY UNSP DRUG/MEDS/BIOL SUBST, SELF-HARM, INIT Status: Acute Priority: High Current Visit: Yes (2) Alcohol abuse SNOMED Code(s): 68616261 Code(s): F10.10 - ALCOHOL ABUSE, UNCOMPLICATED Status: Acute Priority: Medium Current Visit: No (3) Altered mental status SNOMED Code(s): 150818425 Code(s): R41.82 - ALTERED MENTAL STATUS, UNSPECIFIED Status: Acute Priority: High Current Visit: Yes Qualifiers: Altered mental status type: persistent vegetative state Qualified Code(s): R40.3 - Persistent vegetative state (4) Anoxic brain damage Status: Acute Priority: High Current Visit: Yes - Problem List Review Problem List Initiated/Reviewed/Updated: Yes - Plan Plan:: Assessment/Plan: Acute: Anoxic Brain Injury - She appears to be in a semi-vegetative state - She was out for unknown duration; deprived of glucose and +/- O2 plus she was also intoxicated - Severity unclear at this point; only time will tell - Unable to perform neuro exam due to inability to follow simple commands - Brain MRI report reads nothing acute is appreciated - EEG completed with pending report - Spoke to Dr. Connolly on-call Neurologist in [facility] and discussed case with him. He recommends to wait a few more days; if she does not recover cognitively then we would address nutritional status and possibly skilled nursing rather than stroker rehab Permissive Hyperglycemia - BS fluctuates in the 200s-300s - She is unable to take food orally due to AMS; offered food but stares at it - Continue D5W 0.9NS but at 75cchr -> decrease to 50mL/Hr - Continue Low dose ISS -> increase to medium dose SS Malnutrition/Nutritional Status - Has been NPO since admission - Consulted Dr. Melo for PEG placement Hypomagnesemia - Mg 1.6-->1.8-->1.4 - 2/2 NPO status - Replete and monitor Resolved: S/p Respiratory Failure w/ Possible Associated Aspiration - 2/2 AMS and Not able to Protect her Airway - ABG shows pH of 7.19, pCO2 of 58.7, pO2 of 81, HCO3 of 21.7, O2 Sat of 91.8 on Vent; her repeat ABG looks good plan for extubation after morning rounds today - Initial Vent Setting: AC 500/VT, 16/RR, 5/PEEP on 80% FiO2; now AC 500/12/5 /30% - IV Unasyn for Aspiration Syndrome coverage - Sedation vacation with plan for extubation S/p Severe Hypoglycemia - Iatrogenic from significant amount of insulin she took - Hypoglycemia protocol plus on dextrose IV fluids - Continue routine accu-check S/p Positive Troponin W/ Prolonged QT - Likely 2/2 Demand Ischemia - Malignant Hypertensive on presentation - CKMB is negative - Serial EKGs and will continue to monitor S/p Malignant HTN - Carries a hx/o HTN - Documented BP of 203/132 and 148/102 mmHg - Now improved - Resume home BP meds along with PRN anti-hypertensive agents S/p Suicide Attempt via OD of Insulin - Carries a hx/o it in the past - Took for pens of [place] insulin - She has received dextrose en route and while in ED - She is currently on D5W for maintenance; will continue it - Accu-check Q1H and may change to [id number] as needed - 1:1 care once off vent - Tele-psych and SAC consult when appropriate S/P Mild Renal Insufficiency - 2/2 NPO status - Bolus 500 ml of NS x1 Chronic: Impaired Vision HTN Asthma GERD Hx/o Pancreatitis Fibroids OA/DJD Hx/o Suicide Attempt Depression DM1 and MANOJ Plan: She is essentially the same today Aspiration Precaution Accu-check Q6H Continue IV Thiamine DVT/GI PPx: Lovenox SQ/PPI Continue routine Accu-check w/ hypoglycemia protocol SW/CM for d/c planning for possible NS vs stroke rehab placement Code status: 1 LOS > 96 hrs due to pending NH placement and the need for possible PEG tube placement
[2018-06-03] MEDS: Enoxaparin 40 MG/0.4 ML Syringe SUBCUT SCH (09:08)
[2018-06-03] MEDS ORDERED: Magnesium Sulfate/Water 4 GM in Premix Bag 1 BAG IV ONE (09:30)
[2018-06-03] MEDS: hydrALAZINE 20 MG/ML SDV IVPUSH PRN ×2 (09:42→16:27)
--- NOTE | 2018-06-03 18:31 | PCM.CONS ---
H&P History of Present Illness - General Date of Service: 06/03/18 Admit Problem/Dx: Admission Diagnosis/Problem Admission Diagnosis/Problem Intentional overdose of drug by injectable substance Source of Information: Old Records, Provider History Limitations: Reports: Altered Mental Status - History of Present Illness Initial Comments - Free Text/Narative: 53 yo female, admitted 05/27/2018 (7 days ago) for suicidal attempt by self- injection with LA insulin and multiple other medications, suffering anoxic brain injury. Concern for vegetative state. The hospitalist service is requesting a PEG tube for feeding. The patient has a history of multiple prior suicide attempts (Jan 2017 and May 2017). The patient was initially admitted to the ICU, intubated, but was extubated two days later. She eventually transferred to the [facility]. She remains in a vegetative state, with no purposeful movement, and unable to follow any commands. She has not been able to take anything by mouth. Nutrition is only IV fluids with D5 through a peripheral IV. - Related Data Allergies/Adverse Reactions: Allergies Allergy/AdvReac Type Severity Reaction Status Date / Time Influenza Virus Vaccines Allergy Itching Verified 08/20/16 15:18 pneumococcal vaccine Allergy Redness Verified 08/20/16 15:18 Home Medications: Home Meds Insulin Detemir [Levemir] 30 unit SUBCUT 05/27/18 [History] Insulin Glarg,Human.Rec.Analog [Lantus Solostar] 30 units SUBCUT QAM 05/27/18 [ History] Lisinopril [Zestril] 40 mg PO DAILY 05/27/18 [History] Past Medical History HEENT History: Reports: Impaired Vision Other HEENT History: wear glasses Cardiovascular History: Reports: Hypertension Respiratory History: Reports: Asthma Gastrointestinal History: Reports: GERD, Pancreatitis Genitourinary History: Reports: UTI, Recurrent [employer] History: Reports: Fibroids, Other (See Below) Other OB/BYN History: hysterectomy with overies intact Musculoskeletal History: Reports: Other (See Below) Other Musculoskeletal History: pt takes lyrica for pain Neurological History: Reports: None Psychiatric History: Reports: Depression, Suicide Attempt Endocrine/Metabolic History: Reports: Diabetes, Type I Other Endocrine/Metabolic History: recent weight gain Hematologic History: Reports: Iron Deficiency Other Oncologic History: colon polups Dermatologic History: Reports: None - Infectious Disease History Infectious Disease History: Reports: Chicken Pox - Past Surgical History Cardiovascular Surgical History: Reports: None GI Surgical History: Reports: Appendectomy, Bariatric Procedure (Gastric bypass surgery (unclear details).), Cholecystectomy Female Surgical History: Reports: Hysterectomy, Other (See Below) Neurological Surgical History: Reports: None Dermatological Surgical History: Reports: Other (See Below) Social & Family History - Family History Family Medical History: Noncontributory - Tobacco Use Smoking Status *Q: Never Smoker Second Hand Smoke Exposure: No - Caffeine Use Caffeine Use: Reports: Coffee Other Caffeine Use: unknown Caffeine Use Comment: unable to assess - Alcohol Use Alcohol Use History: Yes Days Per Week of Alcohol Use: 7 Number of Drinks Per Day: 7 Total Drinks Per Week: 49 Alcohol Use Comment: h/o alcohol abuse - Recreational Drug Use Recreational Drug Use: No - Living Situation & Occupation Living situation: Reports: , Other (has children) Occupation: Unemployed H&P Review of Systems - Review of Systems: Review Of Systems: Unable To Obtain Exam - Exam Exam: See Below - Vital Signs Vital Signs: Last Vital Signs Temp 37.1 C 06/03/18 12:32 Pulse 94 06/03/18 15:27 Resp 18 06/03/18 15:27 BP 177/83 H 06/03/18 16:22 Pulse Ox 95 06/03/18 15:27 Weight: 86.001 kg - Exam General: No: Alert HEENT: Conjunctiva Clear, Pupils Equal, Pupils Reactive Lungs: Clear to Auscultation, Normal Respiratory Effort Cardiovascular: Regular Rate, Regular Rhythm, Normal S1, Normal S2 GI/Abdominal Exam: Soft, Non-Tender, Other (well-healed upper midline surgical scar) Extremities: Normal Inspection Neuro Extensive - Mental Status: Other (Does not follow commands.) Neuro Extensive - Motor, Sensory, Reflexes: Other (Moves all 4 extremities, but not purposeful. Unable to follow commands.) - Patient Data Lab Results Last 24 hrs: Laboratory Results - last 24 hr 06/03/18 06/03/18 06/03/18 Range/Units 00:01 06:00 08:13 WBC 3.03 L (3.98-10.04) K/mm3 RBC 2.58 L (3.98-5.22) M/mm3 Hgb 9.2 L (11.2-15.7) gm/L Hct 27.7 L (34.1-44.9) % MCV 107.4 H (79.4-94.8) fl MCH 35.7 H (25.6-32.2) pg MCHC 33.2 (32.2-35.5) g/dl RDW Std Deviation 45.4 (36.4-46.3) fL Plt Count 182 (182-369) K/mm3 MPV 9.2 L (9.4-12.3) fl Neut % (Auto) 42.5 (34.0-71.1) % Lymph % (Auto) 35.0 (19.3-51.7) % Wright % (Auto) 17.5 H (4.7-12.5) % Eos % (Auto) 3.3 (0.7-5.8) Baso % (Auto) 0.7 (0.1-1.2) % Neut # (Auto) 1.29 L (1.56-6.13) K/mm3 Lymph # (Auto) 1.06 L (1.18-3.74) K/mm3 Wright # (Auto) 0.53 H (0.24-0.36) K/mm3 Eos # (Auto) 0.10 (0.04-0.36) K/mm3 Baso # (Auto) 0.02 (0.01-0.08) K/mm3 Manual Slide Review Abnormal smear Sodium (136-145) mEq/L Potassium (3.5-5.1) mEq/L Chloride (98-107) mEq/L Carbon Dioxide (21-32) mEq/L Anion Gap (5-15) BUN (7-18) mg/dL Creatinine (0.55-1.02) mg/dL Est Cr Clr Drug Dosing mL/min Estimated GFR (MDRD) (>60) mL/min BUN/Creatinine Ratio (14-18) Glucose (74-106) mg/dL POC Glucose 291 H 224 H (70-105) mg/dL Calcium (8.5-10.1) mg/dL Magnesium (1.8-2.4) mg/dl 06/03/18 06/03/18 06/03/18 Range/Units 08:13 11:14 17:59 WBC (3.98-10.04) K/mm3 RBC (3.98-5.22) M/mm3 Hgb (11.2-15.7) gm/L Hct (34.1-44.9) % MCV (79.4-94.8) fl MCH (25.6-32.2) pg MCHC (32.2-35.5) g/dl RDW Std Deviation (36.4-46.3) fL Plt Count (182-369) K/mm3 MPV (9.4-12.3) fl Neut % (Auto) (34.0-71.1) % Lymph % (Auto) (19.3-51.7) % Wright % (Auto) (4.7-12.5) % Eos % (Auto) (0.7-5.8) Baso % (Auto) (0.1-1.2) % Neut # (Auto) (1.56-6.13) K/mm3 Lymph # (Auto) (1.18-3.74) K/mm3 Wright # (Auto) (0.24-0.36) K/mm3 Eos # (Auto) (0.04-0.36) K/mm3 Baso # (Auto) (0.01-0.08) K/mm3 Manual Slide Review Sodium 144 (136-145) mEq/L Potassium 3.9 (3.5-5.1) mEq/L Chloride 112 H (98-107) mEq/L Carbon Dioxide 22 (21-32) mEq/L Anion Gap 13.9 (5-15) BUN 9 (7-18) mg/dL Creatinine 1.0 (0.55-1.02) mg/dL Est Cr Clr Drug Dosing 69.73 mL/min Estimated GFR (MDRD) 58 (>60) mL/min BUN/Creatinine Ratio 9.0 L (14-18) Glucose 195 H (74-106) mg/dL POC Glucose 233 H 314 H (70-105) mg/dL Calcium 8.4 L (8.5-10.1) mg/dL Magnesium 1.4 L (1.8-2.4) mg/dl Result Diagrams: 06/04/18 05:57 06/04/18 05:57 Consult PN Assessment/Plan Procedures: Procedures ASSAY OF LACTIC ACID (06/01/17) ASSAY OF MAGNESIUM (06/01/17) BLOOD GASES ANY COMBINATION (06/01/17) COMPLETE CBC W/AUTO DIFF WBC (06/01/17) COMPREHEN METABOLIC PANEL (06/01/17) CT HEAD/BRAIN W/O DYE (06/01/17) CT MAXILLOFACIAL W/O DYE (08/20/16) DRUG TEST PRSMV INSTRMNT (06/01/17) ELECTROCARDIOGRAM TRACING (06/01/17) EMERGENCY DEPT VISIT (06/01/17) EMERGENCY DEPT VISIT (08/20/16) GLUCOSE BLOOD TEST (06/01/17) HYDRATE IV INFUSION ADD-ON (06/01/17) INSERT TEMP BLADDER CATH (06/01/17) ROUTINE VENIPUNCTURE (06/01/17) THER/PROPH/DIAG INJ SC/IM (08/20/16) THER/PROPH/DIAG IV INF INIT (06/01/17) TX/PRO/DX INJ NEW DRUG ADDON (06/01/17) URINALYSIS AUTO W/SCOPE (06/01/17) WITHDRAWAL OF ARTERIAL BLOOD (06/01/17) (1) Anoxic brain damage Priority: High Current Visit: Yes Problem List Initiated/Reviewed/Updated: Yes Plan: 53 yo female, h/o DM1, HTN, GERD, depression, prior multiple suicide attempts, alcohol abuse/dependence, admitted with anoxic brain injury in vegetative state , HD#8. Prior records indicate that she had gastric bypass surgery for morbid obesity in the past. Details of the procedure are not available. If she did indeed undergo Ilene-en-Y gastric bypass surgery, a gastrostomy tube would need to be placed into the gastric remnant. Traditional endoscopic placement would not be feasible. Endoscopic placement of a gastrostomy tube would require special equipment and expertise. Additionally, percutaneous placement may be possible with interventional radiology assistance. Otherwise, the patient would a more invasive surgical gastrostomy tube placement (by laparotomy or potentially by laparoscopy). Will discuss this issue with the hospitalist service, as well as the patient's family tomorrow. Addendum (on 06/04/2018 @ 1300) Discussed with the patient's by phone, who is agreeable to transfer to higher level of care with IR expertise. This has been coordinated with the hospitalist team. Dawit Zendejas M.D ([facility])., F.A.C.S. General Surgery
[2018-06-04] MEDS: Insulin Lispro 100 UNIT/ML 10 ML VIAL SUBCUT SCH ×2 (00:44→06:25)
[2018-06-04] MEDS: Pantoprazole 40 MG Vial IVPUSH SCH ×2 (04:05→14:03)
[2018-06-04] MEDS: hydrALAZINE 20 MG/ML SDV IVPUSH PRN (04:14)
[2018-06-04] MEDS ORDERED: Magnesium Sulfate/Water 2 GM in Premix Bag 1 BAG IV ONE (09:00)
[2018-06-04] MEDS: Enoxaparin 40 MG/0.4 ML Syringe SUBCUT SCH (10:00)
[2018-06-04] MEDS ORDERED: Insulin Lispro 100 Units/ML 3 ML Vial SUBCUT SCH (10:22)
[2018-06-04] MEDS: Dextrose 5%-0.9% NaCl with KCl 1,000 ML IV SCH (11:27)
--- NOTE | 2018-06-04 13:02 | PCM.DCSUM1 ---
Discharge Summary - Hospital Course HPI Initial Comments: This is a 53 yo white female with past medical hx/o Impaired Vision, HTN, Asthma , GERD, Hx/o Pancreatitis, Insomnia, Anxiety, Recurrent UTI, MANOJ, Hx/o Suicide Attempt, DM1, and Depression who was brought in by paramedics due to unresponsiveness. Her last known well was about midnight. Per ED notes, patient has taken large amount of LA insulin (at least 3-4 pens) and possibly numerous other drugs to include Benadryl and ETOH in an effort to end her life. Patient carries a previous hx/o similar attempt in the past. Her indicated that she may have done so at midnight. When her woke up and checked on her at about 5:30 AM, she was unresponsive and barely breathing. It was unclear however what triggers it but her believed it may be due to her children not talking to her. Paramedics did check her glucose but the meter would not read her glucose so she was given D50 until she was brought to ED for further evaluation. In ED, she remained unresponsive with worsening respiratory status and therefore she required immediate intubation. Her initial work up in ED shows a CBC significant for RBC of 3.48, MCV of 102.6 , MCH of 35.9, Eosinophils of 0.1%, and Monocyte# of 0.38. Her initial ABG shows a pH of 7.19, pCO2 of 58.7, pO2 of 81, HCO3 of 21.7, O2 Sat of 91.8% on 70 % FiO2, VT 500 with PEEP of 5. Her chemistry is remarkable for BUN of 19, Cr of 1.2, BS of 128, LA of 2.1, Ca of 8.4, Mg of 1.6, AST of 270, ALT of 86, Initial troponin of 0.083, ProBNP of 859, and Albumin of 3.2. Her UDS is pos for Salicylates at 0.4 and MELANI level is 0.18. Patient was admitted for AMS, Respiratory Failure, Hypoglycemia and Suicide Attempted Via Insulin Injection. Diagnosis: Stroke: No - Discharge Data Discharge Date: 06/04/18 (Admit date: 05/27/18) Discharge Disposition: DC/Tfer to Acute Hospital 02 Condition: Stable - Discharge Diagnosis/Problem(s) (1) Intentional overdose of drug by injectable substance SNOMED Code(s): 549507804 ICD Code: T50.902A - POISONING BY UNSP DRUG/MEDS/BIOL SUBST, SELF-HARM, INIT Status: Acute Priority: High Current Visit: Yes (2) Alcohol abuse SNOMED Code(s): 73212981 ICD Code: F10.10 - ALCOHOL ABUSE, UNCOMPLICATED Status: Acute Priority: Medium Current Visit: No (3) Altered mental status SNOMED Code(s): 320897249 ICD Code: R41.82 - ALTERED MENTAL STATUS, UNSPECIFIED Status: Acute Priority: High Current Visit: Yes Qualifiers: Altered mental status type: persistent vegetative state Qualified Code(s): R40.3 - Persistent vegetative state (4) Anoxic brain damage Status: Acute Priority: High Current Visit: Yes - Patient Summary/Data Consults: Consultations 05/27/18 08:48 Consult to Case Management/Reception Agent [CONS] Routine Respiratory Care Assess and Treatment [CONS] Routine 06/01/18 12:02 Consult to Physician [CONS] Routine Labs Pending at D/C: None Hospital Course: Assessment/Plan: Acute: Anoxic Brain Injury - She appears to be in a semi-vegetative state - She was out for unknown duration; deprived of glucose and +/- O2 plus she was also intoxicated - Severity unclear at this point; only time will tell - Unable to perform neuro exam due to inability to follow simple commands - Brain MRI report reads nothing acute is appreciated - EEG completed - Spoke to Dr. Connolly on-call Neurologist in [facility] and discussed case with him. He recommends to wait a few more days; if she does not recover cognitively then we would address nutritional status and possibly correction rather than stroker rehab Permissive Hyperglycemia - BS fluctuates in the 200s-300s - She is unable to take food orally due to AMS; offered food but stares at it - Continue D5W 0.9NS but at 75cchr -> decrease to 50mL/Hr - Continue Low dose ISS -> increase to medium dose SS Malnutrition/Nutritional Status - Has been NPO since admission - Consulted Dr. Melo and Dr. Caban, General surgeons for PEG placement - unable to obtain locally 2/2 gastric bypass -They recommend transfer and possible IR consult Hypomagnesemia - Mg 1.6-->1.8-->1.4 - 2/2 NPO status - Replete and monitor Malignant HTN - Carries a hx/o HTN - Documented BP of 203/132 and 148/102 mmHg - Now improved - Unable to resume home BP meds 2/2 AMS - PRN anti-hypertensive agents Resolved: S/p Respiratory Failure w/ Possible Associated Aspiration - 2/2 AMS and Not able to Protect her Airway - ABG shows pH of 7.19, pCO2 of 58.7, pO2 of 81, HCO3 of 21.7, O2 Sat of 91.8 on Vent; her repeat ABG looks good plan for extubation after morning rounds today - Initial Vent Setting: AC 500/VT, 16/RR, 5/PEEP on 80% FiO2; now AC 500/12/5 /30% - IV Unasyn for Aspiration Syndrome coverage - Sedation vacation with plan for extubation S/p Severe Hypoglycemia - Iatrogenic from significant amount of insulin she took - Hypoglycemia protocol plus on dextrose IV fluids - Continue routine accu-check S/p Positive Troponin W/ Prolonged QT - Likely 2/2 Demand Ischemia - Malignant Hypertensive on presentation - CKMB is negative - Serial EKGs and will continue to monitor S/p Suicide Attempt via OD of Insulin - Carries a hx/o it in the past - Took for pens of LA insulin - She has received dextrose en route and while in ED - She is currently on D5W for maintenance; will continue it - Accu-check Q1H and may change to [id number] as needed - 1:1 care once off vent - Tele-psych and SAC consult when appropriate S/P Mild Renal Insufficiency - 2/2 NPO status - Bolus 500 ml of NS x1 Chronic: Impaired Vision HTN Asthma GERD Hx/o Pancreatitis Fibroids OA/DJD Hx/o Suicide Attempt Depression DM1 and MANOJ Plan: She is essentially the same today Aspiration Precaution Accu-check Q6H Continue IV Thiamine DVT/GI PPx: Lovenox SQ/PPI Continue routine Accu-check w/ hypoglycemia protocol SW/CM for d/c planning for possible NS vs stroke rehab placement Code status: 1 LOS > 96 hrs due to pending NH placement and the need for possible PEG tube placement Nkechi presented to our facility on 05/27/18 after being found down in her home. It is reported she took a total 3 of her insulin pens and also possibly some other sleeping pills in an attempt to end her life. She is well-known to our facility having attempted similar acts in the past. She is also a known alcoholic. It is reported that she had a falling out with her children and that is what set her off. She was given dextrose in route to our facility and in our facility. She was also intubated. There was concerns over aspiration so she was given Unasyn for this. She was eventually weaned off her medications and did begin breathing on her own, at which point ET tube was removed. Since that time she has essentially been in a semi-vegetative state. Per facility policy she did have one-to-one care secondary to her attempted suicide. This was discontinued yesterday, 06/03/2018. MRI and CT scan were obtained showing nothing acute. EEG was obtained and interpreted by Dr. Becker, neurologist, as "This EEG can be seen in a patient who is drowsy. There was no sign of anoxic encephalopathy. However, this can be seen in post anoxic brain as seeing the patient have so-called alpha coma. There were no definite epileptiform discharges seen. So further clinical correlation is needed for definitive diagnosis. Repeat of the EEG is recommended if clinically indicated or to follow the brain activity." She has had minimal to no progress throughout the course of her stay. She will occasionally track and follow you with her eyes and other times she will not look at you when you say her name. She did appear to follow commands with her left arm and leg making a very minimal attempt to squeeze her left hand when asked or pushup against resistance on her left leg when asked. She was able to hold her arms out for a short period of time. At other times she is completely unable to follow commands. He has been nonverbal. We attempted to elicit some reaction by placing a cracker in her hand to see if she would eat it and she did not even snuff grinder cracker. She is now on day 8 of nothing by mouth status. She remains a full code. She has been hypertensive and at times tachycardic with HR in the low 100s. He was given IV metoprolol and hydralizine for this. She was also noted to have urinary retention the past few days with volumes of 500-1L observed on bladder scan. She was straight cath'ed and ultimately a avalos was placed. Her was contacted and he would like a PEG tube placed for feedings. We discussed TPN although this would not be a long-term solution. Dr. Melo and Dr. Caban were consulted and do not feel a PEG tube can be placed here safely as she is status post gastric bypass. Dr. Caban suggested IR may be able to assist in this placement. [facility] one call was contacted and report was given to Dr. Del Castillo. Attempted to reach on-call interventional radiologist, Dr. Lombardi, however she had just scrubbed in. Dr. Del Castillo excepts patient transfer. This was related to patient's who reported he approved transfer. Transfer orders are signed. She will be transferred to [facility] via [facility] ground ambulance. - Patient Instructions Diet: NPO Activity: Bedrest - Discharge Plan *PRESCRIPTION DRUG MONITORING PROGRAM REVIEWED*: Not Applicable *COPY OF PRESCRIPTION DRUG MONITORING REPORT IN PATIENT CHRIS: Not Applicable Home Medications: Home Meds Insulin Detemir [Levemir] 30 unit SUBCUT 05/27/18 [History] Insulin Glarg,Human.Rec.Analog [Lantus Solostar] 30 units SUBCUT QAM 05/27/18 [ History] Lisinopril [Zestril] 40 mg PO DAILY 05/27/18 [History] Oxygen Therapy Mode: Room Air Patient Handouts: Alcohol Use Disorder Forms: ED Department Discharge Referrals: Hema Negrete MD [Primary Care Provider] - - Discharge Summary/Plan Comment DC Time >30 min.: Yes (60 Minutes ) - General Info Date of Service: 06/04/18 Admission Dx/Problem (Free Text: Admission Diagnosis/Problem Admission Diagnosis/Problem Intentional overdose of drug by injectable substance Functional Status: Reports: Pain Controlled (Per nursing no apparent pain ), Urinating. Denies: Tolerating Diet (NPO ), Ambulating, New Symptoms - Review of Systems General: Denies: Fever Pulmonary: Denies: Cough Cardiovascular: Denies: Edema Gastrointestinal: Denies: Diarrhea, Vomiting Skin: Denies: Cyanosis - Patient Data Vitals - Most Recent: Last Vital Signs Temp 99.9 F 06/04/18 08:16 Pulse 106 H 06/04/18 08:16 Resp 14 06/04/18 08:16 BP 140/82 06/04/18 08:16 Pulse Ox 97 06/04/18 08:16 Weight - Most Recent: 189 lb 9.6 oz I&O - Last 24 hours: Intake & Output 06/03/18 06/04/18 06/04/18 22:59 06:59 14:59 Intake Total 1100 543 Output Total 875 1300 Balance 225 -757 Lab Results - Last 24 hrs: Laboratory Results - last 24 hr 06/03/18 06/04/18 06/04/18 Range/Units 17:59 00:34 05:57 WBC 4.04 (3.98-10.04) K/mm3 RBC 2.67 L (3.98-5.22) M/mm3 Hgb 9.5 L (11.2-15.7) gm/L Hct 29.3 L (34.1-44.9) % MCV 109.7 H (79.4-94.8) fl MCH 35.6 H (25.6-32.2) pg MCHC 32.4 (32.2-35.5) g/dl RDW Std Deviation 47.3 H (36.4-46.3) fL Plt Count 223 (182-369) K/mm3 MPV 9.9 (9.4-12.3) fl Neut % (Auto) 61.6 (34.0-71.1) % Lymph % (Auto) 20.3 (19.3-51.7) % Larue % (Auto) 14.4 H (4.7-12.5) % Eos % (Auto) 2.2 (0.7-5.8) Baso % (Auto) 0.5 (0.1-1.2) % Neut # (Auto) 2.49 (1.56-6.13) K/mm3 Lymph # (Auto) 0.82 L (1.18-3.74) K/mm3 Larue # (Auto) 0.58 H (0.24-0.36) K/mm3 Eos # (Auto) 0.09 (0.04-0.36) K/mm3 Baso # (Auto) 0.02 (0.01-0.08) K/mm3 Manual Slide Review Abnormal smear Sodium (136-145) mEq/L Potassium (3.5-5.1) mEq/L Chloride (98-107) mEq/L Carbon Dioxide (21-32) mEq/L Anion Gap (5-15) BUN (7-18) mg/dL Creatinine (0.55-1.02) mg/dL Est Cr Clr Drug Dosing mL/min Estimated GFR (MDRD) (>60) mL/min BUN/Creatinine Ratio (14-18) Glucose (74-106) mg/dL POC Glucose 314 H 204 H (70-105) mg/dL Calcium (8.5-10.1) mg/dL Magnesium (1.8-2.4) mg/dl 06/04/18 06/04/18 06/04/18 Range/Units 05:57 05:57 06:02 WBC (3.98-10.04) K/mm3 RBC (3.98-5.22) M/mm3 Hgb (11.2-15.7) gm/L Hct (34.1-44.9) % MCV (79.4-94.8) fl MCH (25.6-32.2) pg MCHC (32.2-35.5) g/dl RDW Std Deviation (36.4-46.3) fL Plt Count (182-369) K/mm3 MPV (9.4-12.3) fl Neut % (Auto) (34.0-71.1) % Lymph % (Auto) (19.3-51.7) % Larue % (Auto) (4.7-12.5) % Eos % (Auto) (0.7-5.8) Baso % (Auto) (0.1-1.2) % Neut # (Auto) (1.56-6.13) K/mm3 Lymph # (Auto) (1.18-3.74) K/mm3 Larue # (Auto) (0.24-0.36) K/mm3 Eos # (Auto) (0.04-0.36) K/mm3 Baso # (Auto) (0.01-0.08) K/mm3 Manual Slide Review Sodium 143 (136-145) mEq/L Potassium 3.9 (3.5-5.1) mEq/L Chloride 111 H (98-107) mEq/L Carbon Dioxide 20 L (21-32) mEq/L Anion Gap 15.9 H (5-15) BUN 9 (7-18) mg/dL Creatinine 0.9 (0.55-1.02) mg/dL Est Cr Clr Drug Dosing 77.48 mL/min Estimated GFR (MDRD) > 60 (>60) mL/min BUN/Creatinine Ratio 10.0 L (14-18) Glucose 182 H (74-106) mg/dL POC Glucose 191 H (70-105) mg/dL Calcium 8.4 L (8.5-10.1) mg/dL Magnesium 1.7 L (1.8-2.4) mg/dl 06/04/18 Range/Units 11:20 WBC (3.98-10.04) K/mm3 RBC (3.98-5.22) M/mm3 Hgb (11.2-15.7) gm/L Hct (34.1-44.9) % MCV (79.4-94.8) fl MCH (25.6-32.2) pg MCHC (32.2-35.5) g/dl RDW Std Deviation (36.4-46.3) fL Plt Count (182-369) K/mm3 MPV (9.4-12.3) fl Neut % (Auto) (34.0-71.1) % Lymph % (Auto) (19.3-51.7) % Larue % (Auto) (4.7-12.5) % Eos % (Auto) (0.7-5.8) Baso % (Auto) (0.1-1.2) % Neut # (Auto) (1.56-6.13) K/mm3 Lymph # (Auto) (1.18-3.74) K/mm3 Larue # (Auto) (0.24-0.36) K/mm3 Eos # (Auto) (0.04-0.36) K/mm3 Baso # (Auto) (0.01-0.08) K/mm3 Manual Slide Review Sodium (136-145) mEq/L Potassium (3.5-5.1) mEq/L Chloride (98-107) mEq/L Carbon Dioxide (21-32) mEq/L Anion Gap (5-15) BUN (7-18) mg/dL Creatinine (0.55-1.02) mg/dL Est Cr Clr Drug Dosing mL/min Estimated GFR (MDRD) (>60) mL/min BUN/Creatinine Ratio (14-18) Glucose (74-106) mg/dL POC Glucose 229 H (70-105) mg/dL Calcium (8.5-10.1) mg/dL Magnesium (1.8-2.4) mg/dl Med Orders - Current: Current Medications Acetaminophen (Tylenol) 650 mg PO Q4H PRN PRN Reason: Pain (Mild 1-3)/fever Hydrocodone Bitart/Acetaminophen ([place] 325-5 Mg) 1 tab PO Q4H PRN PRN Reason: Pain (moderate 4-6) Albuterol/Ipratropium (Duoneb 3.0-0.5 Mg/3 Ml) 3 ml NEB Q4H PRN PRN Reason: Shortness Of Breath/wheezing Bisacodyl (Dulcolax) 5 mg PO DAILY PRN PRN Reason: Constipation Dextrose/Water (Dextrose 50% In Water) 50 ml IVPUSH ASDIRECTED PRN PRN Reason: Hypoglycemia Last Admin: 05/28/18 23:08 Dose: 25 ml Docusate Sodium (Colace) 100 mg PO BID PRN PRN Reason: Constipation Enoxaparin Sodium (Lovenox) 40 mg SUBCUT DAILY [facility] Last Admin: 06/04/18 10:00 Dose: 40 mg Hydralazine HCl (Apresoline) 20 mg IVPUSH Q4H PRN PRN Reason: Hypertension Last Admin: 06/04/18 04:14 Dose: 20 mg Hydromorphone HCl (Dilaudid) 0.25 mg IVPUSH Q2H PRN PRN Reason: Pain (severe 7-10) Promethazine HCl 6.25 mg/ (Sodium Chloride) 50.25 mls @ 100 mls/hr IV Q6H PRN PRN Reason: Nausea/Vomiting Potassium Chloride/Dextrose/Sod Cl (D5 Ns With 20 Meq Kcl) 1,000 mls @ 50 mls/ hr IV ASDIRECTED [facility] Last Admin: 06/04/18 11:27 Dose: 50 mls/hr Insulin Human Lispro (Humalog) 0 unit SUBCUT Q6HR [facility]; Protocol Last Admin: 06/04/18 12:19 Dose: 4 units Lorazepam (Ativan) 2 mg IVPUSH Q4H PRN PRN Reason: Seizures Lorazepam (Ativan) 0.5 mg IVPUSH Q4H PRN PRN Reason: Anxiety Last Admin: 06/03/18 03:24 Dose: 0.5 mg Magnesium Sulfate (Pharmacy To Dose - Magnesium Replacement) 0 dose .XX ASDIRECTED PRN PRN Reason: RX TO WATCH MAG Metoprolol Tartrate (Lopressor) 5 mg IVPUSH Q4H PRN PRN Reason: Tachycardia Last Admin: 06/02/18 17:41 Dose: 5 mg Ondansetron HCl (Zofran) 4 mg IV Q6H PRN PRN Reason: Nausea/Vomiting Pantoprazole Sodium (Protonix Iv) 40 mg IVPUSH Q12H [facility] Last Admin: 06/04/18 04:05 Dose: 40 mg Potassium Chloride (Pharmacy To Dose - Potassium Replacement) 0 dose .XX ASDIRECTED PRN PRN Reason: RX TO WATCH K Senna/Docusate Sodium (Senna Plus) 1 tab PO BID PRN PRN Reason: Constipation Sodium Chloride (Sodium Chloride 0.9%) 3 ml INH ASDIRECTED PRN PRN Reason: mix with racepinephrine neb Discontinued Medications Chlordiazepoxide HCl (Librium) 25 mg PO Q8H PRN PRN Reason: Withdrawal Symptoms Clonidine HCl (Catapres-Tts 3) 0.3 mg TRDERM Q7D ONE Stop: 05/27/18 09:01 Last Admin: 05/27/18 09:59 Dose: Not Given Clonidine HCl (Catapres) 0.1 mg PO Q4H PRN PRN Reason: Agitation Dextrose/Water (Dextrose 50% In Water) Confirm Administered Dose 50 ml .ROUTE .STK-MED ONE Stop: 05/27/18 06:23 Last Admin: 05/27/18 14:53 Dose: Not Given Dextrose/Water (Dextrose 50% In Water) Confirm Administered Dose 50 ml .ROUTE .STK-MED ONE Stop: 05/27/18 13:07 Last Admin: 05/27/18 13:12 Dose: Not Given Dextrose/Water (Dextrose 50% In Water) 50 ml IVPUSH ASDIRECTED PRN PRN Reason: Hypoglycemia Diazepam (Valium) 3 mg IV ONETIME ONE Stop: 05/30/18 08:04 Last Admin: 05/30/18 08:16 Dose: 3 mg Haloperidol Lactate (Haldol) Confirm Administered Dose 5 mg .ROUTE .STK-MED ONE Stop: 05/29/18 14:01 Last Admin: 05/29/18 14:50 Dose: Not Given Haloperidol Lactate (Haldol) 2 mg IVPUSH ONETIME ONE Stop: 05/29/18 14:01 Last Admin: 05/29/18 14:00 Dose: 2 mg Haloperidol Lactate (Haldol) 1 mg IVPUSH ONETIME ONE Stop: 05/29/18 14:21 Last Admin: 05/29/18 14:57 Dose: 1 mg Dextrose/Sodium Chloride (Dextrose 5%-Normal Saline) Confirm Administered Dose 1 ,000 mls @ as directed .ROUTE .[facility]-MED ONE Stop: 05/27/18 05:55 Last Admin: 05/27/18 14:53 Dose: Not Given Propofol (Diprivan 100 Ml) Confirm Administered Dose 100 mls @ as directed .ROUTE .[facility] ONE Stop: 05/27/18 06:16 Last Admin: 05/27/18 14:53 Dose: Not Given Dextrose/Sodium Chloride (Dextrose 5%-Normal Saline) Confirm Administered Dose 1 ,000 mls @ as directed .ROUTE .[facility] ONE Stop: 05/27/18 07:00 Last Admin: 05/27/18 14:53 Dose: Not Given Propofol (Diprivan 100 Ml) Confirm Administered Dose 100 mls @ as directed .ROUTE .[facility] ONE Stop: 05/27/18 08:21 Last Admin: 05/27/18 10:33 Dose: Not Given Ampicillin Sodium/Sulbactam (Sodium 3 gm/ Sodium Chloride) 100 mls @ 200 mls/ hr IV Q6H [facility] Last Admin: 05/28/18 18:58 Dose: 200 mls/hr Ceftriaxone Sodium 1 gm/ (Sodium Chloride) 100 mls @ 200 mls/hr IV Q24H [facility] Last Admin: 05/27/18 14:54 Dose: Not Given Magnesium Sulfate 2 gm/ Premix 50 mls @ 25 mls/hr IV ONETIME ONE Stop: 05/27/18 11:14 Last Admin: 05/27/18 10:30 Dose: 25 mls/hr Propofol (Diprivan 100 Ml) 100 mls @ 0.9 mls/hr IV TITRATE [facility]; Protocol Last Titration: 05/28/18 13:15 Dose: 0 mcg/kg/min, 0 mls/hr Dextrose/Sodium Chloride (Dextrose 5%-Normal Saline) 1,000 mls @ 125 mls/hr IV ASDIRECTED [facility] Last Infusion: 05/27/18 14:55 Dose: 200 mls/hr Dextrose/Sodium Chloride (Dextrose 5%-Normal Saline) Confirm Administered Dose 1 ,000 mls @ as directed .ROUTE .STK-MED ONE Stop: 05/27/18 12:33 Last Admin: 05/27/18 13:05 Dose: Not Given Dextrose/Sodium Chloride (Dextrose 5%-Normal Saline) 1,000 mls @ 150 mls/hr IV ASDIRECTED [facility] Dextrose/Sodium Chloride (Dextrose 5%-Normal Saline) 1,000 mls @ 200 mls/hr IV ASDIRECTED [facility] Dextrose/Water (Dextrose 10% In Water) 500 mls @ 150 mls/hr IV ASDIRECTED [facility] Last Infusion: 05/27/18 19:10 Dose: 200 mls/hr Dextrose/Water (Dextrose 10% In Water) 1,000 mls @ 300 mls/hr IV ASDIRECTED [facility] Last Admin: 05/28/18 00:03 Dose: 300 mls/hr Potassium Chloride (Kcl 10 Meq In Water 100 Ml) 100 mls @ 100 mls/hr IV Q1H [facility] Stop: 05/28/18 03:59 Last Admin: 05/28/18 04:03 Dose: 100 mls/hr Magnesium Sulfate (Magnesium Sulfate 2 Gm In Water 50 Ml) 50 mls @ 25 mls/hr IV ONETIME ONE Stop: 05/28/18 00:14 Last Admin: 05/27/18 23:16 Dose: 25 mls/hr Dextrose/Water (Dextrose 10% In Water) 500 mls @ 300 mls/hr IV ASDIRECTED [facility] Last Admin: 05/29/18 13:26 Dose: 300 mls/hr Magnesium Sulfate 4 gm/ Premix 100 mls @ 25 mls/hr IV ONETIME ONE Stop: 05/28/18 13:59 Last Admin: 05/28/18 10:54 Dose: 25 mls/hr Magnesium Sulfate 4 gm/ Premix 100 mls @ 25 mls/hr IV ONETIME ONE Stop: 05/29/18 15:59 Last Admin: 05/29/18 11:01 Dose: 25 mls/hr Potassium Chloride 10 meq/ (Premix) 100 mls @ 100 mls/hr IV Q1H [facility] Stop: 05/29/18 15:59 Last Admin: 05/29/18 14:50 Dose: 100 mls/hr Thiamine HCl 100 mg/ Sodium (Chloride) 51 mls @ 100 mls/hr IV DAILY [facility] Stop: 05/31/18 09:31 Dextrose/Water (Dextrose 10% In Water) 1,000 mls @ 150 mls/hr IV ASDIRECTED [facility] Last Infusion: 05/30/18 18:31 Dose: 100 mls/hr Magnesium Sulfate 4 gm/ Premix 100 mls @ 25 mls/hr IV ONETIME ONE Stop: 05/30/18 11:59 Last Admin: 05/30/18 09:26 Dose: 25 mls/hr Dextrose/Water (Dextrose 10% In Water) 1,000 mls @ 100 mls/hr IV ASDIRECTED [facility] Last Infusion: 05/31/18 07:30 Dose: 75 mls/hr Dextrose/Sodium Chloride (Dextrose 5%-Normal Saline) 1,000 mls @ 100 mls/hr IV ASDIRECTED [facility] Last Admin: 06/01/18 09:07 Dose: 100 mls/hr Sodium Chloride (Normal Saline) 500 mls @ 999 mls/hr IV .BOLUS ONE Stop: 06/01/18 08:07 Last Admin: 06/01/18 08:14 Dose: 999 mls/hr Magnesium Sulfate 4 gm/ Premix 100 mls @ 25 mls/hr IV ONETIME ONE Stop: 06/01/18 14:29 Last Admin: 06/01/18 11:40 Dose: 25 mls/hr Potassium Chloride/Dextrose/Sod Cl (D5 Ns With 20 Meq Kcl) 1,000 mls @ 75 mls/ hr IV ASDIRECTED [facility] Last Admin: 06/03/18 00:03 Dose: 75 mls/hr Magnesium Sulfate 4 gm/ Premix 100 mls @ 25 mls/hr IV ONETIME ONE Stop: 06/03/18 13:29 Last Admin: 06/03/18 09:45 Dose: 25 mls/hr Magnesium Sulfate 2 gm/ Premix 50 mls @ 25 mls/hr IV ONETIME ONE Stop: 06/04/18 10:59 Last Admin: 06/04/18 09:59 Dose: 25 mls/hr Insulin Human Lispro (Humalog) 0 unit SUBCUT Q6H [facility]; Protocol Last Admin: 05/31/18 07:34 Dose: Not Given Insulin Human Lispro (Humalog) 0 unit SUBCUT Q6HR [facility]; Protocol Last Admin: 06/04/18 06:25 Dose: 2 units Lorazepam (Ativan) 1 mg IV Q6H PRN PRN Reason: Anxiety Last Admin: 05/29/18 13:50 Dose: 1 mg Lorazepam (Ativan) 1 mg IVPUSH ONETIME ONE Stop: 05/29/18 14:11 Last Admin: 05/29/18 14:10 Dose: 1 mg Lorazepam (Ativan) 0 mg IV Q4H PRN; Protocol PRN Reason: Withdrawal Symptoms Last Admin: 06/01/18 00:16 Dose: 1 mg Lorazepam (Ativan) 0 mg IV ASDIRECTED [facility]; Protocol Last Admin: 06/01/18 18:02 Dose: 1 mg Midazolam HCl (Versed 5 Mg/Ml) 50 mg .ROUTE .STK-MED ONE Stop: 05/27/18 05:51 Midazolam HCl (Versed 1 Mg/Ml) 10 mg .ROUTE .STK-MED ONE Stop: 05/27/18 05:51 Modafinil (Provigil) 200 mg PO NOW STA Stop: 05/28/18 13:29 Last Admin: 05/28/18 13:44 Dose: 200 mg Modafinil (Provigil) 200 mg PO DAILY [facility] Stop: 05/29/18 08:01 Last Admin: 05/29/18 08:40 Dose: Not Given Racepinephrine (S-2 2.25%) 0.5 ml NEB ONETIME ONE Stop: 05/28/18 13:24 Last Admin: 05/28/18 13:33 Dose: 0.5 ml Racepinephrine (S-2 2.25%) Confirm Administered Dose 0.5 ml .ROUTE .STK-MED ONE Stop: 05/28/18 13:27 Last Admin: 05/28/18 13:33 Dose: Not Given Saccharomyces Boulardii (Florastor) 250 mg PO BID [facility] Stop: 05/30/18 09:01 Last Admin: 05/30/18 09:26 Dose: Not Given Succinylcholine Chloride (Quelicin) 200 mg .ROUTE .STK-MED ONE Stop: 05/27/18 05:51 Temazepam (Restoril) 7.5 mg PO BEDTIME PRN PRN Reason: Sleep Thiamine HCl (Vitamin B-1) 100 mg IV ONETIME ONE Stop: 05/29/18 07:46 Last Admin: 05/29/18 08:38 Dose: 100 mg Thiamine HCl (Vitamin B-1) 100 mg IVPUSH DAILY MAGO Stop: 05/31/18 09:01 Last Admin: 05/31/18 08:18 Dose: 100 mg Vecuronium [place] (Vecuronium) 10 mg .ROUTE .STK-MED ONE Stop: 05/27/18 05:51 - Exam Quality Assessment: Reports: Urine Catheter, DVT Prophylaxis. Denies: Supplemental Oxygen General: Reports: Alert (occasionally ), No Acute Distress, Other (semi- vegitative state ). Denies: Oriented HEENT: Reports: Pupils Equal, Pupils Reactive, EOMI, Mucous Membr. Moist/[place] Neck: Reports: Supple, Trachea Midline Lungs: Reports: Clear to Auscultation, Normal Respiratory Effort Cardiovascular: Reports: Regular Rate, Tachycardia GI/Abdominal Exam: Normal Bowel Sounds, Soft, No Distention (Female) Exam: Deferred Rectal (Female) Exam: Deferred Extremities: Normal Inspection, No Pedal Edema, Normal Capillary Refill Skin: Reports: Warm, Dry, Intact Neurological: Reports: No New Focal Deficit
[2018-06-04 14:23] VITALS: BP 127/90
== END 2018-06-04 14:58 | DRG 812 ==
LOC: JD.ED 05:47 → JD.ICU 07:55 → JD.MS 05-31 15:03
PROVIDERS: ADMIT Internal Medicine; ATTEND Internal Medicine
PROC: 5A1935Z Respiratory Ventilation, Less than 24 Consecutive Hours (ICD-10-PCS; principal; 2018-05-27)
PROC: 0D9670Z Drainage of Stomach with Drainage Device, Via Natural or Artificial Opening (ICD-10-PCS; 2018-05-27)
PROC: 0BH17EZ Insertion of Endotracheal Airway into Trachea, Via Natural or Artificial Opening (ICD-10-PCS; 2018-05-27)
DX: T38.3X2A Poisoning by insulin and oral hypoglycemic [antidiabetic] drugs, intentional self-harm, initial encounter (principal); J96.90 Respiratory failure, unspecified, unspecified whether with hypoxia or hypercapnia; G92 Toxic encephalopathy; G93.1 Anoxic brain damage, not elsewhere classified; E46 Unspecified protein-calorie malnutrition; E10.8 Type 1 diabetes mellitus with unspecified complications; I24.8 Other forms of acute ischemic heart disease; E83.42 Hypomagnesemia; T17.918A Gastric contents in respiratory tract, part unspecified causing other injury, initial encounter; T45.0X2A Poisoning by antiallergic and antiemetic drugs, intentional self-harm, initial encounter; T51.0X2A Toxic effect of ethanol, intentional self-harm, initial encounter; I10 Essential (primary) hypertension; J45.909 Unspecified asthma, uncomplicated; K21.9 Gastro-esophageal reflux disease without esophagitis; N28.9 Disorder of kidney and ureter, unspecified; G47.00 Insomnia, unspecified; F41.9 Anxiety disorder, unspecified; M19.90 Unspecified osteoarthritis, unspecified site; F10.20 Alcohol dependence, uncomplicated; E87.6 Hypokalemia; R33.9 Retention of urine, unspecified; D50.9 Iron deficiency anemia, unspecified; F32.9 Major depressive disorder, single episode, unspecified; H54.7 Unspecified visual loss; Z68.27 Body mass index [BMI] 27.0-27.9, adult; Z87.440 Personal history of urinary (tract) infections; Z79.4 Long term (current) use of insulin; Z98.84 Bariatric surgery status; Z88.7 Allergy status to serum and vaccine; Z90.710 Acquired absence of both cervix and uterus; Z86.010 Personal history of colon polyps; Z90.49 Acquired absence of other specified parts of digestive tract; Z79.82 Long term (current) use of aspirin; Z79.899 Other long term (current) drug therapy
CPT/HCPCS: 31500; 36415; 36600; 51701; 51702; 51798; 70450; 70450-26; 70551; 70551-26; 71045; 71045-26; 80048; 80053; 80306; 82553; 82803; 82947; 82962; 83605; 83735; 83880; 84484; 85025; 85610; 85730; 86140; 93005; 94150; 94640; 95816; 96365; 96375; 99291; 99292; A9270-GY; C9113; G0480; J0295; J0330; J0360; J1630; J1650; J1815-GY; J2060; J2250; J2704; J3360; J3411; J3475; J3480; J3490; J7030; J7040; J7042; J7060

== ENCOUNTER 2018-10-05 11:42 | Emergency (ER) | payer BC ==
[2018-10-05] MEDS ORDERED: Sodium Chloride 0.9% 10 ML Syringe FLUSH PRN (13:34)
--- NOTE | 2018-10-05 13:43 | EDM.PDOC ---
ED HPI GENERAL MEDICAL PROBLEM - General Chief Complaint: Upper Extremity Injury/Pain Stated Complaint: FELL, WEAK ON LEFT SIDE Time Seen by Provider: 10/05/18 11:55 Source of Information: Reports: Patient, Family History Limitations: Reports: No Limitations - History of Present Illness INITIAL COMMENTS - FREE TEXT/NARRATIVE: The patient presents with left arm pain, left leg pain, head and neck pain. She says last night she fell. She tripped over her legs. She does have a headache and neck pain. She does not think she was knocked out. She has left arm pain and left leg pain but her noticed she had right leg pain. She did not want to walk. She was also week. He noticed she was leaning to the left side. She has generalized weakness but no fever, chills, cough, chest pain , shortness of breath, abdominal pain, nausea or vomiting. [place] [facility] [place] overdosed on her insulin to try to kill herself. Onset: Sudden Duration: Day(s): (Last night) Location: Reports: Head, Neck, Upper Extremity, Left, Lower Extremity, Left, Lower Extremity, Right Quality: Reports: Sharp Severity: Moderate Improves with: Reports: None Worsens with: Reports: None Associated Symptoms: Reports: No Other Symptoms - Related Data Allergies Allergy/AdvReac Type Severity Reaction Status Date / Time Influenza Virus Vaccines Allergy Itching Verified 10/05/18 11:57 pneumococcal vaccine Allergy Redness Verified 10/05/18 11:57 Home Meds: Home Meds Bisacodyl [Dulcolax] 10 mg RECTAL DAILY PRN 10/05/18 [History] Docusate Sodium [Colace] 100 mg PO BID PRN 10/05/18 [History] Ferrous Sulfate [Feosol] 325 mg PO DAILY 10/05/18 [History] Insulin Aspart [NovoLOG] 0 units SQ QID 10/05/18 [History] Insulin Aspart [NovoLOG] 4 units SQ TIDMEALS 10/05/18 [History] Insulin Glarg,Human.Rec.Analog [Lantus] 12 units SQ DAILY 10/05/18 [History] Melatonin 3 mg PO BEDTIME 10/05/18 [History] Nystatin 1 applic TOP BID PRN 10/05/18 [History] amLODIPine [Norvasc] 5 mg PO DAILY 10/05/18 [History] cloNIDine [Catapres-TTS 1] 0.1 mg TOP WEEKLY 10/05/18 [History] Past Medical History HEENT History: Reports: Impaired Vision Other HEENT History: wear glasses Cardiovascular History: Reports: Hypertension Respiratory History: Reports: Asthma Gastrointestinal History: Reports: GERD, Pancreatitis Genitourinary History: Reports: UTI, Recurrent INSPECTOR AND UNLOADER History: Reports: Fibroids, Other (See Below) Other INSPECTOR AND UNLOADER History: hysterectomy with overies intact Musculoskeletal History: Reports: Other (See Below) Other Musculoskeletal History: pt takes lyrica for pain Neurological History: Reports: None Psychiatric History: Reports: Depression, Suicide Attempt Endocrine/Metabolic History: Reports: Diabetes, Type I Other Endocrine/Metabolic History: recent weight gain Hematologic History: Reports: Iron Deficiency Other Oncologic History: colon polups Dermatologic History: Reports: None - Infectious Disease History Infectious Disease History: Reports: Chicken Pox - Past Surgical History Cardiovascular Surgical History: Reports: None GI Surgical History: Reports: Appendectomy, Bariatric Procedure, Cholecystectomy Female Surgical History: Reports: Hysterectomy, Other (See Below) Neurological Surgical History: Reports: None Dermatological Surgical History: Reports: Other (See Below) Social & Family History - Family History Family Medical History: Noncontributory - Tobacco Use Smoking Status *Q: Never Smoker Second Hand Smoke Exposure: No - Caffeine Use Caffeine Use: Reports: Soda Other Caffeine Use: unknown Caffeine Use Comment: unable to assess - Recreational Drug Use Recreational Drug Use: No - Living Situation & Occupation Living situation: Reports: , Other (has children) Occupation: Unemployed Review of Systems - Review of Systems Review Of Systems: See Below Constitutional: Reports: No Symptoms Eyes: Reports: No Symptoms Ears: Reports: No Symptoms Nose: Reports: No Symptoms Mouth/Throat: Reports: No Symptoms Respiratory: Reports: No Symptoms Cardiovascular: Reports: No Symptoms GI/Abdominal: Reports: No Symptoms Genitourinary: Reports: No Symptoms Musculoskeletal: Reports: Shoulder Pain (Left), Other (right and left hip pain) ED EXAM, GENERAL - Physical Exam Exam: See Below Exam Limited By: No Limitations General Appearance: Alert, No Apparent Distress Ears: Normal External Exam Nose: Normal Inspection Head: Atraumatic, Normocephalic Neck: Tender Midline (Mild) Respiratory/Chest: No Respiratory Distress, Lungs Clear, Normal Breath Sounds Cardiovascular: Regular Rate, Rhythm, No Edema, No Murmur GI/Abdominal: Soft, Non-Tender, No Organomegaly, No Mass Extremities: Other (Pain upon palpation to the left and right hip. Good sensation and pulses distally.) Neurological: Alert, Oriented, No Motor/Sensory Deficits Course - Vital Signs Last Recorded V/S: Last Vital Signs Temp 98.5 F 10/05/18 11:52 Pulse 78 10/05/18 14:36 Resp 16 10/05/18 14:36 BP 151/77 H 10/05/18 14:36 Pulse Ox 97 10/05/18 14:36 - Orders/Labs/Meds Orders: Active Orders 24 hr Category Date Time Status Cardiac Monitoring [RC] . DIRECTED Care 10/05/18 12:11 Active Avalos Catheter Insertion [Insert Urinary Catheter] [OM. Care 10/05/18 13:45 Ordered PC] Q24H Peripheral IV Care [RC] . DIRECTED Care 10/05/18 13:34 Active Urinary Catheter Assessment [RC] ASDIRECTED Care 10/05/18 13:37 Active Cervical Spine wo Cont [CT] Stat Exams 10/05/18 12:13 Taken Head wo Cont [CT] Stat Exams 10/05/18 12:12 Taken Hip Min 2V or 3V Rt [CR] Routine Exams 10/05/18 13:11 Ordered Hip Min 2V or 3V w Pelvis Lt [CR] Stat Exams 10/05/18 12:14 Ordered Shoulder Comp Lt [CR] Stat Exams 10/05/18 12:13 Taken CULTURE BLOOD [BC] Stat Lab 10/05/18 16:00 Received CULTURE BLOOD [BC] Stat Lab 10/05/18 16:00 Received CULTURE URINE [RM] Stat Lab 10/05/18 13:53 Received Sodium Chloride 0.9% [Saline Flush] Med 10/05/18 13:34 Active 10 ml FLUSH ASDIRECTED PRN Blood Culture x2 Reflex Set [OM.PC] Stat Oth 10/05/18 15:37 Ordered Peripheral IV Insertion Adult [OM.PC] Routine Oth 10/05/18 13:34 Ordered Medication Orders Sodium Chloride (Saline Flush) 10 ml FLUSH ASDIRECTED PRN PRN Reason: Keep Vein Open Last Admin: 10/05/18 14:13 Dose: 10 ml Labs: Laboratory Tests 10/05/18 10/05/18 10/05/18 Range/Units 13:30 13:30 13:53 WBC 6.89 (3.98-10.04) K/mm3 RBC 2.31 L (3.98-5.22) M/mm3 Hgb 7.4 L D (11.2-15.7) gm/L Hct 21.8 L (34.1-44.9) % MCV 94.4 D (79.4-94.8) fl MCH 32.0 (25.6-32.2) pg MCHC 33.9 (32.2-35.5) g/dl RDW Std Deviation 57.9 H (36.4-46.3) fL Plt Count 212 (182-369) K/mm3 MPV 9.1 L (9.4-12.3) fl Neut % (Auto) 69.5 (34.0-71.1) % Lymph % (Auto) 17.3 L (19.3-51.7) % Franklin % (Auto) 9.6 (4.7-12.5) % Eos % (Auto) 2.9 (0.7-5.8) Baso % (Auto) 0.4 (0.1-1.2) % Neut # (Auto) 4.79 (1.56-6.13) K/mm3 Lymph # (Auto) 1.19 (1.18-3.74) K/mm3 Franklin # (Auto) 0.66 H (0.24-0.36) K/mm3 Eos # (Auto) 0.20 (0.04-0.36) K/mm3 Baso # (Auto) 0.03 (0.01-0.08) K/mm3 Manual Slide Review Abnormal smear Sodium 139 (136-145) mEq/L Potassium 4.7 (3.5-5.1) mEq/L Chloride 106 (98-107) mEq/L Carbon Dioxide 20 L (21-32) mEq/L Anion Gap 17.7 H (5-15) BUN 51 H D (7-18) mg/dL Creatinine 3.7 H D (0.55-1.02) mg/dL Est Cr Clr Drug Dosing 16.90 mL/min Estimated GFR (MDRD) 13 (>60) mL/min BUN/Creatinine Ratio 13.8 L (14-18) Glucose 60 L (74-106) mg/dL Calcium 8.2 L (8.5-10.1) mg/dL Total Bilirubin 0.4 (0.2-1.0) mg/dL AST 16 (15-37) U/L ALT 17 (14-59) U/L Alkaline Phosphatase 106 (46-116) U/L Total Protein 6.0 L (6.4-8.2) g/dl Albumin 1.9 L (3.4-5.0) g/dl Globulin 4.1 gm/dL Albumin/Globulin Ratio 0.5 L (1-2) Urine Color Yellow (Yellow) Urine Appearance Clear (Clear) Urine pH 6.5 (5.0-8.0) Ur Specific [place]rest 1.020 (1.005-1.030) Urine Protein 3+ H (Negative) Urine Glucose (UA) Negative (Negative) Urine Ketones Negative (Negative) Urine Occult Blood 3+ H (Negative) Urine Nitrite Positive H (Negative) Urine Bilirubin Negative (Negative) Urine Urobilinogen 0.2 (0.2-1.0) Ur Leukocyte Esterase 1+ H (Negative) Urine RBC 30-40 H (0-5) /hpf Urine WBC 0-5 (0-5) /hpf Ur Epithelial Cells 0-5 (0-5) /hpf Urine Bacteria Moderate H (FEW) /hpf Urine Mucus Few (FEW) /hpf Meds: Medications Generic Name Dose Route Start Last Admin Trade Name Fabio PRN Reason Stop Dose Admin Sodium Chloride 10 ml 10/05/18 13:34 10/05/18 14:13 Saline Flush FLUSH 10 ml ASDIRECTED PRN Administration Keep Vein Open Discontinued Medications Generic Name Dose Route Start Last Admin Trade Name Fabio PRN Reason Stop Dose Admin Dextrose/Water 50 ml 10/05/18 14:19 10/05/18 14:36 Dextrose 50% In Water IVPUSH 10/05/18 14:20 50 ml ONETIME ONE Administration Ceftriaxone Sodium 2 gm/ 100 mls @ 200 mls/hr 10/05/18 15:38 10/05/18 16:14 Sodium Chloride IV 10/05/18 16:07 200 mls/hr ONETIME ONE Administration - Re-Assessments/Exams Free Text/Narrative Re-Assessment/Exam: 10/05/18 13:45 I ordered an IV saline lock, labs, CT of her head and cervical spine, and x- rays of her shoulder and hips. 10/05/18 16:17 The x-ray of her hip and pelvis shows a right subcapital fracture. Her head CT and cervical spine CTs look good. Her Hgb was low at 7.4. When she was here in May it was 9.5. I did a rectal exam and it was guiac positive. Her anion gap was elevated at 17.7. Her BUN was 51. Her creatinine was elevated at 3.7 with a GFR of 13. She had a normal creatinine in May. Her glucose was 60. I gave her an amp of D50. Her UA shows a UTI. We did put a avalos cath in and got a urine and blood cultures and rocephin. I talked to our hospitalist and he felt it best she go to [place]. I talked with the Hospitalist at [facility] and he accepted the patient. I also talked with Dr Ortega and he is aware of her fracture. Departure - Departure Time of Disposition: 16:25 Disposition: DC/Tfer to [facility] 02 Condition: Fair Clinical Impression: Fall Qualifiers: Encounter type: initial encounter Qualified Code(s): W19.XXXA - Unspecified fall, initial encounter Hip fracture Qualifiers: Encounter type: initial encounter Fracture type: closed Laterality: right Qualified Code(s): S72.001A - Fracture of unspecified part of neck of right femur, initial encounter for closed fracture Renal failure Qualifiers: Renal failure chronicity: acute Acute renal failure type: unspecified Qualified Code(s): N17.9 - Acute kidney failure, unspecified UTI (urinary tract infection) Qualifiers: Urinary tract infection type: acute cystitis Hematuria presence: without hematuria Qualified Code(s): N30.00 - Acute cystitis without hematuria Anemia Qualifiers: Anemia type: unspecified type Qualified Code(s): D64.9 - Anemia, unspecified GI bleed Qualifiers: GI bleed type/associated pathology: unspecified gastrointestinal hemorrhage type Qualified Code(s): K92.2 - Gastrointestinal hemorrhage, unspecified - Discharge Information Referrals: Hema Negrete MD [Primary Care Provider] - Forms: ED Department Discharge - My Orders Last 24 Hours: My Active Orders 10/05/18 12:11 Cardiac Monitoring [RC] . DIRECTED 10/05/18 12:12 Head wo Cont [CT] Stat 10/05/18 12:13 Cervical Spine wo Cont [CT] Stat Shoulder Comp Lt [CR] Stat 10/05/18 12:14 Hip Min 2V or 3V w Pelvis Lt [CR] Stat 10/05/18 13:11 Hip Min 2V or 3V Rt [CR] Routine 10/05/18 13:34 Peripheral IV Care [RC] . DIRECTED Sodium Chloride 0.9% [Saline Flush] 10 ml FLUSH ASDIRECTED PRN Peripheral IV Insertion Adult [OM.PC] Routine 10/05/18 13:37 Urinary Catheter Assessment [RC] ASDIRECTED 10/05/18 13:45 Avalos Catheter Insertion [Insert Urinary Catheter] [OM.PC] Q24H 10/05/18 13:53 CULTURE URINE [RM] Stat 10/05/18 15:37 Blood Culture x2 Reflex Set [OM.PC] Stat 10/05/18 16:00 CULTURE BLOOD [BC] Stat CULTURE BLOOD [BC] Stat - Assessment/Plan Last 24 Hours: My Active Orders 10/05/18 12:11 Cardiac Monitoring [RC] . DIRECTED 10/05/18 12:12 Head wo Cont [CT] Stat 10/05/18 12:13 Cervical Spine wo Cont [CT] Stat Shoulder Comp Lt [CR] Stat 10/05/18 12:14 Hip Min 2V or 3V w Pelvis Lt [CR] Stat 10/05/18 13:11 Hip Min 2V or 3V Rt [CR] Routine 10/05/18 13:34 Peripheral IV Care [RC] . DIRECTED Sodium Chloride 0.9% [Saline Flush] 10 ml FLUSH ASDIRECTED PRN Peripheral IV Insertion Adult [OM.PC] Routine 10/05/18 13:37 Urinary Catheter Assessment [RC] ASDIRECTED 10/05/18 13:45 Avalos Catheter Insertion [Insert Urinary Catheter] [OM.PC] Q24H 10/05/18 13:53 CULTURE URINE [RM] Stat 10/05/18 15:37 Blood Culture x2 Reflex Set [OM.PC] Stat 10/05/18 16:00 CULTURE BLOOD [BC] Stat CULTURE BLOOD [BC] Stat
[2018-10-05] MEDS ORDERED: 50% Dextrose in Water 50 ML Syringe IVPUSH ONE (14:19)
[2018-10-05 14:36] VITALS: BP 151/77
[2018-10-05] MEDS ORDERED: cefTRIAXone 2 GM in Sodium Chloride 0.9% 100 ML IV ONE (15:38)
[2018-10-05] MEDS ORDERED: Sodium Chloride 0.9% 1,000 ML ONE (16:55)
[2018-10-05] MEDS ORDERED: HYDROmorphone 0.5 MG/0.5 ML Syringe ONE (16:57)
[2018-10-05] MEDS ORDERED: HYDROmorphone 0.5 MG/0.5 ML Syringe IVPUSH ONE (17:14)
[2018-10-05] MEDS ORDERED: Sodium Chloride 0.9% 1,000 ML IV SCH (17:15)
--- NOTE | 2018-10-06 07:17 | CR ---
Left shoulder: Four views of the left shoulder were obtained. Comparison: No prior shoulder imaging. Acromioclavicular and glenohumeral joints appear within normal limits. Old healed fracture noted within the left seventh and tenth ribs. No fracture, dislocation or other bony abnormality is identified. Impression: 1. Old healed left-sided rib fractures. 2. No additional abnormality is appreciated on left shoulder exam. Diagnostic code #2
--- NOTE | 2018-10-06 08:01 | CR ---
Pelvis and left hip: AP view of the pelvis was obtained as well as AP and frog-leg lateral views of the left hip. Mildly displaced subcapital fracture within the right hip is again noted. Left hip appears intact. No additional fracture is seen. Mild degenerative sclerosis noted within both sacroiliac joints. Osteopenia is present. Impression: 1. Mildly displaced subcapital fracture within the right hip. 2. Other incidental findings. Diagnostic code #3
--- NOTE | 2018-10-06 09:07 | CT ---
CT cervical spine Technique: Multiple axial sections were obtained from above C1 inferiorly to below T1. Reconstructed sagittal and coronal images were reviewed. Comparison: Prior CT cervical spine exam of 01/10/17. Findings: Mild degenerative change is scattered within the apophyseal joints. Vertebral body heights and disc spaces are maintained. Minimal endplate osteophytes are seen anteriorly at C5-C6 and C6-C7. Lucent lesion with central sclerosis is noted within the dens which is stable from prior exam and most likely represents benign bone lesion. This is believed to be incidental. No acute fracture or abnormal subluxation is seen. Impression: 1. Findings which are believed to be incidental as noted above. Nothing acute is appreciated on CT study of the cervical spine. Diagnostic code #2 I agree with preliminary report from [facility], finalized on 10/05/18, 2:39 PM Central Time
--- NOTE | 2018-10-06 09:07 | CT ---
Head CT Technique: Multiple axial sections through the brain were obtained. Intravenous contrast was not utilized. Comparison: Prior head CT study of 05/27/18. Findings: Ventricles along with basal cisterns and sulci over the convexities are within normal limits for the patient's age. No abnormal parenchymal densities are seen. No evidence of intracranial hemorrhage. No midline shift or mass effect is seen. Bone window settings were reviewed which show the visualized sinuses to appear clear. No acute calvarial abnormality is seen. Impression: 1. Nothing acute is appreciated on noncontrast head CT exam. Diagnostic code #1 I agree with preliminary report from [facility], finalized on 10/05/18, 2:37 PM Central Time
--- NOTE | 2018-10-06 15:04 | CR ---
Right hip: AP and lateral views of the right hip were obtained. Comparison: No prior hip exam. Slightly displaced subcapital fracture noted within the right hip. Bony structures are osteopenic. Minimal degenerative sclerosis seen within the sacroiliac joint. Impression: 1. Slightly displaced subcapital fracture within the right hip. Diagnostic code #3 MTDD
== END 2018-10-05 17:20 ==
LOC: JD.ED 11:42
DX: S72.001A Fracture of unspecified part of neck of right femur, initial encounter for closed fracture (principal); N17.9 Acute kidney failure, unspecified; N30.00 Acute cystitis without hematuria; D64.9 Anemia, unspecified; K92.2 Gastrointestinal hemorrhage, unspecified; I10 Essential (primary) hypertension; E10.9 Type 1 diabetes mellitus without complications; Z88.7 Allergy status to serum and vaccine; Z79.899 Other long term (current) drug therapy; W01.0XXA Fall on same level from slipping, tripping and stumbling without subsequent striking against object, initial encounter
CPT/HCPCS: 36415; 51702; 70450; 72125; 73030; 73502; 80053; 81001; 85025; 87040; 87086; 96365; 96375; 99285; J0696; J1170; J7030; J7040; J7060; 87088; 87186; 99284

== ENCOUNTER 2019-12-14 12:20 | Emergency (ER) | payer BC ==
[2019-12-14 12:44] VITALS: BP 158/97; PULSE 98
--- NOTE | 2019-12-14 13:07 | EDM.PDOC ---
ED HPI GENERAL MEDICAL PROBLEM - General Chief Complaint: Lower Extremity Injury/Pain Stated Complaint: KNEE AND TOE INJURY Time Seen by Provider: 12/14/19 12:29 Source of Information: Reports: Patient, RN Notes Reviewed - History of Present Illness INITIAL COMMENTS - FREE TEXT/NARRATIVE: 54 yr old female tripped over a gate yesterday, suffered abrasion injury L grt toe, Has a large blister today, mild bruisingl No major pain, is walking OK. No other injury. Left Toe-Hailux Pain Score (Numeric/FACES): 7 - Related Data Allergies Allergy/AdvReac Type Severity Reaction Status Date / Time Influenza Virus Vaccines Allergy Itching Verified 12/14/19 12:31 pneumococcal vaccine Allergy Redness Verified 12/14/19 12:31 Home Meds: Home Meds Docusate Sodium [Colace] 100 mg PO BID PRN 10/05/18 [History] Ferrous Sulfate [Feosol] 325 mg PO DAILY 10/05/18 [History] Insulin Aspart [NovoLOG] 0 units SQ QID 10/05/18 [History] Insulin Glarg,Human.Rec.Analog [Lantus] 12 units SQ DAILY 10/05/18 [History] amLODIPine [Norvasc] 5 mg PO DAILY 10/05/18 [History] bisacodyL [Dulcolax] 10 mg RECTAL DAILY PRN 10/05/18 [History] cloNIDine [Catapres-TTS 1] 0.1 mg TOP WEEKLY 10/05/18 [History] cephALEXin [Cephalexin] 500 mg PO TID #20 capsule 12/14/19 [Rx] Past Medical History HEENT History: Reports: Impaired Vision Other HEENT History: wear glasses Cardiovascular History: Reports: Hypertension Respiratory History: Reports: Asthma Gastrointestinal History: Reports: GERD, Pancreatitis Genitourinary History: Reports: UTI, Recurrent 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 History: Reports: Fibroids, Other (See Below) Other 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 History: hysterectomy with overies intact Musculoskeletal History: Reports: Other (See Below) Other Musculoskeletal History: pt takes lyrica for pain Neurological History: Reports: None Psychiatric History: Reports: Depression, Suicide Attempt Endocrine/Metabolic History: Reports: Diabetes, Type I Other Endocrine/Metabolic History: recent weight gain Hematologic History: Reports: Iron Deficiency Other Oncologic History: colon polups Dermatologic History: Reports: None - Infectious Disease History Infectious Disease History: Reports: Chicken Pox - Past Surgical History Cardiovascular Surgical History: Reports: None GI Surgical History: Reports: Appendectomy, Bariatric Procedure, Cholecystectomy Female Surgical History: Reports: Hysterectomy, Other (See Below) Neurological Surgical History: Reports: None Dermatological Surgical History: Reports: Other (See Below) Social & Family History - Family History Family Medical History: Noncontributory - Tobacco Use Smoking Status *Q: Never Smoker Second Hand Smoke Exposure: No - Caffeine Use Caffeine Use: Reports: Coffee Other Caffeine Use: unknown Caffeine Use Comment: unable to assess - Recreational Drug Use Recreational Drug Use: No - Living Situation & Occupation Living situation: Reports: , Other (has children) Occupation: Unemployed Review of Systems - Review of Systems Review Of Systems: See Below Respiratory: Reports: No Symptoms Cardiovascular: Reports: No Symptoms GI/Abdominal: Reports: No Symptoms Musculoskeletal: Reports: Other (L grt toe injury) Skin: Reports: Bruising (L grt toe) Neurological: Denies: Numbness, Tingling ED EXAM, GENERAL - Physical Exam Exam: See Below General Appearance: Alert, No Apparent Distress Head: Atraumatic Neck: Supple Respiratory/Chest: No Respiratory Distress Extremities: Other (there is mild bruising L great toe with a large vesicle superior aspect, mild tenderness only, no pain with torsion, no pain with longitudinal compression) Neurological: Alert, No Motor/Sensory Deficits Course - Vital Signs Last Recorded V/S: Last Vital Signs Temp 97.6 F 12/14/19 12:28 Pulse 98 12/14/19 12:28 Resp 16 12/14/19 12:28 BP 158/97 H 12/14/19 12:28 Pulse Ox 100 12/14/19 12:28 - Re-Assessments/Exams Free Text/Narrative Re-Assessment/Exam: 12/14/19 14:02 was planning to X ray but pt does not see that as being necessary or helpful, she is confident it is not broken. Clinically I agree it is not strongly suspicious for rx, discharge instr. as documented. Departure - Departure Time of Disposition: 13:05 Disposition: Home, Self-Care 01 Condition: Fair Clinical Impression: Toe abrasion, infected - Discharge Information Prescriptions: cephALEXin [Cephalexin] 500 mg PO TID #20 capsule Instructions: Wound Care, Adult, Abrasion, [id number] Referrals: Hema Negrete MD [Primary Care Provider] - Forms: ED Department Discharge Additional Instructions: rest and elevate foot as much a possible, cephalexin 500 mg 3 times daily for 1 week. Prescription has been sent to the clinic pharmacy electronically. Go there now to pick it up. They are only open until 2 PM today. Sepsis Event Note (ED) - Evaluation Sepsis Screening Result: No Definite Risk - Focused Exam Vital Signs: Vital Signs Temp Pulse Resp BP Pulse Ox 12/14/19 12:28 97.6 F 98 16 158/97 H 100
== END 2019-12-14 13:15 | disposition home or self-care (01) ==
LOC: JD.ED 12:20
DX: S90.112A Contusion of left great toe without damage to nail, initial encounter (principal); L08.9 Local infection of the skin and subcutaneous tissue, unspecified; I10 Essential (primary) hypertension; J45.909 Unspecified asthma, uncomplicated; E10.9 Type 1 diabetes mellitus without complications; Z88.7 Allergy status to serum and vaccine; Z79.899 Other long term (current) drug therapy; W18.40XA Slipping, tripping and stumbling without falling, unspecified, initial encounter
CPT/HCPCS: 99283

== ENCOUNTER 2022-07-19 19:02 | Inpatient (IN) | payer BC ==
[2022-07-19] MEDS: Sodium Chloride 0.9% 1,000 ML IV SCH ×2 (19:41→22:33)
[2022-07-19] MEDS ORDERED: cefTRIAXone 1 GM in Sodium Chloride 0.9% 100 ML IV ONE (20:54)
[2022-07-19] MEDS ORDERED: Sodium Chloride 0.9% 1,000 ML IV ONE (20:58)
[2022-07-19] MEDS ORDERED: Ondansetron 4 MG/2 ML SDV IVPUSH PRN (22:05)
[2022-07-19] MEDS ORDERED: Sodium Chloride 0.9% 500 ML IV ONE (23:16)
[2022-07-20] MEDS: Sodium Chloride 0.9% 1,000 ML IV SCH ×3 (02:09→18:23)
[2022-07-20] MEDS ORDERED: Ondansetron 4 MG Tab.DIS PO PRN (06:26)
[2022-07-20] MEDS ORDERED: Cholestyramine/Sucrose Powder 4 GM Packet PO PRN (07:23)
[2022-07-20] MEDS ORDERED: Potassium Bicarbonate/Cit Ac 20 MEQ Effervescent Tab PO ONE ×2 (07:28→09:30)
[2022-07-20] MEDS ORDERED: Chlorthalidone 25 MG Tab PO SCH (09:00)
[2022-07-20] MEDS ORDERED: Calcitriol 0.25 MCG Cap PO SCH (09:00)
[2022-07-20] MEDS ORDERED: Lisinopril 20 MG Tab PO SCH (09:00)
[2022-07-20] MEDS: Insulin Regular, Human 100 Units/ML 3 ML Vial SUBCUT SCH ×3 (09:48→18:23)
[2022-07-20] MEDS: Insulin Glargine,Human Rec. Analog 100 Units/ML 3 ML Pen SUBCUT SCH (09:50)
[2022-07-20] MEDS: Rosuvastatin 10 MG Tab PO SCH (09:51)
[2022-07-20] MEDS: Sertraline 50 MG Tab PO SCH (09:51)
[2022-07-20] MEDS: Heparin Sodium 5,000 Units/ML Vial SUBCUT SCH ×3 (09:51→23:08)
[2022-07-20] MEDS: Saccharomyces Boulardii (Probiotic) 250 MG Cap PO SCH ×2 (09:52→20:23)
[2022-07-20] MEDS: Vancomycin 250 MG Cap PO SCH ×4 (09:53→20:22)
[2022-07-20] MEDS: amLODIPine 5 MG Tab PO SCH (10:00)
[2022-07-20] MEDS ORDERED: Magnesium Sulfate/Water 2 GM/50 ML BAG IV ONE (12:00)
[2022-07-20] MEDS: Acetaminophen 325 MG Tab PO PRN (20:23)
[2022-07-20] MEDS ORDERED: cefTRIAXone 1 GM Vial IM SCH (21:00)
[2022-07-20] MEDS: Temazepam 15 MG Cap PO PRN (21:25)
[2022-07-21] MEDS: Sodium Chloride 0.9% 1,000 ML IV SCH (03:35)
[2022-07-21] MEDS ORDERED: Aluminum Hydroxide/Magnesium Hydroxide/Simethicone Susp 30 ML Cup PO ONE (04:37)
[2022-07-21] MEDS: Heparin Sodium 5,000 Units/ML Vial SUBCUT SCH ×4 (06:34→23:42)
[2022-07-21] MEDS: Rosuvastatin 10 MG Tab PO SCH (08:56)
[2022-07-21] MEDS: Sertraline 50 MG Tab PO SCH (08:59)
[2022-07-21] MEDS: Vancomycin 250 MG Cap PO SCH ×4 (08:59→20:28)
[2022-07-21] MEDS: amLODIPine 5 MG Tab PO SCH (08:59)
[2022-07-21] MEDS: Saccharomyces Boulardii (Probiotic) 250 MG Cap PO SCH ×2 (08:59→20:28)
[2022-07-21] MEDS: Insulin Glargine,Human Rec. Analog 100 Units/ML 3 ML Pen SUBCUT SCH (09:02)
[2022-07-21] MEDS: Insulin Regular, Human 100 Units/ML 3 ML Vial SUBCUT SCH ×4 (09:08→18:38)
[2022-07-21] MEDS: Famotidine 20 MG Tab PO SCH (10:18)
[2022-07-21] MEDS: Lactated Ringers 1,000 ML IV SCH ×2 (10:19→23:41)
[2022-07-21] MEDS: Temazepam 15 MG Cap PO PRN (20:36)
[2022-07-22] MEDS ORDERED: Potassium Chloride 20 MEQ Tab.ER PO ONE (06:00)
[2022-07-22] MEDS: Heparin Sodium 5,000 Units/ML Vial SUBCUT SCH ×3 (06:54→23:27)
[2022-07-22] MEDS: Dextrose 5%-Lact Ringers w/KCl 1,000 ML IV SCH ×2 (07:20→20:56)
[2022-07-22] MEDS ORDERED: cloNIDine 0.1 MG/Day Transdermal Patch TOP SCH (09:00)
[2022-07-22] MEDS ORDERED: Insulin Glargine,Human Rec. Analog 100 Units/ML 3 ML Pen SUBCUT SCH (09:00)
[2022-07-22] MEDS: Saccharomyces Boulardii (Probiotic) 250 MG Cap PO SCH ×2 (09:32→20:56)
[2022-07-22] MEDS: Rosuvastatin 10 MG Tab PO SCH (09:32)
[2022-07-22] MEDS: Famotidine 20 MG Tab PO SCH (09:32)
[2022-07-22] MEDS: amLODIPine 5 MG Tab PO SCH (09:32)
[2022-07-22] MEDS: Sertraline 50 MG Tab PO SCH (09:32)
[2022-07-22] MEDS: Vancomycin 250 MG Cap PO SCH ×4 (09:33→20:56)
[2022-07-22] MEDS: Insulin Regular, Human 100 Units/ML 3 ML Vial SUBCUT SCH ×3 (09:38→18:16)
[2022-07-22] MEDS: Temazepam 15 MG Cap PO PRN (21:02)
[2022-07-22] MEDS: Acetaminophen 325 MG Tab PO PRN (21:06)
[2022-07-23] MEDS ORDERED: Potassium Chloride 20 MEQ Tab.ER PO ONE (06:23)
[2022-07-23] MEDS: Heparin Sodium 5,000 Units/ML Vial SUBCUT SCH ×3 (06:53→23:13)
[2022-07-23] MEDS: Insulin Glargine,Human Rec. Analog 100 Units/ML 3 ML Pen SUBCUT SCH (08:40)
[2022-07-23] MEDS: Insulin Regular, Human 100 Units/ML 3 ML Vial SUBCUT SCH ×3 (08:40→18:34)
[2022-07-23] MEDS: Famotidine 20 MG Tab PO SCH (08:41)
[2022-07-23] MEDS: Vancomycin 250 MG Cap PO SCH ×4 (08:41→20:32)
[2022-07-23] MEDS: Rosuvastatin 10 MG Tab PO SCH (08:41)
[2022-07-23] MEDS: amLODIPine 5 MG Tab PO SCH (08:42)
[2022-07-23] MEDS: Sertraline 50 MG Tab PO SCH (08:42)
[2022-07-23] MEDS: Saccharomyces Boulardii (Probiotic) 250 MG Cap PO SCH ×2 (08:42→20:31)
[2022-07-23] MEDS: Calcitriol 0.25 MCG Cap PO SCH (08:53)
[2022-07-23] MEDS: Dextrose 5%-Lact Ringers w/KCl 1,000 ML IV SCH (10:10)
[2022-07-23] MEDS: Acetaminophen 325 MG Tab PO PRN (20:32)
[2022-07-23] MEDS: Temazepam 15 MG Cap PO PRN (20:40)
[2022-07-24] MEDS: Heparin Sodium 5,000 Units/ML Vial SUBCUT SCH ×3 (06:46→23:04)
[2022-07-24] MEDS ORDERED: Potassium Chloride 20 MEQ Tab.ER PO ONE (06:46)
[2022-07-24] MEDS: amLODIPine 5 MG Tab PO SCH (08:03)
[2022-07-24] MEDS: Sertraline 50 MG Tab PO SCH (08:03)
[2022-07-24] MEDS: Famotidine 20 MG Tab PO SCH (08:03)
[2022-07-24] MEDS: Saccharomyces Boulardii (Probiotic) 250 MG Cap PO SCH ×2 (08:07→20:58)
[2022-07-24] MEDS: Rosuvastatin 10 MG Tab PO SCH (08:07)
[2022-07-24] MEDS: Vancomycin 250 MG Cap PO SCH ×4 (08:07→20:58)
[2022-07-24] MEDS: Insulin Lispro 100 Unit/ML 3 ML KwikPen SUBCUT SCH ×4 (09:13→20:58)
[2022-07-24] MEDS: Insulin Glargine,Human Rec. Analog 100 Units/ML 3 ML Pen SUBCUT SCH (09:14)
[2022-07-24] MEDS: Acetaminophen 325 MG Tab PO PRN (20:57)
[2022-07-24] MEDS: Temazepam 15 MG Cap PO PRN (20:58)
[2022-07-25] MEDS: Insulin Lispro 100 Unit/ML 3 ML KwikPen SUBCUT SCH ×4 (06:47→20:48)
[2022-07-25] MEDS: Heparin Sodium 5,000 Units/ML Vial SUBCUT SCH ×3 (06:48→23:37)
[2022-07-25] MEDS: Rosuvastatin 10 MG Tab PO SCH (08:09)
[2022-07-25] MEDS: amLODIPine 5 MG Tab PO SCH (08:09)
[2022-07-25] MEDS: Vancomycin 250 MG Cap PO SCH ×4 (08:09→20:46)
[2022-07-25] MEDS: Saccharomyces Boulardii (Probiotic) 250 MG Cap PO SCH ×2 (08:09→20:46)
[2022-07-25] MEDS: Famotidine 20 MG Tab PO SCH (08:09)
[2022-07-25] MEDS: Sertraline 50 MG Tab PO SCH (08:10)
[2022-07-25] MEDS: Insulin Glargine,Human Rec. Analog 100 Units/ML 3 ML Pen SUBCUT SCH (08:17)
[2022-07-25] MEDS: Temazepam 15 MG Cap PO PRN (20:46)
[2022-07-25] MEDS: Acetaminophen 325 MG Tab PO PRN (20:47)
[2022-07-26] MEDS: Insulin Glargine,Human Rec. Analog 100 Units/ML 3 ML Pen SUBCUT SCH (08:17)
[2022-07-26] MEDS: Sertraline 50 MG Tab PO SCH (08:18)
[2022-07-26] MEDS: Famotidine 20 MG Tab PO SCH (08:18)
[2022-07-26] MEDS: Vancomycin 250 MG Cap PO SCH (08:18)
[2022-07-26] MEDS: Saccharomyces Boulardii (Probiotic) 250 MG Cap PO SCH (08:18)
[2022-07-26] MEDS: Rosuvastatin 10 MG Tab PO SCH (08:19)
[2022-07-26] MEDS: amLODIPine 5 MG Tab PO SCH (08:19)
[2022-07-26] MEDS: Heparin Sodium 5,000 Units/ML Vial SUBCUT SCH (08:20)
[2022-07-26] MEDS: Insulin Lispro 100 Unit/ML 3 ML KwikPen SUBCUT SCH ×2 (08:25→11:29)
[2022-07-26] MEDS: Calcitriol 0.25 MCG Cap PO SCH (09:15)
[2022-07-26 11:28] VITALS: BP 116/70; PULSE 72
[2022-07-28] MEDS ORDERED: Chlorthalidone 25 MG Tab PO SCH (09:00)
[2022-07-28] MEDS ORDERED: Lisinopril 20 MG Tab PO SCH (09:00)
== END 2022-07-26 12:40 | disposition home or self-care (01) | DRG 248 ==
LOC: JD.ED 19:02 → JD.MS 21:10
PROVIDERS: ADMIT Internal Medicine; ATTEND Internal Medicine
DX: A04.72 Enterocolitis due to Clostridium difficile, not specified as recurrent (principal); K52.1 Toxic gastroenteritis and colitis; E87.6 Hypokalemia; E86.0 Dehydration; E10.65 Type 1 diabetes mellitus with hyperglycemia; N17.9 Acute kidney failure, unspecified; R41.0 Disorientation, unspecified; H54.7 Unspecified visual loss; K21.9 Gastro-esophageal reflux disease without esophagitis; F32.A Depression, unspecified; E61.1 Iron deficiency; J45.909 Unspecified asthma, uncomplicated; I95.9 Hypotension, unspecified; N18.32 Chronic kidney disease, stage 3b; E10.22 Type 1 diabetes mellitus with diabetic chronic kidney disease; Z88.7 Allergy status to serum and vaccine; Z79.899 Other long term (current) drug therapy; Z90.49 Acquired absence of other specified parts of digestive tract; Z98.84 Bariatric surgery status
CPT/HCPCS: 36415; 80048; 80053; 82947; 83605; 83735; 85025; 85027; 87040; 96361; 96365; 99285; 99285-25; A9270-GY; J0696; J1644; J1815; J1815-GY; J3475; J3480; J3490; J7030; J7120